=== PATIENT | male | born 1960 | race Caucasian/White ===

== ENCOUNTER 2016-07-06 14:42 | Inpatient (IN) | payer MEDICARE, MEDICAID ==
[~2016-07-06] VITALS: Ht 177.8 cm; Wt 56.7 kg
[~2016-07-06 14:42] MED LIST: ACID1TAB12 GT; AMIN30LI25 GT; BLOO-140 IN; EPOE1VIA4 IJ; ESCI10TA GT; GABA-534 GT; HYDR-3026 GT; HYDR-4075 GT; INSU100V26 SQ; IPRA3AMP IH; LORA2TAB GT; NUTR100037 GT; OMEP40CA37 GT; ONDA-25 GT; [UNRECOGNIZED DRUG - CODE] GT
--- NOTE | 2016-07-06 14:53 | NUR ---
PT TRANSFER BY [facility] "LOW BLOOD PRESSURE AT DIALYSIS 74/43". PT ALWAKE ORIENTED WITH TRACH ON COOL AEROSOL. NO DISTRESS. DENIES ANY PAIN. PT HAS COLOSTOMY BAG. PT HAS SUPRAPUBIC CATH. PLACED ON MONITOR. VSS. AWAITING MD ORDER
[2016-07-06 15:34] LABS: BASOPHILS # (AUTO) 0.1 /CMM (0.0-0.2); BASOPHILS % (AUTO) 0.3 % (0.0-2.0); EOSINOPHILS # (AUTO) 0.2 /CMM (0.0-0.7); EOSINOPHILS % (AUTO) 0.8 % (0.0-6.0); HEMATOCRIT 42 % (39-51); HEMOGLOBIN 12.4 g/dL (13.5-17.5); LYMPHOCYTES # (AUTO) 0.5 /CMM (0.8-4.8); LYMPHOCYTES % (AUTO) 2.5 % (20.0-44.0); MEAN CORPUSCULAR HEMOGLOBIN 33 PG (26.0-33.0); MEAN CORPUSCULAR HGB CONC 30 g/dl (31.0-36.0); MEAN CORPUSCULAR VOLUME 110 fL (80-96); MONOCYTES # (AUTO) 1.8 /CMM (0.1-1.30); NEUTROPHILS # (AUTO) 17.1 /CMM (1.8-8.9); NEUTROPHILS % (AUTO) 87.4 % (43.0-81.0); PLATELET COUNT (AUTO) 315 /CMM (150-450); RDW COEFFICIENT OF VARIATION 18.7 (11.5-15.0); RED BLOOD CELL COUNT(AUTO) 3.77 MIL/uL (4.5-6.0); WHITE BLOOD COUNT (AUTO) 19.7 K/uL (4.3-11.0)
[2016-07-06 15:44] LABS: CALCIUM, SERUM 10.1 mg/dL (8.5-10.1); POTASSIUM 4.3 mmol/L (3.5-5.1)
[2016-07-06 15:49] LABS: INR 1.06 (0.87-1.13)
[2016-07-06 15:51] LABS: ALBUMIN 2.9 g/dL (3.4-5.0); BILIRUBIN,DIRECT 0.1 mg/dL (0.0-0.2); BILIRUBIN,TOTAL 0.4 mg/dL (0.2-1.0); TOTAL PROTEIN, SERUM 7.7 g/dL (6.4-8.2)
[2016-07-06 15:52] LABS: TROPONIN I 0.07 ng/mL (0.00-0.056)
[2016-07-06 16:02] LABS: PARTIAL THROMBOPLASTIN TIME > 240 SEC (23-34)
[2016-07-06] MEDS ORDERED: VANCOMYCIN 1 GM in IV D5W 250 ML IV ONE (16:30)
[2016-07-06] MEDS ORDERED: CEFEPIME 1 GM in IV D5W 50 ML IV ONE (16:30)
--- NOTE | 2016-07-06 16:30 | NUR ---
TYLER #20 IV ACCESS BLOOD SAMPLE COLLECTED SENT TO LAB
[2016-07-06] MEDS ORDERED: IV SET PRIMARY PUMP SET 1 EA INFUS.SET MC ONE (16:44)
[2016-07-06] MEDS ORDERED: IV NS 0.9% 500 ML IV ONE (16:44)
--- NOTE | 2016-07-06 16:51 | NUR ---
PAGED DR KRIS SALDANA
[2016-07-06] MEDS ORDERED: IV NS 0.9% 500 ML BAG IV ONE (17:00)
[2016-07-06] MEDS ORDERED: LIDOCAINE 2% JEL UROJET 10 ML MM ONE (17:00)
--- NOTE | 2016-07-06 17:00 | NUR ---
GAVE REPORT TO YULIET
--- NOTE | 2016-07-06 17:00 | NUR ---
GAVE REPORT TO VIVIANA HORVATH TELEMETRY [id number]
[2016-07-06 17:11] LABS: BAND % (MANUAL) 3 % (0.0-5.0); LYMPHOCYTES % (MANUAL) 4 % (16-48); MONOCYTES % (MANUAL) 11 % (0-11.0); NEUTROPHILS % (MANUAL) 82 (42-76)
--- NOTE | 2016-07-06 17:29 | NUR ---
ULTRASOUND AT BEDSIDE
[2016-07-06] MEDS ORDERED: METO75TA GT (17:33)
[2016-07-06] MEDS ORDERED: ALBU2.5V38 NEB (17:33)
[2016-07-06] MEDS ORDERED: IPRA0.2S49 NEB (17:33)
[2016-07-06] MEDS ORDERED: ASCO500T9 GT (17:33)
[2016-07-06] MEDS ORDERED: INSU100I14 SQ (17:33)
[2016-07-06] MEDS ORDERED: METO10TA3 GT (17:33)
[2016-07-06] MEDS ORDERED: FOLI0.8T2 GT (17:33)
[2016-07-06] MEDS ORDERED: LANS15CA5 GT (17:33)
[2016-07-06] MEDS ORDERED: HYDR-4076 PO (17:33)
[2016-07-06] MEDS ORDERED: POLY15DR57 EACHEYE (17:33)
[2016-07-06] MEDS ORDERED: ACET-868 GT (17:33)
[2016-07-06] MEDS ORDERED: ZINC220T GT (17:33)
[2016-07-06] MEDS ORDERED: PREG25CA GT (17:33)
--- NOTE | 2016-07-06 18:09 | NUR ---
TRANSFER PT VIA GURNEY VIA ACLS PROTOCOL. GAVE REPORT TO YULIET. PT HAS RASHES/REDNESS ON NECK AREA. SHE WILL UPDATE ADMITTING MD. ALSO INFORM NO URINE OUTPUT ON SUPRAPUBIC CATHETER FOR RESIDENT ATHLETIC TRAINER TO COLLECT WHEN PT HAS URINE.
--- NOTE | 2016-07-06 18:15 | NUR ---
LABORER FILTER PLANT NOTES RECEIVED PT FROM E.R. STAFF, AWAKE, ALERT AND ORIENTED, NO COMPLAINT OF PAIN, PT WITH COMPLAINT OF ITCHINESS AT THE NECK AREA, NOT IN DISTRESS, TRACH IN PLACE, INFORMED DR. SALDANA, ADMITTING ORDERS GIVEN, PER MD CONTINUE HOME MEDS, FAXED HOME MEDS TO PHARMACY, VITAL SIGNS TAKEN AND RECORDED, KEPT PT COMFORTABLE.
--- NOTE | 2016-07-06 18:15 | NUR ---
EXTRAS CASTING DIRECTOR NOTES PER OJSE G NAGEL TO CONTINUE CEFEPIME, PT ALLERGIC TO PENICILLIN, ENDORSED TO GENERAL MAINTENANCE MECHANIC NURSE TO FOLLOW UP.
[2016-07-06 18:20] VITALS: BP 116/71
[2016-07-06 19:00] VITALS: BP 106/67
[2016-07-06] MEDS ORDERED: ALBUTEROL FS 2.5 MG/3 ML VIAL.NEB NEB PRN (19:00)
[2016-07-06] MEDS ORDERED: ACETAMINOPHEN 650 MG/20.3 ML UDC GT PRN (19:00)
[2016-07-06] MEDS ORDERED: POLYVINYL ALCOHOL 15 ML BOTTLE EACHEYE PRN (19:00)
[2016-07-06] MEDS ORDERED: DEXTROSE 50%-WATER 50 ML DISP.SYRIN IV PRN ×2 (19:00)
[2016-07-06] MEDS ORDERED: RENAL NOVASOURCE 1,000 ML BOTTLE GT PRN (19:00)
[2016-07-06] MEDS ORDERED: IPRATROPIUM NEB FS 0.5 MG/2.5 ML AMPUL.NEB NEB PRN (19:00)
[2016-07-06 20:00] VITALS: BP 106/67
--- NOTE | 2016-07-06 20:00 | NUR ---
RECEIVED PATIENT IN BED, ALERT AND ORIENTED X3, CALM WITH EPISODES OF RESTLESSNESS AND ANXIETY. ON COOL AEROSOL WITH 28% O2 AND 5LPM VIA TRACH. LUNG SOUNDS WITH RONCHI. ABLE TO SPEAK, WITH DELAYED SPEECH, UNDERSTANDABLE, ABLE TO VERBALIZE NEEDS. ABDOMEN SOFT AND NON-TENDER, PEG TUBE DEPENDENT, NOVASOURCE AT 65 CC/HR, FEEDING TOLERATED WELL, ILEOSTOMY BAG CHANGED, OUTPUT OF GREENISH DRAINAGE WITH THIN LIQUID CONSISTENCY, SUPRAPUBIC SITE WITH EXCORIATION, CLEANSE WITH NS AND COVERED WITH DRY DRESSING, CATHETER DRAINING OF CLOUDY URINE. PATIENT IS ALSO HAS ESRD ON HD. S/P HD BEFORE ADMISSION. SACRAL PARTIAL THICKNESS LOSS, CLEANSE WITH NS, PAT DRY, PROTECTED WITH MEPILEX. NOTED EXCORIATION SURROUNDING THE ILEOSTOMY SITE. KEPT HOB ELEVATED, ON ASPIRATION PRECAUTION. SKIN ASSESSMENT PERFORMED, ORIENTED TO ROOM, BED AND USE OF CALL LIGHT. WILL CONTINUE TO MONITOR.
[2016-07-06] MEDS: METOPROLOL TARTRATE 25 MG TABLET GT SCH (21:00)
[2016-07-06] MEDS: hydrALAZINE HCL 25 MG TABLET GT SCH (21:00)
[2016-07-06] MEDS ORDERED: BLOOD SUGAR DIAGNOSTIC 1 EACH STRIP IN SCH (22:00)
[2016-07-06] MEDS: BLOOD SUGAR DIAGNOSTIC 1 EACH STRIP IN SCH (23:00)
[2016-07-06] MEDS: INSULIN ASPART NOVOLOG 100 UNIT/ML CARTRIDGE SQ PRN (23:03)
--- NOTE | 2016-07-06 23:03 | NUR ---
BG 86 MG/DL, NO INSULIN COVERAGE. PATIENT ON NOVASOURCE 65 CC/HR VIA PEG TUBE FEEDING. WILL CONTINUE TO MONITOR.
[2016-07-07] VITALS (7 sets, daily range): BP systolic 88–136; BP diastolic 50–78
[2016-07-07] MEDS: METOCLOPRAMIDE HCL 10 MG TABLET GT SCH ×5 (00:29→23:55)
--- NOTE | 2016-07-07 01:15 | NUR ---
PATIENT HAS X2 EPISODES OF VOMITING WITH WHITISH EMESIS, OUTPUT OF 300 CC, KEPT HOB ELEVATED. PEG TUBE FEEDING HELD. PROVIDED GOOD ORAL CARE. KEPT SAFE AND COMFORTABLE, WILL CONTINUE TO MONITOR.
--- NOTE | 2016-07-07 03:00 | NUR ---
PATIENT VOMITED X1 WITH 300 CC OF STOMACH CONTENT EMESIS, GT FEEDING HOLD FOR 2 HOURS. KEPT HOB ELEVATED, ON ASPIRATION PRECAUTION. CALLED DR. TORRES, AWAITING CALL BACK.
--- NOTE | 2016-07-07 04:15 | NUR ---
NEW ORDER FOR ZOFRAN 4 MG IVP Q4HRS PRN FOR N/V, ORDER NOTED AND CARRIED OUT
[2016-07-07] MEDS ORDERED: ONDANSETRON HCL/PF 4 MG/2 ML VIAL ONE (04:52)
[2016-07-07] MEDS: hydrALAZINE HCL 25 MG TABLET GT SCH ×3 (05:00→21:00)
--- NOTE | 2016-07-07 05:08 | NUR ---
PATIENT REFUSING REGLAN, PER PATIENT "MAKES ME THROW UP", PATIENT VOMITTED X4 OF NOW
[2016-07-07] MEDS: BLOOD SUGAR DIAGNOSTIC 1 EACH STRIP IN SCH ×4 (06:06→21:44)
[2016-07-07] MEDS: INSULIN ASPART NOVOLOG 100 UNIT/ML CARTRIDGE SQ PRN ×2 (06:10→21:48)
--- NOTE | 2016-07-07 06:14 | NUR ---
BG 77 MG/DL, NO INSULIN COVERAGE, GT FEEDING RE STARTED
--- NOTE | 2016-07-07 06:23 | NUR ---
PATIENT IS ALERT AND AWAKE, WITH EPISODES OF RESTLESSNESS, CALLING OUT, NO SOB, ON TRACH, ON COOL AEROSOL AT 02 28%, ON 5LPM VIA TRACH COLLAR. ABLE TO VERBALIZE NEEDS, DENIES ANY PAIN AT THIS TIME. VOMITED X4, GIVEN ZOFRAN 4 MG IVP Q4HRS PRN. GIVEN REGLAN AT 12 AM, PATIENT STARTED VOMITING, BEFORE REGLAN, PATIENT DID NO VOMIT. ON SCHEDULED AT 6AM, PATIENT REFUSED REGLAN. VOMITED AGAIN AT 4AM. GT FEEDING HELD FOR 2 HOURS, RESUMED AT 0600. BG IS 77, PATIENT SAID "I FEEL ALRIGHT." SUPRAPUBIC CATHETER HAS SCANT CLOUDY OUTPUT, ILEOSTOMY HAS 900 CC GREENISH, LIQUID OUTPUT. KEPT HOB ELEVATED, SUCTIONED PRN, KEPT SAFE AND COMFORTABLE, CALL LIGHT WITHIN REACH.
--- NOTE | 2016-07-07 07:30 | NUR ---
HAND BRUSH FILLER NOTES PT IN BED, ASLEEP, EASY TO AROUSE, NO COMPLAINT OF PAIN, NOT IN DISTRESS, TRACH IN PLACE WITH COOL AEROSOL, NO EPISODE OF NAUSEA OR VOMITING AT THIS TIME, GT FEEDING INFUSING WELL, KEPT HOB ELEVATED, REPOSITIONED FOR COMFORT.
[2016-07-07 07:43] LABS: CALCIUM, SERUM 9.8 mg/dL (8.5-10.1); CREATININE 3.9 mg/dL (0.6-1.3); POTASSIUM 4.5 mmol/L (3.5-5.1)
[2016-07-07] MEDS ORDERED: PANTOPRAZOLE 40 MG/PACK PACK GT SCH (09:00)
[2016-07-07 09:22] LABS: BASOPHILS # (AUTO) 0.1 /CMM (0.0-0.2); BASOPHILS % (AUTO) 0.4 % (0.0-2.0); EOSINOPHILS # (AUTO) 0.4 /CMM (0.0-0.7); EOSINOPHILS % (AUTO) 3.5 % (0.0-6.0); HEMATOCRIT 42 % (39-51); HEMOGLOBIN 12.4 g/dL (13.5-17.5); LYMPHOCYTES # (AUTO) 0.6 /CMM (0.8-4.8); MEAN CORPUSCULAR HEMOGLOBIN 33 PG (26.0-33.0); MEAN CORPUSCULAR HGB CONC 30 g/dl (31.0-36.0); MEAN CORPUSCULAR VOLUME 109 fL (80-96); MONOCYTES # (AUTO) 1.7 /CMM (0.1-1.30); MONOCYTES % (AUTO) 14.4 % (2.0-12.0); NEUTROPHILS # (AUTO) 9.1 /CMM (1.8-8.9); NEUTROPHILS % (AUTO) 76.7 % (43.0-81.0); PLATELET COUNT (AUTO) 360 /CMM (150-450); RDW COEFFICIENT OF VARIATION 20.6 (11.5-15.0)
[2016-07-07] MEDS: METOPROLOL TARTRATE 25 MG TABLET GT SCH ×2 (09:46→21:00)
[2016-07-07] MEDS: ZINC SULFATE 220 MG CAPSULE GT SCH (09:46)
[2016-07-07] MEDS: ONDANSETRON HCL/PF 4 MG/2 ML VIAL IV PRN ×2 (09:46→17:19)
[2016-07-07] MEDS: VIT B CMPLX 3/FA/VIT C/BIOTIN 1 TAB TABLET GT SCH (09:46)
[2016-07-07] MEDS: GABAPENTIN 300 MG CAPSULE GT SCH ×3 (09:47→17:09)
[2016-07-07] MEDS: ASCORBIC ACID 500 MG TABLET GT SCH (09:47)
[2016-07-07] MEDS: PREGABALIN 25 MG CAPSULE GT SCH ×2 (09:47→17:09)
[2016-07-07 12:11] LABS: BAND % (MANUAL) 1 % (0.0-5.0); EOSINOPHILS % (MANUAL) 7 % (0-4); LYMPHOCYTES % (MANUAL) 5 % (16-48); MONOCYTES % (MANUAL) 9 % (0-11.0); NEUTROPHILS % (MANUAL) 78 (42-76)
[2016-07-07 12:12] LABS: ANISOCYTOSIS 2+
[2016-07-07 12:13] LABS: PLATELET ESTIMATE ADEQU
[2016-07-07 12:14] LABS: WHITE BLOOD COUNT (AUTO) 11.8 K/uL (4.3-11.0)
[2016-07-07] MEDS ORDERED: Z GUARD REMEDY 2 OZ OINT TP PRN (13:00)
[2016-07-07] MEDS: Z GUARD REMEDY 2 OZ OINT TP SCH ×2 (13:00→17:10)
--- NOTE | 2016-07-07 13:15 | NUR ---
WOUND CARE CONSULT: PATIENT SEEN AND SKIN ASSESSMENT DONE. PARAPLEGIC AND TRACH DEPENDENT PATIENT, ALERT, ON GT FEEDING, HAS COLOSTOMY AND SUPRAPUBIC CATHETER, ROBERTO 12, NURSING STAFF ORDERED REGGIE ISOFLEX LANCE BED AND WILL BE PLACED WHEN AVAILABLE IN THE UNIT. SEE TODAY'S SKIN ASSESSMENT IN PCS ALONG WITH RECOMMENDATIONS. RECOMMEND SKIN/MOISTURE PROTECTION WITH Z GUARD ORDERED, TURN AND REPOSITION EVERY 2 HRS PATIENT CONDITION PERMITS, OFFLOAD BOTH HEELS. ALL DISCUSSED WITH NURSING STAFF. MD IN AGREEMENT WITH PLAN OF CARE. Addendum: 07/07/16 at 1319 by ALEAH TOBIN WNDNU Amended: Links added.
--- NOTE | 2016-07-07 13:28 | NUR ---
INSURANCE UNDERWRITER SALES NOTES DR. CHAIDEZ INFORMED OF PT'S EPISODES OF NAUSEA AND VOMITING WELL LOW BLOOD PRESSURE, MD AGREED WITH PROGRAM SUPPORT CLERK'S RECOMMENDATION TO REDUCE GT FEEDING RATE TO 40CC/HR, PT DOES NOT COMPLAIN OF HEADACHE OR DIZZINESS, WILL CONTINUE TO MONITOR.
[2016-07-07] MEDS: CLOTRIMAZOLE 1% 15 GM TUBE TP SCH ×2 (15:27→17:10)
[2016-07-07] MEDS: HYDROGEL DRESSING 90 GM TUBE TP SCH (15:27)
[2016-07-07] MEDS: CEFEPIME 1 GM in IV D5W 50 ML IV SCH (18:00)
--- NOTE | 2016-07-07 18:47 | NUR ---
SWITCHBOARD RECEPTIONIST NOTES PT IN BED, AWAKE, ALERT AND ORIENTED, NO COMPLAINT OF PAIN, NO EPISODE OF NAUSEA OR VOMITING AT THIS TIME, GT FEEDING INFUSING WELL, COLOSTOMY BAG IN PLACE, DRAINED NEEDED, SKIN TREATMENTS DONE, SUPRAPUBIC CATH IN PLACE, DRAINING MINIMALLY, PT REFUSED REGLAN AND CEFEPIME, STATED REGLAN MAKES HIM VOMIT AND CEFEPIME GIVES HIM RASHES AND ITCHINESS, PM CARE RENDERED, REPOSITIONED FOR COMFORT AND CIRCULATION, ALL NEEDS ATTENDED.
--- NOTE | 2016-07-07 19:48 | NUR ---
RECEIVED PATIENT ALERT AND AWAKE, WITH EPISODES OF RESTLESSNESS, CALLING OUT. ON TRACH WITH COOL AEROSOL AT 5LPM WITH 02 OF 28%. NO SOB, NO DISTRESS, 02 SAT 100%, DENIES ANY PAIN AT THIS TIME. ON GT FEEDING AT 40 CC/HR, TOLERATING WELL AT THIS TIME, NO VOMITING NOTED AT THIS TIME, SUPRAPUBIC CATHETER IS PATENT, DRAINING WITH SCANT AND CLOUDY URINE. COLOSTOMY IS DRAINING WELL WITH GREENISH AND LIQUID STOOL. KEPT HOB ELEVATED, REPOSITIONED FOR COMFORT. CALL LIGHT WITHIN REACH.
[2016-07-07] MEDS: RENAL NOVASOURCE 1,000 ML BOTTLE GT PRN (20:23)
--- NOTE | 2016-07-07 21:48 | NUR ---
BG 98 MG/DL, NO INSULIN COVERAGE, PATIENT ON GT FEEDING AT 40 CC/HR. NO VOMITING AT THIS TIME.
--- NOTE | 2016-07-07 21:50 | NUR ---
APRESOLINE AND LOPRESSOR HELD, BP 97/58 HR 84. WILL CONTINUE TO MONITOR.
[2016-07-08] VITALS: BP 104/61
[2016-07-08] MEDS: ONDANSETRON HCL/PF 4 MG/2 ML VIAL IV PRN (00:13)
--- NOTE | 2016-07-08 00:30 | NUR ---
PATIENT STARTED VOMITING X2, EMESIS IS STOMACH CONTENTS, MOSTLY MILK PARTICLES, GT FEEDING HELD FOR 2 HOURS. SUPPORTIVE CARE PROVIDED, ASPIRATION PRECAUTION, WILL CONTINUE TO MONITOR.
--- NOTE | 2016-07-08 00:45 | NUR ---
PATIENT STILL VOMITING, NOTED RUST COLORED EMESIS, WILL NOTIFY
--- NOTE | 2016-07-08 01:04 | NUR ---
NOTIFIED DR. CHAIDEZ REGARDING PT HAVING EPISODES OF VOMITING RUST COLORED EMESIS. MD ORDERED CBC X2 Q4HRS, TYPE AND CROSS X1, 1 UNIT PRBC, ABD ULISIS KUB, PROTONIX 40 MG IVP Q12 HOURS, DISCONTINUE PROTONIX 4O MG VIA GT.
[2016-07-08] MEDS ORDERED: PANTOPRAZOLE 40 MG VIAL ONE (01:27)
[2016-07-08] MEDS: PANTOPRAZOLE 40 MG VIAL IV SCH ×3 (01:31→21:45)
--- NOTE | 2016-07-08 01:38 | NUR ---
VOMITING CEASED, PATIENT VERBALIZED RELIEF. PROVIDED GOOD BED BATH, ORAL CARE, ILEOSTOMY CARE AND WOUND CARE.
[2016-07-08 02:24] LABS: BASOPHILS % (AUTO) 0.3 % (0.0-2.0); EOSINOPHILS # (AUTO) 0.3 /CMM (0.0-0.7); EOSINOPHILS % (AUTO) 2.2 % (0.0-6.0); HEMATOCRIT 46 % (39-51); HEMOGLOBIN 13.7 g/dL (13.5-17.5); LYMPHOCYTES # (AUTO) 0.5 /CMM (0.8-4.8); LYMPHOCYTES % (AUTO) 4.4 % (20.0-44.0); MEAN CORPUSCULAR HEMOGLOBIN 33 PG (26.0-33.0); MEAN CORPUSCULAR HGB CONC 30 g/dl (31.0-36.0); MEAN CORPUSCULAR VOLUME 110 fL (80-96); MONOCYTES # (AUTO) 1.6 /CMM (0.1-1.30); MONOCYTES % (AUTO) 12.8 % (2.0-12.0); NEUTROPHILS # (AUTO) 9.9 /CMM (1.8-8.9); NEUTROPHILS % (AUTO) 80.3 % (43.0-81.0); PLATELET COUNT (AUTO) 337 /CMM (150-450); RDW COEFFICIENT OF VARIATION 20.4 (11.5-15.0); RED BLOOD CELL COUNT(AUTO) 4.15 MIL/uL (4.5-6.0); WHITE BLOOD COUNT (AUTO) 12.4 K/uL (4.3-11.0)
[2016-07-08] MEDS ORDERED: METOCLOPRAMIDE HCL 10 MG/2 ML VIAL ONE (03:56)
[2016-07-08 04:00] VITALS: BP 93/67
[2016-07-08 04:14] LABS: BAND % (MANUAL) 1 % (0.0-5.0); EOSINOPHILS % (MANUAL) 2 % (0-4); LYMPHOCYTES % (MANUAL) 2 % (16-48); MONOCYTES % (MANUAL) 13 % (0-11.0); NEUTROPHILS % (MANUAL) 82 (42-76)
[2016-07-08 04:15] LABS: ANISOCYTOSIS 3+; PLATELET ESTIMATE ADEQUATE
[2016-07-08] MEDS: hydrALAZINE HCL 25 MG TABLET GT SCH ×3 (04:47→20:55)
--- NOTE | 2016-07-08 04:54 | NUR ---
APRESOLINE HELD, SECONDARY TO DECREASED BP 108/67 HR 80
[2016-07-08] MEDS: METOCLOPRAMIDE HCL 10 MG/2 ML VIAL IV SCH ×4 (05:41→23:20)
--- NOTE | 2016-07-08 05:57 | NUR ---
PATIENT RESTING COMFORTABLY, NO DISTRESS, NO SOB, NO VOMITING AT THIS TIME. PROVIDED GOOD ORAL CARE.
[2016-07-08] MEDS: BLOOD SUGAR DIAGNOSTIC 1 EACH STRIP IN SCH ×4 (06:12→21:42)
[2016-07-08] MEDS: INSULIN ASPART NOVOLOG 100 UNIT/ML CARTRIDGE SQ PRN ×2 (06:16→22:55)
--- NOTE | 2016-07-08 06:16 | NUR ---
BG 95 MG/DL, NO INSULIN COVERAGE
--- NOTE | 2016-07-08 06:46 | NUR ---
PATIENT IS RESTING COMFORTABLY, AROUSEABLE BY VOICE AND TOUCH. NO SOB, NO DISTRESS, NO VOMITING AT THIS TIME. NPO FOR KUB IN AM. ADMINISTERED ZOFRAN 4MG IVP, PROTONIX 40 IVP AND REGLAN 10 MG IVP. BP RUNS LOW, BG IS LOW. REPOSITIONED FOR COMFORT, ILEOSTOMY EMPTIED, SUPRAPUBIC CATHETER HAS SCANT OUTPUT, KEPT SAFE AND COMFORTABLE, CALL LIGHT WITHIN REACH.
[2016-07-08 07:09] LABS: BASOPHILS % (AUTO) 0.2 % (0.0-2.0); EOSINOPHILS # (AUTO) 0.1 /CMM (0.0-0.7); HEMATOCRIT 42 % (39-51); HEMOGLOBIN 12.6 g/dL (13.5-17.5); LYMPHOCYTES # (AUTO) 0.6 /CMM (0.8-4.8); LYMPHOCYTES % (AUTO) 3.7 % (20.0-44.0); MEAN CORPUSCULAR HEMOGLOBIN 33 PG (26.0-33.0); MEAN CORPUSCULAR HGB CONC 30 g/dl (31.0-36.0); MEAN CORPUSCULAR VOLUME 109 fL (80-96); MONOCYTES # (AUTO) 1.9 /CMM (0.1-1.30); MONOCYTES % (AUTO) 12.8 % (2.0-12.0); NEUTROPHILS # (AUTO) 12.2 /CMM (1.8-8.9); NEUTROPHILS % (AUTO) 82.3 % (43.0-81.0); PLATELET COUNT (AUTO) 337 /CMM (150-450); RED BLOOD CELL COUNT(AUTO) 3.81 MIL/uL (4.5-6.0); WHITE BLOOD COUNT (AUTO) 14.8 K/uL (4.3-11.0)
--- NOTE | 2016-07-08 07:15 | NUR ---
PATIENT IN BED, ASLEEP BUT EASILY AROUSABLE, NO S/SX OF DISTRESS AT THIS TIME, NO EPISODE OF VOMITING, DENIES PAIN OR DISCOMFORT, HOB ELEVATED AT ALL TIMES, NPO FOR KUB, CALL LIGHT WITHIN REACH, SAFETY MEASURES IN PLACED, WILL CONTINUE TO MONITOR.
[2016-07-08 08:00] VITALS: BP 80/50
[2016-07-08] MEDS: HYDROGEL DRESSING 90 GM TUBE TP SCH (08:32)
[2016-07-08] MEDS: Z GUARD REMEDY 2 OZ OINT TP SCH ×2 (08:33→16:54)
[2016-07-08 08:48] LABS: LYMPHOCYTES % (MANUAL) 5 % (16-48); MONOCYTES % (MANUAL) 7 % (0-11.0); NEUTROPHILS % (MANUAL) 88 (42-76)
[2016-07-08 08:49] LABS: ANISOCYTOSIS 1+; PLATELET ESTIMATE ADEQUATE; TARGET CELLS 1+
[2016-07-08] MEDS: VIT B CMPLX 3/FA/VIT C/BIOTIN 1 TAB TABLET GT SCH (09:00)
[2016-07-08] MEDS: METOPROLOL TARTRATE 25 MG TABLET GT SCH ×2 (09:00→20:55)
[2016-07-08] MEDS: ZINC SULFATE 220 MG CAPSULE GT SCH (09:00)
[2016-07-08] MEDS: GABAPENTIN 300 MG CAPSULE GT SCH ×3 (09:00→16:54)
[2016-07-08] MEDS: ASCORBIC ACID 500 MG TABLET GT SCH (09:00)
[2016-07-08] MEDS: PREGABALIN 25 MG CAPSULE GT SCH ×2 (09:00→16:54)
--- NOTE | 2016-07-08 09:00 | NUR ---
PATIENT NOTED WITH BLOOD PRESSURE OF 77/51, RETAKEN WITH MANUAL BLOOD PRESSURE WITH RESULT OF 80/50, DR. SALDANA MADE AWARE WITH NO NEW ORDER AT THIS TIME, PATIENT IN STABLE CONDITION, NO CHANGE IN LOC, CURRENTLY ON NPO FOR ABDOMINAL X-RAY/KUB, PATIENT DENIES PAIN OR DISCOMFORT AT THIS TIME, CALL LIGHT WITHIN REACH, WILL CONTINUE TO MONITOR.
--- NOTE | 2016-07-08 09:30 | NUR ---
X-RAY TAKEN, RESULT PENDING.
[2016-07-08] MEDS: CLOTRIMAZOLE 1% 15 GM TUBE TP SCH ×2 (11:14→16:55)
[2016-07-08 12:00] VITALS: BP 85/53
[2016-07-08] MEDS ORDERED: RENAL NOVASOURCE 1,000 ML BOTTLE GT SCH (13:00)
--- NOTE | 2016-07-08 13:00 | NUR ---
RECEIVED NEW ORDERS FROM DR. SALDANA, ORDERS NOTED AND CARRIED OUT.
[2016-07-08] MEDS: RENAL NOVASOURCE 1,000 ML BOTTLE GT PRN (13:12)
[2016-07-08 16:00] VITALS: BP 90/58
[2016-07-08 16:04] LABS: APPEARANCE,URINE TURBID (CLEAR); COLOR,URINE YELLOW (YELLOW)
[2016-07-08 16:06] LABS: BILIRUBIN,URINE NEGATIVE (NEGATIVE); BLOOD, URINE 2+ Ery/uL (NEGATIVE); KETONES,URINE NEGATIVE (NEGATIVE); LEUKOCYTE ESTERASE ,URINE 3+ (NEGATIVE); NITRITE, URINE POSITIVE (NEGATIVE); PROTEIN,URINE 3+ mg/dl (NEGATIVE); UGLUCOSE NEGATIVE (NEGATIVE); UROBILINOGEN,URINE NORMAL EU/dL (0.2)
[2016-07-08 16:08] LABS: ADD URINE CULTURE YES; BACTERIA,URINE Rare /HPF (None Seen); SQUAMOUS EPITHELIAL CELL,UR None Seen /HPF (None Seen); WBC,URINE TOO NUMEROUS TO COUN /HPF (0-3)
[2016-07-08] MEDS ORDERED: IV SET PRIMARY PUMP SET 1 EA INFUS.SET MC ONE (17:54)
[2016-07-08] MEDS ORDERED: SECONDARY IV SET 1 EA INFUS.SET MC ONE ×2 (17:54→21:10)
[2016-07-08] MEDS ORDERED: IV NS 0.9% 250 ML IV ONE (17:54)
[2016-07-08] MEDS: CEFEPIME 1 GM in IV D5W 50 ML IV SCH (18:00)
--- NOTE | 2016-07-08 19:00 | NUR ---
RN MS NOTES PATIENT STILL WAITING FOR HEMODIALYSIS, NO SIGNIFICANT CHANGES, ILEOSTOMY DRAINED WITH 150CC OUTPUT, NO EPISODE OF VOMITING DURING THIS SHIFT, HOB ELEVATED AT ALL TIMES FOR ASPIRATION PRECAUTION, PATIENT IS CURRENTLY ON GTF NOVASOURCE 40ML/HR, AND TOLERATING WELL, SAFETY MEASURES WITHIN REACH, CALL LIGHT WITHIN REACH, ENDORSED TO MICA INSPECTOR FOR CLAUDIA.
--- NOTE | 2016-07-08 19:44 | NUR ---
RN MS - INITIAL NOTES PATIENT IN BED CURRENTLY ASLEEP AT THIS TIME. NO S/S OF SOB OR ANY DISCOMFORT NOTED. GT FEEDING IN-PLACE AND INTACT NOVASOURCE RUNNING AT 40 ML/HR. LEFT HAND #[address] AND PATENT[address] FLUSHES VERY WELL AND NO RESISTANCE NOTED. RIGHT IJ HD CATH IN PLACE. PATIENT IS SCHEDULED TO HAVE DIALYSIS TONIGHT. WILL FOLLOW UP.
[2016-07-08 20:00] VITALS: BP_SYST 81; BP_DIAS 45; BP_DIAS 48
--- NOTE | 2016-07-08 20:02 | NUR ---
RN MS - NOTES @1949 CALLED DIALYSIS NURSE AND INFORMED OSITO REGARDING DIALYSIS ORDER FOR TODAY. OSITO SAID HE WILL CALL ME BACK AND FIND OUT. @1999 STARLA CALLED FROM DIALYSIS AND SHE SAID SHE WILL BE HERE AROUND 9PM-10PM. NOTED.
[2016-07-08] MEDS ORDERED: ALBUMIN 25% 50 ML IV ONE (21:19)
[2016-07-08] MEDS ORDERED: ALBUMIN 25% 25 GM in PREMIX 1 EA IV PRN (21:30)
[2016-07-09] MEDS: hydrALAZINE HCL 25 MG TABLET GT SCH ×2 (04:25→13:00)
[2016-07-09] MEDS: METOCLOPRAMIDE HCL 10 MG/2 ML VIAL IV SCH ×2 (05:39→11:49)
[2016-07-09] MEDS: BLOOD SUGAR DIAGNOSTIC 1 EACH STRIP IN SCH ×2 (06:11→11:48)
[2016-07-09] MEDS: INSULIN ASPART NOVOLOG 100 UNIT/ML CARTRIDGE SQ PRN (06:15)
--- NOTE | 2016-07-09 06:38 | NUR ---
RN MS - CLOSING NOTES PATIENT REMAINS STABLE. TUBE FEEDING OFF X17 HOURS. NO SIGNS AND SYMPTOMS OF SOB OR ANY DISCOMFORT NOTED. BED IN LOW POSITION AND LOCKED. SIDERAILS X2 UP. PATIENT HAD DIALYSIS LAST NIGHT. WILL ENDORSE TO MORNING NURSE FOR CONTINUITY OF CARE.
[2016-07-09 06:42] LABS: BASOPHILS # (AUTO) 0.1 /CMM (0.0-0.2); BASOPHILS % (AUTO) 0.5 % (0.0-2.0); EOSINOPHILS # (AUTO) 0.4 /CMM (0.0-0.7); EOSINOPHILS % (AUTO) 4.4 % (0.0-6.0); HEMATOCRIT 41 % (39-51); HEMOGLOBIN 12.3 g/dL (13.5-17.5); LYMPHOCYTES # (AUTO) 0.7 /CMM (0.8-4.8); LYMPHOCYTES % (AUTO) 6.7 % (20.0-44.0); MEAN CORPUSCULAR HEMOGLOBIN 33 PG (26.0-33.0); MEAN CORPUSCULAR HGB CONC 30 g/dl (31.0-36.0); MEAN CORPUSCULAR VOLUME 108 fL (80-96); MONOCYTES # (AUTO) 1.5 /CMM (0.1-1.30); MONOCYTES % (AUTO) 15.6 % (2.0-12.0); NEUTROPHILS # (AUTO) 7.2 /CMM (1.8-8.9); NEUTROPHILS % (AUTO) 72.8 % (43.0-81.0); PLATELET COUNT (AUTO) 317 /CMM (150-450); RDW COEFFICIENT OF VARIATION 19.9 (11.5-15.0); RED BLOOD CELL COUNT(AUTO) 3.74 MIL/uL (4.5-6.0); WHITE BLOOD COUNT (AUTO) 9.9 K/uL (4.3-11.0)
[2016-07-09 07:05] LABS: CREATININE 4.1 mg/dL (0.6-1.3); MAGNESIUM 2.1 mg/dL (1.8-2.4); PHOSPHORUS 4.8 mg/dL (2.5-4.9); POTASSIUM 4.2 mmol/L (3.5-5.1)
--- NOTE | 2016-07-09 07:25 | NUR ---
RN MS NOTES PATIENT IN BED, ASLEEP BUT EASILY AROUSABLE, NO DISTRESS NOTED, HOB ELEVATED, GTF ONGOING AND TOLERATING WELL, 10 CC RESIDUAL, PIV ON LEFT HAND PATENT, FLUSHES WELL WITH NS, SAFETY MEASURES IN PLACED, CALL LIGHT WITHIN REACH, WILL CONTINUE TO MONITOR.
[2016-07-09 08:00] VITALS: BP 87/57
[2016-07-09 08:38] LABS: ANISOCYTOSIS 1+; EOSINOPHILS % (MANUAL) 5 % (0-4); LYMPHOCYTES % (MANUAL) 8 % (16-48); MONOCYTES % (MANUAL) 13 % (0-11.0); NEUTROPHILS % (MANUAL) 74 (42-76); PLATELET ESTIMATE ADEQUATE
[2016-07-09 08:39] LABS: HYPOCHROMASIA 1+
[2016-07-09] MEDS: METOPROLOL TARTRATE 25 MG TABLET GT SCH (09:00)
--- NOTE | 2016-07-09 09:00 | NUR ---
RN MS NOTES PATIENT AWAKE AND ALERT, NO CHANGES IN LOC, HOB ELEVATED, ORAL CARE PROVIED, AM CARE/SKIN CARE RENDERED, TURNED AND REPOSITIONED, WOUND TREATMENT PROVIDED, OFFLOADED BILATERAL HEELS, WILL CONTINUE TO MONITOR.
[2016-07-09] MEDS: PANTOPRAZOLE 40 MG VIAL IV SCH (09:09)
[2016-07-09] MEDS: CLOTRIMAZOLE 1% 15 GM TUBE TP SCH (09:09)
[2016-07-09] MEDS: HYDROGEL DRESSING 90 GM TUBE TP SCH (09:09)
[2016-07-09] MEDS: ZINC SULFATE 220 MG CAPSULE GT SCH (09:10)
[2016-07-09] MEDS: GABAPENTIN 300 MG CAPSULE GT SCH ×2 (09:10→13:35)
[2016-07-09] MEDS: Z GUARD REMEDY 2 OZ OINT TP SCH (09:10)
[2016-07-09] MEDS: ASCORBIC ACID 500 MG TABLET GT SCH (09:10)
[2016-07-09] MEDS: PREGABALIN 25 MG CAPSULE GT SCH (09:10)
[2016-07-09] MEDS: VIT B CMPLX 3/FA/VIT C/BIOTIN 1 TAB TABLET GT SCH (09:10)
[2016-07-09 13:00] VITALS: BP 90/60
--- NOTE | 2016-07-09 14:09 | NUR ---
d/c back to [facility] [phone], spoke with Annamarie- sadie accepting patient. Spoke with Eileen Holman - next of kin, she is aware and agreed with d/c plan of care. Ambulance lemon picker @ 3:45pm Addendum: 07/09/16 at 1409 by ADDIE HOLLINS RN Amended: Links added.
--- NOTE | 2016-07-09 16:25 | NUR ---
RN MS NOTES PATIENT ALERT AND ORIENTED, NO DISTRESS NOTED, RECEIVED DISCHARGE INSTRUCTIONS, AND VERBALIZED UNDERSTANDING, SKIN ASSESSMENT COMPLETED, PHOTOS TAKEN AND PLACED IN CHART, PATIENT'S IMMUNIZATION IS UP TO DATE, PIV ON LEFT HAND REMOVED WITH NO BLEEDING, REPORT GIVEN TO LOU AT [facility], ALL PAPERWORKS AND MEDICATIONS LISTS GIVEN TO EMT, PATIENT TRANSFERRED TO [facility] ACCOMPANIED BY 2 GROUND SURVEILLANCE SYSTEMS OPERATOR, IN STABLE CONDITION.
== END 2016-07-09 16:30 | DRG 871 ==
LOC: ER 14:47 → TELE 17:05 → MED 07-08 11:20
PROVIDERS: ADMIT Internal Medicine Nephrology; ATTEND Internal Medicine
PROC: 5A1D00Z (ICD-10-PCS; principal; 2016-07-08)
DX: A41.9 Sepsis, unspecified organism (principal); N18.6 End stage renal disease; N39.0 Urinary tract infection, site not specified; I12.0 Hypertensive chronic kidney disease with stage 5 chronic kidney disease or end stage renal disease; G82.20 Paraplegia, unspecified; J96.11 Chronic respiratory failure with hypoxia; J84.9 Interstitial pulmonary disease, unspecified; E11.22 Type 2 diabetes mellitus with diabetic chronic kidney disease; Z99.2 Dependence on renal dialysis; Z93.1 Gastrostomy status; Z93.0 Tracheostomy status; R13.10 Dysphagia, unspecified; Q05.9 Spina bifida, unspecified; K21.9 Gastro-esophageal reflux disease without esophagitis; N31.9 Neuromuscular dysfunction of bladder, unspecified; F32.9 Major depressive disorder, single episode, unspecified
CPT/HCPCS: 31720; 36415; 71010-TC; 74000-TC; 76705-TC; 80048-TC; 80076-TC; 81000-TC; 82962-TC; 83605-TC; 83690-TC; 83735-TC; 84100-TC; 84484-TC; 85025-TC; 85730-TC; 86850-TC; 87040-TC; 87081-TC; 87086-TC; 87186-TC; 94640-TC; A4216; A4217; A4606; A6248; A6403; C9113; J0692; J1815; J2405; J2765; J3370; J7040; J7050; J7060; J8597; P9047; Z7610

== ENCOUNTER 2016-08-06 03:59 | Inpatient (IN) | payer MEDICARE, MEDICAID ==
[~2016-08-06] VITALS: Ht 165.1 cm; Wt 58.1 kg
[~2016-08-06 03:59] MED LIST changes: +ACET-868 GT; -ACID1TAB12 GT; +ALBU2.5V38 NEB; -AMIN30LI25 GT; +ASCO500T9 GT; -BLOO-140 IN; -EPOE1VIA4 IJ; -ESCI10TA GT; +FOLI0.8T2 GT; -HYDR-3026 GT; -HYDR-4075 GT; +HYDR-4076 PO; +INSU100I14 SQ; -INSU100V26 SQ; +IPRA0.2S49 NEB; -IPRA3AMP IH; +LANS15CA5 GT; -LORA2TAB GT; +METO10TA3 GT; +METO75TA GT; -OMEP40CA37 GT; -ONDA-25 GT; +POLY15DR57 EACHEYE; +PREG25CA GT; +ZINC220T GT; -[UNRECOGNIZED DRUG - CODE] GT
--- NOTE | 2016-08-06 04:05 | NUR ---
to bed 4 bib paramedics c/o coffee ground emesis x1, black tarry stool in colostomy bag. pt aaox4 no acute distress noted, resp even and unlabored. pt chronic trache, place pt on 4L/T-tube. place pt on cardiac monitoring, continuous pox. er md at bedside to eval pt with orders received. will carry out orders. started sl 16g to L forearm, blood drawn and sent to lab. 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
[2016-08-06] MEDS ORDERED: ONDANSETRON HCL/PF 4 MG/2 ML VIAL ONE (04:20)
[2016-08-06] MEDS ORDERED: PANTOPRAZOLE 40 MG VIAL ONE (04:20)
[2016-08-06] MEDS ORDERED: IV SET PRIMARY 1 EA INFUS.SET MC ONE (04:20)
[2016-08-06] MEDS ORDERED: IV NS 0.9% 1,000 ML ONE (04:20)
[2016-08-06 04:28] LABS: EOSINOPHILS # (AUTO) 0.2 /CMM (0.0-0.7); EOSINOPHILS % (AUTO) 1.1 % (0.0-6.0); HEMATOCRIT 44 % (39-51); HEMOGLOBIN 13.3 g/dL (13.5-17.5); LYMPHOCYTES # (AUTO) 0.7 /CMM (0.8-4.8); LYMPHOCYTES % (AUTO) 4.3 % (20.0-44.0); MEAN CORPUSCULAR HEMOGLOBIN 32 PG (26.0-33.0); MEAN CORPUSCULAR HGB CONC 30 g/dl (31.0-36.0); MEAN CORPUSCULAR VOLUME 104 fL (80-96); MONOCYTES # (AUTO) 2.1 /CMM (0.1-1.30); MONOCYTES % (AUTO) 12.8 % (2.0-12.0); NEUTROPHILS # (AUTO) 13.3 /CMM (1.8-8.9); NEUTROPHILS % (AUTO) 81.8 % (43.0-81.0); PLATELET COUNT (AUTO) 357 /CMM (150-450); RDW COEFFICIENT OF VARIATION 16.5 (11.5-15.0); RED BLOOD CELL COUNT(AUTO) 4.23 MIL/uL (4.5-6.0); WHITE BLOOD COUNT (AUTO) 16.3 K/uL (4.3-11.0)
[2016-08-06] MEDS ORDERED: ONDANSETRON HCL/PF 4 MG/2 ML VIAL IVP ONE (04:30)
[2016-08-06] MEDS ORDERED: PANTOPRAZOLE 40 MG VIAL IV ONE (04:30)
[2016-08-06] MEDS ORDERED: IV NS 0.9% 1,000 ML BAG IV ONE (04:30)
--- NOTE | 2016-08-06 04:30 | NUR ---
pt medicated by rn per er md order.
[2016-08-06 04:37] LABS: CALCIUM, SERUM 10.7 mg/dL (8.5-10.1); CREATININE 4.2 mg/dL (0.6-1.3); POTASSIUM 5.3 mmol/L (3.5-5.1)
[2016-08-06 04:43] LABS: INR 0.92 (0.87-1.13); PROTHROMBIN TIME 9.8 SECS (9.5-12.7)
[2016-08-06 04:44] LABS: ALBUMIN 3.5 g/dL (3.4-5.0); BILIRUBIN,DIRECT 0.1 mg/dL (0.0-0.2); BILIRUBIN,TOTAL 0.3 mg/dL (0.2-1.0); TOTAL PROTEIN, SERUM 8.4 g/dL (6.4-8.2); TROPONIN I 0.161 ng/mL (0.00-0.056)
--- NOTE | 2016-08-06 05:09 | NUR ---
er md spoke to dr. medel regarding pt admission.
[2016-08-06 05:10] LABS: BAND % (MANUAL) 3 % (0.0-5.0); EOSINOPHILS % (MANUAL) 1 % (0-4); LYMPHOCYTES % (MANUAL) 4 % (16-48); MONOCYTES % (MANUAL) 16 % (0-11.0); NEUTROPHILS % (MANUAL) 76 (42-76)
[2016-08-06 05:11] LABS: ANISOCYTOSIS 1+; PLATELET ESTIMATE GIANT PLATELET SEEN
[2016-08-06] MEDS ORDERED: OLOP5DRO EACHEYE (05:16)
[2016-08-06] MEDS ORDERED: DEXT15DR6 EACHEYE (05:16)
[2016-08-06] MEDS ORDERED: SODI650T GT (05:16)
[2016-08-06] MEDS ORDERED: GABA-534 GT (05:16)
[2016-08-06] MEDS ORDERED: SEVE800T8 GT (05:16)
[2016-08-06] MEDS ORDERED: MIDO10TA GT (05:17)
[2016-08-06] MEDS ORDERED: METO10TA3 GT (05:17)
[2016-08-06] MEDS ORDERED: ASPI-605 GT (05:17)
[2016-08-06] MEDS ORDERED: VIT1TABL44 GT (05:17)
[2016-08-06] MEDS ORDERED: HEPA500014 SQ (05:17)
[2016-08-06] MEDS ORDERED: PANT40TA4 GT (05:17)
[2016-08-06] MEDS ORDERED: ONDA4TAB8 GT (05:17)
[2016-08-06] MEDS ORDERED: HEPA50008 SQ (05:17)
--- NOTE | 2016-08-06 05:24 | NUR ---
report called to tele 1 evi munoz. will transport pt via acls protocol.
[2016-08-06 05:30] VITALS: BP 123/82
--- NOTE | 2016-08-06 05:30 | NUR ---
PROFESSIONAL FIGHTER TO 109 PT RECEIVED VIA GURNEY FROM ER . PT TRANSFERRED TO BED . VITALS STABLE AND L HAND IV INTACT AND HD CATH INTACT . FC INTACT AND PATENT. COLOSTOMY EPMTIED 200 ML BLACK LIQUID STOOL.CALLED DR BHARDWAJ FOR ORDERS. SACRAL AND BILAT BUTTOCK EXCORIATION NOTED , PIC TAKEN WOUND CARE CONSULTED
[2016-08-06 05:42] VITALS: BP 123/82
[2016-08-06] MEDS ORDERED: IV D5/0.45 NACL 1,000 ML IV ONE ×2 (06:00→06:08)
[2016-08-06] MEDS ORDERED: IV SET PRIMARY PUMP SET 1 EA INFUS.SET MC ONE ×2 (06:08→11:39)
[2016-08-06] MEDS ORDERED: BLOO-668 IN (07:27)
[2016-08-06] MEDS ORDERED: EPOE1VIA4 SQ (07:27)
[2016-08-06] MEDS ORDERED: PSYL1PAC8 GT (07:27)
[2016-08-06] MEDS ORDERED: PANT40SU2 GT (07:27)
[2016-08-06] MEDS ORDERED: INSU100V27 SQ (07:27)
[2016-08-06] MEDS ORDERED: ASCO500S2 GT (07:28)
[2016-08-06 07:31] LABS: BASOPHILS % (AUTO) 0.2 % (0.0-2.0); EOSINOPHILS # (AUTO) 0.1 /CMM (0.0-0.7); EOSINOPHILS % (AUTO) 0.8 % (0.0-6.0); HEMATOCRIT 41 % (39-51); HEMOGLOBIN 12.4 g/dL (13.5-17.5); LYMPHOCYTES # (AUTO) 0.8 /CMM (0.8-4.8); LYMPHOCYTES % (AUTO) 4.6 % (20.0-44.0); MEAN CORPUSCULAR HEMOGLOBIN 32 PG (26.0-33.0); MEAN CORPUSCULAR HGB CONC 31 g/dl (31.0-36.0); MEAN CORPUSCULAR VOLUME 105 fL (80-96); MONOCYTES # (AUTO) 3.1 /CMM (0.1-1.30); MONOCYTES % (AUTO) 17.4 % (2.0-12.0); NEUTROPHILS # (AUTO) 13.6 /CMM (1.8-8.9); PLATELET COUNT (AUTO) 334 /CMM (150-450); RDW COEFFICIENT OF VARIATION 16.8 (11.5-15.0); RED BLOOD CELL COUNT(AUTO) 3.88 MIL/uL (4.5-6.0); WHITE BLOOD COUNT (AUTO) 17.7 K/uL (4.3-11.0)
--- NOTE | 2016-08-06 07:39 | NUR ---
HOME MEDICATIONS READY FOR RECONCILIATION. ACCORDING TO NIGHT NURSE, THE MD STATES TO CONTINUE HOME MEDICATIONS HOWEVER THERE IS THE ORDER IN PLACE FOR NPO DUE TO GIB DIAGNOSIS (C/C OF COFFEE GROUND EMESIS). WILL KEEP PT NPO AT THIS TIME AND CLARIFY WITH PRIMARY MD TODAY FOR ORDERS. GI CONSULT ORDERED FOR POSSIBLE GIB.
[2016-08-06 07:57] LABS: CALCIUM, SERUM 10.1 mg/dL (8.5-10.1); CREATININE 4.3 mg/dL (0.6-1.3); MAGNESIUM 2.3 mg/dL (1.8-2.4); PHOSPHORUS 5.2 mg/dL (2.5-4.9); POTASSIUM 5.7 mmol/L (3.5-5.1)
[2016-08-06 08:00] VITALS: BP 89/53
[2016-08-06] MEDS ORDERED: IV NS 0.9% 500 ML BAG IV ONE (11:00)
[2016-08-06] MEDS ORDERED: ACETAMINOPHEN 650 MG/20.3 ML UDC NG PRN (11:00)
[2016-08-06] MEDS ORDERED: Z GUARD REMEDY 2 OZ OINT TP PRN (11:00)
[2016-08-06] MEDS ORDERED: ONDANSETRON HCL/PF 4 MG/2 ML VIAL IV PRN (11:00)
[2016-08-06] MEDS: Z GUARD REMEDY 2 OZ OINT TP SCH ×2 (11:23→17:41)
[2016-08-06] MEDS: CLOTRIMAZOLE 1% 15 GM TUBE TP SCH ×2 (11:23→17:40)
[2016-08-06] MEDS: HYDROGEL DRESSING 90 GM TUBE TP SCH (11:23)
[2016-08-06] MEDS ORDERED: IV NS 0.9% 500 ML IV ONE (11:30)
--- NOTE | 2016-08-06 11:37 | NUR ---
WOUND CARE CONSULT: PATIENT SEEN AND SKIN ASSESSMENT DONE. TRACH VENT DEPENDENT PARAPLEGIC PATIENT, WITH CLAMPED GT, SITE CLEAN AND DRY. PATIENT HAS SUPRAPUBIC CATH AND COLOSTOMY, INTACT. IMMOBILE. ROBERTO 8. NURSING STAFF ORDERED FIRST STEP MATTRESS AND WILL BE PLACED WHEN AVAILABLE IN THE UNIT. SEE TODAY'S SKIN ASSESSMENT IN PCS ALONG WITH RECOMMENDATIONS. RECOMMEND MOISTURE PROTECTION WITH Z GUARD ORDERED. PRESSURE PREVENTION MEASURES, TURN AND REPOSITION EVERY 2 HRS PATIENT CONDITION PERMITS, OFFLOAD BOTH HEELS. ALL DISCUSSED WITH NURSING STAFF. MD IN AGREEMENT WITH PLAN OF CARE.
[2016-08-06 12:00] VITALS: BP 97/54
[2016-08-06] MEDS ORDERED: ALBUTEROL FS 2.5 MG/3 ML VIAL.NEB NEB PRN (13:00)
[2016-08-06] MEDS: GABAPENTIN 300 MG CAPSULE GT SCH ×2 (13:00→16:36)
[2016-08-06] MEDS ORDERED: IPRATROPIUM NEB FS 0.5 MG/2.5 ML AMPUL.NEB NEB PRN (13:00)
--- NOTE | 2016-08-06 13:38 | NUR ---
MEDS RECONCILED BY DR. SALDANA ON THE UNIT, BUT MAINTAINS ORDERS FOR NPO PENDING GI CONSULT. LEFT A MESSAGE WITH DR. PEREZ OFFICE FOR GI CONSULT FOR GI BLEED.
[2016-08-06 16:00] VITALS: BP 95/49
[2016-08-06 16:01] LABS: IRON, SERUM 97 ug/dl (50-175); TOTAL IRON BINDING CAPACITY 253 ug/dl (250-450)
--- NOTE | 2016-08-06 16:03 | NUR ---
DR. PATEL ON THE UNIT. PLANS FOR EGD TOMORROW. DISCUSSES WITH THE PATIENT WHO AGREES. DR. PATEL ORDERS TO KEEP THE PT NPO FOR NOW THERE IS BLACK LIQUID IN HIS COLOSTOMY BAG. EGD TOMORROW MORNING. TIME UNSPECIFIED.
[2016-08-06] MEDS: SEVELAMER CARBONATE 0.8 GM POWD.PACK GT SCH (16:36)
[2016-08-06] MEDS: MIDODRINE HCL (5MG) 5 MG TABLET GT SCH (16:36)
[2016-08-06] MEDS: SODIUM BICARBONATE 650 MG TABLET GT SCH (16:36)
[2016-08-06] MEDS: METOCLOPRAMIDE HCL 10 MG/10 ML UDC GT SCH (16:37)
[2016-08-06] MEDS ORDERED: POLYVINYL ALCOHOL 15 ML BOTTLE OP PRN (17:00)
[2016-08-06] MEDS: OLOPATADINE HCL 0.1% OPHTH BOTTLE EACHEYE SCH (17:40)
[2016-08-06] MEDS ORDERED: METOCLOPRAMIDE HCL 10 MG TABLET GT SCH (18:00)
[2016-08-06] MEDS: BLOOD SUGAR DIAGNOSTIC 1 EACH STRIP IN SCH (18:17)
[2016-08-06 20:00] VITALS: BP 112/70
--- NOTE | 2016-08-06 20:00 | NUR ---
FINA RN NOTES , RECEIVED PTS AND REPORT TO ABHILASH , PTS ON BED ALERT AND VERBALLY RESPONSIVE , ABLE TO MAKE NEEDS KNOWN . KIRILLE ROLO RAND AT 8AM BY DR PATEL , NPO POST MD INSTRUCTED ,TO PTS VERBALIZE UNDERSTANDING . GT CLAMP ALL NEEDS ATTENDED TOO CALL LIGHT WITHIN REACH , KEPT PTS CLEAN DRY AND COMFORTABLE .
--- NOTE | 2016-08-06 22:40 | NUR ---
FINA RN NOTES SPOKE TO PTS SISTER BERRY RE PTS PROCEDURE RAND EGD BY DR HANEY , CONSENT FOR BLOOD PROCEDURE AND ANESTHESIA , OBTAINED VIA PHONE WITNESS BY STEPHAN CHARGE NURSE.
[2016-08-07] VITALS: BP 89/56
--- NOTE | 2016-08-07 | NUR ---
FINA RN NOTES HEMODIALYSIS ON PROGRESS .
[2016-08-07] MEDS: INSULIN LISPRO/ASPART 100 UNIT/ML CARTRIDGE SQ PRN ×2 (00:33→05:39)
--- NOTE | 2016-08-07 00:37 | NUR ---
BLOOD SUGAR FOR 12MN IS 87 NO INSULIN COVERAGE GIVEN, PT SON NPO STATUS BUT ON IV FLUIDS.
--- NOTE | 2016-08-07 01:13 | NUR ---
FINA RN NOTES HEMO DIALYSIS COMPLETED WITH OUTPUT OF 400 CC
[2016-08-07 04:00] VITALS: BP 98/58
[2016-08-07] MEDS: METOCLOPRAMIDE HCL 10 MG/10 ML UDC GT SCH ×5 (05:34→23:43)
[2016-08-07] MEDS: BLOOD SUGAR DIAGNOSTIC 1 EACH STRIP IN SCH ×6 (05:38→23:44)
--- NOTE | 2016-08-07 07:10 | NUR ---
RN INITIAL NOTES RECEIVED PT IN BED, AWAKE A/O X4, ABLE TO MAKE NEEDS KNOWN, PT IS ON A T PIECE, SATING WELL, NO S/S OF RESP. DISTRESS OR SOB NOTED AT THIS TIME, PT IS ON TELE MONITOR SHOWING SR @ 75 BPM, NO C/O OF CHEST PAIN OR DISCOMFORT AT THIS TIME, PT HAS F/C DRAINING YELLOW URINE TO GRAVITY, PT HAS GTUBE CLAMPED AT THIS TIME, COLOSTOMY INTACT/PATENT, PT IS NOTED WITH SKIN ISSUES, PT IS CURRENTLY NPO AT THIS TIME, PT IS SCHEDULED FOR A PROCEDURE, PT HAS LFA #16, RUNNING D5NS @ 75ML/HR, C/D/I/PATENT, FLUSHING WELL, NO S/S OF INFECTION/ INFILTRATION NOTED AT THIS TIME, R JUGULAR HD CATH DRESSING C/D/I, ALL SAFETY MEASURES IN PLACE AT ALL TIMES, CALL LIGHT WITHIN EASY REACH, WILL MONITOR PT CLOSELY FOR CHANGES
[2016-08-07] MEDS: PANTOPRAZOLE 40 MG TABLET.DR PO SCH (07:30)
[2016-08-07 07:31] LABS: BASOPHILS % (AUTO) 0.1 % (0.0-2.0); EOSINOPHILS % (AUTO) 0.2 % (0.0-6.0); HEMATOCRIT 37 % (39-51); HEMOGLOBIN 11.2 g/dL (13.5-17.5); LYMPHOCYTES # (AUTO) 0.5 /CMM (0.8-4.8); LYMPHOCYTES % (AUTO) 3.3 % (20.0-44.0); MEAN CORPUSCULAR HEMOGLOBIN 32 PG (26.0-33.0); MEAN CORPUSCULAR HGB CONC 31 g/dl (31.0-36.0); MEAN CORPUSCULAR VOLUME 104 fL (80-96); MONOCYTES # (AUTO) 2.6 /CMM (0.1-1.30); MONOCYTES % (AUTO) 17.1 % (2.0-12.0); NEUTROPHILS # (AUTO) 12.1 /CMM (1.8-8.9); NEUTROPHILS % (AUTO) 79.3 % (43.0-81.0); PLATELET COUNT (AUTO) 316 /CMM (150-450); RDW COEFFICIENT OF VARIATION 16.3 (11.5-15.0); WHITE BLOOD COUNT (AUTO) 15.3 K/uL (4.3-11.0)
--- NOTE | 2016-08-07 07:40 | NUR ---
RN NOTES PT WAS TAKEN TO PROCEDURE
[2016-08-07 07:44] LABS: CALCIUM, SERUM 9.7 mg/dL (8.5-10.1); CREATININE 3.3 mg/dL (0.6-1.3); MAGNESIUM 2.2 mg/dL (1.8-2.4); PHOSPHORUS 4.1 mg/dL (2.5-4.9); POTASSIUM 4.6 mmol/L (3.5-5.1)
[2016-08-07 08:00] VITALS: BP 102/64
[2016-08-07] MEDS: OLOPATADINE HCL 0.1% OPHTH BOTTLE EACHEYE SCH ×2 (08:22→16:36)
[2016-08-07] MEDS: ZINC SULFATE 220 MG CAPSULE GT SCH (08:23)
[2016-08-07] MEDS: PSYLLIUM SEED 1 PKT PACKET GT SCH ×2 (08:23→15:39)
[2016-08-07] MEDS: ASCORBIC ACID 500 MG TABLET GT SCH (08:23)
[2016-08-07] MEDS: SEVELAMER CARBONATE 0.8 GM POWD.PACK GT SCH ×2 (08:23→15:40)
[2016-08-07] MEDS: GABAPENTIN 300 MG CAPSULE GT SCH ×3 (08:23→15:40)
[2016-08-07] MEDS: MIDODRINE HCL (5MG) 5 MG TABLET GT SCH ×2 (08:23→15:40)
[2016-08-07] MEDS: SODIUM BICARBONATE 650 MG TABLET GT SCH ×2 (08:23→15:40)
[2016-08-07] MEDS: VIT B CMPLX 3/FA/VIT C/BIOTIN 1 TAB TABLET GT SCH (08:23)
[2016-08-07] MEDS: HYDROGEL DRESSING 90 GM TUBE TP SCH (08:24)
[2016-08-07] MEDS: CLOTRIMAZOLE 1% 15 GM TUBE TP SCH ×2 (08:24→16:37)
[2016-08-07] MEDS: Z GUARD REMEDY 2 OZ OINT TP SCH ×2 (08:24→16:37)
[2016-08-07 08:57] LABS: ANISOCYTOSIS 2+; LYMPHOCYTES % (MANUAL) 3 % (16-48); MONOCYTES % (MANUAL) 10 % (0-11.0); NEUTROPHILS % (MANUAL) 87 (42-76); PLATELET ESTIMATE GIANT PLATELET SEEN
[2016-08-07] MEDS ORDERED: ASCORBIC ACID SYRUP 500 MG/5 ML UDC GT SCH (09:00)
--- NOTE | 2016-08-07 09:15 | NUR ---
RN NOTES PT RETURNED FROM OR, PT VVS, PT IS ABLE TO MAKE NEEDS KNOWN, ALL ORDERS ACK
--- NOTE | 2016-08-07 12:00 | NUR ---
MS1/INDUSTRIAL FURNACE FABRICATOR OF CARE RECEIVED REPORT FROM NURSE GONZALES, ENDORSED PT TO CONTINUE CARE. ON GOING MONITORING.
--- NOTE | 2016-08-07 15:00 | NUR ---
MS1/RN OUTPUT - BLACK FLUID PT NOTED WITH BLACK FLUID IN COLOSTOMY BAG WELL IN GT SITE.
[2016-08-07 16:00] VITALS: BP 113/67
--- NOTE | 2016-08-07 16:34 | NUR ---
MS1/RN ROUNDS - DR. PATEL FOLLOW-UP WITH DR. PATEL ON PLAN WITH PT. PER MD CONTINUE HOLDING FEEDING, ON NPO STATUS.
[2016-08-07] MEDS ORDERED: DEXTROSE 50%-WATER 50 ML DISP.SYRIN IV PRN ×2 (18:00)
[2016-08-07] MEDS ORDERED: IV D5/0.45 NACL 1,000 ML IV ONE (18:00)
--- NOTE | 2016-08-07 18:00 | NUR ---
MS1/RN BLOOD GLUCOSE BLOOD GLUCOSE CHECKED, RESULT 45, RECHECKED, 54. ORDERED STAT LAB RANDOM BLOOD GLUCOSE. NOTIFIED DR. POSEY RECEIVED ORDER TO START PT ON D5 04/13 NS @ 40CC/HR. ORDER NOTED AND CARRIED. ALSO ORDERED REPEAT BLOOD GLUCOSE @ 1999.
[2016-08-07] MEDS ORDERED: IV SET PRIMARY PUMP SET 1 EA INFUS.SET MC ONE ×2 (18:01→18:02)
[2016-08-07] MEDS: IV D5/0.45 NACL 1,000 ML IV PRN (18:13)
--- NOTE | 2016-08-07 19:38 | NUR ---
MS1/RN AM SHIFT END NOTES ALL NEEDS MET. PT'S BLOOD GLUCOSE TO RECHECK BY LAB @ 1999. STILL ON NPO STATUS. ENDORSED TO PM NURSE TO CONTINUE CARE. CL WITHIN REACHED AND SAFETY MAINTAINED.
[2016-08-07 20:00] VITALS: BP_SYST 105; BP_SYST 135; BP_DIAS 53; BP_DIAS 66
--- NOTE | 2016-08-07 20:00 | NUR ---
MS RN NOTES RECEIVED PTS ON BED AWAKE ALERT AND VERBALLY RESPONSIVE, ON T- PIECE NO SOB NO DISTRESS NOTED DENIES PAIN AT THIS TIME . WITH IVF OF D5 1/2 NS AT 40CC/HR WELL TOLERATED COLOSTOMY INTACT AND PATENT STILL NOTED WITH BLACK LIQUID OUTPUT , WITH SUPRAPUBIC CATHETER INTACT AND PATENT DRAINING WITH YELLOWISH URINE OUTPUT . PTS REMAINS NPO , ALL NEEDS ATTENDED TOO CALL LIGHT WITHIN REACH , KEPT PTS CLEAN DRY AND COMFORTABLE .
[2016-08-07] MEDS: INSULIN REGULAR, HUMAN 100 UNIT/ML 3 ML VIAL SQ PRN (23:46)
[2016-08-08] VITALS: BP 112/73
--- NOTE | 2016-08-08 | NUR ---
MS RN NOTES BLOOD SUGAR FOR 12MN IS 63 , PTS ON IV FLUIDS OF D5 1/2 NS AT 40C/HR WELL TOLERATED ,WILL CHECK BLOOD SUGAR AGAIN IN AM
[2016-08-08 04:00] VITALS: BP 109/69
[2016-08-08] MEDS: BLOOD SUGAR DIAGNOSTIC 1 EACH STRIP IN SCH ×3 (05:35→17:36)
[2016-08-08] MEDS: METOCLOPRAMIDE HCL 10 MG/10 ML UDC GT SCH ×3 (05:35→17:25)
[2016-08-08] MEDS: INSULIN REGULAR, HUMAN 100 UNIT/ML 3 ML VIAL SQ PRN (05:35)
--- NOTE | 2016-08-08 05:56 | NUR ---
MS RN NOTES BLOOD SUGAR FOR 6AM IS 78- NO INSULIN COVERAGE GIVEN PER SLIDING SCALE PTS ON NPO STATUS, PTS REMAINS ON IV FLUIDS.
--- NOTE | 2016-08-08 07:12 | NUR ---
MS RN NOTES PTS REMAINS NPO STATUS ON T PIECE , NO SIGNIFICANT CHANGE NOTED , WILL ENDORSE TO RN DAY SHIFT FOR CONTINUITY OF CARE.
--- NOTE | 2016-08-08 07:20 | NUR ---
RN INITIAL NOTES: Rec'd pt asleep on bed, A/O x2 w/ periods of confusion, not in any distress. Pt on T-piece: trach (Portex 7), FiO2 28%, saturating at 100%. Pt has colostomy bag intact w/ black output noted. Has suprapubic catheter in place patent & intact. Pt has GT clamped. Has R jugular HD cath intact. Has LFA G16 PL patent & intact w/ D5 1/2 NS x 40 cc/hr infusing well. Provided comfort & safety measures. Call light placed w/in reach. Bed kept low & in locked position. Will turn, reposition & offload heels as per protocol. Will continue to monitor.
[2016-08-08] MEDS: PANTOPRAZOLE 40 MG TABLET.DR PO SCH (07:30)
[2016-08-08 08:00] VITALS: BP 133/76
[2016-08-08] MEDS: GABAPENTIN 300 MG CAPSULE GT SCH ×3 (09:00→17:25)
[2016-08-08] MEDS: ZINC SULFATE 220 MG CAPSULE GT SCH (09:00)
[2016-08-08] MEDS: PSYLLIUM SEED 1 PKT PACKET GT SCH ×2 (09:00→17:25)
[2016-08-08] MEDS: MIDODRINE HCL (5MG) 5 MG TABLET GT SCH ×2 (09:00→17:00)
[2016-08-08] MEDS: SEVELAMER CARBONATE 0.8 GM POWD.PACK GT SCH ×2 (09:00→17:25)
[2016-08-08] MEDS: ASCORBIC ACID 500 MG TABLET GT SCH (09:00)
[2016-08-08] MEDS: SODIUM BICARBONATE 650 MG TABLET GT SCH ×2 (09:00→17:34)
[2016-08-08] MEDS: VIT B CMPLX 3/FA/VIT C/BIOTIN 1 TAB TABLET GT SCH (09:00)
[2016-08-08] MEDS: Z GUARD REMEDY 2 OZ OINT TP SCH ×2 (09:31→17:26)
[2016-08-08] MEDS: HYDROGEL DRESSING 90 GM TUBE TP SCH (09:31)
[2016-08-08] MEDS: CLOTRIMAZOLE 1% 15 GM TUBE TP SCH ×2 (09:32→17:27)
[2016-08-08] MEDS: OLOPATADINE HCL 0.1% OPHTH BOTTLE EACHEYE SCH ×2 (09:32→17:28)
--- NOTE | 2016-08-08 10:00 | NUR ---
pt calling out loudly...requesting sleeper...
--- NOTE | 2016-08-08 13:00 | NUR ---
RN NOTES: Pt seen & examined by Dr. Wilkins w/ orders & carried out.
--- NOTE | 2016-08-08 13:00 | NUR ---
RN NOTES: As per Dr. Wilkins, NPO except meds. Follow up to GI regarding feeding. If pt, starts eating, can DC IVF.
[2016-08-08 16:00] VITALS: BP 133/80
[2016-08-08] MEDS: IV D5/0.45 NACL 1,000 ML IV PRN (17:34)
--- NOTE | 2016-08-08 18:54 | NUR ---
RN CLOSING NOTES: No acute changes noted w/in shift. Pt tolerated T-piece setting, saturating at 100%. Colostomy bag changed still w/ black tarry stool noted. Suprapubic catheter kept patent & intact, clamped for urine sample. PEG kept patent & intact, started on giving meds as ordered. R jugular HD cath kept in place & intact. LFA G16 PL kept patent & intact w/ D5 1/2 NS x 40 cc/hr infusing well. Kept rested & warm. Call light placed w/in reach. Bed kept low & in locked position. Wound care done. Turned, repositioned & offloaded heels. Will endorse to PM RN for CLAUDIA.
[2016-08-08 20:00] VITALS: BP 105/70
--- NOTE | 2016-08-08 20:30 | NUR ---
sponge bath given...new ostomy bag applied...approx 40 cc dark liquidy stool noted....new dressing applied to peg supra pubic catheter site and peg tube insertion site. pt asking for sleeper et this nurse wanted to see if non medicinal interventions will calm. pt repositioned for comfort at this time and new mepilex applied to red yet blanchable buttock...call light w/i reach
--- NOTE | 2016-08-08 23:29 | NUR ---
PATIENT REQUESTED FOR SLEEPING MEDICATION, INFORMED MD WITH NNO.
[2016-08-09] VITALS: BP 123/77
[2016-08-09 04:00] VITALS: BP 130/81
[2016-08-09] MEDS: METOCLOPRAMIDE HCL 10 MG/10 ML UDC GT SCH ×5 (06:00→23:18)
[2016-08-09] MEDS: BLOOD SUGAR DIAGNOSTIC 1 EACH STRIP IN SCH ×5 (07:00→23:18)
[2016-08-09 07:01] LABS: BASOPHILS % (AUTO) 0.6 % (0.0-2.0); EOSINOPHILS # (AUTO) 0.3 /CMM (0.0-0.7); EOSINOPHILS % (AUTO) 3.9 % (0.0-6.0); HEMATOCRIT 34 % (39-51); HEMOGLOBIN 10.5 g/dL (13.5-17.5); LYMPHOCYTES # (AUTO) 0.7 /CMM (0.8-4.8); LYMPHOCYTES % (AUTO) 8.5 % (20.0-44.0); MEAN CORPUSCULAR HEMOGLOBIN 32 PG (26.0-33.0); MEAN CORPUSCULAR HGB CONC 31 g/dl (31.0-36.0); MEAN CORPUSCULAR VOLUME 103 fL (80-96); MONOCYTES # (AUTO) 1.3 /CMM (0.1-1.30); MONOCYTES % (AUTO) 15.7 % (2.0-12.0); NEUTROPHILS # (AUTO) 5.7 /CMM (1.8-8.9); NEUTROPHILS % (AUTO) 71.3 % (43.0-81.0); RDW COEFFICIENT OF VARIATION 16.8 (11.5-15.0); RED BLOOD CELL COUNT(AUTO) 3.31 MIL/uL (4.5-6.0); WHITE BLOOD COUNT (AUTO) 8.1 K/uL (4.3-11.0)
[2016-08-09 07:15] LABS: CALCIUM, SERUM 9.6 mg/dL (8.5-10.1); CREATININE 3.7 mg/dL (0.6-1.3); MAGNESIUM 2.1 mg/dL (1.8-2.4); PHOSPHORUS 5.7 mg/dL (2.5-4.9)
[2016-08-09 08:00] VITALS: BP 129/76
[2016-08-09 08:19] VITALS: BP 129/64
[2016-08-09 09:51] LABS: EOSINOPHILS % (MANUAL) 2 % (0-4); LYMPHOCYTES % (MANUAL) 4 % (16-48); MONOCYTES % (MANUAL) 12 % (0-11.0); NEUTROPHILS % (MANUAL) 82 (42-76)
[2016-08-09 09:52] LABS: ANISOCYTOSIS 1+; HYPOCHROMASIA 1+; STOMATOCYTES 1+
[2016-08-09 09:53] LABS: PLATELET ESTIMATE ADEQU
[2016-08-09] MEDS: SEVELAMER CARBONATE 0.8 GM POWD.PACK GT SCH ×2 (10:12→18:11)
[2016-08-09] MEDS: ZINC SULFATE 220 MG CAPSULE GT SCH (10:12)
[2016-08-09] MEDS: MIDODRINE HCL (5MG) 5 MG TABLET GT SCH ×2 (10:12→18:11)
[2016-08-09] MEDS: SODIUM BICARBONATE 650 MG TABLET GT SCH ×2 (10:14→18:11)
[2016-08-09] MEDS: PSYLLIUM SEED 1 PKT PACKET GT SCH ×2 (10:15→18:11)
[2016-08-09] MEDS: VIT B CMPLX 3/FA/VIT C/BIOTIN 1 TAB TABLET GT SCH (10:15)
[2016-08-09] MEDS: GABAPENTIN 300 MG CAPSULE GT SCH ×3 (10:15→18:11)
[2016-08-09] MEDS: ASCORBIC ACID 500 MG TABLET GT SCH (10:15)
[2016-08-09] MEDS: PANTOPRAZOLE 40 MG TABLET.DR PO SCH (10:15)
[2016-08-09] MEDS: OLOPATADINE HCL 0.1% OPHTH BOTTLE EACHEYE SCH ×2 (10:18→18:12)
[2016-08-09] MEDS: CLOTRIMAZOLE 1% 15 GM TUBE TP SCH ×2 (10:19→18:12)
[2016-08-09] MEDS: HYDROGEL DRESSING 90 GM TUBE TP SCH (10:19)
[2016-08-09] MEDS: Z GUARD REMEDY 2 OZ OINT TP SCH ×2 (10:20→18:12)
[2016-08-09] MEDS: RENAL NOVASOURCE 1,000 ML BOTTLE GT SCH (12:46)
[2016-08-09 13:55] LABS: PLATELET COUNT (AUTO) 294 /CMM (150-450)
[2016-08-09 16:00] VITALS: BP 127/74
--- NOTE | 2016-08-09 19:35 | NUR ---
MS RN INITIAL NOTE RECEIVED PT AWAKE AND ALERT RESTING IN BED. A/O X2 AND ABLE TO MAKE NEEDS KNOWN. T-PIECE PORTEX #7 AT 5L/MIN, SATING WELL. IV L INDEX FINGER #22G PATENT, INTACT AND FLUSHING WELL. GTUBE SITE CLEAN, INTACT AND FEEDING NOT WELL TOLERATED AND IT IS CLAMPED AT THIS TIME. RESIDUAL 150CC AT THIS TIME. WILL RECHECK AT A LATER TIME. ILEOSTOMY IN PLACE, CLEAN, DRY AND INTACT. SUPRAPUBIC CATHETER IN PLACE AND DRAINING BY GRAVITY. CALL LIGHT WITHIN EASY REACH AT ALL TIMES. WILL CONTINUE TO MONITOR.
[2016-08-09 20:00] VITALS: BP 124/70
[2016-08-10 04:00] VITALS: BP 121/73
[2016-08-10] MEDS: METOCLOPRAMIDE HCL 10 MG/10 ML UDC GT SCH ×4 (05:02→23:25)
[2016-08-10] MEDS: BLOOD SUGAR DIAGNOSTIC 1 EACH STRIP IN SCH ×4 (05:03→23:25)
[2016-08-10] MEDS: RENAL NOVASOURCE 1,000 ML BOTTLE GT SCH (05:11)
[2016-08-10] MEDS: IV D5/0.45 NACL 1,000 ML IV PRN (05:20)
[2016-08-10 07:02] LABS: BASOPHILS # (AUTO) 0.1 /CMM (0.0-0.2); LYMPHOCYTES # (AUTO) 0.7 /CMM (0.8-4.8); MONOCYTES % (AUTO) 12.7 % (2.0-12.0); RED BLOOD CELL COUNT(AUTO) 3.33 MIL/uL (4.5-6.0)
[2016-08-10 07:03] LABS: BASOPHILS % (AUTO) 0.4 % (0.0-2.0); EOSINOPHILS # (AUTO) 0.5 /CMM (0.0-0.7); EOSINOPHILS % (AUTO) 3.9 % (0.0-6.0); HEMATOCRIT 34 % (39-51); HEMOGLOBIN 10.5 g/dL (13.5-17.5); LYMPHOCYTES % (AUTO) 5.4 % (20.0-44.0); MEAN CORPUSCULAR HEMOGLOBIN 32 PG (26.0-33.0); MEAN CORPUSCULAR HGB CONC 31 g/dl (31.0-36.0); MEAN CORPUSCULAR VOLUME 103 fL (80-96); MONOCYTES # (AUTO) 1.5 /CMM (0.1-1.30); NEUTROPHILS # (AUTO) 9.5 /CMM (1.8-8.9); NEUTROPHILS % (AUTO) 77.6 % (43.0-81.0); PLATELET COUNT (AUTO) 300 /CMM (150-450); RDW COEFFICIENT OF VARIATION 16.1 (11.5-15.0); WHITE BLOOD COUNT (AUTO) 12.2 K/uL (4.3-11.0)
[2016-08-10 07:14] LABS: CALCIUM, SERUM 9.9 mg/dL (8.5-10.1); CREATININE 4.9 mg/dL (0.6-1.3); MAGNESIUM 2.2 mg/dL (1.8-2.4); PHOSPHORUS 6.1 mg/dL (2.5-4.9); POTASSIUM 4.5 mmol/L (3.5-5.1)
--- NOTE | 2016-08-10 07:20 | NUR ---
MS RN CLOSING NOTE PT REMAINED STABLE DURING SHIFT. ALL NEEDS ATTENDED TO PROMPTLY. CALL LIGHT WITHIN REACH AT ALL TIMES. WILL ENDORSE TO NEXT SHIFT FOR CLAUDIA.
[2016-08-10 08:00] VITALS: BP 123/74
[2016-08-10] MEDS: ZINC SULFATE 220 MG CAPSULE GT SCH (08:51)
[2016-08-10] MEDS: ASCORBIC ACID 500 MG TABLET GT SCH (08:51)
[2016-08-10] MEDS: GABAPENTIN 300 MG CAPSULE GT SCH ×3 (08:51→16:58)
[2016-08-10] MEDS: MIDODRINE HCL (5MG) 5 MG TABLET GT SCH ×2 (08:52→16:59)
[2016-08-10] MEDS: PANTOPRAZOLE 40 MG TABLET.DR PO SCH (08:52)
[2016-08-10] MEDS: PSYLLIUM SEED 1 PKT PACKET GT SCH ×2 (08:53→16:59)
[2016-08-10] MEDS: SEVELAMER CARBONATE 0.8 GM POWD.PACK GT SCH ×2 (08:53→17:00)
[2016-08-10] MEDS: HYDROGEL DRESSING 90 GM TUBE TP SCH (08:54)
[2016-08-10] MEDS: CLOTRIMAZOLE 1% 15 GM TUBE TP SCH ×2 (08:54→17:01)
[2016-08-10] MEDS: Z GUARD REMEDY 2 OZ OINT TP SCH ×2 (08:54→17:01)
[2016-08-10] MEDS: SODIUM BICARBONATE 650 MG TABLET GT SCH ×2 (08:56→17:00)
[2016-08-10] MEDS: VIT B CMPLX 3/FA/VIT C/BIOTIN 1 TAB TABLET GT SCH (09:00)
[2016-08-10] MEDS: OLOPATADINE HCL 0.1% OPHTH BOTTLE EACHEYE SCH ×2 (09:01→17:00)
[2016-08-10] MEDS ORDERED: EPOETIN ALFA (10,000 UNIT) 10,000 UNIT/ML VIAL SQ ONE (10:30)
[2016-08-10 12:00] VITALS: BP 124/68
[2016-08-10 16:00] VITALS: BP 136/82
--- NOTE | 2016-08-10 18:21 | NUR ---
FINA/RN: notes Patient reassessed per [employer] protocol (q4 hr), no acute change noted from initial shift assessment, please see completed data in flowsheets. Adequate oxygenation T-Poece, no s/s of resp distress noted, patient denies pain, no shortness of breath noted, vss, GT feeding tolerated well, no residual noted, HOB elevated all the time. patient turned and positioned q2h and prn. ileostomy bag changed. urine output 50 ml. HD done today with total output 1,000 ml. Will continue to monitor closely and intervene as appropriate.
--- NOTE | 2016-08-10 19:35 | NUR ---
MS RN INITIAL NOTE PT A/O X2 AND ABLE TO MAKE NEEDS KNOWN. T-PIECE ON 5L/MIN AND TOLERATING WELL. SUPRAPUBIC CATHETER PATENT AND DRAINING WELL. ILEOSTOMY CLEAN AND INTACT. IV R HAND #22 CLEAN AND PATENT WITH FLUIDS RUNNING AND WELL TOLERATED. ALL SAFETY MEASURES IN PLACE. WILL CONTINUE TO MONITOR.
[2016-08-10 20:00] VITALS: BP 141/82
[2016-08-11 04:00] VITALS: BP 144/90
[2016-08-11] MEDS: METOCLOPRAMIDE HCL 10 MG/10 ML UDC GT SCH ×3 (05:24→17:40)
[2016-08-11] MEDS: BLOOD SUGAR DIAGNOSTIC 1 EACH STRIP IN SCH ×3 (05:24→17:39)
[2016-08-11] MEDS: RENAL NOVASOURCE 1,000 ML BOTTLE GT SCH (05:24)
--- NOTE | 2016-08-11 06:47 | NUR ---
MS RN CLOSING NOTE PT REMAINED STABLE DURING SHIFT. ALL NEEDS ATTENDED TO PROMPTLY. ALL SAFETY MEASURES IN PLACE. FEEDING HELD D/O RESIDUAL BEING 150 ML. WILL ENDORSE TO NEXT SHIFT FOR CLAUDIA.
--- NOTE | 2016-08-11 07:52 | NUR ---
RN NOTES: PT RECEIVED IN STABLE CONDITION ASLEEP, EASILY AROUSAL. RESPONSIVE TO VERBAL & TACTILE STIMULI. ABLE TO MAKE NEEDS KNOWN. ON T-PIECE AT 5LPM, BREATHING PATTERN REGULAR & UNLABORED. SAFETY PRECAUTIONS OBSERVED. ON ASPIRATION PRECAUTIONS. RECEIVED G-TUBE ON HOLD DUE RESIDUAL > 100CC. WILL CONTINUE TO MONITOR. IV SITE INTACT, RUNNING WITH IV FLUIDS ORDERED BY MD. SUPRAPUBIC CATH INTACT DRAINING WELL WITH YELLOWISH URINE. ILEOSTOMY BAG INTACT & SITE CLEAN & DRY. CALL LIGHT WITHIN REACH. PT DRY & CLEAN. WILL CONTINUE TO MONITOR.
[2016-08-11 08:00] VITALS: BP 127/77
[2016-08-11] MEDS ORDERED: PANT40TA2 PO (08:13)
[2016-08-11] MEDS ORDERED: ALLA266C2 TP (08:13)
[2016-08-11] MEDS: MIDODRINE HCL (5MG) 5 MG TABLET GT SCH ×2 (08:48→17:41)
[2016-08-11] MEDS: SEVELAMER CARBONATE 0.8 GM POWD.PACK GT SCH ×2 (08:48→17:40)
[2016-08-11] MEDS: ASCORBIC ACID 500 MG TABLET GT SCH (08:50)
[2016-08-11] MEDS: ZINC SULFATE 220 MG CAPSULE GT SCH (08:50)
[2016-08-11] MEDS: GABAPENTIN 300 MG CAPSULE GT SCH ×3 (08:50→17:41)
[2016-08-11] MEDS: VIT B CMPLX 3/FA/VIT C/BIOTIN 1 TAB TABLET GT SCH (08:50)
[2016-08-11] MEDS: PANTOPRAZOLE 40 MG TABLET.DR PO SCH (08:50)
[2016-08-11] MEDS: SODIUM BICARBONATE 650 MG TABLET GT SCH ×2 (08:50→17:40)
[2016-08-11] MEDS: PSYLLIUM SEED 1 PKT PACKET GT SCH ×2 (08:50→17:41)
[2016-08-11] MEDS: OLOPATADINE HCL 0.1% OPHTH BOTTLE EACHEYE SCH ×2 (08:50→17:40)
[2016-08-11] MEDS: HYDROGEL DRESSING 90 GM TUBE TP SCH (08:51)
[2016-08-11] MEDS: CLOTRIMAZOLE 1% 15 GM TUBE TP SCH ×2 (08:52→17:41)
[2016-08-11] MEDS: Z GUARD REMEDY 2 OZ OINT TP SCH ×2 (08:52→17:41)
--- NOTE | 2016-08-11 10:44 | NUR ---
RN NOTES: PNA VACCINE INFORMATION GIVEN TO THE PATIENT REGARDING PNA VACCINE. PT STATES THAT HE WILL TALK TO HIS SISTER. & MAY BE HE CAN HAVE AT FACILITY WHERE HE IS GOING TO BE DISCHARGE. PT UNDERSTAND R/B REGARDING PNA VACCINE.
[2016-08-11] MEDS ORDERED: IV SET PRIMARY PUMP SET 1 EA INFUS.SET MC ONE (13:36)
[2016-08-11] MEDS: IV D5/0.45 NACL 1,000 ML IV PRN (13:58)
[2016-08-11 16:00] VITALS: BP 126/78
[2016-08-11 17:41] VITALS: BP 126/78
--- NOTE | 2016-08-11 19:00 | NUR ---
RN NOTES: PT DISCHARGE TO [facility] IN STABLE CONDITION. REPORT GIVEN TO TRINI MICHELLE. ACCOMPANIED BY 2 EXECUTIVE CHAIRMAN OF THE BOARD, 1 RT. DISCHARGE INTSRUCTIONS GIVEN TO THE PATIENT. VERBALIZE TO UNDERSTAND. DISCHARGEE PACKAGE GIVEN TO EMT.
== END 2016-08-11 19:10 | DRG 380 ==
LOC: ER 04:03 → TELE1 05:11 → TELE-TD 18:59 → MEDSG1 08-07 09:11
PROVIDERS: ADMIT Internal Medicine; ATTEND Internal Medicine Nephrology
PROC: 5A1D60Z (ICD-10-PCS; 2016-08-06)
PROC: 0DB68ZX Excision of Stomach, Via Natural or Artificial Opening Endoscopic, Diagnostic (ICD-10-PCS; 2016-08-07)
PROC: 0DB58ZX Excision of Esophagus, Via Natural or Artificial Opening Endoscopic, Diagnostic (ICD-10-PCS; principal; 2016-08-07 08:00)
DX: K22.11 Ulcer of esophagus with bleeding (principal); N18.6 End stage renal disease; G82.20 Paraplegia, unspecified; J96.11 Chronic respiratory failure with hypoxia; Z99.11 Dependence on respirator [ventilator] status; I13.11 Hypertensive heart and chronic kidney disease without heart failure, with stage 5 chronic kidney disease, or end stage renal disease; J84.9 Interstitial pulmonary disease, unspecified; Z99.2 Dependence on renal dialysis; Q05.9 Spina bifida, unspecified; R74.8 Abnormal levels of other serum enzymes; E11.22 Type 2 diabetes mellitus with diabetic chronic kidney disease; E87.5 Hyperkalemia; K29.61 Other gastritis with bleeding; M41.9 Scoliosis, unspecified; R13.10 Dysphagia, unspecified; Z87.891 Personal history of nicotine dependence
CPT/HCPCS: 31720; 36415; 71010-TC; 80048-TC; 80076-TC; 82945-TC; 82947-TC; 82962-TC; 83540-TC; 83690-TC; 83735-TC; 84100-TC; 84484-TC; 85025-TC; 85730-TC; 86850-TC; 87040-TC; 87081-TC; 88305-TC; 88313-TC; 88342; 90935-TC; 92611-TC; 94640-TC; 94664-TC; A4606; A6248; A6253; A6402; A6403; C9113; J0885; J1815; J2405; J2704; J3490; J7030; J7040; J8597; L8501; Z7610

== ENCOUNTER 2016-08-24 15:47 | Inpatient (IN) | payer MEDICARE, MEDICAID ==
[~2016-08-24] VITALS: Ht 165.1 cm; Wt 53.1 kg
[~2016-08-24 15:47] MED LIST changes: +ALLA266C2 TP; +ASCO500S2 GT; -ASCO500T9 GT; +BLOO-668 IN; +EPOE1VIA4 SQ; -FOLI0.8T2 GT; +HEPA50008 SQ; -HYDR-4076 PO; -INSU100I14 SQ; +INSU100V27 SQ; -LANS15CA5 GT; -METO75TA GT; +MIDO10TA GT; +OLOP5DRO EACHEYE; +PANT40TA2 PO; -PREG25CA GT; +PSYL1PAC8 GT; +SEVE800T8 GT; +SODI650T GT; +VIT1TABL44 GT
--- NOTE | 2016-08-24 15:52 | NUR ---
PT [facility]DRA [facility]ASSAN [facility] FOR LOW BP. PLACED ON MONITOR. VSS. AWAITING MD ORDER
--- NOTE | 2016-08-24 16:00 | NUR ---
AT BEDSIDE FOR EVAL
--- NOTE | 2016-08-24 16:10 | NUR ---
SITA #[id number] IV ACCESS. BLOOD SAMPLE COLLECTED SENT TO LAB
--- NOTE | 2016-08-24 16:15 | NUR ---
URINE SAMPLE COLLECTED SENT TO LAB
[2016-08-24 16:19] LABS: BASOPHILS # (AUTO) 0.1 /CMM (0.0-0.2); BASOPHILS % (AUTO) 0.6 % (0.0-2.0); EOSINOPHILS # (AUTO) 0.5 /CMM (0.0-0.7); EOSINOPHILS % (AUTO) 3.3 % (0.0-6.0); HEMATOCRIT 42 % (39-51); HEMOGLOBIN 13.8 g/dL (13.5-17.5); LYMPHOCYTES # (AUTO) 0.9 /CMM (0.8-4.8); LYMPHOCYTES % (AUTO) 6.1 % (20.0-44.0); MEAN CORPUSCULAR HEMOGLOBIN 35 PG (26.0-33.0); MEAN CORPUSCULAR HGB CONC 33 g/dl (31.0-36.0); MEAN CORPUSCULAR VOLUME 105 fL (80-96); MONOCYTES # (AUTO) 1.7 /CMM (0.1-1.30); MONOCYTES % (AUTO) 11.2 % (2.0-12.0); NEUTROPHILS # (AUTO) 12.1 /CMM (1.8-8.9); NEUTROPHILS % (AUTO) 78.8 % (43.0-81.0); PLATELET COUNT (AUTO) 291 /CMM (150-450); RDW COEFFICIENT OF VARIATION 17.4 (11.5-15.0); RED BLOOD CELL COUNT(AUTO) 3.99 MIL/uL (4.5-6.0); WHITE BLOOD COUNT (AUTO) 15.3 K/uL (4.3-11.0)
--- NOTE | 2016-08-24 16:31 | NUR ---
HAND REAMER AT BEDSIDE
[2016-08-24 16:32] LABS: CALCIUM, SERUM 9.5 mg/dL (8.5-10.1); CARBON DIOXIDE 27 mmol/L (21-32); CHLORIDE 98 mmol/L (98-107); CREATININE 2.7 mg/dL (0.6-1.3); GFR 24 mL/min (>60); GLUCOSE 91 mg/dL (74-106); POTASSIUM 4.1 mmol/L (3.5-5.1); SODIUM SERUM 135 mmol/L (136-145); UREA NITROGEN, BLOOD 35 mg/dL (7-18)
[2016-08-24 16:34] LABS: LEUKOCYTE ESTERASE ,URINE 3+ (NEGATIVE); NITRITE, URINE NEGATIVE (NEGATIVE); PROTEIN,URINE 4+ mg/dl (NEGATIVE); UROBILINOGEN,URINE 0.2 EU/dL (0.2)
[2016-08-24 16:35] LABS: BLOOD, URINE 3+ Ery/uL (NEGATIVE); PH,URINE 8.5 (5.0-8.0)
[2016-08-24 16:36] LABS: APPEARANCE,URINE TURBID (CLEAR); BILIRUBIN,URINE 2 (NEGATIVE); COLOR,URINE YELLOW (YELLOW); KETONES,URINE NEGATIVE (NEGATIVE); UGLUCOSE NEGATIVE (NEGATIVE)
[2016-08-24 16:36] LABS: ALANINE AMINOTRANSFERASE 77 U/L (12-78); ALBUMIN 3.8 g/dL (3.4-5.0); ALKALINE PHOSPHATASE 741 U/L (46-116); ASPARTATE AMINOTRANSFERASE 52 U/L (15-37); BILIRUBIN,DIRECT 0.1 mg/dL (0.0-0.2); BILIRUBIN,TOTAL 0.4 mg/dL (0.2-1.0); TOTAL PROTEIN, SERUM 9.6 g/dL (6.4-8.2)
[2016-08-24 16:38] LABS: TROPONIN I < 0.017 ng/mL (0.00-0.056)
[2016-08-24 16:44] LABS: ADD URINE CULTURE YES; BACTERIA,URINE Rare /HPF (None Seen); SQUAMOUS EPITHELIAL CELL,UR Few /HPF (None Seen); WBC,URINE TOO NUMEROUS TO COUN /HPF (0-3)
[2016-08-24 17:02] LABS: LACTIC ACID 1.5 mmol/L (0.4-2.0)
[2016-08-24] MEDS ORDERED: MEROPENEM 1,000 MG in IV NS 0.9% 100 ML IV ONE (17:30)
[2016-08-24 17:33] LABS: INR 0.97 (0.87-1.13); PROTHROMBIN TIME 10.4 SECS (9.5-12.7)
[2016-08-24 17:35] LABS: PARTIAL THROMBOPLASTIN TIME > 170 SEC (23-34)
[2016-08-24] MEDS ORDERED: IV SET PRIMARY PUMP SET 1 EA INFUS.SET MC ONE ×2 (17:37→18:38)
--- NOTE | 2016-08-24 18:15 | NUR ---
GAVE REPORT TO MAINE MICHELLE 114-1 TELE PT DX UTI, RENAL FAILURE. DR LES DESAI. TRANSFER VIA ACLS PROTOCOL .
[2016-08-24] MEDS ORDERED: PREG25CA GT (18:25)
[2016-08-24] MEDS ORDERED: METO75TA PO (18:25)
[2016-08-24] MEDS ORDERED: PANT40SU GT (18:25)
[2016-08-24] MEDS ORDERED: ONDA4TAB5 GT (18:25)
[2016-08-24 18:30] VITALS: BP 83/50
[2016-08-24] MEDS: IV D5/ 0.9% NACL 1,000 ML IV PRN (18:43)
--- NOTE | 2016-08-24 18:45 | NUR ---
RN NOTES PT ON BED, AOX3, DENIES PAIN, NO FEVER, LOW BP NOTED, 83/50, ON T PIECE, NO SOB, PEG TUBE CLAMPED, ILEOSTOMY BAG INTACT, EMPTIED, SUPRAPUBIC CATHETER IN PLACE, DRAINING TEA COLOR URINE, MULTIPLE SKIN ISSUES, PT CLEANED, PICTURES TAKEN. WILL ENDORSE TO TRAFFIC TECHNICIAN NURSE FOR CLAUDIA.
[2016-08-24] MEDS ORDERED: INSULIN LISPRO/ASPART 100 UNIT/ML CARTRIDGE SQ SCH (19:30)
[2016-08-24] MEDS ORDERED: RENAL NOVASOURCE 1,000 ML BOTTLE GT PRN (19:30)
[2016-08-24] MEDS ORDERED: IPRATROPIUM NEB FS 0.5 MG/2.5 ML AMPUL.NEB NEB PRN (19:30)
[2016-08-24] MEDS ORDERED: ALBUTEROL FS 2.5 MG/3 ML VIAL.NEB NEB PRN (19:30)
[2016-08-24] MEDS ORDERED: ONDANSETRON 4 MG TAB.RAPDIS GT PRN (19:30)
[2016-08-24 20:00] VITALS: BP 89/51
[2016-08-24] MEDS ORDERED: DEXTROSE 50%-WATER 50 ML DISP.SYRIN IV PRN ×2 (20:00)
[2016-08-24] MEDS ORDERED: INSULIN ASPART NOVOLOG 100 UNIT/ML CARTRIDGE SQ PRN (20:00)
--- NOTE | 2016-08-24 20:00 | NUR ---
RN INITIAL NOTE; PT ON THE BED AWAKE WITHOUT ANY DISTRESS , A/O X 2-3 WITH PERIODS OF CONFUSION. BREATHING EVEN AND UNLABORED ON COOL AEROSOL. TELE MONITOR SHOWING SR HR 67 . RCW HD CATH INTACT , RH 18G PERIPHERAL IV INTACT AND PATENT WITH CONTINUE IVF NS @ 75 ML/HR. PEG TUBE INTACT AND PATENT WITH CONTINUE NOVASOURCE AT 40ML/HR . ILEOSTOMY INTACT AND DRAINING. SUPRA PUBIC CATHETER INTACT AND NO OUTPUT AT THIS TIME . BED IN THE LOWEST/LOCKED POSITION. SAFETY MEASURES APPLIED. WILL TURN AND REPOSITION Q2H AND NEEDED . WILL CONTINUE TO MONITOR .
[2016-08-24] MEDS ORDERED: SECONDARY IV SET 1 EA INFUS.SET MC ONE (20:21)
[2016-08-24] MEDS: PREGABALIN 25 MG CAPSULE GT SCH (20:31)
[2016-08-24] MEDS: GABAPENTIN 300 MG CAPSULE GT SCH (20:31)
[2016-08-24] MEDS: VIT B CMPLX 3/FA/VIT C/BIOTIN 1 TAB TABLET GT SCH (20:31)
[2016-08-24] MEDS: PANTOPRAZOLE 40 MG/PACK PACK GT SCH (20:32)
[2016-08-24] MEDS: ASCORBIC ACID 500 MG TABLET GT SCH (20:33)
[2016-08-24] MEDS: ZINC SULFATE 220 MG CAPSULE GT SCH (20:33)
[2016-08-24] MEDS: MEROPENEM 1 G in IV NS 0.9% 100 ML IV SCH (20:34)
[2016-08-24] MEDS: POLYVINYL ALCOHOL 15 ML BOTTLE EACHEYE SCH (20:34)
[2016-08-24] MEDS: RENAL NOVASOURCE 1,000 ML BOTTLE GT PRN (20:34)
[2016-08-24] MEDS: METOPROLOL TARTRATE 25 MG TABLET GT SCH (21:00)
[2016-08-24] MEDS ORDERED: BLOOD SUGAR DIAGNOSTIC 1 EACH STRIP IN SCH (22:00)
[2016-08-24] MEDS: METOCLOPRAMIDE HCL 10 MG TABLET GT SCH (23:20)
[2016-08-24] MEDS: BLOOD SUGAR DIAGNOSTIC 1 EACH STRIP IN SCH (23:28)
[2016-08-25] VITALS (8 sets, daily range): BP systolic 74–131; BP diastolic 45–90
[2016-08-25] MEDS: BLOOD SUGAR DIAGNOSTIC 1 EACH STRIP IN SCH ×4 (05:28→23:31)
[2016-08-25] MEDS: METOCLOPRAMIDE HCL 10 MG TABLET GT SCH ×4 (05:28→23:22)
[2016-08-25 06:55] LABS: BASOPHILS % (AUTO) 0.4 % (0.0-2.0); EOSINOPHILS # (AUTO) 0.6 /CMM (0.0-0.7); EOSINOPHILS % (AUTO) 5.8 % (0.0-6.0); HEMATOCRIT 38 % (39-51); HEMOGLOBIN 11.8 g/dL (13.5-17.5); LYMPHOCYTES # (AUTO) 0.6 /CMM (0.8-4.8); LYMPHOCYTES % (AUTO) 6.1 % (20.0-44.0); MEAN CORPUSCULAR HEMOGLOBIN 33 PG (26.0-33.0); MEAN CORPUSCULAR HGB CONC 31 g/dl (31.0-36.0); MEAN CORPUSCULAR VOLUME 105 fL (80-96); MONOCYTES # (AUTO) 1.8 /CMM (0.1-1.30); MONOCYTES % (AUTO) 18.9 % (2.0-12.0); NEUTROPHILS # (AUTO) 6.5 /CMM (1.8-8.9); NEUTROPHILS % (AUTO) 68.8 % (43.0-81.0); PLATELET COUNT (AUTO) 306 /CMM (150-450); RDW COEFFICIENT OF VARIATION 19.3 (11.5-15.0); WHITE BLOOD COUNT (AUTO) 9.5 K/uL (4.3-11.0)
--- NOTE | 2016-08-25 07:45 | NUR ---
RN EOS NOTE PT REMAINED STABLE DURING THE SHIFT. NO ANY DISTRESS NOTED. IV SITE INTACT AND PATENT , IVF AND G TUBE FEEDING TOLERATED WELL. ALL NEEDS ATTENDED PROMPTLY, PT REFUSED FOR BED BATH AT THIS TIME, WOUND DRESSING, ILEOSTOMY AND SUPRA PUBIC CATH CARE RENDERED. REPOSITIONED Q2H AND NEEDED .CALL LIGHT WITHIN REACH . ENDORSED TO NEXT SHIFT RN FOR CONTINUITY OF CARE.
[2016-08-25 07:53] LABS: CALCIUM, SERUM 9.5 mg/dL (8.5-10.1); CREATININE 3.8 mg/dL (0.6-1.3); POTASSIUM 5.8 mmol/L (3.5-5.1)
--- NOTE | 2016-08-25 08:00 | NUR ---
COILER OPERATOR NOTE PATENT IN BED ,ALL NEEDS ATTENDED,WITH GTUBE FEEDING ORDERED, KEEP HOB ELEVATED AT ALL TIME, ON TELE SR 71 ,RT CW HD CATH IN PLACE , RT HAND HL INTACT, ON IVF ORDERED, BED IN LOWEST AND LOCKED POSITION , WILL CONT TO MONITOR CLOSELY , WITH SUPRAPUBIC CATH IN PLACE WITH SOME YELLOW CLOUDY URINE NOTED, WITH TRACH TO COOLER AEROSOL 8L TO 35%, SAT 96% , ILEOSTOMY BAG IN PLACE NO , NOTED AT THIS TIME ,
[2016-08-25] MEDS: VIT B CMPLX 3/FA/VIT C/BIOTIN 1 TAB TABLET GT SCH (08:25)
[2016-08-25] MEDS: GABAPENTIN 300 MG CAPSULE GT SCH ×3 (08:25→16:16)
[2016-08-25] MEDS: PREGABALIN 25 MG CAPSULE GT SCH ×2 (08:25→16:16)
[2016-08-25] MEDS: MEROPENEM 1 G in IV NS 0.9% 100 ML IV SCH ×2 (08:25→19:41)
[2016-08-25] MEDS: ASCORBIC ACID 500 MG TABLET GT SCH ×2 (08:25→16:16)
[2016-08-25] MEDS: ZINC SULFATE 220 MG CAPSULE GT SCH (08:25)
[2016-08-25] MEDS: METOPROLOL TARTRATE 25 MG TABLET GT SCH ×2 (08:26→21:00)
[2016-08-25] MEDS: POLYVINYL ALCOHOL 15 ML BOTTLE EACHEYE SCH ×2 (08:26→16:17)
[2016-08-25] MEDS: PANTOPRAZOLE 40 MG/PACK PACK GT SCH (08:33)
[2016-08-25 10:01] LABS: EOSINOPHILS % (MANUAL) 6 % (0-4); LYMPHOCYTES % (MANUAL) 8 % (16-48); MONOCYTES % (MANUAL) 13 % (0-11.0); NEUTROPHILS % (MANUAL) 73 (42-76); PLATELET ESTIMATE ADEQUATE
[2016-08-25 10:02] LABS: ANISOCYTOSIS 2+
--- NOTE | 2016-08-25 10:37 | NUR ---
RETAIL SALES TEAMMATE NOTE SPOKE WITH DR SPRAGUE NOTIFIED THAT K 5.8 BUN 50 CREATINE 3.8 PATIENT ON HD , STATED THAT WILL CHECK IT OUT
[2016-08-25] MEDS: HEPARIN SODIUM, PORCINE 5000 UNITS/1 ML VIAL SQ SCH ×2 (11:37→23:22)
--- NOTE | 2016-08-25 14:30 | NUR ---
QUARRY SUPERVISOR DIMENSION STONE NOTE PER HD NURSE, PATENT WILL HAVE HD TODAY
[2016-08-25] MEDS: IV D5/ 0.9% NACL 1,000 ML IV PRN (14:33)
[2016-08-25] MEDS: ACETAMINOPHEN 650 MG/20.3 ML UDC GT PRN (14:33)
--- NOTE | 2016-08-25 17:26 | NUR ---
telegraph lineman note sacral redness and excoriation, wound care consult ordered
--- NOTE | 2016-08-25 17:27 | NUR ---
program director cable television note hold meds at this time ,on hd ,will monitor closely
[2016-08-25] MEDS: ALBUMIN 25% 25 GM in PREMIX 1 EA IV PRN ×2 (18:17→18:42)
--- NOTE | 2016-08-25 18:42 | NUR ---
public safety telecommunicator note on hd at this time .placed warm blanket feels cold
--- NOTE | 2016-08-25 19:15 | NUR ---
telephone information clerk note 1l of fluids is out from hd ,dr sheffield did not call yet endorsed to next shift evi clinton
--- NOTE | 2016-08-25 20:00 | NUR ---
LEARNING CENTER COORDINATOR NOTE PT IN BED SEMIFOWLER. A/O X 2 -3. NO SOB, NO DISTRESS OR DISCOMFORT NOTED. DENIES PAIN. PT ON TP PORTEX #7 O2 8 L COOL AEROSOL. O2 SAT 98%. IVF AT RT HAND #18 G D5NS INFUSING AT 55 ML/HR, NO S/S OF INFILTRATION NOTED. ILEOSTOMY INTACT AND PATENT DRAINING WELL. ON TELE S TECH HR 114. SUPRAPUBIC CATH INTACT AND PATENT VERY MINIMAL OUTPUT MUDDY BEIGE COLOR OUTPUT NOTED. RCW WITH HD CATH NOTED. HD FINISHED EARLIER WITH 1L OUTPUT PER HD NURSE. PT IS USING BEAR HUGGER DUE TO FEELING COLD. REPOSITION HIM FOR COMFORT AND SKIN MANAGEMENT. ALL NEEDS ATTENDED. KEPT HIM DRY AND CLEAN. SIDE RAILS UP X 3 AND CALL LIGHT WITHIN REACH. CONTINUE TO MONITOR HIM.
--- NOTE | 2016-08-25 22:00 | NUR ---
MAGAZINE JOURNALIST NOTE DR DAVIS CALLED AND INFORMED HIM PT BP IS LOW 83/42 AND HR IS HIGH 130. GAVE NEW ORDER TO GIVE BOLUS 250 NS NOW. ORDER NOTED AND CARRIED OUT. PT IN NO DISTRESS OR DISCOMFORT NOTED.
[2016-08-25] MEDS ORDERED: IV NS 0.9% 250 ML IV ONE ×2 (22:19→22:30)
[2016-08-25] MEDS ORDERED: SECONDARY IV SET 1 EA INFUS.SET MC ONE (22:20)
[2016-08-26] VITALS: BP 82/43
[2016-08-26 04:00] VITALS: BP_SYST 82; BP_SYST 84; BP_DIAS 47
[2016-08-26] MEDS: METOCLOPRAMIDE HCL 10 MG TABLET GT SCH ×3 (05:48→16:35)
[2016-08-26] MEDS: BLOOD SUGAR DIAGNOSTIC 1 EACH STRIP IN SCH ×3 (05:54→16:39)
--- NOTE | 2016-08-26 06:29 | NUR ---
HATCH SUPERVISOR NOTE PT IN BED ASLEEP, AROUSABLE NO DISTRESS OR DISCOMFORT NOTED. DENIES PAIN. GT FEEDING AND IVF INFUSING WELL. ON TELE SR HR 87. KEPT HIM DRY AND CLEAN. SUPRAPUBIC CATH INTACT AND PATENT, 0 ML OUTPUT. ILEOSTOMY INTACT AND PATENT DRAINING WELL 100ML STOOL OUT PUT NOTED. VSS. SIDE RAILS UP X 3 AND CALL LIGHT WITHIN REACH. WILL ENDORSE TO DAY SHIFT NURSE FOR CONTINUE TO CARE.
--- NOTE | 2016-08-26 06:57 | NUR ---
MACHINE DEICER ELEMENT WINDER NOTE B/P 91/59.
[2016-08-26 07:29] LABS: EOSINOPHILS % (AUTO) 0.3 % (0.0-6.0); HEMATOCRIT 37 % (39-51); HEMOGLOBIN 11.4 g/dL (13.5-17.5); LYMPHOCYTES # (AUTO) 0.2 /CMM (0.8-4.8); LYMPHOCYTES % (AUTO) 1.5 % (20.0-44.0); MEAN CORPUSCULAR HEMOGLOBIN 33 PG (26.0-33.0); MEAN CORPUSCULAR HGB CONC 31 g/dl (31.0-36.0); MEAN CORPUSCULAR VOLUME 106 fL (80-96); MONOCYTES # (AUTO) 1.1 /CMM (0.1-1.30); MONOCYTES % (AUTO) 7.9 % (2.0-12.0); NEUTROPHILS # (AUTO) 12.3 /CMM (1.8-8.9); NEUTROPHILS % (AUTO) 90.3 % (43.0-81.0); PLATELET COUNT (AUTO) 274 /CMM (150-450); RDW COEFFICIENT OF VARIATION 19.2 (11.5-15.0); RED BLOOD CELL COUNT(AUTO) 3.51 MIL/uL (4.5-6.0); WHITE BLOOD COUNT (AUTO) 13.6 K/uL (4.3-11.0)
[2016-08-26 07:52] LABS: BILIRUBIN,TOTAL 0.3 mg/dL (0.2-1.0); CALCIUM, SERUM 10.5 mg/dL (8.5-10.1); CREATININE 3.4 mg/dL (0.6-1.3); MAGNESIUM 2.2 mg/dL (1.8-2.4); PHOSPHORUS 4.2 mg/dL (2.5-4.9); POTASSIUM 4.2 mmol/L (3.5-5.1); TOTAL PROTEIN, SERUM 8.5 g/dL (6.4-8.2)
[2016-08-26 08:00] VITALS: BP 82/53
--- NOTE | 2016-08-26 08:00 | NUR ---
LOWER SCHOOL MUSIC TEACHER AM NOTES PT IN BED SEMI-DUPREE. A/O X 2 -3. NO SOB, NO DISTRESS OR DISCOMFORT NOTED. DENIES PAIN. PT ON TP PORTEX #7 O2 8 L COOL AEROSOL. O2 SAT 98%. IVF AT RT HAND #18 G D5NS INFUSING AT 55 ML/HR, NO S/S OF INFILTRATION NOTED. ILEOSTOMY LEAKING AND CHANGED-KEPT CLEAN AND DRY. ON TELE SR HR 87. SUPRAPUBIC CATH INTACT AND PATENT VERY MINIMAL OUTPUT THICK CLOUDY URINE OUTPUT NOTED. RCW WITH HD CATH NOTED. REPOSITIONED HIM FOR COMFORT AND SKIN MANAGEMENT. ALL NEEDS ATTENDED. KEPT HIM DRY AND CLEAN. SIDE RAILS UP X 3 AND CALL LIGHT WITHIN REACH. CONTINUE TO MONITOR HIM.
[2016-08-26 08:05] LABS: ANISOCYTOSIS 2+; BAND % (MANUAL) 8 % (0.0-5.0); LYMPHOCYTES % (MANUAL) 1 % (16-48); MONOCYTES % (MANUAL) 3 % (0-11.0); NEUTROPHILS % (MANUAL) 88 (42-76); PLATELET ESTIMATE ADEQUATE
[2016-08-26] MEDS: METOPROLOL TARTRATE 25 MG TABLET GT SCH ×2 (09:00→20:08)
[2016-08-26] MEDS: MEROPENEM 1 G in IV NS 0.9% 100 ML IV SCH ×2 (09:19→20:08)
[2016-08-26] MEDS: PANTOPRAZOLE 40 MG/PACK PACK GT SCH (09:20)
[2016-08-26] MEDS: VIT B CMPLX 3/FA/VIT C/BIOTIN 1 TAB TABLET GT SCH (09:20)
[2016-08-26] MEDS: ASCORBIC ACID 500 MG TABLET GT SCH ×2 (09:20→16:35)
[2016-08-26] MEDS: GABAPENTIN 300 MG CAPSULE GT SCH ×3 (09:20→16:35)
[2016-08-26] MEDS: PREGABALIN 25 MG CAPSULE GT SCH ×2 (09:21→16:35)
[2016-08-26] MEDS: ZINC SULFATE 220 MG CAPSULE GT SCH (09:21)
[2016-08-26] MEDS: POLYVINYL ALCOHOL 15 ML BOTTLE EACHEYE SCH ×2 (09:22→16:36)
--- NOTE | 2016-08-26 10:36 | NUR ---
WOUND CARE CONSULT: PT PRESENTS WITH PURULENT URINE FROM SUPRAPUBIC CATH. SOME HYPERGRANULAR TISSUE NOTED AROUND SUPRAPUBIC AREA. ILEOSTOMY NOTED TO BE LEAKING. SOME REDNESS AROUND STOMA NOTED. SKIN TO BE KEPT CLEAN AND DRY. (AREA CLEANSED AND NEW APPLIANCE PLACED). PT TOLERATED WELL. STAGE II ULCER NOTED TO SACRAL AREA, PRESENT ON ADMISSION WELL RED RASH TO SACRAL/BUTTOCKS AREA AND PERINEUM, PRESENT ON ADMISSION. PT ON [place] ISOFLEX LOW AIRLOSS BED. ALL SKIN PROTECTION MEASURES DISCUSSED WITH NURSING STAFF. MD IN AGREEMENT WITH PLAN OF CARE. Addendum: 08/26/16 at 1040 by JB SENIOR WNDNU Amended: Links added.
[2016-08-26] MEDS ORDERED: Z GUARD REMEDY 2 OZ OINT TP PRN (11:00)
[2016-08-26] MEDS: IV D5/ 0.9% NACL 1,000 ML IV PRN (11:15)
[2016-08-26 12:00] VITALS: BP 96/62
[2016-08-26] MEDS: Z GUARD REMEDY 2 OZ OINT TP SCH (12:45)
[2016-08-26] MEDS: HEPARIN SODIUM, PORCINE 5000 UNITS/1 ML VIAL SQ SCH (12:46)
[2016-08-26] MEDS: CLOTRIMAZOLE/BETAMETASONE DIPROPIONATE 15 GM TUBE TP SCH ×2 (14:06→16:36)
--- NOTE | 2016-08-26 15:50 | NUR ---
NOTED 15 ML CLOUDY THICK BEIGE URINE SINCE AM.TRIED TO FLUSH THE SUPRAPUBIC CATHETER BUT DRAINED THE SAME AMOUNT OF NS 120 ML USED TO FLUSH THE SUPRAPUBIC CATH WITH.DR CHAIDEZ MADE AWARE.
[2016-08-26 16:00] VITALS: BP 109/65
[2016-08-26] MEDS: RENAL NOVASOURCE 1,000 ML BOTTLE GT PRN (17:13)
--- NOTE | 2016-08-26 17:33 | NUR ---
GENI ZAMUDIO MERCHANDISE ASSOCIATE MADE AWARE OF PT'S THICK CLOUDY SEDIMENTS.
--- NOTE | 2016-08-26 19:35 | NUR ---
RN INITIAL NOTE RECEIVED PT IN NO ACUTE DISTRESS IN BED. PT IS A/O X 2 AND ABLE TO MAKE NEEDS KNOWN. PT IS ON COOL AEROSOL VIA TRACH. TRACH SITE IS CLEAN DRY AND INTACT. PT TOLERATING COOL AEROSOL WITH O2 SAT @ 98%. PT IS ON TELE WITH ST ON THE MONITOR. PT NO C/O ANY SOB, DIFFICULTY BREATHING OR PAIN AT THIS TIME. PT HAS ILEOSTOMY THAT IS CLEAN DRY AND INTACT AT THIS TIME. PT HAS SUPRAPUBIC CATH THAT IS CLEAN DRY INTACT AND PATENT WITH CLOUDY URINE DRAINING. PT HAS GTUBE THAT IS CLEAN DRY INTACT AND PATENT WITH NOVASOURCE @ 40ML/HR AND TOLERATING WELL WITH 0 RESIDUAL. PT HAS RCW HD CATH THAT IS CLEAN DRY AND INTACT. PT HAS RHAND 18G THAT IS CLEAN DRY INTACT AND PATENT WITH D5NS @ 55ML/HR. BED IN LOW LOCK POSITION WITH RIALS UP X 2. CALL LIGHT WITHIN REACH AND ALL SAFETY MEASURE ENSURED AND CARRIED OUT. WILL CONTINUE TO MONITOR PT DURING SHIFT FOR ANY CHANGE IN CONDITION.
[2016-08-26 20:00] VITALS: BP 103/64
[2016-08-27] VITALS: BP 91/59
[2016-08-27] MEDS: ACETAMINOPHEN 650 MG/20.3 ML UDC GT PRN (00:21)
[2016-08-27] MEDS: METOCLOPRAMIDE HCL 10 MG TABLET GT SCH ×4 (00:21→17:29)
[2016-08-27] MEDS: BLOOD SUGAR DIAGNOSTIC 1 EACH STRIP IN SCH ×4 (00:22→17:29)
[2016-08-27] MEDS: HEPARIN SODIUM, PORCINE 5000 UNITS/1 ML VIAL SQ SCH ×2 (00:22→12:38)
[2016-08-27 04:00] VITALS: BP 98/34
[2016-08-27] MEDS: RENAL NOVASOURCE 1,000 ML BOTTLE GT PRN ×2 (04:45→17:50)
--- NOTE | 2016-08-27 04:50 | NUR ---
RN NOTE TRANSFERRED CARE TO RAMÓN MICHELLE FOR CONTINUITY OF CARE.
[2016-08-27] MEDS: IV D5/ 0.9% NACL 1,000 ML IV PRN (05:56)
--- NOTE | 2016-08-27 07:30 | NUR ---
RN INITIAL NOTE RECEIVED REPORT FORM RAMÓN HERNÁNDEZ NURSE. PT A/O 2-3 PORTEX #7 PT ON T-PIECE COOL AEROSOL. TELE SR . ILIOSTOMY BAG INTACT. SUPRAPUBIC CATH INTACT. GTF NOVASOURCE @ 40ML/HR . IV R HAND 18G D5NS@55 ML/HR, RCW HD CATH. WILL CONTINUE TO MONITOR. ALL SAFETY MEASURES IN PLACE.
[2016-08-27 08:00] VITALS: BP 115/80
[2016-08-27] MEDS: MEROPENEM 1 G in IV NS 0.9% 100 ML IV SCH (09:00)
[2016-08-27] MEDS: ASCORBIC ACID 500 MG TABLET GT SCH ×2 (09:04→17:29)
[2016-08-27] MEDS: PREGABALIN 25 MG CAPSULE GT SCH ×2 (09:04→17:38)
[2016-08-27] MEDS: VIT B CMPLX 3/FA/VIT C/BIOTIN 1 TAB TABLET GT SCH (09:04)
[2016-08-27] MEDS: ZINC SULFATE 220 MG CAPSULE GT SCH (09:04)
[2016-08-27] MEDS: PANTOPRAZOLE 40 MG/PACK PACK GT SCH (09:05)
[2016-08-27] MEDS: GABAPENTIN 300 MG CAPSULE GT SCH ×3 (09:05→17:29)
[2016-08-27] MEDS: CLOTRIMAZOLE/BETAMETASONE DIPROPIONATE 15 GM TUBE TP SCH ×2 (09:06→17:30)
[2016-08-27] MEDS: POLYVINYL ALCOHOL 15 ML BOTTLE EACHEYE SCH ×2 (09:06→17:30)
[2016-08-27] MEDS: Z GUARD REMEDY 2 OZ OINT TP SCH (09:07)
[2016-08-27] MEDS: METOPROLOL TARTRATE 25 MG TABLET GT SCH ×2 (09:08→21:00)
[2016-08-27 12:00] VITALS: BP 113/64
[2016-08-27 16:00] VITALS: BP 113/64
[2016-08-27] MEDS ORDERED: DOSING PER PHARMACY-AMIKACI IV XX PRN (17:30)
[2016-08-27] MEDS ORDERED: AMIKACIN 450 MG in IV D5W 100 ML IV ONE (18:00)
[2016-08-27] MEDS ORDERED: LEVOFLOXACIN (250MG) 250 MG TABLET PO SCH (18:00)
[2016-08-27] MEDS ORDERED: SECONDARY IV SET 1 EA INFUS.SET MC ONE (18:29)
[2016-08-27] MEDS ORDERED: FEE PK DOSING 1 MIN EA MC ONE (18:49)
--- NOTE | 2016-08-27 19:24 | NUR ---
RN CLOSING NOTE PT A/O 2-3 PORTEX #7 PT ON T-PIECE COOL AEROSOL. TELE SR . ILIOSTOMY BAG INTACT. SUPRAPUBIC CATH INTACT. GTF NOVASOURCE @ 40ML/HR FEEDING TOLERATED. IV R HAND 18G D5NS@55 ML/HR, RCW HD CATH. REPORT GIVEN TO BRIDGER HAYS FOR CLAUDIA.ALL SAFETY MEASURES IN PLACE.
--- NOTE | 2016-08-27 19:35 | NUR ---
PLANT TECHNICIAN INITIAL NOTE PT RECEIVED IN BED. A/O X2-3 AND ABLE TO VERBALIZE NEEDS. HAS TRACH-COLLAR WITH 8L OF O2 AND SATING WELL. ILEOSTOMY CLEAN AND INTACT. SUPRAPUBIC CATHETER IN PLACE AND DRAINING IN PLACE. GTUBE INTACT AND FLUSHING WELL WITH NO RESIDUAL NOTED. FEEDING WELL TOLERATED. IV SITE INTACT AND FLUSHING WELL. RCW HD CATH CLEAN AND INTACT. CALL LIGHT WITHIN REACH. WILL CONTINUE TO MONITOR.
--- NOTE | 2016-08-27 19:41 | NUR ---
TELE-1/ADOBE DEVELOPER REPORT TO RAMÓN MIHCELLE FOR CONT OF CARE.
[2016-08-27 20:00] VITALS: BP 91/61
[2016-08-27] MEDS: MUPIROCIN OINT 2% 22 GM TUBE SCH (22:04)
[2016-08-28] VITALS: BP 106/70
[2016-08-28] MEDS: BLOOD SUGAR DIAGNOSTIC 1 EACH STRIP IN SCH ×3 (00:19→11:41)
[2016-08-28] MEDS: METOCLOPRAMIDE HCL 10 MG TABLET GT SCH ×3 (00:19→11:41)
[2016-08-28] MEDS: HEPARIN SODIUM, PORCINE 5000 UNITS/1 ML VIAL SQ SCH ×2 (00:20→11:42)
[2016-08-28] MEDS: IV D5/ 0.9% NACL 1,000 ML IV PRN (00:25)
[2016-08-28 04:00] VITALS: BP 101/64
[2016-08-28] MEDS: RENAL NOVASOURCE 1,000 ML BOTTLE GT PRN (06:07)
--- NOTE | 2016-08-28 06:59 | NUR ---
PROFESSOR OF VIOLIN CLOSING NOTE PT REMAINED STABLE DURING SHIFT. NO ACUTE DISTRESS NOTED. ISOLATION PRECAUTIONS OBSERVED. PT CARE DONE AND WELL TOLERATED. WILL ENDORSE TO NEXT SHIFT FOR CLAUDIA.
[2016-08-28 07:42] LABS: BASOPHILS % (AUTO) 0.2 % (0.0-2.0); EOSINOPHILS # (AUTO) 1.7 /CMM (0.0-0.7); EOSINOPHILS % (AUTO) 16.1 % (0.0-6.0); HEMATOCRIT 36 % (39-51); HEMOGLOBIN 10.9 g/dL (13.5-17.5); LYMPHOCYTES # (AUTO) 0.7 /CMM (0.8-4.8); LYMPHOCYTES % (AUTO) 6.3 % (20.0-44.0); MEAN CORPUSCULAR HEMOGLOBIN 33 PG (26.0-33.0); MEAN CORPUSCULAR HGB CONC 31 g/dl (31.0-36.0); MEAN CORPUSCULAR VOLUME 106 fL (80-96); MONOCYTES # (AUTO) 2.2 /CMM (0.1-1.30); NEUTROPHILS % (AUTO) 56.4 % (43.0-81.0); PLATELET COUNT (AUTO) 292 /CMM (150-450); RED BLOOD CELL COUNT(AUTO) 3.34 MIL/uL (4.5-6.0); WHITE BLOOD COUNT (AUTO) 10.6 K/uL (4.3-11.0)
[2016-08-28 08:00] VITALS: BP 109/72
--- NOTE | 2016-08-28 08:00 | NUR ---
AM RN NOTES RECEIVED PT IN STABLE CONDITION, NO SOB OR DISTRESS NOTED, NO PAIN OR DISCOMFORT, WILL MONITOR.
[2016-08-28 08:22] LABS: ALBUMIN 3.1 g/dL (3.4-5.0); BILIRUBIN,TOTAL 0.3 mg/dL (0.2-1.0); CALCIUM, SERUM 10.1 mg/dL (8.5-10.1); CREATININE 4.2 mg/dL (0.6-1.3); MAGNESIUM 2.2 mg/dL (1.8-2.4); PHOSPHORUS 4.8 mg/dL (2.5-4.9); TOTAL PROTEIN, SERUM 7.2 g/dL (6.4-8.2)
[2016-08-28 08:40] LABS: EOSINOPHILS % (MANUAL) 21 % (0-4); LYMPHOCYTES % (MANUAL) 4 % (16-48); MONOCYTES % (MANUAL) 23 % (0-11.0); NEUTROPHILS % (MANUAL) 52 (42-76)
[2016-08-28 08:41] LABS: ANISOCYTOSIS 2+; PLATELET ESTIMATE GIANT PLATELET SEEN
[2016-08-28] MEDS: ASCORBIC ACID 500 MG TABLET GT SCH (08:54)
[2016-08-28] MEDS: ZINC SULFATE 220 MG CAPSULE GT SCH (08:54)
[2016-08-28] MEDS: PREGABALIN 25 MG CAPSULE GT SCH (08:54)
[2016-08-28] MEDS: GABAPENTIN 300 MG CAPSULE GT SCH ×2 (08:54→12:21)
[2016-08-28] MEDS: VIT B CMPLX 3/FA/VIT C/BIOTIN 1 TAB TABLET GT SCH (08:54)
[2016-08-28] MEDS: PANTOPRAZOLE 40 MG/PACK PACK GT SCH (08:54)
[2016-08-28 08:56] VITALS: BP 109/72
[2016-08-28] MEDS: METOPROLOL TARTRATE 25 MG TABLET GT SCH (08:56)
[2016-08-28] MEDS: MUPIROCIN OINT 2% 22 GM TUBE SCH (08:59)
[2016-08-28] MEDS: Z GUARD REMEDY 2 OZ OINT TP SCH (09:00)
[2016-08-28] MEDS: CLOTRIMAZOLE/BETAMETASONE DIPROPIONATE 15 GM TUBE TP SCH (09:00)
[2016-08-28] MEDS: POLYVINYL ALCOHOL 15 ML BOTTLE EACHEYE SCH (09:01)
[2016-08-28] MEDS ORDERED: ALLA266C2 TP (10:06)
[2016-08-28] MEDS ORDERED: PANT40SU2 GT (10:06)
[2016-08-28] MEDS ORDERED: RXAMI XX (10:06)
[2016-08-28] MEDS ORDERED: CLOT15CR5 TP (10:06)
[2016-08-28] MEDS ORDERED: LEVO250T2 PO (10:06)
--- NOTE | 2016-08-28 14:02 | NUR ---
PT DISCHARGED OT [facility], IN STABLE CONDITION, NO SOB OR DISTRESS NOTED, NO PAIN,PT REFUSED TO CHANGE ILEOSTOMY BAG AND TO TAKE PICTURE AT SITE REDNESS, RISKS AND BENEFITS OR REFUSAL DISCUSSED WITH PT. REPORT GIVEN TO ARVIN HAYS AT [facility], AND AMBULANCE STAFF, PT TRANSFERRED VIA AMBULANCE, LEFT FLOOR SAFELY.
[2016-08-28] MEDS ORDERED: AMIKACIN 400 MG in IV D5W 100 ML IV PRN (18:00)
== END 2016-08-28 13:53 | DRG 871 ==
LOC: ER 15:49 → TELE1 18:09 → MEDSG1 08-28 08:52
PROVIDERS: ADMIT Internal Medicine; ATTEND Internal Medicine
PROC: 5A1D60Z (ICD-10-PCS; principal; 2016-08-25)
DX: A41.9 Sepsis, unspecified organism (principal); N18.6 End stage renal disease; I13.11 Hypertensive heart and chronic kidney disease without heart failure, with stage 5 chronic kidney disease, or end stage renal disease; J96.10 Chronic respiratory failure, unspecified whether with hypoxia or hypercapnia; Z99.11 Dependence on respirator [ventilator] status; G82.20 Paraplegia, unspecified; N39.0 Urinary tract infection, site not specified; J96.11 Chronic respiratory failure with hypoxia; E87.5 Hyperkalemia; E11.22 Type 2 diabetes mellitus with diabetic chronic kidney disease; Z93.0 Tracheostomy status; Z99.2 Dependence on renal dialysis; Q05.9 Spina bifida, unspecified; R50.9 Fever, unspecified; Z88.0 Allergy status to penicillin; Z88.2 Allergy status to sulfonamides; B96.89 Other specified bacterial agents as the cause of diseases classified elsewhere; E86.1 Hypovolemia
CPT/HCPCS: 31720; 36415; 71010-TC; 80048-TC; 80053-TC; 80076-TC; 81000-TC; 82962-TC; 83605-TC; 83735-TC; 84100-TC; 84484-TC; 85025-TC; 85730-TC; 87040-TC; 87081-TC; 87086-TC; 87186-TC; 90935-TC; 94640-TC; 94664-TC; 94760-TC; 94762-TC; A4216; A4606; A6402; J0278; J1644; J1815; J2185; J7030; J7042; J7050; J7060; J8597; P9047; Z7610

== ENCOUNTER 2016-10-30 11:18 | Inpatient (IN) | payer MEDICARE, MEDICAID ==
[~2016-10-30] VITALS: Ht 167.6 cm; Wt 53.2 kg
[2016-10-30 04:00] VITALS: BP 144/66
[~2016-10-30 11:18] MED LIST changes: -BLOO-668 IN; +CLOT15CR5 TP; -EPOE1VIA4 SQ; -HEPA50008 SQ; +LEVO250T2 PO; +METO75TA PO; -MIDO10TA GT; -OLOP5DRO EACHEYE; +ONDA4TAB5 GT; +PANT40SU2 GT; -PANT40TA2 PO; +PREG25CA GT; -PSYL1PAC8 GT; +RXAMI XX; -SEVE800T8 GT; -SODI650T GT
--- NOTE | 2016-10-30 11:36 | NUR ---
PT BIBRA FROM SNIF TO ER BED 11. HERE FOR ABNORMAL LABS. PER REPORT, LOW H&H GOWNED AND PLACED ON MONITOR. VSS SUPERVISOR MELT HOUSE. PT IS AAO, AWAITING MD PINEDA.
--- NOTE | 2016-10-30 11:38 | NUR ---
dr guerra at bedside for eval.
--- NOTE | 2016-10-30 11:45 | NUR ---
iv line started blood drawn and sent to lab.
[2016-10-30 11:56] LABS: BASOPHILS # (AUTO) 0.2 /CMM (0.0-0.2); BASOPHILS % (AUTO) 0.7 % (0.0-2.0); EOSINOPHILS # (AUTO) 1.1 /CMM (0.0-0.7); EOSINOPHILS % (AUTO) 4.9 % (0.0-6.0); HEMATOCRIT 22 % (39-51); LYMPHOCYTES % (AUTO) 4.4 % (20.0-44.0); MEAN CORPUSCULAR HEMOGLOBIN 31 PG (26.0-33.0); MEAN CORPUSCULAR HGB CONC 31 g/dl (31.0-36.0); MEAN CORPUSCULAR VOLUME 99 fL (80-96); MONOCYTES # (AUTO) 3.2 /CMM (0.1-1.30); MONOCYTES % (AUTO) 14.4 % (2.0-12.0); NEUTROPHILS # (AUTO) 16.8 /CMM (1.8-8.9); NEUTROPHILS % (AUTO) 75.6 % (43.0-81.0); PLATELET COUNT (AUTO) 629 /CMM (150-450); RDW COEFFICIENT OF VARIATION 17.9 (11.5-15.0); RED BLOOD CELL COUNT(AUTO) 2.24 MIL/uL (4.5-6.0); WHITE BLOOD COUNT (AUTO) 22.3 K/uL (4.3-11.0)
--- NOTE | 2016-10-30 12:03 | NUR ---
radiology at bedside for chest xray.
[2016-10-30 12:05] LABS: CALCIUM, SERUM 10.5 mg/dL (8.5-10.1); CREATININE 4.6 mg/dL (0.6-1.3); INR 0.9 (0.87-1.13); PROTHROMBIN TIME 9.4 SECS (9.5-12.7)
[2016-10-30 12:08] LABS: HEMOGLOBIN 6.9 g/dL (13.5-17.5)
--- NOTE | 2016-10-30 12:25 | NUR ---
CALLED , MANAGER AGENCY, PAGED TO CALL BACK
--- NOTE | 2016-10-30 12:28 | NUR ---
CALLED NURSING SUP. FOR TELE BED
--- NOTE | 2016-10-30 12:49 | NUR ---
REPORT GIVEN TO GERMAINE. PT AWAITING TRANSFER TO FLOOR.
[2016-10-30] MEDS ORDERED: CIPROFLOXACIN IV RTU 400 MG in PREMIX 1 EA IV SCH (13:00)
[2016-10-30 13:28] LABS: BAND % (MANUAL) 1 % (0.0-5.0); EOSINOPHILS % (MANUAL) 3 % (0-4); LYMPHOCYTES % (MANUAL) 7 % (16-48); MONOCYTES % (MANUAL) 10 % (0-11.0); NEUTROPHILS % (MANUAL) 79 (42-76)
--- NOTE | 2016-10-30 14:00 | NUR ---
RN INITIAL NOTE PATIENT RECEIVED FROM ER. PATIENT IS AWAKE ALERT AND ORIENTED.NO S/S OF PAIN OR DISCOMFORT. RESPIRATIONS ARE EVEN AND UNLABORED. NO S/S OF RESPIRATORY DISTRESS OR SOB. SATING WELL ON ROOM AIR. SINUS RHYTHM ON TELE. GTUBE CLAMPED. IV SITE FLUSHED AND PATENT. SKIN IS WARM AND DRY TO TOUCH. CALL LIGHT WITHIN EASY REACH. BED IN LOCKED, LOW POSITION. WILL CONTINUE TO MONITOR.
[2016-10-30] MEDS ORDERED: RENAL NOVASOURCE 1,000 ML BOTTLE GT PRN (15:30)
[2016-10-30] MEDS ORDERED: IPRATROPIUM NEB FS 0.5 MG/2.5 ML AMPUL.NEB NEB PRN (16:00)
[2016-10-30] MEDS ORDERED: ALBUTEROL FS 2.5 MG/3 ML VIAL.NEB NEB PRN (16:00)
[2016-10-30] MEDS ORDERED: NUTRITIONAL SUPPLEMENT GT SCH (16:00)
[2016-10-30] MEDS ORDERED: ONDANSETRON 4 MG TAB.RAPDIS GT PRN (16:30)
[2016-10-30] MEDS: ASCORBIC ACID SYRUP 500 MG/5 ML UDC GT SCH (17:50)
[2016-10-30] MEDS: POLYVINYL ALCOHOL 15 ML BOTTLE EACHEYE SCH (17:50)
[2016-10-30] MEDS: GABAPENTIN 300 MG CAPSULE GT SCH (17:50)
[2016-10-30] MEDS: ACETAMINOPHEN 650 MG/20.3 ML UDC NG PRN ×2 (17:50→21:55)
[2016-10-30] MEDS: METOCLOPRAMIDE HCL 10 MG TABLET GT SCH (17:51)
[2016-10-30] MEDS: diphenhydrAMINE HCL 50 MG/ML VIAL IV PRN (18:33)
[2016-10-30 18:50] VITALS: BP 112/66
[2016-10-30 19:00] VITALS: BP 110/64
--- NOTE | 2016-10-30 19:05 | NUR ---
ONE UNIT PRBC TRANSFUSION WITH DIALYSIS END . NO TRANSFUSION REACTION NOTED . PT STILL GETTING DIALYSIS . WILL CONTINUE TO MONITOR .
[2016-10-30] MEDS ORDERED: DOSING PER PHARMACY-AMIKACI IV XX PRN (19:30)
[2016-10-30] MEDS ORDERED: FEE PK DOSING 1 MIN EA MC ONE ×2 (19:37)
[2016-10-30 20:00] VITALS: BP 95/54
[2016-10-30] MEDS ORDERED: AMIKACIN 400 MG in IV D5W 100 ML IV ONE (20:00)
[2016-10-30] MEDS ORDERED: VANCOMYCIN 1 GM in IV D5W 250 ML IV ONE (20:00)
[2016-10-30] MEDS: INSULIN LISPRO/ASPART 100 UNIT/ML CARTRIDGE SQ SCH (20:00)
--- NOTE | 2016-10-30 20:12 | NUR ---
RN NOTES RECEIVED PATIENT, STILL COMPUTER DESIGNER TO MACHINE FOR HD. NO RESPIRATORY DISTRESS OR SHORTNESS OF BREATH. BREATHING EVEN AND UNLABORED. ALERT WITH CONFUSION. VERBALLY ABLE TO COMMUNICATE NEEDS. WILL CONTINUE TO MONITOR
[2016-10-30 20:43] LABS: RETICULOCYTE COUNT 4.3 % (0.6-2.5)
[2016-10-30 20:48] LABS: THYROID STIMULATING HORMONE 1.255 uIU/mL (0.358-3.74)
[2016-10-30] MEDS: METOPROLOL TARTRATE 25 MG TABLET PO SCH (21:00)
[2016-10-30] MEDS: FLUCONAZOLE (100 MG) 100 MG TABLET PO SCH (21:56)
[2016-10-31] VITALS: BP 101/63
[2016-10-31] MEDS: METOCLOPRAMIDE HCL 10 MG TABLET GT SCH ×5 (00:14→23:35)
[2016-10-31] MEDS: diphenhydrAMINE HCL 50 MG/ML VIAL IV PRN ×3 (02:34→20:32)
[2016-10-31 04:00] VITALS: BP 101/63
--- NOTE | 2016-10-31 07:15 | NUR ---
RN CLOSING NOTES AWAKE IN BED, DID NOT SLEEP THE WHOLE NIGHT. COMPLAINED OF ITCHINESS AT THE RIGHT ANTICUBITAL AREA, BENADRYL GIVEN, WITH RELIEF. NO DISTRESS NOTED, BREATHING EVEN AND UNLABORED. KEPT CLEAN AND DRY. ENDORSE TO AM SHIFT FOR CONTINUITY OF CARE.
--- NOTE | 2016-10-31 07:15 | NUR ---
MECHANIC/WELDER INITIAL NOTES REPORT RECEIVED AT THE BEDSIDE. PATIENT IS RESTING COMFORTABLY IN BED. NO SOB OR DISTRESS NOTED. PATIENT COMPLAINING OF A MILD HEADACHE. WILL FOLLOW UP WITH TYLENOL. BED IN A LOW POSITION, CALL LIGHT WITHIN PATIENT REACH. HEAR RATE SR ON THE MONITOR. WILL CONTINUE TO MONITOR.
[2016-10-31 07:20] LABS: BASOPHILS % (AUTO) 0.2 % (0.0-2.0); EOSINOPHILS # (AUTO) 1.3 /CMM (0.0-0.7); EOSINOPHILS % (AUTO) 7.1 % (0.0-6.0); HEMATOCRIT 25 % (39-51); HEMOGLOBIN 7.8 g/dL (13.5-17.5); LYMPHOCYTES # (AUTO) 0.9 /CMM (0.8-4.8); LYMPHOCYTES % (AUTO) 4.9 % (20.0-44.0); MEAN CORPUSCULAR HEMOGLOBIN 32 PG (26.0-33.0); MEAN CORPUSCULAR HGB CONC 32 g/dl (31.0-36.0); MEAN CORPUSCULAR VOLUME 101 fL (80-96); MONOCYTES # (AUTO) 2.5 /CMM (0.1-1.30); MONOCYTES % (AUTO) 13.7 % (2.0-12.0); NEUTROPHILS # (AUTO) 13.5 /CMM (1.8-8.9); NEUTROPHILS % (AUTO) 74.1 % (43.0-81.0); PLATELET COUNT (AUTO) 546 /CMM (150-450); RDW COEFFICIENT OF VARIATION 17.8 (11.5-15.0); RED BLOOD CELL COUNT(AUTO) 2.46 MIL/uL (4.5-6.0); WHITE BLOOD COUNT (AUTO) 18.2 K/uL (4.3-11.0)
[2016-10-31] MEDS: INSULIN LISPRO/ASPART 100 UNIT/ML CARTRIDGE SQ SCH ×3 (07:30→17:30)
[2016-10-31 07:44] LABS: CALCIUM, SERUM 9.4 mg/dL (8.5-10.1); CREATININE 2.7 mg/dL (0.6-1.3); POTASSIUM 4.4 mmol/L (3.5-5.1)
[2016-10-31 08:00] VITALS: BP 116/71
[2016-10-31] MEDS: GABAPENTIN 300 MG CAPSULE GT SCH ×3 (08:50→17:37)
[2016-10-31] MEDS: ASCORBIC ACID SYRUP 500 MG/5 ML UDC GT SCH ×2 (08:50→17:37)
[2016-10-31] MEDS: POLYVINYL ALCOHOL 15 ML BOTTLE EACHEYE SCH ×2 (08:50→17:43)
[2016-10-31] MEDS: ZINC SULFATE 220 MG CAPSULE GT SCH (08:50)
[2016-10-31] MEDS: ACETAMINOPHEN 650 MG/20.3 ML UDC NG PRN ×2 (08:50→15:11)
[2016-10-31] MEDS: METOPROLOL TARTRATE 25 MG TABLET PO SCH ×2 (09:00→20:38)
--- NOTE | 2016-10-31 10:39 | NUR ---
RN NOTES RECOMMENDATION PER NUTRITION IS TO DECREASE FEEDING RATE FROM 50ML/HR TO 45ML/HR. ORDERS PLACED AND CARRIED OUT.
[2016-10-31] MEDS ORDERED: Z GUARD REMEDY 2 OZ OINT TP PRN (11:30)
[2016-10-31 16:00] VITALS: BP 125/74
[2016-10-31] MEDS ORDERED: INSULIN REGULAR, HUMAN 100 UNIT/ML 3 ML VIAL SQ PRN (16:00)
[2016-10-31] MEDS ORDERED: DEXTROSE 50%-WATER 50 ML DISP.SYRIN IV PRN (16:00)
[2016-10-31] MEDS: BLOOD SUGAR DIAGNOSTIC 1 EACH STRIP IN SCH ×2 (17:37→23:35)
[2016-10-31] MEDS: LACTOBACILLUS RHAMNOSUS GG 1 EACH CAP.SPRINK GT SCH (17:37)
--- NOTE | 2016-10-31 18:47 | NUR ---
MS RN CLOSING NOTES NO SIGNIFICANT CHANGES IN PATIENT CONDITION THROUGHOUT THE SHIFT. NO SOB OR DISTRESS NOTED AT THIS TIME. PATIENT DENIES PAIN. BED IN A LOW POSITION, CALL LIGHT WITHIN PATIENT REACH. WILL ENDORSE FOR CLAUDIA.
[2016-10-31] MEDS ORDERED: VANCOMYCIN 500 MG in IV D5W 100 ML IV PRN (19:30)
[2016-10-31] MEDS ORDERED: AMIKACIN 500 MG in IV D5W 100 ML IV PRN (19:30)
--- NOTE | 2016-10-31 19:37 | NUR ---
RN NOTES IN BED AWAKE, ASKING FOR PAIN MEDICATION. ALERT WITH CONFUSION AND FORGETFULNESS. NO DISTRESS, BREATHING EVEN AND UNLABORED. GTUBE FEEDING WELL TOLERATED. SUPRA PUBIC DRAINING CLEAR YELLOW WITH NO FOUL ODOR URINE. WILL CONTINUE TO MONITOR
[2016-10-31 20:00] VITALS: BP 112/72
[2016-10-31] MEDS: FLUCONAZOLE (100 MG) 100 MG TABLET PO SCH (20:39)
[2016-11-01] VITALS: BP 124/82
[2016-11-01] MEDS: RENAL NOVASOURCE 1,000 ML BOTTLE GT PRN (00:07)
[2016-11-01 03:56] VITALS: BP 121/79
[2016-11-01] MEDS: BLOOD SUGAR DIAGNOSTIC 1 EACH STRIP IN SCH ×3 (05:47→17:56)
[2016-11-01 06:37] LABS: ALBUMIN 2.7 g/dL (3.4-5.0); BILIRUBIN,TOTAL 0.3 mg/dL (0.2-1.0); CALCIUM, SERUM 10.5 mg/dL (8.5-10.1); MAGNESIUM 2.6 mg/dL (1.8-2.4); PHOSPHORUS 7.3 mg/dL (2.5-4.9); POTASSIUM 4.6 mmol/L (3.5-5.1); TOTAL PROTEIN, SERUM 8.3 g/dL (6.4-8.2)
[2016-11-01] MEDS: METOCLOPRAMIDE HCL 10 MG TABLET GT SCH ×3 (06:40→17:55)
[2016-11-01 06:55] LABS: EOSINOPHILS # (AUTO) 1.5 /CMM (0.0-0.7); HEMATOCRIT 28 % (39-51); HEMOGLOBIN 8.5 g/dL (13.5-17.5); LYMPHOCYTES # (AUTO) 0.8 /CMM (0.8-4.8); LYMPHOCYTES % (AUTO) 4.2 % (20.0-44.0); MEAN CORPUSCULAR HEMOGLOBIN 31 PG (26.0-33.0); MEAN CORPUSCULAR HGB CONC 31 g/dl (31.0-36.0); MEAN CORPUSCULAR VOLUME 101 fL (80-96); MONOCYTES # (AUTO) 2.8 /CMM (0.1-1.30); NEUTROPHILS # (AUTO) 13.6 /CMM (1.8-8.9); NEUTROPHILS % (AUTO) 72.8 % (43.0-81.0); PLATELET COUNT (AUTO) 598 /CMM (150-450); RDW COEFFICIENT OF VARIATION 18.1 (11.5-15.0); RED BLOOD CELL COUNT(AUTO) 2.73 MIL/uL (4.5-6.0); WHITE BLOOD COUNT (AUTO) 18.7 K/uL (4.3-11.0)
--- NOTE | 2016-11-01 07:18 | NUR ---
RN INITIAL NOTES: REC'D PT ASLEEP ON BED, NOT IN ANY DISTRESS, AROUSABLE, A/O X1-2 W/ CONFUSION. HAS TRACH ON COOL AEROSOL AT 5LPM, NO SOB. ON CONT TUBE FEEDING NOVASOURCE 45 CC/HR INFUSING WELL, NO RESIDUAL NOTED UPON CHECKING. IV ACCESS ON R AC G18, FLUSHED, PATENT & INTACT W/ NO SIGN OF INFECTION/ INFILTRATION. R CHEST PERMA CATH IN PLACE. COLOSTOMY BAG INTACT. PROVIDED COMFORT & SAFETY MEASURES. BED KEPT LOW & IN LOCKED POS. NEEDS ATTENDED. WILL CONTINUE TO MONITOR.
[2016-11-01] MEDS: INSULIN LISPRO/ASPART 100 UNIT/ML CARTRIDGE SQ SCH ×3 (07:30→17:30)
--- NOTE | 2016-11-01 07:41 | NUR ---
RN CLOSING NOTED SLEEPING COMFORTABLY IN BED WITH NO RESPIRATORY DISTRESS OR SHORTNESS OF BREATH. BREATHING EVEN AND UNLABORED. NO COMPLAINT OF PAIN. KEPT CLEAN DRY. ENDORSED TO AM SHIFT FOR CONTINUITY OF CARE
[2016-11-01 08:00] VITALS: BP 107/74
[2016-11-01] MEDS: ASCORBIC ACID SYRUP 500 MG/5 ML UDC GT SCH ×2 (08:10→17:55)
[2016-11-01] MEDS: GABAPENTIN 300 MG CAPSULE GT SCH ×3 (08:11→17:55)
[2016-11-01] MEDS: METOPROLOL TARTRATE 25 MG TABLET PO SCH ×2 (08:11→20:47)
[2016-11-01] MEDS: ZINC SULFATE 220 MG CAPSULE GT SCH (08:11)
[2016-11-01] MEDS: LACTOBACILLUS RHAMNOSUS GG 1 EACH CAP.SPRINK GT SCH ×2 (08:11→17:55)
[2016-11-01] MEDS: POLYVINYL ALCOHOL 15 ML BOTTLE EACHEYE SCH ×2 (08:12→17:56)
[2016-11-01 08:40] LABS: BAND % (MANUAL) 3 % (0.0-5.0); EOSINOPHILS % (MANUAL) 8 % (0-4); LYMPHOCYTES % (MANUAL) 8 % (16-48); MONOCYTES % (MANUAL) 10 % (0-11.0); NEUTROPHILS % (MANUAL) 71 (42-76)
[2016-11-01] MEDS: EPOETIN ALFA (10,000 UNIT) 10,000 UNIT/ML VIAL IV SCH (10:05)
[2016-11-01 16:00] VITALS: BP 101/67
--- NOTE | 2016-11-01 17:00 | NUR ---
RN NOTES: HD STARTED.
--- NOTE | 2016-11-01 19:07 | NUR ---
RN CLOSING NOTES: NO ACUTE CHANGES NOTED W/IN SHIFT. PT SATURATING AT 100% WHILE ON COOL AEROSOL AT 5LPM, NO SOB. CONT TUBE FEEDING NOVASOURCE 45 CC/HR TOLERATED WELL, NO RESIDUAL NOTED W/IN SHIFT. NEW IV ACCESS ON R HAND G22, FLUSHED, PATENT & INTACT W/ NO SIGN OF INFECTION/ INFILTRATION. R CHEST PERMA CATH KEPT IN PLACE. HD PROCEDURE TOLERATED WELL, NO OUTPUT TAKEN. COLOSTOMY BAG KEPT INTACT AND IN PLACE. KEPT WELL RESTED. NEEDS ATTENDED. BED KEPT LOW & IN LOCKED POS. FOR VANCOMYCIN INFUSION. ENDORSED TO PM RN FOR CLAUDIA.
--- NOTE | 2016-11-01 19:20 | NUR ---
RN NOTES RECEIVED PT AWAKE ALERT ORIENTED X 2 WITH CONFUSION. STATED THAT HIS COLOSTOMY BAG IS LEAKING. CHECKED BAG ITS CLEANED AND INTACT. INFORMED PT AND SAID SORRY. NO ACUTE RESP DISTRESS. PALE LOOKING. IV SITE ON RAC G 22 INTACT FLUSHED WELL. RIGHT CHEST WALL PERMA CATH INTACT WITH CLEANED DRESSING. SATING 100% ON C/A 5LPM GTF OF NOVASOURCE @ 45 CC/HR INTACT AND PATENT. WITH ZERO RESIDUAL. OFFLOADED EXT WITH PILLOWS. KEPT PT CLEAN AND DRY. CALL LIGHT KEPT WITHIN EASY REACH. WILL CONTINUE TO MONITOR.
[2016-11-01 20:00] VITALS: BP 133/94
[2016-11-01] MEDS: FLUCONAZOLE (100 MG) 100 MG TABLET PO SCH (20:34)
[2016-11-01] MEDS: diphenhydrAMINE HCL 50 MG/ML VIAL IV PRN (21:31)
[2016-11-02] MEDS: METOCLOPRAMIDE HCL 10 MG TABLET GT SCH ×4 (00:26→17:35)
[2016-11-02] MEDS: BLOOD SUGAR DIAGNOSTIC 1 EACH STRIP IN SCH ×4 (00:30→17:35)
[2016-11-02 04:00] VITALS: BP 94/57
[2016-11-02] MEDS: diphenhydrAMINE HCL 50 MG/ML VIAL IV PRN ×2 (04:16→16:20)
[2016-11-02] MEDS: RENAL NOVASOURCE 1,000 ML BOTTLE GT PRN (04:43)
[2016-11-02 06:41] LABS: BASOPHILS % (AUTO) 0.3 % (0.0-2.0); EOSINOPHILS # (AUTO) 1.1 /CMM (0.0-0.7); EOSINOPHILS % (AUTO) 7.3 % (0.0-6.0); HEMATOCRIT 26 % (39-51); HEMOGLOBIN 8.1 g/dL (13.5-17.5); LYMPHOCYTES # (AUTO) 0.9 /CMM (0.8-4.8); LYMPHOCYTES % (AUTO) 5.9 % (20.0-44.0); MEAN CORPUSCULAR HEMOGLOBIN 32 PG (26.0-33.0); MEAN CORPUSCULAR HGB CONC 32 g/dl (31.0-36.0); MEAN CORPUSCULAR VOLUME 101 fL (80-96); MONOCYTES # (AUTO) 2.7 /CMM (0.1-1.30); MONOCYTES % (AUTO) 17.8 % (2.0-12.0); NEUTROPHILS # (AUTO) 10.4 /CMM (1.8-8.9); NEUTROPHILS % (AUTO) 68.7 % (43.0-81.0); PLATELET COUNT (AUTO) 544 /CMM (150-450); RDW COEFFICIENT OF VARIATION 18.3 (11.5-15.0); RED BLOOD CELL COUNT(AUTO) 2.52 MIL/uL (4.5-6.0); WHITE BLOOD COUNT (AUTO) 15.1 K/uL (4.3-11.0)
[2016-11-02 07:12] LABS: ALBUMIN 2.5 g/dL (3.4-5.0); BILIRUBIN,TOTAL 0.2 mg/dL (0.2-1.0); CALCIUM, SERUM 9.8 mg/dL (8.5-10.1); CREATININE 3.7 mg/dL (0.6-1.3); MAGNESIUM 2.4 mg/dL (1.8-2.4); PHOSPHORUS 6.4 mg/dL (2.5-4.9); POTASSIUM 4.7 mmol/L (3.5-5.1); TOTAL PROTEIN, SERUM 7.7 g/dL (6.4-8.2)
--- NOTE | 2016-11-02 07:15 | NUR ---
RN NOTES PT DIDN'T SLEEP MUCH, VERY ANXIOUS KEEP TRYING TO TOUCH AND SCRATCH ALL OSTOMY AND IV LINE. REMINDED NOT TO TOUCH AND MEDICAL DEVICES. FOLLOWED COMMAND BUT EASILY FORGETS. ALL DUE MEDICINE TOLERATED WELL. ENDORSED TO NEXT SHIFT NURSE TO FOLLOW UP ANTI ANXIETY MEDS THAT OPT MIGHT NEEDED. KEPT PT CLEAN AND DRY SKIN RE-ASSESSMENT DONE WOUND TX. DONE ORDERED. WILL ENDORSED CONTINUITY OF CARE TO AM NURSE.
[2016-11-02] MEDS: INSULIN LISPRO/ASPART 100 UNIT/ML CARTRIDGE SQ SCH ×3 (07:30→17:30)
--- NOTE | 2016-11-02 07:40 | NUR ---
RN NOTES RECEIVED PT RESTING IN BED, AWAKE ALERT ORIENTED X 2 WITH CONFUSION. ON T PIECE COOL AEROSOL @5LPM NO ACUTE RESP DISTRESS. IV SITE ON L HAND G 22 INTACT FLUSHED WELL. RIGHT CHEST WALL PERMA CATH INTACT WITH CLEANED DRESSING. ONGOING GTF NOVASOURCE @45 CC/HR INTACT AND PATENT, NO RESIDUAL NOTED. OFFLOADED EXT WITH PILLOWS. KEPT PT CLEAN AND DRY. CALL LIGHT KEPT WITHIN EASY REACH. WILL CONTINUE TO MONITOR.
[2016-11-02 07:50] LABS: BAND % (MANUAL) 3 % (0.0-5.0); EOSINOPHILS % (MANUAL) 9 % (0-4); LYMPHOCYTES % (MANUAL) 7 % (16-48); MONOCYTES % (MANUAL) 9 % (0-11.0); NEUTROPHILS % (MANUAL) 72 (42-76)
[2016-11-02 08:00] VITALS: BP 108/64
[2016-11-02] MEDS: METOPROLOL TARTRATE 25 MG TABLET PO SCH ×2 (09:00→21:00)
[2016-11-02] MEDS: ZINC SULFATE 220 MG CAPSULE GT SCH (09:33)
[2016-11-02] MEDS: GABAPENTIN 300 MG CAPSULE GT SCH ×3 (09:33→16:20)
[2016-11-02] MEDS: LACTOBACILLUS RHAMNOSUS GG 1 EACH CAP.SPRINK GT SCH ×2 (09:33→16:20)
[2016-11-02] MEDS: ASCORBIC ACID SYRUP 500 MG/5 ML UDC GT SCH ×2 (09:33→16:19)
[2016-11-02] MEDS: POLYVINYL ALCOHOL 15 ML BOTTLE EACHEYE SCH ×2 (09:34→16:21)
[2016-11-02] MEDS: ACETAMINOPHEN 650 MG/20.3 ML UDC NG PRN (09:38)
[2016-11-02] MEDS: EPOETIN ALFA (10,000 UNIT) 10,000 UNIT/ML VIAL IV SCH (10:12)
--- NOTE | 2016-11-02 11:55 | NUR ---
WOUND CARE CONSULT PATIENT SEEN AND SKIN ASSESSED. PATIENT PRESENTS WITH A POA UNSTAGEABLE WOUND ON THE LEFT LATERAL ANKLE. RECOMMEND APPLY A SMALL AMOUNT OF HYDROGEL AND A MEPILEX DAILY/PRN SOILING. DR WADE CONSULTED PER DR SALDANA'S ORDER. TO RECOMMEND FURTHER TREATMENT. DR SALDANA IN AGREEMENT TO APPLY LOTRIMIN AND COVER WITH ZGUARD BID FOR RASH ON BUTTOCKS AND LOWER BACK. MINOR EXCORIATION ON BUTTOCKS, APPLY ZGUARD DAILY AND NEEDED. PATIENT ON STRIKER GLE MATTRESS, RECOMMEND ISOFLEX AIR. WOUND TREATMENT ORDERS PLACED. ALL RECOMMENDATIONS DISCUSSED WITH NURSING STAFF. WILL FOLLOW NEEDED. Addendum: 11/02/16 at 1204 by ZACH BEE RN Amended: Links added.
[2016-11-02] MEDS: HYDROGEL DRESSING 90 GM TUBE TP SCH (13:34)
[2016-11-02 16:00] VITALS: BP 121/76
--- NOTE | 2016-11-02 16:19 | NUR ---
RN NOTES URINE SPECIMEN SENT FOR TESTING
[2016-11-02] MEDS: QUETIAPINE FUMARATE 25 MG TABLET PO PRN (16:20)
[2016-11-02] MEDS: CLOTRIMAZOLE 1% 15 GM TUBE TP SCH ×2 (16:26→17:35)
--- NOTE | 2016-11-02 19:15 | NUR ---
RN NOTES PT ASLEEP ON BED ALERT ORIENTED X 2 WITH CONFUSION. NO ACUTE RESP DISTRESS. PALE LOOKING. IV SITE ON LEFT HAND G 22 INTACT FLUSHED WELL. RIGHT CHEST WALL PERMA CATH INTACT WITH CLEANED DRESSING. SATING 100% ON C/A 5LPM GTF NOVASOURCE @ 45 CC/HR. INTACT AND PATENT. WITH ZERO RESIDUAL. COLOSTOMY BAG INTACT WITH BLACK COLOR LIQUID OUTPUT. OFFLOADED EXT WITH PILLOWS. KEPT PT CLEAN AND DRY. CALL LIGHT KEPT WITHIN EASY REACH. WILL CONTINUE TO MONITOR.
[2016-11-02 20:00] VITALS: BP 96/61
[2016-11-02 20:36] VITALS: BP 96/61
[2016-11-02] MEDS: FLUCONAZOLE (100 MG) 100 MG TABLET PO SCH (21:22)
[2016-11-03] MEDS: METOCLOPRAMIDE HCL 10 MG TABLET GT SCH ×4 (00:38→19:40)
[2016-11-03] MEDS: QUETIAPINE FUMARATE 25 MG TABLET PO PRN ×2 (00:46→09:59)
[2016-11-03] MEDS: ACETAMINOPHEN 650 MG/20.3 ML UDC NG PRN ×3 (00:46→18:04)
[2016-11-03] MEDS: BLOOD SUGAR DIAGNOSTIC 1 EACH STRIP IN SCH ×4 (00:52→18:00)
[2016-11-03 04:00] VITALS: BP 94/59
--- NOTE | 2016-11-03 06:05 | NUR ---
RN NOTES PT ASLEEP WELL FOR ABOUT 8 HOURS. WOKE UP AND WANTED TO SCRATCH HIS BACK. NO SOB OR ANY ACUTE RESP DISTRESS. AFEBRILE. VS STABLE. ALL DUE MEDICINE TOLERATED WELL. COLOSTOMY CARE AND SUPRA CATH CARE PROVIDED GENTLY. BED BATH DONE. KEPT PT CLEAN AND COMFORTABLE IN BED. WILL ENDORSED CONTINUITY OF CARE TO AM NURSE.
[2016-11-03] MEDS: RENAL NOVASOURCE 1,000 ML BOTTLE GT PRN (06:29)
[2016-11-03 06:43] LABS: BASOPHILS # (AUTO) 0.1 /CMM (0.0-0.2); BASOPHILS % (AUTO) 0.7 % (0.0-2.0); EOSINOPHILS # (AUTO) 1.1 /CMM (0.0-0.7); EOSINOPHILS % (AUTO) 6.7 % (0.0-6.0); HEMATOCRIT 27 % (39-51); HEMOGLOBIN 8.6 g/dL (13.5-17.5); LYMPHOCYTES # (AUTO) 0.8 /CMM (0.8-4.8); LYMPHOCYTES % (AUTO) 5.3 % (20.0-44.0); MEAN CORPUSCULAR HEMOGLOBIN 32 PG (26.0-33.0); MEAN CORPUSCULAR HGB CONC 32 g/dl (31.0-36.0); MEAN CORPUSCULAR VOLUME 101 fL (80-96); MONOCYTES # (AUTO) 2.8 /CMM (0.1-1.30); MONOCYTES % (AUTO) 17.7 % (2.0-12.0); NEUTROPHILS # (AUTO) 11.1 /CMM (1.8-8.9); NEUTROPHILS % (AUTO) 69.6 % (43.0-81.0); PLATELET COUNT (AUTO) 574 /CMM (150-450); RDW COEFFICIENT OF VARIATION 18.3 (11.5-15.0); RED BLOOD CELL COUNT(AUTO) 2.67 MIL/uL (4.5-6.0); WHITE BLOOD COUNT (AUTO) 15.9 K/uL (4.3-11.0)
[2016-11-03 07:15] LABS: CALCIUM, SERUM 10.8 mg/dL (8.5-10.1); POTASSIUM 5.5 mmol/L (3.5-5.1)
[2016-11-03 07:28] LABS: BAND % (MANUAL) 1 % (0.0-5.0); EOSINOPHILS % (MANUAL) 7 % (0-4); LYMPHOCYTES % (MANUAL) 10 % (16-48); MONOCYTES % (MANUAL) 10 % (0-11.0); NEUTROPHILS % (MANUAL) 72 (42-76)
[2016-11-03] MEDS: INSULIN LISPRO/ASPART 100 UNIT/ML CARTRIDGE SQ SCH ×3 (07:30→17:30)
[2016-11-03 08:00] VITALS: BP 111/70
--- NOTE | 2016-11-03 08:03 | NUR ---
RN INITIAL NOTES PT IS IN BED, RESTING COMFORTABLY, ON COOL AEROSOL FI02 12, AND TOLERATING WELL. A/O X2, PERIODS CONFUSION, ON CONTINUOUS FEEDING @45ML/HR, WILL HOLD FEEDING PRIOR TO ORAL GRAT FOR LUNCH ONLY. SUPRA PUBIC CATH IS DRAINING. COLOSTOMY INTACT, LEFT HAND IV SITE #22 IS FLUSHED AND PATENT. TURNED AND REPOSITIONED, SIDE RAILS UP, BED LOCKED AND IN LOWEST POSITION. CALL LIGHT WITHIN REACH, WILL CONTINUE TO MONITOR.
[2016-11-03 08:12] LABS: CARCINOEMBRYONIC AG (CEA) 4.5 ng/mL (0.0-4.7)
[2016-11-03] MEDS: GABAPENTIN 300 MG CAPSULE GT SCH ×3 (09:07→18:04)
[2016-11-03] MEDS: ZINC SULFATE 220 MG CAPSULE GT SCH (09:07)
[2016-11-03] MEDS: ASCORBIC ACID SYRUP 500 MG/5 ML UDC GT SCH ×2 (09:07→18:04)
[2016-11-03] MEDS: HYDROGEL DRESSING 90 GM TUBE TP SCH (09:08)
[2016-11-03] MEDS: METOPROLOL TARTRATE 25 MG TABLET PO SCH (09:08)
[2016-11-03] MEDS: POLYVINYL ALCOHOL 15 ML BOTTLE EACHEYE SCH ×2 (09:09→18:05)
[2016-11-03] MEDS: CLOTRIMAZOLE 1% 15 GM TUBE TP SCH ×2 (09:09→17:00)
[2016-11-03] MEDS: LACTOBACILLUS RHAMNOSUS GG 1 EACH CAP.SPRINK GT SCH ×2 (09:59→18:04)
[2016-11-03] MEDS: diphenhydrAMINE HCL 50 MG/ML VIAL IV PRN ×2 (10:00→19:40)
[2016-11-03] MEDS ORDERED: EPOETIN ALFA (10,000 UNIT) 10,000 UNIT/ML VIAL IV ONE (12:00)
[2016-11-03] MEDS ORDERED: EPOETIN ALFA (10,000 UNIT) 10,000 UNIT/ML VIAL IV PRN (14:49)
--- NOTE | 2016-11-03 15:05 | NUR ---
PER DR SALDANA, WE WILL HAVE DR DELILAH JOHNSON ([facility]) IN THE REGARDING PT SUPRAPUBIC CATH.
[2016-11-03 16:00] VITALS: BP 97/61
--- NOTE | 2016-11-03 17:00 | NUR ---
RN NOTES GAVE REPORT TO VIVIANA HERRON FOR CONTINUATION OF CARE
--- NOTE | 2016-11-03 19:20 | NUR ---
RN INITIAL NOTE PT RECEIVED IN NO ACUTE DISTRESS. ON COOL AEROSOL. A/O X 3 WITH CONFUSION AT TIMES. HAS A COLOSTOMY BAG. LEFT HAND IV G22. R CHEST PERMA CATH. GT FEEDING NOVASOURCE 45CC/HR RUNNING. WILL CONTINUE TO MONITOR.
--- NOTE | 2016-11-03 20:39 | NUR ---
EMT ARE HERE TO EARLY HEAD START TEACHER PATIENT TO TAKE TO [facility]. VITAL SIGNS WNL. ENDORSED CARE TO TRANSPORT, REPORT GIVEN TO RN AT OTHER LOCATION.
== END 2016-11-03 20:40 | disposition short-term general hospital (02) | DRG 682 ==
LOC: ER 11:19 → TELE1 12:44 → MEDSG1 10-31 09:51
PROVIDERS: ADMIT Internal Medicine Nephrology; ATTEND Internal Medicine Nephrology
PROC: 30233N1 Transfusion of Nonautologous Red Blood Cells into Peripheral Vein, Percutaneous Approach (ICD-10-PCS; principal; 2016-10-30)
PROC: 5A1D60Z (ICD-10-PCS; 2016-10-30)
DX: I12.0 Hypertensive chronic kidney disease with stage 5 chronic kidney disease or end stage renal disease (principal); N18.6 End stage renal disease; J96.10 Chronic respiratory failure, unspecified whether with hypoxia or hypercapnia; Z99.11 Dependence on respirator [ventilator] status; N39.0 Urinary tract infection, site not specified; G82.20 Paraplegia, unspecified; L97.329 Non-pressure chronic ulcer of left ankle with unspecified severity; Z99.2 Dependence on renal dialysis; Z93.0 Tracheostomy status; Z79.899 Other long term (current) drug therapy; Z86.14 Personal history of Methicillin resistant Staphylococcus aureus infection; Z87.440 Personal history of urinary (tract) infections; D75.89 Other specified diseases of blood and blood-forming organs; Q05.9 Spina bifida, unspecified; Z88.0 Allergy status to penicillin; Z88.2 Allergy status to sulfonamides; B96.89 Other specified bacterial agents as the cause of diseases classified elsewhere; R13.10 Dysphagia, unspecified; J84.10 Pulmonary fibrosis, unspecified; L98.8 Other specified disorders of the skin and subcutaneous tissue; E11.621 Type 2 diabetes mellitus with foot ulcer; E11.22 Type 2 diabetes mellitus with diabetic chronic kidney disease; D50.9 Iron deficiency anemia, unspecified; D63.1 Anemia in chronic kidney disease
CPT/HCPCS: 36415; 71010-TC; 80048-TC; 80053-TC; 80150; 80202-TC; 82306; 82378; 82728-TC; 82746; 82962-TC; 83010; 83540-TC; 83605-TC; 83615-TC; 83735-TC; 84100-TC; 84443-TC; 84550-TC; 85025-TC; 85045-TC; 85652-TC; 85730-TC; 86850-TC; 86921-TC; 87040-TC; 87081-TC; 87086-TC; 87186-TC; 90935-TC; 92526; 92611-TC; A4216; A4217; A4606; A6248; A6402; A6403; J0278; J0744; J0885; J1200; J1815; J3370; J7060; J8597; P9016-BL; Z7610

== ENCOUNTER 2017-01-11 11:52 | Emergency (ER) | payer MEDICARE, OTHER ==
[~2017-01-11] VITALS: Ht 165.1 cm; Wt 68.0 kg
--- NOTE | 2017-01-11 12:06 | NUR ---
CALLED [facility] FOR PICC LINE PLACEMENT, ETA 15MIN
--- NOTE | 2017-01-11 12:15 | NUR ---
BIB EMS FOR PICC LINE REPLACEMENT, NAD NOTED, VSS. WAITING FOR PICC LINE INSERTION.
--- NOTE | 2017-01-11 14:12 | NUR ---
VIVIANA SPARKS AT FOR PICC LINE INSERTION.
--- NOTE | 2017-01-11 15:09 | NUR ---
XRAY AT BS
--- NOTE | 2017-01-11 15:32 | NUR ---
CALLED [facility] FOR TRANSPORT ETA OF 1800 WAS GIVEN TRIP# [id number]
--- NOTE | 2017-01-11 17:45 | NUR ---
Patient is resting comfortably in bed with eyes closed. Easily aroused. VSS
--- NOTE | 2017-01-11 18:06 | NUR ---
Report given to evi Patricio from [facility]. subacute.
[2017-01-11 18:08] VITALS: BP 135/76
[2017-02-25] MEDS ORDERED: PANT40SU2 GT (09:12)
[2017-02-25] MEDS ORDERED: Hydrogel Dressing TP (09:12)
== END 2017-01-11 18:08 ==
LOC: ER 11:54
DX: Z95.9 Presence of cardiac and vascular implant and graft, unspecified (principal); E11.9 Type 2 diabetes mellitus without complications; G62.9 Polyneuropathy, unspecified; G82.20 Paraplegia, unspecified; I11.9 Hypertensive heart disease without heart failure; I51.7 Cardiomegaly; Z45.2 Encounter for adjustment and management of vascular access device; Z79.4 Long term (current) use of insulin; Z88.0 Allergy status to penicillin; Z93.0 Tracheostomy status
CPT/HCPCS: 36569; 71010; 99285; A4606; C1751

== ENCOUNTER 2017-01-24 18:53 | Inpatient (IN) | payer MEDICARE, OTHER ==
[~2017-01-24] VITALS: Ht 170.2 cm; Wt 52.6 kg
--- NOTE | 2017-01-24 19:00 | NUR ---
MICAH FROM [facility] DT EPISODE OF HEMATEMESIS SINCE LAST NIGHT. PATIENT ALSO NOTED WITH GREENISH OUTPUT FROM COLOSTOMY PATIENT APPEARS WEAK, NOTED TO BE VENT. TRACH DEPENDED. GT INTACT. SUPRA CATH NOTED, INDWELLING WELL. TAHIR PICC LINE NOTED. CONNECTED PT TO TELE MONITOR. VSS
[2017-01-24] MEDS ORDERED: PANTOPRAZOLE 40 MG VIAL ONE (19:06)
[2017-01-24 19:07] VITALS: BP 81/54
--- NOTE | 2017-01-24 19:20 | NUR ---
URINE SAMPLE SENT TO LAB
--- NOTE | 2017-01-24 19:20 | NUR ---
BLOOD SAMPLE SENT TO LAB
[2017-01-24 19:25] LABS: RDW COEFFICIENT OF VARIATION 21.1 (11.5-15.0)
[2017-01-24] MEDS ORDERED: ESCI10TA GT (19:28)
[2017-01-24] MEDS ORDERED: SEVE0.8P GT (19:28)
[2017-01-24] MEDS ORDERED: AMLO5TAB2 GT (19:28)
[2017-01-24] MEDS ORDERED: METO50TA3 PO (19:28)
[2017-01-24] MEDS ORDERED: INSU100I4 SQ (19:28)
[2017-01-24] MEDS ORDERED: LEVE100S GT (19:28)
[2017-01-24] MEDS ORDERED: OMEP20CA10 GT (19:28)
[2017-01-24] MEDS ORDERED: LORA1TAB GT (19:28)
--- NOTE | 2017-01-24 19:28 | NUR ---
REPORT GIVEN TO VIVIANA CATSAÑEDA FOR CLAUDIA
[2017-01-24 19:29] LABS: HEMATOCRIT 49 % (39-51); HEMOGLOBIN 15.2 g/dL (13.5-17.5); MEAN CORPUSCULAR HEMOGLOBIN 31 PG (26.0-33.0); MEAN CORPUSCULAR HGB CONC 31 g/dl (31.0-36.0); MEAN CORPUSCULAR VOLUME 99 fL (80-96); PLATELET COUNT (AUTO) 414 /CMM (150-450); RED BLOOD CELL COUNT(AUTO) 4.95 MIL/uL (4.5-6.0); WHITE BLOOD COUNT (AUTO) 26.9 K/uL (4.3-11.0)
[2017-01-24] MEDS ORDERED: IV NS 0.9% 1,000 ML BAG IV ONE ×2 (19:30→21:30)
[2017-01-24] MEDS ORDERED: PANTOPRAZOLE 40 MG VIAL IV ONE (19:30)
[2017-01-24 19:42] LABS: ALBUMIN 3.2 g/dL (3.4-5.0); BILIRUBIN,DIRECT 0.2 mg/dL (0.0-0.2); BILIRUBIN,TOTAL 0.6 mg/dL (0.2-1.0); CALCIUM, SERUM 11.1 mg/dL (8.5-10.1); CREATININE 6.1 mg/dL (0.6-1.3); TOTAL PROTEIN, SERUM 10.1 g/dL (6.4-8.2)
[2017-01-24 19:43] LABS: TROPONIN I 0.037 ng/mL (0.00-0.056)
[2017-01-24 19:44] LABS: INR 1.09 (0.87-1.13); PROTHROMBIN TIME 11.3 SECS (9.5-12.7)
--- NOTE | 2017-01-24 19:58 | NUR ---
PAGED DR TEJEDA FOR ADMISSION
[2017-01-24] MEDS ORDERED: LEVOFLOXACIN 750 MG /D5W 150ML 150 ML IV ONE ×2 (20:00→20:12)
[2017-01-24 20:32] LABS: APPEARANCE,URINE Turbid (CLEAR); BILIRUBIN,URINE Negative (NEGATIVE); BLOOD, URINE Moderate Ery/uL (NEGATIVE); COLOR,URINE Brown (YELLOW); KETONES,URINE Negative (NEGATIVE); LEUKOCYTE ESTERASE ,URINE Large (NEGATIVE); NITRITE, URINE Negative (NEGATIVE); PH,URINE 8.5 (5.0-8.0); PROTEIN,URINE >=300 mg/dl (NEGATIVE); UGLUCOSE Negative (NEGATIVE); UROBILINOGEN,URINE 0.2 EU/dL (0.2)
[2017-01-24 20:39] VITALS: BP 72/46
--- NOTE | 2017-01-24 20:45 | NUR ---
RN NOTES REPORT GIVEN TO VIVIANA LEACH FOR CLAUDIA
[2017-01-24 20:52] LABS: BACTERIA,URINE Many /HPF (None Seen); SQUAMOUS EPITHELIAL CELL,UR Few /HPF (None Seen); WBC,URINE TOO NUMEROUS TO COUN /HPF (0-3)
--- NOTE | 2017-01-24 21:08 | NUR ---
REPAGED DR TEJEDA FOR ADMISSION
[2017-01-24 21:56] LABS: BAND % (MANUAL) 2 % (0.0-5.0); LYMPHOCYTES % (MANUAL) 2 % (16-48); MONOCYTES % (MANUAL) 11 % (0-11.0); NEUTROPHILS % (MANUAL) 82 (42-76); PROMYELOCYTES % 1 % (0-0); REACTIVE LYMPHOCYTES 2 % (0-0)
--- NOTE | 2017-01-24 22:00 | NUR ---
received pt from ER, alert, does not follow commands, low extremities rigid and flaccid, SR, on the vent, lungs partially congested, no edema, GT clamped, suprapubic cath, R ileostomy, bag intact, 1L bolus given, 2nd is running, v/s stable, no pain, pt turned and repositioned, multiple excoriations.
[2017-01-24 22:30] VITALS: BP 109/67
[2017-01-24] MEDS ORDERED: ACETAMINOPHEN 325 MG TABLET PO PRN (22:30)
[2017-01-24] MEDS ORDERED: MAGNESIUM HYDROXIDE 30 ML UDC PO PRN (22:30)
[2017-01-24] MEDS ORDERED: LORAZEPAM 1 MG TABLET GT PRN (22:30)
[2017-01-24] MEDS ORDERED: RENAL NOVASOURCE 1,000 ML BOTTLE GT PRN (22:30)
[2017-01-24] MEDS ORDERED: ZOLPIDEM TARTRATE 5 MG TABLET PO PRN (22:30)
[2017-01-24] MEDS ORDERED: PIPERACILLIN /TAZOBACTAM 3.375 G VIAL IV ONE (23:14)
[2017-01-24] MEDS: PIPERACILLIN /TAZOBACTAM 3.375 G in IV D5W 50 ML IV SCH (23:43)
[2017-01-25] VITALS: BP 101/63
[2017-01-25] MEDS: IV NS 0.9% 1,000 ML IV PRN ×2 (00:44→16:26)
--- NOTE | 2017-01-25 01:00 | NUR ---
mrsa swab sent
[2017-01-25] MEDS ORDERED: MEROPENEM 500 MG VIAL IV ONE (03:46)
[2017-01-25] MEDS ORDERED: PIPERACILLIN /TAZOBACTAM 3.375 G VIAL IV ONE (03:46)
[2017-01-25 04:00] VITALS: BP 93/63
--- NOTE | 2017-01-25 04:06 | NUR ---
pt is resting in the bed, v/s stable, no pain, tolerates feeding, pt cleaned, changed and repositioned q2hrs.
[2017-01-25] MEDS ORDERED: MEROPENEM 500 MG in IV NS 0.9% 50 ML IV SCH (05:00)
[2017-01-25] MEDS: PIPERACILLIN /TAZOBACTAM 3.375 G in IV D5W 50 ML IV SCH (05:01)
--- NOTE | 2017-01-25 07:15 | NUR ---
RN INITIAL NOTES RECEIVED PT ON [facility] VENT: AC15, TV500, FI02 35%, PEEP+5. TRACH IN PLACE NO RESPIRATORY DISTRESS NOTED. NO SOB NOTED. NO SIGNS OF PAIN NOTED. TAHIR PICC LINE IN PLACE. RIGHT CHEST WALL HD CATH INTACT. GT IN PLACE. TOLERATING NOVASOURCE AT 50ML/HR. NO RESIDUAL NOTED. BLE ELEVATED. PT COMFORTABLE. WILL CONTINUE TO MONITOR.
[2017-01-25 07:36] LABS: BASOPHILS # (AUTO) 0.1 /CMM (0.0-0.2); BASOPHILS % (AUTO) 0.3 % (0.0-2.0); EOSINOPHILS # (AUTO) 0.2 /CMM (0.0-0.7); EOSINOPHILS % (AUTO) 1.3 % (0.0-6.0); HEMATOCRIT 43 % (39-51); HEMOGLOBIN 13.5 g/dL (13.5-17.5); LYMPHOCYTES # (AUTO) 0.9 /CMM (0.8-4.8); LYMPHOCYTES % (AUTO) 4.6 % (20.0-44.0); MEAN CORPUSCULAR HEMOGLOBIN 31 PG (26.0-33.0); MEAN CORPUSCULAR HGB CONC 31 g/dl (31.0-36.0); MEAN CORPUSCULAR VOLUME 100 fL (80-96); MONOCYTES # (AUTO) 1.9 /CMM (0.1-1.30); MONOCYTES % (AUTO) 9.9 % (2.0-12.0); NEUTROPHILS # (AUTO) 15.9 /CMM (1.8-8.9); NEUTROPHILS % (AUTO) 83.9 % (43.0-81.0); PLATELET COUNT (AUTO) 410 /CMM (150-450); RDW COEFFICIENT OF VARIATION 22.8 (11.5-15.0); RED BLOOD CELL COUNT(AUTO) 4.32 MIL/uL (4.5-6.0)
[2017-01-25 07:43] LABS: CREATININE 6.2 mg/dL (0.6-1.3); MAGNESIUM 2.8 mg/dL (1.8-2.4); PHOSPHORUS 6.9 mg/dL (2.5-4.9); POTASSIUM 4.5 mmol/L (3.5-5.1)
[2017-01-25 08:00] VITALS: BP_SYST 102; BP_SYST 79; BP_DIAS 44; BP_DIAS 64
[2017-01-25] MEDS: VIT B CMPLX 3/FA/VIT C/BIOTIN 1 TAB TABLET GT SCH (08:28)
[2017-01-25] MEDS: METOCLOPRAMIDE HCL 10 MG TABLET GT SCH ×2 (08:28→20:59)
[2017-01-25] MEDS: POLYVINYL ALCOHOL 15 ML BOTTLE OP SCH ×3 (08:28→16:27)
[2017-01-25] MEDS: SEVELAMER CARBONATE 0.8 GM POWD.PACK GT SCH ×3 (08:28→17:05)
[2017-01-25] MEDS: ZINC SULFATE 220 MG CAPSULE GT SCH (08:28)
[2017-01-25] MEDS: GABAPENTIN 300 MG CAPSULE GT SCH ×3 (08:28→16:26)
[2017-01-25] MEDS: LEVETIRACETAM SOL (5 ML) 100 MG/ML UDC GT SCH ×2 (08:28→16:25)
[2017-01-25] MEDS: ESCITALOPRAM OXALATE (10 MG) 10 MG TABLET GT SCH (08:28)
[2017-01-25] MEDS ORDERED: FEE PK DOSING 1 MIN EA MC ONE (08:41)
[2017-01-25] MEDS ORDERED: VANCOMYCIN 1 GM in IV D5W 250 ML IV ONE (09:00)
--- NOTE | 2017-01-25 09:49 | NUR ---
WOUND CARE CONSULT: PT PRESENTS WITH STAGE 2 ULCERS TO SACRUM (MULTIPLE OPEN AREAS WITH SCARRING IN CENTER), STAGE 2 ULCER TO LEFT LOWER BUTTOCK AND ESCHAR WITH SCARRING TO LEFT LATERAL ANKLE, ALL PRESENT ON ADMISSION. ALL SKIN PROTECTION AND WOUND RECOMMENDATIONS DISCUSSED WITH NURSING STAFF. PT ON [place] ISOFLEX LOW AIRLOSS BED. PT HAS ILEOSTOMY AND SUPRAPUBIC CATH. SOME REDNESS NOTED TO SKIN NEAR ILEOSTOMY POUCH. DEFER TO MD. POUCH IS PATENT. ALL SKIN PROTECTION MEASURES IN PLACE. PT ON VENTILATOR. WILL SEE PRN. IN AGREEMENT WITH PLAN OF CARE. Addendum: 01/25/17 at 0954 by JB SENIOR WNDNU Amended: Links added.
--- NOTE | 2017-01-25 09:50 | NUR ---
RN NOTES SEEN AND EXAMINED BY DR. GONCALVES. AWARE OF PT'S STATUS, MEDICATIONS, CURRENT LAB VALUES AND IMAGING STUDIES. PT ON GTF AND IVF. TOLERATING WELL. ORDERED DC PEEP. WILL CONTINUE TO MONITOR.
[2017-01-25] MEDS ORDERED: HYDROGEL DRESSING 90 GM TUBE TP PRN (10:00)
[2017-01-25 10:29] LABS: BAND % (MANUAL) 1 % (0.0-5.0); LYMPHOCYTES % (MANUAL) 11 % (16-48); MONOCYTES % (MANUAL) 3 % (0-11.0); NEUTROPHILS % (MANUAL) 85 (42-76)
[2017-01-25] MEDS: HYDROGEL DRESSING 90 GM TUBE TP SCH (11:12)
[2017-01-25 12:00] VITALS: BP 97/56
--- NOTE | 2017-01-25 13:10 | NUR ---
VIVIANA NOTES DIALYSIS STARTED. NO RESPIRATORY DISTRESS NOTED. NO SOB NOTED. DENIES ANY PAIN. WILL MONITOR Addendum: 01/25/17 at 1515 by JUAN BECERRA RN 1513 DIALYSIS ENDED. REMOVED 2L. TOLERATED WELL. NO RESPIRATORY DISTRESS NOTED. NO SOB NOTED. WILL MONITOR. Addendum: 01/25/17 at 1546 by JUAN BECERRA RN 1520 SPOKE WITH DOREEN (PHARMACIST) REGARDING VANCO POST HD. PT GIVEN VANCO 1GM IVPB AT 0900 AND HAS ORDER FOR VANCO POST HD. PER DOREEN, DO NOT GIVE VANCOMYCIN POST HD. WILL TAKE VANCO LEVEL AND WILL DOSE PER LEVEL.
[2017-01-25] MEDS: PANTOPRAZOLE 40 MG VIAL IV SCH (13:11)
[2017-01-25 16:00] VITALS: BP 107/70
[2017-01-25] MEDS: RENAL NOVASOURCE 1,000 ML BOTTLE GT PRN (16:25)
[2017-01-25] MEDS: NYSTATIN CREAM 15 GM TUBE TP SCH (18:35)
--- NOTE | 2017-01-25 18:42 | NUR ---
RN CLOSING NOTES NO SIGNIFICANT CHANGE NOTED. NO CHANGE IN LOC NOTED. NO HEMATEMESIS NOTED. TOLERATING VENT. NO RESPIRATORY DISTRESS NOTED. DENIES ANY PAIN. PICC LINE IN PLACE. TOLERATING IVF WELL. GT IN PLACE. TOLERATING GTF WELL. NO RESIDUAL NOTED. COLOSTOMY INTACT. SUPRAPUBIC CATH IN PLACE. KEPT CLEAN AND DRY. REPOSITIONED Q2. KEPT BLE ELEVATED. PT COMFORTABLE. WILL ENDORSE FOR CONTINUITY OF CARE.
--- NOTE | 2017-01-25 19:30 | NUR ---
RN INITIAL NOTES RECEIVED PT AWAKE ON BED, A/O X3, ABLE TO MOUTH WORDS AND FOLLOW COMMANDS. CURRENTLY ON VENT AC 15, TV500, 35% FIO2, PEEP 0, SATURATING WELL, NO S/S OF RESP DISTRESS. SR ON THE MONITOR, HR 80'S. COLOSTOMY INTACT. SUPRAPUBIC CATHETER IS NOTED. RIGHT UPPER ARM DOUBLE LUMEN PICC WITH NS @ 60MLS/HR, FLUSHED AND PATENT, NO S/S OF INFILTRATION/INFECTION, DRESSING CDI. RIGHT CHEST WALL HD CATH INTACT. BED LOW AND LOCKED, SIDERAILS UP, CALL LIGHT WITHIN REACH. WILL MONITOR
[2017-01-25 20:00] VITALS: BP 94/60
[2017-01-26] VITALS: BP 99/56
[2017-01-26 04:00] VITALS: BP_SYST 96; BP_SYST 99; BP_DIAS 54
[2017-01-26] MEDS: MEROPENEM 500 MG in IV NS 0.9% 50 ML IV SCH (04:56)
[2017-01-26] MEDS: IV NS 0.9% 1,000 ML IV PRN (04:57)
--- NOTE | 2017-01-26 06:45 | NUR ---
RN CLOSING NOTES PT REMAINS STABLE OF THE MOMENT. ALL DUE MEDS GIVEN, AM CARE PROVIDED. WILL ENDORSE CONTINUITY OF CARE TO AM RN
[2017-01-26 07:15] LABS: EOSINOPHILS # (AUTO) 0.8 /CMM (0.0-0.7); EOSINOPHILS % (AUTO) 6.6 % (0.0-6.0); HEMATOCRIT 39 % (39-51); HEMOGLOBIN 12.2 g/dL (13.5-17.5); LYMPHOCYTES # (AUTO) 0.6 /CMM (0.8-4.8); LYMPHOCYTES % (AUTO) 4.7 % (20.0-44.0); MEAN CORPUSCULAR HEMOGLOBIN 31 PG (26.0-33.0); MEAN CORPUSCULAR HGB CONC 31 g/dl (31.0-36.0); MEAN CORPUSCULAR VOLUME 99 fL (80-96); MONOCYTES # (AUTO) 1.8 /CMM (0.1-1.30); MONOCYTES % (AUTO) 14.2 % (2.0-12.0); NEUTROPHILS # (AUTO) 9.3 /CMM (1.8-8.9); NEUTROPHILS % (AUTO) 74.5 % (43.0-81.0); PLATELET COUNT (AUTO) 365 /CMM (150-450); RDW COEFFICIENT OF VARIATION 21.9 (11.5-15.0); RED BLOOD CELL COUNT(AUTO) 3.94 MIL/uL (4.5-6.0); WHITE BLOOD COUNT (AUTO) 12.4 K/uL (4.3-11.0)
--- NOTE | 2017-01-26 07:30 | NUR ---
RN NOTES RECEIVED PT RESTING IN BED, AWAKE A/O X3, ABLE TO MOUTH WORDS AND FOLLOW COMMANDS. CURRENTLY ON VENT AC 15, TV500, 35% FIO2, PEEP 0, SATURATING WELL, NO S/S OF RESP DISTRESS. SUCTIONED FOR AIRWAY CLERANCE. SR ON TELE MONITOR, HR 70'S. COLOSTOMY INTACT. SUPRAPUBIC CATHETER NOTED. RIGHT UPPER ARM DOUBLE LUMEN PICC WITH IVF RUNNING NS @ 60MLS/HR, FLUSHED AND PATENT, NO S/S OF INFILTRATION/INFECTION, DRESSING CDI. RIGHT CHEST WALL HD CATH INTACT. BED LOW AND LOCKED, HOB ELEVATED, REPOSITIONED FOR COMFORT. SIDERAILS UP, CALL LIGHT WITHIN REACH. WILL MONITOR
[2017-01-26 07:31] LABS: ALBUMIN 2.4 g/dL (3.4-5.0); BILIRUBIN,TOTAL 0.3 mg/dL (0.2-1.0); CREATININE 5.1 mg/dL (0.6-1.3); MAGNESIUM 2.4 mg/dL (1.8-2.4); POTASSIUM 4.1 mmol/L (3.5-5.1); TOTAL PROTEIN, SERUM 8.1 g/dL (6.4-8.2)
[2017-01-26 08:00] VITALS: BP 97/63
[2017-01-26] MEDS: LEVETIRACETAM SOL (5 ML) 100 MG/ML UDC GT SCH ×2 (09:22→17:17)
[2017-01-26] MEDS: ESCITALOPRAM OXALATE (10 MG) 10 MG TABLET GT SCH (09:23)
[2017-01-26] MEDS: HYDROGEL DRESSING 90 GM TUBE TP SCH (09:23)
[2017-01-26] MEDS: ZINC SULFATE 220 MG CAPSULE GT SCH (09:23)
[2017-01-26] MEDS: METOCLOPRAMIDE HCL 10 MG TABLET GT SCH ×2 (09:23→21:34)
[2017-01-26] MEDS: GABAPENTIN 300 MG CAPSULE GT SCH ×3 (09:23→17:17)
[2017-01-26] MEDS: VIT B CMPLX 3/FA/VIT C/BIOTIN 1 TAB TABLET GT SCH (09:23)
[2017-01-26] MEDS: NYSTATIN CREAM 15 GM TUBE TP SCH ×2 (09:25→17:17)
[2017-01-26] MEDS: POLYVINYL ALCOHOL 15 ML BOTTLE OP SCH ×2 (09:25→17:17)
[2017-01-26] MEDS: SEVELAMER CARBONATE 0.8 GM POWD.PACK GT SCH ×3 (09:29→17:17)
[2017-01-26 12:00] VITALS: BP 110/67
--- NOTE | 2017-01-26 12:15 | NUR ---
RN NOTES GTF TURNED OFF, PALCED PT ON NPO FOR EGD PER DR XIONG
[2017-01-26 12:32] LABS: BAND % (MANUAL) 1 % (0.0-5.0); EOSINOPHILS % (MANUAL) 5 % (0-4); MONOCYTES % (MANUAL) 10 % (0-11.0); REACTIVE LYMPHOCYTES 2 % (0-0)
[2017-01-26 12:48] LABS: NEUTROPHILS % (MANUAL) 82 (42-76)
[2017-01-26] MEDS: PANTOPRAZOLE 40 MG VIAL IV SCH (13:15)
[2017-01-26 16:00] VITALS: BP 117/62
[2017-01-26 20:00] VITALS: BP 97/58
--- NOTE | 2017-01-26 20:16 | NUR ---
RN INITIAL NOTE; PT IN THE BED RESTING WITHOUT ANY DISTRESS , PT IS A/O X 2 , CONFUSE , MOUTH WORDS , FOLLOWS COMMANDS . ON TRACH CONNECTED TO VENT . VENT SETTING ORDERED . TELE MONITOR SHOWING SR 94 . TAHIR PICC LINE INTACT AND PATENT WITH CONTINUE NS @ 60 ML/HR . DENIED ANY PAIN AT THIS TIME . GT INTACT AND PATENT , NPO FOR POSS EGD TOMORROW. ASPIRATION PRECAUTION APPLIED. COLOSTOMY INTACT . SUPRAPUBIC CATHETER INTACT AND PATENT AND DRAINING CLEAR YELLOWISH URINE. BED IN THE LOWEST/LOCKED POSITION , SAFETY MEASURES APPLIED. WILL TURN/REPOSITION Q2H , WILL CONTINUE TO MONITOR .
[2017-01-27] VITALS (7 sets, daily range): BP systolic 91–131; BP diastolic 41–74
[2017-01-27] MEDS: MEROPENEM 500 MG in IV NS 0.9% 50 ML IV SCH (05:33)
[2017-01-27] MEDS: IV NS 0.9% 1,000 ML IV PRN (05:38)
[2017-01-27 06:44] LABS: BASOPHILS % (AUTO) 0.5 % (0.0-2.0); EOSINOPHILS # (AUTO) 0.8 /CMM (0.0-0.7); EOSINOPHILS % (AUTO) 8.5 % (0.0-6.0); HEMATOCRIT 36 % (39-51); HEMOGLOBIN 11.4 g/dL (13.5-17.5); LYMPHOCYTES # (AUTO) 0.4 /CMM (0.8-4.8); LYMPHOCYTES % (AUTO) 4.9 % (20.0-44.0); MEAN CORPUSCULAR HEMOGLOBIN 31 PG (26.0-33.0); MEAN CORPUSCULAR HGB CONC 32 g/dl (31.0-36.0); MEAN CORPUSCULAR VOLUME 99 fL (80-96); MONOCYTES # (AUTO) 1.7 /CMM (0.1-1.30); MONOCYTES % (AUTO) 18.5 % (2.0-12.0); NEUTROPHILS # (AUTO) 6.1 /CMM (1.8-8.9); NEUTROPHILS % (AUTO) 67.6 % (43.0-81.0); PLATELET COUNT (AUTO) 339 /CMM (150-450); RDW COEFFICIENT OF VARIATION 21.2 (11.5-15.0); RED BLOOD CELL COUNT(AUTO) 3.66 MIL/uL (4.5-6.0)
[2017-01-27 06:54] LABS: ALBUMIN 2.3 g/dL (3.4-5.0); BILIRUBIN,TOTAL 0.5 mg/dL (0.2-1.0); CALCIUM, SERUM 10.1 mg/dL (8.5-10.1); MAGNESIUM 2.4 mg/dL (1.8-2.4); PHOSPHORUS 5.4 mg/dL (2.5-4.9); POTASSIUM 4.4 mmol/L (3.5-5.1); TOTAL PROTEIN, SERUM 7.6 g/dL (6.4-8.2)
--- NOTE | 2017-01-27 06:57 | NUR ---
RN EOS NOTE; PT REMAINED STABLE DURING THE SHIFT. NO ANY DISTRESS NOTED. PT IS NPO STATUS FOR EGD . IVF TOLERATED WELL. KEPT CLEAN AND DRY , TURNED AND REPOSITIONED Q2H AND NEEDED . WILL ENDORSE TO NEXT SHIFT RN FOR CONTINUITY OF CARE .
--- NOTE | 2017-01-27 07:15 | NUR ---
RN NOTES RECEIVED PATIENT AOX2-3 , DENIES SOB AND DISCOMFORT , NOT IN ACUTE DISTRESS , SPO2 OF 100% VIA MECHANICAL VENTILATOR SETTINGS ORDERED , SR 85 ON TELE MONITOR , ILEOSTOMY DRAINING WELL WITH DARK GREEN LIQUID OUTPUT , SUPRAPUBIC CATHETER DRAINING VIA GRAVITY WITH CLEAR YELLOW URINE , TAHIR PICC LINE PATENT AND INTACT WITH NS @ 40ML/HR INFUSING WELL , R CHEST WALL HD CATH C/D/I , HOB # 35 , WILL CONTINUE TO MONITOR
[2017-01-27] MEDS: SEVELAMER CARBONATE 0.8 GM POWD.PACK GT SCH ×3 (08:00→17:03)
[2017-01-27] MEDS: VIT B CMPLX 3/FA/VIT C/BIOTIN 1 TAB TABLET GT SCH (08:27)
[2017-01-27] MEDS: LEVETIRACETAM SOL (5 ML) 100 MG/ML UDC GT SCH ×2 (08:27→16:43)
[2017-01-27] MEDS: METOCLOPRAMIDE HCL 10 MG TABLET GT SCH ×2 (08:27→22:28)
[2017-01-27] MEDS: ESCITALOPRAM OXALATE (10 MG) 10 MG TABLET GT SCH (08:27)
[2017-01-27] MEDS: GABAPENTIN 300 MG CAPSULE GT SCH ×3 (08:27→16:43)
[2017-01-27] MEDS: ZINC SULFATE 220 MG CAPSULE GT SCH (08:27)
--- NOTE | 2017-01-27 08:28 | NUR ---
RN NOTES GT MEDS HELD , PT IS NPO STATUS FOR EGD TODAY , WILL CONTINUE TO MONITOR
[2017-01-27] MEDS: POLYVINYL ALCOHOL 15 ML BOTTLE OP SCH ×2 (08:45→17:06)
[2017-01-27] MEDS: HYDROGEL DRESSING 90 GM TUBE TP SCH (08:45)
[2017-01-27] MEDS: NYSTATIN CREAM 15 GM TUBE TP SCH ×2 (08:46→17:06)
[2017-01-27 09:54] LABS: BAND % (MANUAL) 4 % (0.0-5.0); EOSINOPHILS % (MANUAL) 5 % (0-4); LYMPHOCYTES % (MANUAL) 2 % (16-48); MONOCYTES % (MANUAL) 13 % (0-11.0); NEUTROPHILS % (MANUAL) 76 (42-76)
--- NOTE | 2017-01-27 11:09 | NUR ---
RN NOTES TELEPHONE ORDER RECEIVED FOR PTT , PT, INR , UNDER DR SALDANA FOR EGD . ORDERS CARRIED OUT
--- NOTE | 2017-01-27 11:39 | NUR ---
RN NOTES SEEN AND EVALUATED BY DR SALDANA , DISCUSSED LABS , NPO FOR EGD TODAY , NO ACTIVE BLEEDING NOTED , T.O RECEIVED FOR AM LABS TOMORROW .
[2017-01-27 11:56] LABS: INR 0.99 (0.87-1.13); PROTHROMBIN TIME 10.3 SECS (9.5-12.7)
--- NOTE | 2017-01-27 12:15 | NUR ---
RN NOTES GT MEDS SCHEDULED @ 1300 HELD , PT IS NPO FOR EGD
[2017-01-27] MEDS: PANTOPRAZOLE 40 MG VIAL IV SCH (13:59)
--- NOTE | 2017-01-27 19:40 | NUR ---
radiotelephone technical operator notes pts on bed hemodialysis tx on progress, dialysis nurse at bedside, v/s stable afebrile.
--- NOTE | 2017-01-27 20:00 | NUR ---
telemetry technician notes received pts on bed awake alert and responsive , on vent dependent ac settings well tolerated .hob elevated for aspiration precaution , suction secretion q2hrs and prn. pts on tele sr-82 on the monitor sating 100%, pts remains on ventilator ac settings well tolerated.v/s stable afebrile , no sob no distress no facial grimaces noted , pts on carina picc line double lumen with ivf of ns at 40cc/hr infusing well. , suprapubic cath intact and patent draining with yellowish urine output .ileostomy tube patent draining with liquid dark greenish output. all needs attended too, call light within reach all due meds given as ordered m kept pts clean dry and comfortable.
[2017-01-27] MEDS: SUCRALFATE 1 G/10 ML UDC PO SCH (22:28)
[2017-01-27] MEDS: VANCOMYCIN 500 MG in IV D5W 100 ML IV PRN (22:29)
[2017-01-27] MEDS: ONDANSETRON HCL/PF 4 MG/2 ML VIAL IVP PRN (23:33)
[2017-01-28] VITALS (7 sets, daily range): BP systolic 93–131; BP diastolic 57–83
[2017-01-28] MEDS: RENAL NOVASOURCE 1,000 ML BOTTLE GT PRN (01:19)
[2017-01-28] MEDS: MEROPENEM 500 MG in IV NS 0.9% 50 ML IV SCH (05:09)
[2017-01-28 06:30] LABS: EOSINOPHILS # (AUTO) 0.9 /CMM (0.0-0.7); EOSINOPHILS % (AUTO) 8.6 % (0.0-6.0); HEMATOCRIT 39 % (39-51); HEMOGLOBIN 12.3 g/dL (13.5-17.5); LYMPHOCYTES # (AUTO) 0.3 /CMM (0.8-4.8); LYMPHOCYTES % (AUTO) 2.8 % (20.0-44.0); MEAN CORPUSCULAR HEMOGLOBIN 31 PG (26.0-33.0); MEAN CORPUSCULAR HGB CONC 32 g/dl (31.0-36.0); MEAN CORPUSCULAR VOLUME 98 fL (80-96); MONOCYTES # (AUTO) 1.5 /CMM (0.1-1.30); MONOCYTES % (AUTO) 14.2 % (2.0-12.0); NEUTROPHILS % (AUTO) 74.4 % (43.0-81.0); PLATELET COUNT (AUTO) 334 /CMM (150-450); RDW COEFFICIENT OF VARIATION 20.9 (11.5-15.0); RED BLOOD CELL COUNT(AUTO) 3.97 MIL/uL (4.5-6.0); WHITE BLOOD COUNT (AUTO) 10.7 K/uL (4.3-11.0)
--- NOTE | 2017-01-28 06:41 | NUR ---
telephone operator receptionist notes pts on bed awake and responsive , remains on vent tolerated well , no significant change noted , will endorse to rn day shift for continuity of care.
[2017-01-28 06:56] LABS: CALCIUM, SERUM 9.7 mg/dL (8.5-10.1); CREATININE 4.9 mg/dL (0.6-1.3); MAGNESIUM 2.2 mg/dL (1.8-2.4); PHOSPHORUS 4.1 mg/dL (2.5-4.9); POTASSIUM 4.5 mmol/L (3.5-5.1)
--- NOTE | 2017-01-28 07:20 | NUR ---
RN NOTES RECV'D REPORT FROM NOC RN. PT NON VERBAL OBTUNDED. VENT TRACH. NO RESP DISTRESS. TUBE FEED 50/ML HR. SUPRAPUBIC VILLA PATENT LIGHT YELLOW URINE NO DEPENDENT LOOPS, BAG HUNG BELOW BLADDER. RUE PICC RUNNING NS @40ML/HR. RLQ COLOSTOMY LIQUID CHOCOLATE BROWN STOOL. BED IN LOW LOCKED POSITION. SIDE RAILS X 3. CALL LIGHT IN REACH. WILL CONT TO MONITOR CLOSELY.
[2017-01-28] MEDS: GABAPENTIN 300 MG CAPSULE GT SCH ×3 (08:36→17:10)
[2017-01-28] MEDS: ZINC SULFATE 220 MG CAPSULE GT SCH (08:37)
[2017-01-28] MEDS: VIT B CMPLX 3/FA/VIT C/BIOTIN 1 TAB TABLET GT SCH (08:37)
[2017-01-28] MEDS: ESCITALOPRAM OXALATE (10 MG) 10 MG TABLET GT SCH (08:37)
[2017-01-28] MEDS: SUCRALFATE 1 G/10 ML UDC PO SCH ×3 (08:37→17:10)
[2017-01-28] MEDS: SEVELAMER CARBONATE 0.8 GM POWD.PACK GT SCH ×3 (08:37→17:11)
[2017-01-28] MEDS: METOCLOPRAMIDE HCL 10 MG TABLET GT SCH ×2 (08:37→21:32)
[2017-01-28] MEDS: LEVETIRACETAM SOL (5 ML) 100 MG/ML UDC GT SCH ×2 (08:37→17:10)
[2017-01-28] MEDS: NYSTATIN CREAM 15 GM TUBE TP SCH ×2 (08:38→17:11)
[2017-01-28] MEDS: HYDROGEL DRESSING 90 GM TUBE TP SCH (08:38)
[2017-01-28] MEDS: POLYVINYL ALCOHOL 15 ML BOTTLE OP SCH ×2 (08:38→17:10)
[2017-01-28] MEDS: PANTOPRAZOLE 40 MG VIAL IV SCH (12:49)
--- NOTE | 2017-01-28 17:57 | NUR ---
RN CLOSING NOTES NO COMPLICATIONS TODAY. 50ML URINE OUTPUT. HOB ELEVATED. TOLERATING TUBE FEED NO RESIDUALS. VENT TRACH SETTINGS UNCHANGED. NON LABORED RESP. SR TELE. OSTOMY POUCH EMPTIED X 2. CALL LIGHT IN REACH. BED IN LOW LOCKED POSITION. SIDE RAILS X 2. WILL ENDORSE TO NOC RN.
[2017-01-28] MEDS ORDERED: DOSING PER PHARMACY-AMIKACI IV XX PRN (18:00)
[2017-01-28] MEDS ORDERED: FEE PK DOSING 1 MIN EA MC ONE (18:03)
[2017-01-28] MEDS ORDERED: AMIKACIN 350 MG in IV D5W 100 ML IV ONE (18:30)
--- NOTE | 2017-01-28 18:58 | NUR ---
PICC D/C'D PER ORDERS. TIP SENT TO LAB. 20G RH.
[2017-01-29] VITALS (7 sets, daily range): BP systolic 92–138; BP diastolic 56–89
[2017-01-29] MEDS: MEROPENEM 500 MG in IV NS 0.9% 50 ML IV SCH (05:00)
--- NOTE | 2017-01-29 07:30 | NUR ---
RN INITIAL NOTE Received patient received patient resting in bed, a=O x2, verbalizes simple needs, follows simple commands. denies pain. breathing stable with mech vent at prescribed setting. minimal tracheal secretions at this time. GT infusing novasouce @ 50 ml/hr. no residuals. GT stoma with small amount of drainage, color of feeding and blood- cleansed. suprapubic catheter patent, draining urine, stoma site cleansed as well. L wrist IV with NS @ 40ml/hr, no complications with IV site. educated on how to use call light
[2017-01-29] MEDS: POLYVINYL ALCOHOL 15 ML BOTTLE OP SCH ×2 (09:00→16:19)
[2017-01-29] MEDS: NYSTATIN CREAM 15 GM TUBE TP SCH ×2 (09:00→16:19)
[2017-01-29] MEDS: HYDROGEL DRESSING 90 GM TUBE TP SCH (09:00)
[2017-01-29 10:35] LABS: CALCIUM, SERUM 10.5 mg/dL (8.5-10.1); CREATININE 5.9 mg/dL (0.6-1.3); MAGNESIUM 2.5 mg/dL (1.8-2.4); PHOSPHORUS 5.3 mg/dL (2.5-4.9); POTASSIUM 4.3 mmol/L (3.5-5.1)
[2017-01-29] MEDS: SEVELAMER CARBONATE 0.8 GM POWD.PACK GT SCH ×3 (10:52→17:18)
[2017-01-29] MEDS: VIT B CMPLX 3/FA/VIT C/BIOTIN 1 TAB TABLET GT SCH (10:53)
[2017-01-29] MEDS: GABAPENTIN 300 MG CAPSULE GT SCH ×3 (10:53→16:18)
[2017-01-29] MEDS: LEVETIRACETAM SOL (5 ML) 100 MG/ML UDC GT SCH ×2 (10:53→16:18)
[2017-01-29] MEDS: METOCLOPRAMIDE HCL 10 MG TABLET GT SCH ×2 (10:54→22:08)
[2017-01-29] MEDS: ESCITALOPRAM OXALATE (10 MG) 10 MG TABLET GT SCH (10:54)
[2017-01-29] MEDS: SUCRALFATE 1 G/10 ML UDC PO SCH ×3 (10:54→16:18)
[2017-01-29] MEDS: ZINC SULFATE 220 MG CAPSULE GT SCH (10:54)
[2017-01-29] MEDS: IV NS 0.9% 1,000 ML IV PRN (10:58)
--- NOTE | 2017-01-29 11:00 | NUR ---
Medication note The medication that was noted as non-administered during past shift because e-mar cleared for up-to-date administration [facility]. medication administration record is in patient's chart, documented by night nurse. medication administration for this morning late d/t computer charting system delay& unknown orders. all due medication given, patient verbalized understanding of schedule and timing after explained situation. no change in condition r/t late schedule.
[2017-01-29 12:24] LABS: BASOPHILS % (AUTO) 0.2 % (0.0-2.0); EOSINOPHILS # (AUTO) 1.4 /CMM (0.0-0.7); HEMATOCRIT 41 % (39-51); HEMOGLOBIN 12.7 g/dL (13.5-17.5); LYMPHOCYTES # (AUTO) 0.8 /CMM (0.8-4.8); LYMPHOCYTES % (AUTO) 8.2 % (20.0-44.0); MEAN CORPUSCULAR HEMOGLOBIN 31 PG (26.0-33.0); MEAN CORPUSCULAR HGB CONC 31 g/dl (31.0-36.0); MEAN CORPUSCULAR VOLUME 99 fL (80-96); MONOCYTES # (AUTO) 1.7 /CMM (0.1-1.30); MONOCYTES % (AUTO) 17.1 % (2.0-12.0); NEUTROPHILS # (AUTO) 5.7 /CMM (1.8-8.9); NEUTROPHILS % (AUTO) 59.5 % (43.0-81.0); PLATELET COUNT (AUTO) 352 /CMM (150-450); RDW COEFFICIENT OF VARIATION 20.8 (11.5-15.0); RED BLOOD CELL COUNT(AUTO) 4.14 MIL/uL (4.5-6.0); WHITE BLOOD COUNT (AUTO) 9.6 K/uL (4.3-11.0)
[2017-01-29] MEDS: PANTOPRAZOLE 40 MG VIAL IV SCH (13:17)
[2017-01-29 13:33] LABS: BAND % (MANUAL) 1 % (0.0-5.0); EOSINOPHILS % (MANUAL) 15 % (0-4); LYMPHOCYTES % (MANUAL) 9 % (16-48); MONOCYTES % (MANUAL) 12 % (0-11.0); NEUTROPHILS % (MANUAL) 63 (42-76)
--- NOTE | 2017-01-29 16:00 | NUR ---
DIETARY NOTE PAGED DR. SALDANA ABOUT DIETARY RECOMMENDATION- DECREASE FEEDING TO 35ML/HE X 24HR AND ABOUT PROSTAT BID. PENDING RESPONSE.
--- NOTE | 2017-01-29 17:19 | NUR ---
VANCOMYCIN NOTE CALLED PHARMACY INQUIRING ABOUT VANCO PRN DIALYSIS. PATIENT RECEIVED DIALYSIS TODAY. PENDING ORDER
--- NOTE | 2017-01-29 19:30 | NUR ---
RN INITIAL NOTE RECEIVED PT IN NO ACUTE DISTRESS IN BED. PT IS A/O X 3 AND ABLE TO MAKE NEEDS KNOWN. PT IS ON MECHANICAL VENT VIA TRACH. TRACH SITE IS CLEAN DRY AND INTACT. PT TOLERATING VENT SETTING WELL. PT IS NO C/O ANY SOB, DIFFICULTY BREATHING OR PAIN AT THIS TIME. PT HAS ILIOSTOMY THAT IS CLEAN DRY AND INTACT WITH SOFT STOOL IN BAG. PT HAS SUPRAPUBIC CATHETER THAT IS CLEAN DRY AND INTACT WITH DARK CLOUDY URINE DRAINING. PT HAS GTUBE THAT IS CLEAN DRY AND INTACT WITH NOVASOURCE @ 35ML/HR. PT HAS LHAND 20G THAT IS CLEAN DRY AND INTACT WITH NS @ 40ML/HR. PT HAS RCW HD CATH THAT IS CLEAN DRY AND INTACT. BED IN LOW LOCK POSITION WITH RIALS UP X 2. CALL LIGHT WTIHIN REACH AND ALL SAFETY MEASURES ENSURED AND CARRIED OUT. WILL CONTINUE TO MONITOR PT.
[2017-01-30] VITALS: BP 116/77
--- NOTE | 2017-01-30 | NUR ---
FOREST FIRE FIGHTERS DISPATCHER: REMAINED SR ON NETWORK INTERN. NO ACUTE DISTRESS AND TOLERATING VENT SETTINGS ORDERED. NO C/O PAIN. TOLERATING GTF WT NO RESIDUAL. HOB AT 35 DEGREES FOR ASPIRATION PRECAUTION. WILL CONTINUE TO MONITOR.
[2017-01-30] MEDS: RENAL NOVASOURCE 1,000 ML BOTTLE GT PRN (02:53)
[2017-01-30 04:00] VITALS: BP 117/74
[2017-01-30] MEDS: MEROPENEM 500 MG in IV NS 0.9% 50 ML IV SCH (04:39)
--- NOTE | 2017-01-30 06:20 | NUR ---
ELECTRICIAN: UNABLE TO WEIGH PT AT THIS TIME D/T BED SCALE NOT WORKING. REMAINED SR ON TELE MONITOR WT. AFEBRILE. TOLERATING VENT SETTINGS ORDERED. NO ACUTE DISTRESS, NO C/O PAIN OR EVIDENCE OF DISCOMFORT. ALL NEEDS MET. SAFETY PRECAUTION NOTED AT ALL TIMES.
[2017-01-30 07:02] LABS: CALCIUM, SERUM 9.1 mg/dL (8.5-10.1); CREATININE 4.3 mg/dL (0.6-1.3); POTASSIUM 3.5 mmol/L (3.5-5.1)
--- NOTE | 2017-01-30 07:30 | NUR ---
RN NOTES [facility]CEIVED [facility] WITH BREATHING NORMAL, EVEN AND UNLABORED. NO SOB NOTED. NO ACUTE DISTRESS NOTED. VENT SETTING REVIEWED AND VERIFIED. TOLERATED WELL. TELE MONITOR REVEALS SR, HR=80. IV L HAND IS PATENT AND INTACT, RUNNING IVF PER ORDER. HD CATH IS INTACT. KEPT CLEAN, DRY AND COMFORTABLE. ALL NEEDS ATTENDED. SAFETY MEASURE OBSERVED. CALL LIGHT WITH IN REACH. WILL CONT TO MONITOR.
[2017-01-30 08:00] VITALS: BP 108/63
[2017-01-30] MEDS: ESCITALOPRAM OXALATE (10 MG) 10 MG TABLET GT SCH (08:35)
[2017-01-30] MEDS: SUCRALFATE 1 G/10 ML UDC PO SCH ×3 (08:35→17:15)
[2017-01-30] MEDS: ZINC SULFATE 220 MG CAPSULE GT SCH (08:35)
[2017-01-30] MEDS: GABAPENTIN 300 MG CAPSULE GT SCH ×3 (08:35→17:15)
[2017-01-30] MEDS: METOCLOPRAMIDE HCL 10 MG TABLET GT SCH ×2 (08:35→21:15)
[2017-01-30] MEDS: LEVETIRACETAM SOL (5 ML) 100 MG/ML UDC GT SCH ×2 (08:35→17:15)
[2017-01-30] MEDS: VIT B CMPLX 3/FA/VIT C/BIOTIN 1 TAB TABLET GT SCH (08:35)
[2017-01-30] MEDS: SEVELAMER CARBONATE 0.8 GM POWD.PACK GT SCH ×3 (08:35→17:15)
[2017-01-30] MEDS: NYSTATIN CREAM 15 GM TUBE TP SCH ×2 (08:36→17:16)
[2017-01-30] MEDS: HYDROGEL DRESSING 90 GM TUBE TP SCH (08:36)
[2017-01-30] MEDS: POLYVINYL ALCOHOL 15 ML BOTTLE OP SCH ×2 (08:36→17:16)
[2017-01-30 12:00] VITALS: BP 120/72
[2017-01-30] MEDS: IV NS 0.9% 1,000 ML IV PRN (12:13)
[2017-01-30] MEDS: PANTOPRAZOLE 40 MG VIAL IV SCH (12:13)
[2017-01-30] MEDS: ONDANSETRON HCL/PF 4 MG/2 ML VIAL IVP PRN (12:17)
[2017-01-30 16:00] VITALS: BP_SYST 100; BP_SYST 98; BP_DIAS 60
--- NOTE | 2017-01-30 18:47 | NUR ---
RN NOTES PATIENT ENDORSED TO NEXT SHIFT IN STABLE CONDITION WITH BREATHING NORMAL, EVEN AND UNLABORED. NO SOB NOTED. NO ACUTE DISTRESS NOTED. KEPT CLEAN, DRY AND COMFORTABLE. ALL NEEDS ATTENDED. SAFETY MEASURE OBSERVED. CALL LIGHT WITH IN REACH. WILL CONT TO MONITOR.
[2017-01-30] MEDS ORDERED: DEXTROSE 50%-WATER 50 ML DISP.SYRIN IV PRN (19:30)
[2017-01-30] MEDS ORDERED: INSULIN REGULAR, HUMAN 100 UNIT/ML 3 ML VIAL SQ PRN (19:30)
[2017-01-30 20:00] VITALS: BP 118/77
[2017-01-30] MEDS: BLOOD SUGAR DIAGNOSTIC 1 EACH STRIP IN SCH (21:20)
[2017-01-31] VITALS: BP 94/58
[2017-01-31 04:00] VITALS: BP 117/72
[2017-01-31] MEDS: MEROPENEM 500 MG in IV NS 0.9% 50 ML IV SCH (05:09)
[2017-01-31 06:48] LABS: CALCIUM, SERUM 10.7 mg/dL (8.5-10.1); CREATININE 5.6 mg/dL (0.6-1.3); POTASSIUM 4.3 mmol/L (3.5-5.1)
[2017-01-31] MEDS: BLOOD SUGAR DIAGNOSTIC 1 EACH STRIP IN SCH ×4 (07:30→21:27)
[2017-01-31 08:00] VITALS: BP 105/67
--- NOTE | 2017-01-31 08:10 | NUR ---
PRESCHOOL TEACHER AIDE NOTES RN RECEIVED PATIENT VENT /TRACED NO ISSUES NOTED ,BREATHING EVEN AND UNLABORED. NO SOB NOTED. NO ACUTE DISTRESS NOTED. VENT SETTING ASSESSED. PT ON TELE MONITOR SR. IV L HAND IS PATENT AND INTACT, TAHIR MIDLINE INTACT/CLEAN. HD CATH IS INTACT. PT GOWN CHANGED DUE TO SOLED NATURE. ALL NEEDS ATTENDED. SAFETY MEASURE OBSERVED. CALL LIGHT WITH IN REACH. RN WILL CONT TO MONITOR PATIENT THROUGHOUT THE DAY .
[2017-01-31] MEDS: METOCLOPRAMIDE HCL 10 MG TABLET GT SCH ×2 (08:29→21:21)
[2017-01-31] MEDS: VIT B CMPLX 3/FA/VIT C/BIOTIN 1 TAB TABLET GT SCH (08:29)
[2017-01-31] MEDS: SEVELAMER CARBONATE 0.8 GM POWD.PACK GT SCH ×3 (08:29→17:54)
[2017-01-31] MEDS: LEVETIRACETAM SOL (5 ML) 100 MG/ML UDC GT SCH ×2 (08:29→17:54)
[2017-01-31] MEDS: SUCRALFATE 1 G/10 ML UDC PO SCH ×3 (08:29→17:54)
[2017-01-31] MEDS: ZINC SULFATE 220 MG CAPSULE GT SCH (08:29)
[2017-01-31] MEDS: ESCITALOPRAM OXALATE (10 MG) 10 MG TABLET GT SCH (08:29)
[2017-01-31] MEDS: GABAPENTIN 300 MG CAPSULE GT SCH ×3 (08:29→17:54)
[2017-01-31] MEDS: Z GUARD REMEDY 2 OZ OINT TP PRN (08:34)
[2017-01-31] MEDS: HYDROGEL DRESSING 90 GM TUBE TP SCH (08:35)
[2017-01-31] MEDS: NYSTATIN CREAM 15 GM TUBE TP SCH ×2 (08:35→17:55)
[2017-01-31] MEDS: POLYVINYL ALCOHOL 15 ML BOTTLE OP SCH ×2 (08:35→17:54)
[2017-01-31] MEDS ORDERED: diphenhydrAMINE HCL 50 MG/ML VIAL IV ONE (10:00)
[2017-01-31 12:00] VITALS: BP 86/57
[2017-01-31] MEDS: PANTOPRAZOLE 40 MG VIAL IV SCH (12:04)
[2017-01-31] MEDS: AMIKACIN 350 MG in IV D5W 100 ML IV PRN (12:07)
[2017-01-31] MEDS: ONDANSETRON HCL/PF 4 MG/2 ML VIAL IVP PRN (15:50)
[2017-01-31 16:00] VITALS: BP 94/57
--- NOTE | 2017-01-31 16:19 | NUR ---
RN 1500 ML REMOVED POST HD PAT EXPERIENCED SOME NAUSEA ZOFRAN GIVEN RELIEF EXPRESSED
[2017-01-31] MEDS: VANCOMYCIN 500 MG in IV D5W 100 ML IV PRN (17:53)
--- NOTE | 2017-01-31 19:01 | NUR ---
RN CLOSING NOTE REPORT GIVEN TO PM RN , PATIENT HAS HAD NAUSEA THROUGHOUT THE DAY FEEDING DECREASED TO 35ML/HR PATIENT HAS HAD SMALL AMOUNT OF URINE OUTPUT , REDNESS NOTED IN URINE HOWEVER PATIENT UPON URINE SCAN APPEARS YELLOW, PATIENT CLEAN AND DRY CONTINUED CARE ENDORSED TO PM RN
--- NOTE | 2017-01-31 19:30 | NUR ---
TELE/RN NOTES: RECEIVED PT. IN BED W/HOB ELEVATED. A/O X 2 FOLLOWS COMMANDS. W/ TRACH SETTING TOLERATING WELL. NOT IN ANY ACUTE RESPIRATORY DISTRESS NOTED. W/ GTF HELD DUE TO EMESIS . HAS ILEOSTOMY INPLACE W/ BROWN FECES. HAS SUPRAPUBIC CATH IN PLACE VIA GRAVITY DRAINING YELLOW URINE W/ SOME SEDIMENTS. RCW HD CATH INPLACE. TAHIR MID LINE AND LEFT HAND IV PATENT AND INTACT W/ NO S/S OF INFECTION/INFILTRATION NOTED. ON IVF TOLERATING WELL. CALL LIGHT W/ REACH. WILL CONTINUE TO MONTIOR.
[2017-01-31 20:00] VITALS: BP 95/51
[2017-02-01] VITALS (9 sets, daily range): BP systolic 68–105; BP diastolic 36–68
[2017-02-01] MEDS: RENAL NOVASOURCE 1,000 ML BOTTLE GT PRN (03:51)
[2017-02-01] MEDS: MEROPENEM 500 MG in IV NS 0.9% 50 ML IV SCH (04:04)
[2017-02-01] MEDS: BLOOD SUGAR DIAGNOSTIC 1 EACH STRIP IN SCH ×4 (06:29→21:27)
--- NOTE | 2017-02-01 06:50 | NUR ---
TELE/RN NOTES: PT. IN BED W/ HOB ELEVATED. TOLERATED VENT SETTING. TOLERATING GTF AT 45 CC/HR W/ 15 ML OF RESIDUAL NOTED. NOT IN ANY RESPIRATORY DISTRESS NOTED. WILL CONTINUE TO MONITOR. REPORT GIVEN TO THE NEXT SHIFT FOR CLAUDIA.
[2017-02-01] MEDS: VIT B CMPLX 3/FA/VIT C/BIOTIN 1 TAB TABLET GT SCH (09:55)
[2017-02-01] MEDS: LEVETIRACETAM SOL (5 ML) 100 MG/ML UDC GT SCH ×2 (09:55→17:09)
[2017-02-01] MEDS: GABAPENTIN 300 MG CAPSULE GT SCH ×3 (09:55→17:09)
[2017-02-01] MEDS: SEVELAMER CARBONATE 0.8 GM POWD.PACK GT SCH ×3 (09:55→17:11)
[2017-02-01] MEDS: METOCLOPRAMIDE HCL 10 MG TABLET GT SCH ×2 (09:55→21:27)
[2017-02-01] MEDS: ESCITALOPRAM OXALATE (10 MG) 10 MG TABLET GT SCH (09:55)
[2017-02-01] MEDS: SUCRALFATE 1 G/10 ML UDC PO SCH ×3 (09:55→17:09)
[2017-02-01] MEDS: ZINC SULFATE 220 MG CAPSULE GT SCH (09:55)
[2017-02-01] MEDS: HYDROGEL DRESSING 90 GM TUBE TP SCH (09:56)
[2017-02-01] MEDS: POLYVINYL ALCOHOL 15 ML BOTTLE OP SCH ×2 (09:56→17:16)
[2017-02-01] MEDS: NYSTATIN CREAM 15 GM TUBE TP SCH ×2 (09:57→17:16)
--- NOTE | 2017-02-01 10:26 | NUR ---
PAINT SPRAY TENDER NOTES RN RECEIVED PATIENT SLEEPING IN BED VENT /TRACED NO ISSUES NOTED ,BREATHING EVEN AND UNLABORED. NO SOB NOTED. NO ACUTE DISTRESS NOTED. VENT SETTING ASSESSED. PT ON TELE MONITOR SR. IV L HAND IS PATENT AND INTACT, TAHIR MIDLINE INTACT/CLEAN. HD CATH IS INTACT. PT GOWN CLEAN , RN DE CLOGGED G-TUBE WITH 50ML OF WARM WATER . ALL NEEDS ATTENDED. SAFETY MEASURE OBSERVED. CALL LIGHT WITH IN REACH. RN WILL CONT TO MONITOR PATIENT THROUGHOUT THE DAY .
[2017-02-01] MEDS: PANTOPRAZOLE 40 MG VIAL IV SCH (12:52)
--- NOTE | 2017-02-01 19:30 | NUR ---
DOUGH MIXER HELPER INITIAL NOTE PT RECEIVED RESTING IN BED. A/O X1 AND ABLE TO MAKE NEEDS KNOWN. ON MECH VENT AND SATURATING 97% WITH SETTINGS WELL TOLERATED. TELE- SR 70'S. GTUBE CLEAN AND FLUSHING WELL WITHOUT RESIDUALS NOTED. ILEOSTOMY CLEAN AND IN PLACE. SUPRAPUBIC CATHETER IN PLACE AND DRAINING BY GRAVITY ROSALES/ TEA COLOR URINE WITH SEDIMENT NOTED. IV TAHIR MIDLINE AND LEFT HAND CLEAN, DRY AND PATENT. RCW HD CATH CLEAN AND DRY. CALL LIGHT WITHIN REACH. ISOLATION AND ASPIRATION PRECAUTIONS OBSERVED. WILL CONTINUE TO MONITOR.
--- NOTE | 2017-02-01 19:46 | NUR ---
RN CLOSING NOTE REPORT GIVEN TO PM RN , PATIENT STABLE THROUGHOUT THE DAY FEEDING TOLERATED AT 35ML/HR PATIENT HAS HAD SMALL AMOUNT OF URINE OUTPUT , PATIENT CLEAN AND DRY CONTINUED CARE ENDORSED TO PM RN. HD SCHEDULED FOR TOMORROW
[2017-02-01] MEDS: ONDANSETRON HCL/PF 4 MG/2 ML VIAL IVP PRN (23:58)
[2017-02-02] VITALS (7 sets, daily range): BP systolic 92–127; BP diastolic 55–77
[2017-02-02] MEDS ORDERED: KEY,NONCONTROL,TO KEEP IN PYXI 1 EA MC ONE ×2 (00:18→00:21)
[2017-02-02] MEDS: HYDROCODONE/APAP 5/325MG 1 EACH TABLET PO PRN (01:41)
[2017-02-02] MEDS: MEROPENEM 500 MG in IV NS 0.9% 50 ML IV SCH (04:44)
[2017-02-02] MEDS: RENAL NOVASOURCE 1,000 ML BOTTLE GT PRN (04:46)
[2017-02-02 06:36] LABS: BASOPHILS % (AUTO) 0.2 % (0.0-2.0); EOSINOPHILS # (AUTO) 0.8 /CMM (0.0-0.7); EOSINOPHILS % (AUTO) 4.3 % (0.0-6.0); HEMATOCRIT 39 % (39-51); HEMOGLOBIN 12.3 g/dL (13.5-17.5); LYMPHOCYTES # (AUTO) 0.8 /CMM (0.8-4.8); LYMPHOCYTES % (AUTO) 4.3 % (20.0-44.0); MEAN CORPUSCULAR HEMOGLOBIN 31 PG (26.0-33.0); MEAN CORPUSCULAR HGB CONC 32 g/dl (31.0-36.0); MEAN CORPUSCULAR VOLUME 98 fL (80-96); MONOCYTES # (AUTO) 1.7 /CMM (0.1-1.30); MONOCYTES % (AUTO) 8.8 % (2.0-12.0); NEUTROPHILS # (AUTO) 15.7 /CMM (1.8-8.9); NEUTROPHILS % (AUTO) 82.4 % (43.0-81.0); PLATELET COUNT (AUTO) 315 /CMM (150-450); RDW COEFFICIENT OF VARIATION 20.3 (11.5-15.0); RED BLOOD CELL COUNT(AUTO) 3.99 MIL/uL (4.5-6.0); WHITE BLOOD COUNT (AUTO) 19.1 K/uL (4.3-11.0)
[2017-02-02] MEDS: BLOOD SUGAR DIAGNOSTIC 1 EACH STRIP IN SCH ×4 (07:30→21:53)
--- NOTE | 2017-02-02 07:36 | NUR ---
SUPPLY CHAIN ENGINEER NOTES RN RECEIVED PATIENT SLEEPING IN BED VENT /TRACED NO ISSUES NOTED ,BREATHING EVEN AND UNLABORED. NO SOB NOTED. NO ACUTE DISTRESS NOTED. VENT SETTING ASSESSED. PT ON TELE MONITOR SR. PT HAS TAHIR MIDLINE INTACT/CLEAN. HD CATH IS INTACT. PT GOWN CLEAN , ALL NEEDS ATTENDED. SAFETY MEASURE OBSERVED. CALL LIGHT WITH IN REACH. RN WILL CONT TO MONITOR PATIENT THROUGHOUT THE DAY .
--- NOTE | 2017-02-02 07:42 | NUR ---
GERMINATION TESTING MANAGER CLOSING NOTE PT REMAINED STABLE DURING SHIFT. ISOLATION PRECAUTIONS OBSERVED. [facility] TOLER[facility]. ALL NEEDS ATTENDED TO PROMPTLY. KEPT CLEAN AND DRY. ALL SAFETY MEASURES IN PLACE. WILL ENDORSE TO NEXT SHIFT FOR CONTINUITY OF CARE.
[2017-02-02 07:49] LABS: CALCIUM, SERUM 10.9 mg/dL (8.5-10.1); MAGNESIUM 2.5 mg/dL (1.8-2.4); PHOSPHORUS 3.4 mg/dL (2.5-4.9); POTASSIUM 3.7 mmol/L (3.5-5.1)
[2017-02-02] MEDS: NYSTATIN TOP POWDER 15 GM BOTTLE TP SCH ×2 (09:00→17:19)
[2017-02-02] MEDS: VIT B CMPLX 3/FA/VIT C/BIOTIN 1 TAB TABLET GT SCH (09:20)
[2017-02-02] MEDS: METOCLOPRAMIDE HCL 10 MG TABLET GT SCH ×2 (09:20→21:54)
[2017-02-02] MEDS: ZINC SULFATE 220 MG CAPSULE GT SCH (09:20)
[2017-02-02] MEDS: GABAPENTIN 300 MG CAPSULE GT SCH ×3 (09:20→17:19)
[2017-02-02] MEDS: SUCRALFATE 1 G/10 ML UDC PO SCH ×3 (09:20→17:19)
[2017-02-02] MEDS: LEVETIRACETAM SOL (5 ML) 100 MG/ML UDC GT SCH ×2 (09:20→17:19)
[2017-02-02] MEDS: ESCITALOPRAM OXALATE (10 MG) 10 MG TABLET GT SCH (09:21)
[2017-02-02] MEDS: SEVELAMER CARBONATE 0.8 GM POWD.PACK GT SCH ×3 (09:21→17:22)
[2017-02-02] MEDS: NYSTATIN CREAM 15 GM TUBE TP SCH ×2 (09:25→17:20)
[2017-02-02] MEDS: Z GUARD REMEDY 2 OZ OINT TP PRN (09:25)
[2017-02-02] MEDS: HYDROGEL DRESSING 90 GM TUBE TP SCH (09:25)
[2017-02-02] MEDS: POLYVINYL ALCOHOL 15 ML BOTTLE OP SCH ×2 (09:26→17:20)
[2017-02-02] MEDS: PANTOPRAZOLE 40 MG VIAL IV SCH (12:41)
[2017-02-02] MEDS: PROSOURCE / PROSTAT (PYXIS) 30 ML UDC GT SCH (17:19)
--- NOTE | 2017-02-02 18:55 | NUR ---
RN CLOSING NOTE PATIENT STABLE THROUGHOUT THE DAY FEEDING TOLERATED AT 35ML/HR PATIENT HAS HAD SMALL AMOUNT OF URINE OUTPUT , PATIENT CLEAN AND DRY CONTINUED CARE ENDORSED TO PM RN. HD PERFORMED TODAY NO FLUID REMOVED , INFECTIOUS DISEASE REVIEWED PATIETN LAB AND ORDERED REAPEAT BLOOD CULTURE FOR THE PATIENT .
--- NOTE | 2017-02-02 19:45 | NUR ---
MONITORING TECH INITIAL NOTE PT RECEIVED SLEEPING IN BED. A/O X1 AND ABLE TO MAKE SOME NEEDS KNOWN. ON MECH VENT WITH SETTINGS WELL TOLERATED AND SATURATING AT 98%. HOB ELEVATED AND ON ASPIRATION PRECAUTIONS. GTUBE FEEDING WELL TOLERATED WITHOUT RESIDUALS NOTED AND FLUSHING WELL. IV RUAM MIDLINE CLEAN, PATENT AND FLUSHING WELL. SUPRAPUBIC CATHETER IN PLACE AND DRAINING BY GRAVITY ROSALES WITH SEDIMENT URINE AT THIS TIME. NO C/O PAIN OR DISCOMFORT AT THIS TIME. NO SOB NOTED. ISOLATION PRECAUTIONS OBSERVED. TELE- SR. CALL LIGHT WITHIN REACH. WILL CONTINUE TO MONITOR.
[2017-02-03] VITALS (8 sets, daily range): BP systolic 92–103; BP diastolic 51–70
[2017-02-03] MEDS: MEROPENEM 500 MG in IV NS 0.9% 50 ML IV SCH (04:39)
[2017-02-03] MEDS: RENAL NOVASOURCE 1,000 ML BOTTLE GT PRN (04:40)
[2017-02-03 07:20] LABS: BASOPHILS # (AUTO) 0.1 /CMM (0.0-0.2); BASOPHILS % (AUTO) 0.4 % (0.0-2.0); EOSINOPHILS # (AUTO) 0.7 /CMM (0.0-0.7); EOSINOPHILS % (AUTO) 5.1 % (0.0-6.0); HEMATOCRIT 38 % (39-51); HEMOGLOBIN 11.8 g/dL (13.5-17.5); LYMPHOCYTES # (AUTO) 0.7 /CMM (0.8-4.8); LYMPHOCYTES % (AUTO) 5.4 % (20.0-44.0); MEAN CORPUSCULAR HEMOGLOBIN 31 PG (26.0-33.0); MEAN CORPUSCULAR HGB CONC 31 g/dl (31.0-36.0); MEAN CORPUSCULAR VOLUME 99 fL (80-96); MONOCYTES # (AUTO) 1.7 /CMM (0.1-1.30); MONOCYTES % (AUTO) 12.2 % (2.0-12.0); NEUTROPHILS # (AUTO) 10.6 /CMM (1.8-8.9); NEUTROPHILS % (AUTO) 76.9 % (43.0-81.0); PLATELET COUNT (AUTO) 344 /CMM (150-450); RDW COEFFICIENT OF VARIATION 19.8 (11.5-15.0); RED BLOOD CELL COUNT(AUTO) 3.82 MIL/uL (4.5-6.0); WHITE BLOOD COUNT (AUTO) 13.8 K/uL (4.3-11.0)
--- NOTE | 2017-02-03 07:24 | NUR ---
PATIENT RELATIONS MANAGER CLOSING NOTE PT REMAINED STABLE DURING SHIFT. NO ACUTE DISTRESS NOTED. VENT SETTINGS WELL TOLERATED. ISOLATION PRECAUTIONS OBSERVED. REPOSITIONED Q2H. WOUND TREATMENT PERFORMED ORDERED. HOB ELEVATED AND ASPIRATION PRECAUTIONS OBSERVED. KEPT CLEAN AND DRY. ALL NEEDS ATTENDED TO PROMPTLY. WILL ENDORSE TO NEXT SHIFT FOR CONTINUITY OF CARE.
--- NOTE | 2017-02-03 07:40 | NUR ---
RETURNER NOTES RN RECEIVED PATIENT ALERT AND ORIENTED TO PERSON AND PLACE ABLE TO MAKE NEEDS KNOWN IN BED VENT /TRACED NO ISSUES NOTED ,BREATHING EVEN AND UNLABORED. NO SOB NOTED. NO ACUTE DISTRESS NOTED. VENT SETTING ASSESSED. PT ON TELE MONITOR SR. PT HAS TAHIR MIDLINE INTACT/CLEAN. HD CATH IS INTACT. PT GOWN CLEAN , ALL NEEDS ATTENDED. SAFETY MEASURE OBSERVED. CALL LIGHT WITH IN REACH. RN WILL CONT TO MONITOR PATIENT THROUGHOUT THE DAY .
[2017-02-03] MEDS: ZINC SULFATE 220 MG CAPSULE GT SCH (08:25)
[2017-02-03] MEDS: PROSOURCE / PROSTAT (PYXIS) 30 ML UDC GT SCH ×2 (08:25→17:34)
[2017-02-03] MEDS: SUCRALFATE 1 G/10 ML UDC PO SCH ×3 (08:25→17:34)
[2017-02-03] MEDS: ESCITALOPRAM OXALATE (10 MG) 10 MG TABLET GT SCH (08:25)
[2017-02-03] MEDS: VIT B CMPLX 3/FA/VIT C/BIOTIN 1 TAB TABLET GT SCH (08:25)
[2017-02-03] MEDS: METOCLOPRAMIDE HCL 10 MG TABLET GT SCH ×2 (08:25→21:22)
[2017-02-03] MEDS: SEVELAMER CARBONATE 0.8 GM POWD.PACK GT SCH ×3 (08:25→17:34)
[2017-02-03] MEDS: GABAPENTIN 300 MG CAPSULE GT SCH ×3 (08:25→17:34)
[2017-02-03] MEDS: LEVETIRACETAM SOL (5 ML) 100 MG/ML UDC GT SCH ×2 (08:25→17:34)
[2017-02-03] MEDS: HYDROGEL DRESSING 90 GM TUBE TP SCH (08:26)
[2017-02-03] MEDS: BLOOD SUGAR DIAGNOSTIC 1 EACH STRIP IN SCH ×4 (08:26→21:22)
[2017-02-03] MEDS: NYSTATIN TOP POWDER 15 GM BOTTLE TP SCH ×2 (08:26→17:35)
[2017-02-03] MEDS: POLYVINYL ALCOHOL 15 ML BOTTLE OP SCH ×2 (08:26→17:35)
[2017-02-03] MEDS: NYSTATIN CREAM 15 GM TUBE TP SCH ×2 (08:26→17:35)
[2017-02-03 10:13] LABS: LYMPHOCYTES % (MANUAL) 16 % (16-48); MONOCYTES % (MANUAL) 2 % (0-11.0); NEUTROPHILS % (MANUAL) 82 (42-76)
[2017-02-03] MEDS: PANTOPRAZOLE 40 MG VIAL IV SCH (12:24)
--- NOTE | 2017-02-03 18:47 | NUR ---
RN CLOSING NOTE PATIENT STABLE THROUGHOUT THE DAY FEEDING TOLERATED AT 35ML/HR PATIENT HAS HAD SMALL AMOUNT OF URINE OUTPUT BLOOD TINGE , PATIENT CLEAN AND DRY CONTINUED CARE ENDORSED TO PM RN. PATIENT CONTINUES TO REQUEST FOOD
--- NOTE | 2017-02-03 20:00 | NUR ---
received pt from day shift, alert, follows simple commands, SR, on the vent, lungs congested, no edema, GT to feeding tolerates well, R ileostomy intact, suprapubic cath, very low output, HD pt, v/s stable, no pain, pt turned and repositioned.
[2017-02-04] VITALS (7 sets, daily range): BP systolic 96–143; BP diastolic 58–88
--- NOTE | 2017-02-04 01:01 | NUR ---
pt transferred to [address], ACLS followed, stable, report given to Davy.
--- NOTE | 2017-02-04 01:15 | NUR ---
RN NOTES PATIENT TRANSFERRED FROM [facility]. ALERT AND ORIENTED X2. VS STABLE. NO SOB. NO ACUTE DISTRESS NOTED. RESPIRATIONS EVEN AND UNLABORED. NO FACIAL GRIMACING NOTED. IV ACCESS ON RVA MIDLINE PATENT AND INTACT. GTUBE FLUSHED WITH 60 ML OF WATER. INFUSING NOVASOURCE FEEDING AT 35 ML/HR. TRACH SECURE IN PROPER POSITION. BED IN LOW POSITION. SIDE RAILSX3. CALL LIGHT WITHIN EASY REACH. CONTINUE TO MONITOR.
[2017-02-04] MEDS: MEROPENEM 500 MG in IV NS 0.9% 50 ML IV SCH (05:08)
[2017-02-04] MEDS: RENAL NOVASOURCE 1,000 ML BOTTLE GT PRN (05:14)
[2017-02-04] MEDS: BLOOD SUGAR DIAGNOSTIC 1 EACH STRIP IN SCH ×4 (06:41→22:09)
--- NOTE | 2017-02-04 06:43 | NUR ---
RN NOTES BS 91. NO INSULIN REQUIRED PER PROTOCOL.
--- NOTE | 2017-02-04 06:53 | NUR ---
RN CLOSING NOTES PATIENT SLEEPING IN BED. VS STABLE. NO SOB. NO ACUTE DISTRESS NOTED. RESPIRATIONS EVEN AND UNLABORED. NO FACIAL GRIMACING NOTED. IV ACCESS ON TAHIR MIDLINE PATENT AND INTACT. NO REDNESS OR INFILTRATION NOTED. GTUBE INFUSING NOVASOURCE FEEDING AT 35 ML/HR. ALL MEDICATIONS GIVEN PER MD ORDER. TRACH SECURE IN PROPER POSITION. BED IN LOW POSITION. SIDE RAILSX3. CALL LIGHT WITHIN EASY REACH. WILL ENDORSE TO RN DAY SHIFT FOR CONTINUITY OF CARE.
--- NOTE | 2017-02-04 07:44 | NUR ---
CARPENTER FORM OPENING NOTE SBAR REPORT RECEIVED AT THE BEDSIDE.PATIENT IS ON CONTACT ISOLATION. PATIENT IS A/O X2, NON VERBAL, VENTILATOR DEPENDANT. VENTILATOR SETTINGS ARE PRESCRIBED. ENTERAL FEEDING RUNNING AT A PRESCRIBED RATE. PATIENT IS ASLEEP, EASILY AWAKEN. BED IS LOCKED AT THE LOWEST POSITION, SIDE RAIL UP X2, BED ALARM ON. PATIENT IS IN HIGH DUPREE'S POSITION. NO S/S OF DISTRESS. ALL NEEDS ATTENDED TO. CALL LIGHT WITHIN REACH. PATIENT EDUCATED TO CALL THE RN/MEDIA PROFESSIONAL FOR ASSISTANCE USING THE CALL LIGHT. WILL CONTINUE TO ASSESS AND MONITOR THROUGHOUT THE SHIFT.
--- NOTE | 2017-02-04 07:45 | NUR ---
RN EMBEDDED NOTE EXTERNAL MONITOR READING SR 64.
[2017-02-04] MEDS: PROSOURCE / PROSTAT (PYXIS) 30 ML UDC GT SCH ×2 (08:22→17:50)
[2017-02-04 08:26] LABS: BASOPHILS % (AUTO) 0.3 % (0.0-2.0); EOSINOPHILS # (AUTO) 0.8 /CMM (0.0-0.7); EOSINOPHILS % (AUTO) 6.1 % (0.0-6.0); HEMATOCRIT 38 % (39-51); HEMOGLOBIN 11.9 g/dL (13.5-17.5); LYMPHOCYTES # (AUTO) 0.9 /CMM (0.8-4.8); LYMPHOCYTES % (AUTO) 6.2 % (20.0-44.0); MEAN CORPUSCULAR HEMOGLOBIN 31 PG (26.0-33.0); MEAN CORPUSCULAR HGB CONC 31 g/dl (31.0-36.0); MEAN CORPUSCULAR VOLUME 98 fL (80-96); MONOCYTES # (AUTO) 1.5 /CMM (0.1-1.30); MONOCYTES % (AUTO) 10.6 % (2.0-12.0); NEUTROPHILS # (AUTO) 10.7 /CMM (1.8-8.9); NEUTROPHILS % (AUTO) 76.8 % (43.0-81.0); PLATELET COUNT (AUTO) 360 /CMM (150-450); RDW COEFFICIENT OF VARIATION 19.8 (11.5-15.0); RED BLOOD CELL COUNT(AUTO) 3.86 MIL/uL (4.5-6.0); WHITE BLOOD COUNT (AUTO) 13.9 K/uL (4.3-11.0)
[2017-02-04] MEDS: POLYVINYL ALCOHOL 15 ML BOTTLE OP SCH ×2 (08:29→17:51)
[2017-02-04] MEDS: NYSTATIN TOP POWDER 15 GM BOTTLE TP SCH ×2 (08:30→17:51)
[2017-02-04] MEDS: HYDROGEL DRESSING 90 GM TUBE TP SCH (08:31)
[2017-02-04] MEDS: SUCRALFATE 1 G/10 ML UDC PO SCH ×3 (08:32→17:52)
[2017-02-04] MEDS: LEVETIRACETAM SOL (5 ML) 100 MG/ML UDC GT SCH ×2 (08:32→17:52)
[2017-02-04] MEDS: NYSTATIN CREAM 15 GM TUBE TP SCH ×2 (08:33→17:51)
[2017-02-04] MEDS: VIT B CMPLX 3/FA/VIT C/BIOTIN 1 TAB TABLET GT SCH (08:33)
[2017-02-04] MEDS: SEVELAMER CARBONATE 0.8 GM POWD.PACK GT SCH ×3 (08:33→17:52)
[2017-02-04] MEDS: METOCLOPRAMIDE HCL 10 MG TABLET GT SCH ×2 (08:33→21:06)
[2017-02-04] MEDS: ZINC SULFATE 220 MG CAPSULE GT SCH (08:33)
[2017-02-04] MEDS: GABAPENTIN 300 MG CAPSULE GT SCH ×3 (08:34→17:52)
[2017-02-04] MEDS: ESCITALOPRAM OXALATE (10 MG) 10 MG TABLET GT SCH (08:34)
--- NOTE | 2017-02-04 08:38 | NUR ---
HEALTH SAFETY ENGINEER NOTE RT AT THE BEDSIDE.
[2017-02-04 08:44] LABS: CALCIUM, SERUM 11.3 mg/dL (8.5-10.1); CREATININE 5.3 mg/dL (0.6-1.3); MAGNESIUM 2.6 mg/dL (1.8-2.4); PHOSPHORUS 3.8 mg/dL (2.5-4.9); POTASSIUM 3.5 mmol/L (3.5-5.1)
--- NOTE | 2017-02-04 10:00 | NUR ---
MACHINE SILVER STRIPPER NOTE G-TUBE DRESSING CHANGED. SKIN CARE PROVIDED. PATIENT TOLERATED THE PROCEDURE WELL.
--- NOTE | 2017-02-04 13:25 | NUR ---
CLINIC RECEPTIONIST NOTE AMIKACIN 10.[address] JAMIE POSEY NOTIFIED.
[2017-02-04] MEDS: PANTOPRAZOLE 40 MG VIAL IV SCH (13:27)
--- NOTE | 2017-02-04 16:04 | NUR ---
HUMAN RESOURCES PROJECT COORDINATOR NOTE HD NURSE AT THE BEDSIDE. PATIENT'S BP DROPPED. ALBUMIN ORDERED TO MAINTAIN OPTIMAL BP. ORDER FAXED TO THE PHARMACY.
--- NOTE | 2017-02-04 16:06 | NUR ---
VETERINARY MICROBIOLOGIST NOTE CALLED PHARMACY. CONFIRMED THAT THE ORDER FAX WAS RECEIVED. PHARMACY IS PROCESSING THE ORDER.
[2017-02-04] MEDS ORDERED: ALBUMIN 25% 25 GM in PREMIX 1 EA IV ONE (16:30)
[2017-02-04] MEDS: AMIKACIN 350 MG in IV D5W 100 ML IV PRN (18:22)
--- NOTE | 2017-02-04 19:48 | NUR ---
MAILING MACHINE ASSISTANT CLOSING NOTE SBAR REPORT GIVEN AT THE BEDSIDE.PATIENT IS ON CONTACT ISOLATION. PATIENT IS A/O X2, NON VERBAL, VENTILATOR DEPENDANT. VENTILATOR SETTINGS ARE PRESCRIBED. ENTERAL FEEDING RUNNING AT A PRESCRIBED RATE. PATIENT IS ASLEEP, EASILY AWAKEN. BED IS LOCKED AT THE LOWEST POSITION, SIDE RAIL UP X2, BED ALARM ON. PATIENT IS IN HIGH DUPREE'S POSITION. NO S/S OF DISTRESS. ALL NEEDS ATTENDED TO. CALL LIGHT WITHIN REACH. PATIENT EDUCATED TO CALL THE RN/GRAIN FARMER FOR ASSISTANCE USING THE CALL LIGHT. REPORT GIVEN TO CANCELLATION CLERK NURSE FOR CLAUDIA.
[2017-02-04] MEDS: VANCOMYCIN 500 MG in IV D5W 100 ML IV PRN (19:50)
[2017-02-04] MEDS: HYDROCODONE/APAP 5/325MG 1 EACH TABLET PO PRN (22:29)
[2017-02-05] VITALS: BP 134/73
[2017-02-05 04:00] VITALS: BP 129/82
[2017-02-05] MEDS: ONDANSETRON HCL/PF 4 MG/2 ML VIAL IVP PRN (04:49)
[2017-02-05] MEDS: MEROPENEM 500 MG in IV NS 0.9% 50 ML IV SCH (05:08)
--- NOTE | 2017-02-05 06:39 | NUR ---
STRIPPER COLOR NOTES AWAKE & ALERT. NOT IN ANY DISTRESS. NO SOB NOTED. WITH SAME VENT SETTINGS. DENIES ANY PAIN OR DISCOMFORT AT THIS TIME. WITH IV-MIDLINE PATENT & INTACT. AM CARE DONE. MONITORED ACCORDINGLY. CALL LIGHT WITHIN REACH. BED IN LOWEST POSITION. SR UP X 3 WITH BED ALARM ON FOR SAFETY. WILL ENDORSE TO NEXT SHIFT.
[2017-02-05] MEDS: BLOOD SUGAR DIAGNOSTIC 1 EACH STRIP IN SCH ×3 (06:45→18:55)
[2017-02-05 07:47] LABS: BASOPHILS # (AUTO) 0.1 /CMM (0.0-0.2); BASOPHILS % (AUTO) 0.4 % (0.0-2.0); EOSINOPHILS # (AUTO) 0.8 /CMM (0.0-0.7); EOSINOPHILS % (AUTO) 5.5 % (0.0-6.0); HEMATOCRIT 41 % (39-51); HEMOGLOBIN 12.7 g/dL (13.5-17.5); LYMPHOCYTES # (AUTO) 0.6 /CMM (0.8-4.8); LYMPHOCYTES % (AUTO) 4.2 % (20.0-44.0); MEAN CORPUSCULAR HEMOGLOBIN 30 PG (26.0-33.0); MEAN CORPUSCULAR HGB CONC 31 g/dl (31.0-36.0); MEAN CORPUSCULAR VOLUME 97 fL (80-96); MONOCYTES # (AUTO) 1.4 /CMM (0.1-1.30); MONOCYTES % (AUTO) 9.8 % (2.0-12.0); NEUTROPHILS # (AUTO) 11.1 /CMM (1.8-8.9); NEUTROPHILS % (AUTO) 80.1 % (43.0-81.0); PLATELET COUNT (AUTO) 395 /CMM (150-450); RDW COEFFICIENT OF VARIATION 19.3 (11.5-15.0); RED BLOOD CELL COUNT(AUTO) 4.18 MIL/uL (4.5-6.0); WHITE BLOOD COUNT (AUTO) 13.9 K/uL (4.3-11.0)
[2017-02-05 08:00] VITALS: BP 124/78
[2017-02-05 08:14] LABS: CALCIUM, SERUM 10.6 mg/dL (8.5-10.1); CREATININE 4.7 mg/dL (0.6-1.3); MAGNESIUM 2.4 mg/dL (1.8-2.4); PHOSPHORUS 3.5 mg/dL (2.5-4.9); POTASSIUM 3.7 mmol/L (3.5-5.1)
--- NOTE | 2017-02-05 08:20 | NUR ---
MS RN RECEIVE DON BED, VOMITING LARGE AMOUNT,PATIENT ON VENT, W/ G TUBE FEEDING ON AT THIS TIME.UROSTOMY TUBE INTACT W/ YELLOWISH URINE OUTPUT CONNECTED TO GRAVITY BAG,COLOSTOMY INTACT W/ BROWNISH COLOR OUTPUT, REPOSITIONED FOR COMFORT.
--- NOTE | 2017-02-05 08:30 | NUR ---
MS RN CLEANED PATIENT W/ HEATING TECHNICIAN, FEEDING HELD FOR THIS TIME, NOT UNTIL VOMITING STOP. WILL GIVE MEDS LATER,NOT AT THIS TIME,PATIENT LOOKS EXAUSTED FROM VOMITING, WILL MONITOR PATIENT.
[2017-02-05] MEDS: NYSTATIN CREAM 15 GM TUBE TP SCH ×2 (09:00→17:00)
[2017-02-05 10:22] LABS: EOSINOPHILS % (MANUAL) 2 % (0-4); MONOCYTES % (MANUAL) 7 % (0-11.0); NEUTROPHILS % (MANUAL) 91 (42-76)
--- NOTE | 2017-02-05 10:30 | NUR ---
MS VIVIANA DUE MEDS GIVEN ,TOLERATED WELL VIA G TUBE, FEEDING RESUMED AT THIS TIME, WILL MONITOR PATIENT.
--- NOTE | 2017-02-05 11:00 | NUR ---
ms nr g tube feeding resumed,no vomiting noted.
[2017-02-05] MEDS: PANTOPRAZOLE 40 MG VIAL IV SCH (11:39)
[2017-02-05] MEDS: VIT B CMPLX 3/FA/VIT C/BIOTIN 1 TAB TABLET GT SCH (11:39)
[2017-02-05] MEDS: SUCRALFATE 1 G/10 ML UDC PO SCH ×3 (11:39→18:54)
[2017-02-05] MEDS: SEVELAMER CARBONATE 0.8 GM POWD.PACK GT SCH ×3 (11:39→18:54)
[2017-02-05] MEDS: METOCLOPRAMIDE HCL 10 MG TABLET GT SCH (11:40)
[2017-02-05] MEDS: GABAPENTIN 300 MG CAPSULE GT SCH ×3 (11:40→18:54)
[2017-02-05] MEDS: LEVETIRACETAM SOL (5 ML) 100 MG/ML UDC GT SCH ×2 (11:40→18:54)
[2017-02-05] MEDS: ZINC SULFATE 220 MG CAPSULE GT SCH (11:40)
[2017-02-05] MEDS: ESCITALOPRAM OXALATE (10 MG) 10 MG TABLET GT SCH (11:40)
[2017-02-05] MEDS: NYSTATIN TOP POWDER 15 GM BOTTLE TP SCH ×2 (11:41→18:55)
[2017-02-05] MEDS: HYDROGEL DRESSING 90 GM TUBE TP SCH (11:41)
[2017-02-05] MEDS: POLYVINYL ALCOHOL 15 ML BOTTLE OP SCH ×2 (11:46→18:55)
[2017-02-05] MEDS: PROSOURCE / PROSTAT (PYXIS) 30 ML UDC GT SCH ×2 (11:46→18:57)
--- NOTE | 2017-02-05 14:00 | NUR ---
ms rn on bed, no distress noted, will be transferred to snf this afternoon.
[2017-02-05] MEDS: RENAL NOVASOURCE 1,000 ML BOTTLE GT PRN (14:32)
[2017-02-05 16:00] VITALS: BP 133/58
--- NOTE | 2017-02-05 16:00 | NUR ---
ms rn patient ready to be transferred, pictures has been taken last night,all needs attended.
--- NOTE | 2017-02-05 16:50 | NUR ---
ms rn patient continuous pickling line pickler by transportation, report given to evaristo steve, all needs attended.
--- NOTE | 2017-02-05 19:01 | NUR ---
MS RN PATIENT JUST GOT TRANSFERRED NOW DUE TO RT EQUIPMENT MALFUNCTION.
[2017-02-25] MEDS ORDERED: Hydrogel Dressing TP (09:12)
[2017-02-25] MEDS ORDERED: PANT40SU2 GT (09:12)
== END 2017-02-05 18:05 | DRG 870 ==
LOC: ER 18:56 → TELE-TD 20:50 → TELE1 01-26 11:19 → TELE 02-04 00:47
PROVIDERS: ADMIT Internal Medicine; ATTEND Internal Medicine
PROC: 5A1955Z Respiratory Ventilation, Greater than 96 Consecutive Hours (ICD-10-PCS; principal; 2017-01-24)
PROC: 5A1D70Z Performance of Urinary Filtration, Intermittent, Less than 6 Hours Per Day (ICD-10-PCS; 2017-01-25)
PROC: 0DB58ZX Excision of Esophagus, Via Natural or Artificial Opening Endoscopic, Diagnostic (ICD-10-PCS; 2017-01-27)
PROC: 0W3P8ZZ Control Bleeding in Gastrointestinal Tract, Via Natural or Artificial Opening Endoscopic (ICD-10-PCS; 2017-01-27)
PROC: 05H533Z Insertion of Infusion Device into Right Subclavian Vein, Percutaneous Approach (ICD-10-PCS; 2017-01-30)
DX: A41.9 Sepsis, unspecified organism (principal); Z99.11 Dependence on respirator [ventilator] status; J84.9 Interstitial pulmonary disease, unspecified; I13.2 Hypertensive heart and chronic kidney disease with heart failure and with stage 5 chronic kidney disease, or end stage renal disease; J96.11 Chronic respiratory failure with hypoxia; K22.11 Ulcer of esophagus with bleeding; L89.152 Pressure ulcer of sacral region, stage 2; I50.23 Acute on chronic systolic (congestive) heart failure; N18.6 End stage renal disease; E44.1 Mild protein-calorie malnutrition; D68.59 Other primary thrombophilia; G82.20 Paraplegia, unspecified; N39.0 Urinary tract infection, site not specified; Z68.1 Body mass index [BMI] 19.9 or less, adult; K94.29 Other complications of gastrostomy; Z93.0 Tracheostomy status; E11.22 Type 2 diabetes mellitus with diabetic chronic kidney disease; E83.9 Disorder of mineral metabolism, unspecified; J44.9 Chronic obstructive pulmonary disease, unspecified; D64.9 Anemia, unspecified; Z99.2 Dependence on renal dialysis; K76.0 Fatty (change of) liver, not elsewhere classified; Z88.0 Allergy status to penicillin; Z88.2 Allergy status to sulfonamides; R74.0 Nonspecific elevation of levels of transaminase and lactic acid dehydrogenase [LDH]; N31.9 Neuromuscular dysfunction of bladder, unspecified; Z93.6 Other artificial openings of urinary tract status; Z93.2 Ileostomy status; L98.8 Other specified disorders of the skin and subcutaneous tissue; Y82.8 Other medical devices associated with adverse incidents; Y92.129 Unspecified place in nursing home as the place of occurrence of the external cause; E86.1 Hypovolemia; Q05.9 Spina bifida, unspecified; Z86.14 Personal history of Methicillin resistant Staphylococcus aureus infection; R47.02 Dysphasia; B96.5 Pseudomonas (aeruginosa) (mallei) (pseudomallei) as the cause of diseases classified elsewhere; B96.20 Unspecified Escherichia coli [E. coli] as the cause of diseases classified elsewhere; Z16.12 Extended spectrum beta lactamase (ESBL) resistance; L89.322 Pressure ulcer of left buttock, stage 2; Y83.3 Surgical operation with formation of external stoma as the cause of abnormal reaction of the patient, or of later complication, without mention of misadventure at the time of the procedure; Z79.899 Other long term (current) drug therapy
CPT/HCPCS: 31720; 36415; 36569; 71010-TC; 74000-TC; 76700-TC; 80048-TC; 80053-TC; 80076-TC; 80150; 80202-TC; 81000-TC; 82272-TC; 82962-TC; 83605-TC; 83690-TC; 83735-TC; 83880; 84100-TC; 84484-TC; 85025-TC; 85610-TC; 85730-TC; 86850-TC; 87040-TC; 87070-TC; 87081-TC; 87086-TC; 87186-TC; 88305-TC; 88313-TC; 90935-TC; 93307-TC; 94003-TC; 94760-TC; 94762-TC; A4216; A4217; A4606; A6248; A6253; A6403; C9113; J0278; J1200; J1815; J1953; J1956; J2185; J2405; J2543; J2704; J3370; J3490; J7030; J7050; J7060; J8597; P9047; Z7610

== ENCOUNTER 2017-02-20 10:41 | Inpatient (IN) | payer OTHER, MEDICARE ==
[~2017-02-20] VITALS: Ht 165.1 cm; Wt 52.2 kg
[2017-02-20 04:00] VITALS: BP 89/54
[~2017-02-20 10:41] MED LIST changes: -ACET-868 GT; -ALBU2.5V38 NEB; -ALLA266C2 TP; +AMLO5TAB2 GT; -ASCO500S2 GT; -CLOT15CR5 TP; +ESCI10TA GT; +INSU100I4 SQ; -INSU100V27 SQ; -IPRA0.2S49 NEB; +LEVE100S GT; -LEVO250T2 PO; +LORA1TAB GT; +METO50TA3 PO; -METO75TA PO; +OMEP20CA10 GT; -ONDA4TAB5 GT; -PANT40SU2 GT; -PREG25CA GT; -RXAMI XX; +SEVE0.8P GT
--- NOTE | 2017-02-20 10:48 | NUR ---
BBPA FROM [facility]: COFFEE-GROUND EMESIS x 2 DAYS. PLACED ON MONITOR. PT ON MECH VENT NO SOB. ON VILLA CATH DRAINING WELL.
[2017-02-20] MEDS ORDERED: BLOO-668 IN (10:59)
[2017-02-20] MEDS ORDERED: ONDA4TAB5 GT (10:59)
[2017-02-20] MEDS ORDERED: CHLO15MO2 MM (10:59)
[2017-02-20] MEDS ORDERED: IPRA3AMP IH (10:59)
[2017-02-20] MEDS ORDERED: ALLA266C2 TP (10:59)
[2017-02-20] MEDS ORDERED: NUTR100037 GT (10:59)
[2017-02-20] MEDS ORDERED: ZOLP5TAB2 GT (10:59)
[2017-02-20] MEDS ORDERED: MIDO10TA GT (10:59)
[2017-02-20] MEDS ORDERED: AMIN30LI4 GT (10:59)
[2017-02-20] MEDS ORDERED: IV NS 0.9% 500 ML BAG IV ONE ×2 (11:00→13:00)
[2017-02-20] MEDS ORDERED: ONDANSETRON HCL/PF 4 MG/2 ML VIAL IV ONE (11:00)
[2017-02-20] MEDS ORDERED: PANTOPRAZOLE 40 MG VIAL IV ONE (11:00)
--- NOTE | 2017-02-20 11:00 | NUR ---
RAC #18 IV ACCESS. BLOOD SAMPLE COLLECTED SENT TO LAB
[2017-02-20] MEDS ORDERED: EPOE1VIA4 SQ (11:02)
[2017-02-20] MEDS ORDERED: PANTOPRAZOLE 40 MG VIAL ONE (11:08)
[2017-02-20 11:10] LABS: BASOPHILS # (AUTO) 0.4 /CMM (0.0-0.2); BASOPHILS % (AUTO) 2.8 % (0.0-2.0); EOSINOPHILS # (AUTO) 0.2 /CMM (0.0-0.7); HEMATOCRIT 47 % (39-51); HEMOGLOBIN 14.8 g/dL (13.5-17.5); LYMPHOCYTES # (AUTO) 1.2 /CMM (0.8-4.8); LYMPHOCYTES % (AUTO) 8.1 % (20.0-44.0); MEAN CORPUSCULAR HEMOGLOBIN 31 PG (26.0-33.0); MEAN CORPUSCULAR HGB CONC 31 g/dl (31.0-36.0); MEAN CORPUSCULAR VOLUME 98 fL (80-96); MONOCYTES # (AUTO) 1.7 /CMM (0.1-1.30); MONOCYTES % (AUTO) 11.2 % (2.0-12.0); NEUTROPHILS # (AUTO) 11.9 /CMM (1.8-8.9); NEUTROPHILS % (AUTO) 76.9 % (43.0-81.0); PLATELET COUNT (AUTO) 371 /CMM (150-450); RDW COEFFICIENT OF VARIATION 17.6 (11.5-15.0); RED BLOOD CELL COUNT(AUTO) 4.82 MIL/uL (4.5-6.0); WHITE BLOOD COUNT (AUTO) 15.4 K/uL (4.3-11.0)
[2017-02-20] MEDS ORDERED: ONDANSETRON HCL/PF 4 MG/2 ML VIAL ONE (11:14)
[2017-02-20 11:29] LABS: CALCIUM, SERUM 12.3 mg/dL (8.5-10.1); CREATININE 5.1 mg/dL (0.6-1.3); POTASSIUM 4.6 mmol/L (3.5-5.1)
[2017-02-20 11:33] LABS: INR 0.95 (0.87-1.13); PROTHROMBIN TIME 9.9 SECS (9.5-12.7)
[2017-02-20 11:35] LABS: ALBUMIN 3.7 g/dL (3.4-5.0); BILIRUBIN,DIRECT 0.2 mg/dL (0.0-0.2); BILIRUBIN,TOTAL 0.6 mg/dL (0.2-1.0); TOTAL PROTEIN, SERUM 11.2 g/dL (6.4-8.2)
--- NOTE | 2017-02-20 11:35 | NUR ---
RT NOTE PT PLACED ON VENT PER MD ORDER. SETTINGS ENDORSED BY TRANSPORT RT AC 16 500 35% +5. PT HAS SHILEY [address] CUFFED TRACH IN PLACE. CUFF INFLATED. TRACH TIE SECURE. ALARMS SET PER PROTOCOL AND AUDIBLE. VENT PLUGGED IN TO RED OUTLET. AMBU BAG AT BED SIDE. PT AWAKE AND ALERT. NO DISTRESS NOTED. WILL CONTINUE TO MONITOR. Addendum: 02/20/17 at 1138 by DARRIAN ALLEN RT Amended: Links added.
[2017-02-20 11:37] LABS: TROPONIN I 0.05 ng/mL (0.00-0.056)
--- NOTE | 2017-02-20 12:29 | NUR ---
PT HYPOTENSIVE VERBAL ORDER FROM DR HIGUERA 500 NS IV
--- NOTE | 2017-02-20 14:27 | NUR ---
GAVE REPORT TO [place] ROOM [address] [facility] [address] CHAIDEZ ADMITTING TRANSFER VIA ACLS PROTOCOL
[2017-02-20 14:52] VITALS: BP 136/80
--- NOTE | 2017-02-20 14:53 | NUR ---
RT NOTE PT TRANSFERRED TO ROOM 115-1. PT BAGGED WITH 02. PT AWAKE AND ALERT. NO DISTRESS NOTED. PT PLACED ON SETTINGS PRESCRIBED. ALARMS SET PER PROTOCOL AND AUDIBLE. VENT PLUGGED IN TO RED OUT LET. AMBU BAG AT BED SIDE. TRACH MIDLINE AND SECURE. Addendum: 02/20/17 at 1455 by DARRIAN ALLEN RT Amended: Links added.
[2017-02-20 16:00] VITALS: BP 89/54
[2017-02-20] MEDS ORDERED: DEXTROSE 50%-WATER 50 ML DISP.SYRIN IV PRN (16:00)
--- NOTE | 2017-02-20 16:00 | NUR ---
RN INITIAL NOTE PATIENT RECEIVED FROM ER VIA GURNEY. PATIENT IS AWAKE, ALERT AND ORIENTED. NON-VERBAL MOUTHS WORDS. HAS TRACH: SHILEY #6, SATING WELL ON VENT SETTINGS. NO S/S OF RESPIRATORY DISTRESS OR SOB. SINUS RHYTHM ON TELE MONITOR. SUPRAPUBIC CATHETER DRAINING TO GRAVITY. GTUBE, FLUSHED, PATENT, PLACEMENT VERIFIED. NPO STATUS PENDING EGD TOMORROW. IV SITE FLUSHED, PATENT. SKIN IS WARM AND DRY TO TOUCH. INTAKE PICTURES TAKEN. SAFETY PRECAUTIONS IMPLEMENTED, BED IN LOCKED, LOW POSITION WITH TWO SIDE RAILS UP. WILL CONTINUE TO MONITOR.
[2017-02-20] MEDS ORDERED: RENAL NOVASOURCE 1,000 ML BOTTLE GT PRN (16:30)
[2017-02-20 17:04] LABS: BASOPHILS % (AUTO) 0.2 % (0.0-2.0); EOSINOPHILS # (AUTO) 0.1 /CMM (0.0-0.7); EOSINOPHILS % (AUTO) 0.8 % (0.0-6.0); HEMATOCRIT 43 % (39-51); HEMOGLOBIN 13.7 g/dL (13.5-17.5); LYMPHOCYTES # (AUTO) 0.6 /CMM (0.8-4.8); LYMPHOCYTES % (AUTO) 3.9 % (20.0-44.0); MEAN CORPUSCULAR HEMOGLOBIN 31 PG (26.0-33.0); MEAN CORPUSCULAR HGB CONC 32 g/dl (31.0-36.0); MEAN CORPUSCULAR VOLUME 98 fL (80-96); MONOCYTES # (AUTO) 1.7 /CMM (0.1-1.30); MONOCYTES % (AUTO) 10.9 % (2.0-12.0); NEUTROPHILS # (AUTO) 12.9 /CMM (1.8-8.9); NEUTROPHILS % (AUTO) 84.2 % (43.0-81.0); PLATELET COUNT (AUTO) 316 /CMM (150-450); RDW COEFFICIENT OF VARIATION 18.5 (11.5-15.0); RED BLOOD CELL COUNT(AUTO) 4.42 MIL/uL (4.5-6.0); WHITE BLOOD COUNT (AUTO) 15.4 K/uL (4.3-11.0)
[2017-02-20] MEDS: BLOOD SUGAR DIAGNOSTIC 1 EACH STRIP IN SCH ×2 (18:56→23:08)
--- NOTE | 2017-02-20 18:57 | NUR ---
RN CLOSING NOTE ALL MD ORDERS CARRIED OUT. PATIENTS NEEDS ANTICIPATED. PATIENT KEPT CLEAN AND DRY. SAFETY PRECAUTIONS IN PLACE AT ALL TIMES. WILL GIVE REPORT TO PM RN FOR CLAUDIA.
[2017-02-20 20:00] VITALS: BP 101/70
--- NOTE | 2017-02-20 20:24 | NUR ---
RN INITIAL TELE NOTE PATIENT RECEIVED FROM GERMAINE MICHELLE. PATIENT IS AWAKE, ALERT AND ORIENTED. NON-VERBAL MOUTHS WORDS. HAS TRACH: SHILEY #6, SATING WELL ON VENT SETTINGS. NO S/S OF RESPIRATORY DISTRESS OR SOB. SINUS RHYTHM ON TELE MONITOR. SUPRAPUBIC CATHETER DRAINING TO GRAVITY. GTUBE, FLUSHED, PATENT, PLACEMENT VERIFIED. NPO STATUS PENDING EGD TOMORROW. IV SITE FLUSHED, PATENT. SKIN IS WARM AND DRY TO TOUCH. INTAKE PICTURES TAKEN. SAFETY PRECAUTIONS IMPLEMENTED, BED IN LOCKED, LOW POSITION WITH TWO SIDE RAILS UP. WILL CONTINUE TO MONITOR
[2017-02-20 20:36] VITALS: BP 101/70
[2017-02-20 20:36] LABS: BASOPHILS % (AUTO) 0.3 % (0.0-2.0); EOSINOPHILS # (AUTO) 0.3 /CMM (0.0-0.7); EOSINOPHILS % (AUTO) 1.5 % (0.0-6.0); HEMATOCRIT 41 % (39-51); LYMPHOCYTES # (AUTO) 0.7 /CMM (0.8-4.8); LYMPHOCYTES % (AUTO) 4.2 % (20.0-44.0); MEAN CORPUSCULAR HEMOGLOBIN 31 PG (26.0-33.0); MEAN CORPUSCULAR HGB CONC 32 g/dl (31.0-36.0); MEAN CORPUSCULAR VOLUME 98 fL (80-96); MONOCYTES # (AUTO) 1.7 /CMM (0.1-1.30); MONOCYTES % (AUTO) 10.4 % (2.0-12.0); NEUTROPHILS # (AUTO) 13.7 /CMM (1.8-8.9); NEUTROPHILS % (AUTO) 83.6 % (43.0-81.0); PLATELET COUNT (AUTO) 316 /CMM (150-450); RDW COEFFICIENT OF VARIATION 18.5 (11.5-15.0); WHITE BLOOD COUNT (AUTO) 16.3 K/uL (4.3-11.0)
[2017-02-20] MEDS: IV NS 0.9% 1,000 ML BAG IV PRN ×2 (21:09→21:19)
[2017-02-20] MEDS: PANTOPRAZOLE 40 MG VIAL IV SCH (21:09)
[2017-02-21] VITALS (12 sets, daily range): BP systolic 85–136; BP diastolic 52–70
[2017-02-21] MEDS: BLOOD SUGAR DIAGNOSTIC 1 EACH STRIP IN SCH ×4 (05:19→23:48)
--- NOTE | 2017-02-21 06:04 | NUR ---
RN CLOSING TELE NOTE PATIENT ENDORSED TO AM SHIFT. PATIENT IS AWAKE, ALERT AND ORIENTED. NON-VERBAL MOUTHS WORDS. HAS TRACH: SHILEY #6, SATING WELL ON VENT SETTINGS. NO S/S OF RESPIRATORY DISTRESS OR SOB. SINUS RHYTHM ON TELE MONITOR. SUPRAPUBIC CATHETER DRAINING TO GRAVITY. GTUBE, FLUSHED, PATENT, PLACEMENT VERIFIED. NPO STATUS PENDING EGD TOMORROW. IV SITE FLUSHED, PATENT. SKIN IS WARM AND DRY TO TOUCH. INTAKE PICTURES TAKEN. SAFETY PRECAUTIONS IMPLEMENTED, BED IN LOCKED, LOW POSITION WITH TWO SIDE RAILS UP. WILL CONTINUE TO MONITOR
[2017-02-21 06:42] LABS: EOSINOPHILS # (AUTO) 0.4 /CMM (0.0-0.7); HEMATOCRIT 41 % (39-51); HEMOGLOBIN 12.7 g/dL (13.5-17.5); LYMPHOCYTES # (AUTO) 0.7 /CMM (0.8-4.8); LYMPHOCYTES % (AUTO) 5.7 % (20.0-44.0); MEAN CORPUSCULAR HEMOGLOBIN 31 PG (26.0-33.0); MEAN CORPUSCULAR HGB CONC 31 g/dl (31.0-36.0); MEAN CORPUSCULAR VOLUME 98 fL (80-96); MONOCYTES # (AUTO) 1.6 /CMM (0.1-1.30); MONOCYTES % (AUTO) 12.2 % (2.0-12.0); NEUTROPHILS # (AUTO) 10.3 /CMM (1.8-8.9); NEUTROPHILS % (AUTO) 79.1 % (43.0-81.0); PLATELET COUNT (AUTO) 320 /CMM (150-450); RDW COEFFICIENT OF VARIATION 18.4 (11.5-15.0); RED BLOOD CELL COUNT(AUTO) 4.17 MIL/uL (4.5-6.0)
[2017-02-21 06:56] LABS: BILIRUBIN,TOTAL 0.6 mg/dL (0.2-1.0); CALCIUM, SERUM 11.1 mg/dL (8.5-10.1); MAGNESIUM 2.5 mg/dL (1.8-2.4); PHOSPHORUS 6.8 mg/dL (2.5-4.9); POTASSIUM 4.1 mmol/L (3.5-5.1); TOTAL PROTEIN, SERUM 9.3 g/dL (6.4-8.2)
--- NOTE | 2017-02-21 07:30 | NUR ---
ROAD FREIGHT BRAKE COUPLER OPENING RECEIVED PATIENT AWAKE DENIES SOB, DIFFICULTY BREATHING OR PAIN AT THIS TIME. VENT DEPENDENT AND STABLE. NO SOB, DIFFICULTY BREATHING OR PAIN. PATIENT DISCONNECTING TRACH FROM VENT WITH RIGHT HAND ON ACCIDENT. REPOSITIONED AND SITTING OUTSIDE PATIENT ROOM FOR SAFETY AT THIS TIME. PATIENT NEEDS IN REACH. NPO AT THIS TIME PENDING EGD WITH DR XIONG. PATIENT BED LOWERED AND LOCKED, RAILS UPX3 FOR SAFETY HOB ELEVATED. WILL ROUND Q2H OR LESS PER NEEDS.
[2017-02-21] MEDS ORDERED: IV NS 0.9% 1,000 ML IV PRN (08:00)
[2017-02-21] MEDS ORDERED: EPOETIN ALFA (2000 UNIT) 2,000 UNIT/ML VIAL IV SCH (08:30)
[2017-02-21] MEDS ORDERED: LORAZEPAM 1 MG TABLET GT PRN (08:30)
[2017-02-21] MEDS ORDERED: INSULIN ASPART HUMALOG/NOVOLOG 100 UNIT/ML CARTRIDGE SQ PRN (08:30)
[2017-02-21] MEDS ORDERED: LEVETIRACETAM SOL (5 ML) 100 MG/ML UDC GT SCH (09:00)
[2017-02-21] MEDS: MIDODRINE HCL (5MG) 5 MG TABLET GT SCH ×3 (09:00→16:51)
[2017-02-21] MEDS: GABAPENTIN 300 MG CAPSULE GT SCH ×3 (09:00→16:51)
[2017-02-21] MEDS: AMLODIPINE BESYLATE 5 MG TABLET GT SCH (09:00)
[2017-02-21] MEDS ORDERED: ONDANSETRON 4 MG TAB.RAPDIS GT PRN (09:00)
--- NOTE | 2017-02-21 09:00 | NUR ---
MANAGER STERILE NOTES MESSAGE TO DR XIONG TO SEE IF PATIENT IS HAVING EGD TODAY. AWAITING RESPONSE
[2017-02-21] MEDS: Z GUARD REMEDY 2 OZ OINT TP PRN ×2 (09:45→16:52)
[2017-02-21] MEDS: PANTOPRAZOLE 40 MG VIAL IV SCH ×2 (09:46→22:14)
--- NOTE | 2017-02-21 10:40 | NUR ---
DIRECTOR ONCOLOGY NOTES PATIENT RIGHT WRIST LOOSELY RESTRAINED JUST TO PREVENT PATIENT FROM BENDING ARM UP TO REMOVE TRACH AGAIN. PATIENT STATES HE UNDERSTANDS ANDIS AGREEABLE WITH RESTRAINT AND IS SORRY HE KEEPS REMOVING TRACH HE IS NOT MEANING TO. MULTIPLE ATTEMPTS TO REPOSITION, COVER ARMS WITH BLANKETS PER PATIENT REQUEST AND ROOM NEXT TO NURSES STATION. EVEN WITH MYSELF SITTING OUTSIDE THE ROOM TO CHART TO BE CLOSER TO PATIENT ALL DONE PRIOR TO RESTRAINING RIGHT ARM. WILL CONTINUE TO MONITOR NEED OF RESTRAINT
[2017-02-21] MEDS: LEVETIRACETAM (500MG) 250 MG in IV NS 0.9% 100 ML IV SCH ×2 (11:15→22:18)
--- NOTE | 2017-02-21 11:23 | NUR ---
[employer] AND [employer] PARALEGAL NOTES PATIENT BLOOD SUGAR DROPPING. MESSAGE TO DR POSEY FOR IVF WITH DEXTROSE UNTIL PATIENT COMPLETES NPO STATUS.
[2017-02-21] MEDS ORDERED: IV D5/ 0.9% NACL 1,000 ML IV PRN (11:30)
--- NOTE | 2017-02-21 11:30 | NUR ---
ARMAMENT MECHANIC NOTES SPOKE WITH DR CHAIDEZ PER MD WHILE PATIENT IS NPO HAVE D5NS AT 50ML/HR RUNNING AND ONCE PATIENT TUBE FEEDING RESUMED DC D5 IVF AND ORDER NS IVF AT 50ML/HR
--- NOTE | 2017-02-21 13:24 | NUR ---
WORKERS' COMPENSATION MEDIATOR NOTES SPOKE WITH CALI AND PATIENT SISTER BERRY MAKES MEDICAL DECISIONS FOR PATIENT. SPOKE WITH BERYR AND CONFIRMED OK FOR EGD TODAY. PER BERRY SHE IS AGREEING TO THIS PROCEDURE SHE TOLD STAFF YESTERDAY. DR XIONG AT BEDSIDE FOR EGD
--- NOTE | 2017-02-21 13:36 | NUR ---
VAMP MARKER NOTES DR SETH AT BEDSIDE. PER MD PEG TUBE NOT IN CORRECT PLACEMENT. CALLED AND SPOKE WITH SISTER BERRY AND DR XIONG OBTAINED CONSENT FOR PEG PLACEMENT.
--- NOTE | 2017-02-21 13:50 | NUR ---
LACQUER DIPPING MACHINE OPERATOR NOTES PER DR XIONG RESUME ORDERED TUBE FEEDING AND ORDERED MEDICATIONS.
[2017-02-21] MEDS: RENAL NOVASOURCE 1,000 ML BOTTLE GT PRN (13:51)
[2017-02-21] MEDS: ESCITALOPRAM OXALATE (10 MG) 10 MG TABLET GT SCH (13:52)
[2017-02-21] MEDS: METOCLOPRAMIDE HCL 10 MG TABLET GT SCH ×2 (13:52→21:00)
[2017-02-21] MEDS: VIT B CMPLX 3/FA/VIT C/BIOTIN 1 TAB TABLET PO SCH (13:52)
[2017-02-21] MEDS: PROSOURCE / PROSTAT (PYXIS) 30 ML UDC GT SCH ×2 (13:53→16:51)
[2017-02-21] MEDS: SEVELAMER CARBONATE 0.8 GM POWD.PACK GT SCH ×2 (13:54→17:05)
[2017-02-21] MEDS: IV NS 0.9% 1,000 ML IV PRN (14:02)
--- NOTE | 2017-02-21 15:00 | NUR ---
BRANDING SPECIALIST NOTES PER MD BP OKAY IF SBP 90 OR OVER
--- NOTE | 2017-02-21 16:29 | NUR ---
X RAY SERVICE TECHNICIAN NOTES MESSAGE TO BLACKSMITH SUPERVISOR IN RE TO PATIENT LOW BP S/P PEG/EGD
--- NOTE | 2017-02-21 17:00 | NUR ---
CARDIOVASCULAR TECH NOTES ANOTHER MESSAGE LEFT TO TECHNICAL SUPPORT INTERN MD CHAIDEZ
--- NOTE | 2017-02-21 17:28 | NUR ---
OPERATIONS CLERK NOTES PER DR CHAIDEZ GIVE 250ML NS BOLUS AND IF BP SYSTOLIC OVER 90 THIS IS OKAY AND JUST MONITOR
[2017-02-21] MEDS ORDERED: IV NS 0.9% 250 ML IV ONE (17:30)
--- NOTE | 2017-02-21 18:59 | NUR ---
TRUCK ENGINE TECHNICIAN CLOSING PATIENT STABLE, VS STABLE AT THIS TIME PER MD. PATIENT STATES NO COMPLICATIONS. VENT STABLE. NO S/S PAIN, SOB DIFFICULTY BREATHING. PATIENT RESTING WELL. ALL DUE MEDS GIVEN AND ALL NEEDS MET. G TUBE RESIDUAL NONE NOTED TOLERATING WELL. PATIENT CARE ENDORSED TO RN FOR CLAUDIA.
--- NOTE | 2017-02-21 19:20 | NUR ---
WATCHER LOOKOUT TOWER NOTES, RECEIVE PATIENT IN BED SLEEPING, IN VENT SETTINGS TOLERATED WELL, NO S/S OF CUTE DISTRESS OR DISCOMFORT NOTED AT THIS TIME, WITH RIGHT AC PIV LINE, ON NS INFUSING WELL 250ML/HR, GT FEEDING PLACE WITH NO RESIDUAL AT THIS TIME, INFUSING WELL AND PT TOLERATED WELL, HOB ELEVATED AT ALL TIME FOR ASPIRATION PRECAUTIONS, F/C IN PLACE NOTED WITH MINIMAL YELLOW COLOR URINE IN THE BAG AT THIS TIME, REPOSITIONED PROVIDED, NOTED DRY AND CLEAN AT THIS TIME, BED LOCKED AND IN LOWEST POSITION, CALL LIGHT W/I REACH, WILL CONTINUE TO MONITOR CLOSELY.
[2017-02-21] MEDS: INSULIN REGULAR, HUMAN 100 UNIT/ML 3 ML VIAL SQ PRN (23:49)
[2017-02-22] VITALS (8 sets, daily range): BP systolic 85–165; BP diastolic 46–95
[2017-02-22] MEDS: BLOOD SUGAR DIAGNOSTIC 1 EACH STRIP IN SCH ×4 (05:46→23:44)
[2017-02-22] MEDS: INSULIN REGULAR, HUMAN 100 UNIT/ML 3 ML VIAL SQ PRN ×2 (05:47→11:55)
--- NOTE | 2017-02-22 06:50 | NUR ---
HOUSEHOLD ASSISTANT NOTES, PATIENT IN BED SLEEPING IN VENT SETTINGS TOLERATED WELL, NO S/S OF ACUTE DISTRESS OR DISCOMFORT NOTED, IVF INFUSING WELL AND NO S/S OF INFILTRATION OR ABNORMALITY NOTED AT THIS TIME, GTF RUNNING WELL AND 30ML RESIDUAL NOTED AT THIS TIME, WITH COLOSTOMY BAG CHANGE AT THIS TIME, SUPRAPUBIC CATHETER DRAINING YELLOW URINE BY GRAVITY, KEPT DRY AN CLEAN, BED LOCKED AND IN LOWEST POSITION, CALL LIGHT W/I REACH, WILL ENDORSE CONTINUITY OF CARE TO NEXT SHIFT.
[2017-02-22 07:22] LABS: BASOPHILS % (AUTO) 0.1 % (0.0-2.0); EOSINOPHILS # (AUTO) 0.7 /CMM (0.0-0.7); EOSINOPHILS % (AUTO) 5.3 % (0.0-6.0); HEMATOCRIT 40 % (39-51); HEMOGLOBIN 12.7 g/dL (13.5-17.5); LYMPHOCYTES # (AUTO) 0.7 /CMM (0.8-4.8); LYMPHOCYTES % (AUTO) 5.4 % (20.0-44.0); MEAN CORPUSCULAR HEMOGLOBIN 31 PG (26.0-33.0); MEAN CORPUSCULAR HGB CONC 32 g/dl (31.0-36.0); MEAN CORPUSCULAR VOLUME 99 fL (80-96); MONOCYTES # (AUTO) 1.3 /CMM (0.1-1.30); MONOCYTES % (AUTO) 9.4 % (2.0-12.0); NEUTROPHILS # (AUTO) 10.7 /CMM (1.8-8.9); NEUTROPHILS % (AUTO) 79.8 % (43.0-81.0); PLATELET COUNT (AUTO) 301 /CMM (150-450); RED BLOOD CELL COUNT(AUTO) 4.06 MIL/uL (4.5-6.0); WHITE BLOOD COUNT (AUTO) 13.5 K/uL (4.3-11.0)
[2017-02-22 07:48] LABS: CALCIUM, SERUM 10.8 mg/dL (8.5-10.1); CREATININE 7.1 mg/dL (0.6-1.3); MAGNESIUM 2.6 mg/dL (1.8-2.4); PHOSPHORUS 7.8 mg/dL (2.5-4.9); POTASSIUM 4.2 mmol/L (3.5-5.1)
[2017-02-22] MEDS: AMLODIPINE BESYLATE 5 MG TABLET GT SCH (09:00)
[2017-02-22] MEDS: SEVELAMER CARBONATE 0.8 GM POWD.PACK GT SCH ×3 (09:03→17:08)
[2017-02-22] MEDS: GABAPENTIN 300 MG CAPSULE GT SCH ×3 (09:03→16:11)
[2017-02-22] MEDS: VIT B CMPLX 3/FA/VIT C/BIOTIN 1 TAB TABLET PO SCH (09:03)
[2017-02-22] MEDS: PANTOPRAZOLE 40 MG VIAL IV SCH (09:03)
[2017-02-22] MEDS: ESCITALOPRAM OXALATE (10 MG) 10 MG TABLET GT SCH (09:03)
[2017-02-22] MEDS: Z GUARD REMEDY 2 OZ OINT TP PRN (09:04)
[2017-02-22] MEDS: PROSOURCE / PROSTAT (PYXIS) 30 ML UDC GT SCH ×2 (09:04→16:11)
[2017-02-22] MEDS: METOCLOPRAMIDE HCL 10 MG TABLET GT SCH ×2 (09:04→20:26)
[2017-02-22] MEDS: MIDODRINE HCL (5MG) 5 MG TABLET GT SCH ×3 (09:10→16:11)
[2017-02-22] MEDS: LEVETIRACETAM (500MG) 250 MG in IV NS 0.9% 100 ML IV SCH ×2 (09:10→20:26)
[2017-02-22 10:37] LABS: EOSINOPHILS % (MANUAL) 2 % (0-4); LYMPHOCYTES % (MANUAL) 6 % (16-48); MONOCYTES % (MANUAL) 3 % (0-11.0); NEUTROPHILS % (MANUAL) 89 (42-76)
--- NOTE | 2017-02-22 11:13 | NUR ---
MINE INSPECTOR NOTES PATIENT BP ELEVATED. WILL SLOW TRANSFUSION AND RECHECK
--- NOTE | 2017-02-22 12:00 | NUR ---
TRAVEL FREIGHT AND PASSENGER AGENT NOTES PT BP SHOWING ELEVATED HOWEVER PATIENT IS LAYING ALL PRESSURE ON LEFT LEG DURING BP. WILL REPOSITION AND TRY AGAIN
--- NOTE | 2017-02-22 12:06 | NUR ---
NATURAL RESOURCES SPECIALIST NOTES PATIENT MORE LETHARGIC TODAY. BP 82 SYSTOLIC. MESSAGE LEFT FOR EMPLOYEE RELATIONS ADVISOR MD. BS STABLE
--- NOTE | 2017-02-22 12:10 | NUR ---
WATER TAXI CAPTAIN NOTES PER DR POSEY PATIENT IS TO HAVE STAT ABG AND 500ML NS BOLUS X1
[2017-02-22] MEDS ORDERED: IV NS 0.9% 500 ML IV ONE (12:30)
[2017-02-22 12:47] LABS: ABG BASE EXCESS -7.7 mmol/L; ABG OXYGEN SATURATION 98.2 % (92.0-98.5); ABG PH 7.311 (7.350-7.450); ABG PO2 163.4 mmHg (75.0-100.0); AaDO2 44.3 mmHg; COHb 0.3 % (0.5-1.5); O2Hb 96.9 % (94.0-97.0); PEEP,BG 0 cm H2O; SITE, ABG Right Radial; VT, ABG 500 mL
[2017-02-22] MEDS: IV NS 0.9% 1,000 ML IV PRN (13:20)
[2017-02-22] MEDS: RENAL NOVASOURCE 1,000 ML BOTTLE GT PRN (13:21)
--- NOTE | 2017-02-22 14:35 | NUR ---
telescope maintenance notes dr gwen del toro at bedside
--- NOTE | 2017-02-22 14:40 | NUR ---
television host notes notified dr del toro patient more lethargic today and patient repeats he just feels tired. per dr del toro order blood culture, urine culture, and procalcitonin on patient.
[2017-02-22] MEDS ORDERED: NYSTATIN (PYXIS) 500,000 UNIT/5 ML ORAL.SUSP PO SCH (17:00)
--- NOTE | 2017-02-22 18:33 | NUR ---
MANAGER TREASURY CLOSING PATIENT STABLE, VS STABLE AT THIS TIME. HD RN AT BEDSIDE FOR HD. PATIENT STATES NO COMPLICATIONS. VENT STABLE. NO S/S PAIN, SOB DIFFICULTY BREATHING. PATIENT RESTING WELL. ALL DUE MEDS GIVEN AND ALL NEEDS MET. G TUBE RESIDUAL NONE NOTED TOLERATING WELL. PATIENT CARE ENDORSED TO RN FOR CLAUDIA.
--- NOTE | 2017-02-22 19:52 | NUR ---
RIGGING SLINGER INITIAL NOTE PT RECEIVED IN NO ACUTE DISTRESS. CURRENTLY HAVING HD DONE SINCE BP IS WNL. EARLIER REPORTS OF HYPOTENSION DURING THE DAY. PT HAS A SUPRAPUBIC CATHETER THAT WAS IRRIGATED RECENTLY. PT HAS A GTF NOVASOURCE RUNNING AT 45CC/HR. RAC 18G AND RFA 22G THAT IS CLEAN DRY AND INTACT. 500 ML BOLUS WAS GIVEN EARLIER FOR HYPOTENSION AND SINCE IS WNL BUT ON THE LOWER SIDE. COMFORT AND SAFETY MEASURES TO BE ENSURED. WILL CONTINUE TO MONITOR PT.
[2017-02-22] MEDS: PANTOPRAZOLE 40 MG/PACK PACK GT SCH (20:26)
[2017-02-22] MEDS: NYSTATIN TOP POWDER 15 GM BOTTLE TP SCH (20:27)
[2017-02-22] MEDS: ZOLPIDEM TARTRATE 5 MG TABLET GT PRN (20:28)
[2017-02-23] VITALS (7 sets, daily range): BP systolic 91–141; BP diastolic 56–77
--- NOTE | 2017-02-23 03:33 | NUR ---
RN NOTE AT 0030 I CHECKED RESIDUAL IN GT AND RECEIVED 150-200 CC. HELD GTF. WILL RECHECK IN 2-3 HOURS AND MONITOR SITUATION. IVF WERE D/C'D DURING THE DAY DUE TO LUNG SOUNDS "WET". TOO MUCH FLUID BUILD UP.
--- NOTE | 2017-02-23 03:42 | NUR ---
RN NOTE PT BS IS 93. WILL CONTINUE TO MONITOR FOR ANY CHANGES.
--- NOTE | 2017-02-23 03:45 | NUR ---
RN NOTE GT RESIDUAL DOWN TO 35. EARLIER IT WAS 150-200, THEN 45. NOW 35. PUT IN 15 CC OF WATER. WILL CONTINUE TO MONITOR.
[2017-02-23] MEDS: BLOOD SUGAR DIAGNOSTIC 1 EACH STRIP IN SCH ×4 (05:16→23:25)
--- NOTE | 2017-02-23 05:50 | NUR ---
RN CLOSING NOTE PT IN STABLE CONDITION ON AND OFF SLEEPING. DUE MEDICATIONS GIVEN ORDERED AND TOLERATED. GTF WILL BE STARTED AGAIN BEFORE END OF SHIFT AND INFO REGARDING ENDORSED TO AM NURSE. TOLERATING VENT/TRACH SETTINGS WELL.
--- NOTE | 2017-02-23 07:19 | NUR ---
PARK INTERPRETIVE SPECIALIST CLOSING PATIENT STABLE, VS STABLE AT THIS TIME. PATIENT STATES NO COMPLICATIONS. VENT STABLE. NO S/S PAIN, SOB DIFFICULTY BREATHING. PATIENT RESTING WELL. G TUBE RESIDUAL NONE NOTED AT THIS TIME;WILL MONITOR INCREASED RESIDUAL THROUGHOUT THE NIGHT. WILL ROUND Q2H OR LESS PER NEEDS Addendum: 02/23/17 at 1849 by DHARA MATHIAS RN rn opening
[2017-02-23 07:24] LABS: CALCIUM, SERUM 10.1 mg/dL (8.5-10.1); CREATININE 5.6 mg/dL (0.6-1.3); MAGNESIUM 2.3 mg/dL (1.8-2.4); PHOSPHORUS 5.6 mg/dL (2.5-4.9)
[2017-02-23 07:50] LABS: BASOPHILS % (AUTO) 0.2 % (0.0-2.0); EOSINOPHILS # (AUTO) 0.7 /CMM (0.0-0.7); HEMATOCRIT 38 % (39-51); HEMOGLOBIN 11.9 g/dL (13.5-17.5); LYMPHOCYTES # (AUTO) 0.8 /CMM (0.8-4.8); LYMPHOCYTES % (AUTO) 7.7 % (20.0-44.0); MEAN CORPUSCULAR HEMOGLOBIN 31 PG (26.0-33.0); MEAN CORPUSCULAR HGB CONC 31 g/dl (31.0-36.0); MEAN CORPUSCULAR VOLUME 98 fL (80-96); MONOCYTES # (AUTO) 1.3 /CMM (0.1-1.30); MONOCYTES % (AUTO) 12.1 % (2.0-12.0); NEUTROPHILS # (AUTO) 8.1 /CMM (1.8-8.9); PLATELET COUNT (AUTO) 273 /CMM (150-450); RDW COEFFICIENT OF VARIATION 18.6 (11.5-15.0); RED BLOOD CELL COUNT(AUTO) 3.86 MIL/uL (4.5-6.0)
[2017-02-23] MEDS: ESCITALOPRAM OXALATE (10 MG) 10 MG TABLET GT SCH (08:40)
[2017-02-23] MEDS: LEVETIRACETAM (500MG) 250 MG in IV NS 0.9% 100 ML IV SCH (08:40)
[2017-02-23] MEDS: MIDODRINE HCL (5MG) 5 MG TABLET GT SCH ×3 (08:40→17:18)
[2017-02-23] MEDS: Z GUARD REMEDY 2 OZ OINT TP PRN ×2 (08:40→17:18)
[2017-02-23] MEDS: PROSOURCE / PROSTAT (PYXIS) 30 ML UDC GT SCH ×2 (08:40→17:19)
[2017-02-23] MEDS: GABAPENTIN 300 MG CAPSULE GT SCH ×3 (08:40→17:18)
[2017-02-23] MEDS: SEVELAMER CARBONATE 0.8 GM POWD.PACK GT SCH ×3 (08:40→17:18)
[2017-02-23] MEDS: VIT B CMPLX 3/FA/VIT C/BIOTIN 1 TAB TABLET PO SCH (08:40)
[2017-02-23] MEDS: METOCLOPRAMIDE HCL 10 MG TABLET GT SCH ×2 (08:40→21:42)
[2017-02-23] MEDS: PANTOPRAZOLE 40 MG/PACK PACK GT SCH ×2 (08:41→21:42)
[2017-02-23 10:45] LABS: EOSINOPHILS % (MANUAL) 6 % (0-4); LYMPHOCYTES % (MANUAL) 8 % (16-48); MONOCYTES % (MANUAL) 8 % (0-11.0); NEUTROPHILS % (MANUAL) 78 (42-76)
--- NOTE | 2017-02-23 11:05 | NUR ---
ORIENTATION AND MOBILITY SPECIALIST NOTES MESSAGE TO DR POSEY TO NOTIFY PATIENT HR 40'S. ASYMPTOMATIC.
--- NOTE | 2017-02-23 11:45 | NUR ---
PLANT OPERATOR NOTES DR MIRANDA AT BEDSIDE
--- NOTE | 2017-02-23 12:45 | NUR ---
TECHNICAL PROJECT LEAD NOTES DR POSEY AT BEDSIDE
[2017-02-23] MEDS: NEO/BACI/POLY B/HC OINT (15GM) 15 GM TUBE TP SCH ×2 (12:47→22:40)
[2017-02-23] MEDS: NYSTATIN TOP POWDER 15 GM BOTTLE TP SCH ×2 (12:47→21:44)
[2017-02-23] MEDS: RENAL NOVASOURCE 1,000 ML BOTTLE GT PRN (15:24)
--- NOTE | 2017-02-23 18:50 | NUR ---
CABLE FERRYBOAT OPERATOR CLOSING PATIENT STABLE, VS STABLE AT THIS TIME. PATIENT STATES NO COMPLICATIONS. VENT STABLE. NO S/S PAIN, SOB DIFFICULTY BREATHING. PATIENT RESTING WELL. ALL DUE MEDS GIVEN AND ALL NEEDS MET. G TUBE RESIDUAL NONE NOTED TOLERATING WELL. SKIN CARE COMPLETED AGAIN PRIOR TO CHANGE OF SHIFT. PATIENT CARE ENDORSED TO RN FOR CLAUDIA.
--- NOTE | 2017-02-23 19:50 | NUR ---
EMERGENCY ROOM NURSE INITIAL NOTE PT RECEIVED IN NO ACUTE DISTRESS. ON TELE WITH SB 48. TOLERATING VENT/TRACH SETTINGS WELL WITH AUDIBLE CONGESTION SO DEEP SUCTIONING DONE. PT HAS A SUPRAPUBIC CATHETER THAT WAS IRRIGATED RECENTLY. PT HAS A GTF NOVASOURCE RUNNING AT 45CC/HR WITH 80CC OF RESIDUAL SO TEMP STOPPED FEEDING. RAC 18G AND RFA 22G THAT ARE CLEAN DRY AND INTACT. COLOSTOMY BAG IS DRAINING YELLOW/GREEN DRAINAGE. COMFORT AND SAFETY MEASURES TO BE ENSURED. WILL CONTINUE TO MONITOR PT THROUGHOUT THE SHIFT.
[2017-02-23] MEDS: LEVETIRACETAM (250 MG) 250 MG TABLET PO SCH (21:42)
[2017-02-23] MEDS: ZOLPIDEM TARTRATE 5 MG TABLET GT PRN (21:42)
[2017-02-24] VITALS (7 sets, daily range): BP systolic 87–159; BP diastolic 55–82
[2017-02-24] MEDS: BLOOD SUGAR DIAGNOSTIC 1 EACH STRIP IN SCH ×4 (05:21→23:38)
--- NOTE | 2017-02-24 07:30 | NUR ---
PUBLIC HEALTH POLICY ANALYST OPENING PATIENT STABLE, VS STABLE AT THIS TIME. PATIENT STATES NO COMPLICATIONS. VENT STABLE. NO S/S PAIN, SOB DIFFICULTY BREATHING. PATIENT RESTING WELL. G TUBE RESIDUAL NONE NOTED AT THIS TIME;WILL MONITOR INCREASED RESIDUAL THROUGHOUT THE NIGHT. WILL ROUND Q2H OR LESS PER NEEDS. PATIENT OFFLOADED AND REPOSITIONED. DRESSINGS INTACT AND CLEAN
[2017-02-24 08:11] LABS: BASOPHILS % (AUTO) 0.4 % (0.0-2.0); EOSINOPHILS # (AUTO) 0.6 /CMM (0.0-0.7); EOSINOPHILS % (AUTO) 4.6 % (0.0-6.0); HEMATOCRIT 39 % (39-51); HEMOGLOBIN 12.4 g/dL (13.5-17.5); LYMPHOCYTES # (AUTO) 0.8 /CMM (0.8-4.8); LYMPHOCYTES % (AUTO) 6.2 % (20.0-44.0); MEAN CORPUSCULAR HEMOGLOBIN 31 PG (26.0-33.0); MEAN CORPUSCULAR HGB CONC 32 g/dl (31.0-36.0); MEAN CORPUSCULAR VOLUME 99 fL (80-96); MONOCYTES # (AUTO) 1.5 /CMM (0.1-1.30); MONOCYTES % (AUTO) 11.6 % (2.0-12.0); NEUTROPHILS # (AUTO) 9.7 /CMM (1.8-8.9); NEUTROPHILS % (AUTO) 77.2 % (43.0-81.0); PLATELET COUNT (AUTO) 287 /CMM (150-450); RDW COEFFICIENT OF VARIATION 18.4 (11.5-15.0); RED BLOOD CELL COUNT(AUTO) 3.99 MIL/uL (4.5-6.0); WHITE BLOOD COUNT (AUTO) 12.5 K/uL (4.3-11.0)
[2017-02-24 08:27] LABS: CALCIUM, SERUM 10.8 mg/dL (8.5-10.1); CREATININE 6.9 mg/dL (0.6-1.3); MAGNESIUM 2.5 mg/dL (1.8-2.4); POTASSIUM 3.8 mmol/L (3.5-5.1)
[2017-02-24] MEDS: PANTOPRAZOLE 40 MG/PACK PACK GT SCH ×2 (08:38→21:23)
[2017-02-24] MEDS: METOCLOPRAMIDE HCL 10 MG TABLET GT SCH ×2 (08:38→21:23)
[2017-02-24] MEDS: LEVETIRACETAM (250 MG) 250 MG TABLET PO SCH ×2 (08:38→21:23)
[2017-02-24] MEDS: SEVELAMER CARBONATE 0.8 GM POWD.PACK GT SCH ×3 (08:39→17:29)
[2017-02-24] MEDS: GABAPENTIN 300 MG CAPSULE GT SCH ×3 (08:39→16:23)
[2017-02-24] MEDS: VIT B CMPLX 3/FA/VIT C/BIOTIN 1 TAB TABLET PO SCH (08:39)
[2017-02-24] MEDS: MIDODRINE HCL (5MG) 5 MG TABLET GT SCH ×3 (08:39→16:50)
[2017-02-24] MEDS: ESCITALOPRAM OXALATE (10 MG) 10 MG TABLET GT SCH (08:39)
[2017-02-24] MEDS: NYSTATIN TOP POWDER 15 GM BOTTLE TP SCH ×2 (08:39→21:23)
[2017-02-24] MEDS: PROSOURCE / PROSTAT (PYXIS) 30 ML UDC GT SCH ×2 (08:39→16:22)
[2017-02-24] MEDS: Z GUARD REMEDY 2 OZ OINT TP PRN ×2 (08:50→16:50)
[2017-02-24] MEDS ORDERED: HYDROGEL DRESSING 90 GM TUBE TP PRN (09:00)
[2017-02-24] MEDS: HYDROGEL DRESSING 90 GM TUBE TP SCH (09:31)
--- NOTE | 2017-02-24 10:00 | NUR ---
DIMENSION SPECIFICATION INSPECTOR NOTES DR Lashae POSEY AT BEDSIDE.
[2017-02-24] MEDS ORDERED: ALBUMIN 25% 25 GM in PREMIX 1 EA IV ONE (11:00)
--- NOTE | 2017-02-24 11:00 | NUR ---
SOLID GLASS ROD DOWEL MACHINE OPERATOR NOTES PATIENT PLACED TRENDELENBERG TO ASSIST WITH BP DURING HD. TUBE FEEDING PAUSED.
[2017-02-24] MEDS: NEO/BACI/POLY B/HC OINT (15GM) 15 GM TUBE TP SCH ×2 (11:20→23:34)
[2017-02-24] MEDS: RENAL NOVASOURCE 1,000 ML BOTTLE GT PRN (14:25)
--- NOTE | 2017-02-24 15:22 | NUR ---
QUALITY CONTROL AUDITOR NOTES PATIENT STATES HE WILL NOT PULL AT COLOSTOMY OR VENT CONNECTION. RIGHT WRIST RESTRAINT RELEASED AT 1400 AND AT THIS TIME PATIENT COMPLIANT. WILL LEAVE OFF RESTRAINT AND CLOSELY MONITOR PATIENT. COLOSTOMY CHANGED AND SKIN CARE COMPLETED.
--- NOTE | 2017-02-24 18:35 | NUR ---
ASSISTED LIVING COORDINATOR CLOSING PATIENT STABLE, VS STABLE AT THIS TIME. VENT STABLE. NO S/S PAIN, SOB DIFFICULTY BREATHING. PATIENT RESTING WELL. ALL DUE MEDS GIVEN AND ALL NEEDS MET. G TUBE RESIDUAL NONE NOTED TOLERATING WELL. SKIN CARE COMPLETED AGAIN PRIOR TO CHANGE OF SHIFT. WILL ENDORSE CLAUDIA
--- NOTE | 2017-02-24 20:00 | NUR ---
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 Right colostomy with liquid stools.Anuric.SPC intact.HD patient with HD cath to right upper chest. Dressing C/D/I.Will turn and reposition Q 2hrs per protocol.Safety maintained will call light within easy reach with instructions.
[2017-02-25] VITALS: BP 95/60
[2017-02-25] MEDS ORDERED: HYDROCODONE/APAP 5/325MG 1 EACH TABLET ONE (02:35)
--- NOTE | 2017-02-25 02:40 | NUR ---
Patient complaints of back pain. notified with orders received and carried out.
[2017-02-25] MEDS ORDERED: HYDROCODONE/APAP 5/325MG 1 EACH TABLET PO PRN (03:00)
[2017-02-25 04:00] VITALS: BP 99/68
[2017-02-25] MEDS: BLOOD SUGAR DIAGNOSTIC 1 EACH STRIP IN SCH ×3 (05:47→17:09)
--- NOTE | 2017-02-25 06:15 | NUR ---
Patient resting appears comfortable.VS stable.SR/SB 45.Denies chest pain or sob.Verbalized pain medication for back pain effective.Tolerating vent settings.Oral care done.Secretions suctioned and trach dressing changed.Gt site ,SPC site and colostomy care all done.GT feeding well tolerated.Bathed and complete linens changed.Turned and repositioned.All needs met.
--- NOTE | 2017-02-25 07:29 | NUR ---
telephone sex worker note patient in bed l alert , oriented x3 , on tele monitor sr , with ileostomy on rt lower abdomen with liquid stool noted , with suprapubic cath with yellow cloudy urine , with gtube feeding as ordered ,keep hob elevated at all time with trach to vent setting as ordered ambu bag at hob at all time , rt fa gisselle 22 intact ,no s\s infection noted , bed in lowest and locked ,plan of care discussed with patient all needs attended ,will cont to monitor closely
[2017-02-25 08:00] VITALS: BP 90/58
[2017-02-25] MEDS: PANTOPRAZOLE 40 MG/PACK PACK GT SCH (08:20)
[2017-02-25] MEDS: SEVELAMER CARBONATE 0.8 GM POWD.PACK GT SCH ×3 (08:20→17:09)
[2017-02-25] MEDS: ESCITALOPRAM OXALATE (10 MG) 10 MG TABLET GT SCH (08:20)
[2017-02-25] MEDS: LEVETIRACETAM (250 MG) 250 MG TABLET PO SCH (08:20)
[2017-02-25] MEDS: METOCLOPRAMIDE HCL 10 MG TABLET GT SCH (08:20)
[2017-02-25] MEDS: VIT B CMPLX 3/FA/VIT C/BIOTIN 1 TAB TABLET PO SCH (08:20)
[2017-02-25] MEDS: GABAPENTIN 300 MG CAPSULE GT SCH ×3 (08:20→16:23)
[2017-02-25] MEDS: PROSOURCE / PROSTAT (PYXIS) 30 ML UDC GT SCH ×2 (08:20→16:24)
[2017-02-25] MEDS: MIDODRINE HCL (5MG) 5 MG TABLET GT SCH ×3 (08:21→16:24)
[2017-02-25] MEDS: HYDROGEL DRESSING 90 GM TUBE TP SCH (08:22)
[2017-02-25] MEDS: NYSTATIN TOP POWDER 15 GM BOTTLE TP SCH (08:22)
[2017-02-25] MEDS ORDERED: PANT40SU2 GT (09:12)
[2017-02-25] MEDS ORDERED: Hydrogel Dressing TP (09:12)
--- NOTE | 2017-02-25 09:30 | NUR ---
ELECTROMEDICAL EQUIPMENT TECHNICIAN NOTE SPOKE WITH DR CELESTINE DAVIS ,NOTIFIED THAT BP 90/58 ,STATED STILL OK TO DISCHARGE TO SNF
[2017-02-25] MEDS: NEO/BACI/POLY B/HC OINT (15GM) 15 GM TUBE TP SCH (11:35)
[2017-02-25 12:00] VITALS: BP_SYST 118; BP_SYST 90; BP_DIAS 58; BP_DIAS 71
--- NOTE | 2017-02-25 12:30 | NUR ---
TELE RHN NOTE SPOKE WITH MP MICHELLE ICT BUSINESS DEVELOPMENT MANAGER FOR DR TYRESE CLINE, NOTIFIED THAT RESIDUAL 50 ML ,STATED ITS OK CONT REGLAN AND GTUBE FEEDING, WILL CONT TO MONITOR CLOSELY
--- NOTE | 2017-02-25 13:27 | NUR ---
METAL LOADER NOTE CALLED [employer] AIR[employer]FT TECHNICIAN ,SPOKE ABOUT DISCHARGE STATED THAT WORKING ON IT ,NOT READY TO DISCHARGE TO SNF ,WILL F\U
--- NOTE | 2017-02-25 14:09 | NUR ---
MANAGER FOOD SAFETY NOTE CALLED TO SNF ,REPORT GIVEN TO MONIK MICHELLE
[2017-02-25 16:00] VITALS: BP 113/72
[2017-02-25 16:24] VITALS: BP 113/72
--- NOTE | 2017-02-25 18:11 | NUR ---
TELEVISION PRODUCER NOTE AMBULANCE ARRIVED, REPORT GIVEN TELE REMOVED, HL ON RT FA REMOVED NO S\S INFECTION NOTED NO BLEEDING NOTED , WENT TO SNF WITH STABLE CONDITION ,
== END 2017-02-25 18:24 | DRG 241 ==
LOC: ER 10:43 → TELE-TD 14:24 → TELE1 15:16
PROVIDERS: ADMIT Internal Medicine; ATTEND Internal Medicine
DX: K29.71 Gastritis, unspecified, with bleeding (principal); Z99.11 Dependence on respirator [ventilator] status; G93.40 Encephalopathy, unspecified; J96.11 Chronic respiratory failure with hypoxia; Z93.0 Tracheostomy status; J44.9 Chronic obstructive pulmonary disease, unspecified; G82.20 Paraplegia, unspecified; N18.6 End stage renal disease; Z99.2 Dependence on renal dialysis; K22.70 Barrett's esophagus without dysplasia; K44.9 Diaphragmatic hernia without obstruction or gangrene; Z87.891 Personal history of nicotine dependence; E11.22 Type 2 diabetes mellitus with diabetic chronic kidney disease; R74.0 Nonspecific elevation of levels of transaminase and lactic acid dehydrogenase [LDH]; R00.1 Bradycardia, unspecified; E83.9 Disorder of mineral metabolism, unspecified; N31.9 Neuromuscular dysfunction of bladder, unspecified; Z93.6 Other artificial openings of urinary tract status; R13.10 Dysphagia, unspecified; I12.0 Hypertensive chronic kidney disease with stage 5 chronic kidney disease or end stage renal disease; D64.9 Anemia, unspecified; Q05.9 Spina bifida, unspecified; L53.8 Other specified erythematous conditions; L98.8 Other specified disorders of the skin and subcutaneous tissue; L89.892 Pressure ulcer of other site, stage 2; Z43.1 Encounter for attention to gastrostomy; M62.50 Muscle wasting and atrophy, not elsewhere classified, unspecified site; L89.620 Pressure ulcer of left heel, unstageable; L89.610 Pressure ulcer of right heel, unstageable; K20.9 Esophagitis, unspecified
CPT/HCPCS: 31720; 36415; 36600; 43760; 71010-TC; 80048-TC; 80053-TC; 80076-TC; 82272-TC; 82803-TC; 82962-TC; 83690-TC; 83735-TC; 84100-TC; 84484-TC; 85025-TC; 85730-TC; 86850-TC; 87040-TC; 87081-TC; 88305-TC; 88313-TC; 88342; 90935-TC; 94002-TC; 94003-TC; 99082-TC; A4216; A4606; A6248; A6402; A6403; C9113; J1815; J1953; J2405; J2704; J3490; J7030; J7040; J7042; J7050; J8597; P9047; Z7610

== ENCOUNTER 2017-03-04 20:57 | Inpatient (IN) | payer OTHER, MEDICARE ==
[~2017-03-04] VITALS: Ht 162.6 cm; Wt 58.1 kg
[~2017-03-04 20:57] MED LIST changes: +ALLA266C2 TP; +AMIN30LI4 GT; +BLOO-668 IN; +CHLO15MO2 MM; +EPOE1VIA4 SQ; +Hydrogel Dressing TP; +IPRA3AMP IH; -METO50TA3 PO; +MIDO10TA GT; -OMEP20CA10 GT; +ONDA4TAB5 GT; +PANT40SU2 GT; -POLY15DR57 EACHEYE; -ZINC220T GT; +ZOLP5TAB2 GT
[2017-03-04 21:00] VITALS: BP 84/35
[2017-03-04 21:14] LABS: MONOCYTES # (AUTO) 1.3 /CMM (0.1-1.30)
--- NOTE | 2017-03-04 21:17 | NUR ---
MIRIAN WHALEN [facility] FOR N/V COFFE GROUND EMESIS TODAY. PT AOX3 RR EVEN AND UNLABORED. NO SOB NOTED. NAD NOTED. NO NVD AT THIS TIME. PT GOWNED AND PLACED ON MONITOR WAITING FOR MD PINEDA. PT CONNECTED TO VENT WITH PRESCRIBED SETTINGS: AC 16 VT 500 FI02 40% PEEP 0. PT NOT DIAPHORETIC. DR. JUNIOR AT BEDSIDE FOR EVAL.
[2017-03-04] MEDS ORDERED: ONDANSETRON HCL/PF 4 MG/2 ML VIAL ONE (21:18)
[2017-03-04] MEDS ORDERED: FAMOTIDINE/PF INJ 20 MG/2 ML VIAL IV ONE ×2 (21:19→21:30)
[2017-03-04] MEDS ORDERED: ONDANSETRON HCL/PF 4 MG/2 ML VIAL IVP ONE (21:30)
[2017-03-04] MEDS ORDERED: IV NS 0.9% 250 ML BAG IV ONE (21:30)
[2017-03-04] MEDS ORDERED: IV NS 0.9% 500 ML BAG IV ONE (21:30)
[2017-03-04 21:35] LABS: INR 0.94 (0.87-1.13); PROTHROMBIN TIME 9.8 SECS (9.5-12.7)
[2017-03-04 21:36] LABS: ALBUMIN 3.7 g/dL (3.4-5.0); BILIRUBIN,DIRECT 0.1 mg/dL (0.0-0.2); BILIRUBIN,TOTAL 0.4 mg/dL (0.2-1.0); CALCIUM, SERUM 12.5 mg/dL (8.5-10.1); POTASSIUM 4.8 mmol/L (3.5-5.1); TOTAL PROTEIN, SERUM 10.3 g/dL (6.4-8.2)
[2017-03-04 21:38] LABS: BASOPHILS # (AUTO) 0.2 /CMM (0.0-0.2); BASOPHILS % (AUTO) 1.4 % (0.0-2.0); CREATININE 9.3 mg/dL (0.6-1.3); EOSINOPHILS # (AUTO) 0.3 /CMM (0.0-0.7); EOSINOPHILS % (AUTO) 1.8 % (0.0-6.0); HEMATOCRIT 44 % (39-51); LYMPHOCYTES # (AUTO) 0.9 /CMM (0.8-4.8); LYMPHOCYTES % (AUTO) 5.8 % (20.0-44.0); MEAN CORPUSCULAR HEMOGLOBIN 31 PG (26.0-33.0); MEAN CORPUSCULAR HGB CONC 32 g/dl (31.0-36.0); MEAN CORPUSCULAR VOLUME 97 fL (80-96); MONOCYTES % (AUTO) 8.8 % (2.0-12.0); NEUTROPHILS # (AUTO) 12.3 /CMM (1.8-8.9); NEUTROPHILS % (AUTO) 82.2 % (43.0-81.0); PLATELET COUNT (AUTO) 432 /CMM (150-450); RDW COEFFICIENT OF VARIATION 17.5 (11.5-15.0); RED BLOOD CELL COUNT(AUTO) 4.58 MIL/uL (4.5-6.0)
--- NOTE | 2017-03-04 21:43 | NUR ---
PULLED OUT IVPB 500MLS. GAVE 250MLS IV NS BOLUS ORDERED PER FULLER BRUSH WORKER DEVAUGHN
[2017-03-04] MEDS ORDERED: METOCLOPRAMIDE HCL 10 MG/2 ML VIAL ONE (21:49)
[2017-03-04] MEDS ORDERED: METOCLOPRAMIDE HCL 10 MG/2 ML VIAL IV ONE (22:00)
--- NOTE | 2017-03-04 22:03 | NUR ---
CALLED [facility], MILL MANAGER WAS PAGED.
--- NOTE | 2017-03-04 22:09 | NUR ---
SYL MONTENEGRO SPOKE TO DR. JAMIE POSEY REGARDING ADMISSION
--- NOTE | 2017-03-04 22:18 | NUR ---
URINE COLLECTED. CALL LAB FOR PROFESSIONAL MODEL/
[2017-03-04] MEDS ORDERED: PANTOPRAZOLE 40 MG VIAL ONE (22:23)
[2017-03-04] MEDS ORDERED: WATER FOR INJECTION,STERILE 10 ML ONE (22:23)
[2017-03-04] MEDS ORDERED: PANTOPRAZOLE 40 MG VIAL IV ONE (22:30)
--- NOTE | 2017-03-04 22:31 | NUR ---
RADIOLOGY AT BEDSIDE FOR CXR
--- NOTE | 2017-03-04 22:32 | NUR ---
PER LAB, URINE SPECIMEN IS NOT ENOUGH. SYL MONTENEGRO MADE AWARE.
[2017-03-04 22:47] LABS: EOSINOPHILS % (MANUAL) 2 % (0-4); LYMPHOCYTES % (MANUAL) 10 % (16-48); MONOCYTES % (MANUAL) 8 % (0-11.0); NEUTROPHILS % (MANUAL) 80 (42-76)
--- NOTE | 2017-03-04 22:55 | NUR ---
Conrad de la rosa in [facility] - 03/04/17 at 2259 by YVETTE REPORT GIVEN TO KAROLINE SMITH [facility]
--- NOTE | 2017-03-04 22:59 | NUR ---
REPORT GIVEN TO KAROLINE FOR [facility] BED 111
[2017-03-04 23:00] VITALS: BP 97/66
--- NOTE | 2017-03-04 23:00 | NUR ---
RN FINA INITIAL NOTE RECEIVED 56 YR OLD MALE, ON VENT S#6, TV 500, FIO2 40 AND AC 16, NO PEEP, WELL TOLERATED NO EPISODE OF DISTRESS, DENIES ANY PAIN, WITH AC 20 G, PEG AND SUPRAPUBIC. HEAD TO TOE ASSESSMENT COMPLETED PER PROTOCOL, SKIN ISSUES NOTED WELL PHOTOS TAKEN AND PLACED IN PT CHAT, SUPRAPUBIC PATENT WITH THICK MUCOID, FOUL SMELLING O/P, FLUSHED AND CHANGED BAG, UA ORDERED, PT AFEBRILE, BP BOARDERLINE 97/66, 75, 98.[address] 100%. DR AYALA CONTACTED FOR VERIFICATION OF ORDERS. CONT ON D5NS @50ML/HR, WELL TOLERATED, NO SIGN OF FLUID EXCESS, IV SITE INTACT, NO SIGN OF INFILTRATION. WILL CONT TO MONITOR, NPO @ THIS TIME TILL VERIFY WITH GTF ORDER, WITH HD SCHEDULED FOR AM, WILL ENDORSE TO AM SHIFT NURSE TO F/U .
--- NOTE | 2017-03-04 23:00 | NUR ---
PT TRANSFERRED PER ACLS PROTOCOL.
[2017-03-04] MEDS ORDERED: DEXTROSE 50%-WATER 50 ML DISP.SYRIN IV PRN (23:30)
[2017-03-04] MEDS ORDERED: IV D5/ 0.9% NACL 1,000 ML IV PRN (23:30)
[2017-03-05] VITALS: BP_SYST 90; BP_SYST 97; BP_DIAS 55; BP_DIAS 60
[2017-03-05] MEDS: BLOOD SUGAR DIAGNOSTIC 1 EACH STRIP IN SCH ×5 (00:28→23:49)
--- NOTE | 2017-03-05 00:28 | NUR ---
SPOKE TO MD JAMIE POSEY, VERIFIED IVF ORDER, IVF D5NS 150 ML/HR CHANGED TO D5NS 50ML/HR.
[2017-03-05 04:00] VITALS: BP_SYST 89; BP_SYST 90; BP_DIAS 58
--- NOTE | 2017-03-05 06:09 | NUR ---
RN [facility]INA CLOSING NOTE ENDORSED 56 YR OLD MALE, ON VENT S#6, TV 500, FIO2 40 AND AC 16, NO PEEP, WELL TOLERATED NO EPISODE OF DISTRESS, DENIES ANY PAIN, WITH AC 20 G, PEG AND SUPRAPUBIC. HEAD TO TOE ASSESSMENT COMPLETED PER PROTOCOL, SKIN ISSUES NOTED WELL PHOTOS TAKEN AND PLACED IN PT CHAT, SUPRAPUBIC PATENT WITH THICK CLOUDY, FOUL SMELLING O/P, FLUSHED AND CHANGED BAG, UA ORDERED, UNABLE TO OBTAINE @ THIS, PT AFEBRILE, BP BOARDERLINE 97/66, 75, 98.5 O2 SAT 100%. CONT ON D5NS @50ML/HR, WELL TOLERATED, NO SIGN OF FLUID EXCESS, IV SITE INTACT, NO SIGN OF INFILTRATION. WILL CONT TO MONITOR, NPO @ THIS TIME TILL VERIFY WITH GTF ORDER, WITH HD SCHEDULED FOR AM, WILL ENDORSE TO AM SHIFT NURSE TO F/U .
[2017-03-05 07:41] LABS: BASOPHILS % (AUTO) 0.4 % (0.0-2.0); EOSINOPHILS # (AUTO) 0.3 /CMM (0.0-0.7); EOSINOPHILS % (AUTO) 2.7 % (0.0-6.0); HEMATOCRIT 42 % (39-51); HEMOGLOBIN 13.3 g/dL (13.5-17.5); LYMPHOCYTES # (AUTO) 1.1 /CMM (0.8-4.8); LYMPHOCYTES % (AUTO) 9.5 % (20.0-44.0); MEAN CORPUSCULAR HEMOGLOBIN 31 PG (26.0-33.0); MEAN CORPUSCULAR HGB CONC 32 g/dl (31.0-36.0); MEAN CORPUSCULAR VOLUME 97 fL (80-96); MONOCYTES # (AUTO) 1.3 /CMM (0.1-1.30); MONOCYTES % (AUTO) 11.3 % (2.0-12.0); NEUTROPHILS # (AUTO) 8.9 /CMM (1.8-8.9); NEUTROPHILS % (AUTO) 76.1 % (43.0-81.0); PLATELET COUNT (AUTO) 368 /CMM (150-450); RDW COEFFICIENT OF VARIATION 17.9 (11.5-15.0); RED BLOOD CELL COUNT(AUTO) 4.35 MIL/uL (4.5-6.0); WHITE BLOOD COUNT (AUTO) 11.8 K/uL (4.3-11.0)
--- NOTE | 2017-03-05 07:50 | NUR ---
RN NOTES RECEIVED PATIENT IN BED ASLEEP WITH BREATHING NORMAL, EVEN AND UNLABORED. NO SOB NOTED. NO ACUTE DISTRESS NOTED. VENT SETTING REVIEWED AND VERIFIED. TOLERATED WELL. AFEBRILE. TELE MONITOR REVEALS SR, HR=67. IV RAC IS PATENT AND INTACT, RUNNING IVF PER ORDER. SUPRAPUBIC CATH IS PATENT AND INTACT, GT CLAMPED. HOB ELEVATED. KEPT CLEAN, DRY AND COMFORTABLE. ALL NEEDS ATTENDED. SAFETY MEASURE OBSERVED. CALL LIGHT WITH IN REACH. WILL CONT TO MONITOR.
[2017-03-05 08:00] VITALS: BP_SYST 89; BP_SYST 90; BP_DIAS 50
[2017-03-05 08:29] LABS: CALCIUM, SERUM 12.6 mg/dL (8.5-10.1); MAGNESIUM 3.4 mg/dL (1.8-2.4); PHOSPHORUS 5.9 mg/dL (2.5-4.9); POTASSIUM 4.4 mmol/L (3.5-5.1)
[2017-03-05 08:38] LABS: CREATININE 9.3 mg/dL (0.6-1.3)
[2017-03-05] MEDS: AMLODIPINE BESYLATE 5 MG TABLET GT SCH (09:17)
[2017-03-05] MEDS: ESCITALOPRAM OXALATE (10 MG) 10 MG TABLET GT SCH ×2 (09:18→10:32)
[2017-03-05] MEDS: LEVETIRACETAM SOL (5 ML) 100 MG/ML UDC GT SCH ×3 (09:21→17:21)
[2017-03-05] MEDS: METOCLOPRAMIDE HCL 10 MG TABLET GT SCH ×3 (09:22→21:49)
[2017-03-05] MEDS: PANTOPRAZOLE 40 MG/PACK PACK GT SCH ×3 (09:27→21:48)
[2017-03-05] MEDS ORDERED: ONDANSETRON 4 MG TAB.RAPDIS GT PRN (09:30)
[2017-03-05] MEDS ORDERED: Medication Not On Formulary EA (Ipratropium/Albuterol Sulfate (Duoneb 2.5-0.5 Mg/3 Ml So IH PRN (09:30)
[2017-03-05] MEDS ORDERED: RENAL NOVASOURCE 1,000 ML BOTTLE GT PRN (09:30)
[2017-03-05] MEDS ORDERED: Z GUARD REMEDY 2 OZ OINT TP PRN (09:30)
[2017-03-05] MEDS: CHLORHEXIDINE GLUCONATE 15 ML UDC MM SCH ×2 (10:32→21:48)
[2017-03-05] MEDS ORDERED: ALBUTEROL FS 2.5 MG/3 ML VIAL.NEB NEB PRN (11:30)
[2017-03-05] MEDS ORDERED: IPRATROPIUM NEB FS 0.5 MG/2.5 ML AMPUL.NEB NEB PRN (11:30)
[2017-03-05 12:00] VITALS: BP 81/39
[2017-03-05] MEDS: HYDROGEL DRESSING 90 GM TUBE TP SCH (12:18)
[2017-03-05] MEDS: SEVELAMER CARBONATE 0.8 GM POWD.PACK GT SCH ×2 (12:19→17:22)
[2017-03-05] MEDS: GABAPENTIN 300 MG CAPSULE GT SCH ×2 (12:19→17:21)
[2017-03-05] MEDS: MIDODRINE HCL (5MG) 5 MG TABLET GT SCH ×2 (12:20→17:22)
[2017-03-05] MEDS: RENAL NOVASOURCE 1,000 ML BOTTLE GT PRN (13:42)
[2017-03-05 16:00] VITALS: BP_SYST 81; BP_SYST 90; BP_DIAS 39; BP_DIAS 49
[2017-03-05] MEDS: PROSOURCE / PROSTAT (PYXIS) 30 ML UDC GT SCH (17:23)
--- NOTE | 2017-03-05 19:59 | NUR ---
RN FINA INITIAL NOTES RECEIVED PATIENT IN BED ASLEEP WITH BREATHING NORMAL, EVEN AND UNLABORED. NO SOB NOTED. NO ACUTE DISTRESS NOTED. VENT SETTING REVIEWED AND VERIFIED. TOLERATED WELL. AFEBRILE. TELE MONITOR REVEALS SR, HR=61. IV RAC IS PATENT AND INTACT, IVF DC PER ORDER' GTF RESUMED ON NOVASOURCE RENAL @ 50ML/HR, NO RESIDUAL, HOB ELEVATED. SUPRAPUBIC CATH IS PATENT AND INTACT. KEPT CLEAN, DRY AND COMFORTABLE. ALL NEEDS ATTENDED. SAFETY MEASURE OBSERVED. CALL LIGHT WITH IN REACH. WILL CONT TO MONITOR.
[2017-03-05 20:00] VITALS: BP 90/56
[2017-03-05] MEDS: ZOLPIDEM TARTRATE 5 MG TABLET GT PRN (21:48)
[2017-03-05] MEDS: LORAZEPAM 1 MG TABLET GT PRN (21:49)
[2017-03-06] VITALS (8 sets, daily range): BP systolic 87–116; BP diastolic 55–81
[2017-03-06] MEDS: BLOOD SUGAR DIAGNOSTIC 1 EACH STRIP IN SCH ×4 (06:02→23:45)
--- NOTE | 2017-03-06 06:22 | NUR ---
RN FINA CLOSING NOTES ENDORSED PATIENT IN BED ASLEEP WITH BREATHING NORMAL, EVEN AND UNLABORED. NO SOB NOTED. NO ACUTE DISTRESS NOTED. VENT SETTING REVIEWED AND VERIFIED. TOLERATED WELL. AFEBRILE. TELE MONITOR REVEALS SR, HR=61. IV RAC IS PATENT AND INTACT, IVF DC PER ORDER' GTF RESUMED ON NOVASOURCE RENAL @ 50ML/HR, NO RESIDUAL, HOB ELEVATED. SUPRAPUBIC CATH IS PATENT AND INTACT, HD IN AM. KEPT CLEAN, DRY AND COMFORTABLE. ALL NEEDS ATTENDED. SAFETY MEASURE OBSERVED. CALL LIGHT WITH IN REACH. WILL CONT TO MONITOR.
--- NOTE | 2017-03-06 08:00 | NUR ---
RN FINA: pt.is A/Ox1, able follow commands, but needy, confused occas., c/o general pain 3/10, SR, SBP over 90, O2 sat. WNL, GTF residual WNL, keep HOB over 35, new colostomy bag/no leak, pt.c/o: AM care was not done by CONSULTING SERVICES MANAGER, pt.is duty/notified charge nurse, no acute bleeding per report, no melena
[2017-03-06] MEDS: AMLODIPINE BESYLATE 5 MG TABLET GT SCH (09:00)
[2017-03-06] MEDS: ESCITALOPRAM OXALATE (10 MG) 10 MG TABLET GT SCH (09:02)
[2017-03-06] MEDS: METOCLOPRAMIDE HCL 10 MG TABLET GT SCH ×2 (09:02→21:33)
[2017-03-06] MEDS: PANTOPRAZOLE 40 MG/PACK PACK GT SCH ×2 (09:02→21:33)
[2017-03-06] MEDS: VIT B CMPLX 3/FA/VIT C/BIOTIN 1 TAB TABLET GT SCH (09:02)
[2017-03-06] MEDS: MIDODRINE HCL (5MG) 5 MG TABLET GT SCH ×3 (09:02→16:51)
[2017-03-06] MEDS: GABAPENTIN 300 MG CAPSULE GT SCH ×3 (09:02→16:39)
[2017-03-06] MEDS: CHLORHEXIDINE GLUCONATE 15 ML UDC MM SCH ×2 (09:03→21:33)
[2017-03-06] MEDS: LEVETIRACETAM SOL (5 ML) 100 MG/ML UDC GT SCH ×2 (09:03→16:38)
[2017-03-06] MEDS: SEVELAMER CARBONATE 0.8 GM POWD.PACK GT SCH ×3 (09:03→16:38)
[2017-03-06] MEDS: ACETAMINOPHEN 650 MG/20.3 ML UDC GT PRN (09:03)
[2017-03-06] MEDS: HYDROGEL DRESSING 90 GM TUBE TP SCH (09:04)
[2017-03-06] MEDS: PROSOURCE / PROSTAT (PYXIS) 30 ML UDC GT SCH ×2 (09:05→16:39)
--- NOTE | 2017-03-06 10:00 | NUR ---
RN FINA: HD done, 0ml out
--- NOTE | 2017-03-06 12:15 | NUR ---
RN FINA: GTF residual 120ml, hold for 2 hrs
--- NOTE | 2017-03-06 14:00 | NUR ---
RN FINA: GT residual 100ml, continue hold GTF
--- NOTE | 2017-03-06 16:00 | NUR ---
RN FINA: GT residual 40ml, resumed GTF
[2017-03-06] MEDS: INSULIN REGULAR, HUMAN 100 UNIT/ML 3 ML VIAL SQ PRN (17:46)
--- NOTE | 2017-03-06 18:00 | NUR ---
RN FINA: BS 132, 2 units R.Insilin SQ were given
--- NOTE | 2017-03-06 18:11 | NUR ---
RN FINA: pt.is A/Ox1, no pain, VSS, O2sat. WNL, GTF residual WNL, changed colostomy bag, base, no leak, pt.is oriented for POC
--- NOTE | 2017-03-06 20:30 | NUR ---
RN FINA INITIAL NOTES RECEIVED PATIENT IN BED ASLEEP WITH BREATHING NORMAL, EVEN AND UNLABORED. NO SOB NOTED. NO ACUTE DISTRESS NOTED. VENT SETTING REVIEWED AND VERIFIED. TOLERATED WELL. AFEBRILE. TELE MONITOR REVEALS SR, HR=61. IV RAC IS PATENT AND INTACT, IVF DC PER ORDER' GTF RESUMED ON NOVASOURCE RENAL @ 50ML/HR, 100ML , HELD WILL CONT TO MONITOR RESIDUAL, HOB ELEVATED. SUPRAPUBIC CATH IS PATENT AND INTACT. KEPT CLEAN, DRY AND COMFORTABLE. ALL NEEDS ATTENDED. SAFETY MEASURE OBSERVED. CALL LIGHT WITH IN REACH. WILL CONT TO MONITOR.
[2017-03-06] MEDS: ZOLPIDEM TARTRATE 5 MG TABLET GT PRN (21:33)
[2017-03-06] MEDS: LORAZEPAM 1 MG TABLET GT PRN (21:33)
[2017-03-06] MEDS: ONDANSETRON HCL/PF 4 MG/2 ML VIAL IV PRN (21:36)
[2017-03-07] VITALS (8 sets, daily range): BP systolic 73–114; BP diastolic 42–73
[2017-03-07] MEDS: BLOOD SUGAR DIAGNOSTIC 1 EACH STRIP IN SCH ×4 (05:53→18:00)
--- NOTE | 2017-03-07 06:40 | NUR ---
RN FINA CLOSING NOTES ENDORSED PATIENT IN BED ASLEEP WITH BREATHING NORMAL, EVEN AND UNLABORED. NO SOB NOTED. NO ACUTE DISTRESS NOTED. VENT SETTING REVIEWED AND VERIFIED. TOLERATED WELL. AFEBRILE. TELE MONITOR REVEALS SR, HR=61. IV RAC IS PATENT AND INTACT, IVF DC PER ORDER' GTF RESUMED ON NOVASOURCE RENAL @ 50ML/HR, 100ML , HELD WILL CONT TO MONITOR RESIDUAL, WITH EPISODE OF N/V, PRN ZOFRAN IV GIVEN EFFECTIVE. HOB ELEVATED. SUPRAPUBIC CATH IS PATENT AND INTACT. KEPT CLEAN, DRY AND COMFORTABLE. ALL NEEDS ATTENDED. SAFETY MEASURE OBSERVED. CALL LIGHT WITH IN REACH. WILL CONT TO MONITOR.
[2017-03-07] MEDS: LEVETIRACETAM SOL (5 ML) 100 MG/ML UDC GT SCH ×2 (08:47→17:59)
[2017-03-07] MEDS: SEVELAMER CARBONATE 0.8 GM POWD.PACK GT SCH ×3 (08:49→18:00)
[2017-03-07] MEDS: METOCLOPRAMIDE HCL 10 MG TABLET GT SCH ×2 (08:49→21:15)
[2017-03-07] MEDS: VIT B CMPLX 3/FA/VIT C/BIOTIN 1 TAB TABLET GT SCH (08:49)
[2017-03-07] MEDS: PROSOURCE / PROSTAT (PYXIS) 30 ML UDC GT SCH ×2 (08:49→17:59)
[2017-03-07] MEDS: GABAPENTIN 300 MG CAPSULE GT SCH ×3 (08:49→18:00)
[2017-03-07] MEDS: ESCITALOPRAM OXALATE (10 MG) 10 MG TABLET GT SCH (08:49)
[2017-03-07] MEDS: AMLODIPINE BESYLATE 5 MG TABLET GT SCH (08:49)
[2017-03-07] MEDS: CHLORHEXIDINE GLUCONATE 15 ML UDC MM SCH ×2 (08:49→21:15)
[2017-03-07] MEDS: PANTOPRAZOLE 40 MG/PACK PACK GT SCH ×2 (08:49→21:15)
[2017-03-07] MEDS: HYDROGEL DRESSING 90 GM TUBE TP SCH (08:53)
[2017-03-07] MEDS: MIDODRINE HCL (5MG) 5 MG TABLET GT SCH ×3 (08:53→18:00)
[2017-03-07 10:12] LABS: ALBUMIN 3.4 g/dL (3.4-5.0); BILIRUBIN,TOTAL 0.5 mg/dL (0.2-1.0); CALCIUM, SERUM 11.6 mg/dL (8.5-10.1); CREATININE 6.7 mg/dL (0.6-1.3); MAGNESIUM 2.7 mg/dL (1.8-2.4); PHOSPHORUS 5.1 mg/dL (2.5-4.9); POTASSIUM 3.4 mmol/L (3.5-5.1); TOTAL PROTEIN, SERUM 9.5 g/dL (6.4-8.2)
[2017-03-07 11:22] LABS: BASOPHILS # (AUTO) 0.1 /CMM (0.0-0.2); BASOPHILS % (AUTO) 0.7 % (0.0-2.0); EOSINOPHILS # (AUTO) 0.7 /CMM (0.0-0.7); EOSINOPHILS % (AUTO) 4.9 % (0.0-6.0); HEMATOCRIT 41 % (39-51); LYMPHOCYTES # (AUTO) 0.7 /CMM (0.8-4.8); LYMPHOCYTES % (AUTO) 4.8 % (20.0-44.0); MEAN CORPUSCULAR HEMOGLOBIN 30 PG (26.0-33.0); MEAN CORPUSCULAR HGB CONC 30 g/dl (31.0-36.0); MEAN CORPUSCULAR VOLUME 98 fL (80-96); MONOCYTES # (AUTO) 1.6 /CMM (0.1-1.30); MONOCYTES % (AUTO) 11.2 % (2.0-12.0); NEUTROPHILS # (AUTO) 11.5 /CMM (1.8-8.9); NEUTROPHILS % (AUTO) 78.4 % (43.0-81.0); PLATELET COUNT (AUTO) 345 /CMM (150-450); RDW COEFFICIENT OF VARIATION 18.1 (11.5-15.0); RED BLOOD CELL COUNT(AUTO) 4.17 MIL/uL (4.5-6.0); WHITE BLOOD COUNT (AUTO) 14.6 K/uL (4.3-11.0)
[2017-03-07 11:25] LABS: HEMOGLOBIN 12.4 g/dL (13.5-17.5)
--- NOTE | 2017-03-07 18:47 | NUR ---
RN CLOSING NOTE PT REMAINED STABLE, AOX2, SLEEPING INTERMITTENTLY, SBP REMAINED LOW IN 80S, MD AWARE, COLOSTOMY BAG CHANGED, MEDS GIVEN ORDERED, TOLERATED TUBE FEEDING DURING AM AND DAY, BUT BY THE END OF SHIFT HAD RESIDUAL OF 160 ML. FEEDING HELD AT 1800. KEPT CLEAN AND DRY, TURNED AND REPOSITIONED, CALL LIGHT WITHIN REACH, SAFETY MEASURES IMPLEMENTED. WILL ENDORSE TO CONDENSER SETTER.
--- NOTE | 2017-03-07 19:30 | NUR ---
RN/FINA NOTES: RECEIVED PT. IN BED SLEEPING W/ RESPIRATIONS EVEN AND UNLABORED. NO S/S OF FACIAL GRIMACES OR MOANING NOTED. ON VENT SETTINGS TOLERATED WELL. GTF W/ RESIDUAL OF 30 ML NOTED. RESUMED GTF ORDERED.RCW HD CATH IN PLACE. RAC IV SL PATENT AND INTACT W/ NO S/S OF INFECTION/INFILATRATION NOTED. CALL LIGHT W/REACH. BED LOCKED AND LOW POSITION. SAFETY AND ASPIRATION PRECAUTION MAINTAINED. WILL CONTINUE TO MONITOR.
[2017-03-08] VITALS: BP 118/58
[2017-03-08 04:00] VITALS: BP 106/41
[2017-03-08] MEDS: BLOOD SUGAR DIAGNOSTIC 1 EACH STRIP IN SCH ×3 (05:46→18:13)
--- NOTE | 2017-03-08 07:17 | NUR ---
RN/FINA NOTES: NOT ANY ACUTE CHANGE NOTED THIS SHIFT. COLOSTOMY BAG CHANGED. BP REMAINED WNL. NOT IN ANY RESPIRATORY DISTRESS. CALL LIGHT W/REACH. REPORT GIVEN TO NEXT SHIFT FOR CLAUDIA.
[2017-03-08 08:00] VITALS: BP 86/59
[2017-03-08] MEDS: AMLODIPINE BESYLATE 5 MG TABLET GT SCH (09:00)
[2017-03-08] MEDS: ESCITALOPRAM OXALATE (10 MG) 10 MG TABLET GT SCH (09:09)
[2017-03-08] MEDS: VIT B CMPLX 3/FA/VIT C/BIOTIN 1 TAB TABLET GT SCH (09:09)
[2017-03-08] MEDS: SEVELAMER CARBONATE 0.8 GM POWD.PACK GT SCH ×3 (09:09→18:13)
[2017-03-08] MEDS: PROSOURCE / PROSTAT (PYXIS) 30 ML UDC GT SCH ×2 (09:09→18:14)
[2017-03-08] MEDS: GABAPENTIN 300 MG CAPSULE GT SCH ×3 (09:09→18:14)
[2017-03-08] MEDS: METOCLOPRAMIDE HCL 10 MG TABLET GT SCH ×2 (09:09→21:42)
[2017-03-08] MEDS: CHLORHEXIDINE GLUCONATE 15 ML UDC MM SCH ×2 (09:09→21:41)
[2017-03-08] MEDS: PANTOPRAZOLE 40 MG/PACK PACK GT SCH ×2 (09:09→21:42)
[2017-03-08] MEDS: LEVETIRACETAM SOL (5 ML) 100 MG/ML UDC GT SCH ×2 (09:10→18:14)
[2017-03-08] MEDS: MIDODRINE HCL (5MG) 5 MG TABLET GT SCH ×3 (09:10→18:15)
[2017-03-08] MEDS: HYDROGEL DRESSING 90 GM TUBE TP SCH (09:11)
[2017-03-08 12:00] VITALS: BP 92/56
[2017-03-08] MEDS: ALBUMIN 25% 25 GM in PREMIX 1 EA IV PRN (12:11)
[2017-03-08 16:00] VITALS: BP_SYST 132; BP_DIAS 69; BP_DIAS 83
--- NOTE | 2017-03-08 19:00 | NUR ---
RN NOTE PT HAD HD TODAY, NOTHING OUT, ALBUMIN GIVEN, BP STABLE POST HD, PT REMAINED STABLE, ALL MEDS GIVEN. NEEDS MET, SAFETY MEASURES IMPLAMENTED, WILL ENDORSE TO SPECIAL TESTER NURSE
--- NOTE | 2017-03-08 19:30 | NUR ---
RN INITIAL NOTES: RECEIVED PATIENT IN BED, AWAKE, ALERT AND ORIENTED X2. RESPIRATIONS EVEN AND UNLABORED WHILE ON MECHANICAL VENT AT PRESCRIBED SETTINGS, TOLERATING WELL. NO S/S OF FACIAL GRIMACES OR MOANING NOTED. GTF W/ RESIDUAL OF 130 ML NOTED. RCW HD CATH IN PLACE. RAC IV SL PATENT AND INTACT WITHOUT ANY S/S OF INFILTRATION/PHLEBITIS NOTED. CALL LIGHT WITHIN EASY REACH. BED IN LOCKED AND LOWEST POSITION. SAFETY AND ASPIRATION PRECAUTION MAINTAINED. WILL CONTINUE TO MONITOR.
[2017-03-08 20:00] VITALS: BP 137/83
[2017-03-08] MEDS: ZOLPIDEM TARTRATE 5 MG TABLET GT PRN (22:37)
[2017-03-09] VITALS (7 sets, daily range): BP systolic 97–122; BP diastolic 63–75
[2017-03-09] MEDS: BLOOD SUGAR DIAGNOSTIC 1 EACH STRIP IN SCH ×4 (00:09→17:02)
[2017-03-09] MEDS: RENAL NOVASOURCE 1,000 ML BOTTLE GT PRN (05:26)
--- NOTE | 2017-03-09 06:27 | NUR ---
RN CLOSING NOTES PATIENT RESTING COMFORTABLY IN BED, NO ACUTE CHANGES THROUGHOUT SHIFT, PATIENT KEPT COMFORTABLE. WILL ENDORSE THE PATIENT TO THE AM SHIFT NURSE FOR CONTINUITY OF CARE
--- NOTE | 2017-03-09 08:15 | NUR ---
RN INITIAL NOTE PT A/O X2. PATIENT VOMITED X4. ZOFRAN WILL BE GIVEN. FEEDING STOPPED. PATIENT CLEANED AND DRIED.
[2017-03-09] MEDS: ONDANSETRON HCL/PF 4 MG/2 ML VIAL IV PRN (08:22)
[2017-03-09] MEDS: PANTOPRAZOLE 40 MG/PACK PACK GT SCH ×2 (08:31→20:40)
[2017-03-09] MEDS: GABAPENTIN 300 MG CAPSULE GT SCH ×3 (08:31→16:52)
[2017-03-09] MEDS: ESCITALOPRAM OXALATE (10 MG) 10 MG TABLET GT SCH (08:31)
[2017-03-09] MEDS: MIDODRINE HCL (5MG) 5 MG TABLET GT SCH ×3 (08:32→16:52)
[2017-03-09] MEDS: CHLORHEXIDINE GLUCONATE 15 ML UDC MM SCH ×2 (08:33→20:41)
[2017-03-09] MEDS: HYDROGEL DRESSING 90 GM TUBE TP SCH (08:33)
[2017-03-09] MEDS: METOCLOPRAMIDE HCL 10 MG TABLET GT SCH ×3 (08:33→20:40)
[2017-03-09] MEDS: SEVELAMER CARBONATE 0.8 GM POWD.PACK GT SCH ×3 (08:33→16:55)
[2017-03-09] MEDS: AMLODIPINE BESYLATE 5 MG TABLET GT SCH (08:33)
[2017-03-09] MEDS: PROSOURCE / PROSTAT (PYXIS) 30 ML UDC GT SCH ×2 (08:34→16:53)
[2017-03-09] MEDS: VIT B CMPLX 3/FA/VIT C/BIOTIN 1 TAB TABLET GT SCH (08:34)
[2017-03-09] MEDS: LEVETIRACETAM SOL (5 ML) 100 MG/ML UDC GT SCH ×2 (08:34→17:04)
[2017-03-09] MEDS: INSULIN REGULAR, HUMAN 100 UNIT/ML 3 ML VIAL SQ PRN (11:45)
--- NOTE | 2017-03-09 11:48 | NUR ---
RN NOTE PATIENT VOMITED X2. PT C/O OF NO PAIN ZOFRAN GIVEN @ 08:22 ORDER FOR Q6H PRN.
[2017-03-09] MEDS: ACETAMINOPHEN 650 MG/20.3 ML UDC GT PRN ×2 (12:33→20:41)
--- NOTE | 2017-03-09 20:30 | NUR ---
RN INITIAL NOTES: RECEIVED PATIENT IN BED, AWAKE, ALERT AND ORIENTED X2. RESPIRATIONS EVEN AND UNLABORED WHILE ON MECHANICAL VENT AT PRESCRIBED SETTINGS, TOLERATING WELL. GTF W/ RESIDUAL OF 40CC NOTED. RCW HD CATH IN PLACE. RAC IV SL PATENT AND INTACT WITHOUT ANY S/S OF INFILTRATION/PHLEBITIS NOTED. CALL LIGHT WITHIN EASY REACH. BED IN LOCKED AND LOWEST POSITION. SAFETY AND ASPIRATION PRECAUTION MAINTAINED. WILL CONTINUE TO MONITOR.
[2017-03-09] MEDS: ZOLPIDEM TARTRATE 5 MG TABLET GT PRN (21:36)
[2017-03-10] VITALS: BP 106/63
[2017-03-10] MEDS: BLOOD SUGAR DIAGNOSTIC 1 EACH STRIP IN SCH ×4 (00:03→17:19)
--- NOTE | 2017-03-10 00:03 | NUR ---
RN NOTES PT BS 129 AT 0003 COMPUTER DID NOT SAVE NIGHT COORDINATOR, MANUALLY INPUT.
[2017-03-10 04:00] VITALS: BP 95/62
[2017-03-10] MEDS: METOCLOPRAMIDE HCL 10 MG TABLET GT SCH ×3 (05:36→21:42)
[2017-03-10] MEDS: ONDANSETRON HCL/PF 4 MG/2 ML VIAL IV PRN (06:39)
[2017-03-10 07:07] LABS: BASOPHILS % (AUTO) 0.4 % (0.0-2.0); EOSINOPHILS % (AUTO) 8.5 % (0.0-6.0); HEMATOCRIT 40 % (39-51); HEMOGLOBIN 12.5 g/dL (13.5-17.5); LYMPHOCYTES # (AUTO) 0.9 /CMM (0.8-4.8); LYMPHOCYTES % (AUTO) 7.8 % (20.0-44.0); MEAN CORPUSCULAR HEMOGLOBIN 31 PG (26.0-33.0); MEAN CORPUSCULAR HGB CONC 32 g/dl (31.0-36.0); MEAN CORPUSCULAR VOLUME 98 fL (80-96); MONOCYTES # (AUTO) 1.5 /CMM (0.1-1.30); MONOCYTES % (AUTO) 12.4 % (2.0-12.0); NEUTROPHILS # (AUTO) 8.5 /CMM (1.8-8.9); NEUTROPHILS % (AUTO) 70.9 % (43.0-81.0); PLATELET COUNT (AUTO) 312 /CMM (150-450); RDW COEFFICIENT OF VARIATION 17.5 (11.5-15.0); RED BLOOD CELL COUNT(AUTO) 4.03 MIL/uL (4.5-6.0)
[2017-03-10 07:33] LABS: CALCIUM, SERUM 12.1 mg/dL (8.5-10.1); CREATININE 6.8 mg/dL (0.6-1.3); MAGNESIUM 3.2 mg/dL (1.8-2.4); POTASSIUM 3.9 mmol/L (3.5-5.1)
[2017-03-10 08:00] VITALS: BP 101/70
[2017-03-10] MEDS: SEVELAMER CARBONATE 0.8 GM POWD.PACK GT SCH ×3 (08:54→17:19)
[2017-03-10] MEDS: LEVETIRACETAM SOL (5 ML) 100 MG/ML UDC GT SCH ×2 (08:54→17:18)
[2017-03-10] MEDS: GABAPENTIN 300 MG CAPSULE GT SCH ×3 (08:55→17:26)
[2017-03-10] MEDS: PROSOURCE / PROSTAT (PYXIS) 30 ML UDC GT SCH ×2 (08:55→17:19)
[2017-03-10] MEDS: PANTOPRAZOLE 40 MG/PACK PACK GT SCH ×2 (08:55→21:42)
[2017-03-10] MEDS: MIDODRINE HCL (5MG) 5 MG TABLET GT SCH ×3 (08:55→17:18)
[2017-03-10] MEDS: VIT B CMPLX 3/FA/VIT C/BIOTIN 1 TAB TABLET GT SCH (08:55)
[2017-03-10] MEDS: ESCITALOPRAM OXALATE (10 MG) 10 MG TABLET GT SCH (08:56)
[2017-03-10] MEDS: HYDROGEL DRESSING 90 GM TUBE TP SCH (08:56)
[2017-03-10] MEDS: CHLORHEXIDINE GLUCONATE 15 ML UDC MM SCH ×2 (08:56→21:42)
[2017-03-10] MEDS: AMLODIPINE BESYLATE 5 MG TABLET GT SCH (09:00)
[2017-03-10] MEDS: ALBUMIN 25% 25 GM in PREMIX 1 EA IV PRN (09:57)
[2017-03-10] MEDS: ACETAMINOPHEN 650 MG/20.3 ML UDC GT PRN (10:23)
[2017-03-10 12:00] VITALS: BP 77/49
--- NOTE | 2017-03-10 12:00 | NUR ---
RN NOTE PER STANDING ORDER BOLUS 500 ML B/P 77/49. AMARIS Wen FROM GI ORDERED GTF TO BE HELD.
--- NOTE | 2017-03-10 12:38 | NUR ---
RN NOTE PT B/P 95/49 AFTER BOLUS.
--- NOTE | 2017-03-10 14:11 | NUR ---
PT IS VOMITING, NOT READY FOR CT SCAN. RN WILL CALL WHEN READY.
[2017-03-10 16:00] VITALS: BP 117/77
--- NOTE | 2017-03-10 16:30 | NUR ---
RN NOTE PT TRANSPORTED VIA GURNEY FOR CT. PT STABLE THROUGHOUT TRANSPORT. RT WELL I TRANSPORTED PT. PT ON CARDICA MONITOR THROUGHOUT TRANSPORTATION.
[2017-03-10 20:00] VITALS: BP 90/43
[2017-03-11] VITALS: BP 121/75
[2017-03-11] MEDS: BLOOD SUGAR DIAGNOSTIC 1 EACH STRIP IN SCH ×5 (00:18→23:44)
[2017-03-11] MEDS: INSULIN REGULAR, HUMAN 100 UNIT/ML 3 ML VIAL SQ PRN ×2 (00:19→05:32)
[2017-03-11] MEDS: ZOLPIDEM TARTRATE 5 MG TABLET GT PRN ×2 (00:40→22:18)
[2017-03-11] MEDS: LORAZEPAM 1 MG TABLET GT PRN ×2 (00:41→21:26)
[2017-03-11 04:00] VITALS: BP 114/67
[2017-03-11] MEDS: METOCLOPRAMIDE HCL 10 MG TABLET GT SCH ×3 (05:33→21:26)
[2017-03-11] MEDS: RENAL NOVASOURCE 1,000 ML BOTTLE GT PRN (06:41)
[2017-03-11 07:20] LABS: EOSINOPHILS # (AUTO) 0.7 /CMM (0.0-0.7); EOSINOPHILS % (AUTO) 5.9 % (0.0-6.0); HEMATOCRIT 38 % (39-51); LYMPHOCYTES # (AUTO) 0.3 /CMM (0.8-4.8); LYMPHOCYTES % (AUTO) 2.7 % (20.0-44.0); MEAN CORPUSCULAR HEMOGLOBIN 31 PG (26.0-33.0); MEAN CORPUSCULAR HGB CONC 31 g/dl (31.0-36.0); MEAN CORPUSCULAR VOLUME 99 fL (80-96); MONOCYTES # (AUTO) 1.4 /CMM (0.1-1.30); NEUTROPHILS # (AUTO) 10.1 /CMM (1.8-8.9); NEUTROPHILS % (AUTO) 80.4 % (43.0-81.0); PLATELET COUNT (AUTO) 331 /CMM (150-450); RDW COEFFICIENT OF VARIATION 17.6 (11.5-15.0); RED BLOOD CELL COUNT(AUTO) 3.86 MIL/uL (4.5-6.0); WHITE BLOOD COUNT (AUTO) 12.6 K/uL (4.3-11.0)
[2017-03-11 07:33] LABS: CREATININE 5.2 mg/dL (0.6-1.3); MAGNESIUM 2.9 mg/dL (1.8-2.4); PHOSPHORUS 4.8 mg/dL (2.5-4.9); POTASSIUM 4.5 mmol/L (3.5-5.1)
--- NOTE | 2017-03-11 07:35 | NUR ---
RN NOTES RECEIVED PT ASLEEP IN BED, EASILY AROUSABLE DURING CARE, EASILY AROUSABLE DURING CARE. ON MECHANICAL VENTILATOR, TOLERATED WELL. RESPIRATIONS EVEN AND UNLABORED, DENIES ANY PAIN OR DISCOMFORT AT THIS TIME. IV ACCESS PATENT AND INTACT NO REDNESS OR INFILTRATION NOTED, PATIENT WITH SUPRAPUBIC CATHETER IN PLACE PATENT AND INTACT, MD AWARE, CONTINUE TO MONITOR. SAFETY MEASURES IN PLACE, CONTINUE TO MONITOR AT THIS TIME
[2017-03-11 08:00] VITALS: BP 99/61
[2017-03-11] MEDS: AMLODIPINE BESYLATE 5 MG TABLET GT SCH (09:00)
[2017-03-11] MEDS: GABAPENTIN 300 MG CAPSULE GT SCH ×3 (09:13→17:26)
[2017-03-11] MEDS: LEVETIRACETAM SOL (5 ML) 100 MG/ML UDC GT SCH ×2 (09:13→16:46)
[2017-03-11] MEDS: CHLORHEXIDINE GLUCONATE 15 ML UDC MM SCH ×2 (09:13→21:26)
[2017-03-11] MEDS: SEVELAMER CARBONATE 0.8 GM POWD.PACK GT SCH ×3 (09:13→16:46)
[2017-03-11] MEDS: MIDODRINE HCL (5MG) 5 MG TABLET GT SCH ×3 (09:15→16:46)
[2017-03-11] MEDS: PANTOPRAZOLE 40 MG/PACK PACK GT SCH ×2 (09:16→21:26)
[2017-03-11] MEDS: PROSOURCE / PROSTAT (PYXIS) 30 ML UDC GT SCH ×2 (09:17→16:45)
[2017-03-11] MEDS: ESCITALOPRAM OXALATE (10 MG) 10 MG TABLET GT SCH (09:29)
[2017-03-11] MEDS: VIT B CMPLX 3/FA/VIT C/BIOTIN 1 TAB TABLET GT SCH (09:29)
[2017-03-11] MEDS: HYDROGEL DRESSING 90 GM TUBE TP SCH (09:29)
[2017-03-11 12:00] VITALS: BP 113/68
[2017-03-11 16:00] VITALS: BP 123/63
--- NOTE | 2017-03-11 16:04 | NUR ---
RN NOTES PT ASLEEP IN BED, EASILY AROUSABLE DURING CARE, EASILY AROUSABLE DURING CARE. ON MECHANICAL VENTILATOR, TOLERATED WELL. RESPIRATIONS EVEN AND UNLABORED, DENIES ANY PAIN OR DISCOMFORT AT THIS TIME. IV ACCESS PATENT AND INTACT NO REDNESS OR INFILTRATION NOTED, PATIENT WITH SUPRAPUBIC CATHETER IN PLACE PATENT AND INTACT, MD AWARE, CONTINUE TO MONITOR. SAFETY MEASURES IN PLACE, CONTINUE TO MONITOR AT THIS TIME, ENDORSED TO NEXT SHIFT FOR CONTINUITY OF CARE
[2017-03-11] MEDS: IV D5/ 0.9% NACL 1,000 ML IV PRN (17:47)
--- NOTE | 2017-03-11 18:49 | NUR ---
RN CLOSING NOTES PT AWAKE IN BED AND LYING @ MODERATE HIGH BACKREST. A/O X2 AND VERBALLY RESPONSIVE. ON MECHANICAL VENTILATOR, TOLERATED SETTINGS WELL THIS TOUR. ON TELE-MONITORING WITH CURRENT READINGS OF SB AND HR OF 55, NO C/O CHEST PAIN VOICED. IV ACCESS ON RIGHT AC, PATENT AND INTACT WITH D5 NS @ 50ML/HR IN PROGRESS, NO SIGNS OF INFILTRATION NOTED. PERMA CATH ON RCW INTACT, DRESSING IN PLACED WITH NO BLEEDING NOTED AT SITE. PATIENT WITH SUPRAPUBIC CATHETER IN PLACE, PATENT AND INTACT WITH 20 ML OF CLOUDY URINE OUTPUT NOTED THIS SHIFT. COLOSTOMY BAG IN PLACED WITH POSITIVE LOOSE DARK BROWNISH STOOL NOTED, COLOSTOMY BAG CHANGED. ALL NEEDS AND CARE PROVIDED WELL. WILL ENDORSED TO NEXT SHIFT FOR CONTINUITY OF CARE
[2017-03-11 20:00] VITALS: BP_SYST 111; BP_SYST 144; BP_DIAS 68; BP_DIAS 69
--- NOTE | 2017-03-11 20:25 | NUR ---
RN INITIAL NOTES RECEIVED PT AWAKE IN BED, ABLE TO MAKE NEEDS KNOWN. ON MECHANICAL VENTILATOR, TOLERATED WELL. RESPIRATIONS EVEN AND UNLABORED, DENIES ANY PAIN OR DISCOMFORT AT THIS TIME. IV ACCESS PATENT AND INTACT NO REDNESS OR INFILTRATION NOTED, PATIENT WITH SUPRAPUBIC CATHETER IN PLACE PATENT AND INTACT, CONTINUE TO MONITOR. SAFETY MEASURES IN PLACE, CONTINUE TO MONITOR AT THIS TIME
[2017-03-12] VITALS (8 sets, daily range): BP systolic 77–110; BP diastolic 45–72
[2017-03-12] MEDS: BLOOD SUGAR DIAGNOSTIC 1 EACH STRIP IN SCH ×4 (05:29→23:23)
[2017-03-12] MEDS: METOCLOPRAMIDE HCL 10 MG TABLET GT SCH ×3 (05:30→21:38)
[2017-03-12] MEDS: RENAL NOVASOURCE 1,000 ML BOTTLE GT PRN (06:23)
--- NOTE | 2017-03-12 06:24 | NUR ---
RN CLOSING TELE NOTES ENDORSED PT AWAKE IN BED, ABLE TO MAKE NEEDS KNOWN. ON MECHANICAL VENTILATOR, TOLERATED WELL. RESPIRATIONS EVEN AND UNLABORED, DENIES ANY PAIN OR DISCOMFORT AT THIS TIME. IV ACCESS PATENT AND INTACT NO REDNESS OR INFILTRATION NOTED, PATIENT WITH SUPRAPUBIC CATHETER IN PLACE PATENT AND INTACT, CONTINUE TO MONITOR. SAFETY MEASURES IN PLACE, CONTINUE TO MONITOR AT THIS TIME, HD IN AM.
[2017-03-12 07:29] LABS: BASOPHILS % (AUTO) 0.2 % (0.0-2.0); EOSINOPHILS % (AUTO) 8.8 % (0.0-6.0); HEMATOCRIT 37 % (39-51); HEMOGLOBIN 11.4 g/dL (13.5-17.5); LYMPHOCYTES # (AUTO) 0.6 /CMM (0.8-4.8); LYMPHOCYTES % (AUTO) 5.4 % (20.0-44.0); MEAN CORPUSCULAR HEMOGLOBIN 31 PG (26.0-33.0); MEAN CORPUSCULAR HGB CONC 31 g/dl (31.0-36.0); MEAN CORPUSCULAR VOLUME 99 fL (80-96); MONOCYTES # (AUTO) 1.5 /CMM (0.1-1.30); NEUTROPHILS # (AUTO) 8.6 /CMM (1.8-8.9); NEUTROPHILS % (AUTO) 72.6 % (43.0-81.0); PLATELET COUNT (AUTO) 324 /CMM (150-450); RDW COEFFICIENT OF VARIATION 17.7 (11.5-15.0); RED BLOOD CELL COUNT(AUTO) 3.72 MIL/uL (4.5-6.0); WHITE BLOOD COUNT (AUTO) 11.8 K/uL (4.3-11.0)
--- NOTE | 2017-03-12 07:35 | NUR ---
BUSBOY OPENING NOTE RECEIVED PATIENT IN THE BED, ASLEEP, ON MECHANICAL VENTILATION, NO S/S OF DISTRESS NOTED, CALL LIGHT IN REACH, BED IN THE LOW POSITION
[2017-03-12 07:53] LABS: CREATININE 6.1 mg/dL (0.6-1.3); MAGNESIUM 2.8 mg/dL (1.8-2.4); PHOSPHORUS 4.3 mg/dL (2.5-4.9); POTASSIUM 3.6 mmol/L (3.5-5.1)
[2017-03-12] MEDS: ONDANSETRON HCL/PF 4 MG/2 ML VIAL IV PRN (08:35)
[2017-03-12] MEDS: AMLODIPINE BESYLATE 5 MG TABLET GT SCH (09:00)
[2017-03-12] MEDS: HYDROGEL DRESSING 90 GM TUBE TP SCH (09:11)
[2017-03-12] MEDS: GABAPENTIN 300 MG CAPSULE GT SCH ×3 (09:16→16:45)
[2017-03-12] MEDS: CHLORHEXIDINE GLUCONATE 15 ML UDC MM SCH ×2 (09:16→21:37)
[2017-03-12] MEDS: LEVETIRACETAM SOL (5 ML) 100 MG/ML UDC GT SCH ×2 (09:16→16:46)
[2017-03-12] MEDS: ESCITALOPRAM OXALATE (10 MG) 10 MG TABLET GT SCH (09:16)
[2017-03-12] MEDS: MIDODRINE HCL (5MG) 5 MG TABLET GT SCH ×3 (09:17→16:46)
[2017-03-12] MEDS: PANTOPRAZOLE 40 MG/PACK PACK GT SCH ×2 (09:21→21:37)
[2017-03-12] MEDS: SEVELAMER CARBONATE 0.8 GM POWD.PACK GT SCH ×3 (09:21→16:45)
[2017-03-12] MEDS: VIT B CMPLX 3/FA/VIT C/BIOTIN 1 TAB TABLET GT SCH (09:21)
[2017-03-12] MEDS: PROSOURCE / PROSTAT (PYXIS) 30 ML UDC GT SCH ×2 (09:22→16:48)
[2017-03-12] MEDS: ALBUMIN 25% 25 GM in PREMIX 1 EA IV PRN (15:54)
[2017-03-12] MEDS ORDERED: IV NS 0.9% 1,000 ML BAG IV ONE (16:30)
--- NOTE | 2017-03-12 17:15 | NUR ---
ACCOUNTS PAYABLES CLERKVIVIANA BARROSO CHECKED BS 55, ADMINISTERED DEXTROSE IVBP
--- NOTE | 2017-03-12 19:30 | NUR ---
TELE CLOSING NOTE PATIENT IS ALERT, ORIENTED X2, NO S/S OF DISTRESS NOTED, NO S/S OF PAIN NOTED, CALL LIGHT WITHIN REACH, ALL NEEDS ATTENDED, PROVIDED REPORT TO UPCOMING NURSE
[2017-03-12] MEDS: IV D5/ 0.9% NACL 1,000 ML IV PRN (23:27)
[2017-03-13] VITALS: BP 97/64
[2017-03-13 04:00] VITALS: BP 105/66
[2017-03-13] MEDS: METOCLOPRAMIDE HCL 10 MG TABLET GT SCH ×3 (05:35→20:28)
[2017-03-13] MEDS: BLOOD SUGAR DIAGNOSTIC 1 EACH STRIP IN SCH ×3 (05:35→18:20)
[2017-03-13] MEDS: ACETAMINOPHEN 650 MG/20.3 ML UDC GT PRN ×2 (06:44→07:08)
--- NOTE | 2017-03-13 07:39 | NUR ---
RN NOTE OPENING RECEIVED PATIENT IN BED, ALERT/AWAKE. PERIPHERAL IV ON THE RIGHT ANTICUBITAL IS OUT, NOTIFIED NIGHT NURSE, NIGHT NURSE WILL REINSERT PERIPHERAL IV, CALL LIGHT WITHIN REACH, SIDE RAILS UP X 2, WILL CONTINUE TO MONITOR
[2017-03-13] MEDS: CHLORHEXIDINE GLUCONATE 15 ML UDC MM SCH ×2 (07:58→20:27)
[2017-03-13] MEDS: LEVETIRACETAM SOL (5 ML) 100 MG/ML UDC GT SCH ×2 (07:58→17:30)
[2017-03-13] MEDS: ESCITALOPRAM OXALATE (10 MG) 10 MG TABLET GT SCH (07:58)
[2017-03-13] MEDS: SEVELAMER CARBONATE 0.8 GM POWD.PACK GT SCH ×3 (07:58→17:30)
[2017-03-13] MEDS: PANTOPRAZOLE 40 MG/PACK PACK GT SCH ×2 (07:59→20:27)
[2017-03-13] MEDS: VIT B CMPLX 3/FA/VIT C/BIOTIN 1 TAB TABLET GT SCH (07:59)
[2017-03-13 08:00] VITALS: BP 108/58
[2017-03-13] MEDS: MIDODRINE HCL (5MG) 5 MG TABLET GT SCH ×3 (08:02→17:30)
[2017-03-13] MEDS: GABAPENTIN 300 MG CAPSULE GT SCH ×3 (08:03→17:30)
[2017-03-13] MEDS: AMLODIPINE BESYLATE 5 MG TABLET GT SCH (08:04)
[2017-03-13] MEDS: PROSOURCE / PROSTAT (PYXIS) 30 ML UDC GT SCH ×2 (08:05→17:35)
[2017-03-13] MEDS: HYDROGEL DRESSING 90 GM TUBE TP SCH (08:06)
--- NOTE | 2017-03-13 08:15 | NUR ---
RN NOTE CHARGE NURSE MINA INSERTED PERIPHERAL IV IN THE RIGHT WRIST, 22 GAUGE, GOOD BLOOD RETURN, NO S/S OF REDNESS OR INFECTION NOTED
[2017-03-13 12:00] VITALS: BP 106/56
[2017-03-13 16:00] VITALS: BP 129/69
--- NOTE | 2017-03-13 19:21 | NUR ---
TRACK SUBWAY REPAIR SUPERVISOR CLOSING NOTE PATIENT IS IN STABLE CONDITION. ALL NEEDS WERE MET. CALL LIGHT IS WITHIN REACH. IN NO APPARENT DISTRESS. PATIENT IS AWAKE. BEDSIDE RAILS ARE UP X2. BED IS LOCKED AND LOWERED. WILL ENDORSE CARE TO CLINICAL RN NURSE .
--- NOTE | 2017-03-13 19:30 | NUR ---
GRAIN LOADER RCD PT W/DX GI BLEED; NO ACTIVE BLEEDING NOTED. PT A/O ABLE TO MAKE NEEDS KNOWN. NSR ON MONITOR W/ EPISODES OF NON SUSTAINED SINUS LINETTE. COLOSTOMY INTACT. NPO PENDING FAMILY DECISION FOR G TUBE REPLACEMENT. CONTINUE TO MONITOR.
[2017-03-13 20:00] VITALS: BP 128/62
[2017-03-13] MEDS: LORAZEPAM 1 MG TABLET GT PRN (20:28)
--- NOTE | 2017-03-13 20:28 | NUR ---
RESEARCH PROGRAM INTERN PT GIVEN ATIVAN 1 MG HE IS VERY AGITATED REGARDING HIS CONDITION; PT WITH MULTIPLE QUESTIONS REGARDING HIS CARE. STATING IT IS NOT FAIR HE SHOULD HAVE ANOTHER SURGERY; STATING THIS IS THE LAST THING HE NEEDS. PROVIDED PT WITH EDUCATION REGARDING HIS CARE. CONTINUE TO MONITOR.
[2017-03-14] VITALS: BP 133/75
--- NOTE | 2017-03-14 00:29 | NUR ---
LINE UP WORKER BLOOD SUGAR 87; NO COVERAGE PER SLIDING SCALE. CONTINUE TO MONITOR.
[2017-03-14] MEDS: BLOOD SUGAR DIAGNOSTIC 1 EACH STRIP IN SCH ×6 (00:32→23:21)
[2017-03-14] MEDS: IV D5/ 0.9% NACL 1,000 ML IV PRN ×2 (03:16→23:21)
[2017-03-14 04:00] VITALS: BP 142/74
[2017-03-14] MEDS: METOCLOPRAMIDE HCL 10 MG TABLET GT SCH ×3 (05:33→21:05)
--- NOTE | 2017-03-14 05:36 | NUR ---
CLOCK MECHANIC BLOOD SUGAR 73; NO COVERAGE PER SLIDING SCALE. CONTINUE TO MONITOR.
--- NOTE | 2017-03-14 07:51 | NUR ---
RN INITIAL NOTES: PATIENT RECEIVED ASLEEP IN BED, NO DISTRESS NOTED . ON MECH VENT VIA TRACH, SATURATING AT 100%. ON TELEMONITOR, HAS GTUBE INTACT, CLAMPED AT THIS TIME DUE GI BLEED , PATIENT REMAINS NPO IV LINE, SL, FLUSHED PATENT & INTACT W/ NO S/SX OF INFECTION/ INFILTRATION NOTED. RN PROVIDED COMFORT AND SAFETY MEASURES. CALL LIGHT PLACED W/IN REACH. BED KEPT LOW & IN LOCKED POSITION. RN WILL CONTINUE TO MONITOR THROUGHOUT THE DAY .
[2017-03-14] MEDS: ACETAMINOPHEN 650 MG/20.3 ML UDC GT PRN ×2 (07:56→17:14)
[2017-03-14 08:00] VITALS: BP_SYST 100; BP_SYST 143; BP_DIAS 51; BP_DIAS 58
[2017-03-14] MEDS: ESCITALOPRAM OXALATE (10 MG) 10 MG TABLET GT SCH (08:00)
[2017-03-14] MEDS: PANTOPRAZOLE 40 MG/PACK PACK GT SCH ×2 (08:00→21:05)
[2017-03-14] MEDS: GABAPENTIN 300 MG CAPSULE GT SCH ×3 (08:00→17:15)
[2017-03-14] MEDS: MIDODRINE HCL (5MG) 5 MG TABLET GT SCH ×3 (08:01→17:15)
[2017-03-14] MEDS: AMLODIPINE BESYLATE 5 MG TABLET GT SCH (08:01)
[2017-03-14] MEDS: SEVELAMER CARBONATE 0.8 GM POWD.PACK GT SCH ×3 (08:01→17:15)
[2017-03-14] MEDS: CHLORHEXIDINE GLUCONATE 15 ML UDC MM SCH ×2 (08:01→21:04)
[2017-03-14] MEDS: VIT B CMPLX 3/FA/VIT C/BIOTIN 1 TAB TABLET GT SCH (08:01)
[2017-03-14] MEDS: LEVETIRACETAM SOL (5 ML) 100 MG/ML UDC GT SCH ×2 (08:02→17:15)
[2017-03-14] MEDS: PROSOURCE / PROSTAT (PYXIS) 30 ML UDC GT SCH ×2 (08:04→17:16)
[2017-03-14] MEDS: HYDROGEL DRESSING 90 GM TUBE TP SCH (08:07)
[2017-03-14] MEDS: ALBUMIN 25% 25 GM in PREMIX 1 EA IV PRN (10:43)
--- NOTE | 2017-03-14 11:31 | NUR ---
RN NOTE PATIENT VILLA CATH REMOVED , PATIENT BED BATH GIVEN AT THIS TIME , PATIENT STILL REFUSING ALL CARE CHARGE NURSE NOTIFIED PATIENT UPDATED ON PLAN OF CARE
[2017-03-14 12:00] VITALS: BP 124/69
[2017-03-14 16:00] VITALS: BP 113/59
--- NOTE | 2017-03-14 19:05 | NUR ---
RIB PULLER CLOSING NOTE PATIENT IS IN BED , STABLE CONDITION. ALL NEEDS MET THROUGHOUT THE SHIFT . CALL LIGHT IS WITHIN REACH. IN NO APPARENT DISTRESS OR SOB NOTED NO PAIN NOTED COLOSTOMY CHANGED STOMA CARE PERFORMED PATIENT COMPLAINED OF FEELING COLD THROUGHOUT THE DAY WARM BLANKETS GIVEN PATIENT AFEBRILE THROUGHOUT THE DAY PATIENT IS AWAKE. BEDSIDE RAILS ARE UP X2. BED IS LOCKED AND LOWERED. WILL ENDORSE CARE TO INSTRUMENTAL TEACHER NURSE .
[2017-03-14 20:00] VITALS: BP 146/80
[2017-03-14] MEDS: ZOLPIDEM TARTRATE 5 MG TABLET GT PRN (21:04)
[2017-03-15] VITALS (7 sets, daily range): BP systolic 105–156; BP diastolic 57–98
[2017-03-15] MEDS: BLOOD SUGAR DIAGNOSTIC 1 EACH STRIP IN SCH ×4 (06:27→23:39)
--- NOTE | 2017-03-15 06:45 | NUR ---
CAR WHACKER - REC'D REPORT AT 02:15AM. NO CHANGES FROM PREVIOUS ASSESSMENTS. PT. RESING W/EYES CLOSED. CONT. POC.
[2017-03-15] MEDS: METOCLOPRAMIDE HCL 10 MG TABLET GT SCH ×3 (06:55→21:00)
--- NOTE | 2017-03-15 07:15 | NUR ---
RN INITIAL NOTES RECEIVED PT AWAKE, A/OX2. [facility] SETTINGS: AC16, TV500, FI02 40%, PEEP 0. TRACH IN PLACE. HOB ELEVATED. NO SOB NOTED. NO SIGNS OF PAIN NOTED. GT CLAMPED. PT ON NPO. LANEY MIDLINE IN PLACE. IVF INFUSING. COLOSTOMY INTACT. BLE ELEVATED. PT REPOSITIONED. PT COMFORTABLE. WILL MONITOR.
[2017-03-15 07:28] LABS: BASOPHILS % (AUTO) 0.1 % (0.0-2.0); EOSINOPHILS # (AUTO) 0.7 /CMM (0.0-0.7); EOSINOPHILS % (AUTO) 4.3 % (0.0-6.0); HEMATOCRIT 29 % (39-51); HEMOGLOBIN 9.2 g/dL (13.5-17.5); LYMPHOCYTES # (AUTO) 0.5 /CMM (0.8-4.8); MEAN CORPUSCULAR HEMOGLOBIN 31 PG (26.0-33.0); MEAN CORPUSCULAR HGB CONC 32 g/dl (31.0-36.0); MEAN CORPUSCULAR VOLUME 100 fL (80-96); MONOCYTES % (AUTO) 18.4 % (2.0-12.0); NEUTROPHILS # (AUTO) 12.1 /CMM (1.8-8.9); NEUTROPHILS % (AUTO) 74.2 % (43.0-81.0); PLATELET COUNT (AUTO) 205 /CMM (150-450); RED BLOOD CELL COUNT(AUTO) 2.93 MIL/uL (4.5-6.0); WHITE BLOOD COUNT (AUTO) 16.3 K/uL (4.3-11.0)
[2017-03-15 07:53] LABS: CALCIUM, SERUM 10.2 mg/dL (8.5-10.1); CREATININE 4.2 mg/dL (0.6-1.3); MAGNESIUM 2.1 mg/dL (1.8-2.4); PHOSPHORUS 3.2 mg/dL (2.5-4.9); POTASSIUM 3.7 mmol/L (3.5-5.1)
[2017-03-15] MEDS: MIDODRINE HCL (5MG) 5 MG TABLET GT SCH ×3 (08:18→17:00)
[2017-03-15] MEDS: CHLORHEXIDINE GLUCONATE 15 ML UDC MM SCH ×2 (08:18→22:00)
[2017-03-15] MEDS: PROSOURCE / PROSTAT (PYXIS) 30 ML UDC GT SCH ×2 (08:18→17:00)
[2017-03-15] MEDS: VIT B CMPLX 3/FA/VIT C/BIOTIN 1 TAB TABLET GT SCH (08:18)
[2017-03-15] MEDS: AMLODIPINE BESYLATE 5 MG TABLET GT SCH (08:18)
[2017-03-15] MEDS: SEVELAMER CARBONATE 0.8 GM POWD.PACK GT SCH ×3 (08:18→17:00)
[2017-03-15] MEDS: LEVETIRACETAM SOL (5 ML) 100 MG/ML UDC GT SCH ×2 (08:18→17:00)
[2017-03-15] MEDS: ESCITALOPRAM OXALATE (10 MG) 10 MG TABLET GT SCH (08:18)
[2017-03-15] MEDS: GABAPENTIN 300 MG CAPSULE GT SCH ×3 (08:18→17:00)
[2017-03-15] MEDS: PANTOPRAZOLE 40 MG/PACK PACK GT SCH ×2 (08:18→21:00)
[2017-03-15] MEDS: HYDROGEL DRESSING 90 GM TUBE TP SCH (08:19)
[2017-03-15 10:05] LABS: BAND % (MANUAL) 7 % (0.0-5.0); EOSINOPHILS % (MANUAL) 7 % (0-4); MONOCYTES % (MANUAL) 8 % (0-11.0); NEUTROPHILS % (MANUAL) 78 (42-76)
[2017-03-15 10:47] LABS: PROTHROMBIN TIME 10.4 SECS (9.5-12.7)
[2017-03-15] MEDS ORDERED: FENTANYL PF 100MCG/2ML AMPUL ONE ×2 (12:49→14:17)
[2017-03-15] MEDS ORDERED: ATRACURIUM 100MG/10 ML MDV IV ONE (12:49)
--- NOTE | 2017-03-15 13:00 | NUR ---
RN NOTES PT WENT TO OR VIA BED. PT AWAKE, A/OX2. NO RESPIRATORY DISTRESS NOTED. NO SOB NOTED. DENIES ANY PAIN. LEFT IN STABLE CONDITION
[2017-03-15] MEDS ORDERED: BUPIVACAINE 0.5 % PF 150 MG/30 ML VIAL ONE (13:05)
[2017-03-15] MEDS ORDERED: CLINDAMYCIN 900 MG/6 ML VIAL ONE ×2 (13:05→13:06)
[2017-03-15] MEDS ORDERED: LIDOCAINE 2%-EPI 1:200,000 20 ML VIAL IJ ONE (13:06)
[2017-03-15] MEDS ORDERED: CELLULOSE,OXIDIZED 1 EA PACK MC ONE ×2 (14:41→15:02)
--- NOTE | 2017-03-15 15:50 | NUR ---
RN NOTES PT BACK FROM OR. PT SEDATED. VITAL SIGNS STABLE. PT PLACED COMFORTABLY TO BED, CONNECTED TO MECH VENT. NO RESPIRATORY DISTRESS NOTED. NO SOB NOTED. NO SIGNS OF PAIN NOTED. JERMAINE DRAIN IN PLACE. NEW GT IN PLACE. OLD GT STOMA COVERED WITH DRY DRESSING. WILL CLOSELY MONITOR.
[2017-03-15] MEDS: IV D5/ 0.9% NACL 1,000 ML IV PRN (17:23)
--- NOTE | 2017-03-15 18:47 | NUR ---
RN CLOSING NOTES PT STABLE. NO RESPIRATORY DISTRESS NOTED. NO SIGNS OF PAIN NOTED. MIDLINE IN PLACE. TOLERATING IVF. HD CATH INTACT. GTF IN PLACE. JERMAINE DRAIN IN PLACE. COLOSTOMY INTACT. SUPRAPUBIC CATH IN PLACE. KEPT CLEAN AND DRY. REPOSITIONED Q2. BLE ELEVATED. CALL LIGHT WITHIN REACH. WILL ENDORSE FOR CONTINUITY OF CARE.
--- NOTE | 2017-03-15 20:00 | NUR ---
TELE 1 RN NOTE RECEIVED PT IN BED ASLEEP, ARSOUSABLE, NO DISTRESS OR DISCOMFORT NOTED. ON VENT/TRACH TOLERATING THE SETTINGS WELL. PT IS A/O X2. ON TELE SR HR 73. PT IS S/P GT PLACEMENT. WILL START GT FEEDING IN AM PER DAY SHIFT NURSE. GT CLAMPED. JERMAINE DRAINAGE INTACT AND PATENT DRAINING SEROUS FLUIDS. SUPRAPUBIC CATH IN PLACE, INTACT AND PATENT DRAINING YELLOWISH COLOR URINE. PT REMAIN NPO TILL AM. SX DRESSING I/C/D ON ABD. RLQ WITH COLOSTOMY INTACT AND PATENT. 0 ML OUTPUT NOTED. REPOSITION HIM FOR SKIN MANAGEMENT AND COMFORT. KEPT HIM DRY AND CLEAN. ALL NEEDS ATTENDED. VSS. CONTINUE TO MONITOR HIM.
--- NOTE | 2017-03-15 23:50 | NUR ---
TELE 1 RN NOTE PT C/O PAIN 11/19 ABD AREA, DR CHIU CALLED, RECEIVED NEW ORDER. DILAUDID 0.5 MG IVP GIVEN.
[2017-03-15] MEDS ORDERED: HYDROMORPHONE 1 MG/1 ML DISP.SYRIN ONE (23:51)
[2017-03-16] VITALS (8 sets, daily range): BP systolic 99–147; BP diastolic 56–93
[2017-03-16] MEDS ORDERED: HYDROMORPHONE 1 MG/1 ML DISP.SYRIN IV PRN
--- NOTE | 2017-03-16 00:15 | NUR ---
TELE 1 RN NOTE PAIN SUBSIDED /. PT FALL ASLEEP, AROUSABLE. CONTINUE TO MONITOR HIM.
[2017-03-16] MEDS: METOCLOPRAMIDE HCL 10 MG TABLET GT SCH ×3 (04:22→22:03)
[2017-03-16] MEDS: BLOOD SUGAR DIAGNOSTIC 1 EACH STRIP IN SCH ×4 (05:54→23:30)
--- NOTE | 2017-03-16 06:38 | NUR ---
TELE 1 RN NOTE PT IN BED ASLEEP, AROUSABLE. NO CHANGE IN CONDITION NOTED. PT REMAIN NPO. GT INTACT AND PATENT. WILL ENDORSE TO DAY SHIFT NURSE TO START GTF ORDERED. IVF INFUSING WELL, NO S/S OF INFILTRATION NOTED. SIDE RAILS UP X 2 AND CALL LIGHT WITHIN REACH. WILL ENDORSE TO DAY SHIFT NURSE FOR CONTINUE TO CARE.
[2017-03-16] MEDS: CHLORHEXIDINE GLUCONATE 15 ML UDC MM SCH ×2 (08:54→22:04)
[2017-03-16] MEDS: MIDODRINE HCL (5MG) 5 MG TABLET GT SCH ×3 (08:55→17:31)
[2017-03-16] MEDS: VIT B CMPLX 3/FA/VIT C/BIOTIN 1 TAB TABLET GT SCH (08:55)
[2017-03-16] MEDS: ESCITALOPRAM OXALATE (10 MG) 10 MG TABLET GT SCH (08:55)
[2017-03-16] MEDS: PANTOPRAZOLE 40 MG/PACK PACK GT SCH ×2 (08:55→22:03)
[2017-03-16] MEDS: SEVELAMER CARBONATE 0.8 GM POWD.PACK GT SCH ×3 (08:56→17:31)
[2017-03-16] MEDS: GABAPENTIN 300 MG CAPSULE GT SCH ×3 (08:56→17:31)
[2017-03-16] MEDS: PROSOURCE / PROSTAT (PYXIS) 30 ML UDC GT SCH ×2 (08:56→17:31)
[2017-03-16] MEDS: AMLODIPINE BESYLATE 5 MG TABLET GT SCH (08:56)
[2017-03-16] MEDS: LEVETIRACETAM SOL (5 ML) 100 MG/ML UDC GT SCH ×2 (08:57→17:34)
[2017-03-16] MEDS: RENAL NOVASOURCE 1,000 ML BOTTLE GT PRN (08:57)
[2017-03-16] MEDS: HYDROGEL DRESSING 90 GM TUBE TP SCH (09:14)
[2017-03-16] MEDS ORDERED: MORPHINE SULFATE INJ 2 MG/ML DISP.SYRIN IM PRN (09:30)
[2017-03-16] MEDS ORDERED: KETOROLAC TROMETHAMINE INJ 30 MG/ML VIAL IM PRN (10:00)
[2017-03-16] MEDS: IV D5/ 0.9% NACL 1,000 ML IV PRN (13:03)
--- NOTE | 2017-03-16 17:59 | NUR ---
RN CLOSING NOTES PT TOLERATED TF AT 35 ML/HR MINIMAL RESIDUALS. 5ML SERSANG JERMAINE OUTPUT. TORADOL 15MG EFFECTIVE FOR PAIN X 1 ONE THIS SHIFT. NO COLOSTOMY OUTPUT. HOB ELEVATED. VENT TRACH SETTINGS UNCHANGED. SIDE RAILS UP X 2. CALL LIGHT IN REACH. WILL ENDORSE TO VIVIEN RN.
--- NOTE | 2017-03-16 20:00 | NUR ---
TELE 1 RN NOTE PT IN BED ASLEEP, AROUSABLE. A/O X 1-2. NO SOB, NO DISTRESS OR DISCOMFORT NOTED. ON VENT/TRACH TOLERATING THE SETTINGS WELL. SUCTIONED HIM PRN SMALL WHITE THIN SECRETIONS NOTED. HD IN PROGRESS TOLERATING WELL. GT FEEDING NOVASOURCE INFUSING AT 35 ML/HR, 5 ML RESIDUAL NOTED. KEPT HOB ELEVATED. IVF D5NS @ 50 ML/HR, NO S/S OF INFILTRATION NOTED LANEY# 18 G. COLOSTOMY RLQ INTACT AND PATENT 0 OUTPUT NOTED. SUPRAPUBIC CATH INTACT AND PATENT DRAINING YELLOWISH COLOR URINE. REPOSITION HIM Q2H, SIDE RAILS UP X 3 AND CALL LIGHT WITHIN REACH. CONTINUE TO MONITOR HIM. Addendum: 03/16/17 at 2021 by ZEYAD LUJAN RN ON TELE SR HR 99.
--- NOTE | 2017-03-16 20:20 | NUR ---
TELE 1 RN NOTE ALBUMIN 25 G GIVEN WITH HD DUE LOW B/P ORDERED.
[2017-03-16] MEDS ORDERED: ALBUMIN 25% 25 GM in PREMIX 1 EA IV PRN (20:30)
[2017-03-17] VITALS: BP 102/53
[2017-03-17 04:00] VITALS: BP 115/69
[2017-03-17] MEDS: METOCLOPRAMIDE HCL 10 MG TABLET GT SCH ×2 (05:55→12:35)
[2017-03-17] MEDS: BLOOD SUGAR DIAGNOSTIC 1 EACH STRIP IN SCH ×3 (06:01→16:34)
--- NOTE | 2017-03-17 06:30 | NUR ---
TELE 1 RN NOTE PT IN BED ASLEEP, AROUSABLE, NO DISTRESS OR DISCOMFORT NOTED. ON TELE SR HR 86, NO CHANGE IN CONDITION DURING THE SHIFT. GTF INFUSING WELL, 10 ML RESIDUAL NOTED. REPOSITION HIM Q2H. SUPRAPUBIC CATH INTACT AND PATENT DRAINING CLOUDY ROSALES COLOR URINE. COLOSTOMY BAG CHANGED. JERMAINE DRAINAGE INTACT AND PATENT DRAINED 20 ML SEROSANGUINEOUS FLUID. KEPT HIM DRY AND CLEAN. FREQUENTLY SUCTIONED THE PT DURING THE SHIFT. KEPT HIM DRY AND CLEAN. ALL NEEDS ATTENDED. SIDE RAILS UP X 3 AND CALL LIGHT WITHIN REACH. WILL ENDORSE TO DAY SHIFT NURSE FOR CONTINUE TO CARE.
[2017-03-17 08:00] VITALS: BP 92/50
--- NOTE | 2017-03-17 08:00 | NUR ---
PT VOMITTED X3 ZOFRAN WILL BE GIVEN.
[2017-03-17] MEDS: GABAPENTIN 300 MG CAPSULE GT SCH ×3 (08:12→16:28)
[2017-03-17] MEDS: SEVELAMER CARBONATE 0.8 GM POWD.PACK GT SCH ×3 (08:13→16:27)
[2017-03-17] MEDS: MIDODRINE HCL (5MG) 5 MG TABLET GT SCH ×3 (08:13→16:34)
[2017-03-17] MEDS: ESCITALOPRAM OXALATE (10 MG) 10 MG TABLET GT SCH (08:13)
[2017-03-17] MEDS: PANTOPRAZOLE 40 MG/PACK PACK GT SCH (08:13)
[2017-03-17] MEDS: VIT B CMPLX 3/FA/VIT C/BIOTIN 1 TAB TABLET GT SCH (08:13)
[2017-03-17] MEDS: LEVETIRACETAM SOL (5 ML) 100 MG/ML UDC GT SCH ×2 (08:13→16:28)
[2017-03-17] MEDS: HYDROGEL DRESSING 90 GM TUBE TP SCH (08:14)
[2017-03-17] MEDS: ONDANSETRON HCL/PF 4 MG/2 ML VIAL IV PRN (08:14)
[2017-03-17] MEDS: CHLORHEXIDINE GLUCONATE 15 ML UDC MM SCH (08:16)
[2017-03-17 08:55] LABS: CALCIUM, SERUM 9.2 mg/dL (8.5-10.1); CREATININE 4.3 mg/dL (0.6-1.3)
[2017-03-17 08:56] LABS: EOSINOPHILS # (AUTO) 0.3 /CMM (0.0-0.7); EOSINOPHILS % (AUTO) 1.6 % (0.0-6.0); HEMATOCRIT 25 % (39-51); HEMOGLOBIN 8.1 g/dL (13.5-17.5); LYMPHOCYTES # (AUTO) 0.6 /CMM (0.8-4.8); LYMPHOCYTES % (AUTO) 2.6 % (20.0-44.0); MEAN CORPUSCULAR HEMOGLOBIN 32 PG (26.0-33.0); MEAN CORPUSCULAR HGB CONC 32 g/dl (31.0-36.0); MEAN CORPUSCULAR VOLUME 100 fL (80-96); MONOCYTES # (AUTO) 2.4 /CMM (0.1-1.30); MONOCYTES % (AUTO) 11.2 % (2.0-12.0); NEUTROPHILS # (AUTO) 17.8 /CMM (1.8-8.9); NEUTROPHILS % (AUTO) 84.6 % (43.0-81.0); PLATELET COUNT (AUTO) 152 /CMM (150-450); RDW COEFFICIENT OF VARIATION 17.9 (11.5-15.0); RED BLOOD CELL COUNT(AUTO) 2.56 MIL/uL (4.5-6.0); WHITE BLOOD COUNT (AUTO) 21.1 K/uL (4.3-11.0)
[2017-03-17] MEDS: AMLODIPINE BESYLATE 5 MG TABLET GT SCH (09:00)
[2017-03-17] MEDS: IV D5/ 0.9% NACL 1,000 ML IV PRN (09:28)
[2017-03-17] MEDS: PROSOURCE / PROSTAT (PYXIS) 30 ML UDC GT SCH ×2 (09:31→16:34)
[2017-03-17 10:12] LABS: BAND % (MANUAL) 1 % (0.0-5.0); LYMPHOCYTES % (MANUAL) 3 % (16-48); MONOCYTES % (MANUAL) 10 % (0-11.0); NEUTROPHILS % (MANUAL) 86 (42-76)
[2017-03-17] MEDS: RENAL NOVASOURCE 1,000 ML BOTTLE GT PRN (10:42)
[2017-03-17] MEDS ORDERED: RENAL NOVASOURCE 1,000 ML BOTTLE GT PRN (10:58)
[2017-03-17 12:00] VITALS: BP 106/62
[2017-03-17] MEDS ORDERED: METOCLOPRAMIDE HCL 10 MG/2 ML VIAL IV SCH (13:00)
[2017-03-17 16:00] VITALS: BP 125/65
[2017-03-17 16:34] VITALS: BP 125/65
--- NOTE | 2017-03-17 17:57 | NUR ---
CONCRETE PIPE PLANT SUPERVISOR NOTE PT DC TO [facility] CALLED AND REPORT GIVEN CATE. PT STABLE. ALL DC INSTRUCTIONS AND PAPERWORK GIVEN TO EMT. ALL QUESTIONS ANSWERED. CANDELARIA REFUSED PHOTOS. PT EXPLAINED HE HAD ALREADY BEEN GIVEN A BATH TWICE AND WANTED TO JUS GO HOME. IV AND ID BAND REMOVED. ALL ORDERS CARRIED OUT. F/U WITH PRASANTH SALDANA IN 1-2 WEEKS CONTACT INFORMATION GIVEN . JERMAINE DRAIN STILL INTACT WILL 0 DRAINAGE THROUGH OUT MY SHIFT.NO BELONGINGS WITH PATIENT.
[2017-03-19] MEDS ORDERED: METOCLOPRAMIDE HCL 10 MG/2 ML VIAL IV SCH (13:00)
== END 2017-03-17 18:05 | DRG 220 ==
LOC: ER 20:59 → TELE-TD 23:06 → TELE1 03-08 10:35
PROVIDERS: ADMIT Internal Medicine Nephrology; ATTEND Internal Medicine Nephrology
PROC: 5A1955Z Respiratory Ventilation, Greater than 96 Consecutive Hours (ICD-10-PCS; principal; 2017-03-04)
PROC: 5A1D70Z Performance of Urinary Filtration, Intermittent, Less than 6 Hours Per Day (ICD-10-PCS; 2017-03-05)
PROC: B547ZZA Ultrasonography of Left Subclavian Vein, Guidance (ICD-10-PCS; 2017-03-13)
PROC: 05H633Z Insertion of Infusion Device into Left Subclavian Vein, Percutaneous Approach (ICD-10-PCS; 2017-03-13)
PROC: 0DH63UZ Insertion of Feeding Device into Stomach, Percutaneous Approach (ICD-10-PCS; 2017-03-15)
PROC: 0DN64ZZ Release Stomach, Percutaneous Endoscopic Approach (ICD-10-PCS; 2017-03-15)
PROC: 0DT64ZZ Resection of Stomach, Percutaneous Endoscopic Approach (ICD-10-PCS; 2017-03-15)
PROC: 0JB80ZZ Excision of Abdomen Subcutaneous Tissue and Fascia, Open Approach (ICD-10-PCS; 2017-03-15)
DX: K31.6 Fistula of stomach and duodenum (principal); Z99.11 Dependence on respirator [ventilator] status; L89.153 Pressure ulcer of sacral region, stage 3; J84.10 Pulmonary fibrosis, unspecified; J96.11 Chronic respiratory failure with hypoxia; L89.323 Pressure ulcer of left buttock, stage 3; E11.22 Type 2 diabetes mellitus with diabetic chronic kidney disease; Z93.0 Tracheostomy status; K56.7 Ileus, unspecified; L89.313 Pressure ulcer of right buttock, stage 3; I13.11 Hypertensive heart and chronic kidney disease without heart failure, with stage 5 chronic kidney disease, or end stage renal disease; R13.10 Dysphagia, unspecified; N18.6 End stage renal disease; Z93.1 Gastrostomy status; Z99.2 Dependence on renal dialysis; Z93.3 Colostomy status; Q05.9 Spina bifida, unspecified; E11.43 Type 2 diabetes mellitus with diabetic autonomic (poly)neuropathy; Z88.0 Allergy status to penicillin; Z88.2 Allergy status to sulfonamides; Z91.041 Radiographic dye allergy status; G82.20 Paraplegia, unspecified; Z79.899 Other long term (current) drug therapy; Z79.84 Long term (current) use of oral hypoglycemic drugs; L89.892 Pressure ulcer of other site, stage 2; Z87.11 Personal history of peptic ulcer disease; N31.9 Neuromuscular dysfunction of bladder, unspecified; Z87.01 Personal history of pneumonia (recurrent); M41.9 Scoliosis, unspecified; K20.9 Esophagitis, unspecified; K76.0 Fatty (change of) liver, not elsewhere classified; K31.84 Gastroparesis; N20.0 Calculus of kidney; K29.70 Gastritis, unspecified, without bleeding; K25.9 Gastric ulcer, unspecified as acute or chronic, without hemorrhage or perforation; K44.9 Diaphragmatic hernia without obstruction or gangrene; R74.0 Nonspecific elevation of levels of transaminase and lactic acid dehydrogenase [LDH]; M85.9 Disorder of bone density and structure, unspecified; L98.8 Other specified disorders of the skin and subcutaneous tissue
CPT/HCPCS: 31720; 36415; 71010-TC; 74000-TC; 80048-TC; 80053-TC; 80076-TC; 82272-TC; 82962-TC; 83690-TC; 83735-TC; 84100-TC; 84484-TC; 85025-TC; 85610-TC; 85730-TC; 86850-TC; 87040-TC; 87081-TC; 88305-TC; 90935-TC; 94002-TC; 94003-TC; 94762-TC; A4216; A4606; A6248; A6402; A6403; A7526; C9113; J1170; J1815; J1885; J1953; J2405; J2765; J3010; J3490; J7030; J7040; J7042; J7050; J8597; P9047; Z7610

== ENCOUNTER 2017-03-23 20:23 | Inpatient (IN) | payer OTHER, MEDICARE ==
[~2017-03-23] VITALS: Ht 142.2 cm; Wt 57.2 kg
--- NOTE | 2017-03-23 20:30 | NUR ---
TO BED 6 A 56 YO MALE PATIENT BIBRA FROM [facility] FOR ABNORMAL LABS 2 HRS ETL DEVELOPER WBC 34.4 HEMAGLOBIN 6.4. UPON ARRIVAL, PATIENT IS ALERT, ORIENTED AND RESPONSIVE. NAD NOTED. VSS. NONDIAPHORETIC. WITH TRACH TO [facility] VENT- RT AT BEDSIDE. NO SOB. PLACED ON CARDIAC AND VS MONITORING. PATIENT NOTED WITH JTUBE, SUPRAPUBIC CATHETER AND JERMAINE DRAIN WITH MINIMAL BLOODLY SECRETIONS ON THE SURGICAL SITE AT THE LEFT UPPER ABDL REGION. COMFORT MEASURES RENDERED. DR JUNIOR AT BEDSIDE TO EVALUATE PATIENT.
[2017-03-23] MEDS ORDERED: PANTOPRAZOLE 40 MG VIAL ONE (20:36)
[2017-03-23 20:39] VITALS: BP 92/67
--- NOTE | 2017-03-23 20:40 | NUR ---
STARTED A SALINE LOCK ON THE RAC G20, BLOOD DRAWN AND SENT TO LAB.
[2017-03-23 21:00] LABS: BASOPHILS # (AUTO) 0.1 /CMM (0.0-0.2); EOSINOPHILS # (AUTO) 0.3 /CMM (0.0-0.7); MEAN CORPUSCULAR HEMOGLOBIN 31 PG (26.0-33.0); MONOCYTES % (AUTO) 10.5 % (2.0-12.0)
[2017-03-23] MEDS ORDERED: PANTOPRAZOLE 40 MG VIAL IV ONE (21:00)
[2017-03-23 21:05] LABS: CALCIUM, SERUM 10.5 mg/dL (8.5-10.1); CARBON DIOXIDE 34 mmol/L (21-32); CHLORIDE 96 mmol/L (98-107); GLUCOSE 101 mg/dL (74-106); POTASSIUM 3.6 mmol/L (3.5-5.1); SODIUM SERUM 141 mmol/L (136-145); UREA NITROGEN, BLOOD 40 mg/dL (7-18)
[2017-03-23 21:08] LABS: BASOPHILS % (AUTO) 0.2 % (0.0-2.0); INR 1.01 (0.87-1.13); LYMPHOCYTES # (AUTO) 1.3 /CMM (0.8-4.8); LYMPHOCYTES % (AUTO) 4.6 % (20.0-44.0); MEAN CORPUSCULAR HGB CONC 32 g/dl (31.0-36.0); MEAN CORPUSCULAR VOLUME 97 fL (80-96); NEUTROPHILS # (AUTO) 24.3 /CMM (1.8-8.9); NEUTROPHILS % (AUTO) 83.7 % (43.0-81.0); PROTHROMBIN TIME 10.5 SECS (9.5-12.7); RDW COEFFICIENT OF VARIATION 17.1 (11.5-15.0); RED BLOOD CELL COUNT(AUTO) 2.08 MIL/uL (4.5-6.0)
[2017-03-23 21:12] LABS: ALANINE AMINOTRANSFERASE 33 U/L (12-78); ALBUMIN 3.2 g/dL (3.4-5.0); ALKALINE PHOSPHATASE 703 U/L (46-116); ASPARTATE AMINOTRANSFERASE 25 U/L (15-37); BILIRUBIN,DIRECT 0.5 mg/dL (0.0-0.2); BILIRUBIN,TOTAL 0.9 mg/dL (0.2-1.0); HEMATOCRIT 20 % (39-51); HEMOGLOBIN 6.5 g/dL (13.5-17.5); TOTAL PROTEIN, SERUM 8.1 g/dL (6.4-8.2)
[2017-03-23 21:14] LABS: TROPONIN I < 0.017 ng/mL (0.00-0.056)
[2017-03-23 21:51] VITALS: BP 118/74
[2017-03-23 21:58] LABS: APPEARANCE,URINE TURBID (CLEAR); COLOR,URINE YELLOW (YELLOW)
[2017-03-23 21:59] LABS: PROTEIN,URINE 2+ mg/dl (NEGATIVE); UGLUCOSE NEGATIVE (NEGATIVE)
[2017-03-23 22:00] LABS: BILIRUBIN,URINE NEGATIVE (NEGATIVE); BLOOD, URINE 1+ Ery/uL (NEGATIVE); KETONES,URINE NEGATIVE (NEGATIVE)
[2017-03-23] MEDS ORDERED: LEVOFLOXACIN 750 MG /D5W 150ML PIGGYBACK IV ONE (22:00)
[2017-03-23] MEDS ORDERED: VANCOMYCIN 1 GM in IV D5W 250 ML IV ONE (22:00)
[2017-03-23 22:01] LABS: LEUKOCYTE ESTERASE ,URINE 2+ (NEGATIVE); NITRITE, URINE NEGATIVE (NEGATIVE); UROBILINOGEN,URINE 0.2 EU/dL (0.2)
--- NOTE | 2017-03-23 22:05 | NUR ---
STARTED PRBC TRANSFUSION AT THIS TIME. VSS. VERIFIED BLOOD WITH DIANNE MICHELLE.
[2017-03-23 22:06] LABS: BACTERIA,URINE Moderate /HPF (None Seen); SQUAMOUS EPITHELIAL CELL,UR Rare /HPF (None Seen); WBC,URINE 51-80 /HPF (0-3)
--- NOTE | 2017-03-23 22:24 | NUR ---
CALLED [facility], SUPPLY PERSON WAS PAGED.
--- NOTE | 2017-03-23 22:31 | NUR ---
REPORT GIVEN TO SIMONE MICHELLE FOR ADMISSION AND CLAUDIA.
[2017-03-23 22:33] LABS: BAND % (MANUAL) 10 % (0.0-5.0); EOSINOPHILS % (MANUAL) 2 % (0-4); LYMPHOCYTES % (MANUAL) 2 % (16-48); MONOCYTES % (MANUAL) 11 % (0-11.0); MYELOCYTES % 1 % (0-0); NEUTROPHILS % (MANUAL) 74 (42-76)
[2017-03-23 22:40] LABS: PLATELET COUNT (AUTO) 399 /CMM (150-450)
[2017-03-23 22:45] VITALS: BP 94/66
--- NOTE | 2017-03-23 22:50 | NUR ---
Endorsed care to Jennifer MICHELLE and that theres levaquin and vanco ivpb orders to be given. No adverse reaction noted from the ongoing blood transfusion.
[2017-03-23] MEDS ORDERED: IPRATROPIUM NEB FS 0.5 MG/2.5 ML AMPUL.NEB NEB PRN (23:30)
[2017-03-24] VITALS: BP 94/66
--- NOTE | 2017-03-24 | NUR ---
RN OPENING NOTE RECEIVE PATIENT FROM ER VIA GURNEY. BLOOD TRANSFUSION WAS STARTED IN THE ER. PATIENT WAS TRANSFERRED WHILE GETTING BLOOD TRANSFUSION VIA MIDLINE, PATIENT IS ALERT/ORIENTED, VITAL SIGNS CHECKED, WITHIN NORMAL LIMITS, NO SOB, SKIN IS SLIGHTLY PALE. WAS ADMITTED WAS DX: ANEMIA. NO RESPIRATORY DISTRESS NOTED, CALL LIGHT WITHIN REACH, SIDE RAILS UP X 2, ALL NEEDS ATTENDED, TURN AND REPOSITION, BED IN THE LOW POSITION
[2017-03-24] MEDS ORDERED: LEVOFLOXACIN 750 MG /D5W 150ML 750 MG in PREMIX 1 EA IV SCH ×2 (00:30→08:07)
[2017-03-24] MEDS ORDERED: VANCOMYCIN 1 GM in IV D5W 250 ML IV ONE (00:30)
[2017-03-24] MEDS ORDERED: VANCOMYCIN 1 GM VIAL ONE (00:42)
[2017-03-24] MEDS ORDERED: LEVOFLOXACIN 750 MG /D5W 150ML 150 ML IV ONE (00:42)
[2017-03-24] MEDS: BLOOD SUGAR DIAGNOSTIC 1 EACH STRIP IN SCH ×5 (00:47→23:44)
[2017-03-24 04:00] VITALS: BP 96/62
[2017-03-24] MEDS: RENAL NOVASOURCE 1,000 ML BOTTLE GT PRN (06:11)
--- NOTE | 2017-03-24 06:56 | NUR ---
NO DISTRESS NOTED DURING THE SHIFT, AFEBRILE, ALL DUE MEDS GIVEN, CALL LIGHT WITHIN REACH, BED IN THE LOW POSITION, SIDE RAILS UP X 2, WILL ENDORSE TO AM NURSE
--- NOTE | 2017-03-24 07:12 | NUR ---
RN INITIAL NOTES: REC'D PT ON BED, NOT IN ANY DISTRESS, A/O X 2, ABLE TO MAKE NEEDS KNOWN. ON MECH VENT VIA TRACH, SATURATING AT 100%. ON TELEMONITOR, SR. HAS 2 IV LINES: R AC G20 & R HAND G20, SL, BOTH FLUSHED PATENT & INTACT W/ NO S/SX OF INFECTION/INFILTRATION NOTED. HAS SUPRAPUBIC CATHETER INTACT. HAS PEG PATENT & INTACT, ON CONT TUBE FEEDING NOVASOURCE X 50 CC/HR INFUSING WELL. HAS JERMAINE DRAIN INTACT DRAINING TO SEROSANGUINEOUS DRAINAGE. HAS ILEOSTOMY BAG ON, NOTED DARK TARRY STOOL. PROVIDED COMFORT & SAFETY MEASURES. BED KEPT LOW & IN LOCKED POS. CALL LIGHT PLACED W/IN REACH. WILL CONTINUE TO MONITOR/ ATTEND PT NEEDS.
[2017-03-24 07:19] LABS: BASOPHILS % (AUTO) 0.1 % (0.0-2.0); EOSINOPHILS # (AUTO) 0.2 /CMM (0.0-0.7); EOSINOPHILS % (AUTO) 1.1 % (0.0-6.0); HEMATOCRIT 24 % (39-51); HEMOGLOBIN 7.7 g/dL (13.5-17.5); LYMPHOCYTES % (AUTO) 4.7 % (20.0-44.0); MEAN CORPUSCULAR HEMOGLOBIN 32 PG (26.0-33.0); MEAN CORPUSCULAR HGB CONC 32 g/dl (31.0-36.0); MEAN CORPUSCULAR VOLUME 98 fL (80-96); MONOCYTES % (AUTO) 14.5 % (2.0-12.0); NEUTROPHILS # (AUTO) 16.4 /CMM (1.8-8.9); NEUTROPHILS % (AUTO) 79.6 % (43.0-81.0); PLATELET COUNT (AUTO) 399 /CMM (150-450); RDW COEFFICIENT OF VARIATION 21.4 (11.5-15.0); RED BLOOD CELL COUNT(AUTO) 2.45 MIL/uL (4.5-6.0); WHITE BLOOD COUNT (AUTO) 20.6 K/uL (4.3-11.0)
[2017-03-24 07:41] LABS: CALCIUM, SERUM 10.8 mg/dL (8.5-10.1); CREATININE 4.3 mg/dL (0.6-1.3); POTASSIUM 4.3 mmol/L (3.5-5.1)
[2017-03-24 08:00] VITALS: BP 96/73
[2017-03-24] MEDS ORDERED: PANT40SU PO (08:35)
[2017-03-24 08:39] LABS: BAND % (MANUAL) 3 % (0.0-5.0); LYMPHOCYTES % (MANUAL) 4 % (16-48); METAMYELOCYTES % 1 % (0-0); MONOCYTES % (MANUAL) 15 % (0-11.0); MYELOCYTES % 1 % (0-0); NEUTROPHILS % (MANUAL) 76 (42-76)
[2017-03-24] MEDS ORDERED: Z GUARD REMEDY 2 OZ OINT TP PRN (09:00)
[2017-03-24] MEDS: Z GUARD REMEDY 2 OZ OINT TP SCH (09:13)
--- NOTE | 2017-03-24 09:45 | NUR ---
WOUND CARE CONSULT: PT PRESENTS WITH IMMOBILITY, JERMAINE DRAIN TO ABDOMEN, ILEOSTOMY, PEG, OLD HEALED PEG SITE, SUPRAPUBIC CATH. BLANCHABLE REDNESS TO BUTTOCKS AND SACRAL AREA (VERY BONY) WITH SURGICAL SCAR. SLIGHT PEELING OF SKIN NOTED TO BUTTOCKS. FIRST STEP MATTRESS ORDERED. ALL SKIN PROTECTION MEASURES DISCUSSED WITH NURSING STAFF. RECOMMEND SURGICAL FOLLOW UP FOR JERMAINE DRAIN. ALL SKIN PROTECTION MEASURES IN PLACE. CURRENT ROBERTO SCORE IS 11. WILL SEE PRN. DESAI IN AGREEMENT WITH PLAN OF CARE. Addendum: 03/24/17 at 0949 by JB SENIOR WNDNU Amended: Links added.
[2017-03-24] MEDS ORDERED: LORAZEPAM 1 MG TABLET GT PRN (11:30)
[2017-03-24] MEDS ORDERED: RENAL NOVASOURCE 1,000 ML BOTTLE GT PRN (11:30)
[2017-03-24] MEDS ORDERED: EPOETIN ALFA (10,000 UNIT) 10,000 UNIT/ML VIAL IV PRN (11:30)
[2017-03-24 12:00] VITALS: BP 86/58
[2017-03-24] MEDS ORDERED: ONDANSETRON 4 MG TAB.RAPDIS GT PRN (12:00)
[2017-03-24] MEDS ORDERED: BLOOD SUGAR DIAGNOSTIC 1 EACH STRIP IN SCH (12:00)
[2017-03-24] MEDS: SEVELAMER CARBONATE 0.8 GM POWD.PACK GT SCH ×2 (12:16→16:27)
[2017-03-24] MEDS: GABAPENTIN 300 MG CAPSULE GT SCH ×2 (12:16→16:26)
[2017-03-24] MEDS: VIT B CMPLX 3/FA/VIT C/BIOTIN 1 TAB TABLET GT SCH (12:17)
[2017-03-24] MEDS: ESCITALOPRAM OXALATE (10 MG) 10 MG TABLET GT SCH (12:17)
[2017-03-24] MEDS: MIDODRINE HCL (5MG) 5 MG TABLET GT SCH ×2 (12:17→16:28)
[2017-03-24] MEDS: INSULIN ASPART HUMALOG/NOVOLOG 100 UNIT/ML CARTRIDGE SQ PRN ×3 (12:18→23:46)
--- NOTE | 2017-03-24 12:46 | NUR ---
RN NOTES: DR. SALDANA DID MED RECON. PT SEEN & EXAMINED BY AMARIS STREETER W/ ORDERS TO COLLECT STOOL FOR OCCULT BLOOD, DONE.
[2017-03-24] MEDS: SUCRALFATE 1 G/10 ML UDC GT SCH ×3 (12:51→20:26)
[2017-03-24] MEDS ORDERED: ALBUTEROL FS 2.5 MG/0.5 ML VIAL.NEB NEB PRN (13:30)
[2017-03-24] MEDS ORDERED: EPOETIN ALFA (10,000 UNIT) 10,000 UNIT/ML VIAL IV ONE (15:00)
[2017-03-24 16:00] VITALS: BP_SYST 86; BP_SYST 92; BP_DIAS 55; BP_DIAS 58
[2017-03-24] MEDS: LEVETIRACETAM SOL (5 ML) 100 MG/ML UDC GT SCH (16:26)
[2017-03-24] MEDS: PROSOURCE / PROSTAT (PYXIS) 30 ML UDC GT SCH (16:27)
--- NOTE | 2017-03-24 17:58 | NUR ---
RN NOTES: SYL GLEZ MADE AWARE OF POSITIVE STOOL OB AND ALSO ILEOTOMY OUTPUT 850 CC. AWAITING RESPONSE.
--- NOTE | 2017-03-24 18:41 | NUR ---
RN CLOSING NOTES: NO ACUTE CHANGES NOTED W/IN SHIFT. PT TOLERATED MECH VENT VIA TRACH, SATURATING AT 100%. ON TELEMONITOR, STILL SR. 2 IV LINES: R AC G20 & R HAND G20, SL, KEPT PATENT & INTACT W/ NO S/SX OF INFECTION/INFILTRATION NOTED. SUPRAPUBIC CATHETER KEPT PATENT & INTACT. PEG ALSO KEPT PATENT & INTACT, STILL ON CONT TUBE FEEDING NOVASOURCE X 50 CC/HR TOLERATED WELL, NO RESIDUAL W/IN SHIFT. JERMAINE DRAIN KEPT IN PLACE STILL DRAINING W/ MINIMAL SEROSANGUINEOUS DRAINAGE. ILEOSTOMY BAG KEPT ON. KEPT WELL RESTED. NEEDS ATTENDED. SECRETIONS SUCTIONED. BED KEPT LOW & IN LOCKED POS. CALL LIGHT PLACED W/IN REACH. WILL ENDORSE TO PM RN FOR CLAUDIA.
--- NOTE | 2017-03-24 19:20 | NUR ---
WATCHGUARD OPENING NOTES. RECEIVED PATIENT AND REPORT FROM ELÍAS SHIFT. PATIENT IS ALERT AND ORIENTED X 3. NO SIGNS OF DISTRESS. ON GT FEEDING WITH HOB ELEVATED X 30 DEGREES. ON MECHANICAL VENTILATOR WITH CURRENT SETTINGS. WITH VILLA CATH INTACT.
[2017-03-24 20:00] VITALS: BP 84/58
[2017-03-24] MEDS: MEROPENEM 500 MG in IV NS 0.9% 50 ML IV SCH (20:24)
[2017-03-24] MEDS: METOCLOPRAMIDE HCL 10 MG/10 ML UDC GT SCH (20:25)
[2017-03-24] MEDS: CHLORHEXIDINE GLUCONATE 15 ML UDC MM SCH (20:25)
[2017-03-24] MEDS ORDERED: PANTOPRAZOLE 40 MG/PACK PACK PO SCH (21:00)
[2017-03-25] VITALS: BP 93/54
--- NOTE | 2017-03-25 00:20 | NUR ---
TRANSFER CARE NOTES GAVE PATIENT CARE AND REPORT TO BRIDGER MICHELLE.
[2017-03-25 04:00] VITALS: BP 86/47
[2017-03-25] MEDS: RENAL NOVASOURCE 1,000 ML BOTTLE GT PRN (05:33)
[2017-03-25] MEDS: BLOOD SUGAR DIAGNOSTIC 1 EACH STRIP IN SCH ×4 (05:33→23:07)
[2017-03-25 07:24] LABS: BASOPHILS % (AUTO) 0.1 % (0.0-2.0); EOSINOPHILS # (AUTO) 0.3 /CMM (0.0-0.7); EOSINOPHILS % (AUTO) 1.5 % (0.0-6.0); HEMATOCRIT 23 % (39-51); HEMOGLOBIN 7.6 g/dL (13.5-17.5); LYMPHOCYTES # (AUTO) 1.1 /CMM (0.8-4.8); LYMPHOCYTES % (AUTO) 6.4 % (20.0-44.0); MEAN CORPUSCULAR HEMOGLOBIN 32 PG (26.0-33.0); MEAN CORPUSCULAR HGB CONC 32 g/dl (31.0-36.0); MEAN CORPUSCULAR VOLUME 99 fL (80-96); MONOCYTES % (AUTO) 17.1 % (2.0-12.0); NEUTROPHILS # (AUTO) 13.1 /CMM (1.8-8.9); NEUTROPHILS % (AUTO) 74.9 % (43.0-81.0); PLATELET COUNT (AUTO) 536 /CMM (150-450); RDW COEFFICIENT OF VARIATION 20.6 (11.5-15.0); RED BLOOD CELL COUNT(AUTO) 2.36 MIL/uL (4.5-6.0); WHITE BLOOD COUNT (AUTO) 17.4 K/uL (4.3-11.0)
--- NOTE | 2017-03-25 07:35 | NUR ---
RN NOTES RECEIVED PT ON BED, VENT/ TRACH DEPENDENT , NO DISTRESS NOTED, TOLERATING CURRENT VENT SETTING WELL, ON TELE SR HR IN 90'S , NOVASOURCE AT 50CC/HR RUNNING VIA G- TUBE , NO RESIDUAL NOTED , R AC AND R HAND IV SITE G 20 CDI, SR UP x3, CALL LIGHT WITHIN EASY REACH, WILL CONTINUE TO MONITOR .
[2017-03-25 07:37] LABS: CALCIUM, SERUM 11.1 mg/dL (8.5-10.1); CREATININE 5.5 mg/dL (0.6-1.3); MAGNESIUM 2.8 mg/dL (1.8-2.4); PHOSPHORUS 1.6 mg/dL (2.5-4.9); POTASSIUM 3.6 mmol/L (3.5-5.1)
[2017-03-25 08:00] VITALS: BP 88/56
[2017-03-25] MEDS: LEVETIRACETAM SOL (5 ML) 100 MG/ML UDC GT SCH ×2 (08:09→16:17)
[2017-03-25] MEDS: METOCLOPRAMIDE HCL 10 MG/10 ML UDC GT SCH ×2 (08:09→20:16)
[2017-03-25] MEDS: CHLORHEXIDINE GLUCONATE 15 ML UDC MM SCH ×2 (08:10→20:16)
[2017-03-25] MEDS: VIT B CMPLX 3/FA/VIT C/BIOTIN 1 TAB TABLET GT SCH (08:10)
[2017-03-25] MEDS: ESCITALOPRAM OXALATE (10 MG) 10 MG TABLET GT SCH (08:10)
[2017-03-25] MEDS: MIDODRINE HCL (5MG) 5 MG TABLET GT SCH ×3 (08:10→16:19)
[2017-03-25] MEDS: SUCRALFATE 1 G/10 ML UDC GT SCH ×4 (08:10→21:31)
[2017-03-25] MEDS: MEROPENEM 500 MG in IV NS 0.9% 50 ML IV SCH ×2 (08:11→20:16)
[2017-03-25] MEDS: GABAPENTIN 300 MG CAPSULE GT SCH ×3 (08:11→16:17)
[2017-03-25] MEDS: SEVELAMER CARBONATE 0.8 GM POWD.PACK GT SCH ×3 (08:11→16:17)
[2017-03-25] MEDS: PROSOURCE / PROSTAT (PYXIS) 30 ML UDC GT SCH ×2 (08:12→16:19)
[2017-03-25] MEDS: Z GUARD REMEDY 2 OZ OINT TP SCH (08:13)
--- NOTE | 2017-03-25 08:15 | NUR ---
RN NOTES PT VOMITED SMALL AMOUNT OF STOMACH CONTENT . TF PLACED ON HOLD , CONTINUE TO MONITOR . VITALY LANGLEY MD NOTIFIED .
[2017-03-25] MEDS: AMLODIPINE BESYLATE 5 MG TABLET GT SCH (08:16)
[2017-03-25 09:48] LABS: BAND % (MANUAL) 2 % (0.0-5.0); EOSINOPHILS % (MANUAL) 1 % (0-4); LYMPHOCYTES % (MANUAL) 3 % (16-48); MONOCYTES % (MANUAL) 11 % (0-11.0); NEUTROPHILS % (MANUAL) 83 (42-76)
--- NOTE | 2017-03-25 11:00 | NUR ---
RN NOTES TF RESTARTED AT 50CC/HR . CONTINUE TO MONITOR .
[2017-03-25] MEDS ORDERED: EPOETIN ALFA (10,000 UNIT) 10,000 UNIT/ML VIAL IV ONE (12:00)
[2017-03-25 13:00] VITALS: BP 75/48
[2017-03-25] MEDS: ACETAMINOPHEN 325 MG TABLET PO PRN (13:19)
--- NOTE | 2017-03-25 13:20 | NUR ---
RN NOTES T=102.5 , HR =130'S, BP 75/48. BG 68 . PT ALERT AND TALKATIVE , DR SALDANA NOTIFIED, NEW ORDER RECEIVED , CONTINUE TO MONITOR PT CLOSELY
[2017-03-25] MEDS ORDERED: IV NS 0.9% 500 ML IV ONE (13:30)
[2017-03-25] MEDS ORDERED: NEUTRA PHOS 1 POWD.PACKET GT ONE (14:00)
--- NOTE | 2017-03-25 15:00 | NUR ---
RN NOTES BP 88/48, HR 103,T 99.8 ORALLY , CONTINUE TO MONITOR .
[2017-03-25 16:00] VITALS: BP 88/48
--- NOTE | 2017-03-25 18:40 | NUR ---
RN NOTES T=99.0, RESPIRATION EVEN AND UNLABORED, TRACH SUCTIONING DONE , TOLERATING TF WELL , SR UP x3, CALL LIGHT WITHIN EASY REACH, WILL ENDORSE TO GUEST SERVICE SUPERVISOR NURSE FOR CLAUDIA.
--- NOTE | 2017-03-25 19:30 | NUR ---
RN/TELE NOTES: RECEIVED PT. IN BED A/O X 1-2. VENT/ TRACH DEPENDENT AND TOLERATING SETTINGS WELL. NO FACIAL GRIMACES OR MOANING NOTED. NOT IN ANY RESPIRATORY DISTRESS. ON TELE ST 103 HR. NOVASOURCE AT 50CC/HR RUNNING VIA G- TUBE W/ NO RESIDUAL NOTED AT THIS TIME. TOLERATING WELL. R AC AND R HAND IV SITE G 20 CDI W/ NO S/S OF INFECTION/INFILTRATION NOTED. HAS A COLOSTOMY AND JERMAINE DRAIN INTACT. HAS SUPRAPUBIC CATH INPLACE VIA GRAVITY. CALL LIGHT WITHIN REACH. WILL CONTINUE TO MONITOR.
[2017-03-25 20:00] VITALS: BP 92/54
[2017-03-25] MEDS: METRONIDAZOLE 500 MG TABLET PO SCH (20:16)
[2017-03-25] MEDS ORDERED: LEVOFLOXACIN 750 MG /D5W 150ML 750 MG in PREMIX 1 EA IV SCH (23:00)
[2017-03-26] VITALS (27 sets, daily range): BP systolic 52–149; BP diastolic 30–88
--- NOTE | 2017-03-26 03:30 | NUR ---
RN/TELE NOTES: PT. IS ON NPO STATUS DUE TO EGD PROCEDURE. PT. HAD EMESIS X 2 GREENISH COLOR W/ MUCUS. CALLED DR. SAXENA FEE CLERK W/ ORDERS FOR ZOFRAN 4MG IVP Q 6HRS PRN .PRN GIVEN AT 0338. WILL CONTINUE TO MONITOR. CALLED SISTER BERRY KYLE @ 4 AM @ [phone] OVER TELEPHONE FOR CONSENT FOR EGD. CHARGE NURSE STARLA YO.
[2017-03-26] MEDS ORDERED: ONDANSETRON HCL/PF 4 MG/2 ML VIAL ONE (03:37)
[2017-03-26] MEDS: ONDANSETRON HCL/PF 4 MG/2 ML VIAL IV PRN ×2 (03:38→09:14)
[2017-03-26] MEDS: METRONIDAZOLE 500 MG TABLET PO SCH ×3 (05:00→20:37)
[2017-03-26] MEDS: BLOOD SUGAR DIAGNOSTIC 1 EACH STRIP IN SCH ×3 (05:13→17:50)
--- NOTE | 2017-03-26 07:15 | NUR ---
RN/TELE NOTES: PT. IN BED SLEEPING W/ RESPIRATIONS EVEN AND UNLABORED. TOLERATING VENT SETTING WELL. ON NPO STATUS MAINTAINED FOR EGD. REPORT GIVEN TO NEXT SHIFT NURSE FOR CONTINUE OF CARE.
[2017-03-26] MEDS: SUCRALFATE 1 G/10 ML UDC GT SCH ×4 (07:30→20:37)
--- NOTE | 2017-03-26 07:51 | NUR ---
rn notes RECEIVED PT AWAKE AND VERBALLY RESPONSIVE WITH NAD. JERMAINE IN PLACE WITH NO OUTPUT NOTED. COLOSTOMY NO OUTPUT, VILLA DRAINING THRU GRAVITY . GT REMAINS CLAMPED. ALL NEEDS ATTENDED AND POSITIONED FOR COMFORT.SINUS RHYTHM ON THE MONITOR. NO BLEEDING AT THIS TIME.
[2017-03-26] MEDS: METOCLOPRAMIDE HCL 10 MG/10 ML UDC GT SCH ×2 (08:27→20:36)
[2017-03-26] MEDS: PROSOURCE / PROSTAT (PYXIS) 30 ML UDC GT SCH ×2 (08:27→17:50)
[2017-03-26] MEDS: ESCITALOPRAM OXALATE (10 MG) 10 MG TABLET GT SCH (08:27)
[2017-03-26] MEDS: VIT B CMPLX 3/FA/VIT C/BIOTIN 1 TAB TABLET GT SCH (08:27)
[2017-03-26] MEDS: GABAPENTIN 300 MG CAPSULE GT SCH ×3 (08:27→17:49)
[2017-03-26] MEDS: SEVELAMER CARBONATE 0.8 GM POWD.PACK GT SCH ×3 (08:27→17:00)
[2017-03-26 08:51] LABS: CALCIUM, SERUM 10.9 mg/dL (8.5-10.1); CREATININE 4.5 mg/dL (0.6-1.3); POTASSIUM 3.9 mmol/L (3.5-5.1)
[2017-03-26 08:56] LABS: PHOSPHORUS 0.9 mg/dL (2.5-4.9)
[2017-03-26] MEDS: LEVETIRACETAM SOL (5 ML) 100 MG/ML UDC GT SCH ×2 (09:00→17:49)
[2017-03-26] MEDS: MIDODRINE HCL (5MG) 5 MG TABLET GT SCH ×3 (09:00→17:49)
[2017-03-26] MEDS: AMLODIPINE BESYLATE 5 MG TABLET GT SCH (09:00)
[2017-03-26] MEDS: Z GUARD REMEDY 2 OZ OINT TP SCH (09:05)
[2017-03-26] MEDS: MEROPENEM 500 MG in IV NS 0.9% 50 ML IV SCH ×2 (09:07→20:36)
[2017-03-26] MEDS: CHLORHEXIDINE GLUCONATE 15 ML UDC MM SCH ×2 (09:12→20:36)
--- NOTE | 2017-03-26 10:30 | NUR ---
RN NOTES NOTIFIED dR beata Garza WITH PTS SBP ON THE LOW 80S, PT ASYMPTOMATIC (PT NPO WITH GT CLAMPED AND PROAMATINE IS ORDERED PO). MD WITH ORDERS; STARTED IVF DIRECTED
[2017-03-26] MEDS: LORAZEPAM INJ 2 MG/ML VIAL IV PRN (10:53)
[2017-03-26] MEDS ORDERED: IV D5/ 0.9% NACL 1,000 ML IV ONE (11:00)
--- NOTE | 2017-03-26 12:39 | NUR ---
RN NOTES PT SEEN AND ASSESSED BY DR Whitney SALDANA, INFORMED MD RE BP LEVELS
[2017-03-26] MEDS ORDERED: NEUTRA PHOS 1 POWD.PACKET PO ONE (13:00)
[2017-03-26 15:09] LABS: EOSINOPHILS # (AUTO) 0.1 /CMM (0.0-0.7); EOSINOPHILS % (AUTO) 0.1 % (0.0-6.0); HEMATOCRIT 24 % (39-51); HEMOGLOBIN 7.3 g/dL (13.5-17.5); LYMPHOCYTES # (AUTO) 2.7 /CMM (0.8-4.8); LYMPHOCYTES % (AUTO) 3.8 % (20.0-44.0); MEAN CORPUSCULAR HEMOGLOBIN 29 PG (26.0-33.0); MEAN CORPUSCULAR HGB CONC 30 g/dl (31.0-36.0); MEAN CORPUSCULAR VOLUME 98 fL (80-96); MONOCYTES # (AUTO) 1.8 /CMM (0.1-1.30); MONOCYTES % (AUTO) 2.5 % (2.0-12.0); NEUTROPHILS # (AUTO) 67.5 /CMM (1.8-8.9); NEUTROPHILS % (AUTO) 93.6 % (43.0-81.0); PLATELET COUNT (AUTO) 591 /CMM (150-450); RDW COEFFICIENT OF VARIATION 21.1 (11.5-15.0); RED BLOOD CELL COUNT(AUTO) 2.47 MIL/uL (4.5-6.0)
[2017-03-26 15:21] LABS: WHITE BLOOD COUNT (AUTO) 72.2 K/uL (4.3-11.0)
--- NOTE | 2017-03-26 15:43 | NUR ---
RN NOTES RECEIVED WBC RESULT 72.2 REPORT FROM ROSAMARIA/LAB; PT AWAKE AND VERBAL; FEBRILE AND SINUS TACH WHEN VITALS CHECKED, NOTED WITH HYPOTENSION- VITALS DOCUMENTED AND RELAYED TO DR KRIS SALDANA. REMAINS ON VENT ; NAD . DR SALDANA WITH ORDERS ; WILL MOVE TO ICU AND EDUCATIONAL INSTITUTION CURATOR MARTHA AWARE. WILL MONITOR
[2017-03-26 15:56] LABS: BAND % (MANUAL) 49 % (0.0-5.0); LYMPHOCYTES % (MANUAL) 3 % (16-48); MONOCYTES % (MANUAL) 2 % (0-11.0); NEUTROPHILS % (MANUAL) 46 (42-76)
--- NOTE | 2017-03-26 16:10 | NUR ---
RN NOTES PT AWAKE LATEST BP=72/44, VERBAL AND DENIES PAIN; NAD. TRANSFERRED TO ICU PER PROTOCOL WITH RT AND RN . ENDORSED TO CHEMICAL INSPECTORVIVIANA PHELPS WITH REPORT GIVEN AT BEDSIDE
--- NOTE | 2017-03-26 16:22 | NUR ---
SOUND PRINTER NOTE RCVD PT AWAKE AND ALERT, SHOWING NO S/O DISTRESS, ST ON TELE. HYPOTENSIVE 61/[address] Jasper SALDANA PAGED. WAITING TO HEAR BACK FROM HIM. AT THIS TIME TOLERATING ORDERED VENT SETTINGS WELL. G-TUBE PLACEMENT VERIFIED BY AUSCULTATION/ASPIRATION. NO RESIDUAL OBTAINED. ILEOSTOMY DRAINING BROWN LIQUID STOOL. SUPRAPUBIC CATH IN PLACE, BROWN CLOUDY URINE OBSERVED IN BAG. IV SITES C/D/I/PATENT. NO S/O INFILTRATION/PHLEBITIS OBSERVED UPON FLUSHING. PER REPORT JERMAINE DRAIN DCd TODAY AND EGD CANCELLED PER GI. HGB STABLE AT THIS TIME. WILL CONTINUE TO MONITOR PT FOR SAFETY AND COMFORT. CALL LIGHT WITHIN REACH. BED IN LOW AND LOCKED POSITION.
[2017-03-26] MEDS ORDERED: FEE PK DOSING 1 MIN EA MC ONE (16:32)
--- NOTE | 2017-03-26 16:50 | NUR ---
HERB DIGGER NOTE DR. SALDANA COMMUNICATED BACK WITH SETH HURTADO. ORDERED NS BOLUS AND TO START PT ON PRESSORS. WILL F/U WITH PHARMACY.
[2017-03-26] MEDS ORDERED: VANCOMYCIN 1 GM in IV D5W 250 ML IV ONE (17:00)
[2017-03-26] MEDS ORDERED: IV NS 0.9% 1,000 ML IV PRN (17:00)
[2017-03-26 17:16] LABS: APPEARANCE,URINE CLOUDY (CLEAR); BILIRUBIN,URINE NEGATIVE (NEGATIVE); BLOOD, URINE 2 Ery/uL (NEGATIVE); COLOR,URINE YELLOW (YELLOW); PH,URINE 6.5 (5.0-8.0); PROTEIN,URINE 2 mg/dl (NEGATIVE); UGLUCOSE NEGATIVE (NEGATIVE)
[2017-03-26 17:17] LABS: KETONES,URINE NEGATIVE (NEGATIVE); LEUKOCYTE ESTERASE ,URINE 2 (NEGATIVE); NITRITE, URINE NEGATIVE (NEGATIVE); UROBILINOGEN,URINE 0.2 EU/dL (0.2)
[2017-03-26] MEDS: NOREPINEPHRINE 16 MG in IV D5W 500 ML IV PRN (17:28)
[2017-03-26 17:30] LABS: BACTERIA,URINE Few /HPF (None Seen); SQUAMOUS EPITHELIAL CELL,UR Few /HPF (None Seen); WBC,URINE 81-100 /HPF (0-3)
[2017-03-26] MEDS ORDERED: DOSE PER PHARMACY MICAFUNGIN 1 EA XX PRN (17:30)
[2017-03-26] MEDS: MICAFUNGIN SODIUM 100 MG in IV NS 0.9% 100 ML IV SCH (18:11)
--- NOTE | 2017-03-26 19:28 | NUR ---
PHYSICIAN NON INVASIVE CARDIOLOGIST NOTE BP MANAGED WITH LEVO ORDERED BY DR. SALDANA. PT'S VITAL SIGNS STABLE AT THIS TIME. PT'S CARE ENDORSED TO TRACK LAYING MACHINE OPERATOR RN FOR CONTINUITY OF CARE. BED IN LOW AND LOCKED POSITION. CALL LIGHT WITHIN REACH.
--- NOTE | 2017-03-26 21:00 | NUR ---
REC'D PT. TRACH TO VENT W/SETTINGS AT AC-16, TV-500 & 40%-NO PEEP. PT. NEEDS MOD. SXING. AFEBRILE. PT.IS IN ISOLATION FOR HX/MRSA. PT.IS A PARAPHLEGIC. BLE'S ARE ATROPHIED. PT. IS AWAITING PICC LINE PLACEMENT. CONSENT IS ALREADY SIGNED & PLACED IN CHART. PT. DOES HAVE 2 PIVS, HOWEVER-LEVOPHED GTT. IS INFUSING AT 4 MCG/MIN. INTO THE RAC. ALL PORTS ARE PATENT TO FLUSH. PT.IS PEGGED/NPO.AT PRESENT. PT. MOVES BUE'S WELL. A&O X 2-3. PT. CAN BECOME ANXIOUS EASILY. PT.IS DUE FOR DIALYSIS WEDNESDAY. +ILEOSTOMY & SUPRAPUBIC CATH TO GRAVITY. POOR UOP. CONT.POC.
[2017-03-27] VITALS (100 sets, daily range): BP systolic 71–155; BP diastolic 34–90
[2017-03-27] MEDS: ZOLPIDEM TARTRATE 5 MG TABLET GT PRN ×2 (00:59→20:15)
[2017-03-27] MEDS: INSULIN ASPART HUMALOG/NOVOLOG 100 UNIT/ML CARTRIDGE SQ PRN ×2 (01:00→06:40)
--- NOTE | 2017-03-27 01:00 | NUR ---
DITTO MACHINE OPERATOR - PT. WAS ADM. AMBIEN 5MG/GT. PER PT. REQUEST. PT. WAS REPOSITIONED & IS ALREADY RESTING W/EYES CLOSED. [place] BLOOD SUGAR = #133. PT.IS ON NOVOLOG & NO INSULIN NEEDED RE: S/S LEVOPHED AT 3 MCG/MIN. CONT. POC.
[2017-03-27] MEDS: METRONIDAZOLE 500 MG TABLET PO SCH ×3 (05:00→20:15)
--- NOTE | 2017-03-27 05:00 | NUR ---
FORCE DISPATCHER - PT. ADMINISTERED COMPLETE BEDBATH W/ORAL,VENT,PEG,CARLOS EDUARDO & SKIN/WOUND CARE GIVEN. NO S/S OF DISTRESS. PT. SLEPT REALLY WELL AFTER ADM. OF RUPALI. CONT.POC.
[2017-03-27 05:13] LABS: HEMATOCRIT 23 % (39-51); LYMPHOCYTES # (AUTO) 1.2 /CMM (0.8-4.8); LYMPHOCYTES % (AUTO) 2.4 % (20.0-44.0); MEAN CORPUSCULAR HEMOGLOBIN 30 PG (26.0-33.0); MEAN CORPUSCULAR HGB CONC 31 g/dl (31.0-36.0); MEAN CORPUSCULAR VOLUME 97 fL (80-96); MONOCYTES # (AUTO) 4.1 /CMM (0.1-1.30); NEUTROPHILS # (AUTO) 45.7 /CMM (1.8-8.9); NEUTROPHILS % (AUTO) 89.6 % (43.0-81.0); PLATELET COUNT (AUTO) 660 /CMM (150-450); RDW COEFFICIENT OF VARIATION 20.4 (11.5-15.0); RED BLOOD CELL COUNT(AUTO) 2.33 MIL/uL (4.5-6.0)
[2017-03-27 05:26] LABS: HEMOGLOBIN 6.9 g/dL (13.5-17.5)
[2017-03-27 05:27] LABS: CALCIUM, SERUM 10.3 mg/dL (8.5-10.1); CREATININE 5.1 mg/dL (0.6-1.3); MAGNESIUM 2.2 mg/dL (1.8-2.4); PHOSPHORUS 1.4 mg/dL (2.5-4.9); POTASSIUM 3.6 mmol/L (3.5-5.1)
[2017-03-27] MEDS: BLOOD SUGAR DIAGNOSTIC 1 EACH STRIP IN SCH ×4 (06:00→17:16)
[2017-03-27 06:38] LABS: BAND % (MANUAL) 35 % (0.0-5.0); LYMPHOCYTES % (MANUAL) 3 % (16-48); MONOCYTES % (MANUAL) 1 % (0-11.0); MYELOCYTES % 2 % (0-0); NEUTROPHILS % (MANUAL) 57 (42-76); PROMYELOCYTES % 2 % (0-0)
--- NOTE | 2017-03-27 06:50 | NUR ---
TOWEL FOLDER - ABNORMAL LABS WERE PHONED AT 6AM TO DRY CLEANING CHECKER - ED. WHO ENDORSED TO ME. FIRST PHONE CALL WAS MADE TO DR. BHARDWAJ AT 06:15 AM. 2ND PHONE CALL WAS MADE AT 06:45 AM. DRY CLEANING CHECKER - ED AWARE. ED ENDORSED TO DAYSHIFT DRY CLEANING CHECKER - MICKEY. I ENDORSED TO DAYSHIFT PRIMARY RN. WBC AT 51 (DECREASED FROM 72.2. H&H=6.9/22.5 & PLTS AT 660. ANION GAP AT 15. WILL GO THRU CHAIN OF COMMAND. CONT.POC. LEVOPHED GTT. IS NOW AT 3 MCG/MIN.
--- NOTE | 2017-03-27 07:15 | NUR ---
CASHIER COURTESY BOOTH - DR. DAVIS HERE TO ASSESS PT. IS ASSOCIATED W/'S GROUP. MADE AWARE OF AM LABS & STATUS UPDATE. ALSO, VANCO TROUGH IS HIGH AT #33. REPORT ENDORSED TO AMAYA MICHELLE. CONT. POC.
--- NOTE | 2017-03-27 07:36 | NUR ---
ROLLER MILL TENDER RECEIVED PATIENT FROM THE PREVIOUS SHIFT. PATIENT IS IN BED. RESTING COMFORTABLY. PATIENT IS ON LOW DOSE LEVOPHED AT THIS TIME. ALERT AND ORIENTED X 4. TRACH CARE PROVIDED. GT FEED ON HOLD. VENT SETTINGS REVIEWED AND VERIFIED. TURNED AND REPOSITIONED FOR COMFORT AND WOUND PREVENTION. WILL CONTINUE TO MONITOR AND PROVIDE CARE.
[2017-03-27] MEDS: AMLODIPINE BESYLATE 5 MG TABLET GT SCH (08:13)
[2017-03-27] MEDS: LEVETIRACETAM SOL (5 ML) 100 MG/ML UDC GT SCH ×2 (08:33→17:18)
[2017-03-27] MEDS: VIT B CMPLX 3/FA/VIT C/BIOTIN 1 TAB TABLET GT SCH (08:33)
[2017-03-27] MEDS: PROSOURCE / PROSTAT (PYXIS) 30 ML UDC GT SCH ×2 (08:33→17:20)
[2017-03-27] MEDS: ESCITALOPRAM OXALATE (10 MG) 10 MG TABLET GT SCH (08:33)
[2017-03-27] MEDS: MIDODRINE HCL (5MG) 5 MG TABLET GT SCH ×3 (08:33→17:18)
[2017-03-27] MEDS: METOCLOPRAMIDE HCL 10 MG/10 ML UDC GT SCH ×2 (08:36→20:16)
[2017-03-27] MEDS: CHLORHEXIDINE GLUCONATE 15 ML UDC MM SCH ×2 (08:36→20:16)
[2017-03-27] MEDS: SEVELAMER CARBONATE 0.8 GM POWD.PACK GT SCH ×3 (08:36→17:18)
[2017-03-27] MEDS: Z GUARD REMEDY 2 OZ OINT TP SCH (08:37)
[2017-03-27] MEDS: GABAPENTIN 300 MG CAPSULE GT SCH ×3 (08:39→17:18)
[2017-03-27] MEDS: SUCRALFATE 1 G/10 ML UDC GT SCH ×4 (08:39→22:11)
[2017-03-27] MEDS: MEROPENEM 500 MG in IV NS 0.9% 50 ML IV SCH (08:40)
[2017-03-27] MEDS ORDERED: Sodium Phosphate 7.5 MMOL in IV D5W 100 ML IV ONE (09:00)
[2017-03-27] MEDS: MICAFUNGIN SODIUM 100 MG in IV NS 0.9% 100 ML IV SCH (17:19)
[2017-03-27] MEDS: NOREPINEPHRINE 16 MG in IV D5W 500 ML IV PRN (18:29)
[2017-03-27] MEDS ORDERED: AMIKACIN 400 MG in IV D5W 100 ML IV ONE (18:30)
[2017-03-27] MEDS ORDERED: DOSING PER PHARMACY-AMIKACI IV XX PRN (18:30)
[2017-03-27] MEDS ORDERED: FEE PK DOSING 1 MIN EA MC ONE (18:33)
[2017-03-27] MEDS ORDERED: AMIKACIN 400 MG in IV D5W 100 ML IV PRN (19:00)
--- NOTE | 2017-03-27 21:00 | NUR ---
AVIONICS MANAGER = REC'D PT. IN ISOLATION/HX OF MRSA. PT. IS YELLING FOR AMBIEN. AMBIEN 5MG/GT ADM. FOR INSOMNIA. VSS. LEVOPHED GTT. IS AT 2 MCG/MIN. RN TITRATING GTT. TO ONE MCG/MIN. AFEBRILE. PT.IS A PARAPHLEGIC & CAN USE BUE'S WELL/GROSS MOTOR SKILLS. BLE'S ARE ATROPHIED. PT.IS TOLERATING ICE CHIPS. PEG IS CLAMPED. TF ON HOLD AT PRESENT. PT. HAS ILEOSTOMY INTACT. SUPRAPUBIC CATH TO GRAVITY W/VERY LITTLE UOP. DIALYSIS WILL BE DONE TOMORROW. PT.HAS A NEW LUE MIDLINE W/ALL PORTS PATENT TO FLUSH. CONT.POC.
[2017-03-28] VITALS (51 sets, daily range): BP systolic 79–167; BP diastolic 54–95
--- NOTE | 2017-03-28 00:30 | NUR ---
TIME STUDY ANALYST - LEVOPHED GTT. STOPPED/ON HOLD, DUE TO SBP'S IN THE 120-130'S. PT.HAS BEEN RESTING W/EYES CLOSED. EASILY AROUSABLE. NO S/S OF DISTRESS/DISCOMFORT. NO UOP VIA SUPRAPUBIC CATH. AFEBRILE. VSS. CONT. POC.
[2017-03-28] MEDS: INSULIN ASPART HUMALOG/NOVOLOG 100 UNIT/ML CARTRIDGE SQ PRN ×2 (00:44→05:46)
[2017-03-28 04:46] LABS: EOSINOPHILS # (AUTO) 0.3 /CMM (0.0-0.7); HEMATOCRIT 25 % (39-51); HEMOGLOBIN 7.8 g/dL (13.5-17.5); LYMPHOCYTES % (AUTO) 3.4 % (20.0-44.0); MEAN CORPUSCULAR HEMOGLOBIN 29 PG (26.0-33.0); MEAN CORPUSCULAR HGB CONC 31 g/dl (31.0-36.0); MEAN CORPUSCULAR VOLUME 93 fL (80-96); MONOCYTES # (AUTO) 2.8 /CMM (0.1-1.30); MONOCYTES % (AUTO) 9.8 % (2.0-12.0); NEUTROPHILS # (AUTO) 24.8 /CMM (1.8-8.9); NEUTROPHILS % (AUTO) 85.8 % (43.0-81.0); PLATELET COUNT (AUTO) 661 /CMM (150-450); RDW COEFFICIENT OF VARIATION 21.8 (11.5-15.0)
[2017-03-28 04:57] LABS: CALCIUM, SERUM 10.4 mg/dL (8.5-10.1); POTASSIUM 3.6 mmol/L (3.5-5.1)
[2017-03-28 05:29] LABS: EOSINOPHILS % (MANUAL) 2 % (0-4); LYMPHOCYTES % (MANUAL) 7 % (16-48); MONOCYTES % (MANUAL) 8 % (0-11.0); NEUTROPHILS % (MANUAL) 83 (42-76)
[2017-03-28] MEDS: METRONIDAZOLE 500 MG TABLET PO SCH ×3 (05:45→20:23)
[2017-03-28] MEDS: BLOOD SUGAR DIAGNOSTIC 1 EACH STRIP IN SCH ×5 (05:46→23:30)
--- NOTE | 2017-03-28 06:31 | NUR ---
[employer] SERVICES COORDINATOR - PT. WAS ADM. A COMPLETE BEDBATH AT 4AM W/ORAL,TRACH,PEG,SPB CATH,ILEOSTOMY AND SKIN/WOUND CARE GIVEN. PT'S ACCU CHECK AT 6AM WAS #74. NO COVERAGE ADM. TF REMAINS ON HOLD. LEVOPHED GTT. HAS BEEN OFF SINCE 00:30 AM. NO CRITICAL LABS PHONED THIS AM. H&H IS 7.8 /25 & WBC IS AT 29.0=TRENDING DOWNWARD. PT.IS SCHEDULED TO HAVE DIALYSIS TODAY. CONT. POC.
--- NOTE | 2017-03-28 07:43 | NUR ---
LABS R/V'D WITHOUT REPORTABLE VALUES. WILL CHECK WITH DR POWELL ABOUT WHEN TO RESUME TUBE FDG. HAD ONE UNIT RPCS LAST PM WITH HGB NOW 7.6. BM IN COLOSTOMY REMAINS DARK BROWN/BLACK. OFF OF PRESSORS SINCE [place]
[2017-03-28] MEDS: SUCRALFATE 1 G/10 ML UDC GT SCH ×4 (08:23→21:06)
[2017-03-28] MEDS: CHLORHEXIDINE GLUCONATE 15 ML UDC MM SCH ×2 (08:44→20:23)
[2017-03-28] MEDS: SEVELAMER CARBONATE 0.8 GM POWD.PACK GT SCH ×3 (08:45→16:52)
[2017-03-28] MEDS: MIDODRINE HCL (5MG) 5 MG TABLET GT SCH ×3 (08:45→16:53)
[2017-03-28] MEDS: VIT B CMPLX 3/FA/VIT C/BIOTIN 1 TAB TABLET GT SCH (08:45)
[2017-03-28] MEDS: AMLODIPINE BESYLATE 5 MG TABLET GT SCH (08:46)
[2017-03-28] MEDS: METOCLOPRAMIDE HCL 10 MG/10 ML UDC GT SCH (08:46)
[2017-03-28] MEDS: LEVETIRACETAM SOL (5 ML) 100 MG/ML UDC GT SCH ×2 (08:46→16:52)
[2017-03-28] MEDS: GABAPENTIN 300 MG CAPSULE GT SCH ×3 (08:46→16:52)
[2017-03-28] MEDS: Z GUARD REMEDY 2 OZ OINT TP SCH (08:47)
[2017-03-28] MEDS: PROSOURCE / PROSTAT (PYXIS) 30 ML UDC GT SCH ×2 (08:50→16:47)
[2017-03-28] MEDS: ESCITALOPRAM OXALATE (10 MG) 10 MG TABLET GT SCH (08:50)
[2017-03-28] MEDS ORDERED: RENAL NOVASOURCE 1,000 ML BOTTLE GT PRN (09:30)
--- NOTE | 2017-03-28 10:25 | NUR ---
D/W DR CHAIDEZ ALL MEDS AND LABS, MINIMAL URINE OUTPUT AND ??NEED FOR SP CATH. TREVA MCLAIN. ALEXA D/C'D. D/W PHARMACY AMIKACIN AND VANCO LEVELS/DOSING. FOR HD TODAY
[2017-03-28] MEDS: RENAL NOVASOURCE 1,000 ML BOTTLE GT PRN (10:53)
[2017-03-28] MEDS: ONDANSETRON HCL/PF 4 MG/2 ML VIAL IV PRN ×2 (13:13→20:23)
--- NOTE | 2017-03-28 13:19 | NUR ---
C/O NAUSEA. ZOFRAN 4 MG IVP. 500 ML YELLOW BROWN WATERY BM FROM COLOSTOMY LAST 5 HRS
--- NOTE | 2017-03-28 14:10 | NUR ---
LABS R/V'D W HD NURSE. HD IN PROGRESS WITHOUT CHANGE IN VS
--- NOTE | 2017-03-28 15:10 | NUR ---
CONTINUES TO C/O NAUSEA THEREFORE PEG FDG STOPPED. 15 MIN LATER VOMITED 75 MLS LT BROWNISH GREEN FLUID MIXED WITH FEEDING. ABDOM SOFT WITH LIQ STOOL FROM COLOSTOMY. ON PEG FLAGYL, IV VANCO AND NEGATIVE C DIFF TOXIN ON STOOL FROM 03/25
[2017-03-28] MEDS: VANCOMYCIN 500 MG in IV D5W 100 ML IV PRN (15:48)
[2017-03-28] MEDS: AMIKACIN 400 MG in IV D5W 100 ML IV PRN (16:53)
[2017-03-28] MEDS: LORAZEPAM INJ 2 MG/ML VIAL IV PRN (17:07)
--- NOTE | 2017-03-28 17:15 | NUR ---
DR XIONG INFORMED REGARDING NAUSEA, VOMITING, HIGH GASTRIC RESIDUALS WITH SOME BROWN CLOTS, AND THAT COLOSTOMY OUTPUT IS WATERY GREEN FLUID HIGH VOLUME. ORDERS FOR IVP REGLAN AND TO HOLD PEG FDG UNTIL AM
[2017-03-28] MEDS ORDERED: METOCLOPRAMIDE HCL 10 MG/2 ML VIAL IV SCH (18:00)
[2017-03-28] MEDS: MICAFUNGIN SODIUM 100 MG in IV NS 0.9% 100 ML IV SCH (18:20)
[2017-03-28] MEDS: METOCLOPRAMIDE HCL 10 MG/2 ML VIAL IV SCH ×2 (18:21→23:20)
--- NOTE | 2017-03-28 19:14 | NUR ---
AGAIN VOMITED LT BROWN FLUID AFTER NPO X 4 HRS AND IVP REGLAN AND ZOFRAN
--- NOTE | 2017-03-28 21:03 | NUR ---
pt transferred to [facility], ACLS followed, v/s stable, no pain, report given to Angel.
--- NOTE | 2017-03-28 21:10 | NUR ---
RN [facility] DF I RECEIVED PT TO ROOM#111-1. PT A/OX4 CALM,COOPERATIVE. PT C/O NAUSEA AND EMESIS PT RECEIVED ZOFRAN IVP FROM FEED ELEVATOR WORKER PRIOR TO TRANSFER. PT WITH MODERATE EMESIS OF BROWN LIQUID. PT VSS, TOLERATING CURRENT VENT SETTINGS. NAD NOTED. ALL NEEDS ATTENDED TO. PT PHYSICAL ASSESSMENT COMPLETED, NO ACUTE FINDINGS NOTED FROM PRIOR ASSESSMENT.
[2017-03-29] VITALS (8 sets, daily range): BP systolic 72–136; BP diastolic 38–96
--- NOTE | 2017-03-29 00:17 | NUR ---
RN [facility] DF PT CONTINUES TO HAVE EMESIS PT MEDICATED WITH ROUTINE DOSE OF REGLAN. I CHECKED PT,S ACCU CHECK GLUCOSE OF 80, NO INTERVENTION NEEDED. POC TO RESTART FEEDING AT 0800 ONCE PT NAUSEA HAS SUBSIDED.
[2017-03-29] MEDS: METRONIDAZOLE 500 MG TABLET PO SCH ×3 (04:24→21:00)
[2017-03-29] MEDS: METOCLOPRAMIDE HCL 10 MG/2 ML VIAL IV SCH ×3 (05:12→17:19)
[2017-03-29] MEDS: BLOOD SUGAR DIAGNOSTIC 1 EACH STRIP IN SCH ×3 (05:46→17:13)
--- NOTE | 2017-03-29 05:46 | NUR ---
WATER SOFTENER INSTALLER DF PT ACCU CHECK OF 77.PT NPO 2ND EXCESSIVE EMESIS (EPISODES Q 1 HOUR) PT RECEIVED REGLAN WHICH PT STATES "HELPS A LITTLE"
[2017-03-29 06:33] LABS: BASOPHILS # (AUTO) 0.1 /CMM (0.0-0.2); BASOPHILS % (AUTO) 0.6 % (0.0-2.0); EOSINOPHILS # (AUTO) 0.3 /CMM (0.0-0.7); EOSINOPHILS % (AUTO) 1.8 % (0.0-6.0); HEMATOCRIT 25 % (39-51); HEMOGLOBIN 7.9 g/dL (13.5-17.5); LYMPHOCYTES # (AUTO) 0.9 /CMM (0.8-4.8); MEAN CORPUSCULAR HEMOGLOBIN 31 PG (26.0-33.0); MEAN CORPUSCULAR HGB CONC 32 g/dl (31.0-36.0); MEAN CORPUSCULAR VOLUME 96 fL (80-96); MONOCYTES # (AUTO) 1.9 /CMM (0.1-1.30); MONOCYTES % (AUTO) 12.8 % (2.0-12.0); NEUTROPHILS # (AUTO) 11.6 /CMM (1.8-8.9); NEUTROPHILS % (AUTO) 78.8 % (43.0-81.0); PLATELET COUNT (AUTO) 612 /CMM (150-450); RDW COEFFICIENT OF VARIATION 21.3 (11.5-15.0); RED BLOOD CELL COUNT(AUTO) 2.59 MIL/uL (4.5-6.0); WHITE BLOOD COUNT (AUTO) 14.7 K/uL (4.3-11.0)
[2017-03-29 06:45] LABS: ALBUMIN 2.5 g/dL (3.4-5.0); BILIRUBIN,TOTAL 0.6 mg/dL (0.2-1.0); CALCIUM, SERUM 9.9 mg/dL (8.5-10.1); CREATININE 3.7 mg/dL (0.6-1.3); MAGNESIUM 2.1 mg/dL (1.8-2.4); PHOSPHORUS 1.6 mg/dL (2.5-4.9); TOTAL PROTEIN, SERUM 7.4 g/dL (6.4-8.2)
--- NOTE | 2017-03-29 07:10 | NUR ---
FINA INITIAL NOTE RECEIVED PT A/O X3, RESTING COMFORTABLY IN BED. PT ON MECHANICAL VENT, RESPIRATIONS EVEN AND UNLABORED, NO SOB OR DISTRESS PRESENT. TELE MONITOR REVEALS SINUS RHYTHM, HR= 76. LANEY MIDLINE PRESENT. G-TUBE INTACT AND CURRENTLY CLAMPED. SUPRAPUBIC CATHETER DRAINING TO GRAVITY. COLOSTOMY PRESENT DRAINING LIQUID, BROWN STOOL. SAFETY MEASURES TAKEN: BED LOCKED AND IN LOW POSITION, SIDE RAILS UP X2, BED ALARM ON AND CALL LIGHT WITHIN REACH, WILL CONTINUE TO MONITOR.
[2017-03-29] MEDS: SUCRALFATE 1 G/10 ML UDC GT SCH ×4 (07:30→22:00)
[2017-03-29 08:55] LABS: BAND % (MANUAL) 4 % (0.0-5.0); EOSINOPHILS % (MANUAL) 6 % (0-4); LYMPHOCYTES % (MANUAL) 6 % (16-48); MONOCYTES % (MANUAL) 14 % (0-11.0); NEUTROPHILS % (MANUAL) 70 (42-76)
--- NOTE | 2017-03-29 09:30 | NUR ---
RN NOTE- PT HAS NOT HAD ANY EPISODES OF NAUSEA & VOMITING THUS FAR. AM MEDS ADMINISTERED. ASPIRATION PRECAUTIONS MAINTAINED. HOB KEPT ELEVATED AT 30 DEGREES. WILL CONTINUE TO MONITOR.
[2017-03-29] MEDS: VIT B CMPLX 3/FA/VIT C/BIOTIN 1 TAB TABLET GT SCH (09:32)
[2017-03-29] MEDS: SEVELAMER CARBONATE 0.8 GM POWD.PACK GT SCH ×3 (09:32→16:35)
[2017-03-29] MEDS: ESCITALOPRAM OXALATE (10 MG) 10 MG TABLET GT SCH (09:32)
[2017-03-29] MEDS: GABAPENTIN 300 MG CAPSULE GT SCH ×3 (09:32→16:35)
[2017-03-29] MEDS: PROSOURCE / PROSTAT (PYXIS) 30 ML UDC GT SCH ×2 (09:32→16:42)
[2017-03-29] MEDS: CHLORHEXIDINE GLUCONATE 15 ML UDC MM SCH ×2 (09:32→22:19)
[2017-03-29] MEDS: LEVETIRACETAM SOL (5 ML) 100 MG/ML UDC GT SCH ×2 (09:32→16:34)
[2017-03-29] MEDS: Z GUARD REMEDY 2 OZ OINT TP SCH (09:33)
[2017-03-29] MEDS: MIDODRINE HCL (5MG) 5 MG TABLET GT SCH ×3 (09:33→16:35)
--- NOTE | 2017-03-29 10:00 | NUR ---
RN NOTE- FIBERSOURCE RE-STARTED PT HAS NOT HAD ANY EPISODES OF VOMITING. RE-STARTED AT 40 ML/HR. WILL CONTINUE TO MONITOR.
[2017-03-29] MEDS: RENAL NOVASOURCE 1,000 ML BOTTLE GT PRN (10:07)
--- NOTE | 2017-03-29 11:00 | NUR ---
RN NOTE- HD STARTED. DIALYSIS NURSE AT BEDSIDE. 1345- HD COMPLETED. 1.5 L OUT. RANDOM AMIKACIN & VANCOMYCIN LEVELS DRAWN DONE PRIOR TO DIALYSIS. RANDOM VANCO= 24 AND RANDOM AMIKACIN= 21.7. BOTH VALUES NOT WITHIN THERAPEUTIC RANGE. WILL HOLD TODAY'S DOSES. PHARMACIST AWARE. WILL CONTINUE TO MONITOR.
[2017-03-29] MEDS ORDERED: EPOETIN ALFA (10,000 UNIT) 10,000 UNIT/ML VIAL IV ONE (14:00)
[2017-03-29] MEDS: ACETAMINOPHEN 325 MG TABLET PO PRN (16:34)
[2017-03-29] MEDS ORDERED: NEUTRA PHOS 1 POWD.PACKET PO ONE (16:45)
--- NOTE | 2017-03-29 17:00 | NUR ---
RN NOTE- PT HAD EPISODE OF COFFEE GROUND EMESIS X2. HOB ELEVATED. ASPIRATION PRECAUTIONS MAINTAINED. GTF HELD. BP= 103/69. ADMINISTERED ZOFRAN 4 MG IV. 1730= PAGED & SPOKE TO AMARIS OKEEFE COATER HAND. OBTAINED ORDERS FOR THE FOLLOWIN) EGD TOMORROW MORNING, 2) STAT CBC AND LACTIC ACID, 3) G-TUBE TO LOW INTERMITTENT SUCTION, 4) PROTONIX 40 MG Q12H AND 5) KEEP PATIENT NPO (NO MEDS). ALL ORDERS PLACED. WILL CONTINUE TO MONITOR.
[2017-03-29] MEDS: ONDANSETRON HCL/PF 4 MG/2 ML VIAL IV PRN (17:02)
[2017-03-29] MEDS: MICAFUNGIN SODIUM 100 MG in IV NS 0.9% 100 ML IV SCH (17:12)
--- NOTE | 2017-03-29 17:30 | NUR ---
RN NOTE- BLOOD SUGAR= 163. INSULIN NON-ADMINISTERED GTF ON HOLD AND PT NPO. WILL ADMINISTER TYLENOL 650 MG SUPPOSITORY PT HAD EMESIS X2.
[2017-03-29] MEDS ORDERED: ACETAMINOPHEN 650 MG/SUPP.RECT RC PRN (18:00)
[2017-03-29] MEDS: PANTOPRAZOLE 40 MG VIAL IV SCH (18:00)
[2017-03-29 18:10] LABS: EOSINOPHILS # (AUTO) 0.1 /CMM (0.0-0.7); EOSINOPHILS % (AUTO) 0.2 % (0.0-6.0); HEMATOCRIT 32 % (39-51); LYMPHOCYTES # (AUTO) 0.5 /CMM (0.8-4.8); LYMPHOCYTES % (AUTO) 1.4 % (20.0-44.0); MEAN CORPUSCULAR HEMOGLOBIN 30 PG (26.0-33.0); MEAN CORPUSCULAR HGB CONC 32 g/dl (31.0-36.0); MEAN CORPUSCULAR VOLUME 94 fL (80-96); MONOCYTES # (AUTO) 0.5 /CMM (0.1-1.30); MONOCYTES % (AUTO) 1.6 % (2.0-12.0); NEUTROPHILS # (AUTO) 33.9 /CMM (1.8-8.9); NEUTROPHILS % (AUTO) 96.8 % (43.0-81.0); PLATELET COUNT (AUTO) 698 /CMM (150-450); RDW COEFFICIENT OF VARIATION 21.1 (11.5-15.0); RED BLOOD CELL COUNT(AUTO) 3.36 MIL/uL (4.5-6.0)
--- NOTE | 2017-03-29 18:15 | NUR ---
RN NOTE- LAMIN GLASGOW MANAGER INTEGRATION AT BEDSIDE. UPDATED HER ON PT'S CURRENT CONDITION. OBTAINED ORDER FOR BLOOD CULTURES WITH NEXT DIALYSIS. MISCELLANEOUS ORDER PLACED. WILL CONTINUE TO MONITOR.
--- NOTE | 2017-03-29 18:30 | NUR ---
FINA NOTE. PAGED DR. POSEY. PT'S 1829 BLOOD PRESSURE= 76/35, HR= 117. 184- DR. POSEY RETURNED PAGE. INFORMED PT'S BLOOD PRESSURE DROPPING. PLEASE SEE VITALS FLOWSHEET FOR DETAILS. OBTAINED ORDER FOR NS 500 ML BOLUS X1. ORDER PLACED WILL CONTINUE TO MONITOR. Addendum: 03/29/17 at 1925 by JASON PANDEY RN ALSO INFORMED PT'S CRITICAL LAB VALUE OF WBC= 35.1.
[2017-03-29 18:34] LABS: WHITE BLOOD COUNT (AUTO) 35.1 K/uL (4.3-11.0)
--- NOTE | 2017-03-29 18:40 | NUR ---
RN NOTE. CALLED AND SPOKE TO AMARIS MALDONADO AND UPDATED HER ON PT'S STATUS. MOST RECENT BP= 76/35, HR= 117. PER LOW VISION THERAPIST, CANCEL EGD TOMORROW. PT NOT STABLE. WILL CONTINUE TO MONITOR. Addendum: 03/29/17 at 1928 by JASON PANDEY RN ALSO INFORMED LOW VISION THERAPIST OF CRITICAL LAB OF 35.1 AND H&H= 32 AND OUTPUT FROM G-TUBE IS 350 ML. LOW VISION THERAPIST AWARE.
[2017-03-29] MEDS ORDERED: IV NS 0.9% 500 ML IV ONE ×2 (19:00→22:00)
--- NOTE | 2017-03-29 19:15 | NUR ---
RN NOTE RECEIVED PT AOX3, COMFORTABLY IN BED. CLEAN AND DRY NO ACUTE RESP DISTRESS, PALE LOOKING. TELE MONITOR REVEALS SINUS TACHY HR 105. WARMTH TO TOUCH TEMP 100 DEG FAHRENHEIT. IV SITE ON LANEY MIDLINE INTACT AND PATENT. PER PREVIOUS NURSE PT HAD HYPOTENSION SBP 70'S BOLUS IS RUNNING AT THIS TIME G-TUBE INTACT AND CLAMPED ON LIS. WITH SUPRAPUBIC CATHETER DRAINING VIA GRAVITY. COLOSTOMY PRESENT DRAINING LIQUID, BROWN STOOL.. BED LOCKED AND PLACED IN LOW POSITION, CALL LIGHT KEPT WITHIN EASY REACH, WILL CONTINUE TO MONITOR. PT IS ASYMPTOMATIC AT THIS TIME. WILL CONTINUE TO MONITOR
[2017-03-29 19:26] LABS: BAND % (MANUAL) 9 % (0.0-5.0); LYMPHOCYTES % (MANUAL) 3 % (16-48); NEUTROPHILS % (MANUAL) 88 (42-76)
[2017-03-29] MEDS: AMIKACIN 400 MG in IV D5W 100 ML IV PRN (19:33)
[2017-03-29] MEDS: VANCOMYCIN 500 MG in IV D5W 100 ML IV PRN (19:33)
--- NOTE | 2017-03-29 21:00 | NUR ---
RN NOTES CALLED AND INFORMED NEGRETTE DNP REGARDING PATIENT HYPOTENSION AFTER 500 CC BOLUS IVF. VS TAKEN TEMP 100.F RATE 100 RESP 19 AND BP 64/44 REPEATED AND GOES TO 72/45 . PT IS ASYMPTOMATIC, VERBALLY RESPONSIVE. WITH ORDER TO GIVE ANOTHER 500 CC OF IVF ASKING FOR FOOD AND STATING THAT HE IS HUNGRY. EDUCATED PT ABOUT PLAN OF CARE AND DSE. PROCESS BUT EASILY FORGETS WILL CONTINUE TO MONITOR AND FREQUENT REMINDER NEEDED
--- NOTE | 2017-03-29 22:00 | NUR ---
RN NOTES RECHECKED BP AFTER 1 HOUR AND AFTER IV NS BOLUS OF 500 CC. LATEST BLOOD PRESSURE IS 117/67MMHG. PT ASLEEP AT THIS TIME AROUSABLE AND VERBALLY RESPONSIVE NO SIGNIFICANT CHANGE OF MENTAL STATUS. WILL CONTINUE TO MONITOR.
[2017-03-30] VITALS: BP 95/55
[2017-03-30] MEDS: BLOOD SUGAR DIAGNOSTIC 1 EACH STRIP IN SCH ×5 (00:46→23:54)
[2017-03-30] MEDS: METOCLOPRAMIDE HCL 10 MG/2 ML VIAL IV SCH ×5 (00:46→23:55)
[2017-03-30 04:00] VITALS: BP 84/50
[2017-03-30] MEDS: METRONIDAZOLE 500 MG TABLET PO SCH ×3 (05:00→21:33)
[2017-03-30] MEDS: PANTOPRAZOLE 40 MG VIAL IV SCH ×2 (05:48→17:11)
[2017-03-30 06:25] LABS: EOSINOPHILS % (AUTO) 0.1 % (0.0-6.0); HEMATOCRIT 28 % (39-51); HEMOGLOBIN 8.8 g/dL (13.5-17.5); LYMPHOCYTES % (AUTO) 2.3 % (20.0-44.0); MEAN CORPUSCULAR HEMOGLOBIN 30 PG (26.0-33.0); MEAN CORPUSCULAR HGB CONC 32 g/dl (31.0-36.0); MEAN CORPUSCULAR VOLUME 95 fL (80-96); MONOCYTES # (AUTO) 1.9 /CMM (0.1-1.30); MONOCYTES % (AUTO) 4.5 % (2.0-12.0); NEUTROPHILS # (AUTO) 39.7 /CMM (1.8-8.9); NEUTROPHILS % (AUTO) 93.1 % (43.0-81.0); PLATELET COUNT (AUTO) 677 /CMM (150-450); RDW COEFFICIENT OF VARIATION 21.1 (11.5-15.0); RED BLOOD CELL COUNT(AUTO) 2.94 MIL/uL (4.5-6.0)
[2017-03-30 06:45] LABS: WHITE BLOOD COUNT (AUTO) 42.7 K/uL (4.3-11.0)
[2017-03-30 06:53] LABS: CALCIUM, SERUM 10.1 mg/dL (8.5-10.1); CREATININE 3.1 mg/dL (0.6-1.3); MAGNESIUM 2.1 mg/dL (1.8-2.4); PHOSPHORUS 2.7 mg/dL (2.5-4.9); POTASSIUM 4.2 mmol/L (3.5-5.1)
--- NOTE | 2017-03-30 07:00 | NUR ---
RN NOTES PT ASLEEP WELL ON BED, TRACH AND VENT TOLERATED WELL. AOX 2 VERBALIZED NEEDS. CONTINUE TO MONITOR BLOOD PRESSURE DUE TO HYPOTENSION LAST BP TAKEN AT THIS TIME WAS 89/57 HR 87 SATING 100% REMAINED SR HR 87. IV SITE KEPT INTACT AND PATENT. STILL ON LOW INTERMITTENT SUCTION TROUGH GT WITH GREENISH COLOR RESIDUAL ABOUT 200 CC THROUGHOUT THE SHIFT. GTF KEPT HELD UNTIL 8AM. COLOSTOMY BAG INTACT AND PATENT WITH BLACK LIQUID COLOR OUTPUT. LAB CALLED REPORTED CRITICAL VALUE WBC 42.7 ENDORSED TO AM SHIFT TO FOLLOWED MD REGARDING HIGH WBC. KEPT PT CELAN AND DRY. CALL LIGHT KEPT WITHIN EASY REACH.
--- NOTE | 2017-03-30 07:10 | NUR ---
RN INITIAL NOTES RECEIVED PT AWAKE, A/OX2-3. NO RESPIRATORY DISTRESS NOTED. NO SOB NOTED. TRACH IN PLACE. TOLERATING VENT WELL. HOB ELEVATED. NO SIGNS OF PAIN NOTED. ON TELE MONITOR, SINUS RHYTHM AT 87. GT IN PLACE, CONNECTED TO LOW INTERMITTENT SUCTION. LANEY MIDLINE AND RIGHT SUBCLAVIAN HD CATH IN PLACE. SUPRAPUBIC CATH INTACT. NO HEMATURIA NOTED. BLE ELEVATED. PT COMFORTABLE. WILL MONITOR.
[2017-03-30 08:00] VITALS: BP 99/64
[2017-03-30] MEDS: SEVELAMER CARBONATE 0.8 GM POWD.PACK GT SCH ×3 (08:24→16:14)
[2017-03-30] MEDS: LEVETIRACETAM SOL (5 ML) 100 MG/ML UDC GT SCH ×2 (08:24→16:14)
[2017-03-30] MEDS: PROSOURCE / PROSTAT (PYXIS) 30 ML UDC GT SCH ×2 (08:24→16:14)
[2017-03-30] MEDS: SUCRALFATE 1 G/10 ML UDC GT SCH ×4 (08:25→21:33)
[2017-03-30] MEDS: ESCITALOPRAM OXALATE (10 MG) 10 MG TABLET GT SCH (08:25)
[2017-03-30] MEDS: GABAPENTIN 300 MG CAPSULE GT SCH ×3 (08:25→16:14)
[2017-03-30] MEDS: Z GUARD REMEDY 2 OZ OINT TP SCH (08:25)
[2017-03-30] MEDS: MIDODRINE HCL (5MG) 5 MG TABLET GT SCH ×3 (08:25→16:15)
[2017-03-30] MEDS: CHLORHEXIDINE GLUCONATE 15 ML UDC MM SCH ×2 (08:25→21:33)
[2017-03-30] MEDS: VIT B CMPLX 3/FA/VIT C/BIOTIN 1 TAB TABLET GT SCH (08:25)
[2017-03-30 08:59] LABS: BAND % (MANUAL) 20 % (0.0-5.0); LYMPHOCYTES % (MANUAL) 1 % (16-48); MONOCYTES % (MANUAL) 4 % (0-11.0); NEUTROPHILS % (MANUAL) 75 (42-76)
--- NOTE | 2017-03-30 09:00 | NUR ---
RN NOTES SEEN AND EXAMINED BY DR. CHAIDEZ. AWARE OF CURRENT LAB VALUES: WBC 42.7, HGB 8.8, HCT 28, PLATELET 677. NO SIGNS OF ACTIVE BLEEDING NOTED. BUN 31, CREA 3.1. HD DONE YESTERDAY, 1.5L OUT. NOTIFIED PT HAS GT CONNECTED TO LOW INTERMITTENT SUCTION. STILL WITH HIGH RESIDUALS. WILL KEEP PT NPO FOR NOW. WILL CONTINUE TO MONITOR.
[2017-03-30 12:00] VITALS: BP 98/55
[2017-03-30 16:00] VITALS: BP 93/55
[2017-03-30] MEDS: MICAFUNGIN SODIUM 100 MG in IV NS 0.9% 100 ML IV SCH (17:11)
--- NOTE | 2017-03-30 18:29 | NUR ---
RN CLOSING NOTES PT REMAINS STABLE. NO SIGNIFICANT CHANGE NOTED. IV LINE IN PLACE. GT IN PLACE, CONNECTED TO LIS. COLOSTOMY IN PLACE. KEPT PT CLEAN AND DRY. REPOSITIONED Q2. BLE ELEVATED. AWAITING FOR DR. XIONG FOR EGD. WILL ENDORSE FOR CONTINUITY OF CARE.
[2017-03-30 20:00] VITALS: BP 118/73
[2017-03-31] VITALS (9 sets, daily range): BP systolic 68–126; BP diastolic 40–72
[2017-03-31] MEDS: RENAL NOVASOURCE 1,000 ML BOTTLE GT PRN (04:00)
[2017-03-31] MEDS: METOCLOPRAMIDE HCL 10 MG/2 ML VIAL IV SCH ×4 (05:50→23:13)
[2017-03-31] MEDS: PANTOPRAZOLE 40 MG VIAL IV SCH ×2 (05:51→17:21)
[2017-03-31] MEDS: METRONIDAZOLE 500 MG TABLET PO SCH ×3 (05:51→22:46)
[2017-03-31] MEDS: BLOOD SUGAR DIAGNOSTIC 1 EACH STRIP IN SCH ×4 (06:19→23:19)
[2017-03-31 07:07] LABS: CALCIUM, SERUM 9.9 mg/dL (8.5-10.1); CREATININE 4.4 mg/dL (0.6-1.3); POTASSIUM 4.1 mmol/L (3.5-5.1)
--- NOTE | 2017-03-31 07:42 | NUR ---
RN CLOSING NOTE PT REMAINS IN NO ACUTE DISTRESS IN BED. PT DID NOT HAVE ANY SIGNIFICANT CHANGE IN CONDITION DURING SHIFT. PT TOLERATED VENT SETTING WELL. ALL NEEDS MET, ALL ORDERS CARRIED OUT, WILL ENDORSE CARE TO AM RN FOR CONTINUITY OF CARE.
--- NOTE | 2017-03-31 07:46 | NUR ---
RN NOTES PT IN BED, ALERT, AWAKE AND ABLE TO MAKE NEEDS KNOWN. TRACHE SUCTION REQUESTED. LANEY PICC LINE X3 LUMEN. GT SITE CDI. VILLA TO GRAVITY, SCANT OUTPUT, COLOR LIGHT, MILKY BROWN. BED LOW AND LOCKED. CALL LIGHT WITHIN REACHED. WILL CONT TO MONITOR.
[2017-03-31] MEDS: SUCRALFATE 1 G/10 ML UDC GT SCH ×4 (08:20→22:46)
[2017-03-31] MEDS: LEVETIRACETAM SOL (5 ML) 100 MG/ML UDC GT SCH ×2 (08:20→17:21)
[2017-03-31] MEDS: VIT B CMPLX 3/FA/VIT C/BIOTIN 1 TAB TABLET GT SCH (08:21)
[2017-03-31] MEDS: GABAPENTIN 300 MG CAPSULE GT SCH ×3 (08:21→17:21)
[2017-03-31] MEDS: ESCITALOPRAM OXALATE (10 MG) 10 MG TABLET GT SCH (08:21)
[2017-03-31] MEDS: MIDODRINE HCL (5MG) 5 MG TABLET GT SCH ×3 (08:21→17:21)
[2017-03-31] MEDS: SEVELAMER CARBONATE 0.8 GM POWD.PACK GT SCH ×3 (08:21→17:20)
[2017-03-31] MEDS: CHLORHEXIDINE GLUCONATE 15 ML UDC MM SCH ×2 (08:24→22:46)
[2017-03-31] MEDS: PROSOURCE / PROSTAT (PYXIS) 30 ML UDC GT SCH ×2 (08:24→17:00)
[2017-03-31] MEDS: Z GUARD REMEDY 2 OZ OINT TP SCH (08:33)
[2017-03-31] MEDS: ACETAMINOPHEN 325 MG TABLET PO PRN ×2 (09:20→17:20)
--- NOTE | 2017-03-31 09:35 | NUR ---
FINA/RN - Notes Pt noted with elevated HR up to 160's on desk monitor. Stat EKG done showing atrial flutter with HR 151. BP 179/81. Pt noted to be anxious and diaphoretic. Dr Wagner called and notified regarding change of condition. Received orders for stat CXR, doppler BLE, ABG troponin x3, and Ativan 1mg IVP one time. Will carry out orders. Addendum: 03/31/17 at 1027 by GREG ZUNIGA RN WRONG PATIENT DOCUMENTED, DISREGARD NOTE ABOVE
--- NOTE | 2017-03-31 09:55 | NUR ---
FINA/RN - Notes Dr Sangeeta Peterson called, regarding pt's condition. Pt HR at 155, BP 193/135, complaining of chest pain. Ativan 1mg IVP given. Received orders to obtain Cardio consult (Dr Bazan), start Metoprolol 25mg BID via GT, and Morphine 2mg IVP Q4h. Verified with patient regarding codeine allergy, pt states "I have received Morphine before and not experience any reaction." Will carry out MD orders. Addendum: 03/31/17 at 1027 by GREG ZUNIGA RN WRONG PATIENT DOCUMENTED, DISREGARD NOTE ABOVE
--- NOTE | 2017-03-31 12:14 | NUR ---
FNIA RN NOTES BP 71/40 HR 91. PT IS ON HD AT THIS TIME. WILL CONTINUE TO MONITOR.
[2017-03-31] MEDS ORDERED: IV NS 0.9% 500 ML IV ONE (12:30)
--- NOTE | 2017-03-31 12:30 | NUR ---
FINA/RN - Notes Pt noted with hypotension BP 69/48 post HD. Received orders from Dr Salmon to give 500 NS bolus. Will carry out.
[2017-03-31] MEDS: VANCOMYCIN 500 MG in IV D5W 100 ML IV PRN (12:39)
--- NOTE | 2017-03-31 13:00 | NUR ---
FINA/RN - Notes Pt's latest BP 126/67.
[2017-03-31] MEDS: AMIKACIN 400 MG in IV D5W 100 ML IV PRN (13:30)
--- NOTE | 2017-03-31 17:20 | NUR ---
FINA/RN - Notes Pt noted with temperature 100.4 F per oral, tachycardic HR 122, and diaphoretic. Administered Tylenol 650 mg via GT as ordered. Cooling measures in place. Will continue to monitor.
[2017-03-31] MEDS: MICAFUNGIN SODIUM 100 MG in IV NS 0.9% 100 ML IV SCH (17:24)
[2017-03-31] MEDS: INSULIN ASPART HUMALOG/NOVOLOG 100 UNIT/ML CARTRIDGE SQ PRN (17:39)
[2017-03-31 18:33] LABS: EOSINOPHILS # (AUTO) 0.6 /CMM (0.0-0.7); EOSINOPHILS % (AUTO) 2.4 % (0.0-6.0); HEMATOCRIT 28 % (39-51); HEMOGLOBIN 8.5 g/dL (13.5-17.5); LYMPHOCYTES # (AUTO) 0.8 /CMM (0.8-4.8); LYMPHOCYTES % (AUTO) 3.2 % (20.0-44.0); MEAN CORPUSCULAR HEMOGLOBIN 30 PG (26.0-33.0); MEAN CORPUSCULAR HGB CONC 30 g/dl (31.0-36.0); MEAN CORPUSCULAR VOLUME 97 fL (80-96); MONOCYTES # (AUTO) 4.1 /CMM (0.1-1.30); MONOCYTES % (AUTO) 16.4 % (2.0-12.0); NEUTROPHILS # (AUTO) 19.3 /CMM (1.8-8.9); PLATELET COUNT (AUTO) 702 /CMM (150-450); RDW COEFFICIENT OF VARIATION 21.1 (11.5-15.0); RED BLOOD CELL COUNT(AUTO) 2.89 MIL/uL (4.5-6.0); WHITE BLOOD COUNT (AUTO) 24.7 K/uL (4.3-11.0)
--- NOTE | 2017-03-31 19:30 | NUR ---
FINA RN INITIAL NOTE PT RECEIVED AWAKE AND ALERT SITTING UP IN BED. ON MECH VENT WITH SETTINGS WELL TOLERATED. TELE-SR 95. IV LANEY PICC CLEAN, PATENT AND FLUSHING WELL. RIGHT SUBCLAVIAN HD CATH CLEAN AND DRY. GTUBE SITE CLEAN AND IN PLACE. GTUBE FLUSHING WELL AND NOTED WITH 220ML RESIDUALS. GTUBE FEEDING ON HOLD AND WILL RECHECK. HOB ELEVATED AND ON ASPIRATION PRECAUTIONS. COLOSTOMY CLEAN AND IN PLACE. CALL LIGHT WITHIN REACH. WILL CONTINUE TO MONITOR.
[2017-03-31 19:40] LABS: BAND % (MANUAL) 26 % (0.0-5.0); EOSINOPHILS % (MANUAL) 2 % (0-4); LYMPHOCYTES % (MANUAL) 6 % (16-48); MONOCYTES % (MANUAL) 19 % (0-11.0); NEUTROPHILS % (MANUAL) 47 (42-76)
--- NOTE | 2017-03-31 23:00 | NUR ---
FINA RN NOTE GTUBE RESIDUALS 50ML AND FEEDING RESUMED. WILL RECHECK AT A LATER TIME.
[2017-04-01] VITALS (7 sets, daily range): BP systolic 85–104; BP diastolic 37–65
--- NOTE | 2017-04-01 03:00 | NUR ---
FINA RN NOTE RESIDUALS 240ML AND FEEDING STOPPED WITH GTUBE CLAMPED. HOB ELEVATED AND ON ASPIRATION PRECAUTIONS. WILL CONTINUE TO MONITOR.
[2017-04-01] MEDS: BLOOD SUGAR DIAGNOSTIC 1 EACH STRIP IN SCH ×3 (05:36→17:07)
[2017-04-01] MEDS: PANTOPRAZOLE 40 MG VIAL IV SCH ×2 (05:36→17:07)
[2017-04-01] MEDS: METRONIDAZOLE 500 MG TABLET PO SCH ×3 (05:36→20:22)
[2017-04-01] MEDS: METOCLOPRAMIDE HCL 10 MG/2 ML VIAL IV SCH ×3 (05:36→17:08)
[2017-04-01] MEDS: RENAL NOVASOURCE 1,000 ML BOTTLE GT PRN (05:55)
--- NOTE | 2017-04-01 06:00 | NUR ---
FINA RN NOTE RESTARTED GTUBE FEEDING WITH RESIDUALS AT 20ML. WILL CONTINUE TO MONITOR.
[2017-04-01 06:49] LABS: EOSINOPHILS # (AUTO) 0.3 /CMM (0.0-0.7); EOSINOPHILS % (AUTO) 1.1 % (0.0-6.0); HEMATOCRIT 29 % (39-51); LYMPHOCYTES % (AUTO) 3.2 % (20.0-44.0); MEAN CORPUSCULAR HEMOGLOBIN 30 PG (26.0-33.0); MEAN CORPUSCULAR HGB CONC 31 g/dl (31.0-36.0); MEAN CORPUSCULAR VOLUME 96 fL (80-96); MONOCYTES % (AUTO) 9.5 % (2.0-12.0); NEUTROPHILS # (AUTO) 27.3 /CMM (1.8-8.9); NEUTROPHILS % (AUTO) 86.2 % (43.0-81.0); PLATELET COUNT (AUTO) 659 /CMM (150-450); RDW COEFFICIENT OF VARIATION 20.2 (11.5-15.0)
[2017-04-01 07:02] LABS: WHITE BLOOD COUNT (AUTO) 31.7 K/uL (4.3-11.0)
[2017-04-01 07:09] LABS: CALCIUM, SERUM 9.6 mg/dL (8.5-10.1); CREATININE 3.4 mg/dL (0.6-1.3); MAGNESIUM 2.1 mg/dL (1.8-2.4); PHOSPHORUS 2.8 mg/dL (2.5-4.9); POTASSIUM 3.2 mmol/L (3.5-5.1)
--- NOTE | 2017-04-01 07:47 | NUR ---
FINA RN CLOSING NOTE PT REMAINED STABLE DURING SHIFT. NO S/SX OF RESPIRATORY DISTRESS NOTED. ALL NEEDS ATTENDED TO PROMPTLY. ON ASPIRATION PRECAUTIONS. HOB ELEVATED. VENT SETTINGS WELL TOLERATED. SUCTIONED NEEDED. ORAL CARE PERFORMED. NO C/O PAIN OR DISCOMFORT NOTED. WILL ENDORSE TO NEXT SHIFT FOR CONTINUITY OF CARE.
--- NOTE | 2017-04-01 07:49 | NUR ---
FINA RN NOTE LAB CALLED AND REPORTED WBC 31.7. WILL ENDORSE.
[2017-04-01] MEDS: ESCITALOPRAM OXALATE (10 MG) 10 MG TABLET GT SCH (08:42)
[2017-04-01] MEDS: GABAPENTIN 300 MG CAPSULE GT SCH ×3 (08:42→16:21)
[2017-04-01] MEDS: CHLORHEXIDINE GLUCONATE 15 ML UDC MM SCH ×2 (08:42→20:22)
[2017-04-01] MEDS: LEVETIRACETAM SOL (5 ML) 100 MG/ML UDC GT SCH ×2 (08:43→16:22)
[2017-04-01] MEDS: SEVELAMER CARBONATE 0.8 GM POWD.PACK GT SCH ×3 (08:43→16:22)
[2017-04-01] MEDS: VIT B CMPLX 3/FA/VIT C/BIOTIN 1 TAB TABLET GT SCH (08:43)
[2017-04-01] MEDS: MIDODRINE HCL (5MG) 5 MG TABLET GT SCH ×3 (08:43→16:22)
[2017-04-01] MEDS: Z GUARD REMEDY 2 OZ OINT TP SCH (08:43)
[2017-04-01] MEDS: SUCRALFATE 1 G/10 ML UDC GT SCH ×4 (08:50→21:27)
[2017-04-01 08:52] LABS: BAND % (MANUAL) 4 % (0.0-5.0); LYMPHOCYTES % (MANUAL) 6 % (16-48); MONOCYTES % (MANUAL) 9 % (0-11.0); NEUTROPHILS % (MANUAL) 81 (42-76)
--- NOTE | 2017-04-01 09:32 | NUR ---
FINA RN: Dr Wagner at bedside; updated on pt status. Informed of elevated WBC count, afebrile overnight, GT residuals >200cc overnight, resumed at 0800 at 20cc/hr to titrate to goal rate. Per MD, "steroids maybe causing fluctuation in WBC count. I will check the chart."
--- NOTE | 2017-04-01 11:15 | NUR ---
FINA RN: Dr Viky sharma; informed of recurrent fevers, lab results, pt asymptomatic with SBP between 80-90's. Obtained orders for HD cath removal after HD tomorrow and to maintain SBP > 80mmHg.
--- NOTE | 2017-04-01 15:00 | NUR ---
FINA/RN: Bed bath, wound care rendered. Tolerated well. Colostomy stoma beefy red; no s/s leak, infection at site. Suprapubic cath with minimal UO. Pt follows commands and verbalizes needs. Kept clean and comfortable. Will cont to monitor pt
--- NOTE | 2017-04-01 16:30 | NUR ---
FINA RN: Elizabeth, ELECTRIC TRUCK CRANE OPERATOR for Dr Salmon at bedside for surgical f/u. Informed of plan to DC permacath tomorrow, pt now tolerating TF after having high residuals overnight. No new orders.
[2017-04-01] MEDS: MICAFUNGIN SODIUM 100 MG in IV NS 0.9% 100 ML IV SCH (17:08)
--- NOTE | 2017-04-01 17:40 | NUR ---
Male trach pt on mechanical vent, tolerated current vent settings well. No changes made. Vent plugged into a red outlet, alarms are set and audible, and BVM is at bedside. Addendum: 04/01/17 at 1741 by DARVIN VALLES RT Amended: Links added.
--- NOTE | 2017-04-01 18:30 | NUR ---
FINA RN: SYL Warren in for ID f/u. Informed of micro and lab results. Aware of plan for HD cath removal s/p HD tomorrow. New orders noted and carried out.
--- NOTE | 2017-04-01 19:04 | NUR ---
FINA RN: Pt sitting in bed, watching tv, no distress noted. Alarm sounds audible. Care endorsed to pm rn for cora.
[2017-04-01] MEDS: MEROPENEM 500 MG in IV NS 0.9% 50 ML IV SCH (20:23)
[2017-04-02] VITALS (17 sets, daily range): BP systolic 63–115; BP diastolic 20–66
[2017-04-02] MEDS: METOCLOPRAMIDE HCL 10 MG/2 ML VIAL IV SCH ×4 (00:43→18:25)
[2017-04-02] MEDS: BLOOD SUGAR DIAGNOSTIC 1 EACH STRIP IN SCH ×4 (00:43→18:25)
[2017-04-02] MEDS: RENAL NOVASOURCE 1,000 ML BOTTLE GT PRN ×2 (04:31→18:24)
[2017-04-02] MEDS: METRONIDAZOLE 500 MG TABLET PO SCH ×3 (04:31→20:07)
[2017-04-02] MEDS: PANTOPRAZOLE 40 MG VIAL IV SCH ×2 (06:05→18:25)
[2017-04-02 06:55] LABS: CALCIUM, SERUM 10.9 mg/dL (8.5-10.1); CREATININE 4.8 mg/dL (0.6-1.3); MAGNESIUM 2.4 mg/dL (1.8-2.4); PHOSPHORUS 3.4 mg/dL (2.5-4.9); POTASSIUM 3.2 mmol/L (3.5-5.1)
[2017-04-02 06:59] LABS: EOSINOPHILS # (AUTO) 0.2 /CMM (0.0-0.7); EOSINOPHILS % (AUTO) 0.9 % (0.0-6.0); HEMATOCRIT 31 % (39-51); HEMOGLOBIN 9.8 g/dL (13.5-17.5); LYMPHOCYTES % (AUTO) 4.8 % (20.0-44.0); MEAN CORPUSCULAR HEMOGLOBIN 31 PG (26.0-33.0); MEAN CORPUSCULAR HGB CONC 32 g/dl (31.0-36.0); MEAN CORPUSCULAR VOLUME 97 fL (80-96); MONOCYTES # (AUTO) 1.8 /CMM (0.1-1.30); MONOCYTES % (AUTO) 8.4 % (2.0-12.0); NEUTROPHILS # (AUTO) 18.2 /CMM (1.8-8.9); NEUTROPHILS % (AUTO) 85.9 % (43.0-81.0); PLATELET COUNT (AUTO) 681 /CMM (150-450); RDW COEFFICIENT OF VARIATION 19.9 (11.5-15.0); RED BLOOD CELL COUNT(AUTO) 3.17 MIL/uL (4.5-6.0); WHITE BLOOD COUNT (AUTO) 21.1 K/uL (4.3-11.0)
--- NOTE | 2017-04-02 07:00 | NUR ---
rogelio initial note received pt in bed, asleep, easy to arouse, able to make needs known, able to follow commands, pt is on tele monitor showing sr @ 94 bpm, no c/o of chest pain or discomfort at this time, pt is on [facility] vent shiley #8 ac 16 tv 500 fio2 40% peep 0, sating well, breathing is unlabored and even, no s/s of resp.distress or sob noted, pt has gtube, running novasource @ 40 ml/hr, tolerating well, no residuals noted, pt has suprapublic cath, draining no urine at this time, pt has bruno picc, running tko, c/d/i/patent, flushing well, no s/s of infection/ infiltration noted at this time, pt has rcw hd cath, dressing c/d/i, pt is noted with multiple skin issues, treatments ack and will be carried out, all safety measures in place at all times, call light within easy reach, will monitor pt closely for changes
[2017-04-02] MEDS: GABAPENTIN 300 MG CAPSULE GT SCH ×3 (08:21→16:39)
[2017-04-02] MEDS: LEVETIRACETAM SOL (5 ML) 100 MG/ML UDC GT SCH ×2 (08:21→16:39)
[2017-04-02] MEDS: SEVELAMER CARBONATE 0.8 GM POWD.PACK GT SCH ×3 (08:21→16:39)
[2017-04-02] MEDS: ESCITALOPRAM OXALATE (10 MG) 10 MG TABLET GT SCH (08:21)
[2017-04-02] MEDS: SUCRALFATE 1 G/10 ML UDC GT SCH ×4 (08:21→22:11)
[2017-04-02] MEDS: CHLORHEXIDINE GLUCONATE 15 ML UDC MM SCH ×2 (08:21→20:07)
[2017-04-02] MEDS: VIT B CMPLX 3/FA/VIT C/BIOTIN 1 TAB TABLET GT SCH (08:21)
[2017-04-02] MEDS: Z GUARD REMEDY 2 OZ OINT TP SCH (08:22)
[2017-04-02] MEDS: MIDODRINE HCL (5MG) 5 MG TABLET GT SCH ×3 (08:22→16:43)
--- NOTE | 2017-04-02 12:45 | NUR ---
rogelio note pt currently receiving hd at this time
[2017-04-02] MEDS ORDERED: ALBUMIN 25% 25 GM in PREMIX 1 EA IV ONE (13:00)
[2017-04-02] MEDS ORDERED: LIDOCAINE 1%-EPI 1:100,000 20 ML VIAL IJ ONE (13:00)
[2017-04-02] MEDS ORDERED: LIDOCAINE 2%-EPI 1:200,000 20 ML VIAL IJ ONE (14:00)
--- NOTE | 2017-04-02 14:24 | NUR ---
rogelio note hd completed 500ml removed.
--- NOTE | 2017-04-02 17:28 | NUR ---
rogelio note pt still refusing complete bedbath x5, oral care, cath and colostomy care provided, pt turned and repositioned, pt states not today, tomorrow, informed pt the importance of bedbath, pt says im tired
--- NOTE | 2017-04-02 17:31 | NUR ---
rogelio note amikicin level 21.7, not given, md aware
--- NOTE | 2017-04-02 20:00 | NUR ---
RN:TD: PT RECEIVED IN BED PALE LETHARGIC BUT AROUSABLE TO PAIN. PT IS NOTABLY TACHYCARDIC AND HYPOTENSIVE. ORDERS RECEIVED TO GIVE NS 250 BOLUS AND MAY REPEAT IF SBP DOES NOT IMPROVE. ORDERS CARRIED OUT. PT TF PLACED ON HOLD WHILE HYPOTENSIVE. PT REMAINS IN CRITICAL CONDITION. MD NURSES AIDE AWARE.
[2017-04-02] MEDS: ACETAMINOPHEN 325 MG TABLET PO PRN (20:07)
[2017-04-02] MEDS: MEROPENEM 500 MG in IV NS 0.9% 50 ML IV SCH (20:07)
[2017-04-02] MEDS ORDERED: IV NS 0.9% 250 ML IV ONE ×3 (20:30)
[2017-04-02] MEDS ORDERED: IV NS 0.9% 500 ML IV ONE (21:00)
--- NOTE | 2017-04-02 21:00 | NUR ---
RN: TD: NS BOLUS 250ML X2 COMPLETED, PT REMAINS CRITICAL ORDERS TO GIVE ADDITIONAL 500ML BOLUS AND CALL BACK IF SBP DOESN'T RETURN TO BASELINE ABOVE 80 SYSTOLIC. MD AWARE THAT PT IS HD ON VENT. ORDERS CARRIED OUT. WILL CONTINUE TO MONITOR CLOSELY.
[2017-04-02] MEDS ORDERED: NOREPINEPHRINE 16 MG in IV D5W 500 ML IV PRN (22:00)
--- NOTE | 2017-04-02 22:06 | NUR ---
RN:TD: PT BP REMAINS 70'S SYSTOLIC. MD NOTIFIED. NEW ORDERS TO TRANSFER PT TO ICU AND TITRATE LEVOPHED GTT TO MAINTAIN SBP GREATER THAN 80.
--- NOTE | 2017-04-02 22:28 | NUR ---
RN:TD: PT TRANSFERRED TO ICU ROOM 252 PER MD ORDERS FOR HYPOTENSION DESPITE FLUID RESUSCITATION. ATTEMPTED TO PROVIDE BEDSIDE REPORT TO NURSE, ALTHOUGH RN JIMMY REFUSED, STATING SHE "ALREADY READ THE CHART". FNIA CHARGE NURSE MADE AWARE THAT ICU NURSE REFUSED REPORT. ICU CHARGE NURSE AT THE BEDSIDE WHEN JMIMY REFUSED REPORT.
[2017-04-03] VITALS (52 sets, daily range): BP systolic 83–126; BP diastolic 37–67
[2017-04-03] MEDS: RENAL NOVASOURCE 1,000 ML BOTTLE GT PRN (00:09)
[2017-04-03] MEDS: BLOOD SUGAR DIAGNOSTIC 1 EACH STRIP IN SCH ×5 (00:09→23:09)
[2017-04-03] MEDS: METOCLOPRAMIDE HCL 10 MG/2 ML VIAL IV SCH ×5 (00:09→23:09)
[2017-04-03 05:22] LABS: CALCIUM, SERUM 10.4 mg/dL (8.5-10.1); CREATININE 3.7 mg/dL (0.6-1.3); MAGNESIUM 2.3 mg/dL (1.8-2.4); PHOSPHORUS 2.3 mg/dL (2.5-4.9); POTASSIUM 4.1 mmol/L (3.5-5.1)
[2017-04-03] MEDS: METRONIDAZOLE 500 MG TABLET PO SCH ×3 (05:31→20:28)
[2017-04-03] MEDS: PANTOPRAZOLE 40 MG VIAL IV SCH ×2 (05:32→17:06)
--- NOTE | 2017-04-03 05:50 | NUR ---
GARDEN WORKER PT TRANSFERRED TO ICU FOR HYPOTENSION TO BEGIN LEVOPHED HOWEVER PT MAINTAINED ADEQUATE SBP AND PRESSOR NEVER STARTED. CONTINUE TO MONITOR.
[2017-04-03 05:58] LABS: EOSINOPHILS # (AUTO) 0.1 /CMM (0.0-0.7); EOSINOPHILS % (AUTO) 0.1 % (0.0-6.0); HEMATOCRIT 29 % (39-51); HEMOGLOBIN 9.3 g/dL (13.5-17.5); LYMPHOCYTES % (AUTO) 1.9 % (20.0-44.0); MEAN CORPUSCULAR HEMOGLOBIN 31 PG (26.0-33.0); MEAN CORPUSCULAR HGB CONC 32 g/dl (31.0-36.0); MEAN CORPUSCULAR VOLUME 96 fL (80-96); MONOCYTES # (AUTO) 2.2 /CMM (0.1-1.30); MONOCYTES % (AUTO) 4.3 % (2.0-12.0); NEUTROPHILS # (AUTO) 48.7 /CMM (1.8-8.9); NEUTROPHILS % (AUTO) 93.7 % (43.0-81.0); PLATELET COUNT (AUTO) 619 /CMM (150-450); RDW COEFFICIENT OF VARIATION 19.9 (11.5-15.0); RED BLOOD CELL COUNT(AUTO) 3.04 MIL/uL (4.5-6.0)
[2017-04-03] MEDS ORDERED: AMIKACIN 250 MG in IV D5W 100 ML IV PRN (06:00)
[2017-04-03 06:01] LABS: WHITE BLOOD COUNT (AUTO) 51.9 K/uL (4.3-11.0)
[2017-04-03 06:23] LABS: BAND % (MANUAL) 10 % (0.0-5.0); LYMPHOCYTES % (MANUAL) 3 % (16-48); MONOCYTES % (MANUAL) 6 % (0-11.0); NEUTROPHILS % (MANUAL) 81 (42-76)
--- NOTE | 2017-04-03 07:09 | NUR ---
TECHNICAL BUSINESS SYSTEMS ANALYST WBC 51.9; CALLED CRITICAL RESULTS TO DR TEJEDA STILL WAITING CALL BACK.
--- NOTE | 2017-04-03 07:30 | NUR ---
HYDRAULIC DESIGN ENGINEER: Pt received, trach-vent, breathing even and unlabored, A&Ox2, anxious, restless, verbalizes needs. Colostomy noted with greenish liquid output; wound care rendered, kept clean and dry. Suprapubic catheter with minimal output of 5cc. Airway suctioned with small amount of thin white secretions. No gastric residuals noted. Turned and repositioned for comfort. Educated on POC, needs frequent reinforcement and education. Safety measures in place. Will cont to monitor pt.
[2017-04-03] MEDS: SEVELAMER CARBONATE 0.8 GM POWD.PACK GT SCH ×3 (08:19→16:39)
[2017-04-03] MEDS: LORAZEPAM INJ 2 MG/ML VIAL IV PRN (08:19)
[2017-04-03] MEDS: ESCITALOPRAM OXALATE (10 MG) 10 MG TABLET GT SCH (08:19)
[2017-04-03] MEDS: LEVETIRACETAM SOL (5 ML) 100 MG/ML UDC GT SCH ×2 (08:19→16:39)
[2017-04-03] MEDS: SUCRALFATE 1 G/10 ML UDC GT SCH ×4 (08:20→21:56)
[2017-04-03] MEDS: CHLORHEXIDINE GLUCONATE 15 ML UDC MM SCH ×2 (08:20→20:28)
[2017-04-03] MEDS: GABAPENTIN 300 MG CAPSULE GT SCH ×3 (08:20→16:39)
[2017-04-03] MEDS: VIT B CMPLX 3/FA/VIT C/BIOTIN 1 TAB TABLET GT SCH (08:20)
[2017-04-03] MEDS: MIDODRINE HCL (5MG) 5 MG TABLET GT SCH ×3 (08:21→16:40)
[2017-04-03] MEDS: Z GUARD REMEDY 2 OZ OINT TP SCH (08:21)
--- NOTE | 2017-04-03 09:00 | NUR ---
RADIOGRAPHER TECHNOLOGIST: Due meds administered, educated. Administered prn ativan, pt co anxiety. Educated on relaxing techniques. Will reassess effectiveness.
--- NOTE | 2017-04-03 10:30 | NUR ---
OIL FIRE SPECIALIST: New midline inserted on TAHIR, patent, flushed with good blood return; old midline on LANEY discontinued, catheter tip intact.
--- NOTE | 2017-04-03 11:30 | NUR ---
CHIEF ENGINEER DRILLING AND RECOVERY: Dr Salmon at bedside. Updated on pt status, pt transferred from [facility] for hypotension, did not require vasopressors overnight. Last HD was yesterday. R Subclavian HD cath discontinued by MD. Pressure applied for 15 mins. No bleeding noted at site. Per MD, "Aly Zavala will be back in a few days, I'll ask him to put a line in."
[2017-04-03] MEDS: INSULIN ASPART HUMALOG/NOVOLOG 100 UNIT/ML CARTRIDGE SQ PRN (13:19)
[2017-04-03] MEDS: MEROPENEM 500 MG in IV NS 0.9% 50 ML IV SCH (20:28)
[2017-04-04] VITALS (35 sets, daily range): BP systolic 87–116; BP diastolic 23–65
[2017-04-04] MEDS: METOCLOPRAMIDE HCL 10 MG/2 ML VIAL IV SCH ×4 (05:05→23:13)
[2017-04-04] MEDS: PANTOPRAZOLE 40 MG VIAL IV SCH ×2 (05:05→08:33)
[2017-04-04] MEDS: METRONIDAZOLE 500 MG TABLET PO SCH ×3 (05:05→21:32)
[2017-04-04] MEDS: BLOOD SUGAR DIAGNOSTIC 1 EACH STRIP IN SCH ×4 (05:06→23:09)
[2017-04-04 05:11] LABS: BASOPHILS # (AUTO) 0.1 /CMM (0.0-0.2); BASOPHILS % (AUTO) 0.2 % (0.0-2.0); EOSINOPHILS # (AUTO) 0.1 /CMM (0.0-0.7); EOSINOPHILS % (AUTO) 0.3 % (0.0-6.0); HEMATOCRIT 28 % (39-51); HEMOGLOBIN 8.9 g/dL (13.5-17.5); LYMPHOCYTES % (AUTO) 3.7 % (20.0-44.0); MEAN CORPUSCULAR HEMOGLOBIN 30 PG (26.0-33.0); MEAN CORPUSCULAR HGB CONC 31 g/dl (31.0-36.0); MEAN CORPUSCULAR VOLUME 96 fL (80-96); MONOCYTES # (AUTO) 2.5 /CMM (0.1-1.30); MONOCYTES % (AUTO) 8.9 % (2.0-12.0); NEUTROPHILS # (AUTO) 23.9 /CMM (1.8-8.9); NEUTROPHILS % (AUTO) 86.9 % (43.0-81.0); PLATELET COUNT (AUTO) 594 /CMM (150-450); RDW COEFFICIENT OF VARIATION 19.3 (11.5-15.0); RED BLOOD CELL COUNT(AUTO) 2.97 MIL/uL (4.5-6.0); WHITE BLOOD COUNT (AUTO) 27.5 K/uL (4.3-11.0)
[2017-04-04 05:25] LABS: CALCIUM, SERUM 10.9 mg/dL (8.5-10.1); CREATININE 4.9 mg/dL (0.6-1.3); MAGNESIUM 2.5 mg/dL (1.8-2.4); PHOSPHORUS 2.2 mg/dL (2.5-4.9); POTASSIUM 3.3 mmol/L (3.5-5.1)
[2017-04-04 06:09] LABS: LYMPHOCYTES % (MANUAL) 2 % (16-48); MONOCYTES % (MANUAL) 9 % (0-11.0); NEUTROPHILS % (MANUAL) 89 (42-76)
--- NOTE | 2017-04-04 07:46 | NUR ---
RT PATIENT REC'D TRACHED ON [facility] VENT WITH NOTED SETTINGS REBECCA WELL. VENT ALARMS CHECKED + AUDIBLE. CUFF PRESSURE CHECKED CONSUMER INSIGHT ANALYST. VENT PLUGGED INTO RED OUTLET. PATIENT SUCTIONED WITH MOD AMT PALE SEMITHICK SECRETIONS. B/S DIM. PATIENT APPEARS COMFORTABLE AND IN NO DISTRESS. AMBU BAG AT HOB. CONT CURRENT PLAN OF CARE. Addendum: 04/04/17 at 0748 by OTILIA DE LA TORRE RT Amended: Links added.
[2017-04-04] MEDS: RENAL NOVASOURCE 1,000 ML BOTTLE GT PRN (08:32)
[2017-04-04] MEDS: CHLORHEXIDINE GLUCONATE 15 ML UDC MM SCH ×2 (08:33→21:32)
[2017-04-04] MEDS: VIT B CMPLX 3/FA/VIT C/BIOTIN 1 TAB TABLET GT SCH (08:33)
[2017-04-04] MEDS: GABAPENTIN 300 MG CAPSULE GT SCH ×3 (08:33→16:39)
[2017-04-04] MEDS: SUCRALFATE 1 G/10 ML UDC GT SCH ×4 (08:33→21:32)
[2017-04-04] MEDS: ESCITALOPRAM OXALATE (10 MG) 10 MG TABLET GT SCH (08:33)
[2017-04-04] MEDS: SEVELAMER CARBONATE 0.8 GM POWD.PACK GT SCH ×3 (08:33→16:39)
[2017-04-04] MEDS: LEVETIRACETAM SOL (5 ML) 100 MG/ML UDC GT SCH ×2 (08:33→16:39)
[2017-04-04] MEDS: MIDODRINE HCL (5MG) 5 MG TABLET GT SCH ×3 (08:35→16:40)
[2017-04-04] MEDS: Z GUARD REMEDY 2 OZ OINT TP SCH (08:36)
[2017-04-04] MEDS ORDERED: NEUTRA PHOS 1 POWD.PACKET NG ONE (14:00)
[2017-04-04] MEDS: ACETAMINOPHEN 325 MG TABLET PO PRN (16:39)
--- NOTE | 2017-04-04 17:00 | NUR ---
RN NOTE PT TRANSFERRED TO [facility], REPORT GIVEN TO VIVIANA LAM FO CLAUDIA. PT STABLE.
--- NOTE | 2017-04-04 17:10 | NUR ---
Nurses Note receiving pt from ICU Patient was received in room at 1700, vital signs stable, stable. No complaints of pain given GT feeding was held, residual at 1430 was 280 cc. GT is clamped. Residual to be recheck at 1830. Patient is on ventilator, with rate 16 with 40 % oxygen, tidal volume 500. colostomy bag is intact. Suprapubic catheter to gravity.
--- NOTE | 2017-04-04 19:30 | NUR ---
FINA/RN NOTES: RECEIVED PT. IN BED SLEEPING BUT EASILY AROUSABLE. NOT IN ANY RESPIRATORY DISTRESS NOTED. ON VENTILATOR TOLERATING SETTING WELL. W/ GTF INPLACE AT 40ML/HR TOLERATING WELL. HAS SUPRAPUBIC CATH IN PLACE VIA GRAVITY DRAINING TEA COLOR URINE. HAS COLOSTOMY W/ BROWN COLOR STOOL. HAS TAHIR MIDLINE IN PLACE PATENT AND INTACT W/ NO S/S OF INFECTION/INFILTRATION NOTED. CALL LIGHT W/ REACH. HOB ELEVATED. DENIES ANY PAIN OR DISCOMFORT AT THIS TIME. WILL CONTINUE TO MONITOR.
[2017-04-04] MEDS: MEROPENEM 500 MG in IV NS 0.9% 50 ML IV SCH (19:44)
--- NOTE | 2017-04-04 21:30 | NUR ---
FINA/RN NOTES: GTF RESIDUAL CHECKED 165 ML. GTF HELD. WILL RECHECK IT AGAIN.
[2017-04-05] VITALS: BP 124/65
--- NOTE | 2017-04-05 | NUR ---
FINA/MS NOTES: GTF FEEDING ON HOLD. RESIDUAL CHECKED AGAIN. 140 ML. WILL CONTINUE TO MONITOR.
--- NOTE | 2017-04-05 01:20 | NUR ---
FINA/MS NOTES: CHECKED GTF RESIDUAL 20 ML. GTF RESTARTED. WILL CONTINUE TO MONITOR.
[2017-04-05 04:00] VITALS: BP 107/66
[2017-04-05] MEDS: METRONIDAZOLE 500 MG TABLET PO SCH ×3 (04:27→21:33)
[2017-04-05] MEDS: PANTOPRAZOLE 40 MG VIAL IV SCH ×2 (05:00→17:00)
[2017-04-05] MEDS: METOCLOPRAMIDE HCL 10 MG/2 ML VIAL IV SCH ×4 (05:01→23:01)
[2017-04-05] MEDS: BLOOD SUGAR DIAGNOSTIC 1 EACH STRIP IN SCH ×4 (05:10→23:00)
--- NOTE | 2017-04-05 06:43 | NUR ---
FINA/MS NOTES: PT. IN BED SLEEPING BUT EASILY AROUSABLE. NOT IN ANY RESPIRATORY DISTRESS NOTED. W/VENT/GTF TOLERATING SETTING WELL. CALL LIGHT W/ REACH. ALL NEEDS MEET. REPORT GIVEN TO NEXT SHIFT NURSE FOR CLAUDIA.
--- NOTE | 2017-04-05 07:10 | NUR ---
TD RN OPENING RECEIVED PATIENT VENT TRACH DEPENDENT. STABLE. NO SOB, DIFFICULTY BREATHING OR PAIN AT THIS TIME. COLOSTOMY INTACT. VILLA INTACT DRAINING WELL. ALL NEEDS ASSESSED AND MET. PATIENT BED LOWERED AND LOCKED, RAILS UPX3 FOR SAFETY AND WILL ROUND Q1H OR LESS PER NEEDS
[2017-04-05 07:28] LABS: CALCIUM, SERUM 10.6 mg/dL (8.5-10.1); CREATININE 5.9 mg/dL (0.6-1.3); PHOSPHORUS 2.5 mg/dL (2.5-4.9); POTASSIUM 3.9 mmol/L (3.5-5.1)
[2017-04-05 08:00] VITALS: BP 99/58
[2017-04-05] MEDS: ESCITALOPRAM OXALATE (10 MG) 10 MG TABLET GT SCH (08:21)
[2017-04-05] MEDS: VIT B CMPLX 3/FA/VIT C/BIOTIN 1 TAB TABLET GT SCH (08:21)
[2017-04-05] MEDS: CHLORHEXIDINE GLUCONATE 15 ML UDC MM SCH ×2 (08:21→20:37)
[2017-04-05] MEDS: LEVETIRACETAM SOL (5 ML) 100 MG/ML UDC GT SCH ×2 (08:21→16:54)
[2017-04-05] MEDS: GABAPENTIN 300 MG CAPSULE GT SCH ×3 (08:21→16:55)
[2017-04-05] MEDS: SUCRALFATE 1 G/10 ML UDC GT SCH ×4 (08:21→21:33)
[2017-04-05] MEDS: SEVELAMER CARBONATE 0.8 GM POWD.PACK GT SCH ×3 (08:21→16:54)
[2017-04-05] MEDS: MIDODRINE HCL (5MG) 5 MG TABLET GT SCH ×3 (08:21→16:54)
[2017-04-05] MEDS: Z GUARD REMEDY 2 OZ OINT TP SCH (08:22)
[2017-04-05] MEDS: RENAL NOVASOURCE 1,000 ML BOTTLE GT PRN (08:29)
[2017-04-05] MEDS: ACETAMINOPHEN 325 MG TABLET PO PRN (09:10)
[2017-04-05 12:00] VITALS: BP 108/53
[2017-04-05 16:00] VITALS: BP 101/48
--- NOTE | 2017-04-05 18:48 | NUR ---
RAILWAY PATROL OFFICER CLOSING PATIENT STABLE. SKIN CARE COMPLETED AGAIN AND ALL DUE MEDS GIVEN AND ALL NEEDS MET. PATIENT DENIES SOB, DIFFICULTY BREATHING IOR PAIN. PATIENT RESTING COMFORTABLY AT THIS TIME. NEEDS IN REACH. BED LOWERED AND LOCKED, RAILS UPX3 FOR SAFETY AND WILL ENDORSE CARE TO RN FOR CLAUDIA.
--- NOTE | 2017-04-05 19:42 | NUR ---
PT RCVD ON MECH VENT WITH NOTED SETTINGS. VENT PLUGGED INTO RED OUTLET,VENT ALARM WORKING AND AUDIBLE, YEAST FERMENTATION ATTENDANT CUFF CHECKED,SUCTIONED MODERATE AMOUNT OF YELLOW THICK SECRETIONS. NO RESP DISTRESS NOTED AT THIS TIME. AMBU BAG AT BEDSIDE, WILL CONTINUE TO MONITOR THE PT.
--- NOTE | 2017-04-05 19:49 | NUR ---
RN OPENING NOTE RECEIVED PATIENT IN THE BED, AWAKE VENT TRACH DEPENDENT. STABLE. NO SOB, DIFFICULTY BREATHING OR PAIN AT THIS TIME. COLOSTOMY INTACT. VILLA INTACT DRAINING WELL. NO S/S OF BLEEDING NOTED. . PATIENT BED LOWERED AND LOCKED, RAILS UPX3 FOR SAFETY AND WILL ROUND Q1H OR LESS PER NEEDS
[2017-04-05 20:00] VITALS: BP 108/62
[2017-04-05] MEDS: MEROPENEM 500 MG in IV NS 0.9% 50 ML IV SCH (20:35)
[2017-04-06] VITALS: BP 113/51
[2017-04-06 04:00] VITALS: BP 91/54
[2017-04-06] MEDS: METOCLOPRAMIDE HCL 10 MG/2 ML VIAL IV SCH ×3 (05:55→17:35)
[2017-04-06] MEDS: BLOOD SUGAR DIAGNOSTIC 1 EACH STRIP IN SCH ×4 (05:55→23:00)
[2017-04-06] MEDS: METRONIDAZOLE 500 MG TABLET PO SCH ×2 (05:55→12:20)
[2017-04-06] MEDS: ONDANSETRON HCL/PF 4 MG/2 ML VIAL IV PRN (06:17)
[2017-04-06] MEDS: PANTOPRAZOLE 40 MG VIAL IV SCH ×2 (07:00→17:35)
--- NOTE | 2017-04-06 07:30 | NUR ---
BARGEMAN AM NOTES RECEIVED PATIENT IN THE BED, AWAKE/ORIENTED, SHILEY 6, VENT TRACH DEPENDENT. STABLE. NO SOB, DIFFICULTY BREATHING OR PAIN AT THIS TIME. COLOSTOMY INTACT. NO SIGNS OF PAIN OR DISCOMFORT, TELEMETRY READS SR HR 78. TAHIR MIDLINE FLUSHES WELL, STIE CLEAR. VILLA INTACT DRAINING WELL, VERY SMALL AMOUNT OF URINE. NO S/S OF BLEEDING NOTED. NOVASOURCE GT FEEDING AT 40 ML/HR. O RESIDUAL. PATIENT BED LOWERED AND LOCKED, SIDERAILS UPX3 FOR SAFETY. WILL CONTINUE TO MONITOR.
[2017-04-06 07:32] LABS: CALCIUM, SERUM 11.1 mg/dL (8.5-10.1); CREATININE 7.3 mg/dL (0.6-1.3); MAGNESIUM 2.7 mg/dL (1.8-2.4); PHOSPHORUS 2.8 mg/dL (2.5-4.9); POTASSIUM 4.1 mmol/L (3.5-5.1)
--- NOTE | 2017-04-06 07:53 | NUR ---
MATERIAL HAULER CLOSING NO SIGNIFICANT CHANGES DURING THE SHIFT. ALL DUE MEDS GIVEN AND ALL NEEDS MET. PATIENT DENIES SOB, DIFFICULTY BREATHING OR PAIN. PATIENT RESTING COMFORTABLY AT THIS TIME. NEEDS IN REACH. BED LOWERED AND LOCKED, RAILS UPX3 FOR SAFETY AND WILL ENDORSE CARE TO RN FOR CLAUDIA.
[2017-04-06 08:00] VITALS: BP 103/64
[2017-04-06 08:54] LABS: BASOPHILS % (AUTO) 0.2 % (0.0-2.0); EOSINOPHILS # (AUTO) 0.6 /CMM (0.0-0.7); EOSINOPHILS % (AUTO) 2.6 % (0.0-6.0); HEMATOCRIT 28 % (39-51); HEMOGLOBIN 8.9 g/dL (13.5-17.5); LYMPHOCYTES # (AUTO) 1.1 /CMM (0.8-4.8); LYMPHOCYTES % (AUTO) 4.8 % (20.0-44.0); MEAN CORPUSCULAR HEMOGLOBIN 30 PG (26.0-33.0); MEAN CORPUSCULAR HGB CONC 32 g/dl (31.0-36.0); MEAN CORPUSCULAR VOLUME 96 fL (80-96); MONOCYTES # (AUTO) 2.1 /CMM (0.1-1.30); MONOCYTES % (AUTO) 9.6 % (2.0-12.0); NEUTROPHILS # (AUTO) 18.5 /CMM (1.8-8.9); NEUTROPHILS % (AUTO) 82.8 % (43.0-81.0); PLATELET COUNT (AUTO) 574 /CMM (150-450); RDW COEFFICIENT OF VARIATION 19.6 (11.5-15.0); RED BLOOD CELL COUNT(AUTO) 2.93 MIL/uL (4.5-6.0)
[2017-04-06] MEDS: SUCRALFATE 1 G/10 ML UDC GT SCH ×4 (08:57→23:00)
[2017-04-06] MEDS: LEVETIRACETAM SOL (5 ML) 100 MG/ML UDC GT SCH ×2 (08:57→16:34)
[2017-04-06] MEDS: SEVELAMER CARBONATE 0.8 GM POWD.PACK GT SCH ×3 (08:58→16:34)
[2017-04-06] MEDS: CHLORHEXIDINE GLUCONATE 15 ML UDC MM SCH ×2 (08:58→20:38)
[2017-04-06] MEDS: GABAPENTIN 300 MG CAPSULE GT SCH ×3 (08:59→16:35)
[2017-04-06] MEDS: ESCITALOPRAM OXALATE (10 MG) 10 MG TABLET GT SCH (08:59)
[2017-04-06] MEDS: Z GUARD REMEDY 2 OZ OINT TP SCH (09:00)
[2017-04-06] MEDS: MIDODRINE HCL (5MG) 5 MG TABLET GT SCH ×3 (09:00→16:35)
[2017-04-06] MEDS: VIT B CMPLX 3/FA/VIT C/BIOTIN 1 TAB TABLET GT SCH (09:00)
[2017-04-06 09:26] LABS: WHITE BLOOD COUNT (AUTO) 22.3 K/uL (4.3-11.0)
--- NOTE | 2017-04-06 09:30 | NUR ---
SOFTWARE SUPPORT REPRESENTATIVE NOTES ADMINISTERED DUE MEDS.
[2017-04-06 12:00] VITALS: BP 129/75
--- NOTE | 2017-04-06 12:29 | NUR ---
RN NOTES ACCUCHECK DONE. BS 131 MG/DL. NO INSULIN COVERAGE AT THIS TIME.
--- NOTE | 2017-04-06 14:30 | NUR ---
RN NOTES HD CATH PLACED BY DR. DOREEN SERRANO. CDI DRESSING. NO BLEEDING.
--- NOTE | 2017-04-06 15:49 | NUR ---
RN NOTES PM CARE DONE. COLOSTOMY BAG CHANGED. WOUND TREATMENT DONE.
[2017-04-06 16:00] VITALS: BP 122/67
[2017-04-06] MEDS: ACETAMINOPHEN 325 MG TABLET PO PRN (16:36)
--- NOTE | 2017-04-06 17:40 | NUR ---
RN NOTES ACCUCHECK DONE. BS 107 MG/DL. NO INSULIN COVERAGE AT THIS TIME. HD STARTED AT 1700.
--- NOTE | 2017-04-06 18:57 | NUR ---
GLASS CURVATURE GAUGER CLOSING NOTES PATIENT RESTING COMFORTABLY. AWAKE/ORIENTED, SHILEY 6, VENT TRACH DEPENDENT. STABLE. NO SOB, DIFFICULTY BREATHING OR PAIN AT THIS TIME. COLOSTOMY INTACT. NO SIGNS OF PAIN OR DISCOMFORT, TELEMETRY READS SR HR 80s. TAHIR MIDLINE FLUSHES WELL, SITE CLEAR. VILLA INTACT DRAINING WELL, VERY SMALL AMOUNT OF URINE. ONGOING HD. S/P LEFT GROIN HD CATHETER PLACEMENT BY DR. DOREEN SERRANO. NO S/S OF BLEEDING NOTED. NOVASOURCE GT FEEDING AT 40 ML/HR. O RESIDUAL. PATIENT BED LOWERED AND LOCKED, SIDERAILS UPX3 FOR SAFETY. ALL NEEDS MET. NO OTHER SIGNIFICANT CHANGE IN CONDITION. TURNED AND REPOSITIONED Q2H. WILL ENDORSE TO NEXT SHIFT FOR CLAUDIA.
--- NOTE | 2017-04-06 19:41 | NUR ---
RN OPENING NOTE RECEIVED PATIENT IN THE BED AFTER HD (1L WAS REMOVED) NO DISTRESS NOTED, AWAKE, ALERT, RIGHT UPPER MIDLINE FLUSHES WELL, NO S/S OF BLEEDING NOTED, SIDE RAILS UP X 2, CALL LIGHT WITHIN REACH, BED IN THE LOW POSITION, WILL CONTINUE TO MONITOR PATIENT
[2017-04-06 20:00] VITALS: BP 97/64
[2017-04-07] VITALS: BP 122/66
[2017-04-07] MEDS: METOCLOPRAMIDE HCL 10 MG/2 ML VIAL IV SCH ×5 (00:20→23:40)
[2017-04-07] MEDS: ACETAMINOPHEN 325 MG TABLET PO PRN (00:20)
[2017-04-07 04:00] VITALS: BP 93/56
[2017-04-07] MEDS: PANTOPRAZOLE 40 MG VIAL IV SCH ×2 (05:14→17:00)
[2017-04-07] MEDS: BLOOD SUGAR DIAGNOSTIC 1 EACH STRIP IN SCH ×4 (05:15→23:06)
[2017-04-07] MEDS: RENAL NOVASOURCE 1,000 ML BOTTLE GT PRN (05:22)
--- NOTE | 2017-04-07 07:03 | NUR ---
RN CLOSING NOTE PATIENT IN THE BED. AWAKE/ORIENTED TO NAME AND PLACE , SHILEY 6, VENT TRACH DEPENDENT. STABLE. NO SOB, DIFFICULTY BREATHING OR PAIN AT THIS TIME. COLOSTOMY BAG IS INTACT. NO SIGNS OF PAIN OR DISCOMFORT NOTED, TELEMETRY READING SR HR 78s. TAHIR MIDLINE FLUSHES WELL WITH GOOD BLOOD RETURN, SITE CLEAR. VILLA INTACT DRAINING WELL, VERY SMALL AMOUNT OF URINE 10 CC ONLY, LAB COLLECTED BLOOD THIS MORNING, WILL ENDORSE TO AM NURSE TO FOLLOW UP, LEFT GROIN HD CATHETER PLACEMENT. NO S/S OF BLEEDING NOTED. NOVASOURCE GT FEEDING AT 40 ML/HR. O RESIDUAL. PATIENT BED LOWERED AND LOCKED, SIDERAILS UPX3 FOR SAFETY. ALL NEEDS MET. NO OTHER SIGNIFICANT CHANGE IN CONDITION. TURNED AND REPOSITIONED Q2H. WILL ENDORSE TO AM NURSE FOR CLAUDIA.
--- NOTE | 2017-04-07 07:30 | NUR ---
CANDY PACKER AM NOTES RECEIVED PATIENT IN THE BED, AWAKE/ORIENTED, SHILEY 6, VENT TRACH DEPENDENT. STABLE. NO SOB, DIFFICULTY BREATHING OR PAIN AT THIS TIME. COLOSTOMY INTACT. NO SIGNS OF PAIN OR DISCOMFORT, TELEMETRY READS SR HR 75. TAHIR MIDLINE FLUSHES WELL, STIE CLEAR. VILLA INTACT DRAINING WELL, VERY SMALL AMOUNT OF URINE. NO S/S OF BLEEDING NOTED. NOVASOURCE GT FEEDING AT 40 ML/HR. O RESIDUAL. PATIENT BED LOWERED AND LOCKED, SIDERAILS UPX3 FOR SAFETY. WILL CONTINUE TO MONITOR.
[2017-04-07 08:00] VITALS: BP_SYST 149; BP_SYST 98; BP_DIAS 47; BP_DIAS 53
[2017-04-07] MEDS: SUCRALFATE 1 G/10 ML UDC GT SCH ×4 (08:17→22:25)
[2017-04-07] MEDS: ESCITALOPRAM OXALATE (10 MG) 10 MG TABLET GT SCH (08:18)
[2017-04-07] MEDS: SEVELAMER CARBONATE 0.8 GM POWD.PACK GT SCH ×3 (08:18→16:51)
[2017-04-07] MEDS: LEVETIRACETAM SOL (5 ML) 100 MG/ML UDC GT SCH ×2 (08:18→16:51)
[2017-04-07] MEDS: CHLORHEXIDINE GLUCONATE 15 ML UDC MM SCH ×2 (08:18→21:00)
[2017-04-07] MEDS: GABAPENTIN 300 MG CAPSULE GT SCH ×3 (08:18→16:51)
[2017-04-07] MEDS: MIDODRINE HCL (5MG) 5 MG TABLET GT SCH ×3 (08:18→16:52)
[2017-04-07] MEDS: VIT B CMPLX 3/FA/VIT C/BIOTIN 1 TAB TABLET GT SCH (08:18)
[2017-04-07 08:19] LABS: CALCIUM, SERUM 10.4 mg/dL (8.5-10.1); CREATININE 4.5 mg/dL (0.6-1.3); MAGNESIUM 2.4 mg/dL (1.8-2.4); PHOSPHORUS 2.4 mg/dL (2.5-4.9)
[2017-04-07] MEDS: Z GUARD REMEDY 2 OZ OINT TP SCH (08:19)
[2017-04-07 08:46] LABS: BASOPHILS # (AUTO) 0.1 /CMM (0.0-0.2); BASOPHILS % (AUTO) 0.4 % (0.0-2.0); EOSINOPHILS # (AUTO) 0.5 /CMM (0.0-0.7); HEMATOCRIT 26 % (39-51); LYMPHOCYTES # (AUTO) 0.5 /CMM (0.8-4.8); LYMPHOCYTES % (AUTO) 3.1 % (20.0-44.0); MEAN CORPUSCULAR HEMOGLOBIN 30 PG (26.0-33.0); MEAN CORPUSCULAR HGB CONC 31 g/dl (31.0-36.0); MEAN CORPUSCULAR VOLUME 97 fL (80-96); MONOCYTES # (AUTO) 2.1 /CMM (0.1-1.30); MONOCYTES % (AUTO) 12.1 % (2.0-12.0); NEUTROPHILS # (AUTO) 14.2 /CMM (1.8-8.9); NEUTROPHILS % (AUTO) 81.4 % (43.0-81.0); PLATELET COUNT (AUTO) 489 /CMM (150-450); RED BLOOD CELL COUNT(AUTO) 2.66 MIL/uL (4.5-6.0); WHITE BLOOD COUNT (AUTO) 17.4 K/uL (4.3-11.0)
--- NOTE | 2017-04-07 09:30 | NUR ---
HOTEL AND DINING ROOM CASHIER NOTES ADMINISTERED DUE MEDS.
--- NOTE | 2017-04-07 10:15 | NUR ---
[employer] NOTES HD COMPLETED. O OUTPUT. CLEANSING ONLY.
[2017-04-07 12:00] VITALS: BP 108/62
--- NOTE | 2017-04-07 12:22 | NUR ---
RN NOTES ACCUCHECK DONE. BS 94 MG/DL. NO INSULIN COVERAGE AT THIS TIME.
--- NOTE | 2017-04-07 12:45 | NUR ---
RECYCLING ASSISTANT NOTE STARTED AMIKIN IV ORDERED POST HD.
--- NOTE | 2017-04-07 15:20 | NUR ---
CHEMICAL PLANT OPERATOR SUPERVISOR NOTES DR. Whitney SALDANA NOTIFIED ABOUT PHOS LEVEL 2.4. NO NEW ORDERS.
[2017-04-07 16:00] VITALS: BP_SYST 104; BP_DIAS 50; BP_DIAS 59
--- NOTE | 2017-04-07 17:00 | NUR ---
RN NOTES ACCUCHECK DONE. BS 139 MG/DL. NO INSULIN COVERAGE AT THIS TIME.
--- NOTE | 2017-04-07 17:18 | NUR ---
RT NOTE: PATIENT RECEIVED TRACHED ON ESPRIT VENT. ALARMS VERIFIED AND AUDIBLE. SUCTIONED MODERATE- LARGE AMOUNT OF THICK CARIAS SECRETIONS. VENT PLUGGED INTO RED OUTLET. AMBU BAG AT [facility].
--- NOTE | 2017-04-07 19:05 | NUR ---
MOLDED CANDLES WICKER OPENING NOTES RECEIVED REPORT FROM BRI MICHELLE. PATIENT A/A/O X2, ABLE TO MAKE SOME NEEDS KNOWN. TRACH INTACT W/ VENT SETTINGS AC 16, TV 500, FIO2 40%, PEEP 0. NO S/S OF RESPIRATORY DISTRESS. ON TELE SINUS RHYTHM IN THE 70S. RIGHT UPPER ARM MIDLINE INTACT & PATENT W/ DRESSING CDI ON TKO. LEFT GROIN HD CATH INTACT W/ DRESSING CDI. NO COMPLICATIONS NOTED. COLOSTOMY BAG IN PLACE & SUPRAPUBIC CATH DRAINING LITTLE YELLOW URINE. G-TUBE FLUSHING WELL & TOLERATING GTF @ THIS TIME. NO RESIDUALS NOTED. DENIES ANY PAIN OR DISCOMFORT @ THIS TIME. SAFETY MEASURES IN PLACE W/ SIDE RAILS UP, BED LOCKED & IN LOWEST POSITION & CALL LIGHT WITHIN REACH. WILL CONTINUE TO MONITOR.
--- NOTE | 2017-04-07 19:18 | NUR ---
PARAEDUCATOR CLOSING NOTES PATIENT RESTING COMFORTABLY. AWAKE/ORIENTED, SHILEY 6, VENT TRACH DEPENDENT. STABLE. NO SOB, DIFFICULTY BREATHING OR PAIN AT THIS TIME. COLOSTOMY INTACT. NO SIGNS OF PAIN OR DISCOMFORT, TELEMETRY READS SR HR 80s. TAHIR MIDLINE FLUSHES WELL, SITE CLEAR. VILLA INTACT DRAINING WELL, VERY SMALL AMOUNT OF URINE. ONGOING HD. S/P LEFT GROIN HD CATHETER IN SITU, CDI DRESSING. NOVASOURCE GT FEEDING AT 40 ML/HR. O RESIDUAL. PATIENT BED LOWERED AND LOCKED, SIDERAILS UPX3 FOR SAFETY. ALL NEEDS MET. NO OTHER SIGNIFICANT CHANGE IN CONDITION. TURNED AND REPOSITIONED Q2H. WILL ENDORSE TO NEXT SHIFT FOR CLAUDIA.
--- NOTE | 2017-04-07 19:40 | NUR ---
RT RECEIVED PT TRACH ON VENT WITH NOTED VENT SETTINGS. VENT ALARMS CHECKED AND AUDIBLE. VENT PLUGGED IN RED OUTLET. SERVER DEVELOPER DONE AND TRACH IS SECURE. AMBU BAG NOTED HOB. SX WITH MOD THK WHITE SECRETIONS. NO RESP DISTRESS NOTED, WILL CONTINUE TO MONITOR T/O SHIFT.
[2017-04-07 20:00] VITALS: BP 103/68
[2017-04-07] MEDS: ZOLPIDEM TARTRATE 5 MG TABLET GT PRN (23:06)
[2017-04-07] MEDS: INSULIN ASPART HUMALOG/NOVOLOG 100 UNIT/ML CARTRIDGE SQ PRN (23:07)
[2017-04-08] VITALS: BP 109/62
[2017-04-08 04:00] VITALS: BP 103/69
[2017-04-08] MEDS: RENAL NOVASOURCE 1,000 ML BOTTLE GT PRN (04:34)
[2017-04-08] MEDS: METOCLOPRAMIDE HCL 10 MG/2 ML VIAL IV SCH ×4 (05:24→23:11)
[2017-04-08] MEDS: PANTOPRAZOLE 40 MG VIAL IV SCH ×2 (05:25→17:32)
[2017-04-08] MEDS: INSULIN ASPART HUMALOG/NOVOLOG 100 UNIT/ML CARTRIDGE SQ PRN (05:25)
[2017-04-08] MEDS: BLOOD SUGAR DIAGNOSTIC 1 EACH STRIP IN SCH ×4 (05:25→23:09)
[2017-04-08 07:20] LABS: CALCIUM, SERUM 10.3 mg/dL (8.5-10.1); CREATININE 3.9 mg/dL (0.6-1.3); POTASSIUM 4.2 mmol/L (3.5-5.1)
[2017-04-08 08:00] VITALS: BP 102/52
--- NOTE | 2017-04-08 08:00 | NUR ---
TELE1/RN AM SHIFT INITIAL NOTES RECEIVED PT ASLEEP IN BED, AROUSEABLE, PT A/O X 1-2, DENIES ANY SYMPTOMS. NO ACUTE CHANGE OF CONDITION, NO ACTIVE BLEEDING. ON VENTILATOR WITH RATES SET PRESCRIBED, SATURATING @ 100%, LUNG SOUNDS CLEAR, SUCTIONED FOR AIRWAY CLEARANCE. ON TELE MONITORING NOTED WITH SINUS RHYTHM, HR 84. ON GOING GTF @ 40CC/HR, NO GASTRIC RESIDUAL NOTED, FLUSHED PATENT. SUPRA PUBIC CATHETER INTACT NOTED WITH DARK YELLOW URINE OUTPUT. COLOSTOMY BAG IN PLACED. PT IS COMFORTABLE. SCHEDULED AM MEDS TO BE GIVEN. CL WITHIN REACHED AND SAFETY MAINTAINED. ON GOING MONITORING.
[2017-04-08] MEDS: SEVELAMER CARBONATE 0.8 GM POWD.PACK GT SCH ×3 (09:22→17:31)
[2017-04-08] MEDS: ESCITALOPRAM OXALATE (10 MG) 10 MG TABLET GT SCH (09:22)
[2017-04-08] MEDS: GABAPENTIN 300 MG CAPSULE GT SCH ×3 (09:22→17:31)
[2017-04-08] MEDS: LEVETIRACETAM SOL (5 ML) 100 MG/ML UDC GT SCH ×2 (09:22→17:31)
[2017-04-08] MEDS: SUCRALFATE 1 G/10 ML UDC GT SCH ×4 (09:22→22:07)
[2017-04-08] MEDS: VIT B CMPLX 3/FA/VIT C/BIOTIN 1 TAB TABLET GT SCH (09:23)
[2017-04-08] MEDS: ACETAMINOPHEN 325 MG TABLET PO PRN (09:23)
[2017-04-08] MEDS: MIDODRINE HCL (5MG) 5 MG TABLET GT SCH ×3 (09:23→17:32)
[2017-04-08] MEDS: Z GUARD REMEDY 2 OZ OINT TP SCH (09:24)
--- NOTE | 2017-04-08 09:30 | NUR ---
TELE1/RN ROUNDS - DR. GONCALVES PT SEEN & EXAMINED BY DR. GONCALVES. NO NEW ORDERS RECEIVED AT THIS TIME. MONITORING CONTINUED.
[2017-04-08] MEDS: CHLORHEXIDINE GLUCONATE 15 ML UDC MM SCH ×2 (09:32→21:32)
[2017-04-08 12:00] VITALS: BP_SYST 120; BP_SYST 125; BP_SYST 141; BP_DIAS 33; BP_DIAS 64; BP_DIAS 93
[2017-04-08 16:00] VITALS: BP 127/49
--- NOTE | 2017-04-08 18:34 | NUR ---
TELE1/PROPELLER ENGINEER HELD CALLED [facility], PER RN ROSSY CARROLL, PT HAS NO ROOM TO BE ADMITTED. RN EMBEDDED MADE AWARE, SAID TO PROCESS DISCHARGE TOMORROW, CHARGE NURSE MADE AWARE.
--- NOTE | 2017-04-08 19:29 | NUR ---
RN OPENING NOTES RECEIVED REPORT FROM AM RN. PATIENT ALERT/ORIENTED TO NAME AND PLACE, ABLE TO COMMUNICATE. TRACH INTACT W/ VENT SETTINGS AC 16, TV 500, FIO2 40%, PEEP 0. NO S/S OF RESPIRATORY DISTRESS NOTED. ON FONDANT MACHINE OPERATOR- SR. RIGHT UPPER ARM MIDLINE INTACT & PATENT, GOOD FLUSHING. LEFT GROIN HD CATH INTACT W/ DRESSING . NO COMPLICATIONS NOTED. COLOSTOMY BAG IN PLACE & SUPRAPUBIC CATH DRAINING LITTLE YELLOW, GREEN URINE. G-TUBE FLUSHING WELL & TOLERATING GTF @ THIS TIME. NO RESIDUALS NOTED. PATIENT DENIES PAIN AND DISCOMFORT. SIDE RAILS UP X 2, BED LOCKED & IN LOWEST POSITION & CALL LIGHT WITHIN REACH, WILL CONTINUE TO MONITOR
--- NOTE | 2017-04-08 19:30 | NUR ---
TELE1/RN AM SHIFT END NOTES NO ACUTE CHANGE OF CONDITION NOTED DURING THE SHIFT. ALL NEEDS MET. PT ENDORSED TO PM NURSE TO CONTINUE CARE. CL WITHIN REACHED AND SAFETY MAINTAINED.
[2017-04-08 20:00] VITALS: BP 127/49
--- NOTE | 2017-04-08 20:25 | NUR ---
RECEIVED PT ON VENT SUPPORT, PT STABLE NO SOB OR DISTRESS NOTED, WILL CONTINUE MONITORING PER MDS ORDERS. Addendum: 04/08/17 at 2025 by NAHED BELL RT Amended: Links added.
[2017-04-08] MEDS: ONDANSETRON HCL/PF 4 MG/2 ML VIAL IV PRN (22:07)
[2017-04-09] VITALS: BP 107/58
[2017-04-09 04:00] VITALS: BP 121/67
[2017-04-09] MEDS: METOCLOPRAMIDE HCL 10 MG/2 ML VIAL IV SCH ×2 (06:46→12:25)
[2017-04-09] MEDS: PANTOPRAZOLE 40 MG VIAL IV SCH (06:46)
[2017-04-09] MEDS: BLOOD SUGAR DIAGNOSTIC 1 EACH STRIP IN SCH ×2 (06:47→12:06)
--- NOTE | 2017-04-09 07:40 | NUR ---
FRUIT AND VEGETABLE CLASSER CLOSING NOTES PATIENT RESTING COMFORTABLY. AWAKE/ORIENTED, ONGOING DIALYSIS, SHILEY 6, VENT TRACH DEPENDENT. STABLE. NO SOB, DIFFICULTY BREATHING OR PAIN NOTED. COLOSTOMY INTACT. NO SIGNS OF PAIN OR DISCOMFORT, TELEMETRY READS SR HR 70s. TAHIR MIDLINE FLUSHES WELL, SITE CLEAR. VILLA INTACT DRAINING WELL, VERY SMALL AMOUNT OF URINE NOTED-10ML . S/P LEFT GROIN HD CATHETER. NOVASOURCE GT FEEDING AT 40 ML/HR. O RESIDUAL. PATIENT BED LOWERED AND LOCKED, SIDERAILS [id number] SAFETY. ALL NEEDS ATTENDED. NO OTHER SIGNIFICANT CHANGE IN CONDITION. TURNED AND REPOSITIONED Q2H. WILL ENDORSE TO NEXT SHIFT TO CONTINUE CARE.
--- NOTE | 2017-04-09 07:49 | NUR ---
RT PT RECEIVED TRACHED ON THE VENT WITH NOTED SETTINGS. PT IS AWAKE AND ALERT. VENT ALARMS ARE SET AND AUDIBLE WITH BVM BY BEDSIDE. FURNITURE UPHOLSTERER APPRENTICE CUFF PRESSURE NOTED. VENT IS PLUGGED INTO RED OUTLET. PT REFUSED SX AT THIS TIME. NO RESPIRATORY DISTRESS NOTED AT THIS TIME, WILL CONTINUE TO MONITOR. Addendum: 04/09/17 at 0825 by MARAL CANCHOLA RT Amended: Links added.
[2017-04-09 08:00] VITALS: BP 69/35
[2017-04-09] MEDS: CHLORHEXIDINE GLUCONATE 15 ML UDC MM SCH (09:00)
[2017-04-09] MEDS: Z GUARD REMEDY 2 OZ OINT TP SCH (09:00)
[2017-04-09 09:14] LABS: CALCIUM, SERUM 9.3 mg/dL (8.5-10.1); CREATININE 2.2 mg/dL (0.6-1.3)
[2017-04-09 09:51] LABS: POTASSIUM 2.5 mmol/L (3.5-5.1)
[2017-04-09] MEDS: VIT B CMPLX 3/FA/VIT C/BIOTIN 1 TAB TABLET GT SCH (10:11)
[2017-04-09] MEDS: ESCITALOPRAM OXALATE (10 MG) 10 MG TABLET GT SCH (10:12)
[2017-04-09] MEDS: MIDODRINE HCL (5MG) 5 MG TABLET GT SCH ×3 (10:13→16:52)
[2017-04-09] MEDS: GABAPENTIN 300 MG CAPSULE GT SCH ×2 (10:14→13:45)
[2017-04-09] MEDS: SEVELAMER CARBONATE 0.8 GM POWD.PACK GT SCH ×2 (10:14→13:45)
[2017-04-09] MEDS: LEVETIRACETAM SOL (5 ML) 100 MG/ML UDC GT SCH (10:16)
[2017-04-09] MEDS: SUCRALFATE 1 G/10 ML UDC GT SCH ×2 (10:21→13:44)
[2017-04-09] MEDS: RENAL NOVASOURCE 1,000 ML BOTTLE GT PRN (10:30)
[2017-04-09] MEDS ORDERED: POTASSIUM CHLORIDE 20 MEQ POWDER PACKET GT SCH (11:00)
[2017-04-09 12:00] VITALS: BP 84/52
[2017-04-09] MEDS ORDERED: POTASSIUM CHLORIDE 20 MEQ POWDER PACKET GT ONE (12:30)
[2017-04-09 15:38] LABS: CREATININE 3.6 mg/dL (0.6-1.3); POTASSIUM 5.4 mmol/L (3.5-5.1)
[2017-04-09 16:00] VITALS: BP 94/51
[2017-04-09 16:52] VITALS: BP 85/57
--- NOTE | 2017-04-09 17:15 | NUR ---
RN NOTES: PATIENT DISCHARGED TO [facility] PER MD ORDERS. POTASSIUM LEVELS OF 2.5 , REPLACED WITH [address] DOREEN SERRANO'S ORDERS. REDRAW OF POTASSIUM NOTED TO BE 5.4, DR DOREEN SERRANO NOTIFIED OF BMP RESULTS. ORDERED TO DISCHARGE PATIENT. PATIENT'S BP NOTED TO BE LOW THIS MORNING DURING DILAYSIS, DILAYSIS OUTPUT 0 TODAY DUE TO LOW BP. NO SIGNS OF DISTRESS NOTED ON PATIENT. PATIENT DENIED PAIN, DIZZINESS, CONTACTED [facility] X4, UNABLE TO GIVE REPORT, TRANSPORTERS ABLE TO SPEAK WITH RECEPTIO WHO INFORMED US THAT A BED IS AVAILABLE AND REPORT WAS GIVEN YESTERDAY. BELONGINGS GIVEN TO PATIENT, PATIENT VILLA CATHETER ON SUPRAPUBIC DRAINING YELLOW CLEAR URINE, COLOSTOMY CHANGED, TAHIR MIDDLINE PATENT AND INTACT FOR IV ATB ORDERS THAT ARE TO BE CONTINUED. MED RECON LIST SENT WITH PATIENT. HD CATH IN LEFT GROIN INTACT. VS WNL UPON DISCHARGED WITH BP 93/57--DUE TO PATIENTS HISTORY OF HYPOTENSTION. PATIENT VERBALIZED EXICTEMENT TO GO TO [facility] . PATIENT REFUSED SKIN PICTURES--TAKEN 04/08 MIDODRINE AT 1300 HELD DUE TO BP OF 130/90
[2017-04-10] MEDS ORDERED: POTASSIUM CHLORIDE 20 MEQ POWDER PACKET GT SCH (09:00)
== END 2017-04-09 17:25 | DRG 711 ==
LOC: ER 20:26 → TELE1 22:32 → ICU 03-26 16:05 → TELE-TD 03-28 20:30 → TELE1 04-02 13:53 → ICU 04-02 22:23 → TELE-TD 04-04 16:33 → TELE1 04-05 10:56
PROVIDERS: ADMIT Internal Medicine Nephrology; ATTEND Internal Medicine Nephrology
PROC: 30233N1 Transfusion of Nonautologous Red Blood Cells into Peripheral Vein, Percutaneous Approach (ICD-10-PCS; principal; 2017-03-23)
PROC: 5A1955Z Respiratory Ventilation, Greater than 96 Consecutive Hours (ICD-10-PCS; principal; 2017-03-23)
PROC: 05H533Z Insertion of Infusion Device into Right Subclavian Vein, Percutaneous Approach (ICD-10-PCS; 2017-03-24)
PROC: B546ZZA Ultrasonography of Right Subclavian Vein, Guidance (ICD-10-PCS; 2017-03-24)
PROC: 5A1D70Z Performance of Urinary Filtration, Intermittent, Less than 6 Hours Per Day (ICD-10-PCS; 2017-03-25)
PROC: 0DD58ZX Extraction of Esophagus, Via Natural or Artificial Opening Endoscopic, Diagnostic (ICD-10-PCS; 2017-03-30)
PROC: 0DW64UZ Revision of Feeding Device in Stomach, Percutaneous Endoscopic Approach (ICD-10-PCS; 2017-03-30)
PROC: 0JHP3XZ Insertion of Tunneled Vascular Access Device into Left Lower Leg Subcutaneous Tissue and Fascia, Percutaneous Approach (ICD-10-PCS; 2017-04-06)
PROC: B54CZZA Ultrasonography of Left Lower Extremity Veins, Guidance (ICD-10-PCS; 2017-04-06)
PROC: 06HN33Z Insertion of Infusion Device into Left Femoral Vein, Percutaneous Approach (ICD-10-PCS; 2017-04-06)
DX: T80.211A Bloodstream infection due to central venous catheter, initial encounter (principal); Z99.11 Dependence on respirator [ventilator] status; J96.11 Chronic respiratory failure with hypoxia; J84.10 Pulmonary fibrosis, unspecified; A41.9 Sepsis, unspecified organism; Z93.0 Tracheostomy status; J44.9 Chronic obstructive pulmonary disease, unspecified; K22.10 Ulcer of esophagus without bleeding; N18.6 End stage renal disease; E11.43 Type 2 diabetes mellitus with diabetic autonomic (poly)neuropathy; N39.0 Urinary tract infection, site not specified; D63.1 Anemia in chronic kidney disease; B96.89 Other specified bacterial agents as the cause of diseases classified elsewhere; K76.0 Fatty (change of) liver, not elsewhere classified; I13.11 Hypertensive heart and chronic kidney disease without heart failure, with stage 5 chronic kidney disease, or end stage renal disease; E11.22 Type 2 diabetes mellitus with diabetic chronic kidney disease; K31.84 Gastroparesis; Z99.2 Dependence on renal dialysis; Z93.3 Colostomy status; Z93.2 Ileostomy status; Z93.1 Gastrostomy status; Z90.3 Acquired absence of stomach [part of]; Z87.19 Personal history of other diseases of the digestive system; Z87.11 Personal history of peptic ulcer disease; Z87.01 Personal history of pneumonia (recurrent); Z86.14 Personal history of Methicillin resistant Staphylococcus aureus infection; Z79.899 Other long term (current) drug therapy; Q05.9 Spina bifida, unspecified; G82.20 Paraplegia, unspecified; M41.9 Scoliosis, unspecified; R13.10 Dysphagia, unspecified; Z88.0 Allergy status to penicillin; Z88.2 Allergy status to sulfonamides; Z91.041 Radiographic dye allergy status; Z79.4 Long term (current) use of insulin; L89.621 Pressure ulcer of left heel, stage 1; L89.611 Pressure ulcer of right heel, stage 1; L98.9 Disorder of the skin and subcutaneous tissue, unspecified; E83.39 Other disorders of phosphorus metabolism; E83.52 Hypercalcemia; E87.6 Hypokalemia; F41.9 Anxiety disorder, unspecified; N31.9 Neuromuscular dysfunction of bladder, unspecified; K44.9 Diaphragmatic hernia without obstruction or gangrene; D64.9 Anemia, unspecified; Y92.129 Unspecified place in nursing home as the place of occurrence of the external cause; Y84.8 Other medical procedures as the cause of abnormal reaction of the patient, or of later complication, without mention of misadventure at the time of the procedure
CPT/HCPCS: 31720; 36415; 36569; 71010-TC; 80048-TC; 80053-TC; 80076-TC; 80150; 80202-TC; 81000-TC; 82272-TC; 82962-TC; 83605-TC; 83735-TC; 84100-TC; 84132-TC; 84484-TC; 85025-TC; 85730-TC; 86850-TC; 86921-TC; 87040-TC; 87081-TC; 87086-TC; 87186-TC; 87400; 88305-TC; 88312-TC; 88313-TC; 88342; 90935-TC; 94002-TC; 94003-TC; 94760-TC; 94762-TC; 99082-TC; A4216; A4606; A4623; A6402; A6403; A9563; C1751; C1769; C9113; J0278; J0885; J1815; J1953; J1956; J2060; J2185; J2248; J2405; J2704; J2765; J3370; J3490; J7030; J7040; J7042; J7050; J7060; J8597; P9016-BL; P9047; Q0162; Z7610

== ENCOUNTER 2017-04-18 20:02 | Inpatient (IN) | payer MEDICARE, OTHER ==
[~2017-04-18] VITALS: Ht 167.6 cm; Wt 55.3 kg
[~2017-04-18 20:02] MED LIST changes: -ALLA266C2 TP; -Hydrogel Dressing TP; +PANT40SU PO; -PANT40SU2 GT
[2017-04-18] MEDS ORDERED: AZTREONAM 2 G in IV NS 0.9% 100 ML IV ONE (20:30)
[2017-04-18] MEDS ORDERED: VANCOMYCIN 1 GM in IV D5W 250 ML IV ONE (20:30)
[2017-04-18] MEDS ORDERED: IV NS 0.9% 1,000 ML BAG IV ONE (20:30)
[2017-04-18] MEDS ORDERED: VANCOMYCIN 1 GM VIAL ONE (20:35)
[2017-04-18] MEDS ORDERED: AZTREONAM 1 G VIAL ONE (20:38)
[2017-04-18 20:48] LABS: ALANINE AMINOTRANSFERASE 14 U/L (12-78); ALBUMIN 3.2 g/dL (3.4-5.0); ALKALINE PHOSPHATASE 374 U/L (46-116); ASPARTATE AMINOTRANSFERASE 16 U/L (15-37); BILIRUBIN,DIRECT 0.1 mg/dL (0.0-0.2); BILIRUBIN,TOTAL 0.4 mg/dL (0.2-1.0); CARBON DIOXIDE 25 mmol/L (21-32); CHLORIDE 105 mmol/L (98-107); GLUCOSE 159 mg/dL (74-106); POTASSIUM 4.2 mmol/L (3.5-5.1); SODIUM SERUM 143 mmol/L (136-145); TOTAL PROTEIN, SERUM 10.8 g/dL (6.4-8.2)
[2017-04-18 20:50] LABS: TROPONIN I < 0.017 ng/mL (0.00-0.056)
[2017-04-18 20:51] LABS: UREA NITROGEN, BLOOD 96 mg/dL (7-18)
[2017-04-18 20:52] LABS: BASOPHILS # (AUTO) 0.1 /CMM (0.0-0.2); BASOPHILS % (AUTO) 0.5 % (0.0-2.0); CREATININE 8.5 mg/dL (0.6-1.3); EOSINOPHILS # (AUTO) 0.5 /CMM (0.0-0.7); EOSINOPHILS % (AUTO) 1.9 % (0.0-6.0); HEMATOCRIT 28 % (39-51); HEMOGLOBIN 9.1 g/dL (13.5-17.5); LYMPHOCYTES # (AUTO) 1.1 /CMM (0.8-4.8); LYMPHOCYTES % (AUTO) 3.9 % (20.0-44.0); MEAN CORPUSCULAR HEMOGLOBIN 31 PG (26.0-33.0); MEAN CORPUSCULAR HGB CONC 32 g/dl (31.0-36.0); MEAN CORPUSCULAR VOLUME 96 fL (80-96); MONOCYTES # (AUTO) 3.3 /CMM (0.1-1.30); MONOCYTES % (AUTO) 11.6 % (2.0-12.0); NEUTROPHILS # (AUTO) 23.4 /CMM (1.8-8.9); NEUTROPHILS % (AUTO) 82.1 % (43.0-81.0); PLATELET COUNT (AUTO) 606 /CMM (150-450); RDW COEFFICIENT OF VARIATION 17.1 (11.5-15.0); RED BLOOD CELL COUNT(AUTO) 2.95 MIL/uL (4.5-6.0); WHITE BLOOD COUNT (AUTO) 28.4 K/uL (4.3-11.0)
[2017-04-18 20:53] LABS: INR 1.05 (0.87-1.13)
[2017-04-18 21:01] VITALS: BP 109/53
[2017-04-18 22:20] LABS: ABG BASE EXCESS -1.4 mmol/L; ABG OXYGEN SATURATION 99.1 % (92.0-98.5); ABG PCO2 40.2 mmHg (35.0-45.0); ABG PH 7.385 (7.350-7.450); ABG PO2 185.3 mmHg (75.0-100.0); AaDO2 53.7 mmHg; MetHb 0.5 % (0.0-1.5); O2Hb 97.6 % (94.0-97.0); PEEP,BG 0 cm H2O; SITE, ABG Right Radial; VT, ABG 500 mL
[2017-04-18 22:41] LABS: BAND % (MANUAL) 1 % (0.0-5.0); EOSINOPHILS % (MANUAL) 1 % (0-4); LYMPHOCYTES % (MANUAL) 5 % (16-48); MONOCYTES % (MANUAL) 9 % (0-11.0); NEUTROPHILS % (MANUAL) 84 (42-76)
[2017-04-18] MEDS ORDERED: AZTREONAM 1 G VIAL IV PRN (23:00)
[2017-04-18 23:21] LABS: APPEARANCE,URINE TURBID (CLEAR)
[2017-04-18 23:22] LABS: COLOR,URINE OTHER (YELLOW); PH,URINE 8.5 (5.0-8.0); PROTEIN,URINE 3+ mg/dl (NEGATIVE)
[2017-04-18 23:23] LABS: BILIRUBIN,URINE 2+ (NEGATIVE); BLOOD, URINE 2+ Ery/uL (NEGATIVE); KETONES,URINE NEGATIVE (NEGATIVE); UGLUCOSE NEGATIVE (NEGATIVE); UROBILINOGEN,URINE 0.2 EU/dL (0.2)
[2017-04-18 23:24] LABS: LEUKOCYTE ESTERASE ,URINE 3+ (NEGATIVE); NITRITE, URINE NEGATIVE (NEGATIVE)
[2017-04-18 23:25] LABS: BACTERIA,URINE Few /HPF (None Seen); SQUAMOUS EPITHELIAL CELL,UR Few /HPF (None Seen); WBC,URINE TOO NUMEROUS TO COUN /HPF (0-3)
[2017-04-19] VITALS: BP 111/60
[2017-04-19 04:00] VITALS: BP 105/60
[2017-04-19 07:49] LABS: BASOPHILS # (AUTO) 0.1 /CMM (0.0-0.2); BASOPHILS % (AUTO) 0.5 % (0.0-2.0); EOSINOPHILS # (AUTO) 1.3 /CMM (0.0-0.7); EOSINOPHILS % (AUTO) 4.9 % (0.0-6.0); HEMATOCRIT 23 % (39-51); HEMOGLOBIN 7.4 g/dL (13.5-17.5); LYMPHOCYTES # (AUTO) 1.2 /CMM (0.8-4.8); LYMPHOCYTES % (AUTO) 4.5 % (20.0-44.0); MEAN CORPUSCULAR HEMOGLOBIN 31 PG (26.0-33.0); MEAN CORPUSCULAR HGB CONC 32 g/dl (31.0-36.0); MEAN CORPUSCULAR VOLUME 98 fL (80-96); MONOCYTES # (AUTO) 2.9 /CMM (0.1-1.30); MONOCYTES % (AUTO) 10.8 % (2.0-12.0); NEUTROPHILS # (AUTO) 21.3 /CMM (1.8-8.9); NEUTROPHILS % (AUTO) 79.3 % (43.0-81.0); PLATELET COUNT (AUTO) 494 /CMM (150-450); RDW COEFFICIENT OF VARIATION 18.3 (11.5-15.0); RED BLOOD CELL COUNT(AUTO) 2.36 MIL/uL (4.5-6.0); WHITE BLOOD COUNT (AUTO) 26.8 K/uL (4.3-11.0)
[2017-04-19 08:00] VITALS: BP 109/71
[2017-04-19 08:32] LABS: POTASSIUM 4.4 mmol/L (3.5-5.1)
[2017-04-19 08:34] LABS: CREATININE 8.2 mg/dL (0.6-1.3)
[2017-04-19] MEDS ORDERED: FEE PK DOSING 1 MIN EA MC ONE ×2 (09:42→17:17)
[2017-04-19 10:35] LABS: BAND % (MANUAL) 3 % (0.0-5.0); EOSINOPHILS % (MANUAL) 6 % (0-4); LYMPHOCYTES % (MANUAL) 5 % (16-48); MONOCYTES % (MANUAL) 13 % (0-11.0); NEUTROPHILS % (MANUAL) 73 (42-76)
[2017-04-19] MEDS: VANCOMYCIN POST DIALYSIS 500MG IV PRN ×8 (10:54→12:17)
[2017-04-19] MEDS: AZTREONAM 500 MG in IV NS 0.9% 50 ML IV SCH ×2 (11:07→22:52)
[2017-04-19 12:00] VITALS: BP 108/68
[2017-04-19] MEDS: RENAL NOVASOURCE 1,000 ML BOTTLE GT PRN (14:44)
[2017-04-19 16:00] VITALS: BP 113/72
[2017-04-19] MEDS ORDERED: DOSING PER PHARMACY-AMIKACI IV XX PRN (16:30)
[2017-04-19] MEDS ORDERED: AMIKACIN 500 MG in IV D5W 100 ML IV ONE (18:00)
[2017-04-19] MEDS ORDERED: LORAZEPAM 1 MG TABLET GT PRN (18:00)
[2017-04-19] MEDS ORDERED: BLOOD SUGAR DIAGNOSTIC 1 EACH STRIP IN SCH (18:00)
[2017-04-19] MEDS ORDERED: ZOLPIDEM TARTRATE 5 MG TABLET GT PRN (18:00)
[2017-04-19] MEDS ORDERED: INSULIN ASPART/LISPRO 100 UNIT/ML CARTRIDGE SQ PRN (18:00)
[2017-04-19] MEDS ORDERED: DEXTROSE 50%-WATER 50 ML DISP.SYRIN IV PRN (18:30)
[2017-04-19] MEDS ORDERED: ONDANSETRON HCL 4 MG/5 ML SOLUTION GT PRN (18:30)
[2017-04-19] MEDS: IPRATROPIUM NEB FS 0.5 MG/2.5 ML AMPUL.NEB NEB SCH ×2 (19:50→23:43)
[2017-04-19 20:00] VITALS: BP 94/67
[2017-04-19] MEDS: PANTOPRAZOLE 40 MG/PACK PACK PO SCH (20:21)
[2017-04-19] MEDS: CHLORHEXIDINE GLUCONATE 15 ML UDC MM SCH (20:21)
[2017-04-19] MEDS: MUPIROCIN OINT 2% 22 GM TUBE SCH (20:21)
[2017-04-19] MEDS: METOCLOPRAMIDE HCL 10 MG TABLET GT SCH (20:22)
[2017-04-19] MEDS ORDERED: AZTREONAM 1 G VIAL ONE (22:44)
[2017-04-19] MEDS: BLOOD SUGAR DIAGNOSTIC 1 EACH STRIP VI SCH (22:53)
[2017-04-19] MEDS ORDERED: ONDANSETRON HCL/PF 4 MG/2 ML VIAL ONE (23:28)
[2017-04-19] MEDS: ONDANSETRON HCL/PF 4 MG/2 ML VIAL IV PRN (23:31)
[2017-04-20] VITALS: BP 117/77
[2017-04-20] MEDS: IPRATROPIUM NEB FS 0.5 MG/2.5 ML AMPUL.NEB NEB SCH ×6 (03:52→23:12)
[2017-04-20 04:00] VITALS: BP 81/52
[2017-04-20] MEDS ORDERED: AMIKACIN 300 MG in IV D5W 100 ML IV PRN (06:00)
[2017-04-20] MEDS: BLOOD SUGAR DIAGNOSTIC 1 EACH STRIP VI SCH ×4 (06:38→21:50)
[2017-04-20 07:23] LABS: BASOPHILS # (AUTO) 0.1 /CMM (0.0-0.2); BASOPHILS % (AUTO) 0.3 % (0.0-2.0); EOSINOPHILS # (AUTO) 0.7 /CMM (0.0-0.7); EOSINOPHILS % (AUTO) 3.3 % (0.0-6.0); HEMATOCRIT 24 % (39-51); HEMOGLOBIN 7.4 g/dL (13.5-17.5); LYMPHOCYTES # (AUTO) 1.2 /CMM (0.8-4.8); LYMPHOCYTES % (AUTO) 5.6 % (20.0-44.0); MEAN CORPUSCULAR HEMOGLOBIN 31 PG (26.0-33.0); MEAN CORPUSCULAR HGB CONC 31 g/dl (31.0-36.0); MEAN CORPUSCULAR VOLUME 98 fL (80-96); MONOCYTES # (AUTO) 2.7 /CMM (0.1-1.30); MONOCYTES % (AUTO) 11.9 % (2.0-12.0); NEUTROPHILS # (AUTO) 17.7 /CMM (1.8-8.9); NEUTROPHILS % (AUTO) 78.9 % (43.0-81.0); PLATELET COUNT (AUTO) 477 /CMM (150-450); RDW COEFFICIENT OF VARIATION 19.1 (11.5-15.0); RED BLOOD CELL COUNT(AUTO) 2.41 MIL/uL (4.5-6.0); WHITE BLOOD COUNT (AUTO) 22.4 K/uL (4.3-11.0)
[2017-04-20 08:00] VITALS: BP 129/48
[2017-04-20 08:00] LABS: BAND % (MANUAL) 4 % (0.0-5.0); EOSINOPHILS % (MANUAL) 4 % (0-4); LYMPHOCYTES % (MANUAL) 7 % (16-48); MONOCYTES % (MANUAL) 11 % (0-11.0); NEUTROPHILS % (MANUAL) 74 (42-76)
[2017-04-20 08:02] LABS: CALCIUM, SERUM 10.7 mg/dL (8.5-10.1); CREATININE 6.7 mg/dL (0.6-1.3); MAGNESIUM 2.1 mg/dL (1.8-2.4); PHOSPHORUS 3.8 mg/dL (2.5-4.9); POTASSIUM 4.1 mmol/L (3.5-5.1)
[2017-04-20] MEDS: Z GUARD REMEDY 2 OZ OINT TP SCH (10:44)
[2017-04-20] MEDS: CHLORHEXIDINE GLUCONATE 15 ML UDC MM SCH ×2 (10:45→21:49)
[2017-04-20] MEDS: SEVELAMER CARBONATE 0.8 GM POWD.PACK GT SCH ×3 (10:45→18:15)
[2017-04-20] MEDS: GABAPENTIN 300 MG CAPSULE GT SCH ×3 (10:45→18:13)
[2017-04-20] MEDS: VIT B CMPLX 3/FA/VIT C/BIOTIN 1 TAB TABLET GT SCH (10:46)
[2017-04-20] MEDS: PROSOURCE / PROSTAT (PYXIS) 30 ML UDC GT SCH ×2 (10:46→18:13)
[2017-04-20] MEDS: AMLODIPINE BESYLATE 5 MG TABLET GT SCH (10:46)
[2017-04-20] MEDS: PANTOPRAZOLE 40 MG/PACK PACK PO SCH ×2 (10:46→21:49)
[2017-04-20] MEDS: METOCLOPRAMIDE HCL 10 MG TABLET GT SCH ×2 (10:46→21:49)
[2017-04-20] MEDS: LEVETIRACETAM SOL (5 ML) 100 MG/ML UDC GT SCH ×2 (10:46→18:13)
[2017-04-20] MEDS: ESCITALOPRAM OXALATE (10 MG) 10 MG TABLET GT SCH (10:47)
[2017-04-20] MEDS: MIDODRINE HCL (5MG) 5 MG TABLET PO SCH ×3 (10:47→18:15)
[2017-04-20] MEDS: MUPIROCIN OINT 2% 22 GM TUBE SCH ×2 (10:47→21:50)
[2017-04-20 12:00] VITALS: BP 107/51
[2017-04-20] MEDS: AZTREONAM 500 MG in IV NS 0.9% 50 ML IV SCH ×2 (12:56→21:50)
[2017-04-20 16:00] VITALS: BP 107/57
[2017-04-20 20:36] VITALS: BP 96/60
[2017-04-21] VITALS (8 sets, daily range): BP systolic 100–137; BP diastolic 43–85
[2017-04-21] MEDS: ONDANSETRON HCL/PF 4 MG/2 ML VIAL IV PRN (01:47)
[2017-04-21] MEDS: IPRATROPIUM NEB FS 0.5 MG/2.5 ML AMPUL.NEB NEB SCH ×6 (03:06→23:15)
[2017-04-21] MEDS: BLOOD SUGAR DIAGNOSTIC 1 EACH STRIP VI SCH ×4 (06:35→21:37)
[2017-04-21 07:18] LABS: CALCIUM, SERUM 11.4 mg/dL (8.5-10.1)
[2017-04-21 07:28] LABS: CREATININE 7.8 mg/dL (0.6-1.3)
[2017-04-21] MEDS: LEVETIRACETAM SOL (5 ML) 100 MG/ML UDC GT SCH ×2 (09:32→17:53)
[2017-04-21] MEDS: CHLORHEXIDINE GLUCONATE 15 ML UDC MM SCH ×2 (09:32→21:07)
[2017-04-21] MEDS: PANTOPRAZOLE 40 MG/PACK PACK PO SCH ×2 (09:32→21:08)
[2017-04-21] MEDS: GABAPENTIN 300 MG CAPSULE GT SCH ×3 (09:32→17:53)
[2017-04-21] MEDS: MIDODRINE HCL (5MG) 5 MG TABLET PO SCH ×3 (09:33→17:52)
[2017-04-21] MEDS: VIT B CMPLX 3/FA/VIT C/BIOTIN 1 TAB TABLET GT SCH (09:33)
[2017-04-21] MEDS: SEVELAMER CARBONATE 0.8 GM POWD.PACK GT SCH ×3 (09:33→17:53)
[2017-04-21] MEDS: AMLODIPINE BESYLATE 5 MG TABLET GT SCH (09:34)
[2017-04-21] MEDS: METOCLOPRAMIDE HCL 10 MG TABLET GT SCH ×2 (09:34→21:08)
[2017-04-21] MEDS: ESCITALOPRAM OXALATE (10 MG) 10 MG TABLET GT SCH (09:34)
[2017-04-21] MEDS: MUPIROCIN OINT 2% 22 GM TUBE SCH ×2 (09:35→21:07)
[2017-04-21] MEDS: Z GUARD REMEDY 2 OZ OINT TP SCH (09:35)
[2017-04-21] MEDS: AZTREONAM 500 MG in IV NS 0.9% 50 ML IV SCH (09:46)
[2017-04-21] MEDS: PROSOURCE / PROSTAT (PYXIS) 30 ML UDC GT SCH ×2 (09:48→17:53)
[2017-04-21 13:29] LABS: BASOPHILS # (AUTO) 0.2 /CMM (0.0-0.2); HEMATOCRIT 26 % (39-51); HEMOGLOBIN 8.2 g/dL (13.5-17.5); LYMPHOCYTES # (AUTO) 1.2 /CMM (0.8-4.8); LYMPHOCYTES % (AUTO) 6.9 % (20.0-44.0); MEAN CORPUSCULAR HEMOGLOBIN 30 PG (26.0-33.0); MEAN CORPUSCULAR HGB CONC 31 g/dl (31.0-36.0); MEAN CORPUSCULAR VOLUME 96 fL (80-96); MONOCYTES # (AUTO) 1.7 /CMM (0.1-1.30); NEUTROPHILS # (AUTO) 12.8 /CMM (1.8-8.9); NEUTROPHILS % (AUTO) 76.1 % (43.0-81.0); PLATELET COUNT (AUTO) 564 /CMM (150-450); RDW COEFFICIENT OF VARIATION 18.1 (11.5-15.0); RED BLOOD CELL COUNT(AUTO) 2.72 MIL/uL (4.5-6.0); WHITE BLOOD COUNT (AUTO) 16.9 K/uL (4.3-11.0)
[2017-04-21 14:08] LABS: MAGNESIUM 2.5 mg/dL (1.8-2.4); PHOSPHORUS 5.7 mg/dL (2.5-4.9)
[2017-04-21] MEDS: LACTOBACILLUS RHAMNOSUS GG 1 EACH CAP.SPRINK PO SCH (17:53)
[2017-04-21] MEDS: INSULIN REGULAR, HUMAN 100 UNIT/ML 3 ML VIAL SQ PRN (21:38)
[2017-04-22] VITALS (7 sets, daily range): BP systolic 86–113; BP diastolic 46–67
[2017-04-22] MEDS: IPRATROPIUM NEB FS 0.5 MG/2.5 ML AMPUL.NEB NEB SCH ×6 (03:53→23:56)
[2017-04-22 07:21] LABS: BASOPHILS # (AUTO) 0.1 /CMM (0.0-0.2); BASOPHILS % (AUTO) 0.8 % (0.0-2.0); EOSINOPHILS # (AUTO) 0.8 /CMM (0.0-0.7); EOSINOPHILS % (AUTO) 6.1 % (0.0-6.0); LYMPHOCYTES # (AUTO) 0.6 /CMM (0.8-4.8); MEAN CORPUSCULAR HEMOGLOBIN 31 PG (26.0-33.0); MEAN CORPUSCULAR HGB CONC 33 g/dl (31.0-36.0); MEAN CORPUSCULAR VOLUME 94 fL (80-96); MONOCYTES # (AUTO) 1.1 /CMM (0.1-1.30); MONOCYTES % (AUTO) 8.3 % (2.0-12.0); NEUTROPHILS # (AUTO) 10.1 /CMM (1.8-8.9); NEUTROPHILS % (AUTO) 79.8 % (43.0-81.0); PLATELET COUNT (AUTO) 332 /CMM (150-450); RDW COEFFICIENT OF VARIATION 22.5 (11.5-15.0); RED BLOOD CELL COUNT(AUTO) 2.15 MIL/uL (4.5-6.0); WHITE BLOOD COUNT (AUTO) 12.7 K/uL (4.3-11.0)
[2017-04-22 07:25] LABS: HEMATOCRIT 20 % (39-51); HEMOGLOBIN 6.6 g/dL (13.5-17.5)
[2017-04-22 08:28] LABS: CALCIUM, SERUM 10.9 mg/dL (8.5-10.1); MAGNESIUM 2.5 mg/dL (1.8-2.4); PHOSPHORUS 5.7 mg/dL (2.5-4.9); POTASSIUM 4.3 mmol/L (3.5-5.1)
[2017-04-22 08:30] LABS: CREATININE 9.4 mg/dL (0.6-1.3)
[2017-04-22] MEDS: AMLODIPINE BESYLATE 5 MG TABLET GT SCH (09:00)
[2017-04-22 09:41] LABS: EOSINOPHILS % (MANUAL) 8 % (0-4); LYMPHOCYTES % (MANUAL) 7 % (16-48); MONOCYTES % (MANUAL) 6 % (0-11.0); NEUTROPHILS % (MANUAL) 79 (42-76)
[2017-04-22] MEDS: LACTOBACILLUS RHAMNOSUS GG 1 EACH CAP.SPRINK PO SCH ×2 (09:54→17:24)
[2017-04-22] MEDS: CHLORHEXIDINE GLUCONATE 15 ML UDC MM SCH ×2 (09:54→20:46)
[2017-04-22] MEDS: PANTOPRAZOLE 40 MG/PACK PACK PO SCH ×2 (09:54→20:46)
[2017-04-22] MEDS: ESCITALOPRAM OXALATE (10 MG) 10 MG TABLET GT SCH (09:55)
[2017-04-22] MEDS: VIT B CMPLX 3/FA/VIT C/BIOTIN 1 TAB TABLET GT SCH (09:55)
[2017-04-22] MEDS: SEVELAMER CARBONATE 0.8 GM POWD.PACK GT SCH ×3 (09:55→17:22)
[2017-04-22] MEDS: GABAPENTIN 300 MG CAPSULE GT SCH ×3 (09:55→17:23)
[2017-04-22] MEDS: LEVETIRACETAM SOL (5 ML) 100 MG/ML UDC GT SCH ×2 (09:55→17:23)
[2017-04-22] MEDS: Z GUARD REMEDY 2 OZ OINT TP PRN (09:55)
[2017-04-22] MEDS: BLOOD SUGAR DIAGNOSTIC 1 EACH STRIP VI SCH ×4 (09:55→21:53)
[2017-04-22] MEDS: METOCLOPRAMIDE HCL 10 MG TABLET GT SCH ×2 (09:55→20:46)
[2017-04-22] MEDS: PROSOURCE / PROSTAT (PYXIS) 30 ML UDC GT SCH ×2 (09:56→17:22)
[2017-04-22] MEDS: MUPIROCIN OINT 2% 22 GM TUBE SCH ×2 (09:57→20:46)
[2017-04-22] MEDS: RENAL NOVASOURCE 1,000 ML BOTTLE GT PRN (09:57)
[2017-04-22] MEDS: Z GUARD REMEDY 2 OZ OINT TP SCH (11:08)
[2017-04-22] MEDS: MIDODRINE HCL (5MG) 5 MG TABLET PO SCH ×3 (11:08→17:24)
[2017-04-22 12:27] LABS: HEMOGLOBIN 9.5 g/dL (13.5-17.5)
[2017-04-22] MEDS: INSULIN REGULAR, HUMAN 100 UNIT/ML 3 ML VIAL SQ PRN ×2 (12:44→21:57)
[2017-04-22] MEDS: VANCOMYCIN POST DIALYSIS 500MG IV PRN ×2 (15:41)
[2017-04-23] VITALS: BP 92/45
[2017-04-23] MEDS: IPRATROPIUM NEB FS 0.5 MG/2.5 ML AMPUL.NEB NEB SCH ×6 (03:13→23:53)
[2017-04-23 04:00] VITALS: BP 94/44
[2017-04-23 06:39] LABS: BASOPHILS % (AUTO) 0.2 % (0.0-2.0); EOSINOPHILS # (AUTO) 0.9 /CMM (0.0-0.7); EOSINOPHILS % (AUTO) 3.5 % (0.0-6.0); HEMATOCRIT 26 % (39-51); HEMOGLOBIN 8.2 g/dL (13.5-17.5); LYMPHOCYTES % (AUTO) 4.1 % (20.0-44.0); MEAN CORPUSCULAR HEMOGLOBIN 30 PG (26.0-33.0); MEAN CORPUSCULAR HGB CONC 31 g/dl (31.0-36.0); MEAN CORPUSCULAR VOLUME 98 fL (80-96); MONOCYTES # (AUTO) 2.1 /CMM (0.1-1.30); MONOCYTES % (AUTO) 8.5 % (2.0-12.0); NEUTROPHILS # (AUTO) 20.4 /CMM (1.8-8.9); NEUTROPHILS % (AUTO) 83.7 % (43.0-81.0); PLATELET COUNT (AUTO) 554 /CMM (150-450); RDW COEFFICIENT OF VARIATION 18.5 (11.5-15.0); RED BLOOD CELL COUNT(AUTO) 2.71 MIL/uL (4.5-6.0); WHITE BLOOD COUNT (AUTO) 24.4 K/uL (4.3-11.0)
[2017-04-23 06:41] LABS: CALCIUM, SERUM 11.4 mg/dL (8.5-10.1); CREATININE 6.3 mg/dL (0.6-1.3); POTASSIUM 3.8 mmol/L (3.5-5.1)
[2017-04-23 07:07] LABS: IRON, SERUM 22 ug/dl (50-175); TOTAL IRON BINDING CAPACITY 210 ug/dl (250-450)
[2017-04-23 08:00] VITALS: BP 106/67
[2017-04-23] MEDS: LACTOBACILLUS RHAMNOSUS GG 1 EACH CAP.SPRINK PO SCH ×2 (08:13→16:17)
[2017-04-23] MEDS: VIT B CMPLX 3/FA/VIT C/BIOTIN 1 TAB TABLET GT SCH (08:13)
[2017-04-23] MEDS: ESCITALOPRAM OXALATE (10 MG) 10 MG TABLET GT SCH (08:14)
[2017-04-23] MEDS: METOCLOPRAMIDE HCL 10 MG TABLET GT SCH ×2 (08:14→21:17)
[2017-04-23] MEDS: SEVELAMER CARBONATE 0.8 GM POWD.PACK GT SCH ×3 (08:14→16:17)
[2017-04-23] MEDS: PANTOPRAZOLE 40 MG/PACK PACK PO SCH ×2 (08:14→21:17)
[2017-04-23] MEDS: LEVETIRACETAM SOL (5 ML) 100 MG/ML UDC GT SCH ×2 (08:14→16:17)
[2017-04-23] MEDS: CHLORHEXIDINE GLUCONATE 15 ML UDC MM SCH ×2 (08:14→21:16)
[2017-04-23] MEDS: GABAPENTIN 300 MG CAPSULE GT SCH ×3 (08:14→16:17)
[2017-04-23] MEDS: MIDODRINE HCL (5MG) 5 MG TABLET PO SCH ×3 (08:15→16:17)
[2017-04-23] MEDS: AMLODIPINE BESYLATE 5 MG TABLET GT SCH (08:15)
[2017-04-23] MEDS: PROSOURCE / PROSTAT (PYXIS) 30 ML UDC GT SCH ×2 (08:17→16:23)
[2017-04-23] MEDS: Z GUARD REMEDY 2 OZ OINT TP PRN (08:22)
[2017-04-23] MEDS: MUPIROCIN OINT 2% 22 GM TUBE SCH ×2 (08:22→21:29)
[2017-04-23] MEDS: BLOOD SUGAR DIAGNOSTIC 1 EACH STRIP VI SCH ×4 (08:25→21:17)
[2017-04-23] MEDS: Z GUARD REMEDY 2 OZ OINT TP SCH (08:39)
[2017-04-23 09:18] LABS: LYMPHOCYTES % (MANUAL) 3 % (16-48); MONOCYTES % (MANUAL) 10 % (0-11.0); NEUTROPHILS % (MANUAL) 87 (42-76)
[2017-04-23 10:16] LABS: FERRITIN 689 ng/mL (8-388)
[2017-04-23 12:00] VITALS: BP 93/48
[2017-04-23] MEDS: SOD FERRIC GLUC 125 MG in IV NS 0.9% 100 ML IV SCH (14:33)
[2017-04-23 16:00] VITALS: BP 106/70
[2017-04-23] MEDS: METRONIDAZOLE 500 MG TABLET PO SCH (16:23)
[2017-04-23] MEDS: RENAL NOVASOURCE 1,000 ML BOTTLE GT PRN (16:42)
[2017-04-23 20:00] VITALS: BP 104/64
[2017-04-23] MEDS: *INSULIN REGULAR(HUMULIN R)HUM 100 UNIT/ML VIAL SQ PRN (21:31)
[2017-04-24] VITALS: BP 103/59
[2017-04-24] MEDS: METRONIDAZOLE 500 MG TABLET PO SCH ×3 (01:11→16:45)
[2017-04-24] MEDS: IPRATROPIUM NEB FS 0.5 MG/2.5 ML AMPUL.NEB NEB SCH ×6 (03:53→23:04)
[2017-04-24 04:00] VITALS: BP 90/60
[2017-04-24 08:00] VITALS: BP 125/73
[2017-04-24] MEDS: MIDODRINE HCL (5MG) 5 MG TABLET PO SCH ×3 (08:33→16:45)
[2017-04-24] MEDS: BLOOD SUGAR DIAGNOSTIC 1 EACH STRIP VI SCH ×4 (08:33→22:25)
[2017-04-24] MEDS: PROSOURCE / PROSTAT (PYXIS) 30 ML UDC GT SCH ×2 (08:34→16:45)
[2017-04-24] MEDS: GABAPENTIN 300 MG CAPSULE GT SCH ×3 (08:34→16:45)
[2017-04-24] MEDS: AMLODIPINE BESYLATE 5 MG TABLET GT SCH (08:34)
[2017-04-24] MEDS: LACTOBACILLUS RHAMNOSUS GG 1 EACH CAP.SPRINK PO SCH ×2 (08:34→16:45)
[2017-04-24] MEDS: METOCLOPRAMIDE HCL 10 MG TABLET GT SCH ×2 (08:34→21:02)
[2017-04-24] MEDS: ESCITALOPRAM OXALATE (10 MG) 10 MG TABLET GT SCH (08:34)
[2017-04-24] MEDS: VIT B CMPLX 3/FA/VIT C/BIOTIN 1 TAB TABLET GT SCH (08:35)
[2017-04-24] MEDS: SEVELAMER CARBONATE 0.8 GM POWD.PACK GT SCH ×3 (08:35→16:45)
[2017-04-24] MEDS: CHLORHEXIDINE GLUCONATE 15 ML UDC MM SCH ×2 (08:35→21:02)
[2017-04-24] MEDS: LEVETIRACETAM SOL (5 ML) 100 MG/ML UDC GT SCH ×2 (08:35→16:44)
[2017-04-24] MEDS: Z GUARD REMEDY 2 OZ OINT TP SCH (08:36)
[2017-04-24] MEDS: PANTOPRAZOLE 40 MG/PACK PACK PO SCH ×2 (09:11→21:02)
[2017-04-24] MEDS: MUPIROCIN OINT 2% 22 GM TUBE SCH ×2 (09:11→21:02)
[2017-04-24 11:58] LABS: CALCIUM, SERUM 11.3 mg/dL (8.5-10.1); CREATININE 7.3 mg/dL (0.6-1.3); POTASSIUM 3.8 mmol/L (3.5-5.1)
[2017-04-24 11:59] LABS: BASOPHILS # (AUTO) 0.1 /CMM (0.0-0.2); BASOPHILS % (AUTO) 0.4 % (0.0-2.0); EOSINOPHILS # (AUTO) 1.7 /CMM (0.0-0.7); EOSINOPHILS % (AUTO) 6.9 % (0.0-6.0); HEMATOCRIT 25 % (39-51); HEMOGLOBIN 7.7 g/dL (13.5-17.5); LYMPHOCYTES # (AUTO) 0.9 /CMM (0.8-4.8); LYMPHOCYTES % (AUTO) 3.8 % (20.0-44.0); MEAN CORPUSCULAR HEMOGLOBIN 30 PG (26.0-33.0); MEAN CORPUSCULAR HGB CONC 31 g/dl (31.0-36.0); MEAN CORPUSCULAR VOLUME 96 fL (80-96); MONOCYTES # (AUTO) 1.9 /CMM (0.1-1.30); MONOCYTES % (AUTO) 8.1 % (2.0-12.0); NEUTROPHILS # (AUTO) 19.5 /CMM (1.8-8.9); NEUTROPHILS % (AUTO) 80.8 % (43.0-81.0); PLATELET COUNT (AUTO) 546 /CMM (150-450); RDW COEFFICIENT OF VARIATION 18.6 (11.5-15.0); RED BLOOD CELL COUNT(AUTO) 2.54 MIL/uL (4.5-6.0); WHITE BLOOD COUNT (AUTO) 24.1 K/uL (4.3-11.0)
[2017-04-24 12:00] VITALS: BP 122/69
[2017-04-24] MEDS: *INSULIN REGULAR(HUMULIN R)HUM 100 UNIT/ML VIAL SQ PRN (12:15)
[2017-04-24] MEDS ORDERED: EPOETIN ALFA (10,000 UNIT) 10,000 UNIT/ML VIAL SQ ONE (13:00)
[2017-04-24] MEDS: SOD FERRIC GLUC 125 MG in IV NS 0.9% 100 ML IV SCH (15:37)
[2017-04-24 16:00] VITALS: BP 116/77
[2017-04-24] MEDS: RENAL NOVASOURCE 1,000 ML BOTTLE GT PRN (19:48)
[2017-04-24 20:00] VITALS: BP 99/59
[2017-04-25] VITALS (7 sets, daily range): BP systolic 74–113; BP diastolic 38–66
[2017-04-25] MEDS: METRONIDAZOLE 500 MG TABLET PO SCH ×3 (00:54→16:47)
[2017-04-25] MEDS: IPRATROPIUM NEB FS 0.5 MG/2.5 ML AMPUL.NEB NEB SCH ×6 (04:33→23:32)
[2017-04-25] MEDS: BLOOD SUGAR DIAGNOSTIC 1 EACH STRIP VI SCH ×4 (06:32→22:06)
[2017-04-25 07:01] LABS: BASOPHILS % (AUTO) 0.2 % (0.0-2.0); EOSINOPHILS # (AUTO) 1.1 /CMM (0.0-0.7); EOSINOPHILS % (AUTO) 5.6 % (0.0-6.0); HEMATOCRIT 24 % (39-51); HEMOGLOBIN 7.5 g/dL (13.5-17.5); LYMPHOCYTES # (AUTO) 0.8 /CMM (0.8-4.8); LYMPHOCYTES % (AUTO) 4.3 % (20.0-44.0); MEAN CORPUSCULAR HEMOGLOBIN 31 PG (26.0-33.0); MEAN CORPUSCULAR HGB CONC 32 g/dl (31.0-36.0); MEAN CORPUSCULAR VOLUME 97 fL (80-96); MONOCYTES # (AUTO) 2.1 /CMM (0.1-1.30); NEUTROPHILS # (AUTO) 15.2 /CMM (1.8-8.9); NEUTROPHILS % (AUTO) 78.9 % (43.0-81.0); PLATELET COUNT (AUTO) 500 /CMM (150-450); RDW COEFFICIENT OF VARIATION 18.5 (11.5-15.0); RED BLOOD CELL COUNT(AUTO) 2.44 MIL/uL (4.5-6.0); WHITE BLOOD COUNT (AUTO) 19.3 K/uL (4.3-11.0)
[2017-04-25 07:43] LABS: CALCIUM, SERUM 10.5 mg/dL (8.5-10.1); CREATININE 4.6 mg/dL (0.6-1.3); MAGNESIUM 2.2 mg/dL (1.8-2.4); PHOSPHORUS 3.4 mg/dL (2.5-4.9); POTASSIUM 3.5 mmol/L (3.5-5.1)
[2017-04-25] MEDS: PANTOPRAZOLE 40 MG/PACK PACK PO SCH ×2 (08:54→21:24)
[2017-04-25] MEDS: GABAPENTIN 300 MG CAPSULE GT SCH ×3 (08:54→16:48)
[2017-04-25] MEDS: VIT B CMPLX 3/FA/VIT C/BIOTIN 1 TAB TABLET GT SCH (08:54)
[2017-04-25] MEDS: LEVETIRACETAM SOL (5 ML) 100 MG/ML UDC GT SCH ×2 (08:54→16:47)
[2017-04-25] MEDS: CHLORHEXIDINE GLUCONATE 15 ML UDC MM SCH ×2 (08:54→21:24)
[2017-04-25] MEDS: LACTOBACILLUS RHAMNOSUS GG 1 EACH CAP.SPRINK PO SCH ×2 (08:54→16:47)
[2017-04-25] MEDS: SEVELAMER CARBONATE 0.8 GM POWD.PACK GT SCH ×3 (08:54→16:47)
[2017-04-25] MEDS: METOCLOPRAMIDE HCL 10 MG TABLET GT SCH ×2 (08:55→21:24)
[2017-04-25] MEDS: ESCITALOPRAM OXALATE (10 MG) 10 MG TABLET GT SCH (08:55)
[2017-04-25] MEDS: PROSOURCE / PROSTAT (PYXIS) 30 ML UDC GT SCH ×2 (08:55→16:49)
[2017-04-25] MEDS: MIDODRINE HCL (5MG) 5 MG TABLET PO SCH ×3 (08:55→16:47)
[2017-04-25] MEDS: Z GUARD REMEDY 2 OZ OINT TP SCH (08:56)
[2017-04-25] MEDS: AMLODIPINE BESYLATE 5 MG TABLET GT SCH (08:56)
[2017-04-25] MEDS: MUPIROCIN OINT 2% 22 GM TUBE SCH ×2 (08:57→21:25)
[2017-04-25] MEDS: SOD FERRIC GLUC 125 MG in IV NS 0.9% 100 ML IV SCH (15:22)
[2017-04-26] VITALS (12 sets, daily range): BP systolic 93–125; BP diastolic 45–72
[2017-04-26] MEDS: METRONIDAZOLE 500 MG TABLET PO SCH ×3 (01:59→17:34)
[2017-04-26] MEDS: IPRATROPIUM NEB FS 0.5 MG/2.5 ML AMPUL.NEB NEB SCH ×6 (03:15→23:33)
[2017-04-26] MEDS: BLOOD SUGAR DIAGNOSTIC 1 EACH STRIP VI SCH ×4 (06:43→22:15)
[2017-04-26 06:44] LABS: BASOPHILS # (AUTO) 0.1 /CMM (0.0-0.2); BASOPHILS % (AUTO) 0.4 % (0.0-2.0); HEMATOCRIT 23 % (39-51); LYMPHOCYTES % (AUTO) 4.9 % (20.0-44.0); MEAN CORPUSCULAR HEMOGLOBIN 30 PG (26.0-33.0); MEAN CORPUSCULAR HGB CONC 31 g/dl (31.0-36.0); MEAN CORPUSCULAR VOLUME 97 fL (80-96); MONOCYTES # (AUTO) 2.6 /CMM (0.1-1.30); MONOCYTES % (AUTO) 12.7 % (2.0-12.0); NEUTROPHILS # (AUTO) 15.4 /CMM (1.8-8.9); PLATELET COUNT (AUTO) 527 /CMM (150-450); RDW COEFFICIENT OF VARIATION 17.8 (11.5-15.0); RED BLOOD CELL COUNT(AUTO) 2.32 MIL/uL (4.5-6.0); WHITE BLOOD COUNT (AUTO) 20.1 K/uL (4.3-11.0)
[2017-04-26 07:01] LABS: CALCIUM, SERUM 10.6 mg/dL (8.5-10.1); CREATININE 5.8 mg/dL (0.6-1.3); MAGNESIUM 2.2 mg/dL (1.8-2.4); POTASSIUM 3.9 mmol/L (3.5-5.1)
[2017-04-26] MEDS: CHLORHEXIDINE GLUCONATE 15 ML UDC MM SCH ×2 (08:30→21:09)
[2017-04-26] MEDS: MIDODRINE HCL (5MG) 5 MG TABLET PO SCH ×3 (08:30→17:34)
[2017-04-26] MEDS: Z GUARD REMEDY 2 OZ OINT TP SCH (08:31)
[2017-04-26] MEDS: AMLODIPINE BESYLATE 5 MG TABLET GT SCH (09:00)
[2017-04-26] MEDS ORDERED: ALBUMIN 25% 25 GM in PREMIX 1 EA IV ONE (10:00)
[2017-04-26] MEDS ORDERED: EPOETIN ALFA (10,000 UNIT) 10,000 UNIT/ML VIAL SQ ONE (10:30)
[2017-04-26] MEDS ORDERED: HYDROCODONE/APAP 5/325MG 1 EACH TABLET PO PRN (11:00)
[2017-04-26] MEDS: PROSOURCE / PROSTAT (PYXIS) 30 ML UDC GT SCH ×2 (12:45→17:34)
[2017-04-26] MEDS: LEVETIRACETAM SOL (5 ML) 100 MG/ML UDC GT SCH ×2 (12:45→17:34)
[2017-04-26] MEDS: PANTOPRAZOLE 40 MG/PACK PACK PO SCH ×2 (12:47→21:09)
[2017-04-26] MEDS: GABAPENTIN 300 MG CAPSULE GT SCH ×3 (12:47→17:34)
[2017-04-26] MEDS: VIT B CMPLX 3/FA/VIT C/BIOTIN 1 TAB TABLET GT SCH (12:47)
[2017-04-26] MEDS: METOCLOPRAMIDE HCL 10 MG TABLET GT SCH ×2 (12:47→21:09)
[2017-04-26] MEDS: LACTOBACILLUS RHAMNOSUS GG 1 EACH CAP.SPRINK PO SCH ×2 (12:47→17:34)
[2017-04-26] MEDS: ESCITALOPRAM OXALATE (10 MG) 10 MG TABLET GT SCH (12:47)
[2017-04-26] MEDS: MUPIROCIN OINT 2% 22 GM TUBE SCH (12:48)
[2017-04-26] MEDS: SEVELAMER CARBONATE 0.8 GM POWD.PACK GT SCH ×3 (12:53→17:34)
[2017-04-26] MEDS: RENAL NOVASOURCE 1,000 ML BOTTLE GT PRN (12:54)
[2017-04-26] MEDS: VANCOMYCIN POST DIALYSIS 500MG IV PRN ×2 (13:07)
[2017-04-26] MEDS: SOD FERRIC GLUC 125 MG in IV NS 0.9% 100 ML IV SCH (14:47)
[2017-04-27] VITALS (7 sets, daily range): BP systolic 92–118; BP diastolic 47–69
[2017-04-27] MEDS: METRONIDAZOLE 500 MG TABLET PO SCH ×3 (01:31→17:03)
[2017-04-27] MEDS: IPRATROPIUM NEB FS 0.5 MG/2.5 ML AMPUL.NEB NEB SCH ×6 (03:30→22:48)
[2017-04-27 07:14] LABS: BASOPHILS # (AUTO) 0.1 /CMM (0.0-0.2); BASOPHILS % (AUTO) 0.7 % (0.0-2.0); EOSINOPHILS # (AUTO) 0.8 /CMM (0.0-0.7); EOSINOPHILS % (AUTO) 5.4 % (0.0-6.0); HEMATOCRIT 26 % (39-51); HEMOGLOBIN 8.3 g/dL (13.5-17.5); LYMPHOCYTES # (AUTO) 0.9 /CMM (0.8-4.8); MEAN CORPUSCULAR HEMOGLOBIN 31 PG (26.0-33.0); MEAN CORPUSCULAR HGB CONC 32 g/dl (31.0-36.0); MEAN CORPUSCULAR VOLUME 96 fL (80-96); MONOCYTES # (AUTO) 2.5 /CMM (0.1-1.30); NEUTROPHILS # (AUTO) 11.1 /CMM (1.8-8.9); NEUTROPHILS % (AUTO) 71.9 % (43.0-81.0); PLATELET COUNT (AUTO) 492 /CMM (150-450); RDW COEFFICIENT OF VARIATION 17.7 (11.5-15.0); RED BLOOD CELL COUNT(AUTO) 2.69 MIL/uL (4.5-6.0); WHITE BLOOD COUNT (AUTO) 15.4 K/uL (4.3-11.0)
[2017-04-27 07:18] LABS: MAGNESIUM 1.8 mg/dL (1.8-2.4); POTASSIUM 4.1 mmol/L (3.5-5.1)
[2017-04-27] MEDS: BLOOD SUGAR DIAGNOSTIC 1 EACH STRIP VI SCH ×4 (08:22→22:15)
[2017-04-27] MEDS: VIT B CMPLX 3/FA/VIT C/BIOTIN 1 TAB TABLET GT SCH (09:00)
[2017-04-27] MEDS: LACTOBACILLUS RHAMNOSUS GG 1 EACH CAP.SPRINK PO SCH ×2 (09:00→17:04)
[2017-04-27] MEDS: PROSOURCE / PROSTAT (PYXIS) 30 ML UDC GT SCH ×2 (09:00→17:04)
[2017-04-27] MEDS: CHLORHEXIDINE GLUCONATE 15 ML UDC MM SCH ×2 (09:00→21:56)
[2017-04-27] MEDS: GABAPENTIN 300 MG CAPSULE GT SCH ×3 (09:00→17:02)
[2017-04-27] MEDS: Z GUARD REMEDY 2 OZ OINT TP SCH (09:00)
[2017-04-27] MEDS: SEVELAMER CARBONATE 0.8 GM POWD.PACK GT SCH ×3 (10:30→17:04)
[2017-04-27] MEDS: PANTOPRAZOLE 40 MG/PACK PACK PO SCH ×2 (10:30→21:56)
[2017-04-27] MEDS: MIDODRINE HCL (5MG) 5 MG TABLET PO SCH ×3 (10:30→17:04)
[2017-04-27] MEDS: LEVETIRACETAM SOL (5 ML) 100 MG/ML UDC GT SCH ×2 (10:30→17:03)
[2017-04-27] MEDS: METOCLOPRAMIDE HCL 10 MG TABLET GT SCH ×2 (10:31→21:56)
[2017-04-27] MEDS: ESCITALOPRAM OXALATE (10 MG) 10 MG TABLET GT SCH (10:32)
[2017-04-27 12:38] LABS: EOSINOPHILS % (MANUAL) 3 % (0-4); LYMPHOCYTES % (MANUAL) 11 % (16-48); MONOCYTES % (MANUAL) 12 % (0-11.0); NEUTROPHILS % (MANUAL) 74 (42-76)
[2017-04-27] MEDS: SOD FERRIC GLUC 125 MG in IV NS 0.9% 100 ML IV SCH (14:09)
[2017-04-27] MEDS: *INSULIN REGULAR(HUMULIN R)HUM 100 UNIT/ML VIAL SQ PRN (22:14)
[2017-04-27] MEDS: RENAL NOVASOURCE 1,000 ML BOTTLE GT PRN (23:12)
[2017-04-28] VITALS: BP 102/58
[2017-04-28] MEDS: METRONIDAZOLE 500 MG TABLET PO SCH ×3 (00:42→16:37)
[2017-04-28] MEDS: IPRATROPIUM NEB FS 0.5 MG/2.5 ML AMPUL.NEB NEB SCH ×6 (03:14→22:53)
[2017-04-28 04:00] VITALS: BP 107/70
[2017-04-28] MEDS: BLOOD SUGAR DIAGNOSTIC 1 EACH STRIP VI SCH ×4 (06:18→22:00)
[2017-04-28 07:46] LABS: BASOPHILS # (AUTO) 0.1 /CMM (0.0-0.2); BASOPHILS % (AUTO) 0.4 % (0.0-2.0); EOSINOPHILS % (AUTO) 5.4 % (0.0-6.0); HEMATOCRIT 28 % (39-51); LYMPHOCYTES # (AUTO) 0.9 /CMM (0.8-4.8); LYMPHOCYTES % (AUTO) 4.7 % (20.0-44.0); MEAN CORPUSCULAR HEMOGLOBIN 31 PG (26.0-33.0); MEAN CORPUSCULAR HGB CONC 32 g/dl (31.0-36.0); MEAN CORPUSCULAR VOLUME 96 fL (80-96); NEUTROPHILS # (AUTO) 13.8 /CMM (1.8-8.9); NEUTROPHILS % (AUTO) 73.5 % (43.0-81.0); PLATELET COUNT (AUTO) 595 /CMM (150-450); RED BLOOD CELL COUNT(AUTO) 2.92 MIL/uL (4.5-6.0); WHITE BLOOD COUNT (AUTO) 18.7 K/uL (4.3-11.0)
[2017-04-28 08:00] VITALS: BP_SYST 120; BP_DIAS 77; BP_DIAS 85
[2017-04-28 08:04] LABS: ALBUMIN 2.5 g/dL (3.4-5.0); BILIRUBIN,TOTAL 0.3 mg/dL (0.2-1.0); CALCIUM, SERUM 10.5 mg/dL (8.5-10.1); CREATININE 5.2 mg/dL (0.6-1.3); MAGNESIUM 2.1 mg/dL (1.8-2.4); PHOSPHORUS 3.8 mg/dL (2.5-4.9); POTASSIUM 4.2 mmol/L (3.5-5.1); TOTAL PROTEIN, SERUM 8.6 g/dL (6.4-8.2)
[2017-04-28] MEDS: SEVELAMER CARBONATE 0.8 GM POWD.PACK GT SCH ×3 (08:58→16:37)
[2017-04-28] MEDS: CHLORHEXIDINE GLUCONATE 15 ML UDC MM SCH ×2 (08:58→23:26)
[2017-04-28] MEDS: ESCITALOPRAM OXALATE (10 MG) 10 MG TABLET GT SCH (08:59)
[2017-04-28] MEDS: GABAPENTIN 300 MG CAPSULE GT SCH ×3 (08:59→16:37)
[2017-04-28] MEDS: MIDODRINE HCL (5MG) 5 MG TABLET PO SCH ×3 (08:59→16:34)
[2017-04-28] MEDS: LACTOBACILLUS RHAMNOSUS GG 1 EACH CAP.SPRINK PO SCH ×2 (08:59→16:37)
[2017-04-28] MEDS: METOCLOPRAMIDE HCL 10 MG TABLET GT SCH ×2 (08:59→23:26)
[2017-04-28] MEDS: VIT B CMPLX 3/FA/VIT C/BIOTIN 1 TAB TABLET GT SCH (08:59)
[2017-04-28] MEDS: PANTOPRAZOLE 40 MG/PACK PACK PO SCH ×2 (08:59→23:26)
[2017-04-28] MEDS: LEVETIRACETAM SOL (5 ML) 100 MG/ML UDC GT SCH ×2 (09:00→16:37)
[2017-04-28] MEDS: Z GUARD REMEDY 2 OZ OINT TP SCH (09:00)
[2017-04-28] MEDS: PROSOURCE / PROSTAT (PYXIS) 30 ML UDC GT SCH ×2 (09:00→16:37)
[2017-04-28 10:10] LABS: EOSINOPHILS % (MANUAL) 7 % (0-4); LYMPHOCYTES % (MANUAL) 5 % (16-48); MONOCYTES % (MANUAL) 14 % (0-11.0); NEUTROPHILS % (MANUAL) 74 (42-76)
[2017-04-28 12:00] VITALS: BP 111/72
[2017-04-28] MEDS ORDERED: AMIKACIN IV PRN (14:25)
[2017-04-28] MEDS ORDERED: D5W IV PRN (14:25)
[2017-04-28 16:00] VITALS: BP 100/70
[2017-04-28 20:00] VITALS: BP 126/80
[2017-04-29] VITALS: BP 139/76
[2017-04-29] MEDS: METRONIDAZOLE 500 MG TABLET PO SCH ×3 (01:25→16:21)
[2017-04-29] MEDS: IPRATROPIUM NEB FS 0.5 MG/2.5 ML AMPUL.NEB NEB SCH ×6 (03:16→23:30)
[2017-04-29 04:00] VITALS: BP 116/79
[2017-04-29 06:45] LABS: CALCIUM, SERUM 10.3 mg/dL (8.5-10.1); CREATININE 3.9 mg/dL (0.6-1.3); POTASSIUM 3.7 mmol/L (3.5-5.1)
[2017-04-29] MEDS: BLOOD SUGAR DIAGNOSTIC 1 EACH STRIP VI SCH ×4 (07:30→21:55)
[2017-04-29 08:00] VITALS: BP 116/57
[2017-04-29] MEDS: ESCITALOPRAM OXALATE (10 MG) 10 MG TABLET GT SCH (08:38)
[2017-04-29] MEDS: VIT B CMPLX 3/FA/VIT C/BIOTIN 1 TAB TABLET GT SCH (08:38)
[2017-04-29] MEDS: CHLORHEXIDINE GLUCONATE 15 ML UDC MM SCH ×2 (08:38→20:33)
[2017-04-29] MEDS: PANTOPRAZOLE 40 MG/PACK PACK PO SCH ×2 (08:38→20:33)
[2017-04-29] MEDS: SEVELAMER CARBONATE 0.8 GM POWD.PACK GT SCH ×3 (08:38→16:21)
[2017-04-29] MEDS: METOCLOPRAMIDE HCL 10 MG TABLET GT SCH ×2 (08:39→20:33)
[2017-04-29] MEDS: Z GUARD REMEDY 2 OZ OINT TP SCH (08:39)
[2017-04-29] MEDS: MIDODRINE HCL (5MG) 5 MG TABLET PO SCH ×3 (08:39→16:14)
[2017-04-29] MEDS: GABAPENTIN 300 MG CAPSULE GT SCH ×3 (08:39→16:21)
[2017-04-29] MEDS: LACTOBACILLUS RHAMNOSUS GG 1 EACH CAP.SPRINK PO SCH ×2 (08:39→16:21)
[2017-04-29] MEDS: LEVETIRACETAM SOL (5 ML) 100 MG/ML UDC GT SCH ×2 (08:39→16:21)
[2017-04-29] MEDS: PROSOURCE / PROSTAT (PYXIS) 30 ML UDC GT SCH ×2 (08:40→16:21)
[2017-04-29 12:00] VITALS: BP 134/50
[2017-04-29 16:00] VITALS: BP 135/47
[2017-04-29 20:00] VITALS: BP 120/67
[2017-04-29] MEDS: *INSULIN REGULAR(HUMULIN R)HUM 100 UNIT/ML VIAL SQ PRN (21:56)
[2017-04-29] MEDS: ONDANSETRON HCL/PF 4 MG/2 ML VIAL IV PRN (23:52)
[2017-04-30] VITALS: BP 133/79
[2017-04-30] MEDS: METRONIDAZOLE 500 MG TABLET PO SCH ×2 (01:02→08:59)
[2017-04-30 04:00] VITALS: BP 96/63
[2017-04-30] MEDS: IPRATROPIUM NEB FS 0.5 MG/2.5 ML AMPUL.NEB NEB SCH ×6 (04:07→23:23)
[2017-04-30] MEDS: ONDANSETRON HCL/PF 4 MG/2 ML VIAL IV PRN ×2 (06:15→16:41)
[2017-04-30 06:32] LABS: BASOPHILS % (AUTO) 0.2 % (0.0-2.0); EOSINOPHILS # (AUTO) 0.5 /CMM (0.0-0.7); EOSINOPHILS % (AUTO) 2.7 % (0.0-6.0); HEMATOCRIT 31 % (39-51); HEMOGLOBIN 9.8 g/dL (13.5-17.5); LYMPHOCYTES # (AUTO) 0.7 /CMM (0.8-4.8); LYMPHOCYTES % (AUTO) 3.7 % (20.0-44.0); MEAN CORPUSCULAR HEMOGLOBIN 31 PG (26.0-33.0); MEAN CORPUSCULAR HGB CONC 32 g/dl (31.0-36.0); MEAN CORPUSCULAR VOLUME 98 fL (80-96); MONOCYTES # (AUTO) 2.4 /CMM (0.1-1.30); MONOCYTES % (AUTO) 13.1 % (2.0-12.0); NEUTROPHILS # (AUTO) 14.4 /CMM (1.8-8.9); NEUTROPHILS % (AUTO) 80.3 % (43.0-81.0); PLATELET COUNT (AUTO) 640 /CMM (150-450); RDW COEFFICIENT OF VARIATION 18.1 (11.5-15.0); RED BLOOD CELL COUNT(AUTO) 3.17 MIL/uL (4.5-6.0)
[2017-04-30 06:37] LABS: ALBUMIN 2.7 g/dL (3.4-5.0); BILIRUBIN,TOTAL 0.3 mg/dL (0.2-1.0); CALCIUM, SERUM 10.9 mg/dL (8.5-10.1); CREATININE 5.5 mg/dL (0.6-1.3); MAGNESIUM 2.3 mg/dL (1.8-2.4); PHOSPHORUS 3.8 mg/dL (2.5-4.9); POTASSIUM 3.8 mmol/L (3.5-5.1)
[2017-04-30] MEDS: BLOOD SUGAR DIAGNOSTIC 1 EACH STRIP VI SCH ×4 (07:30→20:53)
[2017-04-30 08:00] VITALS: BP 91/61
[2017-04-30] MEDS: LACTOBACILLUS RHAMNOSUS GG 1 EACH CAP.SPRINK PO SCH ×2 (08:59→16:26)
[2017-04-30] MEDS: VIT B CMPLX 3/FA/VIT C/BIOTIN 1 TAB TABLET GT SCH (08:59)
[2017-04-30] MEDS: ESCITALOPRAM OXALATE (10 MG) 10 MG TABLET GT SCH (08:59)
[2017-04-30] MEDS: GABAPENTIN 300 MG CAPSULE GT SCH ×3 (08:59→16:26)
[2017-04-30] MEDS: CHLORHEXIDINE GLUCONATE 15 ML UDC MM SCH ×2 (08:59→20:47)
[2017-04-30] MEDS: SEVELAMER CARBONATE 0.8 GM POWD.PACK GT SCH ×3 (08:59→16:25)
[2017-04-30] MEDS: PANTOPRAZOLE 40 MG/PACK PACK PO SCH ×2 (08:59→20:47)
[2017-04-30] MEDS: LEVETIRACETAM SOL (5 ML) 100 MG/ML UDC GT SCH ×2 (08:59→16:25)
[2017-04-30] MEDS: MIDODRINE HCL (5MG) 5 MG TABLET PO SCH ×3 (09:00→16:25)
[2017-04-30] MEDS: METOCLOPRAMIDE HCL 10 MG TABLET GT SCH ×2 (09:00→20:47)
[2017-04-30] MEDS: PROSOURCE / PROSTAT (PYXIS) 30 ML UDC GT SCH ×2 (09:01→16:26)
[2017-04-30] MEDS: Z GUARD REMEDY 2 OZ OINT TP SCH (09:01)
[2017-04-30 12:00] VITALS: BP 91/51
[2017-04-30 16:00] VITALS: BP 120/60
[2017-04-30 20:00] VITALS: BP 121/83
[2017-05-01] VITALS (7 sets, daily range): BP systolic 68–102; BP diastolic 48–82
[2017-05-01] MEDS: RENAL NOVASOURCE 1,000 ML BOTTLE GT PRN (00:27)
[2017-05-01] MEDS: IPRATROPIUM NEB FS 0.5 MG/2.5 ML AMPUL.NEB NEB SCH ×3 (02:35→11:21)
[2017-05-01] MEDS: BLOOD SUGAR DIAGNOSTIC 1 EACH STRIP VI SCH ×2 (06:26→11:59)
[2017-05-01 06:51] LABS: BASOPHILS # (AUTO) 0.1 /CMM (0.0-0.2); BASOPHILS % (AUTO) 0.4 % (0.0-2.0); EOSINOPHILS # (AUTO) 0.7 /CMM (0.0-0.7); EOSINOPHILS % (AUTO) 5.2 % (0.0-6.0); HEMATOCRIT 32 % (39-51); HEMOGLOBIN 9.9 g/dL (13.5-17.5); LYMPHOCYTES % (AUTO) 7.1 % (20.0-44.0); MEAN CORPUSCULAR HEMOGLOBIN 31 PG (26.0-33.0); MEAN CORPUSCULAR HGB CONC 31 g/dl (31.0-36.0); MEAN CORPUSCULAR VOLUME 99 fL (80-96); MONOCYTES # (AUTO) 2.7 /CMM (0.1-1.30); MONOCYTES % (AUTO) 18.7 % (2.0-12.0); NEUTROPHILS # (AUTO) 9.7 /CMM (1.8-8.9); NEUTROPHILS % (AUTO) 68.6 % (43.0-81.0); PLATELET COUNT (AUTO) 693 /CMM (150-450); RDW COEFFICIENT OF VARIATION 19.7 (11.5-15.0); WHITE BLOOD COUNT (AUTO) 14.2 K/uL (4.3-11.0)
[2017-05-01 08:45] LABS: CREATININE 4.4 mg/dL (0.6-1.3); MAGNESIUM 2.4 mg/dL (1.8-2.4); PHOSPHORUS 4.2 mg/dL (2.5-4.9); POTASSIUM 3.8 mmol/L (3.5-5.1)
[2017-05-01] MEDS ORDERED: RXAMI XX (08:45)
[2017-05-01] MEDS ORDERED: LACT1CAP72 PO (08:45)
[2017-05-01] MEDS ORDERED: AMIK250V13 IJ (08:45)
[2017-05-01] MEDS ORDERED: METR500T PO (08:45)
[2017-05-01] MEDS: PROSOURCE / PROSTAT (PYXIS) 30 ML UDC GT SCH (09:00)
[2017-05-01] MEDS: CHLORHEXIDINE GLUCONATE 15 ML UDC MM SCH (09:04)
[2017-05-01] MEDS: GABAPENTIN 300 MG CAPSULE GT SCH ×2 (09:04→12:02)
[2017-05-01] MEDS: METOCLOPRAMIDE HCL 10 MG TABLET GT SCH (09:04)
[2017-05-01] MEDS: LEVETIRACETAM SOL (5 ML) 100 MG/ML UDC GT SCH (09:04)
[2017-05-01] MEDS: PANTOPRAZOLE 40 MG/PACK PACK PO SCH (09:05)
[2017-05-01] MEDS: VIT B CMPLX 3/FA/VIT C/BIOTIN 1 TAB TABLET GT SCH (09:05)
[2017-05-01] MEDS: LACTOBACILLUS RHAMNOSUS GG 1 EACH CAP.SPRINK PO SCH (09:05)
[2017-05-01] MEDS: ESCITALOPRAM OXALATE (10 MG) 10 MG TABLET GT SCH (09:05)
[2017-05-01] MEDS: SEVELAMER CARBONATE 0.8 GM POWD.PACK GT SCH ×2 (09:06→12:00)
[2017-05-01] MEDS: Z GUARD REMEDY 2 OZ OINT TP SCH (09:07)
[2017-05-01] MEDS: MIDODRINE HCL (5MG) 5 MG TABLET PO SCH ×2 (09:07→12:00)
[2017-05-01 10:31] LABS: BAND % (MANUAL) 1 % (0.0-5.0); EOSINOPHILS % (MANUAL) 1 % (0-4); LYMPHOCYTES % (MANUAL) 2 % (16-48); MONOCYTES % (MANUAL) 17 % (0-11.0); NEUTROPHILS % (MANUAL) 79 (42-76)
[2017-05-01] MEDS: INSULIN REGULAR, HUMAN 100 UNIT/ML 3 ML VIAL SQ PRN (12:04)
[2017-05-01] MEDS ORDERED: IV NS 0.9% 1,000 ML IV PRN (14:30)
[2017-05-01] MEDS ORDERED: ALBUMIN 25% 25 GM in PREMIX 1 EA IV ONE (14:30)
== END 2017-05-01 15:24 | DRG 314 ==
LOC: ER 20:04 → TELE-TD 22:03 → TELE1 04-19 15:43
PROVIDERS: ADMIT Internal Medicine Nephrology; ATTEND Internal Medicine Nephrology
PROC: 5A1955Z Respiratory Ventilation, Greater than 96 Consecutive Hours (ICD-10-PCS; principal; 2017-04-18)
PROC: 05H533Z Insertion of Infusion Device into Right Subclavian Vein, Percutaneous Approach (ICD-10-PCS; 2017-04-18)
PROC: 5A1D70Z Performance of Urinary Filtration, Intermittent, Less than 6 Hours Per Day (ICD-10-PCS; 2017-04-19)
PROC: 5A1D70Z Performance of Urinary Filtration, Intermittent, Less than 6 Hours Per Day (ICD-10-PCS; 2017-04-22)
PROC: 05H633Z Insertion of Infusion Device into Left Subclavian Vein, Percutaneous Approach (ICD-10-PCS; 2017-04-22)
PROC: 5A1D70Z Performance of Urinary Filtration, Intermittent, Less than 6 Hours Per Day (ICD-10-PCS; 2017-04-24)
PROC: 5A1D70Z Performance of Urinary Filtration, Intermittent, Less than 6 Hours Per Day (ICD-10-PCS; 2017-04-26)
PROC: 30233N1 Transfusion of Nonautologous Red Blood Cells into Peripheral Vein, Percutaneous Approach (ICD-10-PCS; 2017-04-26)
PROC: 5A1D70Z Performance of Urinary Filtration, Intermittent, Less than 6 Hours Per Day (ICD-10-PCS; 2017-04-28)
PROC: 5A1D70Z Performance of Urinary Filtration, Intermittent, Less than 6 Hours Per Day (ICD-10-PCS; 2017-04-30)
DX: T82.7XXA Infection and inflammatory reaction due to other cardiac and vascular devices, implants and grafts, initial encounter (principal); A41.9 Sepsis, unspecified organism; I12.0 Hypertensive chronic kidney disease with stage 5 chronic kidney disease or end stage renal disease; Z99.11 Dependence on respirator [ventilator] status; J96.11 Chronic respiratory failure with hypoxia; J84.112 Idiopathic pulmonary fibrosis; J44.9 Chronic obstructive pulmonary disease, unspecified; N18.6 End stage renal disease; N39.0 Urinary tract infection, site not specified; G82.20 Paraplegia, unspecified; L89.610 Pressure ulcer of right heel, unstageable; R13.10 Dysphagia, unspecified; E11.22 Type 2 diabetes mellitus with diabetic chronic kidney disease; Y84.9 Medical procedure, unspecified as the cause of abnormal reaction of the patient, or of later complication, without mention of misadventure at the time of the procedure; Y92.129 Unspecified place in nursing home as the place of occurrence of the external cause; Z93.3 Colostomy status; Z88.0 Allergy status to penicillin; Z88.2 Allergy status to sulfonamides; Z99.2 Dependence on renal dialysis; D64.9 Anemia, unspecified; Q05.9 Spina bifida, unspecified; M41.9 Scoliosis, unspecified; Z87.440 Personal history of urinary (tract) infections; M62.50 Muscle wasting and atrophy, not elsewhere classified, unspecified site; L98.8 Other specified disorders of the skin and subcutaneous tissue; K20.9 Esophagitis, unspecified; Z86.14 Personal history of Methicillin resistant Staphylococcus aureus infection; Z93.1 Gastrostomy status; B96.4 Proteus (mirabilis) (morganii) as the cause of diseases classified elsewhere; B96.89 Other specified bacterial agents as the cause of diseases classified elsewhere; M24.576 Contracture, unspecified foot; Z79.4 Long term (current) use of insulin
CPT/HCPCS: 31720; 36415; 36600; 71045-TC; 74018; 80048-TC; 80053-TC; 80076-TC; 80150; 80202-TC; 81000-TC; 82272-TC; 82728-TC; 82803-TC; 82962-TC; 83540-TC; 83605-TC; 83735-TC; 84100-TC; 84484-TC; 85025-TC; 85027-TC; 85730-TC; 86850-TC; 86921-TC; 87040-TC; 87070-TC; 87081-TC; 87086-TC; 87186-TC; 87400; 90935-TC; 94002-TC; 94003-TC; 94760-TC; 94762-TC; 99082-TC; A4216; A4217; A4606; A4623; A6403; A7526; J0278; J0885; J1815; J1953; J2405; J2916; J3370; J3490; J7030; J7050; J7060; J8597; P9016-BL; P9047; Q0162; Z7610

== ENCOUNTER 2017-10-01 15:50 | Inpatient (IN) | payer MEDICARE, OTHER ==
[~2017-10-01] VITALS: Ht 162.6 cm; Wt 52.6 kg
[~2017-10-01 15:50] MED LIST changes: +AMIK250V13 IJ; -AMLO5TAB2 GT; +AMLO5TAB7 GT; -EPOE1VIA4 SQ; -IPRA3AMP IH; +IPRA3AMP23 IH; +LACT1CAP72 PO; +METR500T PO; +PANT40SU GT; -PANT40SU PO; +RXAMI XX
--- NOTE | 2017-10-01 15:55 | NUR ---
PT UNABLE TO SPEAK. ABLE TO TRACH AND MOUTH WORDS. C/C OF VOMITING DURING HD. NEG ACUTE DISTRESS. VSS. STABLE CONDITION. SAFETY MEASURES IN PLACE.
[2017-10-01 16:28] VITALS: BP 156/68
--- NOTE | 2017-10-01 16:30 | NUR ---
RT NOTE PT PLACED ON VENT PER MD ORDER. SETTINGS ENDORSED BY TRANSPORT RT AC 12 500 40% +5. ALARMS SET PER PROTOCOL AND AUDIBLE. PT HAS SHILEY [address] TRACH MIDLINE AND SECURE. VENT PLUGGED IN TO RED OUTLET. AMBU BAG AT BED SIDE. PT AWAKE AND ALERT. NO DISTRESS NOTED AT MOMENT. WILL CONTINUE TO MONITOR. Addendum: 10/01/17 at 1632 by DARRIAN ALLEN RT Amended: Links added.
[2017-10-01] MEDS ORDERED: IV NS 0.9% 500 ML BAG IV ONE ×2 (17:00→18:00)
[2017-10-01] MEDS ORDERED: ONDANSETRON HCL/PF 4 MG/2 ML VIAL IVP ONE (17:00)
[2017-10-01] MEDS ORDERED: EPOE1VIA4 SQ (17:01)
[2017-10-01] MEDS ORDERED: IPRA3AMP23 IH (17:01)
[2017-10-01] MEDS ORDERED: ASCO500T9 GT (17:01)
[2017-10-01] MEDS ORDERED: ZINC220C8 GT (17:01)
[2017-10-01] MEDS ORDERED: SUCR1ORA GT (17:01)
[2017-10-01] MEDS ORDERED: MELA3TAB GT (17:01)
[2017-10-01] MEDS ORDERED: ACID1TAB12 GT (17:01)
[2017-10-01] MEDS ORDERED: ACET-868 GT (17:01)
[2017-10-01] MEDS ORDERED: ONDANSETRON HCL/PF 4 MG/2 ML VIAL ONE (17:20)
--- NOTE | 2017-10-01 17:27 | NUR ---
PT TRANSP TO CT
[2017-10-01 17:30] LABS: BASOPHILS # (AUTO) 0.1 /CMM (0.0-0.2); BASOPHILS % (AUTO) 0.6 % (0.0-2.0); EOSINOPHILS % (AUTO) 0.7 % (0.0-6.0); HEMATOCRIT 41 % (39-51); HEMOGLOBIN 13.8 g/dL (13.5-17.5); LYMPHOCYTES # (AUTO) 0.5 /CMM (0.8-4.8); LYMPHOCYTES % (AUTO) 2.2 % (20.0-44.0); MEAN CORPUSCULAR HGB CONC 34 g/dl (31.0-36.0); MEAN CORPUSCULAR VOLUME 98 fL (80-96); MONOCYTES # (AUTO) 1.8 /CMM (0.1-1.30); MONOCYTES % (AUTO) 8.5 % (2.0-12.0); NEUTROPHILS # (AUTO) 19.1 /CMM (1.8-8.9); PLATELET COUNT (AUTO) 260 /CMM (150-450); WHITE BLOOD COUNT (AUTO) 21.7 K/uL (4.3-11.0)
[2017-10-01 17:31] LABS: CALCIUM, SERUM 10.5 mg/dL (8.5-10.1); CARBON DIOXIDE 28 mmol/L (21-32); CHLORIDE 99 mmol/L (98-107); CREATININE 4.4 mg/dL (0.6-1.3); GLUCOSE 111 mg/dL (74-106); POTASSIUM 4.6 mmol/L (3.5-5.1); SODIUM SERUM 135 mmol/L (136-145); UREA NITROGEN, BLOOD 43 mg/dL (7-18)
[2017-10-01 17:37] LABS: ALANINE AMINOTRANSFERASE 61 U/L (12-78); ALBUMIN 3.3 g/dL (3.4-5.0); ALKALINE PHOSPHATASE 645 U/L (46-116); ASPARTATE AMINOTRANSFERASE 64 U/L (15-37); BILIRUBIN,DIRECT 0.1 mg/dL (0.0-0.2); BILIRUBIN,TOTAL 0.4 mg/dL (0.2-1.0)
[2017-10-01 17:39] LABS: TROPONIN I < 0.017 ng/mL (0.00-0.056)
--- NOTE | 2017-10-01 17:47 | NUR ---
CALLED NURSING SUP. FOR TELE BED
[2017-10-01] MEDS ORDERED: CEFEPIME 1 GM in IV D5W 50 ML IV ONE (18:00)
[2017-10-01] MEDS ORDERED: VANCOMYCIN 1 GM in IV D5W 250 ML IV ONE (18:00)
[2017-10-01] MEDS ORDERED: DIATR MEGLU/DIATRIZOATE SODIUM 30 ML BOTTLE (GASTROGRAPHIN) ONE (18:33)
--- NOTE | 2017-10-01 19:25 | NUR ---
PT STABLE CONDITION. ENDORSED TO [place] M[employer] ROVER.
--- NOTE | 2017-10-01 19:44 | NUR ---
TELE 117-2 FOR SEPSIS, ADMITTING
--- NOTE | 2017-10-01 20:13 | NUR ---
REPORT CALLED TO TELE 1 VIVIANA MELGAR. WILL TRANSPORT PT VIA ACLS PROTOCOL.
[2017-10-01 20:35] VITALS: BP 149/102
--- NOTE | 2017-10-01 21:00 | NUR ---
SUSTAINABLE DEVELOPMENT POLICY ANALYST INITIAL NOTE PT RECEIVED VIA GURNEY WITH RT AND SAFELY TRANSFERRED TO ROOM 102. AWAKE AND ALERT AND ABLE TO MAKE SOME NEEDS KNOWN. ON MECH VENT AND SETTINGS WELL TOLERATED. HOB ELEVATED AND ON ASPIRATION PRECAUTIONS. NOTED WITH EMESIS COFFEE GROUNDS. SUCTIONED NEEDED AND WELL TOLERATED. IV RAC #20CLEAN, DRY AND FLUSHING WELL. SUPRA PUBIC IN PLACE AND DRAINING BY GRAVITY. COLOSTOMY IN PLACE AND CLEAN. LCW HD PERMACATH IN PLACE. LEFT MESSAGE TO IP NETWORK ARCHITECT DR CHAIDEZ. WILL AWAIT CALL BACK FOR ORDERS.
--- NOTE | 2017-10-01 22:05 | NUR ---
RT PATIENT REC'D TRANSPORT FROM ER. PATIENT TRACHED ON [facility] VENT WITH NOTED SETTINGS REBECCA WELL. VENT ALARMS CHECKED + AUDIBLE. CUFF PRESSURE CHECKED RELIEF PHARMACIST. PATIENT SUCTIONED WITH SMALL/MOD AMT OF PALE SEMITHICK SECRETIONS. PATIENT AWAKE AND RESPONSIVE. AMBU BAG AT HOB Addendum: 10/01/17 at 2208 by OTILIA DE LA TORRE RT Amended: Links added.
[2017-10-01 23:27] LABS: BASOPHILS % (AUTO) 0.1 % (0.0-2.0); HEMATOCRIT 49 % (39-51); LYMPHOCYTES # (AUTO) 1.2 /CMM (0.8-4.8); MEAN CORPUSCULAR HGB CONC 31 g/dl (31.0-36.0); MEAN CORPUSCULAR VOLUME 102 fL (80-96); MONOCYTES # (AUTO) 1.1 /CMM (0.1-1.30); MONOCYTES % (AUTO) 6.6 % (2.0-12.0); NEUTROPHILS # (AUTO) 14.6 /CMM (1.8-8.9); NEUTROPHILS % (AUTO) 85.3 % (43.0-81.0); PLATELET COUNT (AUTO) 268 /CMM (150-450); RDW COEFFICIENT OF VARIATION 19.8 (11.5-15.0); RED BLOOD CELL COUNT(AUTO) 4.82 MIL/uL (4.5-6.0); WHITE BLOOD COUNT (AUTO) 17.1 K/uL (4.3-11.0)
[2017-10-01] MEDS: PANTOPRAZOLE 40 MG VIAL IV SCH (23:45)
[2017-10-02] VITALS: BP 105/71
[2017-10-02] MEDS ORDERED: ACETAMINOPHEN 325 MG TABLET PO PRN
[2017-10-02] MEDS ORDERED: INSULIN REGULAR, HUMAN 100 UNIT/ML 10 ML VIAL SQ PRN
[2017-10-02] MEDS ORDERED: INSULIN ASPART SQ PRN
[2017-10-02] MEDS ORDERED: LORAZEPAM 1 MG TABLET GT PRN
[2017-10-02] MEDS ORDERED: Medication Not On Formulary EA (Ipratropium/Albuterol Sulfate (Duoneb 2.5-0.5 Mg/3 Ml So IH PRN
[2017-10-02] MEDS ORDERED: ALBUTEROL FS 2.5 MG/0.5 ML VIAL.NEB IH PRN
--- NOTE | 2017-10-02 00:11 | NUR ---
PROFESSIONAL BUILDER NOTE SPOKE WITH BOOKKEEPERS SUPERVISOR DR. CHAIDEZ WITH ORDERS FOR ROUTINE LABS IN AM, NPO, PROTONIX 40MG IVP Q12H, ZOFRAN 4MG IVP Q6H PRN, AND ADMIT TO ORDERS. ORDERS NOTED AND CARRIED OUT.
[2017-10-02] MEDS ORDERED: INSULIN REGULAR, HUMAN 100 UNIT/ML 3 ML VIAL SQ PRN (00:30)
[2017-10-02] MEDS: SUCRALFATE 1 G/10 ML UDC GT SCH ×4 (01:12→17:24)
[2017-10-02] MEDS: BLOOD SUGAR DIAGNOSTIC 1 EACH STRIP IN SCH ×4 (01:27→17:24)
[2017-10-02] MEDS: ONDANSETRON HCL/PF 4 MG/2 ML VIAL IV PRN ×2 (01:40→08:24)
[2017-10-02 01:54] LABS: EOSINOPHILS % (MANUAL) 1 % (0-4); LYMPHOCYTES % (MANUAL) 2 % (16-48); MONOCYTES % (MANUAL) 3 % (0-11.0); NEUTROPHILS % (MANUAL) 94 (42-76)
[2017-10-02] MEDS ORDERED: VANCOMYCIN 1 GM in IV NS 0.9% 250 ML IV SCH (02:00)
[2017-10-02 04:00] VITALS: BP 94/60
[2017-10-02 06:32] LABS: BASOPHILS % (AUTO) 0.1 % (0.0-2.0); EOSINOPHILS % (AUTO) 1.7 % (0.0-6.0); HEMATOCRIT 44 % (39-51); HEMOGLOBIN 13.7 g/dL (13.5-17.5); LYMPHOCYTES # (AUTO) 0.5 /CMM (0.8-4.8); LYMPHOCYTES % (AUTO) 3.8 % (20.0-44.0); MEAN CORPUSCULAR HGB CONC 31 g/dl (31.0-36.0); MEAN CORPUSCULAR VOLUME 101 fL (80-96); MONOCYTES # (AUTO) 1.4 /CMM (0.1-1.30); MONOCYTES % (AUTO) 11.5 % (2.0-12.0); NEUTROPHILS # (AUTO) 10.3 /CMM (1.8-8.9); NEUTROPHILS % (AUTO) 82.9 % (43.0-81.0); PLATELET COUNT (AUTO) 249 /CMM (150-450); RDW COEFFICIENT OF VARIATION 20.3 (11.5-15.0); RED BLOOD CELL COUNT(AUTO) 4.33 MIL/uL (4.5-6.0); WHITE BLOOD COUNT (AUTO) 12.4 K/uL (4.3-11.0)
--- NOTE | 2017-10-02 07:00 | NUR ---
RN NOTES RECEIVED PT ON BED, ALERT, VENT/ TRACH DEPENDENT, TOLERATING CURRENT VENT SETTING WELL, RESPIRATION EVEN AND UNLABORED, NO SOB NOTED , TRACH CARE DONE , ON TELE SR HR IN 70'S , NPO , RAC IV SITE G 20 CDI, SUPRA PUBIC IN PLACE, COLOSTOMY IN PLACE AND CLEAN. LCW HD PERMCATH IN PLACE. SR UP x3, CALL LIGHT WITHIN EASY REACH, BED LOCKED AND IN LOWEST POSITION , CONTINUE TO MONITOR
[2017-10-02 07:11] LABS: CALCIUM, SERUM 11.3 mg/dL (8.5-10.1); CREATININE 5.1 mg/dL (0.6-1.3); MAGNESIUM 2.5 mg/dL (1.8-2.4); PHOSPHORUS 4.5 mg/dL (2.5-4.9); POTASSIUM 4.2 mmol/L (3.5-5.1)
[2017-10-02] MEDS ORDERED: BLOOD SUGAR DIAGNOSTIC 1 EACH STRIP IN SCH ×2 (07:30)
[2017-10-02 08:00] VITALS: BP 90/65
[2017-10-02] MEDS: ZINC SULFATE 220 MG CAPSULE GT SCH (08:23)
[2017-10-02] MEDS: LEVETIRACETAM SOL (5 ML) 100 MG/ML UDC GT SCH ×2 (08:23→16:52)
[2017-10-02] MEDS: PANTOPRAZOLE 40 MG VIAL IV SCH ×2 (08:23→21:03)
[2017-10-02] MEDS: VIT B CMPLX 3/FA/VIT C/BIOTIN 1 TAB TABLET GT SCH (08:23)
[2017-10-02] MEDS: METOCLOPRAMIDE HCL 10 MG TABLET GT SCH ×2 (08:23→20:18)
[2017-10-02] MEDS: CHLORHEXIDINE GLUCONATE 15 ML UDC MM SCH ×2 (08:23→21:03)
[2017-10-02] MEDS: ACIDOPHILUS/BULGARICUS 1 EACH TAB.CHEW GT SCH ×2 (08:23→16:53)
[2017-10-02] MEDS: ESCITALOPRAM OXALATE (10 MG) 10 MG TABLET GT SCH (08:24)
[2017-10-02] MEDS: ASCORBIC ACID 500 MG TABLET GT SCH (08:24)
[2017-10-02] MEDS: GABAPENTIN 100 MG CAPSULE GT SCH ×3 (08:24→16:53)
[2017-10-02] MEDS ORDERED: FEE PK DOSING 1 MIN EA MC ONE (10:07)
[2017-10-02] MEDS ORDERED: VANCOMYCIN 500 MG in IV D5W 100 ML IV PRN (10:13)
[2017-10-02] MEDS ORDERED: IPRATROPIUM NEB FS 0.5 MG/2.5 ML AMPUL.NEB NEB PRN (10:30)
[2017-10-02] MEDS: MIDODRINE HCL (5MG) 5 MG TABLET GT SCH ×3 (11:07→16:53)
[2017-10-02 12:00] VITALS: BP 84/53
--- NOTE | 2017-10-02 13:27 | NUR ---
RN NOTES BP=84/65 ,HR=85 , DR SALDANA NOTIFED , 500CC NS BULOS ORDERED . CONTINUE TO MONITOR VSS .
[2017-10-02] MEDS ORDERED: IV NS 0.9% 500 ML IV ONE (13:30)
[2017-10-02] MEDS ORDERED: ALBUMIN 25% 25 GM in PREMIX 1 EA IV ONE (14:00)
[2017-10-02 16:00] VITALS: BP 118/70
--- NOTE | 2017-10-02 18:00 | NUR ---
RN NOTES PT STABLE , STILL NPO PER DR. SALDANA, TRACH SUCTIONING DONE, COLOSTOMY BAG AND SUPRA PUBIC CATH INTACT, SR UP x3, ALL LIGHT WITHIN EASY REACH, WILL ENDORSE TO [place]GNOS CONSULTANT NURSE FOR CLAUDIA .
--- NOTE | 2017-10-02 19:14 | NUR ---
SKIVING MACHINE OPERATOR NOTES RECEIVED PT ON BED. ON [facility] VENT SETTING SATURATING WELL. ON TELE MONITOR SINUS LINETTE 50. IV ACCESS ON RAC #20 SL PATENT AND INTACT. HEAD OF BED ELEVATED. SIDE RAILS UP. CALL LIGHT IS PLACED WITHIN REACH. WILL CONTINUE TO MONITOR PT CLOSELY.
[2017-10-02 20:00] VITALS: BP 136/50
[2017-10-02] MEDS: MUPIROCIN OINT 2% 22 GM TUBE SCH (21:00)
[2017-10-02] MEDS: CEFEPIME 1 GM in IV D5W 50 ML IV SCH (21:02)
[2017-10-02] MEDS ORDERED: Medication Not On Formulary EA (Melatonin 3 MG) GT SCH (22:00)
[2017-10-03] VITALS: BP 121/73
[2017-10-03] MEDS: DEXTROSE 50%-WATER 50 ML DISP.SYRIN IV PRN ×2 (00:08→05:11)
[2017-10-03] MEDS: BLOOD SUGAR DIAGNOSTIC 1 EACH STRIP IN SCH ×5 (00:11→23:07)
--- NOTE | 2017-10-03 01:12 | NUR ---
MACHINE MAINTENANCE SUPERVISOR NOTES BLOOD SUGAR 60MG/DL. DEXTROSE 50%IV GIVEN. RECHECKED AFTER 30MINS. BLOOD SUGAR IS 164MG/DL.
[2017-10-03 04:00] VITALS: BP 142/84
[2017-10-03] MEDS: SUCRALFATE 1 G/10 ML UDC GT SCH ×5 (05:19→23:07)
--- NOTE | 2017-10-03 05:55 | NUR ---
COIN MACHINE SERVICE REPAIRER NOTES BLOOD SUGAR OF 52MG/DL. PT ASYMPTOMATIC. GIVEN DEXTROSE 50%. RECHECKED AFTER 30MINS. BLOOD SUGAR IS 182MG/DL. CHARGED NURSE INFORMED. WILL CONTINUE TO MONITOR PT CLOSELY.
--- NOTE | 2017-10-03 07:27 | NUR ---
SHEET METAL DUCT INSTALLER NOTES NO ACUTE CHANGES NOTED DURING THE SHIFT. PROVIDED COMFORT AND SAFETY. WILL ENDORSE TO THE AM NURSE FOR CLAUDIA.
[2017-10-03 08:00] VITALS: BP 93/55
--- NOTE | 2017-10-03 08:00 | NUR ---
TELE1/RN AM SHIFT INITIAL NOTES RECEIVED PT ASLEEP IN BED, PT A/O 2-3, AROUSEABLE, ABLE TO MAKE NEED KNOWN (MOUTH WORDS), NO ACUTE CHANGE OF CONDITION, NO GRIMACING. VENTILATOR DEPENDENT WITH RATES SET PRESCRIBED, SATURATING @ 100%, LUNG SOUNDS DIMINISHED, SUCTIONED FOR AIRWAY CLEARANCE. ON TELE WITH SINUS LINETTE, HR 59. IV SITE FLUSHED, PATENT, SL. PT ON NPO STATUS. PT IS COMFORTABLE. SCHEDULED AM MEDS TO BE GIVEN. CL WITHIN REACHED, SAFETY MAINTAINED AND ISOLATION OBSERVED. ON GOING MONITORING.
[2017-10-03] MEDS: LEVETIRACETAM SOL (5 ML) 100 MG/ML UDC GT SCH ×2 (08:11→16:11)
[2017-10-03] MEDS: ESCITALOPRAM OXALATE (10 MG) 10 MG TABLET GT SCH (08:11)
[2017-10-03] MEDS: ACIDOPHILUS/BULGARICUS 1 EACH TAB.CHEW GT SCH ×2 (08:11→16:11)
[2017-10-03] MEDS: VIT B CMPLX 3/FA/VIT C/BIOTIN 1 TAB TABLET GT SCH (08:11)
[2017-10-03] MEDS: ASCORBIC ACID 500 MG TABLET GT SCH (08:12)
[2017-10-03] MEDS: MIDODRINE HCL (5MG) 5 MG TABLET GT SCH ×3 (08:12→16:12)
[2017-10-03] MEDS: ZINC SULFATE 220 MG CAPSULE GT SCH (08:12)
[2017-10-03] MEDS: METOCLOPRAMIDE HCL 10 MG TABLET GT SCH ×2 (08:12→21:11)
[2017-10-03] MEDS: GABAPENTIN 100 MG CAPSULE GT SCH ×3 (08:12→16:11)
--- NOTE | 2017-10-03 08:15 | NUR ---
RT PATIENT REC'D TRACHED ON [facility] VENT WITH ORDERED SETTINGS REBECCA WELL. VENT ALARMS CHECKED + AUDIBLE. CUFF PRESSURE CHECKED SECTION GANG WORKER. PATIENT AWAKE RESPONSIVE TO VERBAL COMMANDS, NO SOB NOTED. PATIENT SUCTIONED WITH MOD AMT OF PALE SEMITHICK SECRETIONS. B/S LUCIA. AMBU BAG AT HOB Addendum: 10/03/17 at 0847 by OTILIA DE LA TORRE RT Amended: Links added.
[2017-10-03] MEDS: CHLORHEXIDINE GLUCONATE 15 ML UDC MM SCH ×2 (09:21→21:11)
[2017-10-03] MEDS: PANTOPRAZOLE 40 MG VIAL IV SCH ×2 (09:21→21:11)
[2017-10-03] MEDS: MUPIROCIN OINT 2% 22 GM TUBE SCH ×2 (09:23→21:12)
[2017-10-03] MEDS ORDERED: IV NS 0.9% 250 ML IV PRN (11:00)
[2017-10-03 12:00] VITALS: BP 98/55
[2017-10-03] MEDS ORDERED: INSULIN ASPART/LISPRO 100 UNIT/ML CARTRIDGE SQ PRN ×2 (12:00→12:03)
[2017-10-03] MEDS ORDERED: BLOOD SUGAR DIAGNOSTIC 1 EACH STRIP IN SCH (12:00)
[2017-10-03] MEDS ORDERED: DEXTROSE 50%-WATER 50 ML DISP.SYRIN IV PRN ×2 (12:00→12:04)
[2017-10-03] MEDS: NEPRO 1,000 ML BOTTLE GT PRN (12:15)
--- NOTE | 2017-10-03 13:21 | NUR ---
TELE1/PLASTIC SHEETING CUTTER OF CARE PT ENDORSED TO NURSE DEE TO CONTINUE CARE.
--- NOTE | 2017-10-03 13:25 | NUR ---
RN NOTE RECEIVED REPORT FROM JEAN-PIERRE. RECEIVED PATIENT AWAKE ALERT ANS ORIENTED X2-3, HE IS ABLE TO VERBALIZE NEEDS AND MAKE THINGS KNOWN. VENT/TRACH DEPENDENT WITH APPROPRIATE SETTINGS. PATIENT IS SATURATING WELL WITH NO ACUTE CHANGES OR DISTRESS NOTED. ON DRONE PILOT OF SINUS LINETTE HR OF 53. IV SITE INTACT AND PATENT. GT SITE INTACT AND PATENT WITH ONGOING FEEDINGS OF NEPRO 40ML/HR TOLERATING WELL WITH NO RESIDUALS NOTED. PATIENTS COLOSTOMY BAG INTACT WITH STOOL NOTED. PATIENT SUPRAPUBIC CATH IS INTACT WITH LITTLE DRAINING. PATIENT REMAINS COMFORTABLE. ALL SAFETY MEASURES DONE. BED LOCKED AND LOW POSITION. PLACED CALL LIGHT WITHIN REACH. WILL CONTINUE TO MONITOR
[2017-10-03 16:00] VITALS: BP 91/54
[2017-10-03 16:48] LABS: APPEARANCE,URINE CLOUDY (CLEAR); BILIRUBIN,URINE NEGATIVE (NEGATIVE); BLOOD, URINE 3+ Ery/uL (NEGATIVE); COLOR,URINE YELLOW (YELLOW); KETONES,URINE NEGATIVE (NEGATIVE); LEUKOCYTE ESTERASE ,URINE 3+ (NEGATIVE); NITRITE, URINE POSITIVE (NEGATIVE); PROTEIN,URINE 3+ mg/dl (NEGATIVE); UGLUCOSE NEGATIVE (NEGATIVE); UROBILINOGEN,URINE 0.2 EU/dL (0.2)
[2017-10-03 16:52] LABS: PH,URINE >9.0 (5.0-8.0)
[2017-10-03 16:53] LABS: BACTERIA,URINE Many /HPF (None Seen); SQUAMOUS EPITHELIAL CELL,UR None Seen /HPF (None Seen); WBC,URINE TOO NUMEROUS TO COUN /HPF (0-3)
--- NOTE | 2017-10-03 19:06 | NUR ---
RN NOTE PATIENT REMAINED STABLE THROUGHOUT SHIFT. NO ACUTE CHANGES OR DISTRESS NOTED. WILL ENDORSE TO NEXT SHIFT TO CONTINUE TO MONITOR CONTINUITY OF CARE
[2017-10-03 20:00] VITALS: BP 123/84
[2017-10-03] MEDS: CEFEPIME 1 GM in IV D5W 50 ML IV SCH (21:12)
[2017-10-04] VITALS (7 sets, daily range): BP systolic 91–136; BP diastolic 54–80
[2017-10-04] MEDS: SUCRALFATE 1 G/10 ML UDC GT SCH ×4 (05:43→23:34)
[2017-10-04] MEDS: BLOOD SUGAR DIAGNOSTIC 1 EACH STRIP IN SCH ×4 (05:56→23:58)
--- NOTE | 2017-10-04 07:15 | NUR ---
SUPERVISING FIRE MARSHAL NOTE PT REMAINED STABLE DURING SHIFT. NO ACUTE DISTRESS NOTED. CURRENTLY RECEIVING DIALYSIS AT BEDSIDE. ALL NEEDS ATTENDED TO PROMPTLY. VENT SETTINGS WELL TOLERATED. REPOSITIONED Q2H AND SUCTIONED NEEDED. WILL ENDORSE TO NEXT SHIFT FOR CONTINUITY OF CARE.
--- NOTE | 2017-10-04 07:50 | NUR ---
RT PATIENT REC'D TRACHED ON [facility] VENT WITH ORDERED SETTINGS REBECCA WELL. VENT ALARMS CHECKED + AUDIBLE. CUFF PRESSURE CHECKED CLINICAL QUALITY RN. PATIENT RESPONSIVE TO VERBAL COMMANDS, NO SOB NOTED. PATIENT SUCTIONED WITH MOD AMT OF PALE SEMITHICK SECRETIONS. B/S LUCIA. AMBU BAG AT HOB Addendum: 10/04/17 at 1544 by OTILIA DE LA TORRE RT Amended: Links added.
--- NOTE | 2017-10-04 08:00 | NUR ---
TELE1/RN AM SHIFT INITIAL NOTES RECEIVED PT AWAKE IN BED, WITH ON GOING DIALYSIS TX, PT A/O 2-3, ABLE TO MAKE NEED KNOWN (MOUTH WORDS), NO ACUTE CHANGE OF CONDITION, DENIES ANY SYMPTOMS. VENTILATOR DEPENDENT WITH RATES SET PRESCRIBED, SATURATING @ 100%, LUNG SOUNDS CLEAR, SUCTIONED FOR AIRWAY CLEARANCE. ON TELE WITH SINUS RHYTHM, HR 77. IV SITE FLUSHED, PATENT WITH NO S/S OF INFECTION, SL. GTF ON GOING @ 40CC/HR, NO GASTRIC RESIDUAL NOTED, FLUSHED, PATENT. SUBPRAPUBIC CATHETER INTACT, NO OUTPUT AT THIS TIME. COLOSTOMY BAG IN PLACED, WITH SOFT BROWN FECAL OUTPUT. PT IS COMFORTABLE. SCHEDULED AM MEDS TO BE GIVEN. SAFETY MAINTAINED AND ISOLATION OBSERVED. ON GOING MONITORING. Addendum: 10/04/17 at 0949 by MI ROBISON RN ADDENDUM: DIALYSIS TX COMPLETED, REMOVED 1 LITER OF FLUID, AFTER DIALYSIS BP 90/56, PT TOLERATED TX.
[2017-10-04] MEDS: CHLORHEXIDINE GLUCONATE 15 ML UDC MM SCH ×2 (08:20→21:04)
[2017-10-04] MEDS: PANTOPRAZOLE 40 MG VIAL IV SCH ×2 (08:20→21:04)
[2017-10-04] MEDS: MUPIROCIN OINT 2% 22 GM TUBE SCH ×2 (08:20→21:06)
[2017-10-04] MEDS: ACIDOPHILUS/BULGARICUS 1 EACH TAB.CHEW GT SCH ×2 (08:20→16:35)
[2017-10-04] MEDS: LEVETIRACETAM SOL (5 ML) 100 MG/ML UDC GT SCH ×2 (08:21→16:35)
[2017-10-04] MEDS: MIDODRINE HCL (5MG) 5 MG TABLET GT SCH ×3 (08:22→16:36)
[2017-10-04] MEDS: METOCLOPRAMIDE HCL 10 MG TABLET GT SCH ×2 (08:22→21:04)
[2017-10-04] MEDS: ZINC SULFATE 220 MG CAPSULE GT SCH (08:22)
[2017-10-04] MEDS: ASCORBIC ACID 500 MG TABLET GT SCH (08:22)
[2017-10-04] MEDS: GABAPENTIN 100 MG CAPSULE GT SCH ×3 (08:22→16:35)
[2017-10-04] MEDS: VIT B CMPLX 3/FA/VIT C/BIOTIN 1 TAB TABLET GT SCH (08:22)
[2017-10-04] MEDS: ESCITALOPRAM OXALATE (10 MG) 10 MG TABLET GT SCH (08:22)
--- NOTE | 2017-10-04 12:00 | NUR ---
TELE1/RN NOON ROUNDS PT SUCTIONED AND REPOSITIONED. NO CHANGE OF CONDITION. ON GOING MONITORING.
[2017-10-04] MEDS ORDERED: Z GUARD REMEDY 4 OZ OINT TP PRN (15:30)
[2017-10-04] MEDS: NEPRO 1,000 ML BOTTLE GT PRN (16:32)
--- NOTE | 2017-10-04 19:39 | NUR ---
TELE1/RN AM SHIFT END NOTES ALL NEEDS MET. NO ACUTE CHANGE OF CONDITION NOTED DURING THE SHIFT. PT ENDORSED TO PM NURSE TO CONTINUE CARE. CL WITHIN REACHED, SAFETY MAINTAINED AND ISOLATION OBSERVED.
--- NOTE | 2017-10-04 20:00 | NUR ---
TELE 1 RN NOTE PT IN BED ASLEEP, AROUSABLE. NO VENT/TRACH TOLERATING SETTINGS WELL. NO DISTRESS OR DISCOMFORT NOTED. DENIES PAIN. ON TELE MONITOR SR WITH OCCASSIONAL PVC'S HR 61. GTF NEPRO INFUSING WELL AT 40 ML/HR, 0 ML RESIDUAL NOTED. COLOSTOMY BAG INTACT DRAINING LIQUIDY STOOL. REPOSITION HIM Q2H, KEPT HIM DRY AND CLEAN. ALL NEEDS ATTENDED. SIDE RAILS UP X 3 AND CALL LIGHT WITHIN REACH. VSS. CONTINUE TO MONITOR HIM.
[2017-10-04] MEDS: CEFEPIME 1 GM in IV D5W 50 ML IV SCH (21:05)
[2017-10-05] VITALS: BP 120/79
[2017-10-05 04:00] VITALS: BP 114/68
[2017-10-05] MEDS: BLOOD SUGAR DIAGNOSTIC 1 EACH STRIP IN SCH ×4 (06:24→23:43)
[2017-10-05] MEDS: SUCRALFATE 1 G/10 ML UDC GT SCH ×4 (06:34→23:22)
--- NOTE | 2017-10-05 07:09 | NUR ---
TELE 1 RN NOTE NO CHANGE IN CONDITION. PT ENDORSE TO DAY SHIFT NURSE FOR CONTINUE TO CARE.
[2017-10-05 08:00] VITALS: BP 110/75
--- NOTE | 2017-10-05 08:00 | NUR ---
TELE1/RN AM SHIFT INITIAL NOTES RECEIVED PT ASLEEP IN BED, PT A/O 2-3, ABLE TO MAKE NEED KNOWN (MOUTH WORDS), NO ACUTE CHANGE OF CONDITION, DENIES ANY SYMPTOMS. VENTILATOR DEPENDENT WITH RATES SET PRESCRIBED, SATURATING @ 98%, LUNG SOUNDS CLEAR, SUCTIONED FOR AIRWAY CLEARANCE. ON TELE WITH SINUS LINETTE, HR 58. IV SITE FLUSHED, PATENT WITH NO S/S OF INFECTION, SL. GTF ON GOING @ 40CC/HR, NO GASTRIC RESIDUAL NOTED, FLUSHED, PATENT. SUBPRAPUBIC CATHETER INTACT, NO OUTPUT AT THIS TIME. COLOSTOMY BAG IN PLACED, WITH SOFT TO LIQUID BROWN FECAL OUTPUT. PT IS COMFORTABLE. SCHEDULED AM MEDS TO BE GIVEN. SAFETY MAINTAINED AND ISOLATION OBSERVED. ON GOING MONITORING.
[2017-10-05 08:37] LABS: ALBUMIN 3.3 g/dL (3.4-5.0); BILIRUBIN,TOTAL 0.4 mg/dL (0.2-1.0); CALCIUM, SERUM 11.3 mg/dL (8.5-10.1); CREATININE 4.4 mg/dL (0.6-1.3); MAGNESIUM 2.1 mg/dL (1.8-2.4); POTASSIUM 3.3 mmol/L (3.5-5.1); TOTAL PROTEIN, SERUM 8.8 g/dL (6.4-8.2)
[2017-10-05 08:38] LABS: BASOPHILS # (AUTO) 0.1 /CMM (0.0-0.2); BASOPHILS % (AUTO) 0.6 % (0.0-2.0); EOSINOPHILS % (AUTO) 6.4 % (0.0-6.0); HEMATOCRIT 42 % (39-51); HEMOGLOBIN 13.1 g/dL (13.5-17.5); LYMPHOCYTES # (AUTO) 0.7 /CMM (0.8-4.8); LYMPHOCYTES % (AUTO) 6.5 % (20.0-44.0); MEAN CORPUSCULAR HGB CONC 31 g/dl (31.0-36.0); MEAN CORPUSCULAR VOLUME 101 fL (80-96); MONOCYTES # (AUTO) 1.2 /CMM (0.1-1.30); MONOCYTES % (AUTO) 11.9 % (2.0-12.0); NEUTROPHILS # (AUTO) 7.6 /CMM (1.8-8.9); NEUTROPHILS % (AUTO) 74.6 % (43.0-81.0); PLATELET COUNT (AUTO) 245 /CMM (150-450); RDW COEFFICIENT OF VARIATION 19.5 (11.5-15.0); RED BLOOD CELL COUNT(AUTO) 4.18 MIL/uL (4.5-6.0); WHITE BLOOD COUNT (AUTO) 10.2 K/uL (4.3-11.0)
[2017-10-05] MEDS: CHLORHEXIDINE GLUCONATE 15 ML UDC MM SCH ×2 (09:18→21:38)
[2017-10-05] MEDS: ZINC SULFATE 220 MG CAPSULE GT SCH (09:18)
[2017-10-05] MEDS: METOCLOPRAMIDE HCL 10 MG TABLET GT SCH ×2 (09:18→21:39)
[2017-10-05] MEDS: PANTOPRAZOLE 40 MG VIAL IV SCH ×2 (09:18→21:38)
[2017-10-05] MEDS: ASCORBIC ACID 500 MG TABLET GT SCH (09:18)
[2017-10-05] MEDS: LEVETIRACETAM SOL (5 ML) 100 MG/ML UDC GT SCH ×2 (09:18→16:58)
[2017-10-05] MEDS: GABAPENTIN 100 MG CAPSULE GT SCH ×3 (09:18→16:58)
[2017-10-05] MEDS: ESCITALOPRAM OXALATE (10 MG) 10 MG TABLET GT SCH (09:18)
[2017-10-05] MEDS: ACIDOPHILUS/BULGARICUS 1 EACH TAB.CHEW GT SCH ×2 (09:18→16:58)
[2017-10-05] MEDS: VIT B CMPLX 3/FA/VIT C/BIOTIN 1 TAB TABLET GT SCH (09:18)
[2017-10-05] MEDS: MIDODRINE HCL (5MG) 5 MG TABLET GT SCH ×3 (09:19→16:58)
[2017-10-05] MEDS: MUPIROCIN OINT 2% 22 GM TUBE SCH ×2 (09:19→21:39)
--- NOTE | 2017-10-05 09:54 | NUR ---
WOUND CARE CONSULT: PT FOLLOWED BY SURGICAL AND PODIATRY TEAMS FOR WOUNDS. DEFER TO SURGICAL/PODIATRY FOR WOUND TREATMENT PLAN. ALL SKIN PROTECTION AND PRESSURE ULCER PREVENTION RECOMMENDATIONS DISCUSSED WITH NURSING STAFF. FIRST STEP LOW AIRLOSS MATTRESS ORDERED. WILL SEE PRN.
[2017-10-05 12:00] VITALS: BP 116/68
--- NOTE | 2017-10-05 12:00 | NUR ---
TELE1/RN NOON ROUNDS NO ACUTE CHANGE OF CONDITION, PT SUCTIONED AND REPOSITIONED. ON GOING MONITORING.
[2017-10-05 16:00] VITALS: BP 127/75
[2017-10-05] MEDS: NEPRO 1,000 ML BOTTLE GT PRN (16:58)
[2017-10-05 20:00] VITALS: BP 127/75
--- NOTE | 2017-10-05 20:01 | NUR ---
PT RECEIVED TRACHED ON VENT. PT SLEEPING. NO RESP DISTRESS NOTED. TOLERATING VENT SETTINGS. VENT ALARMS SET AND AUDIBLE. AMBU BAG AT BEDSIDE. SX'D FOR SML AMT OF THICK PALE SECRETIONS. TRACH SECURED. VENT PLUGGED INTO RED OUTLET. WILL CONTINUE TO MONITOR. Addendum: 10/05/17 at 2002 by AC CERNA RT Amended: Links added.
[2017-10-05] MEDS: CEFEPIME 1 GM in IV D5W 50 ML IV SCH (21:39)
[2017-10-06] VITALS: BP 103/67
[2017-10-06 04:00] VITALS: BP_SYST 102; BP_SYST 103; BP_DIAS 45; BP_DIAS 67
[2017-10-06] MEDS: SUCRALFATE 1 G/10 ML UDC GT SCH ×2 (05:37→11:26)
[2017-10-06] MEDS: BLOOD SUGAR DIAGNOSTIC 1 EACH STRIP IN SCH ×2 (05:37→11:26)
--- NOTE | 2017-10-06 06:27 | NUR ---
RN NOTE PATIENT RESTED WELL AT NIGHT, NO S/S OF BLEEDING NOTED, NO NAUSEA/VOMITING NOTED, NO RESPIRATORY DISTRESS NOTED, ALL SAFETY MEASURES TAKEN, TURNED AND REPOSITION Q 2 HOURS, TOLERATED TUBE FEEDING WELL, WILL ENDORSE TO AM SHIFT FOR CLAUDIA
[2017-10-06 06:44] LABS: BASOPHILS # (AUTO) 0.1 /CMM (0.0-0.2); BASOPHILS % (AUTO) 0.5 % (0.0-2.0); EOSINOPHILS % (AUTO) 6.5 % (0.0-6.0); HEMATOCRIT 42 % (39-51); HEMOGLOBIN 12.9 g/dL (13.5-17.5); LYMPHOCYTES # (AUTO) 0.8 /CMM (0.8-4.8); LYMPHOCYTES % (AUTO) 7.1 % (20.0-44.0); MEAN CORPUSCULAR HGB CONC 31 g/dl (31.0-36.0); MEAN CORPUSCULAR VOLUME 101 fL (80-96); MONOCYTES # (AUTO) 1.2 /CMM (0.1-1.30); MONOCYTES % (AUTO) 11.1 % (2.0-12.0); NEUTROPHILS % (AUTO) 74.8 % (43.0-81.0); PLATELET COUNT (AUTO) 264 /CMM (150-450); RDW COEFFICIENT OF VARIATION 19.3 (11.5-15.0); RED BLOOD CELL COUNT(AUTO) 4.14 MIL/uL (4.5-6.0); WHITE BLOOD COUNT (AUTO) 10.7 K/uL (4.3-11.0)
[2017-10-06 06:58] LABS: ALBUMIN 3.3 g/dL (3.4-5.0); BILIRUBIN,TOTAL 0.4 mg/dL (0.2-1.0); CREATININE 5.5 mg/dL (0.6-1.3); MAGNESIUM 2.3 mg/dL (1.8-2.4); PHOSPHORUS 4.3 mg/dL (2.5-4.9); POTASSIUM 3.9 mmol/L (3.5-5.1); TOTAL PROTEIN, SERUM 8.8 g/dL (6.4-8.2)
[2017-10-06 08:00] VITALS: BP 94/65
[2017-10-06] MEDS: LEVETIRACETAM SOL (5 ML) 100 MG/ML UDC GT SCH (08:07)
[2017-10-06] MEDS: PANTOPRAZOLE 40 MG VIAL IV SCH (08:07)
[2017-10-06] MEDS: ASCORBIC ACID 500 MG TABLET GT SCH (08:07)
[2017-10-06] MEDS: CHLORHEXIDINE GLUCONATE 15 ML UDC MM SCH (08:07)
[2017-10-06] MEDS: GABAPENTIN 100 MG CAPSULE GT SCH ×2 (08:07→11:57)
[2017-10-06] MEDS: ACIDOPHILUS/BULGARICUS 1 EACH TAB.CHEW GT SCH (08:07)
[2017-10-06] MEDS: VIT B CMPLX 3/FA/VIT C/BIOTIN 1 TAB TABLET GT SCH (08:07)
[2017-10-06] MEDS: ESCITALOPRAM OXALATE (10 MG) 10 MG TABLET GT SCH (08:07)
[2017-10-06] MEDS: ZINC SULFATE 220 MG CAPSULE GT SCH (08:07)
[2017-10-06] MEDS: MIDODRINE HCL (5MG) 5 MG TABLET GT SCH ×2 (08:12→11:57)
[2017-10-06] MEDS: METOCLOPRAMIDE HCL 10 MG TABLET GT SCH (08:13)
[2017-10-06] MEDS: MUPIROCIN OINT 2% 22 GM TUBE SCH (08:18)
[2017-10-06 12:00] VITALS: BP 109/76
[2017-10-06 16:00] VITALS: BP 124/81
[2017-10-08] MEDS ORDERED: OMEP20CA10 GT (12:45)
== END 2017-10-06 17:55 | DRG 393 ==
LOC: ER 15:51 → TELE1 20:20
PROVIDERS: ADMIT Internal Medicine; ATTEND Internal Medicine
PROC: 0D20XUZ Change Feeding Device in Upper Intestinal Tract, External Approach (ICD-10-PCS; principal; 2017-10-01)
PROC: 5A1955Z Respiratory Ventilation, Greater than 96 Consecutive Hours (ICD-10-PCS; 2017-10-01)
PROC: 5A1D70Z Performance of Urinary Filtration, Intermittent, Less than 6 Hours Per Day (ICD-10-PCS; 2017-10-02)
PROC: 5A1D70Z Performance of Urinary Filtration, Intermittent, Less than 6 Hours Per Day (ICD-10-PCS; 2017-10-04)
PROC: 5A1D70Z Performance of Urinary Filtration, Intermittent, Less than 6 Hours Per Day (ICD-10-PCS; 2017-10-06)
DX: K94.23 Gastrostomy malfunction (principal); N18.6 End stage renal disease; G93.40 Encephalopathy, unspecified; J96.10 Chronic respiratory failure, unspecified whether with hypoxia or hypercapnia; I12.0 Hypertensive chronic kidney disease with stage 5 chronic kidney disease or end stage renal disease; Z99.11 Dependence on respirator [ventilator] status; N39.0 Urinary tract infection, site not specified; G82.20 Paraplegia, unspecified; Z93.0 Tracheostomy status; Y84.8 Other medical procedures as the cause of abnormal reaction of the patient, or of later complication, without mention of misadventure at the time of the procedure; Y92.129 Unspecified place in nursing home as the place of occurrence of the external cause; Z99.2 Dependence on renal dialysis; G40.909 Epilepsy, unspecified, not intractable, without status epilepticus; E11.22 Type 2 diabetes mellitus with diabetic chronic kidney disease; J84.10 Pulmonary fibrosis, unspecified; J44.9 Chronic obstructive pulmonary disease, unspecified; Z88.0 Allergy status to penicillin; Z88.2 Allergy status to sulfonamides; L98.8 Other specified disorders of the skin and subcutaneous tissue; Q05.9 Spina bifida, unspecified; R13.10 Dysphagia, unspecified; S90.32XA Contusion of left foot, initial encounter; S90.31XA Contusion of right foot, initial encounter; M62.50 Muscle wasting and atrophy, not elsewhere classified, unspecified site; E83.52 Hypercalcemia; B96.4 Proteus (mirabilis) (morganii) as the cause of diseases classified elsewhere; D72.829 Elevated white blood cell count, unspecified; K21.9 Gastro-esophageal reflux disease without esophagitis; M41.9 Scoliosis, unspecified; S20.419A Abrasion of unspecified back wall of thorax, initial encounter
CPT/HCPCS: 31720; 36415; 71045-TC; 74018; 80048-TC; 80053-TC; 80076-TC; 80202-TC; 81000-TC; 82962-TC; 83605-TC; 83735-TC; 84100-TC; 84484-TC; 85025-TC; 85730-TC; 86850-TC; 87040-TC; 87081-TC; 87086-TC; 87186-TC; 90935-TC; 94002-TC; 94003-TC; 94762-TC; 99082-TC; A4216; A4362; A4606; A6253; A6402; A6403; C9113; J0692; J1815; J1953; J2405; J3370; J7030; J7040; J7050; J7060; J8597; P9047; Q9963; Z7610

== ENCOUNTER 2017-10-08 12:15 | Inpatient (IN) | payer MEDICARE, OTHER ==
[~2017-10-08] VITALS: Ht 162.6 cm; Wt 54.9 kg
[~2017-10-08 12:15] MED LIST changes: +ACET-868 GT; +ACID1TAB12 GT; -AMIK250V13 IJ; -AMLO5TAB7 GT; +ASCO500T9 GT; +EPOE1VIA4 SQ; +IPRA3AMP IH; -IPRA3AMP23 IH; -LACT1CAP72 PO; +MELA3TAB GT; -METR500T PO; -RXAMI XX; -SEVE0.8P GT; +SUCR1ORA GT; +ZINC220C8 GT; -ZOLP5TAB2 GT
--- NOTE | 2017-10-08 12:15 | NUR ---
MICAH FROM [facility] FOR PERMACATH MALFUNCTION, PER FACILITY, "PERMACATH IS PULLOUT ABOUT 6 INCHES." UPON ARRIVAL TO ER, PERMACATH NOTED TO BE FULLY PULLED OUT UNDER THE BANDAGE. NO DIALYSIS TODAY. PATIENT VENT/TRACH DEPENDENT. NO DISTRESS, NO TRAUMA. VITALS STABLE. SAFETY AND COMFORT MEASURES IN PLACE. AWAITING MD ORDERS.
--- NOTE | 2017-10-08 12:30 | NUR ---
NEW IV STARTED ON LFA, 20G. BLOOD DRAWN AND SENT TO LAB.
[2017-10-08 12:33] LABS: BASOPHILS # (AUTO) 0.1 /CMM (0.0-0.2); BASOPHILS % (AUTO) 0.4 % (0.0-2.0); EOSINOPHILS % (AUTO) 5.6 % (0.0-6.0); HEMATOCRIT 45 % (39-51); HEMOGLOBIN 14.2 g/dL (13.5-17.5); LYMPHOCYTES # (AUTO) 0.8 /CMM (0.8-4.8); MEAN CORPUSCULAR HEMOGLOBIN 32 PG (26.0-33.0); MEAN CORPUSCULAR HGB CONC 32 g/dl (31.0-36.0); MEAN CORPUSCULAR VOLUME 99 fL (80-96); MONOCYTES # (AUTO) 1.3 /CMM (0.1-1.30); MONOCYTES % (AUTO) 6.9 % (2.0-12.0); NEUTROPHILS # (AUTO) 15.6 /CMM (1.8-8.9); NEUTROPHILS % (AUTO) 83.1 % (43.0-81.0); PLATELET COUNT (AUTO) 316 /CMM (150-450); RDW COEFFICIENT OF VARIATION 18.5 (11.5-15.0); WHITE BLOOD COUNT (AUTO) 18.9 K/uL (4.3-11.0)
[2017-10-08] MEDS ORDERED: CEFE1VIA3 IV (12:45)
[2017-10-08] MEDS ORDERED: OMEP20CA10 PO (12:45)
[2017-10-08] MEDS ORDERED: INSU100V11 SQ (12:45)
[2017-10-08] MEDS ORDERED: VANC1VIA2 IV (12:45)
[2017-10-08 12:48] LABS: CALCIUM, SERUM 12.9 mg/dL (8.5-10.1); POTASSIUM 4.4 mmol/L (3.5-5.1)
[2017-10-08 12:52] LABS: INR 1.26 (0.85-1.15); TROPONIN I 0.025 ng/mL (0.00-0.056)
--- NOTE | 2017-10-08 12:52 | NUR ---
CALLED [facility], PRE OWNED SALES MANAGER WAS PAGED.
--- NOTE | 2017-10-08 13:09 | NUR ---
PT IS GOING TO 117-2
--- NOTE | 2017-10-08 13:18 | NUR ---
REPORT GIVEN TO MAYKEL MICHELLE FOR CLAUDIA UPON ADMISSION.
[2017-10-08] MEDS ORDERED: LEVOFLOXACIN 750 MG /D5W 150ML 150 ML IV ONE ×2 (13:30→13:50)
[2017-10-08] MEDS ORDERED: VANCOMYCIN 1 GM in IV D5W 250 ML IV ONE (13:30)
[2017-10-08 13:47] VITALS: BP 96/68
--- NOTE | 2017-10-08 13:47 | NUR ---
SUPRAPUBIC CATHETER CHANGED UNDER DR. ALLEN SUPERVISION. TOLERATED WELL, WILL CONTINUE TO MONITOR.
--- NOTE | 2017-10-08 13:49 | NUR ---
RT NOTE PT PLACED ON VENT PER MD ORDER. SETTINGS ENDORSED BY TRANSPORT RT AC 12 500 40% +5. ALARMS SET PER PROTOCOL AND AUDIBLE. VENT PLUGGED IN TO RED OUTLET. AMBU BAG AT BED SIDE. NO DISTRESS NOTED. WILL CONTINUE TO MONITOR. Addendum: 10/08/17 at 1351 by DARRIAN ALLEN RT Amended: Links added.
[2017-10-08] MEDS ORDERED: IV NS 0.9% 500 ML BAG IV ONE (14:00)
--- NOTE | 2017-10-08 14:33 | NUR ---
PATIENT TRANSPORTED TO [facility] VIA ACLS PROTOCOL. RNMAYKEL TO PROVIDE CLAUDIA.
--- NOTE | 2017-10-08 14:40 | NUR ---
RN ADMITTING NOTES RECEIVED PATIENT FROM ER.AXOX2.ADMITTED WITH DIAGNOSIS OF HD CATH MALFUNCTION.ON TELE MONITOR WITH SINUS 76.HAS GTUBE ,COLOSTOMY BAG DRAINING GOOD.CHANGED BAG.ON SUPRAPUBIC CATHETER.NO URINE NOTED,HD PATIENT.TRACH AND VENT DEPENDANT.TOLERATING SETTINGS WELL.WILL CONTINUE TO MONITOR. Addendum: 10/08/17 at 2051 by CARLITA LYONS RN ADMITTING TIME 1630
[2017-10-08 16:00] VITALS: BP 112/75
--- NOTE | 2017-10-08 19:25 | NUR ---
RN NOTES ENDORSED PATIENT TO PM NURSE
--- NOTE | 2017-10-08 19:30 | NUR ---
RN NOTES CALL MADE TO DR BHARDWAJ VERIFIED MED LIST AND FAXED TO PHARMACY FOR MED RECON.
[2017-10-08 20:00] VITALS: BP 90/65
--- NOTE | 2017-10-08 20:00 | NUR ---
RN TEL INITIAL NOTES RECEIVED PATIENT FROM AM RN WITH DIAGNOSIS OF HD CATH MALFUNCTION.ON TELE MONITOR WITH SINUS 82.HAS GTUBE , NEPRO @ 50ML, WELL REBECCA AT THIS TIME, COLOSTOMY BAG DRAINING GOOD.CHANGED BAG.ON SUPRAPUBIC CATHETER. WITH SMALL AMOUNT URINE NOTED, HD PATIENT.TRACH AND VENT DEPENDANT.TOLERATING SETTINGS WELL.WILL CONTINUE TO MONITOR.
[2017-10-08] MEDS ORDERED: DEXTROSE 50%-WATER 50 ML DISP.SYRIN IV PRN (20:30)
[2017-10-08] MEDS ORDERED: CEFEPIME 1 GM VIAL IV SCH (20:30)
[2017-10-08] MEDS ORDERED: FEE PK DOSING 1 MIN EA MC ONE (20:30)
[2017-10-08] MEDS ORDERED: Medication Not On Formulary EA (Ipratropium/Albuterol Sulfate (Duoneb 2.5-0.5 Mg/3 Ml So IH PRN (20:30)
[2017-10-08] MEDS ORDERED: ALBUTEROL FS 2.5 MG/0.5 ML VIAL.NEB NEB PRN (21:00)
[2017-10-08] MEDS ORDERED: VANCOMYCIN 500 MG in IV D5W 100 ML IV PRN (21:00)
[2017-10-08] MEDS ORDERED: IPRATROPIUM NEB FS 0.5 MG/2.5 ML AMPUL.NEB NEB PRN (21:00)
[2017-10-08] MEDS: NEPRO 1,000 ML BOTTLE GT PRN (21:30)
[2017-10-08] MEDS: CHLORHEXIDINE GLUCONATE 15 ML UDC MM SCH (21:31)
[2017-10-08] MEDS: MIDODRINE HCL (5MG) 5 MG TABLET GT SCH (21:31)
[2017-10-08] MEDS: METOCLOPRAMIDE HCL 10 MG TABLET GT SCH (21:31)
[2017-10-08] MEDS ORDERED: BLOOD SUGAR DIAGNOSTIC 1 EACH STRIP IN SCH (22:00)
[2017-10-08] MEDS ORDERED: Medication Not On Formulary EA (Melatonin 3 MG) GT SCH (22:00)
[2017-10-09] VITALS (7 sets, daily range): BP systolic 90–117; BP diastolic 49–97
[2017-10-09] MEDS: SUCRALFATE 1 G/10 ML UDC GT SCH ×4 (00:21→18:03)
[2017-10-09] MEDS: ONDANSETRON 4 MG TAB.RAPDIS GT PRN (00:21)
[2017-10-09] MEDS: BLOOD SUGAR DIAGNOSTIC 1 EACH STRIP IN SCH ×4 (00:21→17:15)
--- NOTE | 2017-10-09 01:49 | NUR ---
PT KIMBERLY'D ON MECHANICAL VENT. SX DONE T/O SHIFT. PT KIMBERLY PATENT AND SECURE. AMBU BAG AT BEDSIDE. VENT PLUGGED INTO RED OUTLET. ALARMS ARE ON AND AUDIBLE. WILL CONTINUE TO MONITOR. Addendum: 10/09/17 at 0150 by BORIS LUU RT Amended: Links added.
--- NOTE | 2017-10-09 06:46 | NUR ---
RN TEL CLOSING NOTES ENDORSED PATIENT TO AM RN .ON TELE MONITOR WITH SINUS 70'S .HAS GTUBE , NEPRO @ 50ML, WELL REBECCA AT THIS TIME, COLOSTOMY BAG DRAINING GOOD.CHANGED BAG.ON SUPRAPUBIC CATHETER. NO URINE O/P NOTED, HD PATIENT.TRACH AND VENT DEPENDANT.TOLERATING SETTINGS WELL.WILL CONTINUE TO MONITOR. NO HD ACCESS AT THIS TIME WILL ENDORSE TO AM SHIFT RN TO F/U ON PLAN OF CARE.
--- NOTE | 2017-10-09 07:10 | NUR ---
TELE/RN INITIAL NOTES RECEIVED PT IN BED IN SEMI DUPREE POSITION. A/O X3. ON MECH VENT TOLERATING CURRENT SETTINGS. NO SOB NOTED. NO C/O PAIN. SR ON TELE MONITOR. WITH ONGOING GTF OF NEPRO AT 50 ML/HR, TOLERATING WELL, NO RESIDUE NOTED, GT INTACT. COLOSTOMY APPEARS PINKISH RED WITH INTACT COLOSTOMY BAG DRAINING GREENISH BROWN LIQUID. NO SIGNS OF INFECTION NOTED ON COLOSTOMY SITE. WITH INTACT SUPRAPUBIC CATH CONNECTED TO URINE BAG. RFA AND LFA SL INTACT, WITH NO SIGNS OF INFILTRATION. SAFETY MEASURES AND ASPIRATION PRECAUTION OBSERVED. CALL LIGHT WITHIN REACH. WILL CONT TO MONITOR
[2017-10-09] MEDS ORDERED: CEFEPIME 1 GM in IV D5W 50 ML IV SCH (09:00)
--- NOTE | 2017-10-09 09:00 | NUR ---
RN NOTES RECEIVED CALL FROM DR GOMES, INFORMED CURRENT PT'S WBC LEVEL AND MADE ORDER: OBTAIN CONSENT FOR HEMODIALYSIS CATH PLACEMENT, 19/20 CM HD CATH, STERILE GLOVES SIZE 7, CHLORHEX PREP, PACK OF STERILE TOWELS, SALINE FLUSHES, AND HEPARIN 1000UNITS/ML TOTAL OF 5MLS. PT IS FOR HD CATH PLACEMENT THIS AFTERNOON. ORDERS NOTED AND CARRIED OUT NOTIFIED PT RE: PLACEMENT OF HD CATH, PT AGREED, BUT PT UNABLE TO SIGN CONSENT, PER PT OK TO ASK SISTER (BERRY) FOR TELEPHONE CONSENT [phone] - TELEPHONE CONSENT OBTAINED FROM PT'S SISTERBERRY PT MADE AWARE AND AGREED
[2017-10-09] MEDS: VIT B CMPLX 3/FA/VIT C/BIOTIN 1 TAB TABLET GT SCH (09:06)
[2017-10-09] MEDS: METOCLOPRAMIDE HCL 10 MG TABLET GT SCH ×2 (09:06→21:32)
[2017-10-09] MEDS: PANTOPRAZOLE 40 MG/PACK PACK GT SCH ×2 (09:06→16:36)
[2017-10-09] MEDS: LEVETIRACETAM SOL (5 ML) 100 MG/ML UDC GT SCH ×2 (09:06→16:35)
[2017-10-09] MEDS: ZINC SULFATE 220 MG CAPSULE GT SCH (09:06)
[2017-10-09] MEDS: GABAPENTIN 300 MG CAPSULE GT SCH ×3 (09:06→16:36)
[2017-10-09] MEDS: ACIDOPHILUS/BULGARICUS 1 EACH TAB.CHEW GT SCH ×2 (09:06→16:35)
[2017-10-09] MEDS: ESCITALOPRAM OXALATE (10 MG) 10 MG TABLET GT SCH (09:06)
[2017-10-09] MEDS: CHLORHEXIDINE GLUCONATE 15 ML UDC MM SCH ×2 (09:07→21:33)
[2017-10-09] MEDS: ASCORBIC ACID 500 MG TABLET GT SCH (09:08)
[2017-10-09] MEDS: MIDODRINE HCL (5MG) 5 MG TABLET GT SCH ×3 (09:36→16:36)
[2017-10-09] MEDS: PROSOURCE / PROSTAT (PYXIS) 30 ML UDC GT SCH (09:39)
[2017-10-09] MEDS ORDERED: HEPARIN SODIUM, PORCINE 1000 UNIT/1 ML VIAL IV ONE (10:00)
--- NOTE | 2017-10-09 12:45 | NUR ---
RN NOTES SEEN AND EXAMINED BY DR POSEY
--- NOTE | 2017-10-09 14:00 | NUR ---
RN NOTES HD NURSE ON FLOOR WITH DR POSEY. PER DR POSEY, HD CATH PLACEMENT AND HD IS RESCHEDULE TOMORROW
--- NOTE | 2017-10-09 15:00 | NUR ---
RN NOTES RECEIVED CALL FROM DR GOMES, PER HD CATH PLACEMENT IS RESCHED TOMORROW
--- NOTE | 2017-10-09 17:36 | NUR ---
RECEIVED PT TRACH ON MECHANICAL VENTILATOR. SX'D MODERATE AMT OF THICK YELLOW SECRETIONS. VENT ALARMS SET AND AUDIBLE. AMBU BAG AT BEDSIDE. VENT PLUGGED INTO RED OUTLET. WILL CONTINUE TO MONITOR.
[2017-10-09] MEDS: LEVOFLOXACIN (250MG) 250 MG TABLET PO SCH (18:54)
--- NOTE | 2017-10-09 19:15 | NUR ---
RN NOTES PT IN STABLE CONDITION. NO ACUTE DISTRESS NOTED THROUGHOUT SHIFT. SAFETY MEASURES AND ASPIRATION OBSERVED AT ALL TIMES. ALL NEEDS ATTENDED. ENDORSED TO PM SHIFT FOR CLAUDIA
--- NOTE | 2017-10-09 20:07 | NUR ---
RECEIVED PT TRACH RAH 6 XLT ON [facility] VENT WITH NOTED SETTINGS. VENT ALARM SET AND AUDIBLE. VENT PLUGGED INTO RED OUTLET, AMU BAG AT BEDSIDE. SX'D MODERATE AMT OF THICK YELLOW SECRETIONS. NO RESPIRATORY DISTRESS NOTED, WILL CONTINUE TO MONITOR. Addendum: 10/10/17 at 0559 by KAY NEFF RT TRACH SIZE OF RAH 6 DCT
[2017-10-10] VITALS: BP_SYST 100; BP_SYST 94; BP_DIAS 61; BP_DIAS 62
[2017-10-10] MEDS: SUCRALFATE 1 G/10 ML UDC GT SCH ×5 (00:21→23:06)
[2017-10-10] MEDS: INSULIN ASPART/LISPRO 100 UNIT/ML CARTRIDGE SQ PRN ×2 (00:28→06:13)
[2017-10-10] MEDS: ONDANSETRON 4 MG TAB.RAPDIS GT PRN (03:21)
[2017-10-10 04:00] VITALS: BP 103/59
[2017-10-10] MEDS: BLOOD SUGAR DIAGNOSTIC 1 EACH STRIP IN SCH ×5 (06:00→23:07)
--- NOTE | 2017-10-10 06:30 | NUR ---
SOUND PRINTER - PT.IS RESTING W/EYES CLOSED. REC'D COMP.BEDBATH AT 4AM. NEW COLOSTOMY APPARATUS WAS APPLIED. PT. HAS BEEN NPO SINCE 2AM. PT.WAS EXPERIENCING SOME NAUSEA AT 3AM. PT. REC'D ZOFRAN 4MG-IVP. PT. IS EXPECTED TO HAVE HD CATH REPLACEMENT TODAY BY DR. GOMES. WISAMEBRIJONH. SBP'S ARE IN THE LOW 90'S-LOW 100'S. 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 PT. HAS A SUPRAPUBIC CATH. & PEG. ALL INTACT. PT'S BUTTOCKS IS A RASH,EXCORIATION, LOOKING LIKE A YEAST INF. WOUND CARE IS ON BOARD. WILL ENDORSE TO DAYSHIFT. VENT/TRACH CARE ADM. AC-12,TV-500,40% & PEEP OF 5. LUNG PHILLIPS ARE DIM/RHONCHI. VERBAL REPORT ENOD Addendum: 10/10/17 at 0710 by OCTAVIA AQUINO RN ENDORSED TO DAYSHIFT RN. CONT.POC.
[2017-10-10 06:48] LABS: BASOPHILS % (AUTO) 0.2 % (0.0-2.0); EOSINOPHILS % (AUTO) 4.8 % (0.0-6.0); HEMATOCRIT 41 % (39-51); HEMOGLOBIN 12.6 g/dL (13.5-17.5); LYMPHOCYTES # (AUTO) 0.8 /CMM (0.8-4.8); LYMPHOCYTES % (AUTO) 4.5 % (20.0-44.0); MEAN CORPUSCULAR HEMOGLOBIN 31 PG (26.0-33.0); MEAN CORPUSCULAR HGB CONC 31 g/dl (31.0-36.0); MEAN CORPUSCULAR VOLUME 101 fL (80-96); MONOCYTES # (AUTO) 1.6 /CMM (0.1-1.30); MONOCYTES % (AUTO) 9.1 % (2.0-12.0); NEUTROPHILS # (AUTO) 14.2 /CMM (1.8-8.9); NEUTROPHILS % (AUTO) 81.4 % (43.0-81.0); PLATELET COUNT (AUTO) 330 /CMM (150-450); RED BLOOD CELL COUNT(AUTO) 4.06 MIL/uL (4.5-6.0); WHITE BLOOD COUNT (AUTO) 17.5 K/uL (4.3-11.0)
[2017-10-10 07:04] LABS: MAGNESIUM 2.4 mg/dL (1.8-2.4); PHOSPHORUS 3.2 mg/dL (2.5-4.9); POTASSIUM 4.1 mmol/L (3.5-5.1)
[2017-10-10 07:09] LABS: INR 0.99 (0.87-1.13)
--- NOTE | 2017-10-10 07:30 | NUR ---
CHANNELER INSOLE INITIAL NOTES RECEIVED PATIENT IN BED, AOX1, ON VENTILATOR SETTINGS ABLE TO MAKE NEEDS KNOWN, NO SHORTNESS OF BREATH NO SIGNS OF DISTRESS, NPO FOR HD CATHETER PLACEMENT, ON TELE MONITORING SR, IV R FA 20G, AND LFA 20G, CLEAN AND PATENT, SUPRAPUBIC CATHETER IN PLACE. COLOSTOMY BAG IN PLACE, BED IN LOW AND LOCKED POSITION CALL LIGHT WITHIN REACH, WILL CONTINUE TO MONITOR.
--- NOTE | 2017-10-10 07:50 | NUR ---
RT PATIENT REC'D TRACHED ON [facility] VENT REBECCA WELL. VENT ALARMS CHECKED + AUDIBLE. 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 PATIENT SUCTIONED WITH SMALL TO MOD AMT PALE SEMITHICK SECRETIONS. PATIENT STABLE, RESPONSIVE TO VERBAL COMMANDS, NO SOB NOTED. AMBU BAG AT HOB Addendum: 10/10/17 at 1050 by OTILIA DE LA TORRE RT Amended: Links added.
[2017-10-10 07:54] LABS: CALCIUM, SERUM 13.2 mg/dL (8.5-10.1)
[2017-10-10 07:55] LABS: CREATININE 7.8 mg/dL (0.6-1.3)
[2017-10-10 08:00] VITALS: BP 95/65
--- NOTE | 2017-10-10 08:30 | NUR ---
TABLE GAMES SHIFT MANAGER NOTES PER DR GOMES HD CATHETER PLACEMENT TO BE DONE IN OR NOT AT BEDSIDE. FAMILY CONSENT RECEIVED FOR OR PROCEDURE AND ANESTHESIA, EXPLAINED TO BERRY BY DR. GOMES AND TWO NURSES WITNESSED CONSENT VIA TELEPHONE, ALL QUESTIONS ANSWERED.
[2017-10-10] MEDS ORDERED: LIDOCAINE 2% 50 ML MDV IJ ONE (08:44)
[2017-10-10] MEDS ORDERED: HEPARIN SODIUM, PORCINE 1,000 UNIT/ML VIAL ONE (08:54)
[2017-10-10] MEDS: ESCITALOPRAM OXALATE (10 MG) 10 MG TABLET GT SCH (09:00)
[2017-10-10] MEDS: MIDODRINE HCL (5MG) 5 MG TABLET GT SCH ×3 (09:00→17:39)
[2017-10-10] MEDS: METOCLOPRAMIDE HCL 10 MG TABLET GT SCH ×2 (09:00→21:03)
[2017-10-10] MEDS: GABAPENTIN 300 MG CAPSULE GT SCH ×3 (09:00→17:38)
[2017-10-10] MEDS: VIT B CMPLX 3/FA/VIT C/BIOTIN 1 TAB TABLET GT SCH (09:00)
[2017-10-10] MEDS: ACIDOPHILUS/BULGARICUS 1 EACH TAB.CHEW GT SCH ×2 (09:00→17:38)
[2017-10-10] MEDS: CHLORHEXIDINE GLUCONATE 15 ML UDC MM SCH ×2 (09:00→21:03)
[2017-10-10] MEDS: PROSOURCE / PROSTAT (PYXIS) 30 ML UDC GT SCH (09:00)
[2017-10-10] MEDS: ASCORBIC ACID 500 MG TABLET GT SCH (09:00)
[2017-10-10] MEDS: PANTOPRAZOLE 40 MG/PACK PACK GT SCH ×2 (09:00→17:38)
[2017-10-10] MEDS: ZINC SULFATE 220 MG CAPSULE GT SCH (09:00)
[2017-10-10] MEDS: LEVETIRACETAM SOL (5 ML) 100 MG/ML UDC GT SCH ×2 (09:00→17:39)
--- NOTE | 2017-10-10 10:05 | NUR ---
WIRED MUSIC OPERATOR NOTES PATIENT TAKEN TO OR FOR HD CATHETER PLACEMENT PROCEDURE, STABLE. NO DISTRESS NOTED.
[2017-10-10] MEDS ORDERED: CLINDAMYCIN 900 MG/6 ML VIAL ONE (10:08)
[2017-10-10 12:00] VITALS: BP_SYST 102; BP_SYST 106; BP_DIAS 66
[2017-10-10] MEDS: NEPRO 1,000 ML BOTTLE GT PRN (12:59)
[2017-10-10 16:00] VITALS: BP 96/56
[2017-10-10] MEDS: ANCEF 1 GM/50 ML D5W IV SCH ×2 (17:40)
[2017-10-10] MEDS: LEVOFLOXACIN (250MG) 250 MG TABLET PO SCH (17:42)
--- NOTE | 2017-10-10 18:49 | NUR ---
LAP HAND TOOL END NOTES PATIENT RESTING IN BED, ALL NEEDS MET, NEW [facility] HD CATHETER IN PLACE, HD COMPLETED 1 LITER OUTPUT, WILL ENDORSE TO MAINTENANCE ENGINEER FOR CONTINUITY OF CARE.
--- NOTE | 2017-10-10 19:30 | NUR ---
AUTOMOBILE CLUB MEMBERSHIP SALES AGENT INITIAL NOTES, RECEIVED PT IN BED A/O X3, ON MECH VENT TOLERATING SETTINGS WELL, NO SOB OR ACUTE DISTRESS NOTED AT THIS TIME, NO C/O PAIN OR DISCOMFORT AT THIS TIME, SR ON TELE MONITOR ON 70'S, GTF INFUSING WELL AND TOLERATING WELL, NO RESIDUAL NOTED AT THIS TIME, GT SITE IN INTACT, COLOSTOMY BAG DRAINING GREENISH COLOR STOOL, SUPRAPUBIC CATH INTACT AND PATENT, DRAINING YELLOW URINE, RFA AND LFA SL INTACT, NO SIGNS OF INFILTRATION AT THIS TIME, HOB ELEVATED AT ALL TIMES FOR ASPIRATION PRECAUTIONS, BED LOCKED AN IN LOWEST POSITION, CALL LIGHT W/I REACH, WILL CONTINUE TO MONITOR CLOSELY.
[2017-10-10 20:00] VITALS: BP 106/55
--- NOTE | 2017-10-10 20:10 | NUR ---
RN NOTES, NOTED PATIENT TRYING TO PULL IV CATHETER IN PLACE, THIS WAS INSERTED AT THE BEGINNING OF SHIFT, PATIENT HARD STICK AND WITH HISTORY OF PULLING LINES, PER SON AT BEDSIDE TO IMPLEMENT RESTRAINS. WILL CALL HOSPICE. Addendum: 10/10/17 at 4 by ARNALDO QUINTANILLA RN WRONG ENTRY
--- NOTE | 2017-10-10 20:15 | NUR ---
RN NOTES, CALL HOSPICE AND INFORM ABOUT PATIENT PULLING LINES AND REQUEST FROM SON, THEY WILL PAGED AND WILL CALL BACK, Addendum: 10/10/17 at 204 by ARNALDO QUINTANILLA RN WRONG ENTRY
--- NOTE | 2017-10-10 20:20 | NUR ---
RN NOTES, RECEIVED A CALL BACK FROM DR SUSANNA GONZALEZ WITH NEW ORDER TO IMPLEMENT ACUTE MEDICAL BILATERAL WRIST RESTRAINS. Addendum: 10/10/17 at 2044 by ARNALDO QUINTANILLA RN WRONG ENTRY
--- NOTE | 2017-10-10 20:46 | NUR ---
RN NOTES, RECEIVED A CALL BACK FROM DR SUSANNA GONZALEZ WITH NEW ORDER TO IMPLEMENT ACUTE MEDICAL BILATERAL WRIST RESTRAINS. Addendum: 10/11/17 at 2006 by ARNALDO QUINTANILLA RN WRONG ENTRY
[2017-10-10] MEDS: LORAZEPAM 1 MG TABLET GT PRN (21:03)
[2017-10-10] MEDS: NYSTATIN TOP POWDER 15 GM BOTTLE TP SCH (21:07)
--- NOTE | 2017-10-10 22:20 | NUR ---
CONCRETE TILE MACHINE OPERATOR NOTES, ENDORSED PATENT TO VIVIANA COWART IN STABLE CONDITION AT THIS TIME FOR CONTINUATION OF CARE.
--- NOTE | 2017-10-10 22:41 | NUR ---
RN INITIAL NOTE PT IS IN BED AWAKE AND ALERT. ON VENT TOLERATING SETTING WELL, NO SIGNS OF SOB OR DISTRESS. IV ACCESS IS INTACT AND PATENT. G-TUBE IS INTACT WITH FEEDING. BED IS IN LOW AND LOCKED POSITION, BED ALARM IS ON, WILL CONTINUE TO MONITOR PT
[2017-10-11] VITALS (10 sets, daily range): BP systolic 95–134; BP diastolic 26–99
[2017-10-11] MEDS: ANCEF 1 GM/50 ML D5W IV SCH ×2 (00:44)
--- NOTE | 2017-10-11 02:24 | NUR ---
PT KIMBERLY'D ON MECHANICAL VENT. SX DONE T/O SHIFT. PT KIMBERLY PATENT AND SECURE. AMBU BAG AT BEDSIDE. VENT PLUGGED INTO RED OUTLET. ALARMS ARE ON AND AUDIBLE. WILL CONTINUE TO MONITOR. Addendum: 10/11/17 at 0226 by BORIS LUU RT Amended: Links added.
[2017-10-11] MEDS: BLOOD SUGAR DIAGNOSTIC 1 EACH STRIP IN SCH ×4 (05:23→23:41)
[2017-10-11] MEDS: SUCRALFATE 1 G/10 ML UDC GT SCH ×4 (05:23→23:22)
--- NOTE | 2017-10-11 06:45 | NUR ---
PLASTIC DIE MAKER APPRENTICE CLOSING NOTE PT IS IN BED SLEEPING, EASILY AROUSED. PT IS ABLE TO GIVE SIMPLE RESPONSES AND TALK A LITTLE. ON VENT TOLERATING SETTINGS WELL. SUPRAPUBIC CATH INTACT. COLOSTOMY BAG WAS CHANGED. WOUND CARE RENDERED. ALL NEEDS WERE ANTICIPATED AND MET. WILL ENDORSE TO DAYSHIFT
--- NOTE | 2017-10-11 07:40 | NUR ---
DIRECTOR OF ENTERTAINMENT OPENING NOTE PATIENT IS RESTING COMFORTABLY IN BED AT THIS TIME WITH BED LOCKED IN LOWEST POSITION AND SIDE RAILS UP FOR SAFETY. TELE MONITOR SR- 80s. ALERT AND ORIENTED x1-2, ABLE TO VERBALIZE NEEDS. CALL LIGHT WITHIN REACH AND SAFETY MEASURES IMPLEMENTED. COLOSTOMY BAG CLEAN DRY AND INTACT, G-TUBE CLEAN DRY AND INTACT AND WITH TUBE FEEDING- NEPHRO 50 ML/HR TOLERATING WELL NO RESIDUAL NOTED. SUPRAPUBIC CATHETER IN PLACE-ANURIC. LEFT IJ CATHETER INTACT AND PATENT FOR HD, IV INTACT AND PATENT NO REDNESS OR SWELLING NOTED. BLOOD SUGAR TO BE MONITORED THROUGHOUT SHIFT AND INSULIN TO BE GIVEN NEEDED. WOUND TREATMENT IN PLACE TO BE DONE QSHIFT. WILL CONTINUE TO MONITOR THROUGHOUT SHIFT
[2017-10-11 07:50] LABS: BASOPHILS # (AUTO) 0.1 /CMM (0.0-0.2); EOSINOPHILS % (AUTO) 6.5 % (0.0-6.0); HEMATOCRIT 34 % (39-51); HEMOGLOBIN 11.2 g/dL (13.5-17.5); LYMPHOCYTES # (AUTO) 0.6 /CMM (0.8-4.8); LYMPHOCYTES % (AUTO) 5.6 % (20.0-44.0); MEAN CORPUSCULAR HEMOGLOBIN 32 PG (26.0-33.0); MEAN CORPUSCULAR HGB CONC 33 g/dl (31.0-36.0); MEAN CORPUSCULAR VOLUME 97 fL (80-96); MONOCYTES # (AUTO) 1.4 /CMM (0.1-1.30); MONOCYTES % (AUTO) 12.5 % (2.0-12.0); NEUTROPHILS % (AUTO) 74.4 % (43.0-81.0); PLATELET COUNT (AUTO) 282 /CMM (150-450); RDW COEFFICIENT OF VARIATION 17.6 (11.5-15.0); RED BLOOD CELL COUNT(AUTO) 3.55 MIL/uL (4.5-6.0); WHITE BLOOD COUNT (AUTO) 10.8 K/uL (4.3-11.0)
--- NOTE | 2017-10-11 08:00 | NUR ---
RT PATIENT REC'D TRACHED ON [facility] VENT WITH ORDERED SETTINGS TOLERATED WELL. VENT ALARMS CHECKED + AUDIBLE. VENT PLUGGED INTO RED OUTLET. CUFF PRESSURE CHECKED YARD PERSON. TRACH SECURE AND IN PROPER POSITION VIA FOAM TRACH TIE. PATIENT APPEARS COMFORTABLE AND IN NO DISTRESS AT THIS TIME. PATIENT SUCTIONED WITH SMALL TO MODERATE AMOUNT OF PALE SEMI-THICK SECRETIONS. B/S DIM COARSE. AMBU BAG AT [facility]. CONTINUE CURRENT PLAN OF RESPIRATORY CARE. Addendum: 10/11/17 at 0846 by OTILIA DE LA TORRE RT Amended: Links added.
[2017-10-11 08:08] LABS: CALCIUM, SERUM 11.6 mg/dL (8.5-10.1); CREATININE 5.5 mg/dL (0.6-1.3); PHOSPHORUS 2.5 mg/dL (2.5-4.9); POTASSIUM 3.4 mmol/L (3.5-5.1)
[2017-10-11] MEDS: PANTOPRAZOLE 40 MG/PACK PACK GT SCH ×2 (08:56→17:00)
[2017-10-11] MEDS: MIDODRINE HCL (5MG) 5 MG TABLET GT SCH ×3 (08:56→17:03)
[2017-10-11] MEDS: CHLORHEXIDINE GLUCONATE 15 ML UDC MM SCH ×2 (08:56→21:05)
[2017-10-11] MEDS: METOCLOPRAMIDE HCL 10 MG TABLET GT SCH ×2 (08:56→21:04)
[2017-10-11] MEDS: ESCITALOPRAM OXALATE (10 MG) 10 MG TABLET GT SCH (08:57)
[2017-10-11] MEDS: ZINC SULFATE 220 MG CAPSULE GT SCH (08:57)
[2017-10-11] MEDS: ACIDOPHILUS/BULGARICUS 1 EACH TAB.CHEW GT SCH ×2 (08:57→17:00)
[2017-10-11] MEDS: LEVETIRACETAM SOL (5 ML) 100 MG/ML UDC GT SCH ×2 (08:57→16:55)
[2017-10-11] MEDS: PROSOURCE / PROSTAT (PYXIS) 30 ML UDC GT SCH (08:57)
[2017-10-11] MEDS: ASCORBIC ACID 500 MG TABLET GT SCH (08:57)
[2017-10-11] MEDS: GABAPENTIN 300 MG CAPSULE GT SCH ×3 (08:57→17:00)
[2017-10-11] MEDS: VIT B CMPLX 3/FA/VIT C/BIOTIN 1 TAB TABLET GT SCH (08:57)
[2017-10-11] MEDS: NYSTATIN TOP POWDER 15 GM BOTTLE TP SCH ×2 (08:58→17:03)
[2017-10-11] MEDS: NEPRO 1,000 ML BOTTLE GT PRN (10:53)
--- NOTE | 2017-10-11 11:21 | NUR ---
BUTTON TACKER NOTE BLOOD SUGAR-117 NO INSULIN NEEDED AT THIS TIME. TUBE FEEDING RUNNING AT 50 ML/HR
[2017-10-11] MEDS: EPOETIN ALFA (10,000 UNIT) 10,000 UNIT/ML VIAL IV SCH (13:00)
--- NOTE | 2017-10-11 13:22 | NUR ---
TRAY LINE SUPERVISOR NOTE EPOGEN NOT GIVEN HGB 11.2
--- NOTE | 2017-10-11 16:50 | NUR ---
PLANE TABLEMAN NOTE G-TUBE FEEDING HELD DUE TO PATIENT VOMITING AT THIS TIME. PATIENT CLEANED. ZOFRAN TO BE GIVEN FOR EMESIS/NAUSEA. WILL CONTINUE TO MONITOR
[2017-10-11] MEDS: ONDANSETRON 4 MG TAB.RAPDIS GT PRN (17:00)
[2017-10-11] MEDS: LEVOFLOXACIN (250MG) 250 MG TABLET PO SCH (17:07)
--- NOTE | 2017-10-11 18:32 | NUR ---
INFORMATION SUPPORT PROJECT MANAGER CLOSING NOTE PATIENT AWAKE IN BED, RESTING COMFORTABLY AT THIS TIME. NO FACIAL GRIMACING NOTED FOR PAIN. NO SOB OR DISTRESS NOTED. ON TELE MONITOR- SR 60s. ON [facility] V[facility], TRACH CLEAN DRY AND INTACT. SUCTIONED NEEDED. CALL LIGHT WITHIN REACH AT ALL TIMES. SAFETY MEASURES IMPLEMENTED. ABLE TO COMMUNICATE NEEDS. ALL DUE MEDICATIONS GIVEN ORDERED. ALL NURSING CARE NEEDS ATTENDED TO NEEDED. WOUND CARE DONE THROUGHOUT SHIFT. G-TUBE SITE CLEAN DRY AND INTACT, TUBE FEEDING HELD DUE TO ONE EPISODE OF EMESIS, ZOFRAN GIVEN, EFFECTIVE. IV INTACT AND PATENT NO REDNESS OR SWELLING NOTED. COLOSTOMY CLEAN DRY AND INTACT-100CC OUTPUT. VILLA CATHETER IN PLACE-ANURIC. HAD HEMODIALYSIS DONE TODAY NO OUTPUT REMOVAL JUST CLEANING NOTED. LEFT IJ CATHETER KEPT CLEAN DRY AND INTACT. WILL ENDORSE TO DESIGN ENGINEERING TECHNICIAN NURSE FOR CLAUDIA
--- NOTE | 2017-10-11 20:06 | NUR ---
CATALYST CONCENTRATION OPERATOR INITIAL NOTES, RECEIVED PT IN BED A/O ABLE TO VERBALIZED NEEDS AND CONCERNS, , ON MECH VENT TOLERATING SETTINGS WELL, NO SOB OR ACUTE DISTRESS NOTED AT THIS TIME, NO C/O PAIN OR DISCOMFORT AT THIS TIME, SR ON TELE MONITOR ON 60'S AT THIS TIME, GTF INFUSING WELL AND TOLERATING WELL, NO RESIDUAL NOTED AT THIS TIME, GT SITE IN INTACT, COLOSTOMY BAG DRAINING GREENISH COLOR STOOL, SUPRAPUBIC CATH INTACT AND PATENT, DRAINING YELLOW URINE, RFA AND LFA SL INTACT, NO SIGNS OF INFILTRATION AT THIS TIME, HOB ELEVATED AT ALL TIMES FOR ASPIRATION PRECAUTIONS, BED LOCKED AN IN LOWEST POSITION, CALL LIGHT W/I REACH, WILL CONTINUE TO MONITOR CLOSELY.
[2017-10-11] MEDS: INSULIN ASPART/LISPRO 100 UNIT/ML CARTRIDGE SQ PRN (23:41)
[2017-10-12] VITALS: BP 114/71
[2017-10-12 04:00] VITALS: BP 115/69
[2017-10-12] MEDS: SUCRALFATE 1 G/10 ML UDC GT SCH ×4 (05:24→23:09)
[2017-10-12] MEDS: BLOOD SUGAR DIAGNOSTIC 1 EACH STRIP IN SCH ×4 (05:39→23:09)
[2017-10-12] MEDS: INSULIN ASPART/LISPRO 100 UNIT/ML CARTRIDGE SQ PRN (05:39)
[2017-10-12] MEDS: ONDANSETRON 4 MG TAB.RAPDIS GT PRN ×2 (05:39→07:59)
[2017-10-12] MEDS: NEPRO 1,000 ML BOTTLE GT PRN (05:45)
--- NOTE | 2017-10-12 06:44 | NUR ---
DETAILER CLOSING NOTES, PATIENT IN BED, AWAKE AT THIS TIME, , ON MECH VENT TOLERATING SETTINGS WELL, NO SOB OR ACUTE DISTRESS NOTED AT THIS TIME, NO C/O PAIN OR DISCOMFORT AT THIS TIME, SR ON TELE MONITOR AT 70S AT THIS TIME, GTF INFUSING WELL AND TOLERATING WELL, NO RESIDUAL NOTED AT THIS TIME, GT SITE IN INTACT, COLOSTOMY INTACT AND BAG EMPTIED AT THIS TIME, SUPRAPUBIC CATH INTACT AND PATENT,WITH NO URINE AT THIS TIME, RFA AND LFA SL INTACT, NO SIGNS OF INFILTRATION AT THIS TIME, HOB ELEVATED AT ALL TIMES FOR ASPIRATION PRECAUTIONS, BED LOCKED AN IN LOWEST POSITION, KEPT DRY AND CLEAN AND WELL REPOSITIONED, CALL LIGHT W/I REACH, WILL ENDORSE TO ONCOMING NURSE FOR CONTINUITY IF CARE.
--- NOTE | 2017-10-12 07:10 | NUR ---
RN NOTES, RECEIVED PT ON BED, VENT/TRACH DEPENDENT, MOUTH WORDS , TOLERATING CURRENT VENT SETTING WELL, NO SOB NOTED, ON TELE HR IN 80'S SR , TF NEPRO RUNNING VIA GT , COLOSTOMY BAG DRAINING WITH MODERATE AMOUNT OF GREENISH COLOR STOOL, SUPRAPUBIC CATH INTACT AND PATENT, DRAINING SMALL MOUNT OF YELLOW URINE, R FA AND L FA IV SITES G 20 CDI, HOB ELEVATED AT ALL TIMES FOR ASPIRATION PRECAUTIONS, CALL LIGHT WITHIN EASY REACH, BED LOCKED AN IN LOWEST POSITION, WILL CONTINUE TO MONITOR CLOSELY.
[2017-10-12] MEDS: LORAZEPAM 1 MG TABLET GT PRN (07:59)
--- NOTE | 2017-10-12 07:59 | NUR ---
RN NOTE PT VOMITTED MODERATE AMOUNT OF WHITISH STOMACH CONTENT , TF PLACE ON HOLD , ZOFRAN GIVEN , CONTINUE TO MONITOR .
[2017-10-12 08:00] VITALS: BP_SYST 119; BP_SYST 96; BP_DIAS 56; BP_DIAS 78
[2017-10-12] MEDS: ASCORBIC ACID 500 MG TABLET GT SCH (08:16)
[2017-10-12] MEDS: ZINC SULFATE 220 MG CAPSULE GT SCH (08:16)
[2017-10-12] MEDS: METOCLOPRAMIDE HCL 10 MG TABLET GT SCH ×2 (08:16→20:32)
[2017-10-12] MEDS: VIT B CMPLX 3/FA/VIT C/BIOTIN 1 TAB TABLET GT SCH (08:16)
[2017-10-12] MEDS: GABAPENTIN 300 MG CAPSULE GT SCH ×3 (08:16→16:51)
[2017-10-12] MEDS: ACIDOPHILUS/BULGARICUS 1 EACH TAB.CHEW GT SCH ×2 (08:16→16:51)
[2017-10-12] MEDS: MIDODRINE HCL (5MG) 5 MG TABLET GT SCH ×3 (08:17→16:51)
[2017-10-12] MEDS: LEVETIRACETAM SOL (5 ML) 100 MG/ML UDC GT SCH ×2 (08:17→16:50)
[2017-10-12] MEDS: ESCITALOPRAM OXALATE (10 MG) 10 MG TABLET GT SCH (08:17)
[2017-10-12] MEDS: PANTOPRAZOLE 40 MG/PACK PACK GT SCH ×2 (08:17→16:52)
[2017-10-12] MEDS: PROSOURCE / PROSTAT (PYXIS) 30 ML UDC GT SCH (08:18)
[2017-10-12] MEDS: CHLORHEXIDINE GLUCONATE 15 ML UDC MM SCH ×2 (08:19→20:32)
[2017-10-12] MEDS: NYSTATIN TOP POWDER 15 GM BOTTLE TP SCH ×2 (08:19→16:52)
--- NOTE | 2017-10-12 09:00 | NUR ---
RN NOTES TF RESTARTED AT 50CC/HR , CONTINUE TO MONITOR . DR SALDANA NOTIFED REGARDING VOMITING EPISODE. CONTINUE TO MONITOR .
--- NOTE | 2017-10-12 09:34 | NUR ---
RT RECEIVED PT TRACH ON VENT WITH NOTED SETTINGS, PT AWAKE, ALERT AND VERBAL. ATHLETIC TEAM PHYSICIAN DONE AND TRACH IS SECURE. VENT PLUGGED IN RED OUTLET AND AMBU BAG NOTED HOB. SX WITH MOD THK YELLOW SECRETIONS. NO SOB OR DISTRESS NOTED AT THIS TIME, WILL CONTINUE TO MONITOR T/O SHIFT.
[2017-10-12 12:00] VITALS: BP 96/56
--- NOTE | 2017-10-12 14:00 | NUR ---
RN NOTES COLOSTOMY BAG CHANGED DUE TO LEAKAGE , CONTINUE TO MONITOR
[2017-10-12 16:00] VITALS: BP 105/58
[2017-10-12] MEDS: LEVOFLOXACIN (250MG) 250 MG TABLET PO SCH (17:22)
--- NOTE | 2017-10-12 18:37 | NUR ---
RN NOTES PT STABLE , TOLERATING TF WELL, PT. KALEY NAUSEA, SR UP x3, CALL LIGHTS WITHIN EASY REACH, BED LOCKED AND IN LOWEST POSITION , WILL ENDOSE TO ELECTRONIC TECHNOLOGIST NURSE FOR CLAUDIA
[2017-10-12 20:00] VITALS: BP 148/73
[2017-10-13] VITALS (7 sets, daily range): BP systolic 90–109; BP diastolic 45–68
[2017-10-13] MEDS: BLOOD SUGAR DIAGNOSTIC 1 EACH STRIP IN SCH ×4 (05:03→23:34)
[2017-10-13] MEDS: SUCRALFATE 1 G/10 ML UDC GT SCH ×4 (05:03→23:34)
[2017-10-13] MEDS: NEPRO 1,000 ML BOTTLE GT PRN (05:04)
--- NOTE | 2017-10-13 07:00 | NUR ---
RN NOTES, RECEIVED PT ON BED, VENT/TRACH DEPENDENT, MOUTH WORDS , ALERT , TOLERATING CURRENT VENT SETTING WELL, NO SOB NOTED, ON TELE HR IN 70'S SR , ON GTF WITH NEPRO RUNNING AT 50CC/HR , NO RESIDUAL NOTED, HOB ELEVATED AT ALL TIMES FOR ASPIRATION PRECAUTIONS COLOSTOMY BAG DRAINING WITH MODERATE AMOUNT OF DARK GREENISH COLOR STOOL, SUPRAPUBIC CATH INTACT AND PATENT, DRAINING SMALL MOUNT OF YELLOW URINE, R FA AND L FA IV SITES G 20 CDI, CALL LIGHT WITHIN EASY REACH, SR UP x3, BED LOCKED AND IN LOWEST POSITION, WILL CONTINUE TO MONITOR CLOSELY.
--- NOTE | 2017-10-13 07:20 | NUR ---
RT PT RECEIVED WITH A [employer] 6 TRACH ON THE VENT WITH NOTED SETTINGS. PT IS AWAKE AND ALERT. VENT ALARMS ARE SET AND AUDIBLE WITH BVM BY BEDSIDE. MENTAL TELEPATHIST CUFF PRESSURE NOTED. VENT IS PLUGGED INTO RED OUTLET. PT REFUSED SX AT THIS TIME. NO RESPIRATORY DISTRESS NOTED AT THIS TIME, WILL CONTINUE TO MONITOR. Addendum: 10/13/17 at 1048 by MARAL CANCHOLA RT Amended: Links added.
[2017-10-13] MEDS: METOCLOPRAMIDE HCL 10 MG TABLET GT SCH ×2 (08:04→20:30)
[2017-10-13] MEDS: CHLORHEXIDINE GLUCONATE 15 ML UDC MM SCH ×2 (08:04→20:30)
[2017-10-13] MEDS: ASCORBIC ACID 500 MG TABLET GT SCH (08:04)
[2017-10-13] MEDS: PANTOPRAZOLE 40 MG/PACK PACK GT SCH ×2 (08:04→16:10)
[2017-10-13] MEDS: LORAZEPAM 1 MG TABLET GT PRN (08:04)
[2017-10-13] MEDS: VIT B CMPLX 3/FA/VIT C/BIOTIN 1 TAB TABLET GT SCH (08:04)
[2017-10-13] MEDS: LEVETIRACETAM SOL (5 ML) 100 MG/ML UDC GT SCH ×2 (08:04→16:11)
[2017-10-13] MEDS: ESCITALOPRAM OXALATE (10 MG) 10 MG TABLET GT SCH (08:04)
[2017-10-13] MEDS: GABAPENTIN 300 MG CAPSULE GT SCH ×3 (08:04→16:11)
[2017-10-13] MEDS: ACIDOPHILUS/BULGARICUS 1 EACH TAB.CHEW GT SCH ×2 (08:04→16:10)
[2017-10-13] MEDS: MIDODRINE HCL (5MG) 5 MG TABLET GT SCH ×3 (08:05→16:11)
[2017-10-13] MEDS: PROSOURCE / PROSTAT (PYXIS) 30 ML UDC GT SCH (08:06)
[2017-10-13] MEDS: NYSTATIN TOP POWDER 15 GM BOTTLE TP SCH ×2 (08:06→16:12)
[2017-10-13] MEDS: ZINC SULFATE 220 MG CAPSULE GT SCH (08:09)
--- NOTE | 2017-10-13 12:00 | NUR ---
RN NOTES PT STABLE , TOLERATING TF WELL, CONTINUE TO MONITOR .
[2017-10-13 13:13] LABS: BASOPHILS % (AUTO) 0.4 % (0.0-2.0); EOSINOPHILS % (AUTO) 6.9 % (0.0-6.0); HEMATOCRIT 34 % (39-51); HEMOGLOBIN 10.6 g/dL (13.5-17.5); LYMPHOCYTES # (AUTO) 0.7 /CMM (0.8-4.8); LYMPHOCYTES % (AUTO) 7.4 % (20.0-44.0); MEAN CORPUSCULAR HEMOGLOBIN 32 PG (26.0-33.0); MEAN CORPUSCULAR HGB CONC 32 g/dl (31.0-36.0); MEAN CORPUSCULAR VOLUME 100 fL (80-96); MONOCYTES # (AUTO) 1.2 /CMM (0.1-1.30); MONOCYTES % (AUTO) 13.2 % (2.0-12.0); NEUTROPHILS # (AUTO) 6.4 /CMM (1.8-8.9); NEUTROPHILS % (AUTO) 72.1 % (43.0-81.0); PLATELET COUNT (AUTO) 288 /CMM (150-450); RDW COEFFICIENT OF VARIATION 18.9 (11.5-15.0); RED BLOOD CELL COUNT(AUTO) 3.38 MIL/uL (4.5-6.0); WHITE BLOOD COUNT (AUTO) 8.8 K/uL (4.3-11.0)
[2017-10-13 13:22] LABS: CALCIUM, SERUM 11.7 mg/dL (8.5-10.1); CREATININE 4.4 mg/dL (0.6-1.3); POTASSIUM 3.3 mmol/L (3.5-5.1)
[2017-10-13 13:30] LABS: EOSINOPHILS % (MANUAL) 9 % (0-4); LYMPHOCYTES % (MANUAL) 2 % (16-48); MONOCYTES % (MANUAL) 17 % (0-11.0); NEUTROPHILS % (MANUAL) 72 (42-76)
[2017-10-13] MEDS: EPOETIN ALFA (10,000 UNIT) 10,000 UNIT/ML VIAL IV SCH (15:01)
[2017-10-13] MEDS: LEVOFLOXACIN (250MG) 250 MG TABLET PO SCH (17:02)
--- NOTE | 2017-10-13 18:17 | NUR ---
RN NOTES TRACH SUCTIONING DONE, COLOSTOMY AND SUPRAPUBIC CATH INTACT, NEPRO AT 40CC/HR RUNNING VIA GT , R FA AND L FA IV SITE G 20 CDI, SR UPx3, CALL LIGHT WITHIN EASY REACH, WILL ENDOSE TO FOREST FIREFIGHTER NURSE FOR CLAUDIA .
--- NOTE | 2017-10-13 18:43 | NUR ---
RT VENT PLUGGED INTO WHITE OUTLET AT THIS TIME DUE TO RED OUTLET BEING NON OPERATIONAL. VENT IS RUNNING PROPERLY WITH EXTERNAL POWER FROM WHITE OUTLET. ENGINEERING WAS CALLED AND CHARGE NURSE AWARE OF SITUATION. ONCOMING RESPIRATORY THERAPIST NOTIFIED AND AWARE OF SITUATION. NO RESPIRATORY DISTRESS NOTED AT THIS TIME. Addendum: 10/13/17 at 1843 by MARAL CANCHOLA RT Amended: Links added.
[2017-10-14] VITALS (8 sets, daily range): BP systolic 90–139; BP diastolic 52–73
[2017-10-14] MEDS: SUCRALFATE 1 G/10 ML UDC GT SCH ×3 (05:03→18:09)
[2017-10-14] MEDS: BLOOD SUGAR DIAGNOSTIC 1 EACH STRIP IN SCH ×3 (05:04→18:09)
[2017-10-14] MEDS: NEPRO 1,000 ML BOTTLE GT PRN (05:04)
[2017-10-14] MEDS: ZINC SULFATE 220 MG CAPSULE GT SCH (09:11)
[2017-10-14] MEDS: CHLORHEXIDINE GLUCONATE 15 ML UDC MM SCH ×2 (09:11→22:11)
[2017-10-14] MEDS: VIT B CMPLX 3/FA/VIT C/BIOTIN 1 TAB TABLET GT SCH (09:12)
[2017-10-14] MEDS: GABAPENTIN 300 MG CAPSULE GT SCH ×3 (09:12→18:09)
[2017-10-14] MEDS: LEVETIRACETAM SOL (5 ML) 100 MG/ML UDC GT SCH ×2 (09:12→18:09)
[2017-10-14] MEDS: PANTOPRAZOLE 40 MG/PACK PACK GT SCH ×2 (09:13→18:09)
[2017-10-14] MEDS: PROSOURCE / PROSTAT (PYXIS) 30 ML UDC GT SCH (09:13)
[2017-10-14] MEDS: ESCITALOPRAM OXALATE (10 MG) 10 MG TABLET GT SCH (09:13)
[2017-10-14] MEDS: LORAZEPAM 1 MG TABLET GT PRN (09:13)
[2017-10-14] MEDS: METOCLOPRAMIDE HCL 10 MG TABLET GT SCH ×2 (09:13→22:11)
[2017-10-14] MEDS: ACIDOPHILUS/BULGARICUS 1 EACH TAB.CHEW GT SCH ×2 (09:13→18:09)
[2017-10-14] MEDS: MIDODRINE HCL (5MG) 5 MG TABLET GT SCH ×3 (09:13→18:09)
[2017-10-14] MEDS: ASCORBIC ACID 500 MG TABLET GT SCH (09:13)
[2017-10-14] MEDS: NYSTATIN TOP POWDER 15 GM BOTTLE TP SCH ×2 (09:14→18:10)
[2017-10-14] MEDS: LEVOFLOXACIN (250MG) 250 MG TABLET PO SCH (18:09)
--- NOTE | 2017-10-14 20:05 | NUR ---
RN NOTES RECEIVED PATIENT COMFORTABLY RESTING IN BED WITH NO RESPIRATORY DISTRESS OR SHORTNESS OF BREATH. BREATHING EVEN AND UNLABORED. VENT SETTING WELL TOLERATED.AWAKE, ALERT AND ORIENTED WITH EPISODES OF FORGETFULNESS AND CONFUSION. ABLE TO VERBALIZE NEEDS. NO COMPLAINT OF PAIN OR DISCOMFORT OF THIS TIME. GTUBE INTACT, FEEDING WELL TOLERATED. HOB ELEVATED. SUPRAPUBIC CATHETER IN PLACE DRAINING CLEAR YELLOW WITH NO FOUL ODOR URINE. KEPT CLEAN AND DRY. WILL CONTINUE TO MONITOR
[2017-10-15] VITALS (7 sets, daily range): BP systolic 94–120; BP diastolic 59–68
[2017-10-15] MEDS: BLOOD SUGAR DIAGNOSTIC 1 EACH STRIP IN SCH ×5 (00:52→23:48)
[2017-10-15] MEDS: INSULIN ASPART/LISPRO 100 UNIT/ML CARTRIDGE SQ PRN ×2 (00:52→05:53)
[2017-10-15] MEDS: SUCRALFATE 1 G/10 ML UDC GT SCH ×5 (00:54→23:45)
--- NOTE | 2017-10-15 07:30 | NUR ---
GREASE MAN INITIAL NOTES: RECEIVED PT IN BED SLEEPING, EASY TO AROUSE. A&O X 2. TRACH VENT PT, TOLERATING SETTINGS WELL. AMBU BAG AND BACK UP TRACH AT BEDSIDE. NO RESPIRATORY DISTRESS NOTED AT THIS TIME. GT FEEDING RUNNING AT 40ML/HR, TOLERATING WELL. L CHEST WALL PERMACATH IN PLACE, IV TO R FA #22 AND LFA #20 GAUGE. PLAN OF CARE TO CONTINUE ATB FOR PERMACATH INFECTION. BED IN LOW LOCKED POSITION, CALL LIGHT WITHIN REACH. PLAN OF CARE DISCUSSED WITH PT. WILL CONTINUE TO MONITOR.
[2017-10-15] MEDS: ESCITALOPRAM OXALATE (10 MG) 10 MG TABLET GT SCH (08:32)
[2017-10-15] MEDS: ASCORBIC ACID 500 MG TABLET GT SCH (08:32)
[2017-10-15] MEDS: VIT B CMPLX 3/FA/VIT C/BIOTIN 1 TAB TABLET GT SCH (08:32)
[2017-10-15] MEDS: MIDODRINE HCL (5MG) 5 MG TABLET GT SCH ×3 (08:32→17:14)
[2017-10-15] MEDS: ACIDOPHILUS/BULGARICUS 1 EACH TAB.CHEW GT SCH ×2 (08:32→17:13)
[2017-10-15] MEDS: CHLORHEXIDINE GLUCONATE 15 ML UDC MM SCH ×2 (08:32→20:46)
[2017-10-15] MEDS: ZINC SULFATE 220 MG CAPSULE GT SCH (08:32)
[2017-10-15] MEDS: METOCLOPRAMIDE HCL 10 MG TABLET GT SCH ×2 (08:32→20:46)
[2017-10-15] MEDS: LEVETIRACETAM SOL (5 ML) 100 MG/ML UDC GT SCH ×2 (08:33→17:13)
[2017-10-15] MEDS: PANTOPRAZOLE 40 MG/PACK PACK GT SCH ×2 (08:33→17:13)
[2017-10-15] MEDS: NYSTATIN TOP POWDER 15 GM BOTTLE TP SCH ×2 (08:33→17:14)
[2017-10-15] MEDS: GABAPENTIN 300 MG CAPSULE GT SCH ×3 (08:33→17:13)
[2017-10-15] MEDS: PROSOURCE / PROSTAT (PYXIS) 30 ML UDC GT SCH (08:39)
[2017-10-15] MEDS: NEPRO 1,000 ML BOTTLE GT PRN (11:01)
--- NOTE | 2017-10-15 12:30 | NUR ---
COMPOUNDING TECHNICIAN NOTES: CALLED PHARMACY FOR EPOGEN DELIVERY. PER PHARMACIST, NO HGB LEVEL WAS DRAWN FOR TODAY AND NEEDS TO BE DONE BEFORE ADMINISTERING EPOGEN. LAB ORDERED FOR CBC TODAY. AWAITING RESULTS
[2017-10-15 14:50] LABS: BASOPHILS % (AUTO) 0.3 % (0.0-2.0); EOSINOPHILS % (AUTO) 7.1 % (0.0-6.0); HEMATOCRIT 37 % (39-51); HEMOGLOBIN 11.3 g/dL (13.5-17.5); LYMPHOCYTES # (AUTO) 0.6 /CMM (0.8-4.8); LYMPHOCYTES % (AUTO) 6.1 % (20.0-44.0); MEAN CORPUSCULAR HEMOGLOBIN 31 PG (26.0-33.0); MEAN CORPUSCULAR HGB CONC 31 g/dl (31.0-36.0); MEAN CORPUSCULAR VOLUME 100 fL (80-96); MONOCYTES # (AUTO) 1.3 /CMM (0.1-1.30); MONOCYTES % (AUTO) 12.7 % (2.0-12.0); NEUTROPHILS # (AUTO) 7.5 /CMM (1.8-8.9); NEUTROPHILS % (AUTO) 73.8 % (43.0-81.0); RDW COEFFICIENT OF VARIATION 18.9 (11.5-15.0); RED BLOOD CELL COUNT(AUTO) 3.68 MIL/uL (4.5-6.0); WHITE BLOOD COUNT (AUTO) 10.1 K/uL (4.3-11.0)
[2017-10-15] MEDS: EPOETIN ALFA (10,000 UNIT) 10,000 UNIT/ML VIAL IV SCH (15:00)
--- NOTE | 2017-10-15 15:03 | NUR ---
RT PT RECEIVED WITH A SHILEY 6 TRACH ON THE VENT WITH NOTED SETTINGS. PT IS AWAKE AND ALERT. VENT ALARMS ARE SET AND AUDIBLE WITH BVM BY BEDSIDE. TUNNELLER CUFF PRESSURE NOTED. VENT IS PLUGGED INTO RED OUTLET. NO RESPIRATORY DISTRESS NOTED AT THIS TIME, WILL CONTINUE TO MONITOR.
[2017-10-15 15:57] LABS: PLATELET COUNT (AUTO) 290 /CMM (150-450)
[2017-10-15] MEDS: LEVOFLOXACIN (250MG) 250 MG TABLET PO SCH (17:54)
--- NOTE | 2017-10-15 19:00 | NUR ---
PAINTER AND PAPERHANGER APPRENTICE END NOTES: PT REMAINS IN BED AWAKE, INTERMITTENTLY SLEEPING. DENIES ANY PAIN OR DISCOMFORT AT THIS TIME. TRACH/VENT. TOLERATING SETTINGS WELL. AMBU BAG AND BACK UP TRACH AT BEDSIDE. NO RESPIRATORY DISTRESS NOTED. O2 SATURATION AT 99%. GT FEEDING RUNNING AT 40ML/HR ORDERED. NO RESIDUAL NOTED. ALL DUE MEDS GIVEN ORDERED. PT CLEANED AND REPOSITIONED, DRESSINGS CHANGED. BED IN LOW LOCKED POSITION, CALL LIGHT WITHIN REACH. WILL ENDORSE TO PM SHIFT FOR CONTINUITY OF CARE.
--- NOTE | 2017-10-15 19:45 | NUR ---
CHIEF OF SERVICE NOTE RECEIVED PATIENT FROM DAY SHIFT, PATIENT IS ALERT AND ORIENTEDX3, VENT DEPENDENT, SATTING 100%, NO S/S OF RESPIRATORY DISTRESS AND NO PAIN NOTED AT THIS TIME, COLOSTOMY BAG ON RIGHT ABD PRESENT, SUPRAPUBIC VILLA PRESENT WITH SCANTY AMOUNT OF ROSALES URINE. LCW PERMACATH AND TWO IV SITES ON RIGHT FA AND LEFT FA ARE PATENT AND INTACT, SL ONLY. TELE SR 60. SRX2, BED IN LOW POSITION, CALL LIGHT WITHIN REACH, WILL CONTINUE TO MONITOR PATIENT.
[2017-10-16] VITALS: BP 96/55
--- NOTE | 2017-10-16 00:57 | NUR ---
RT PATIENT RECEIVED W A RAH #6 DCT TRACH AND ON VENT W NOTED SETTINGS. ALARMS ARE ON AND AUDIBLE. CATCHER PLUG CUFF PRESSURE NOTED W AMBUBAG AT THE [facility]. PATIENT IS AWAKE AND ALERT AND TOLERATING SETTINGS WELL. BS ARE DIMINISHED BILATERALLY. WILL CONTINUE TO MONITOR. Addendum: 10/16/17 at 0103 by ROSSY FELDMAN RT Amended: Links added.
[2017-10-16 04:00] VITALS: BP 102/54
[2017-10-16] MEDS: BLOOD SUGAR DIAGNOSTIC 1 EACH STRIP IN SCH ×4 (05:36→23:50)
[2017-10-16] MEDS: SUCRALFATE 1 G/10 ML UDC GT SCH ×4 (05:36→23:50)
--- NOTE | 2017-10-16 06:38 | NUR ---
SMOKE INSPECTOR NOTE PATIENT IS RESTING IN BED COMFORTABLY, NO ACUTE DISTRESS NOTED THROUGHOUT THE SHIFT. TWO IV SITES ARE PATENT AND INTACT. ALL DUE MEDS GIVEN, MORNING CARE RENDERED. TELE SB 58. WILL ENDORSE TO DAY SHIFT NURSE FOR CLAUDIA.
--- NOTE | 2017-10-16 07:10 | NUR ---
TELE/RN INITIAL NOTES RECEIVED PT IN BED IN SEMI DUPREE POSITION. ASLEEP BUT AROUSABLE TO NAME AND LIGHT TOUCH. TRACH #6 INTACT. TOLERATING VENT SETTINGS: AC 12, TV 500, FI02 30%, PEEP 5. SINUS LINETTE 58 ON TELE MONITOR. NO SIGNS OF INFECTION ON COLOSTOMY NOTED. SUPRAPUBIC CATH INTACT DRAINING YELLOW COLORED URINE. WITH ONGOING GTF NEPRO AT 40 ML/HR, TOLERATING WELL, NO RESIDUE NOTED. WITH INTACT L CHEST WALL PERMACATH, IV SL RFA AND LFA. HOB ELEVATED. SAFETY MEASURES OBSERVED. CALL LIGHT WITHIN REACH. WILL CONT TO MONITOR
[2017-10-16 08:00] VITALS: BP 99/68
[2017-10-16] MEDS: VIT B CMPLX 3/FA/VIT C/BIOTIN 1 TAB TABLET GT SCH (08:57)
[2017-10-16] MEDS: PANTOPRAZOLE 40 MG/PACK PACK GT SCH ×2 (08:57→17:21)
[2017-10-16] MEDS: CHLORHEXIDINE GLUCONATE 15 ML UDC MM SCH ×2 (08:57→21:02)
[2017-10-16] MEDS: ESCITALOPRAM OXALATE (10 MG) 10 MG TABLET GT SCH (08:58)
[2017-10-16] MEDS: MIDODRINE HCL (5MG) 5 MG TABLET GT SCH ×3 (08:58→17:20)
[2017-10-16] MEDS: ASCORBIC ACID 500 MG TABLET GT SCH (08:58)
[2017-10-16] MEDS: METOCLOPRAMIDE HCL 10 MG TABLET GT SCH ×2 (08:58→21:02)
[2017-10-16] MEDS: LEVETIRACETAM SOL (5 ML) 100 MG/ML UDC GT SCH ×2 (08:58→17:21)
[2017-10-16] MEDS: GABAPENTIN 300 MG CAPSULE GT SCH ×3 (08:58→17:21)
[2017-10-16] MEDS: PROSOURCE / PROSTAT (PYXIS) 30 ML UDC GT SCH (08:58)
[2017-10-16] MEDS: ZINC SULFATE 220 MG CAPSULE GT SCH (08:58)
[2017-10-16] MEDS: ACIDOPHILUS/BULGARICUS 1 EACH TAB.CHEW GT SCH ×2 (08:58→17:21)
[2017-10-16] MEDS: NYSTATIN TOP POWDER 15 GM BOTTLE TP SCH ×2 (09:13→17:26)
[2017-10-16 12:00] VITALS: BP 112/69
--- NOTE | 2017-10-16 12:20 | NUR ---
RN NOTES HD STARTED. VS FOLLOWS: BP: 106/61, WA: 57, SEE HD NOTES
[2017-10-16 14:28] LABS: BASOPHILS % (AUTO) 0.6 % (0.0-2.0); EOSINOPHILS % (AUTO) 9.9 % (0.0-6.0); HEMATOCRIT 36 % (39-51); HEMOGLOBIN 10.9 g/dL (13.5-17.5); LYMPHOCYTES # (AUTO) 0.6 /CMM (0.8-4.8); MEAN CORPUSCULAR HEMOGLOBIN 31 PG (26.0-33.0); MEAN CORPUSCULAR HGB CONC 31 g/dl (31.0-36.0); MEAN CORPUSCULAR VOLUME 100 fL (80-96); MONOCYTES # (AUTO) 1.1 /CMM (0.1-1.30); MONOCYTES % (AUTO) 13.4 % (2.0-12.0); NEUTROPHILS # (AUTO) 5.4 /CMM (1.8-8.9); NEUTROPHILS % (AUTO) 68.1 % (43.0-81.0); PLATELET COUNT (AUTO) 302 /CMM (150-450); RDW COEFFICIENT OF VARIATION 18.6 (11.5-15.0); RED BLOOD CELL COUNT(AUTO) 3.57 MIL/uL (4.5-6.0)
[2017-10-16 14:38] LABS: CALCIUM, SERUM 11.5 mg/dL (8.5-10.1); CREATININE 4.8 mg/dL (0.6-1.3); POTASSIUM 3.5 mmol/L (3.5-5.1)
--- NOTE | 2017-10-16 15:20 | NUR ---
RN NOTES HD DONE, CURRENT BP 90/56; AK 69, PT TOLERATED WELL
[2017-10-16 16:00] VITALS: BP 89/57
[2017-10-16] MEDS: LEVOFLOXACIN (250MG) 250 MG TABLET PO SCH (18:06)
[2017-10-16] MEDS: LEVOFLOXACIN (250MG) 250 MG TABLET GT SCH (18:08)
--- NOTE | 2017-10-16 19:13 | NUR ---
TELE/RN CLOSING NOTES NO ACUTE DISTRESS NOTED THROUGHOUT SHIFT. SAFETY MEASURES AND ASPIRATION PRECAUTION OBSERVED AT ALL TIMES. ALL NEEDS ATTENDED. ENDORSED TO PM SHIFT NURSE FOR CLAUDIA
--- NOTE | 2017-10-16 19:39 | NUR ---
BOTTLER NOTES RECEIVED PT ON BED A/O X2. ON MECH VENT SETTING SATURATING WELL. ON GTUBE FEEDING @ 40ML/HR. IV ACCESS ON LCW PERMACATH NO SIGN OF BLEEDING OR INFECTION. IV ACCESS ON RFA #22 LFA #22 SL. HEAD OF BED ELEVATED. SIDE RAILS UP. CALL LIGHT WITHIN REACH. WILL CONTINUE TO MONITOR PT CLOSELY.
[2017-10-16 20:00] VITALS: BP 97/56
[2017-10-17] VITALS: BP 97/83
[2017-10-17] MEDS: ACETAMINOPHEN 650 MG/20.3 ML UDC GT PRN ×2 (01:31→08:27)
[2017-10-17 04:00] VITALS: BP 96/61
[2017-10-17] MEDS: BLOOD SUGAR DIAGNOSTIC 1 EACH STRIP IN SCH ×4 (05:10→23:04)
[2017-10-17] MEDS: SUCRALFATE 1 G/10 ML UDC GT SCH ×4 (05:10→23:04)
--- NOTE | 2017-10-17 06:52 | NUR ---
NEEDLE CONTROL CHENILLER NOTES NO ACUTE CHANGES NOTED DURING THE SHIFT. PROVIDED COMFORT AND SAFETY. DUE MEDS GIVEN. WILL ENDORSE TO THE AM NURSE FOR CLAUDIA.
--- NOTE | 2017-10-17 07:25 | NUR ---
COMMUNICATIONS ELECTRICIAN SUPERVISOR OPENING NOTES RECEIVED PT LAYING IN BED WITH HOB ELEVATED. PT IS AWAKE, A/O X2-3, RESPIRATIONS ARE EVEN AND UNLABORED, NOT IN ANY ACUTE DISTRESS NOTED. PT DENIES ANY PAIN, SOB, N/V. CURRENTLY ON A MECHANICAL VENT AND TOLERATING WELL. IV SITE INTACT, NO INFILTRATION NOTED. GT INTACT, FREE OF KINKS. PT TOLERATED TUBE FEEDING WELL W/ NO RESIDUAL. SUPRAPUBIC CATH IN PLACE, FREE OF KINKS, URINE DRAINING FREELY. SAFETY MEASURES ARE IN PLACE. WILL CONTINUE TO MONITOR THORUGHOUT SHIFT.
[2017-10-17 07:39] LABS: BASOPHILS % (AUTO) 0.4 % (0.0-2.0); EOSINOPHILS % (AUTO) 6.9 % (0.0-6.0); HEMATOCRIT 35 % (39-51); HEMOGLOBIN 10.9 g/dL (13.5-17.5); LYMPHOCYTES # (AUTO) 0.6 /CMM (0.8-4.8); LYMPHOCYTES % (AUTO) 4.9 % (20.0-44.0); MEAN CORPUSCULAR HEMOGLOBIN 31 PG (26.0-33.0); MEAN CORPUSCULAR HGB CONC 32 g/dl (31.0-36.0); MEAN CORPUSCULAR VOLUME 100 fL (80-96); MONOCYTES # (AUTO) 1.9 /CMM (0.1-1.30); MONOCYTES % (AUTO) 16.5 % (2.0-12.0); NEUTROPHILS # (AUTO) 8.3 /CMM (1.8-8.9); NEUTROPHILS % (AUTO) 71.3 % (43.0-81.0); PLATELET COUNT (AUTO) 300 /CMM (150-450); RDW COEFFICIENT OF VARIATION 18.5 (11.5-15.0); RED BLOOD CELL COUNT(AUTO) 3.47 MIL/uL (4.5-6.0); WHITE BLOOD COUNT (AUTO) 11.6 K/uL (4.3-11.0)
[2017-10-17 07:49] LABS: CALCIUM, SERUM 11.3 mg/dL (8.5-10.1); CREATININE 3.6 mg/dL (0.6-1.3); MAGNESIUM 2.1 mg/dL (1.8-2.4); PHOSPHORUS 2.4 mg/dL (2.5-4.9); POTASSIUM 3.1 mmol/L (3.5-5.1)
[2017-10-17 08:00] VITALS: BP 105/85
[2017-10-17] MEDS: CHLORHEXIDINE GLUCONATE 15 ML UDC MM SCH ×2 (08:25→21:01)
[2017-10-17] MEDS: LEVETIRACETAM SOL (5 ML) 100 MG/ML UDC GT SCH ×2 (08:25→16:14)
[2017-10-17] MEDS: ESCITALOPRAM OXALATE (10 MG) 10 MG TABLET GT SCH (08:26)
[2017-10-17] MEDS: METOCLOPRAMIDE HCL 10 MG TABLET GT SCH ×2 (08:26→21:01)
[2017-10-17] MEDS: ASCORBIC ACID 500 MG TABLET GT SCH (08:26)
[2017-10-17] MEDS: ZINC SULFATE 220 MG CAPSULE GT SCH (08:26)
[2017-10-17] MEDS: GABAPENTIN 300 MG CAPSULE GT SCH ×3 (08:26→16:14)
[2017-10-17] MEDS: ACIDOPHILUS/BULGARICUS 1 EACH TAB.CHEW GT SCH ×2 (08:26→16:15)
[2017-10-17] MEDS: VIT B CMPLX 3/FA/VIT C/BIOTIN 1 TAB TABLET GT SCH (08:26)
[2017-10-17] MEDS: MIDODRINE HCL (5MG) 5 MG TABLET GT SCH ×4 (08:27→16:26)
[2017-10-17] MEDS: PROSOURCE / PROSTAT (PYXIS) 30 ML UDC GT SCH (08:34)
[2017-10-17] MEDS: PANTOPRAZOLE 40 MG/PACK PACK GT SCH ×2 (08:34→16:15)
[2017-10-17] MEDS: NYSTATIN TOP POWDER 15 GM BOTTLE TP SCH ×2 (08:35→16:16)
[2017-10-17 10:30] LABS: EOSINOPHILS % (MANUAL) 8 % (0-4); LYMPHOCYTES % (MANUAL) 2 % (16-48); MONOCYTES % (MANUAL) 19 % (0-11.0); NEUTROPHILS % (MANUAL) 71 (42-76)
[2017-10-17 12:00] VITALS: BP 109/69
--- NOTE | 2017-10-17 13:32 | NUR ---
AMORTIZATION SCHEDULE CLERK NOTES PT IS NOT IN ANY APPARENT DISTRESS. PT TOLERATING GT FEEDING W/ NO RESIDUAL. PT REPOSITIONED PER PROTOCOL. WILL CONTINUE TO MONITOR THROUGHOUT SHIFT.
[2017-10-17 16:00] VITALS: BP 127/83
[2017-10-17] MEDS: NEPRO 1,000 ML BOTTLE GT PRN (16:31)
[2017-10-17] MEDS: LEVOFLOXACIN (250MG) 250 MG TABLET GT SCH (17:36)
--- NOTE | 2017-10-17 18:28 | NUR ---
WAGE AND HOUR INVESTIGATOR CLOSING NOTES ALL DUE MEDS GIVEN, NEEDS MET AND RENDERED. PT REMAINS A/O X2-3, RESPIRATIONS ARE EVEN AND UNLABORED, NOT IN ANY ACUTE DISTRESS NOTED. PT DENIES ANY PAIN, N/V. CURRENTLY ON A MECHANICAL VENT AND TOLERATING WELL. SUPRAPUBIC CATH IN PLACE, FREE OF KINKS, URINE DRAINING FREELY. IV SITE INTACT, NO INFILTRATION NOTED. GT INTACT, FREE OF KINKS. PT TOLERATED TUBE FEEDING WELL W/ NO RESIDUAL. SAFETY MEASURES ARE IN PLACE. WILL ENDORSE TO NEXT SHIFT FOR CONTINUITY OF CARE.
--- NOTE | 2017-10-17 19:58 | NUR ---
SUPERVISOR MACHINE WORKERS INITIAL NOTES RECEIVED PT IN BED WITH HOB ELEVATED. PT IS AWAKE, A/O X1-2, RESPIRATIONS ARE EVEN AND UNLABORED, NOT SIGN OF DISTRESS NOTED. PT MAINTAINED ON MECHANICAL VENT AND TOLERATING WELL. IV SITE INTACT, NO INFILTRATION NOTED. GTF RUNNING, PT TOLERATED TUBE FEEDING WELL W/ NO RESIDUAL. SUPRAPUBIC CATH IN PLACE, FREE OF KINKS, URINE DRAINING FREELY. SAFETY MEASURES ARE IN PLACE. WILL CONTINUE TO MONITOR THROUGH SHIFT.
[2017-10-17 20:00] VITALS: BP_SYST 87; BP_SYST 92; BP_DIAS 57
[2017-10-18] VITALS (7 sets, daily range): BP systolic 84–121; BP diastolic 53–79
[2017-10-18] MEDS: BLOOD SUGAR DIAGNOSTIC 1 EACH STRIP IN SCH ×4 (05:03→23:30)
[2017-10-18] MEDS: SUCRALFATE 1 G/10 ML UDC GT SCH ×4 (05:04→23:30)
--- NOTE | 2017-10-18 06:21 | NUR ---
DANDY TENDER CLOSING NOTES ENDORSED PT IN BED WITH HOB ELEVATED. PT IS AWAKE, A/O X1-2, RESPIRATIONS ARE EVEN AND UNLABORED, NOT SIGN OF DISTRESS NOTED. PT MAINTAINED ON MECHANICAL VENT AND TOLERATING WELL. IV SITE INTACT, NO INFILTRATION NOTED. GTF RUNNING, PT TOLERATED TUBE FEEDING WELL W/ NO RESIDUAL. SUPRAPUBIC CATH IN PLACE, FREE OF KINKS, URINE DRAINING FREELY. SAFETY MEASURES ARE IN PLACE.
[2017-10-18 06:22] LABS: BASOPHILS % (AUTO) 0.4 % (0.0-2.0); EOSINOPHILS % (AUTO) 8.8 % (0.0-6.0); HEMATOCRIT 36 % (39-51); HEMOGLOBIN 10.7 g/dL (13.5-17.5); LYMPHOCYTES # (AUTO) 0.6 /CMM (0.8-4.8); LYMPHOCYTES % (AUTO) 5.1 % (20.0-44.0); MEAN CORPUSCULAR HEMOGLOBIN 30 PG (26.0-33.0); MEAN CORPUSCULAR HGB CONC 30 g/dl (31.0-36.0); MEAN CORPUSCULAR VOLUME 100 fL (80-96); MONOCYTES # (AUTO) 2.1 /CMM (0.1-1.30); MONOCYTES % (AUTO) 17.1 % (2.0-12.0); NEUTROPHILS # (AUTO) 8.4 /CMM (1.8-8.9); NEUTROPHILS % (AUTO) 68.6 % (43.0-81.0); PLATELET COUNT (AUTO) 314 /CMM (150-450); RDW COEFFICIENT OF VARIATION 18.6 (11.5-15.0); RED BLOOD CELL COUNT(AUTO) 3.55 MIL/uL (4.5-6.0); WHITE BLOOD COUNT (AUTO) 12.2 K/uL (4.3-11.0)
[2017-10-18 06:54] LABS: CALCIUM, SERUM 11.8 mg/dL (8.5-10.1); CREATININE 4.7 mg/dL (0.6-1.3); MAGNESIUM 2.2 mg/dL (1.8-2.4); PHOSPHORUS 3.5 mg/dL (2.5-4.9); POTASSIUM 3.5 mmol/L (3.5-5.1)
[2017-10-18 07:07] LABS: BAND % (MANUAL) 4 % (0.0-5.0); EOSINOPHILS % (MANUAL) 5 % (0-4); LYMPHOCYTES % (MANUAL) 6 % (16-48); METAMYELOCYTES % 1 % (0-0); MONOCYTES % (MANUAL) 18 % (0-11.0); NEUTROPHILS % (MANUAL) 66 (42-76)
--- NOTE | 2017-10-18 07:30 | NUR ---
THROW OUT CLERK INITIAL NOTES: RECEIVED PT IN BED AWAKE, A&O X2. TRACH/VENT PATIENT, TOLERATING SETTINGS WELL. O2 SATURATION 99%. AMBU BAG AND BACK UP TRACH AT BEDSIDE. ON TELE MONITOR, SR. SUPRAPUBIC CATHETER IN PLACE, COLOSTOMY BAG IN PLACE. GT FEEDING WAS RUNNING AT 40ML/HR, BUT PT HAD EPISODE OF VOMIT X1. GT FEEDING TURNED OFF AT THIS TIME. WILL CONTINUE TO MONITOR. IV TO RFA AND LFA PATENT AND INTACT. BED IN LOW LOCKED POSITION, CALL LIGHT WITHIN REACH. PLAN OF CARE DISCUSSED WITH PT. WILL CONTINUE TO MONITOR.
[2017-10-18] MEDS: PROSOURCE / PROSTAT (PYXIS) 30 ML UDC GT SCH (08:19)
[2017-10-18] MEDS: ACIDOPHILUS/BULGARICUS 1 EACH TAB.CHEW GT SCH ×2 (08:20→16:18)
[2017-10-18] MEDS: ESCITALOPRAM OXALATE (10 MG) 10 MG TABLET GT SCH (08:20)
[2017-10-18] MEDS: LEVETIRACETAM SOL (5 ML) 100 MG/ML UDC GT SCH ×2 (08:20→16:18)
[2017-10-18] MEDS: CHLORHEXIDINE GLUCONATE 15 ML UDC MM SCH ×2 (08:20→21:20)
[2017-10-18] MEDS: PANTOPRAZOLE 40 MG/PACK PACK GT SCH ×2 (08:20→16:18)
[2017-10-18] MEDS: METOCLOPRAMIDE HCL 10 MG TABLET GT SCH ×2 (08:20→21:20)
[2017-10-18] MEDS: ASCORBIC ACID 500 MG TABLET GT SCH (08:20)
[2017-10-18] MEDS: GABAPENTIN 300 MG CAPSULE GT SCH ×3 (08:20→16:18)
[2017-10-18] MEDS: ZINC SULFATE 220 MG CAPSULE GT SCH (08:20)
[2017-10-18] MEDS: VIT B CMPLX 3/FA/VIT C/BIOTIN 1 TAB TABLET GT SCH (08:21)
[2017-10-18] MEDS: NYSTATIN TOP POWDER 15 GM BOTTLE TP SCH ×2 (08:21→16:19)
[2017-10-18] MEDS: MIDODRINE HCL (5MG) 5 MG TABLET GT SCH ×3 (08:21→16:18)
--- NOTE | 2017-10-18 09:30 | NUR ---
BOWLING BALL GRADER AND MARKER NOTES: ALL AM MEDS GIVEN ORDERED. PT HAS NOT FURTHER EPISODES OF VOMITING. DENIES NAUSEA AT THIS TIME. GT FEEDING RESUMED. NO RESIDUAL NOTED. WILL CONTINUE TO MONITOR.
[2017-10-18] MEDS: EPOETIN ALFA (10,000 UNIT) 10,000 UNIT/ML VIAL IV SCH (13:10)
--- NOTE | 2017-10-18 13:10 | NUR ---
DIALYSIS NURSE AT BEDSIDE FOR SCHEDULED HD TODAY.
--- NOTE | 2017-10-18 14:38 | NUR ---
RT PATIENT RECEIVED TRACHED AND ON VENT W NOTED SETTINGS. ALARMS ARE ON AND AUDIBLE W AMBUBAG AT BEDSIDE. METAL BURRER CUFF PRESSURE NOTED. VENT IS PLUGGED INTO RED OUTLET. PATIENT APPEARS COMFORTABLE AND IS TOLERATING SETTINGS WELL. MODERATE AMOUNTS OF THICK, WHITE/YELLOW SECRETIONS NOTED. NO RESPIRATORY DISTRESS OBSERVED AT THIS TIME. WILL CONTINUE TO MONITOR. Addendum: 10/18/17 at 1439 by ROSSY FELDMAN RT Amended: Links added.
--- NOTE | 2017-10-18 14:50 | NUR ---
DIALYSIS COMPLETED. 1.5L OUT. CURRENT BP 94/59. EPOGEN GIVEN, HD DRESSING CHANGED. PT STABLE AT THIS TIME.
[2017-10-18] MEDS: LEVOFLOXACIN (250MG) 250 MG TABLET GT SCH (18:00)
--- NOTE | 2017-10-18 18:45 | NUR ---
SOLE SCRAPER END NOTES: PT REMAINS IN BED, SLEEPING BUT EASY TO AROUSE. VENT/TRACH, TOLERATING VENT SETTINGS WELL. O2 SATURATION 99%. NO FURTHER EPISODES OF NAUSEA/ VOMITING NOTED. PT DENIES ANY PAIN OR DISCOMFORT AT THIS TIME. PT CLEANED AND ALL DRESSINGS CHANGED. AMBUG BAG AND BACK UP TRACH AT BEDSIDE. WILL ENDORSE TO PM SHIFT FOR CONTINUITY OF CARE.
[2017-10-18] MEDS: NEPRO 1,000 ML BOTTLE GT PRN (19:22)
[2017-10-18] MEDS: LORAZEPAM 1 MG TABLET GT PRN (21:26)
[2017-10-19] VITALS: BP 131/68
[2017-10-19 04:00] VITALS: BP 100/64
[2017-10-19] MEDS: SUCRALFATE 1 G/10 ML UDC GT SCH ×4 (05:25→23:59)
[2017-10-19] MEDS: BLOOD SUGAR DIAGNOSTIC 1 EACH STRIP IN SCH ×4 (05:25→23:58)
--- NOTE | 2017-10-19 07:50 | NUR ---
INITIAL SOAPING DEPARTMENT SUPERVISOR NOTE REPORT RECEIVED FROM RAMÓN MICHELLE PM SHIFT. PATIENT CLEAN AND DRY. CALM AND COOPERATIVE. PATIENT A/O X2. SHILEY # 6 AC 12 TV 500 FI02 30% PEEP 5. COLOSTOMY BAG AND SUPRAPUBIC CATH INTACT. LFA #22 PATIENT AND INTACT. NEPRO @ 40 ML/HR RUNNING PLACEMENT CK PER AUSCULTATION NO RESIDUAL. ALL SAFETY MEASURES IN PLACE. WILL CONTINUE TO MONITOR CLOSELY.
[2017-10-19 08:00] VITALS: BP 94/60
[2017-10-19] MEDS: VIT B CMPLX 3/FA/VIT C/BIOTIN 1 TAB TABLET GT SCH (08:34)
[2017-10-19] MEDS: METOCLOPRAMIDE HCL 10 MG TABLET GT SCH ×2 (08:34→20:10)
[2017-10-19] MEDS: ACIDOPHILUS/BULGARICUS 1 EACH TAB.CHEW GT SCH ×2 (08:34→16:58)
[2017-10-19] MEDS: GABAPENTIN 300 MG CAPSULE GT SCH ×3 (08:34→16:58)
[2017-10-19] MEDS: ZINC SULFATE 220 MG CAPSULE GT SCH (08:34)
[2017-10-19] MEDS: CHLORHEXIDINE GLUCONATE 15 ML UDC MM SCH ×2 (08:34→20:10)
[2017-10-19] MEDS: PROSOURCE / PROSTAT (PYXIS) 30 ML UDC GT SCH (08:34)
[2017-10-19] MEDS: ASCORBIC ACID 500 MG TABLET GT SCH (08:34)
[2017-10-19] MEDS: ESCITALOPRAM OXALATE (10 MG) 10 MG TABLET GT SCH (08:34)
[2017-10-19] MEDS: LEVETIRACETAM SOL (5 ML) 100 MG/ML UDC GT SCH ×2 (08:35→16:58)
[2017-10-19] MEDS: PANTOPRAZOLE 40 MG/PACK PACK GT SCH ×2 (08:36→16:58)
[2017-10-19] MEDS: MIDODRINE HCL (5MG) 5 MG TABLET GT SCH ×3 (08:37→16:58)
[2017-10-19] MEDS: NYSTATIN TOP POWDER 15 GM BOTTLE TP SCH ×2 (08:40→16:59)
[2017-10-19 12:00] VITALS: BP 105/59
[2017-10-19 16:00] VITALS: BP 91/54
[2017-10-19] MEDS: LEVOFLOXACIN (250MG) 250 MG TABLET GT SCH (18:52)
--- NOTE | 2017-10-19 19:24 | NUR ---
CLOSING TELE NOTE REPORT GIVEN FROM RAMÓN MICHELLE PM SHIFT. PATIENT CLEAN AND DRY. CALM AND COOPERATIVE. PATIENT A/O X2. SHILEY # 6 AC 12 TV 500 FI02 30% PEEP 5. COLOSTOMY BAG AND SUPRAPUBIC CATH INTACT. LFA #22 PATIENT AND INTACT. NEPRO @ 40 ML/HR RUNNING. ALL SAFETY MEASURES IN PLACE.
[2017-10-19 20:00] VITALS: BP 134/75
[2017-10-19] MEDS: LORAZEPAM 1 MG TABLET GT PRN (21:23)
[2017-10-20] VITALS: BP 121/67
[2017-10-20] MEDS: NEPRO 1,000 ML BOTTLE GT PRN (00:07)
[2017-10-20 04:00] VITALS: BP 119/64
[2017-10-20] MEDS: BLOOD SUGAR DIAGNOSTIC 1 EACH STRIP IN SCH ×2 (05:00→11:49)
[2017-10-20] MEDS: SUCRALFATE 1 G/10 ML UDC GT SCH ×2 (05:00→11:50)
[2017-10-20 06:13] LABS: BASOPHILS % (AUTO) 0.5 % (0.0-2.0); EOSINOPHILS % (AUTO) 9.2 % (0.0-6.0); HEMATOCRIT 34 % (39-51); HEMOGLOBIN 10.7 g/dL (13.5-17.5); LYMPHOCYTES # (AUTO) 0.5 /CMM (0.8-4.8); LYMPHOCYTES % (AUTO) 5.1 % (20.0-44.0); MEAN CORPUSCULAR HEMOGLOBIN 31 PG (26.0-33.0); MEAN CORPUSCULAR HGB CONC 31 g/dl (31.0-36.0); MEAN CORPUSCULAR VOLUME 100 fL (80-96); MONOCYTES # (AUTO) 1.9 /CMM (0.1-1.30); MONOCYTES % (AUTO) 20.5 % (2.0-12.0); NEUTROPHILS % (AUTO) 64.7 % (43.0-81.0); PLATELET COUNT (AUTO) 308 /CMM (150-450); RDW COEFFICIENT OF VARIATION 18.5 (11.5-15.0); RED BLOOD CELL COUNT(AUTO) 3.43 MIL/uL (4.5-6.0); WHITE BLOOD COUNT (AUTO) 9.3 K/uL (4.3-11.0)
[2017-10-20 06:33] LABS: ALBUMIN 3.5 g/dL (3.4-5.0); BILIRUBIN,TOTAL 0.3 mg/dL (0.2-1.0); CALCIUM, SERUM 11.4 mg/dL (8.5-10.1); CREATININE 3.4 mg/dL (0.6-1.3); MAGNESIUM 2.2 mg/dL (1.8-2.4); PHOSPHORUS 2.2 mg/dL (2.5-4.9); POTASSIUM 3.9 mmol/L (3.5-5.1); TOTAL PROTEIN, SERUM 8.7 g/dL (6.4-8.2)
--- NOTE | 2017-10-20 07:10 | NUR ---
TELE/RN INITIAL NOTES RECEIVED PT IN BED, ASLEEP, AROUSABLE TO NAME AND LIGHT TOUCH. HOB ELEVATED. TRACH SHILEY #6 INTACT WITH VENT SETTINGS: AC 12, TV 500, FIO2 30%, AND PEEP 5. TOLERATING WELL, SINUS LINETTE 55 ON TELE MONITOR. WITH INTACT COLOSTOMY BAG. NO SIGNS OF INFECTION NOTED. WITH INTACT SUPRAPUBIC. WITH ONGOING GTF NEPRO AT 40 ML/HR. TOLERATING WELL, NO RESIDUE NOTED. SAFETY MEASURES IN PLACE AND ASPIRATION PRECAUTION MAINTAINED. CALL LIGHT WITHIN REACH. WILL CONT TO MONITOR
[2017-10-20 08:00] VITALS: BP 125/67
[2017-10-20 08:30] VITALS: BP 125/67
[2017-10-20 08:33] LABS: EOSINOPHILS % (MANUAL) 11 % (0-4); LYMPHOCYTES % (MANUAL) 4 % (16-48); MONOCYTES % (MANUAL) 17 % (0-11.0); NEUTROPHILS % (MANUAL) 68 (42-76)
[2017-10-20] MEDS: ZINC SULFATE 220 MG CAPSULE GT SCH (08:51)
[2017-10-20] MEDS: GABAPENTIN 300 MG CAPSULE GT SCH ×2 (08:51→12:06)
[2017-10-20] MEDS: PANTOPRAZOLE 40 MG/PACK PACK GT SCH (08:51)
[2017-10-20] MEDS: PROSOURCE / PROSTAT (PYXIS) 30 ML UDC GT SCH (08:51)
[2017-10-20] MEDS: CHLORHEXIDINE GLUCONATE 15 ML UDC MM SCH (08:51)
[2017-10-20] MEDS: LEVETIRACETAM SOL (5 ML) 100 MG/ML UDC GT SCH (08:51)
[2017-10-20] MEDS: VIT B CMPLX 3/FA/VIT C/BIOTIN 1 TAB TABLET GT SCH (08:52)
[2017-10-20] MEDS: METOCLOPRAMIDE HCL 10 MG TABLET GT SCH (08:52)
[2017-10-20] MEDS: ACIDOPHILUS/BULGARICUS 1 EACH TAB.CHEW GT SCH (08:52)
[2017-10-20] MEDS: MIDODRINE HCL (5MG) 5 MG TABLET GT SCH ×2 (08:52→12:06)
[2017-10-20] MEDS: ASCORBIC ACID 500 MG TABLET GT SCH (08:52)
[2017-10-20] MEDS: ESCITALOPRAM OXALATE (10 MG) 10 MG TABLET GT SCH (08:57)
[2017-10-20] MEDS: NYSTATIN TOP POWDER 15 GM BOTTLE TP SCH (08:58)
--- NOTE | 2017-10-20 11:50 | NUR ---
RN NOTES PT HAD EPISODE OF VOMITING X1 IN MODERATE AMOUNT, HOB ELEVATED. NO ASPIRATION NOTED WILL ADMINISTER PRN ZOFRAN, WILL CONT TO MONITOR
[2017-10-20] MEDS: ONDANSETRON 4 MG TAB.RAPDIS GT PRN (11:53)
[2017-10-20 12:00] VITALS: BP 126/70
--- NOTE | 2017-10-20 12:00 | NUR ---
RN NOTES NOTED PT HAD ANOTHER EPISODE OF VOMITING IN SMALL AMOUNT. HOB ELEVATED. NO ASPIRATION NOTED. ZOFRAN PRN ADMINISTERED. DR SALDANA NOTIFIED. PER CONT MEDS AND OK TO D/C PT WILL CONT TO MONITOR PT
[2017-10-20 12:06] VITALS: BP 126/70
--- NOTE | 2017-10-20 12:15 | NUR ---
RN NOTES REPORT GIVEN TO VIVIANA SHERIDAN PT'S SISTER, BERRY KYLE MADE AWARE ABOUT PT'S D/C TO [facility]
--- NOTE | 2017-10-20 12:50 | NUR ---
RN NOTES PT DENIES ANY NAUSEA AND VOMITING AT THIS TIME. NO C/O PAIN. HOB ELEVATED. WILL CONT TO MONITOR
--- NOTE | 2017-10-20 13:00 | NUR ---
RN D/C NOTES D/C PT TO [facility] IN STABLE CONDITION. VIA BILLYRISELA ASSISTED BY 2 EMT AND RT. WITH INTACT TRACH, DEVENDRALEY #6. AFEBRILE. DENIES ANY PAIN. DENIES NAUSEA. NO EPISODE OF VOMITING. WITH COLOSTOMY BAG INTACT, SUPRAPUBIC KEPT INTACT, GT IN PLACED, CLAMPED AND INTACT. REPORT GIVEN TO EMT, SAFETY MEASURES OBSERVED AT ALL TIMES, ASPIRATION PRECAUTION MAINTAINED. D/C
== END 2017-10-20 12:46 | DRG 870 ==
LOC: ER 12:18 → TELE1 13:34
PROVIDERS: ADMIT Internal Medicine Nephrology; ATTEND Internal Medicine Nephrology
PROC: 5A1955Z Respiratory Ventilation, Greater than 96 Consecutive Hours (ICD-10-PCS; principal; 2017-10-08)
PROC: 02HV33Z Insertion of Infusion Device into Superior Vena Cava, Percutaneous Approach (ICD-10-PCS; 2017-10-10)
PROC: B518YZA Fluoroscopy of Superior Vena Cava using Other Contrast, Guidance (ICD-10-PCS; 2017-10-10)
PROC: 5A1D70Z Performance of Urinary Filtration, Intermittent, Less than 6 Hours Per Day (ICD-10-PCS; 2017-10-10)
PROC: 5A1D70Z Performance of Urinary Filtration, Intermittent, Less than 6 Hours Per Day (ICD-10-PCS; 2017-10-11)
PROC: 5A1D70Z Performance of Urinary Filtration, Intermittent, Less than 6 Hours Per Day (ICD-10-PCS; 2017-10-12)
PROC: 5A1D70Z Performance of Urinary Filtration, Intermittent, Less than 6 Hours Per Day (ICD-10-PCS; 2017-10-14)
PROC: 5A1D70Z Performance of Urinary Filtration, Intermittent, Less than 6 Hours Per Day (ICD-10-PCS; 2017-10-16)
PROC: 5A1D70Z Performance of Urinary Filtration, Intermittent, Less than 6 Hours Per Day (ICD-10-PCS; 2017-10-18)
PROC: 5A1D70Z Performance of Urinary Filtration, Intermittent, Less than 6 Hours Per Day (ICD-10-PCS; 2017-10-19)
DX: A41.9 Sepsis, unspecified organism (principal); N18.6 End stage renal disease; R53.2 Functional quadriplegia; T82.41XA Breakdown (mechanical) of vascular dialysis catheter, initial encounter; N39.0 Urinary tract infection, site not specified; Z99.11 Dependence on respirator [ventilator] status; J96.11 Chronic respiratory failure with hypoxia; I12.0 Hypertensive chronic kidney disease with stage 5 chronic kidney disease or end stage renal disease; Z99.2 Dependence on renal dialysis; Z93.0 Tracheostomy status; E11.22 Type 2 diabetes mellitus with diabetic chronic kidney disease; E83.52 Hypercalcemia; J44.9 Chronic obstructive pulmonary disease, unspecified; Z93.3 Colostomy status; Z93.1 Gastrostomy status; N31.9 Neuromuscular dysfunction of bladder, unspecified; R13.10 Dysphagia, unspecified; Q05.9 Spina bifida, unspecified; E83.9 Disorder of mineral metabolism, unspecified; J84.10 Pulmonary fibrosis, unspecified; L98.8 Other specified disorders of the skin and subcutaneous tissue; Y83.8 Other surgical procedures as the cause of abnormal reaction of the patient, or of later complication, without mention of misadventure at the time of the procedure; Y92.129 Unspecified place in nursing home as the place of occurrence of the external cause; Z86.14 Personal history of Methicillin resistant Staphylococcus aureus infection; Z88.0 Allergy status to penicillin; Z88.2 Allergy status to sulfonamides; B96.5 Pseudomonas (aeruginosa) (mallei) (pseudomallei) as the cause of diseases classified elsewhere; B96.4 Proteus (mirabilis) (morganii) as the cause of diseases classified elsewhere; L89.620 Pressure ulcer of left heel, unstageable; L90.5 Scar conditions and fibrosis of skin; M62.50 Muscle wasting and atrophy, not elsewhere classified, unspecified site; D63.8 Anemia in other chronic diseases classified elsewhere; Z79.4 Long term (current) use of insulin; K20.9 Esophagitis, unspecified; M41.9 Scoliosis, unspecified; Y71.2 Prosthetic and other implants, materials and accessory cardiovascular devices associated with adverse incidents
CPT/HCPCS: 31720; 36415; 71045-TC; 80048-TC; 80053-TC; 80202-TC; 82306; 82652; 82962-TC; 83605-TC; 83615-TC; 83735-TC; 83970; 84100-TC; 84484-TC; 85025-TC; 85730-TC; 87040-TC; 87081-TC; 90935-TC; 94003-TC; 94760-TC; 94762-TC; A4606; A4623; A6253; A6402; A6403; C1750; C1769; J0690; J0692; J0885; J1644; J1815; J1953; J1956; J2704; J3370; J3490; J7040; J7060; J8597; Q0162; Z7610

== ENCOUNTER 2017-10-29 11:00 | Inpatient (IN) | payer MEDICARE, OTHER ==
[~2017-10-29] VITALS: Ht 152.4 cm; Wt 56.7 kg
[~2017-10-29 11:00] MED LIST changes: +CEFE1VIA3 IV; -INSU100I4 SQ; +INSU100V11 SQ; -IPRA3AMP IH; +IPRA3AMP23 IH; +OMEP20CA10 GT; -PANT40SU GT; +VANC1VIA2 IV
--- NOTE | 2017-10-29 11:08 | NUR ---
DR ALLEN AT BEDSIDE FOR EVAL.
--- NOTE | 2017-10-29 11:25 | NUR ---
IV LINE STARTED BLOOD DRAWN AND SENT TO LAB.
[2017-10-29 11:34] LABS: BASOPHILS # (AUTO) 0.1 /CMM (0.0-0.2); BASOPHILS % (AUTO) 0.7 % (0.0-2.0); EOSINOPHILS % (AUTO) 0.9 % (0.0-6.0); HEMATOCRIT 43 % (39-51); LYMPHOCYTES # (AUTO) 0.7 /CMM (0.8-4.8); LYMPHOCYTES % (AUTO) 3.6 % (20.0-44.0); MEAN CORPUSCULAR HEMOGLOBIN 31 PG (26.0-33.0); MEAN CORPUSCULAR HGB CONC 33 g/dl (31.0-36.0); MEAN CORPUSCULAR VOLUME 95 fL (80-96); MONOCYTES # (AUTO) 1.3 /CMM (0.1-1.30); MONOCYTES % (AUTO) 6.9 % (2.0-12.0); NEUTROPHILS # (AUTO) 16.6 /CMM (1.8-8.9); NEUTROPHILS % (AUTO) 87.9 % (43.0-81.0); PLATELET COUNT (AUTO) 340 /CMM (150-450); RDW COEFFICIENT OF VARIATION 16.1 (11.5-15.0); WHITE BLOOD COUNT (AUTO) 18.9 K/uL (4.3-11.0)
[2017-10-29 11:46] LABS: INR 0.95 (0.85-1.15)
--- NOTE | 2017-10-29 11:46 | NUR ---
RADIOLOGY AT BEDSIDE FOR CHEST XRAY.
[2017-10-29 11:48] LABS: ALANINE AMINOTRANSFERASE 113 U/L (12-78); ALBUMIN 3.8 g/dL (3.4-5.0); ALKALINE PHOSPHATASE 714 U/L (46-116); ASPARTATE AMINOTRANSFERASE 52 U/L (15-37); BILIRUBIN,DIRECT 0.1 mg/dL (0.0-0.2); BILIRUBIN,TOTAL 0.4 mg/dL (0.2-1.0); CALCIUM, SERUM 12.4 mg/dL (8.5-10.1); CARBON DIOXIDE 18 mmol/L (21-32); CHLORIDE 98 mmol/L (98-107); GLUCOSE 148 mg/dL (74-106); POTASSIUM 4.6 mmol/L (3.5-5.1); SODIUM SERUM 134 mmol/L (136-145); TOTAL PROTEIN, SERUM 10.6 g/dL (6.4-8.2)
[2017-10-29 11:50] LABS: TROPONIN I < 0.017 ng/mL (0.00-0.056)
[2017-10-29 11:51] LABS: CREATININE 8.4 mg/dL (0.6-1.3); UREA NITROGEN, BLOOD 146 mg/dL (7-18)
[2017-10-29] MEDS ORDERED: ACET-2605 GT (12:11)
[2017-10-29] MEDS ORDERED: ASPI-1169 GT (12:11)
[2017-10-29] MEDS ORDERED: FERR325T23 GT (12:11)
[2017-10-29] MEDS ORDERED: MAGN400O6 GT (12:11)
[2017-10-29] MEDS ORDERED: DONE5TAB7 PO (12:11)
[2017-10-29] MEDS ORDERED: INSU100V30 SQ (12:11)
[2017-10-29] MEDS ORDERED: AMLO5TAB4 GT (12:11)
[2017-10-29] MEDS ORDERED: NA P133E RC (12:11)
[2017-10-29 12:15] LABS: APPEARANCE,URINE Cloudy (CLEAR); BILIRUBIN,URINE Negative (NEGATIVE); BLOOD, URINE Large Ery/uL (NEGATIVE); COLOR,URINE Yellow (YELLOW); KETONES,URINE Negative (NEGATIVE); LEUKOCYTE ESTERASE ,URINE Large (NEGATIVE); NITRITE, URINE Negative (NEGATIVE); PH,URINE 8.5 (5.0-8.0); PROTEIN,URINE >=300 mg/dl (NEGATIVE); UGLUCOSE Negative (NEGATIVE); UROBILINOGEN,URINE 0.2 EU/dL (0.2)
--- NOTE | 2017-10-29 12:25 | NUR ---
CALLED [facility], DRUM STRAIGHTENER WAS PAGED.
[2017-10-29 12:26] LABS: BACTERIA,URINE Many /HPF (None Seen); SQUAMOUS EPITHELIAL CELL,UR Few /HPF (None Seen); WBC,URINE TOO NUMEROUS TO COUN /HPF (0-3)
[2017-10-29] MEDS ORDERED: MEROPENEM 1 G in IV NS 0.9% 100 ML IV ONE (12:30)
[2017-10-29] MEDS ORDERED: IV NS 0.9% 1,000 ML BAG IV ONE (12:30)
[2017-10-29 13:04] VITALS: BP 90/70
--- NOTE | 2017-10-29 13:07 | NUR ---
RT NOTE PT PLACED ON VENT PER MD ORDER. SETTINGS ENDORSED BY TRANSPORT RT AC 20 500 40% +5. PT HAS SHILEY [address] CUFF INFLATED. ALARMS SET PER PROTOCOL AND AUDIBLE. AMBU BAG AT BED SIDE. NO DISTRESS NOTED. PT AWAKE AND ALERT. Addendum: 10/29/17 at 1314 by DARRIAN ALLEN RT Amended: Links added.
--- NOTE | 2017-10-29 14:25 | NUR ---
TRANSFERED TO FLOOR. STABLE CONDITION.
[2017-10-29 14:30] VITALS: BP 99/65
--- NOTE | 2017-10-29 14:30 | NUR ---
FINA TELE ADMISSION NOTES ADMITTED PT FROM ER WITH DX OF HYPOTENSION AND UTI.PT IS ALERT AND VERBALLY RESPONSIVE ON MECH VENT WITH SETTINGS.WITH SHILEY #[address] AC 20 TV 500 FIO2 40% PEEP 5.O2 SAT 100%.DENIES ANY PAIN OR DISTRESS AT THIS TIME.ON TELE SR 60.WITH GT INTACT.WITH COLOSTOMY SITE WITH RED SURROUNDING AREA.WITH VILLA CATHETER INTACT DRAINING YELLOWISH GREEN THICK CLOUDY URINE IN THE VILLA BAG.BODY CHECK DONE WITH REDNESS IN BILATERAL GROIN AREA, SCROTUM,SACROCCYX AND BILATERAL BUTTOCKS AREA.CHANGED PT'S COLOSTOMY BAG AND APPLIED Z GUARD ON RED AFFECTED AREAS OF SCROTUM,SACROCOCCYX,PANCHO GROIN AND BUTTOCKS AREA.WILL PAGE DR KRIS SALDANA FOR ADMISSION ORDERS.TURNED ON HIS LEFT SIDE.AFLOAT PANCHO HEELS WITH PILLOWS.CALL LIGHT PLACED WITHIN REACH.
[2017-10-29] MEDS ORDERED: ACETAMINOPHEN 650 MG/20.3 ML UDC PO PRN (16:30)
[2017-10-29] MEDS ORDERED: MAGNESIUM HYDROXIDE 30 ML UDC GT PRN (16:30)
[2017-10-29] MEDS ORDERED: NA PHOS,M-B/NA PHOS,DI-BA 1 EA ENEMA RC PRN (16:30)
[2017-10-29] MEDS ORDERED: INSULIN REGULAR, HUMAN 100 UNIT/ML 3 ML VIAL SQ PRN (16:30)
[2017-10-29] MEDS ORDERED: MISCELLANEOUS MED 1 EA EA GT PRN (16:30)
[2017-10-29] MEDS ORDERED: NEPRO 1,000 ML BOTTLE GT PRN (16:30)
[2017-10-29] MEDS ORDERED: ONDANSETRON 4 MG TAB.RAPDIS SL PRN (16:30)
[2017-10-29] MEDS ORDERED: IPRATROPIUM NEB FS 0.5 MG/2.5 ML AMPUL.NEB NEB PRN (17:00)
[2017-10-29] MEDS: GABAPENTIN 300 MG CAPSULE GT SCH (18:47)
[2017-10-29] MEDS: LEVETIRACETAM SOL (5 ML) 100 MG/ML UDC GT SCH (18:48)
[2017-10-29] MEDS ORDERED: FEE PK DOSING 1 MIN EA MC ONE (18:48)
[2017-10-29] MEDS: MIDODRINE HCL (5MG) 5 MG TABLET PO SCH (18:48)
[2017-10-29] MEDS: ACIDOPHILUS/BULGARICUS 1 EACH TAB.CHEW GT SCH (18:48)
[2017-10-29] MEDS: BLOOD SUGAR DIAGNOSTIC 1 EACH STRIP IN SCH (18:49)
[2017-10-29] MEDS: SUCRALFATE 1 G/10 ML UDC GT SCH (18:51)
[2017-10-29] MEDS: NEPRO 1,000 ML BOTTLE GT PRN (19:22)
--- NOTE | 2017-10-29 19:28 | NUR ---
TD RN NOTES RECEIVED PT ON BED SLEEPING. A/OX2. ON MECH VENT SETTING SATURATING WELL. ON TELE MONITOR SR 60S. COLOSTOMY BAG INTACT. SUPRAPUBIC CATH INPLACED AND DRAINING WELL. ON GTUBE FEEDING @40CC/HR NO RESIDUAL . IV ACCESS ON LHAND G20 PATENT AND INTACT. HD ACCESS ON LCW NO SIGN OF BLEEDING OR INFECTION. HEAD OF BED ELEVATED. BED ALARM ON. SIDE RAILS UP. CALL LIGHT WITHIN REACH. WILL CONTINUE TO MONITOR PT CLOSELY.
[2017-10-29] MEDS ORDERED: ALBUTEROL FS 2.5 MG/0.5 ML VIAL.NEB NEB PRN (19:30)
[2017-10-29 20:00] VITALS: BP 105/67
[2017-10-29] MEDS ORDERED: VANCOMYCIN 1 GM in IV D5W 250 ML IV ONE (20:00)
[2017-10-29] MEDS: Z GUARD REMEDY 4 OZ OINT TP SCH ×2 (20:36→21:23)
[2017-10-29] MEDS: CHLORHEXIDINE GLUCONATE 15 ML UDC MM SCH (21:22)
[2017-10-29] MEDS: METOCLOPRAMIDE HCL 10 MG TABLET GT SCH (21:23)
[2017-10-29] MEDS: DONEPEZIL 5 MG TABLET PO SCH (21:23)
[2017-10-29] MEDS: PANTOPRAZOLE 40 MG/PACK PACK GT SCH (21:23)
[2017-10-30] VITALS: BP 100/69
[2017-10-30] MEDS ORDERED: DEXTROSE 50%-WATER 50 ML DISP.SYRIN IV PRN
[2017-10-30] MEDS ORDERED: BLOOD SUGAR DIAGNOSTIC 1 EACH STRIP IN SCH
[2017-10-30] MEDS: SUCRALFATE 1 G/10 ML UDC GT SCH ×5 (00:03→23:12)
[2017-10-30] MEDS: BLOOD SUGAR DIAGNOSTIC 1 EACH STRIP IN SCH ×5 (00:03→23:23)
[2017-10-30] MEDS: INSULIN REGULAR, HUMAN 100 UNIT/ML 3 ML VIAL SQ PRN ×2 (00:20→23:23)
[2017-10-30 04:00] VITALS: BP 101/67
[2017-10-30 06:48] LABS: BASOPHILS # (AUTO) 0.1 /CMM (0.0-0.2); BASOPHILS % (AUTO) 0.8 % (0.0-2.0); EOSINOPHILS % (AUTO) 5.7 % (0.0-6.0); HEMATOCRIT 40 % (39-51); HEMOGLOBIN 12.5 g/dL (13.5-17.5); LYMPHOCYTES # (AUTO) 0.6 /CMM (0.8-4.8); LYMPHOCYTES % (AUTO) 4.4 % (20.0-44.0); MEAN CORPUSCULAR HEMOGLOBIN 30 PG (26.0-33.0); MEAN CORPUSCULAR HGB CONC 31 g/dl (31.0-36.0); MEAN CORPUSCULAR VOLUME 97 fL (80-96); MONOCYTES % (AUTO) 7.6 % (2.0-12.0); NEUTROPHILS # (AUTO) 10.6 /CMM (1.8-8.9); NEUTROPHILS % (AUTO) 81.5 % (43.0-81.0); PLATELET COUNT (AUTO) 365 /CMM (150-450); RDW COEFFICIENT OF VARIATION 17.7 (11.5-15.0); RED BLOOD CELL COUNT(AUTO) 4.14 MIL/uL (4.5-6.0); WHITE BLOOD COUNT (AUTO) 12.9 K/uL (4.3-11.0)
[2017-10-30] MEDS ORDERED: VANCOMYCIN 500 MG in IV D5W 100 ML IV PRN (07:00)
--- NOTE | 2017-10-30 07:05 | NUR ---
RN NOTES RECEIVED PT ON BED, VENT/TRACH DEPENDENT, TRACH CARE DONE, TOLERATING CURRENT VENT SETTING WELL, ON TELE MONITOR SR, HR IN 60S. COLOSTOMY BAG INTACT. SUPRAPUBIC CATH INPLACED AND DRAINING WELL. NEPHRO @40CC/HR RUNNING VIA GT , NO RESIDUAL NOTED. IV ACCESS ON L HAND G20 CDI,L CW HD CATH SITE CDI, NO SIGN OF BLEEDING OR INFECTION. HOB ELEVATED. BED ALARM ON. SIDE RAILS UPx3, CALL LIGHT WITHIN EASY REACH. BED LOCKED AND IN LOWEST POSITION, WILL CONTINUE TO MONITOR PT CLOSELY.
[2017-10-30 07:13] LABS: CALCIUM, SERUM 12.1 mg/dL (8.5-10.1)
--- NOTE | 2017-10-30 07:15 | NUR ---
TD RN NOTES NO ACUTE CHANGES NOTE DURING THE SHIFT. PROVIDED COMFORT AND SAFETY. DUE MEDS GIVEN. ENDORSE TO THE AM NURSE FOR CLAUDIA.
[2017-10-30 07:23] LABS: CREATININE 8.9 mg/dL (0.6-1.3)
[2017-10-30 08:00] VITALS: BP 114/72
[2017-10-30] MEDS: ACIDOPHILUS/BULGARICUS 1 EACH TAB.CHEW GT SCH ×2 (08:34→16:26)
[2017-10-30] MEDS: PANTOPRAZOLE 40 MG/PACK PACK GT SCH ×2 (08:34→21:59)
[2017-10-30] MEDS: ZINC SULFATE 220 MG CAPSULE GT SCH (08:34)
[2017-10-30] MEDS: VIT B CMPLX 3/FA/VIT C/BIOTIN 1 TAB TABLET GT SCH (08:34)
[2017-10-30] MEDS: FERROUS SULFATE (325 MG) 325 MG/TAB TABLET GT SCH (08:35)
[2017-10-30] MEDS: ASPIRIN 81 MG TAB.CHEW GT SCH (08:35)
[2017-10-30] MEDS: ESCITALOPRAM OXALATE (10 MG) 10 MG TABLET GT SCH (08:35)
[2017-10-30] MEDS: METOCLOPRAMIDE HCL 10 MG TABLET GT SCH ×2 (08:35→21:59)
[2017-10-30] MEDS: CHLORHEXIDINE GLUCONATE 15 ML UDC MM SCH ×2 (08:35→21:59)
[2017-10-30] MEDS: MIDODRINE HCL (5MG) 5 MG TABLET PO SCH ×3 (08:35→16:25)
[2017-10-30] MEDS: LEVETIRACETAM SOL (5 ML) 100 MG/ML UDC GT SCH ×2 (08:35→16:24)
[2017-10-30] MEDS: AMLODIPINE BESYLATE 5 MG TABLET GT SCH (08:36)
[2017-10-30] MEDS: GABAPENTIN 300 MG CAPSULE GT SCH ×3 (08:38→16:26)
[2017-10-30] MEDS: PROSOURCE / PROSTAT (PYXIS) 30 ML UDC GT SCH (08:39)
[2017-10-30] MEDS: ASCORBIC ACID 500 MG TABLET GT SCH (08:40)
[2017-10-30] MEDS: Z GUARD REMEDY 4 OZ OINT TP SCH ×2 (11:06→22:00)
[2017-10-30 12:00] VITALS: BP 110/74
--- NOTE | 2017-10-30 12:28 | NUR ---
RN NOTES PT IS RECEIVING HD AT THIS TIME
[2017-10-30] MEDS: MEROPENEM 500 MG in IV NS 0.9% 50 ML IV SCH (13:45)
--- NOTE | 2017-10-30 13:56 | NUR ---
PT KIMBERLY'D ON MECHANICAL VENT WITH SETTINGS CHARTED. SX DONE T/O SHIFT. PT KIMBERLY PATENT AND SECURE. AMBU BAG AT BEDSIDE. VENT PLUGGED INTO RED OUTLET. ALARMS ARE ON AND AUDIBLE. WILL CONTINUE TO MONITOR. Addendum: 10/30/17 at 1357 by BORIS LUU RT Amended: Links added.
[2017-10-30] MEDS: LORAZEPAM 1 MG TABLET GT PRN (15:33)
[2017-10-30 16:00] VITALS: BP 132/77
--- NOTE | 2017-10-30 18:32 | NUR ---
RN NOTES TRACH SUCTIONING DONE , VSS STABLE , NO DISTRESS NOTED ON THIS SHIFT , WILL ENDORSE TO LEAD SECURITY OFFICER NURSE FOR CLAUDIA.
[2017-10-30 20:00] VITALS: BP 102/72
[2017-10-30] MEDS: DONEPEZIL 5 MG TABLET PO SCH (21:59)
--- NOTE | 2017-10-30 22:20 | NUR ---
RN NOTES RECEIVED PATIENT RESTING COMFORTABLY IN BED WITH NO RESPIRATORY DISTRESS OR SHORTNESS OF BREATH. BREATHING EVEN AND UNLABORED. VENT SETTING WELL TOLERATED. NO PHYSICAL MANIFESTATION OF PAIN OR DISCOMFORT. ALERT AND ORIENTED X 2 WITH CONFUSION AND DISORIENTATION. VERBALLY ABLE TO COMMUNICATE NEEDS. COLOSTOMY AND SUPRAPUBIC CATHETER IN PLACE, INTACT DRAINING SOFT BROWL BOWEL MOVEMENT AND CLEAR YELLOW WITH NO FOUL ODOR URINGE. GTUBE IN PLACE, FEEDING WELL TOLERATED. WILL CONTINUE TO MONITOR.
[2017-10-31] VITALS (7 sets, daily range): BP systolic 76–130; BP diastolic 43–75
[2017-10-31] MEDS: NEPRO 1,000 ML BOTTLE GT PRN (02:33)
[2017-10-31] MEDS: SUCRALFATE 1 G/10 ML UDC GT SCH ×4 (06:00→23:50)
[2017-10-31] MEDS: BLOOD SUGAR DIAGNOSTIC 1 EACH STRIP IN SCH ×4 (06:01→23:50)
[2017-10-31] MEDS: INSULIN REGULAR, HUMAN 100 UNIT/ML 3 ML VIAL SQ PRN (06:01)
--- NOTE | 2017-10-31 08:00 | NUR ---
RN NOTE RECEIVED PATIENT IN BED, AWAKE ALERT AND ORIENTED X2, HE IS ABLE TO MAKE THINGS KNOWN AND VERBALIZE NEEDS. VENT/TRACH DEPENDENT WITH APPROPRIATE SETTINGS SATURATING WELL. NOT ON ANY FORM OF DISTRESS. ON REAL ESTATE JOB TITLES SINUS RHYTHM HR OF 63. NO FACIAL GRIMACING NOTED. HOB ELEVATED WITH ONGOING GT FEEDING WITH NO RESIDUAL NOTED. LEFT HAND IV SITE INTACT AND PATENT. SUPRAPUBIC CATHETER INTACT AND PATENT. ALL SAFETY MEASURES DONE. BED ALARMED, LOW AND LOCKED POSITION. PLACED CALL LIGHT WITHIN REACH. WILL CONTINUE TO MONITOR.
--- NOTE | 2017-10-31 08:10 | NUR ---
RT RECEIVED PT TRACH ON VENT WITH NOTED SETTINGS. SOFTWARE DEVELOPMENT ENGINEER DONE AND TRACH IS SECURE. VENT ALARMS CHECKED AND AUDIBLE. VENT PLUGGED IN RED OUTLET. AMBU BAG NOTED HOB. SX WITH MOD THK WHITE/YELLOW SECRETIONS. PT CONNECTED TO CONTINUOUS PULSE OX. TOLERATING SETTINGS WELL. NO SOB OR DISTRESS NOTED, WILL CONTINUE TO MONITOR T/O SHIFT.
[2017-10-31] MEDS: Z GUARD REMEDY 4 OZ OINT TP SCH ×2 (08:33→21:00)
[2017-10-31] MEDS: LEVETIRACETAM SOL (5 ML) 100 MG/ML UDC GT SCH ×2 (08:34→16:37)
[2017-10-31] MEDS: VIT B CMPLX 3/FA/VIT C/BIOTIN 1 TAB TABLET GT SCH (08:34)
[2017-10-31] MEDS: METOCLOPRAMIDE HCL 10 MG TABLET GT SCH ×2 (08:34→22:35)
[2017-10-31] MEDS: ZINC SULFATE 220 MG CAPSULE GT SCH (08:34)
[2017-10-31] MEDS: ASCORBIC ACID 500 MG TABLET GT SCH (08:34)
[2017-10-31] MEDS: PANTOPRAZOLE 40 MG/PACK PACK GT SCH ×2 (08:34→22:35)
[2017-10-31] MEDS: ASPIRIN 81 MG TAB.CHEW GT SCH (08:35)
[2017-10-31] MEDS: ESCITALOPRAM OXALATE (10 MG) 10 MG TABLET GT SCH (08:35)
[2017-10-31] MEDS: CHLORHEXIDINE GLUCONATE 15 ML UDC MM SCH ×2 (08:35→22:34)
[2017-10-31] MEDS: FERROUS SULFATE (325 MG) 325 MG/TAB TABLET GT SCH (08:35)
[2017-10-31] MEDS: ACIDOPHILUS/BULGARICUS 1 EACH TAB.CHEW GT SCH ×2 (08:35→16:38)
[2017-10-31] MEDS: GABAPENTIN 300 MG CAPSULE GT SCH ×3 (08:35→16:37)
[2017-10-31] MEDS: MIDODRINE HCL (5MG) 5 MG TABLET PO SCH ×3 (08:36→16:41)
[2017-10-31] MEDS: AMLODIPINE BESYLATE 5 MG TABLET GT SCH (08:36)
[2017-10-31] MEDS: PROSOURCE / PROSTAT (PYXIS) 30 ML UDC GT SCH (08:36)
[2017-10-31 09:00] LABS: BASOPHILS % (AUTO) 0.4 % (0.0-2.0); EOSINOPHILS % (AUTO) 13.9 % (0.0-6.0); HEMATOCRIT 37 % (39-51); HEMOGLOBIN 11.6 g/dL (13.5-17.5); LYMPHOCYTES # (AUTO) 0.3 /CMM (0.8-4.8); LYMPHOCYTES % (AUTO) 3.2 % (20.0-44.0); MEAN CORPUSCULAR HEMOGLOBIN 30 PG (26.0-33.0); MEAN CORPUSCULAR HGB CONC 31 g/dl (31.0-36.0); MEAN CORPUSCULAR VOLUME 96 fL (80-96); MONOCYTES # (AUTO) 1.1 /CMM (0.1-1.30); MONOCYTES % (AUTO) 12.6 % (2.0-12.0); NEUTROPHILS # (AUTO) 6.3 /CMM (1.8-8.9); NEUTROPHILS % (AUTO) 69.9 % (43.0-81.0); PLATELET COUNT (AUTO) 322 /CMM (150-450); RDW COEFFICIENT OF VARIATION 17.3 (11.5-15.0); RED BLOOD CELL COUNT(AUTO) 3.86 MIL/uL (4.5-6.0)
[2017-10-31 09:25] LABS: CALCIUM, SERUM 10.8 mg/dL (8.5-10.1); CREATININE 6.4 mg/dL (0.6-1.3); MAGNESIUM 2.4 mg/dL (1.8-2.4); PHOSPHORUS 2.2 mg/dL (2.5-4.9); POTASSIUM 4.4 mmol/L (3.5-5.1)
--- NOTE | 2017-10-31 12:00 | NUR ---
RN NOTE DIALYSIS NURSE AT BEDSIDE. PATIENT WILL BE GETTING DIALYSIS TODAY.
[2017-10-31] MEDS ORDERED: NEUTRA PHOS 1 POWD.PACKET NG ONE (12:30)
[2017-10-31] MEDS: MEROPENEM 500 MG in IV NS 0.9% 50 ML IV SCH (13:06)
--- NOTE | 2017-10-31 15:30 | NUR ---
RN NOTE GENIE FROM [facility] CALLED TO NOTIFY ABOUT PATIENT. PATIENT IS POSITIVE FOR MRSA NARES. ISOLATION PRECAUTIONS DONE. MADE AWARE.
--- NOTE | 2017-10-31 19:07 | NUR ---
RN NOTE PATIENT REMAINED STABLE THROUGHOUT SHIFT. NO ACUTE CHANGES OR DISTRESS NOTED. WILL ENDORSE TO NEXT SHIFT TO CONTINUE CONTINUITY OF CARE.
--- NOTE | 2017-10-31 19:08 | NUR ---
JAIL GUARD NOTES RECEIVED PT ON BED. A/OX2. ON [facility] VENT SETTING SATURATING WELL. ON TELE MONITOR SB 57. COLOSTOMY BAG INTACT. SUPRAPUBIC CATHETER DRAINING WELL. IV ACCESS ON LEFT HAND G20 PATENT AND INTACT. HEAD OF BED ELEVATED. SIDE RAILS UP. CALL LIGHT WITHIN REACH. WILL CONTINUE TO MONITOR PT CLOSELY.
[2017-10-31] MEDS: MUPIROCIN OINT 2% 22 GM TUBE SCH (22:35)
[2017-10-31] MEDS: DONEPEZIL 5 MG TABLET PO SCH (22:35)
[2017-11-01] VITALS: BP_SYST 92; BP_SYST 95; BP_DIAS 79
[2017-11-01] MEDS: NEPRO 1,000 ML BOTTLE GT PRN ×2 (01:01→21:15)
[2017-11-01 04:00] VITALS: BP 94/53
[2017-11-01] MEDS: SUCRALFATE 1 G/10 ML UDC GT SCH ×4 (05:06→23:02)
[2017-11-01] MEDS: BLOOD SUGAR DIAGNOSTIC 1 EACH STRIP IN SCH ×4 (05:06→23:02)
[2017-11-01 07:02] LABS: BASOPHILS % (AUTO) 0.3 % (0.0-2.0); EOSINOPHILS % (AUTO) 10.5 % (0.0-6.0); HEMATOCRIT 35 % (39-51); LYMPHOCYTES # (AUTO) 0.7 /CMM (0.8-4.8); LYMPHOCYTES % (AUTO) 6.3 % (20.0-44.0); MEAN CORPUSCULAR HEMOGLOBIN 30 PG (26.0-33.0); MEAN CORPUSCULAR HGB CONC 31 g/dl (31.0-36.0); MEAN CORPUSCULAR VOLUME 96 fL (80-96); MONOCYTES # (AUTO) 1.6 /CMM (0.1-1.30); MONOCYTES % (AUTO) 15.3 % (2.0-12.0); NEUTROPHILS # (AUTO) 7.2 /CMM (1.8-8.9); NEUTROPHILS % (AUTO) 67.6 % (43.0-81.0); PLATELET COUNT (AUTO) 282 /CMM (150-450); RDW COEFFICIENT OF VARIATION 17.7 (11.5-15.0); RED BLOOD CELL COUNT(AUTO) 3.67 MIL/uL (4.5-6.0); WHITE BLOOD COUNT (AUTO) 10.7 K/uL (4.3-11.0)
[2017-11-01 07:14] LABS: CALCIUM, SERUM 10.6 mg/dL (8.5-10.1); CREATININE 4.5 mg/dL (0.6-1.3); MAGNESIUM 2.1 mg/dL (1.8-2.4); POTASSIUM 3.9 mmol/L (3.5-5.1)
--- NOTE | 2017-11-01 07:24 | NUR ---
CFO CONTROLLER NOTES NO ACUTE CHANGES NOTED DURING THE SHIFT. DUE MEDS GIVEN. PROVIDED COMFORT AND SAFETY. ENDORSE TO THE AM NURSE FOR CLAUDIA.
--- NOTE | 2017-11-01 07:30 | NUR ---
RACEHORSE TRAINER INITIAL NOTES RECEIVED PATIENT IN BED, ON VENTILATOR SETTINGS ORDERED, NO SOB, AOX2-3, ON TELE MONITORING SR, COLOSTOMY BAG IN PLACE CLEAN AND DRAINING, SUPRAPUBIC CATHETER IN PLACE DRAINING YELLOW CLOUDY URINE, GTUBE IN PLACE ORDERED, NO RESIDUAL NOTED, HOB ELEVATED, IV L HAND 20G, CLEAN AND PATENT, HD ACCESS LCW, BED IN LOW AND LOCKED POSITION CALL LIGHT WITHIN REACH, WILL CONTINUE TO MONITOR.
[2017-11-01 08:00] VITALS: BP 95/58
[2017-11-01] MEDS: LEVETIRACETAM SOL (5 ML) 100 MG/ML UDC GT SCH ×2 (09:08→17:51)
[2017-11-01] MEDS: ESCITALOPRAM OXALATE (10 MG) 10 MG TABLET GT SCH (09:08)
[2017-11-01] MEDS: PANTOPRAZOLE 40 MG/PACK PACK GT SCH ×2 (09:08→20:55)
[2017-11-01] MEDS: ASPIRIN 81 MG TAB.CHEW GT SCH (09:08)
[2017-11-01] MEDS: VIT B CMPLX 3/FA/VIT C/BIOTIN 1 TAB TABLET GT SCH (09:08)
[2017-11-01] MEDS: ZINC SULFATE 220 MG CAPSULE GT SCH (09:08)
[2017-11-01] MEDS: FERROUS SULFATE (325 MG) 325 MG/TAB TABLET GT SCH (09:08)
[2017-11-01] MEDS: CHLORHEXIDINE GLUCONATE 15 ML UDC MM SCH ×2 (09:08→20:55)
[2017-11-01] MEDS: ACIDOPHILUS/BULGARICUS 1 EACH TAB.CHEW GT SCH ×2 (09:09→17:51)
[2017-11-01] MEDS: GABAPENTIN 300 MG CAPSULE GT SCH ×3 (09:09→17:52)
[2017-11-01] MEDS: MIDODRINE HCL (5MG) 5 MG TABLET PO SCH ×3 (09:09→17:52)
[2017-11-01] MEDS: PROSOURCE / PROSTAT (PYXIS) 30 ML UDC GT SCH (09:09)
[2017-11-01] MEDS: ASCORBIC ACID 500 MG TABLET GT SCH (09:09)
[2017-11-01] MEDS: METOCLOPRAMIDE HCL 10 MG TABLET GT SCH ×2 (09:09→20:55)
[2017-11-01] MEDS: Z GUARD REMEDY 4 OZ OINT TP SCH ×2 (09:10→21:20)
[2017-11-01] MEDS: MUPIROCIN OINT 2% 22 GM TUBE SCH ×2 (09:11→21:20)
[2017-11-01 09:28] LABS: BAND % (MANUAL) 1 % (0.0-5.0); EOSINOPHILS % (MANUAL) 12 % (0-4); LYMPHOCYTES % (MANUAL) 4 % (16-48); MONOCYTES % (MANUAL) 13 % (0-11.0); NEUTROPHILS % (MANUAL) 70 (42-76)
--- NOTE | 2017-11-01 10:46 | NUR ---
WOUND CARE CONSULT: PT FOLLOWED BY PLASTIC SURGERY TEAM. DEFER TO SURGICAL TEAM FOR WOUND TREATMENT PLAN. PT ON FIRST STEP MATTRESS. ALL SKIN PROTECTION AND PRESSURE ULCER PREVENTION MEASURES IN PLACE AND DISCUSSED WITH NURSING STAFF.
[2017-11-01 12:00] VITALS: BP 108/73
[2017-11-01] MEDS: MEROPENEM 500 MG in IV NS 0.9% 50 ML IV SCH (12:28)
[2017-11-01] MEDS ORDERED: LEVOFLOXACIN (750 MG) 750 MG TABLET PO SCH (14:00)
[2017-11-01 16:00] VITALS: BP 114/77
[2017-11-01] MEDS: LEVOFLOXACIN 500 MG /D5W 100ML 500 MG in PREMIX 1 EA IV SCH (16:02)
--- NOTE | 2017-11-01 18:39 | NUR ---
DRAFTER DETAIL END NOTES PATIENT RESTING IN BED, NO SIGNS OF DISTRESS, ALL NEEDS ATTENDED TO, WILL ENDORSE TO SOCIAL WORKER ASSISTANT FOR CONTINUITY OF CARE.
--- NOTE | 2017-11-01 19:23 | NUR ---
CLAIMS INVESTIGATOR OPENING NOTE RECEIVE PATIENT AWAKE IN BED, A/O X 2, TOLERATING VENT SETTINGS. NO C/O OF PAIN. NO SOB OR DISTRESS NOTED, CALL LIGHT WITHIN REACH. SAFETY MEASURES IMPLEMENTED. WILL CONTINUE TO MONITOR THROUGHOUT SHIFT.
[2017-11-01 20:00] VITALS: BP 147/94
[2017-11-01] MEDS: LORAZEPAM 1 MG TABLET GT PRN (20:56)
[2017-11-01] MEDS: DONEPEZIL 5 MG TABLET PO SCH (21:20)
[2017-11-01] MEDS: INSULIN REGULAR, HUMAN 100 UNIT/ML 3 ML VIAL SQ PRN (23:02)
[2017-11-02] VITALS (7 sets, daily range): BP systolic 98–120; BP diastolic 61–82
[2017-11-02] MEDS: INSULIN REGULAR, HUMAN 100 UNIT/ML 3 ML VIAL SQ PRN (05:00)
[2017-11-02] MEDS: SUCRALFATE 1 G/10 ML UDC GT SCH ×3 (05:00→18:00)
[2017-11-02] MEDS: BLOOD SUGAR DIAGNOSTIC 1 EACH STRIP IN SCH ×3 (05:00→18:00)
--- NOTE | 2017-11-02 06:33 | NUR ---
ASSOCIATE PROFESSOR OF ECONOMICS CLOSING NOTES PT COMFORTABLY ASLEEP AND EASILY AWAKEN, A/O X 2, VENT SETTINGS ORDERED. STABLE CONDITION. RESPIRATION EVEN AND UNLABORED. 02 SAT 100% KEPT CLEAN AND DRY AND COMFORTABLE, ALL NURSING CARE RENDERED. NEEDS ATTENDED AND ANTICIPATED, NO COMPLAINS OF PAIN/CHEST PAIN. ASSISTED REPOSITION Q2H, COLOSTOMY CARE PROVIDED. F/C CARE PROVIDED, TREATMENT ORDERED. GOOD SKIN CARE. ON LOW BED AT ALL TIMES TO ENSURE SAFETY. SAFE HAZARD FREE ENVIRONMENT PROVIDED. CALL LIGHT WITHIN EASY TO REACH. WILL ENDORSE NEXT SHIFT CONTINUITY OF CARE.
[2017-11-02 07:17] LABS: EOSINOPHILS % (AUTO) 5.4 % (0.0-6.0); HEMATOCRIT 37 % (39-51); HEMOGLOBIN 11.5 g/dL (13.5-17.5); LYMPHOCYTES # (AUTO) 0.8 /CMM (0.8-4.8); LYMPHOCYTES % (AUTO) 5.7 % (20.0-44.0); MEAN CORPUSCULAR HEMOGLOBIN 30 PG (26.0-33.0); MEAN CORPUSCULAR HGB CONC 31 g/dl (31.0-36.0); MEAN CORPUSCULAR VOLUME 96 fL (80-96); MONOCYTES # (AUTO) 1.7 /CMM (0.1-1.30); MONOCYTES % (AUTO) 12.8 % (2.0-12.0); NEUTROPHILS # (AUTO) 10.3 /CMM (1.8-8.9); NEUTROPHILS % (AUTO) 76.1 % (43.0-81.0); PLATELET COUNT (AUTO) 275 /CMM (150-450); RDW COEFFICIENT OF VARIATION 17.4 (11.5-15.0); RED BLOOD CELL COUNT(AUTO) 3.84 MIL/uL (4.5-6.0); WHITE BLOOD COUNT (AUTO) 13.5 K/uL (4.3-11.0)
[2017-11-02 07:38] LABS: CALCIUM, SERUM 11.2 mg/dL (8.5-10.1); CREATININE 5.2 mg/dL (0.6-1.3); POTASSIUM 4.1 mmol/L (3.5-5.1)
[2017-11-02] MEDS: CHLORHEXIDINE GLUCONATE 15 ML UDC MM SCH ×2 (09:00→21:33)
[2017-11-02] MEDS: MUPIROCIN OINT 2% 22 GM TUBE SCH ×2 (09:00→21:35)
[2017-11-02] MEDS: PROSOURCE / PROSTAT (PYXIS) 30 ML UDC GT SCH (09:00)
[2017-11-02] MEDS: FERROUS SULFATE (325 MG) 325 MG/TAB TABLET GT SCH (09:00)
[2017-11-02] MEDS: ZINC SULFATE 220 MG CAPSULE GT SCH (09:00)
[2017-11-02] MEDS: VIT B CMPLX 3/FA/VIT C/BIOTIN 1 TAB TABLET GT SCH (09:00)
[2017-11-02] MEDS: ESCITALOPRAM OXALATE (10 MG) 10 MG TABLET GT SCH (09:00)
[2017-11-02] MEDS: ASPIRIN 81 MG TAB.CHEW GT SCH (09:00)
[2017-11-02] MEDS: ACIDOPHILUS/BULGARICUS 1 EACH TAB.CHEW GT SCH ×2 (09:00→17:00)
[2017-11-02] MEDS: LEVETIRACETAM SOL (5 ML) 100 MG/ML UDC GT SCH ×2 (09:00→17:00)
[2017-11-02] MEDS: Z GUARD REMEDY 4 OZ OINT TP SCH ×2 (09:00→21:36)
[2017-11-02] MEDS: GABAPENTIN 300 MG CAPSULE GT SCH ×3 (09:00→17:00)
[2017-11-02] MEDS: MIDODRINE HCL (5MG) 5 MG TABLET PO SCH ×3 (09:00→17:00)
[2017-11-02] MEDS: METOCLOPRAMIDE HCL 10 MG TABLET GT SCH ×2 (09:00→21:33)
[2017-11-02] MEDS: ASCORBIC ACID 500 MG TABLET GT SCH (09:00)
[2017-11-02] MEDS: PANTOPRAZOLE 40 MG/PACK PACK GT SCH ×2 (09:00→21:33)
--- NOTE | 2017-11-02 15:07 | NUR ---
Dialysis output 0ml per dialysis nurse.
--- NOTE | 2017-11-02 19:20 | NUR ---
WORM SORTER NOTE PATIENT PRESENTS AOX2, ABLE TO MAKE NEEDS KNOWN, ISOLATION FRO MRSA OF NARES, DENIES PAIN, NO S/SX OF RESPIRATORY OR CARDIAC DISTRESS, TRACH TO VENT ON SETTINGS ORDERED, ON TELE SR, COLOSTOMY IN PLACE, SITE CDI, SUPRAPUBIC CATHETER DRAINING TO GRAVITY, SKIN KEPT CLEAN AND DRY, L HAND #20G PATENT FLUSHING WELL, HD CATH LCW, SITE CDI, G TUBE NEPRO AT 40ML/HR, PATENT FLUSHING WELL, CALL LIGHT WITHIN REACH, BED IN LOW LOCKED POSITION, SAFETY MAINTAINED AT ALL TIMES, WILL CONTINUE TO MONITOR FOR ANY CHANGES IN CONDITION.
--- NOTE | 2017-11-02 19:47 | NUR ---
Handoff to night nurse, VIVIANA Ayon. Esau Beck RN
[2017-11-02] MEDS: DONEPEZIL 5 MG TABLET PO SCH (21:33)
[2017-11-03] VITALS: BP_SYST 129; BP_SYST 151; BP_DIAS 59; BP_DIAS 78
[2017-11-03] MEDS: SUCRALFATE 1 G/10 ML UDC GT SCH ×3 (00:26→12:57)
[2017-11-03] MEDS: BLOOD SUGAR DIAGNOSTIC 1 EACH STRIP IN SCH ×3 (00:26→12:54)
[2017-11-03 04:00] VITALS: BP 97/62
[2017-11-03] MEDS: NEPRO 1,000 ML BOTTLE GT PRN (04:24)
[2017-11-03 07:50] LABS: EOSINOPHILS % (AUTO) 6.3 % (0.0-6.0); HEMATOCRIT 35 % (39-51); LYMPHOCYTES # (AUTO) 0.8 /CMM (0.8-4.8); LYMPHOCYTES % (AUTO) 8.1 % (20.0-44.0); MEAN CORPUSCULAR HEMOGLOBIN 30 PG (26.0-33.0); MEAN CORPUSCULAR HGB CONC 31 g/dl (31.0-36.0); MEAN CORPUSCULAR VOLUME 96 fL (80-96); MONOCYTES # (AUTO) 1.4 /CMM (0.1-1.30); MONOCYTES % (AUTO) 13.6 % (2.0-12.0); NEUTROPHILS # (AUTO) 7.2 /CMM (1.8-8.9); PLATELET COUNT (AUTO) 266 /CMM (150-450); RDW COEFFICIENT OF VARIATION 17.6 (11.5-15.0); RED BLOOD CELL COUNT(AUTO) 3.64 MIL/uL (4.5-6.0); WHITE BLOOD COUNT (AUTO) 10.1 K/uL (4.3-11.0)
[2017-11-03 08:00] VITALS: BP 91/64
[2017-11-03 08:03] LABS: ALBUMIN 2.9 g/dL (3.4-5.0); BILIRUBIN,TOTAL 0.3 mg/dL (0.2-1.0); CALCIUM, SERUM 10.7 mg/dL (8.5-10.1); CREATININE 4.3 mg/dL (0.6-1.3); MAGNESIUM 2.2 mg/dL (1.8-2.4); PHOSPHORUS 2.5 mg/dL (2.5-4.9); POTASSIUM 3.6 mmol/L (3.5-5.1)
[2017-11-03] MEDS: ACIDOPHILUS/BULGARICUS 1 EACH TAB.CHEW GT SCH (09:20)
[2017-11-03] MEDS: PANTOPRAZOLE 40 MG/PACK PACK GT SCH (09:20)
[2017-11-03] MEDS: ESCITALOPRAM OXALATE (10 MG) 10 MG TABLET GT SCH (09:20)
[2017-11-03] MEDS: PROSOURCE / PROSTAT (PYXIS) 30 ML UDC GT SCH (09:20)
[2017-11-03] MEDS: METOCLOPRAMIDE HCL 10 MG TABLET GT SCH (09:20)
[2017-11-03] MEDS: ASCORBIC ACID 500 MG TABLET GT SCH (09:20)
[2017-11-03] MEDS: LEVETIRACETAM SOL (5 ML) 100 MG/ML UDC GT SCH (09:20)
[2017-11-03] MEDS: VIT B CMPLX 3/FA/VIT C/BIOTIN 1 TAB TABLET GT SCH (09:20)
[2017-11-03] MEDS: GABAPENTIN 300 MG CAPSULE GT SCH ×2 (09:20→12:57)
[2017-11-03] MEDS: CHLORHEXIDINE GLUCONATE 15 ML UDC MM SCH (09:20)
[2017-11-03] MEDS: ASPIRIN 81 MG TAB.CHEW GT SCH (09:20)
[2017-11-03] MEDS: FERROUS SULFATE (325 MG) 325 MG/TAB TABLET GT SCH (09:20)
[2017-11-03] MEDS: ZINC SULFATE 220 MG CAPSULE GT SCH (09:20)
[2017-11-03] MEDS: MIDODRINE HCL (5MG) 5 MG TABLET PO SCH ×2 (09:24→12:55)
[2017-11-03] MEDS: MUPIROCIN OINT 2% 22 GM TUBE SCH (09:26)
[2017-11-03] MEDS: Z GUARD REMEDY 4 OZ OINT TP SCH (09:27)
[2017-11-03 12:00] VITALS: BP 90/58
--- NOTE | 2017-11-03 13:30 | NUR ---
NOON TIME MIDODRINE HELD BECAUSE 0900 MIDODRINE GIVEN AROUND 1130 DUE TO PT'S GT EXTREMELY CLOGGED. GT DECLOGGED BY RN GASTROENTEROLOGY BY FLUSHING WITH APPLE SAUCE AND WARM WATER. NEPHRO AT 40ML/HR RESTARTED. FEEDING HELD AROUND 0930. WILL CONT TO MONITOR.
[2017-11-03] MEDS: LEVOFLOXACIN 500 MG /D5W 100ML 500 MG in PREMIX 1 EA IV SCH (15:01)
[2017-11-03] MEDS ORDERED: VANCOMYCIN 500 MG in IV D5W 100 ML IV PRN (15:30)
[2017-11-03 16:00] VITALS: BP 107/67
--- NOTE | 2017-11-03 17:30 | NUR ---
DISCHARGE INSTRUCTIONS GIVEN TO EMT AND VIVIANA WIGGINS TO [facility]ENTER AT [facility]. HL REMOVED. GT PATENT, FLUSHING WELL.
[2017-11-04 10:27] LABS: *SPE A/G RATIO 0.8 (0.7-1.7); *SPE ALBUMIN 3.3 g/dL (2.9-4.4); *SPE ALPHA-1-GLOBULIN 0.3 g/dL (0.0-0.4); *SPE BETA GLOBULIN 1.1 g/dL (0.7-1.3); *SPE GLOBULIN, TOTAL 3.9 g/dL (2.2-3.9); *SPE M-SPIKE Not Observed g/dL (Not Observed); *SPEGAMMA GLOBULIN 1.5 g/dL (0.4-1.8)
[2017-11-04 11:11] LABS: PTH, INTACT 40 pg/mL (15-65)
== END 2017-11-03 17:50 | DRG 870 ==
LOC: ER 11:01 → TELE1 12:33 → TELE-TD 14:42 → TELE1 10-31 16:39
PROVIDERS: ADMIT Internal Medicine; ATTEND Internal Medicine
PROC: 5A1955Z Respiratory Ventilation, Greater than 96 Consecutive Hours (ICD-10-PCS; principal; 2017-10-29)
PROC: 5A1D70Z Performance of Urinary Filtration, Intermittent, Less than 6 Hours Per Day (ICD-10-PCS; 2017-10-30)
PROC: 5A1D70Z Performance of Urinary Filtration, Intermittent, Less than 6 Hours Per Day (ICD-10-PCS; 2017-10-31)
PROC: 5A1D70Z Performance of Urinary Filtration, Intermittent, Less than 6 Hours Per Day (ICD-10-PCS; 2017-11-02)
DX: A41.9 Sepsis, unspecified organism (principal); G93.40 Encephalopathy, unspecified; N18.6 End stage renal disease; I12.0 Hypertensive chronic kidney disease with stage 5 chronic kidney disease or end stage renal disease; J96.11 Chronic respiratory failure with hypoxia; N39.0 Urinary tract infection, site not specified; Z99.11 Dependence on respirator [ventilator] status; G82.20 Paraplegia, unspecified; G62.9 Polyneuropathy, unspecified; Q05.9 Spina bifida, unspecified; Z93.0 Tracheostomy status; Z99.2 Dependence on renal dialysis; D64.9 Anemia, unspecified; J44.9 Chronic obstructive pulmonary disease, unspecified; R13.10 Dysphagia, unspecified; Z86.14 Personal history of Methicillin resistant Staphylococcus aureus infection; Z93.1 Gastrostomy status; Z93.3 Colostomy status; Z87.440 Personal history of urinary (tract) infections; Z88.0 Allergy status to penicillin; Z88.2 Allergy status to sulfonamides; E83.9 Disorder of mineral metabolism, unspecified; I95.9 Hypotension, unspecified; B96.5 Pseudomonas (aeruginosa) (mallei) (pseudomallei) as the cause of diseases classified elsewhere; J84.10 Pulmonary fibrosis, unspecified; K20.9 Esophagitis, unspecified; Z79.4 Long term (current) use of insulin; L89.320 Pressure ulcer of left buttock, unstageable; L98.8 Other specified disorders of the skin and subcutaneous tissue; L89.310 Pressure ulcer of right buttock, unstageable; E86.9 Volume depletion, unspecified; E11.42 Type 2 diabetes mellitus with diabetic polyneuropathy; N31.9 Neuromuscular dysfunction of bladder, unspecified; M62.50 Muscle wasting and atrophy, not elsewhere classified, unspecified site; L89.610 Pressure ulcer of right heel, unstageable; L90.5 Scar conditions and fibrosis of skin; Z16.24 Resistance to multiple antibiotics; E83.52 Hypercalcemia; R74.8 Abnormal levels of other serum enzymes; R65.20 Severe sepsis without septic shock; M41.9 Scoliosis, unspecified; E11.22 Type 2 diabetes mellitus with diabetic chronic kidney disease
CPT/HCPCS: 31720; 36415; 71045-TC; 80048-TC; 80053-TC; 80076-TC; 80202-TC; 81000-TC; 82962-TC; 83605-TC; 83735-TC; 83970; 84100-TC; 84155; 84165; 84484-TC; 85025-TC; 85730-TC; 87040-TC; 87081-TC; 87086-TC; 87186-TC; 90935-TC; 94003-TC; 94760-TC; 94762-TC; A4216; A4606; A6253; A6402; A6403; J1815; J1953; J1956; J2185; J3370; J7030; J7060; J8597; Q0162; Z7610